=== PATIENT | female | born 1950 | race Caucasian/White ===

== ENCOUNTER → 2018-02-08 08:13 | Outpatient (CLI) | payer MEDICARE, BC, SELFPAY ==
[2018-02-08 14:08] LABS: Hemoglobin A1C 9.3 % (4.5-6.2)
== END ==
PROVIDERS: PCP Family Medicine; Visit Provider Family Medicine
DX: E11.40 Type 2 diabetes mellitus with diabetic neuropathy, unspecified (principal)
CPT/HCPCS: 36415; 83036

== ENCOUNTER 2018-05-17 07:19 | Outpatient (CLI) | payer MEDICARE, BC, SELFPAY ==
[2018-05-17 09:44] LABS: ALT 59 U/L (12-78); AST 29 U/L (15-37); Albumin 3.6 g/dL (3.4-5.0); Alkaline Phosphatase 121 U/L (46-116); Anion Gap 8.7 mmol/L (3-11); BUN 18 mg/dL (7-18); Bilirubin, Total 1.1 mg/dL (0.2-1.0); CO2 28.3 mmol/L (21.0-32.0); CREATININE 0.75 mg/dL (0.55-1.02); Calcium 9.1 mg/dL (8.5-10.1); Chloride 101 mmol/L (98-107); Glucose 328 mg/dL (70-100); Potassium 4.5 mmol/L (3.5-5.1); Sodium 138 mmol/L (136-145); Total Protein 6.7 g/dL (6.4-8.2)
[2018-05-17 11:21] LABS: Hemoglobin A1C 9.7 % (4.5-6.2)
== END 2018-05-17 07:39 ==
PROVIDERS: PCP Family Medicine; Visit Provider Family Medicine
DX: E11.40 Type 2 diabetes mellitus with diabetic neuropathy, unspecified (principal); I10 Essential (primary) hypertension; I27.20 Pulmonary hypertension, unspecified
CPT/HCPCS: 36415; 80053; 83036

== ENCOUNTER 2018-07-12 08:46 | Outpatient (CLI) | payer MEDICARE, BC, SELFPAY ==
[2018-07-12 16:08] LABS: Hemoglobin A1C 9.4 % (4.5-6.2)
== END 2018-07-12 09:06 ==
PROVIDERS: PCP Family Medicine; Visit Provider Family Medicine
DX: E11.40 Type 2 diabetes mellitus with diabetic neuropathy, unspecified (principal)
CPT/HCPCS: 83036

== ENCOUNTER 2018-07-18 12:56 | Outpatient (REF) | payer MEDICARE, SELFPAY ==
--- NOTE | 2018-07-18 11:30 | PAPFT_PTH ---
PATIENT: Madison Hoyos LOC: [facility] U#:[id number] AGE/SX: 67/F ROOM: RE07/18/[address]: Jenna Rodriguez MD, DC : 1950 BED: DIS: 07/18/2018 SPEC #: [id number] RECD: 07/18/18 13:06 STATUS: AUREA REEarnestine #: [id number] AMENA: 07/18/18 11:[address]: Jenna Rodriguez DEPT: [facility] Cytology RECD BY: Clotilde Valente Tissues: 1 - CX/ENDOCX FOR PAP SMEARS Procedures: PAP THIN PREP/UVM Screening HPV DNA PROBE Comments: [id number]
== END 2018-07-18 13:16 ==
LOC: LBN 12:56
PROVIDERS: PCP Family Medicine; Visit Provider Family Medicine
DX: Z12.4 Encounter for screening for malignant neoplasm of cervix (principal); Z11.51 Encounter for screening for human papillomavirus (HPV)
CPT/HCPCS: 88142; 87624

== ENCOUNTER 2018-07-26 01:05 | Outpatient (CLI) | payer MEDICARE, SELFPAY ==
--- NOTE | 2018-07-26 11:00 | DI.MAMMO_ITS ---
SYMPTOMS/DIAGNOSIS: SCREENING, Z12.31 MAMMOGRAM: Mammograms were interpreted according to the usual protocol including computer analysis with CAD system, tomosynthesis and C view imaging. Patient positioning was difficult due to the patient's inability to stand and hear directions as well as patient body habitus. The breasts are composed of fatty density tissue. No suspicious masses or suspicious microcalcifications are seen. There has been no significant change. IMPRESSION: Category I A, negative mammogram. Yearly screening mammography is recommended. [facility] ASSESSMENT OF FINDINGS: Negative. Category 1. Patient will receive a letter notifying them of these results. BI-RAD category A. The breasts are almost entirely fatty.
== END 2018-07-26 01:25 ==
PROVIDERS: PCP Family Medicine; Visit Provider Family Medicine
DX: Z12.31 Encounter for screening mammogram for malignant neoplasm of breast (principal)
CPT/HCPCS: 77063; 77067

== ENCOUNTER 2018-11-09 01:24 | Outpatient (CLI) | payer MEDICARE, BC, SELFPAY ==
[2018-11-09 10:43] LABS: Abs Immature Grans 0.01 k/cumm (0.0-0.09); Absolute Basophil Count 0.06 k/cumm (0.0-0.2); Absolute Lymphocyte Count 1.81 k/cumm (1.2-3.4); Absolute Monocyte Count 0.58 k/cumm (0.11-0.7); Absolute Neutrophil Count 5.16 k/cumm (1.2-6.7); Basophils % 0.8; Eosinophils % 2.6; HCT 50.8 % (36.0-46.0); HGB 17.2 g/dL (12.0-15.5); Immature Grans % 0.1; Lymphocytes % 23.1; Mean Corp. HGB Concentration 33.9 g/dL (32.0-36.0); Mean Corpuscular Hemoglobin 30.6 pg (27.0-33.0); Mean Corpuscular Volume 90.2 fL (80-95); Mean Platelet Volume 11.6 fL (8.0-11.0); Monocytes % 7.4; Platelet Count 213 x1000/uL (130-400); RBC 5.63 m/cumm (4.00-5.20); RBC Distribution Width 13.9 % (11.7-14.6); White Blood Cell Count 7.82 k/cumm (4.4-10.8)
[2018-11-09 11:05] LABS: Hemoglobin A1C 10.3 % (4.5-6.2)
[2018-11-09 11:35] LABS: Iron 75 ug/dL (50-175)
[2018-11-09 11:48] LABS: Ferritin 245 ng/mL (8-388); TSH (W/Ref FT4) 4.15 uIU/mL (0.358-3.74)
[2018-11-09 12:05] LABS: FREE T4 1.03 ng/dL (0.76-1.46)
== END 2018-11-09 01:44 ==
PROVIDERS: PCP Family Medicine; Visit Provider Family Medicine
DX: D75.1 Secondary polycythemia (principal); E03.9 Hypothyroidism, unspecified; I10 Essential (primary) hypertension; I27.20 Pulmonary hypertension, unspecified; E11.40 Type 2 diabetes mellitus with diabetic neuropathy, unspecified
CPT/HCPCS: 36415; 82728; 83036; 83540; 84439; 84443; 85025

== ENCOUNTER 2019-01-09 11:13 | Inpatient (IN) | payer MEDICARE, BC, SELFPAY ==
[2019-01-09 11:15] VITALS: BP 176/72; PULSE 107; RESP 16; TEMP 37.2; O2SAT 96
--- NOTE | 2019-01-09 11:49 | ED.GENADUL_ITS ---
Discharge Plan Discharge Details Chief Complaint: Cellulitis Admit Date/Time: 01/09/19 12:52 Admit Provider: Juliann Mack Attending Provider: Juliann Mack Primary Care Provider: Jenna Rodriguez ED Provider: Dennis Hernandez Discharge Data Discharge Date/Time-TO BE ENTERED AT DEPARTURE: 01/09/19 13:42 Medical Decision Making <Dennis Hernandez NP - Last Filed: 01/10/19 13:01> Patient presenting to the emergency department for chief complaint of rash to her breast. Patient states that she has had this for the past couple weeks and been trying various creams and ointments to get to improve but it is worsened. Patient denies any fever chills, chest pain, or difficulty breathing but she does state significant discomfort to her bilateral breast. Physical exam shows significant candidal dermatitis to the bilateral breast with some now spreading erythema mainly up in the left breast with some noted on the right breast. Exam is otherwise unremarkable. Patient is tachycardic and has history of diabetes and multiple other skin infections. Patient's blood sugar check is significantly elevated from baseline so plan to give subcu insulin pending further results. Labs were ordered including skin culture, blood cultures IV fluids, nystatin plus barrier, and Ancef for cellulitis. Review of labs show leukocytosis, elevated glucose, patient still pending cultures. Given patient's initial presentation with tachycardia, elevated glucose, and concern for significant infection I do feel that patient needs to be admitted. Called and spoke with Dr. Mack who agreed to admit the patient. Patient was also in agreement with this plan of care. Admitting provider did request EKG given patient's history of A. fib and concern for RVR. EKG was reviewed with attending physician and see notation for full interpretation but no signs of RVR is noted. <Remy Cabrales DO - Last Filed: 01/09/19 13:58> EKG 12: 33 Rate 74, QTc 457, QRS 80, atrial fibrillation with questionable underlying a trial flutter,, no significant ST elevations or depressions, no significant T wave inversions. Q waves noted in lead III. This Q wave is present on prior EKG from [facility] <Dennis Hernandez NP - Last Filed: 01/10/19 13:01> General Mode of arrival: ambulatory . Date/Time Provider Initiated Documentation: 01/09/19 11:16 . Limitations to Documentation: no limitations . Information obtained by: patient and RN notes reviewed . History of Present Illness 68 year old F presents to the emergency department with the chief complaint of Rash, described as severe, with intensity rated at 10. Quality is described as burning and sharp, and is localized to the chest (Bilateral breast). Patient started experiencing this week(s) (2) and it has been constant. No relieving factors improve symptom(s), No exacerbating factors reported . Patient did receive the following treatments prior to arrival, none Related Data Home Medications Medication Instructions Recorded Confirmed magnesium oxide 400 mg PO BID 09/22/12 01/09/19 nystatin 0 TOPICAL BID #60 gm 06/27/17 11/14/18 triamcinolone acetonide 2 - 4 gm TOPICAL BID PRN #80 gm 06/27/17 01/09/19 acetaminophen [Tylenol] 650 mg PO Q4H PRN PRN tab 11/18/17 01/09/19 atorvastatin 40 mg PO DAILY #90 tab-cap 02/13/18 01/09/19 fluoxetine [Prozac] 40 mg PO QAM #90 cap 02/13/18 01/09/19 levothyroxine 50 mcg PO DAILY #90 tab-cap 02/13/18 01/09/19 losartan [Cozaar] 100 mg PO QAM #90 tab-cap 02/13/18 01/09/19 metformin [Glucophage Xr] 750 mg PO DAILY #90 tab 02/13/18 01/09/19 ropinirole 1 mg tablet 3 mg PO HS #150 tab 03/27/18 01/09/19 insulin syringe needleless 1 mL #120 syringe 04/10/18 01/09/19 pen needle, diabetic 30 gauge x #300 ndl 04/10/18 01/09/1911/23 apixaban 5 mg tablet 5 mg PO BID #180 tab-cap 05/22/18 01/09/19 furosemide 80 mg tablet 80 mg PO DAILY #90 tab-cap 05/22/18 01/09/19 insulin U- 100 regular human 100 15 unit SUB-Q AC #1000 unit MDD 75 07/13/18 01/09/19 unit/mL injection solution metoprolol succinate ER 200 mg 200 mg PO DAILY #90 tab 07/13/18 01/09/19 tablet,extended release 24 hr insulin NPH isophane U-100 human 65 unit SUB-Q BID@0800,1999 #10 07/19/18 01/09/19 100 unit/mL (3 mL) subcutaneous pen vial blood-glucose meter #1 each 11/14/18 01/09/19 spironolactone 25 mg tablet 25 mg PO BID DIURETIC #60 tab 11/14/18 01/09/19 blood sugar diagnostic strips #400 each 11/29/18 01/09/19 lancets 28 gauge #400 ea 11/29/18 01/09/19 Previous Rx's Medication Instructions Recorded acetaminophen [Tylenol] 650 mg PO Q4H PRN PRN tab 11/18/17 atorvastatin 40 mg PO DAILY #90 tab-cap 02/13/18 fluoxetine [Prozac] 40 mg PO QAM #90 cap 02/13/18 levothyroxine 50 mcg PO DAILY #90 tab-cap 02/13/18 losartan [Cozaar] 100 mg PO QAM #90 tab-cap 02/13/18 metformin [Glucophage Xr] 750 mg PO DAILY #90 tab 02/13/18 ropinirole 1 mg tablet 3 mg PO HS #150 tab 03/27/18 insulin syringe needleless 1 mL #120 syringe 04/10/18 pen needle, diabetic 30 gauge x #300 ndl 04/10/1811/23 apixaban 5 mg tablet 5 mg PO BID #180 tab-cap 05/22/18 furosemide 80 mg tablet 80 mg PO DAILY #90 tab-cap 05/22/18 insulin U- 100 regular human 100 15 unit SUB-Q AC #1000 unit MDD 75 07/13/18 unit/mL injection solution metoprolol succinate ER 200 mg 200 mg PO DAILY #90 tab 07/13/18 tablet,extended release 24 hr insulin NPH isophane U-100 human 65 unit SUB-Q BID@0800,1999 #10 07/19/18 100 unit/mL (3 mL) subcutaneous pen vial blood-glucose meter #1 each 11/14/18 spironolactone 25 mg tablet 25 mg PO BID DIURETIC #60 tab 11/14/18 blood sugar diagnostic strips #400 each 11/29/18 lancets 28 gauge #400 ea 11/29/18 Allergies Allergy/AdvReac Type Severity Reaction Status Date / Time No Known Allergies Allergy Unverified 01/09/19 11:51 General Stated Complaint: Cellulitis JOLEEN: 3 Review of Systems <Dennis Hernandez NP - Last Filed: 01/10/19 13:01> Constitutional Denies chills and Denies fever(s) Cardiovascular Denies chest pain and Denies dyspnea Respiratory Denies cough and Denies dyspnea Genitourinary Denies nipple discharge Integumentary/Breasts Reports as per HPI, Reports breast pain, Denies nipple discharge, Reports erythema, Reports skin pain and Reports skin ulcer PFSH <Dennis Hernandez NP - Last Filed: 01/10/19 13:01> Medical History Vitamin D deficiency (Chronic 05/07/15) Type 2 diabetes mellitus with diabetic neuropathy (Chronic 05/13/15) Transient ischemic attack (Chronic) Sensorineural hearing loss, bilateral (Chronic 05/24/17) Sciatica (Chronic) Pulmonary hypertension (Chronic 04/13/17) Polycythemia (Chronic 03/08/17) Otosclerosis (Chronic 10/14/14) Osteoarthritis (Chronic) Organic sleep apnea, 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) Mixed hearing loss, bilateral (Chronic 10/14/14) Increased body mass index (Chronic) Hypothyroidism (Chronic 01/09/13) Hearing loss (Chronic) Gout (Chronic 03/27/13) Fracture of lumbar spine (Chronic 11/15/13) 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) Essential hypertension (Chronic 06/22/13) Elev transaminase/LDH (Chronic 01/09/13) Depressive disorder (Chronic) Cellulitis of leg (Chronic 10/31/14) Cataract (Chronic) Atrial fibrillation (Chronic 04/13/17) Amputated toe (Chronic) Displaced bimalleolar fracture of right ankle (Chronic 05/29/14) Bilateral lower leg cellulitis (Chronic 05/29/14) Morbid obesity (Chronic) Hyperlipidemia (Chronic) Hypertension (Chronic) Depression (Chronic) Hypothyroidism (Chronic) Restless legs syndrome (Chronic) Sleep apnea with use of continuous positive airway pressure (CPAP) (Chronic) Venous stasis (Chronic) History of tobacco use (Chronic) H/O fracture of ankle (Chronic) Insomnia (Chronic) Hearing loss (Chronic) 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 Grandfather Heart disease Grandfather Heart disease Grandmother Diabetes Grandmother Diabetes Sister No problems noted. Sister No problems noted. Sister Diabetes Sister No problems noted. Brother No problems noted. Brother No problems noted. Social History Smoking/Tobacco Use Status: Former Tobacco Use Alcohol Intake: never Drug use: Never Substance use type: does not use Do you feel safe at home: Yes Do you feel safe in your relationship?: Yes Exam <Dennis Hernandez NP - Last Filed: 01/10/19 13:01> Const General: cooperative and no acute distress Orientation: alert, awake and oriented x3 Neck Neck: normal visual inspection, full ROM, no lymphadenopathy, no meningeal signs, trachea midline, supple and no anterior neck swelling Chest Breast inspection: abnormal inspection of the breast (Erythema and white odor discharge) Breast palpation: normal palpation of the breasts Resp Effort & Inspection: normal respiratory effort and able to speak in complete sentences Auscultation: clear to auscultation bilaterally Cardio Rate: regular rate Rhythm: abnormal rhythm irregularly irregular Heart Sounds: S1 normal, S2 normal, no click, no gallops, no murmurs and no rubs Course <Dennis Hernandez NP - Last Filed: 01/10/19 13:01> Vital Signs Temperature 37.2 C 01/09/19 11:15 Pulse 107 H 01/09/19 11:15 Respiratory Rate 16 01/09/19 11:15 Blood Pressure 176/72 H 01/09/19 11:15 Pulse Oximetry 96 01/09/19 11:15 Temperature 37.2 C 01/09/19 11:15 Temperature Source Oral 01/09/19 11:15 Pulse 107 H 01/09/19 11:15 Respiratory Rate 16 01/09/19 11:15 Blood Pressure 176/72 H 01/09/19 11:15 Blood Pressure Position Sitting 01/09/19 11:15 Pulse Oximetry 96 01/09/19 11:15 Oxygen Delivery Method Room Air 01/09/19 11:15 Oxygen Flow Rate 0 01/09/19 11:15 Pain Level 10 01/09/19 11:15 Lab/Test Results Lab/Test Results: 01/09/19 11:21 Blood Blood Culture - Pending 01/09/19 11:21 Blood Blood Culture - Pending 01/09/19 11:21 Breast - Left Skin Culture - Pending
[2019-01-09 11:51] LABS: Abs Immature Grans 0.04 k/cumm (0.0-0.09); Absolute Basophil Count 0.05 k/cumm (0.0-0.2); Absolute Lymphocyte Count 1.83 k/cumm (1.2-3.4); Absolute Monocyte Count 0.94 k/cumm (0.11-0.7); Absolute Neutrophil Count 8.57 k/cumm (1.2-6.7); Basophils % 0.4; Eosinophils % 1.6; HCT 45.1 % (36.0-46.0); HGB 15.4 g/dL (12.0-15.5); Immature Grans % 0.3; Lactate 1.7 mmol/L (0.6-1.4); Lymphocytes % 15.8; Mean Corp. HGB Concentration 34.1 g/dL (32.0-36.0); Mean Corpuscular Hemoglobin 31.1 pg (27.0-33.0); Mean Corpuscular Volume 91.1 fL (80-95); Mean Platelet Volume 11.4 fL (8.0-11.0); Monocytes % 8.1; Neutrophils % 73.8; Platelet Count 226 x1000/uL (130-400); RBC 4.95 m/cumm (4.00-5.20); RBC Distribution Width 13.4 % (11.7-14.6); White Blood Cell Count 11.61 k/cumm (4.4-10.8)
[2019-01-09 11:52] LABS: Absolute Eosinophil Count 0.19 k/cumm (0.0-0.7)
[2019-01-09 12:10] LABS: ALT 18 U/L (12-78); AST 16 U/L (15-37); Albumin 2.8 g/dL (3.4-5.0); Alkaline Phosphatase 166 U/L (46-116); Anion Gap 14.5 mmol/L (3-11); BUN 18 mg/dL (7-18); Bilirubin, Total 1.1 mg/dL (0.2-1.0); CO2 20.5 mmol/L (21.0-32.0); CREATININE 0.76 mg/dL (0.55-1.02); Calcium 8.5 mg/dL (8.5-10.1); Chloride 100 mmol/L (98-107); Glucose 426 mg/dL (70-100); Potassium 3.7 mmol/L (3.5-5.1); Sodium 135 mmol/L (136-145)
[2019-01-09] MEDS: Normal Saline Flush 10 ML SYR IVP ×2 (12:22→20:06)
[2019-01-09] MEDS: Acetaminophen 325 MG TAB 650 MG PO (12:22)
[2019-01-09] MEDS: Normal Saline 500 ML IV (12:22)
[2019-01-09] MEDS: Nystatin POWDER 60 GM JAR TP ×2 (12:23→20:49)
[2019-01-09] MEDS: Insulin REGULAR-Human 100 UNITS/ML UNIT 10 UNITS SC (12:41)
[2019-01-09 14:00] VITALS: BP 188/62; PULSE 70; RESP 16; TEMP 36.8; O2SAT 96
[2019-01-09 14:01] VITALS: BP 188/62; PULSE 70; RESP 16; TEMP 36.8; O2SAT 96
[2019-01-09] MEDS: Normal Saline 1,000 ML 150 ML IV ×2 (15:27→22:19)
[2019-01-09 16:28] VITALS: BP 168/84; PULSE 99; RESP 16; TEMP 36.3; O2SAT 94
[2019-01-09] MEDS: Insulin Aspart 300 UNITS/3 ML PEN SC (17:11)
--- NOTE | 2019-01-09 18:32 | W.PM.HP.N ---
Date of service: 01/09/19 Time of Service: 18:32 Assessment and Plan (1) Cellulitis of breast: Current visit: Yes Status: Acute likely a complication of fungal dermatitis. Continue IV cefazolin. Blood cultures were collected - will await results, as was skin culture. For now, would continue IVF. Treat fungal component as well (2) Fungal dermatitis: Current visit: Yes Status: Acute Rx nystatin (3) Uncontrolled diabetes mellitus: Current visit: Yes Status: Acute Treat with basal bolus insulin as well as SSI. Treat underlying infection. Obtain diabetes education consult. (4) Cellulitis of lower extremity: Current visit: No Status: Acute Likely chronic. On cefazolin - will monitor for improvement. (5) Pulmonary hypertension: Current visit: No Status: Chronic Due to KELLEY - noncompliant with CPAP. She firmly refused a CPAP in conversation with me today. (6) Hypothyroidism: Current visit: No Status: Chronic Check TFTs (7) Atrial fibrillation: Current visit: No Status: Chronic Appears to be paroxysmal, rate controlled. NO change in home therapy (8) Essential hypertension: Current visit: No Status: Chronic No change in home therapy (9) Discharge planning issues: Current visit: Yes Status: Acute Upon code discusison with me, the patient elected to be DNR/DNI (10) DVT prophylaxis: Current visit: Yes Status: Acute On therapeutic eliquis History of Present Illness Chief Complaint: Pain and redness under breasts Narrative: Ms Hoyos is a 68 year old female with PMHx of IDDM2, HTN, hyperlipidemia, Afib on eliquis, chronic venous stasis dermatitis of BLE's, obesity with BMI of 39, KELLEY (not using CPAP) who presented to [facility] today c/o redness and pain in the area under her bilateral breasts, involving the breasts. Everything started 2 weeks ago, per patient, initially on the right breast, then spreading to the left. She tried antifungals at home, but they did not work. She denies any fevers. In the ED, she was thought to have fungal dermatitis involving the skin under B breasts as well as B breasts proper with superimposed bacterial cellulitis. She was initiated on IV cefazolin, and we were asked to admit the patient for further care. Notably, the patient's BG in the ED was 426. The patient states she is always compliant with her medications, but she cannot tell me what they are. Review of Systems Review of Systems 12 systems reviewed. Pertinent positives and negatives are as per HPI. 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, bilateral (Chronic 10/14/14) Increased body mass index (Chronic) Hypothyroidism (Chronic 01/09/13) Hearing loss (Chronic) Gout (Chronic 03/27/13) Fracture of lumbar spine (Chronic 11/15/13) 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) Essential hypertension (Chronic 06/22/13) Elev transaminase/LDH (Chronic 01/09/13) Depressive disorder (Chronic) Cellulitis of leg (Chronic 10/31/14) Cataract (Chronic) Atrial fibrillation (Chronic 04/13/17) Amputated toe (Chronic) Displaced bimalleolar fracture of right ankle (Chronic 05/29/14) Bilateral lower leg cellulitis (Chronic 05/29/14) Morbid obesity (Chronic) Hyperlipidemia (Chronic) Hypertension (Chronic) Depression (Chronic) Hypothyroidism (Chronic) Restless legs syndrome (Chronic) Sleep apnea with use of continuous positive airway pressure (CPAP) (Chronic) Venous stasis (Chronic) History of tobacco use (Chronic) H/O fracture of ankle (Chronic) Insomnia (Chronic) Hearing loss (Chronic) 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 Grandfather Heart disease Grandfather Heart disease Grandmother Diabetes Grandmother Diabetes Sister No problems noted. Sister No problems noted. Sister Diabetes Sister No problems noted. Brother No problems noted. Brother No problems noted. Social History Smoking/Tobacco Use Status: Former Tobacco Use Alcohol Intake: never Drug use: Never Substance use type: does not use Do you feel safe at home: Yes Do you feel safe in your relationship?: Yes Meds Home Medications Medication Instructions Recorded Confirmed Type magnesium oxide 400 mg PO BID 09/22/12 01/09/19 History nystatin 0 TOPICAL BID #60 gm 06/27/17 11/14/18 History triamcinolone acetonide 2 - 4 gm TOPICAL BID PRN #80 gm 06/27/17 01/09/19 History acetaminophen [Tylenol] 650 mg PO Q4H PRN PRN tab 11/18/17 01/09/19 Rx atorvastatin 40 mg PO DAILY #90 tab-cap 02/13/18 01/09/19 Rx fluoxetine [Prozac] 40 mg PO QAM #90 cap 02/13/18 01/09/19 Rx levothyroxine 50 mcg PO DAILY #90 tab-cap 02/13/18 01/09/19 Rx losartan [Cozaar] 100 mg PO QAM #90 tab-cap 02/13/18 01/09/19 Rx metformin [Glucophage Xr] 750 mg PO DAILY #90 tab 02/13/18 01/09/19 Rx ropinirole 1 mg tablet 3 mg PO HS #150 tab 03/27/18 01/09/19 Rx insulin syringe needleless 1 mL #120 syringe 04/10/18 01/09/19 Rx pen needle, diabetic 30 gauge x #300 ndl 04/10/18 01/09/19 Rx 5/16 apixaban 5 mg tablet 5 mg PO BID #180 tab-cap 05/22/18 01/09/19 Rx furosemide 80 mg tablet 80 mg PO DAILY #90 tab-cap 05/22/18 01/09/19 Rx insulin U- 100 regular human 100 15 unit SUB-Q AC #1000 unit MDD 75 07/13/18 01/09/19 Rx unit/mL injection solution metoprolol succinate ER 200 mg 200 mg PO DAILY #90 tab 07/13/18 01/09/19 Rx tablet,extended release 24 hr insulin NPH isophane U-100 human 65 unit SUB-Q BID@0800,2000 #10 07/19/18 01/09/19 Rx 100 unit/mL (3 mL) subcutaneous pen vial blood-glucose meter #1 each 11/14/18 01/09/19 Rx spironolactone 25 mg tablet 25 mg PO BID DIURETIC #60 tab 11/14/18 01/09/19 Rx blood sugar diagnostic strips #400 each 11/29/18 01/09/19 Rx lancets 28 gauge #400 ea 11/29/18 01/09/19 Rx Allergies Allergy/AdvReac Type Severity Reaction Status Date / Time No Known Allergies Allergy Unverified 01/09/19 11:51 Exam Narrative Exam Narrative: General: very pleasant middle-aged obese female, appears older than her stated age, [place], A&OX3, laying comfortably in bed Neuro: [place], A&OX3, CN II - XII intact, no focal neurological deficits Psych: appropriate speech pattern/content Skin: Skin folds under B breasts are very erythematous with excoriations, drainage/smell, c/w fungal dermatitis and bacterial cellulitis HEENT: EOMI, MMM, atraumatic, normocephalic, clear oropharynx, mild goiter, no submandibular or cervical lymphadenopathy, no goiter or JVD Heart: RRR, no m/r/g Lungs; CTAB GI: abdomen is soft, nontender, nondistended Extremities: BLE with +1 edema, 2+ pedal pulses, chronic venous stasis with possible superimposed acute on chronic cellulitis. Results Labs : 01/09/19 11:34 01/09/19 11:34 Laboratory Results - last 24 hr 01/09/19 01/09/19 01/09/19 11:34 11:34 11:34 WBC 11.61 H RBC 4.95 Hgb 15.4 Hct 45.1 MCV 91.1 MCH 31.1 MCHC 34.1 RDW 13.4 Plt Count 226 MPV 11.4 H Immature Gran % 0.3 Neutrophils % 73.8 Lymphocytes % 15.8 Monocytes % 8.1 Eosinophils % 1.6 Basophils % 0.4 Absolute Neutrophils 8.57 H Absolute Lymphocytes 1.83 Absolute Monocytes 0.94 H Absolute Eosinophils 0.19 Absolute Basophils 0.05 Sodium 135 L Potassium 3.7 Chloride 100 Carbon Dioxide 20.5 L Anion Gap 14.5 H BUN 18 Creatinine 0.76 Estimated GFR/1.73 m2 >= 60.00 Glucose 426 H Lactate 1.7 H Calcium 8.5 Total Bilirubin 1.1 H AST 16 ALT 18 Alkaline Phosphatase 166 H Total Protein 7.0 Albumin 2.8 L Last Vital Signs Temp 36.3 C L 01/09/19 16:28 Pulse 99 H 01/09/19 16:28 Resp 16 01/09/19 16:28 BP 168/84 H 01/09/19 16:28 Pulse Ox 94 L 01/09/19 16:28
[2019-01-09 20:00] VITALS: BP 183/99; PULSE 71; RESP 19; TEMP 36.4; O2SAT 96
[2019-01-09] MEDS: Magnesium Oxide 400 MG TAB PO (20:06)
[2019-01-09] MEDS: Apixaban 5 MG TAB PO (20:06)
[2019-01-09] MEDS: Insulin NPH-Human 300 UNITS/3 ML PEN 65 UNIT SC (20:48)
[2019-01-09] MEDS: rOPINIRole 1 MG TAB 3 MG PO (21:05)
[2019-01-09 23:15] VITALS: BP 190/110; PULSE 66; RESP 17; TEMP 37.1; O2SAT 95
[2019-01-10 03:25] VITALS: BP 184/84; PULSE 66; RESP 18; TEMP 37; O2SAT 94
[2019-01-10] MEDS: Normal Saline 1,000 ML 150 ML IV (04:43)
[2019-01-10] MEDS: Levothyroxine 50 MCG TAB PO (06:12)
[2019-01-10 07:15] LABS: Lactate-non-spesis 1.1 mmol/l (0.6-1.4)
[2019-01-10 07:18] LABS: Abs Immature Grans 0.02 k/cumm (0.0-0.09); Absolute Basophil Count 0.03 k/cumm (0.0-0.2); Absolute Eosinophil Count 0.21 k/cumm (0.0-0.7); Absolute Lymphocyte Count 2.11 k/cumm (1.2-3.4); Absolute Monocyte Count 0.68 k/cumm (0.11-0.7); Absolute Neutrophil Count 5.54 k/cumm (1.2-6.7); Basophils % 0.3; Eosinophils % 2.4; HCT 42.2 % (36.0-46.0); HGB 14.3 g/dL (12.0-15.5); Immature Grans % 0.2; Lymphocytes % 24.6; Mean Corp. HGB Concentration 33.9 g/dL (32.0-36.0); Mean Corpuscular Hemoglobin 31.2 pg (27.0-33.0); Mean Corpuscular Volume 92.1 fL (80-95); Mean Platelet Volume 10.8 fL (8.0-11.0); Monocytes % 7.9; Neutrophils % 64.6; Platelet Count 216 x1000/uL (130-400); RBC 4.58 m/cumm (4.00-5.20); RBC Distribution Width 13.5 % (11.7-14.6); White Blood Cell Count 8.59 k/cumm (4.4-10.8)
[2019-01-10 07:29] LABS: Anion Gap 10.2 mmol/L (3-11); BUN 11 mg/dL (7-18); CO2 24.8 mmol/L (21.0-32.0); CREATININE 0.58 mg/dL (0.55-1.02); Chloride 105 mmol/L (98-107); Glucose 242 mg/dL (70-100); Potassium 3.6 mmol/L (3.5-5.1); Sodium 140 mmol/L (136-145)
[2019-01-10 07:44] LABS: Magnesium 1.5 mg/dL (1.8-2.4); TSH (W/Ref FT4) 2.98 uIU/mL (0.358-3.74)
[2019-01-10 07:45] VITALS: BP 177/98; PULSE 73; RESP 18; TEMP 37.2; O2SAT 95
[2019-01-10] MEDS: Magnesium Oxide 400 MG TAB PO ×3 (08:08→20:04)
[2019-01-10] MEDS: FLUoxetine 20 MG CAP 40 MG PO (08:08)
[2019-01-10] MEDS: Spironolactone 25 MG TAB PO ×2 (08:08→16:57)
[2019-01-10] MEDS: Apixaban 5 MG TAB PO ×2 (08:08→20:04)
[2019-01-10] MEDS: Metoprolol CR 100 MG TABCR 200 MG PO (08:08)
[2019-01-10] MEDS: Losartan 50 MG TAB 100 MG PO (08:08)
[2019-01-10] MEDS: Furosemide 40 MG TAB 80 MG PO (08:08)
[2019-01-10] MEDS: Atorvastatin 40 MG TAB PO (08:08)
[2019-01-10] MEDS: Insulin REGULAR-Human 100 UNITS/ML UNIT 15 UNITS SC ×3 (08:17→16:58)
[2019-01-10] MEDS: Insulin NPH-Human 300 UNITS/3 ML PEN 65 UNIT SC ×2 (08:18→20:04)
[2019-01-10] MEDS: Insulin Aspart 300 UNITS/3 ML PEN SC ×2 (08:18→12:00)
--- NOTE | 2019-01-10 10:30 | OT.INIE ---
Occupational Therapy Notes Inpatient Occupational Therapy Evaluation Date:01/10/19 Referring Doctor:Jazlyn Conde NP OT Orders: generalized weakness and deconditioning, ambulates with walker Precautions: Standard PATIENT PROFILE/ADMITTING DIAGNOSIS: Pt is a 68 year old female who presented to the ER with complaints of pain under her breasts. She was admitted to [facility] for cellulitis of breast and fungal dermatitis. 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, bilateral (Chronic 10/14/14) Increased body mass index (Chronic) Hypothyroidism (Chronic 01/09/13) Hearing loss (Chronic) Gout (Chronic 03/27/13) Fracture of lumbar spine (Chronic 11/15/13) 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) Essential hypertension (Chronic 06/22/13) Elev transaminase/LDH (Chronic 01/09/13) Depressive disorder (Chronic) Cellulitis of leg (Chronic 10/31/14) Cataract (Chronic) Atrial fibrillation (Chronic 04/13/17) Amputated toe (Chronic) Displaced bimalleolar fracture of right ankle (Chronic 05/29/14) Bilateral lower leg cellulitis (Chronic 05/29/14) Morbid obesity (Chronic) Hyperlipidemia (Chronic) Hypertension (Chronic) Depression (Chronic) Hypothyroidism (Chronic) Restless legs syndrome (Chronic) Sleep apnea with use of continuous positive airway pressure (CPAP) (Chronic) Venous stasis (Chronic) History of tobacco use (Chronic) H/O fracture of ankle (Chronic) Insomnia (Chronic) Hearing loss (Chronic) 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 She states that she uses a FWW at baseline for mobility but her is currently using it because he is having difficulty. She has difficulty hearing, she states she is totally (I) at baseline and her drives her to appointments and to the grocery store. She does not have a shower. She baths by sponge bath while sitting on her toilet. She notes that she has not washed her hair for about 1 month when pain under her breast started because it is too difficult to get her head under the faucet. She has a new ramp in her home which helps her get in and out of her home without having to worry about stairs. Pt has meals on wheels come 3x/week which she feels is very helpful. Equipment owned/DME: FWW, 4WW, ramp SUBJECTIVE: Pt was sitting in chair when OT arrived. She was agreeable to OT session. OBJECTIVE: General Observation: Hard of hearing, IV (L) UE, visibly dirty on (B) UE/LE and hair. Pt is pleasant and answers questions appropriately. Mental Status: Alert to name and place Pain: no c/o pain ROM: RUE shoulder flexion limited to 120* d/t shoulder injury chronic, elbow WNL, video game engineer and hand WNL L UE shoulder flexion limited to 125* d/t shoulder injury chronic, elbow WNL, video game engineer and hand WNL STRENGTH: RUE Shoulder flexion 3+/5, bicep 4/5, tricep 4/5, video game engineer is symmetrical and weak LUE Shoulder flexion 3+/5, bicep 4/5, tricep 4/5, video game engineer is symmetrical and weak FUNCTIONAL MOBILITY/ADLS: Transfers with FWW Sit-Stand (S) Stand-sit (S) Bed-Chair SBA Chair-bed SBA BATHING Pt denies bathing at this time reporting that she doesn't want to right now, she reports she is willing to later. DRESSING Seated position Dressing UE (I) Dressing LE (I) michele and doff (B) socks GROOMING NT TOILETING Pt reports that she has recently used the bathroom 3x this morning and does not need any help with this. EATING (I) with hand to mouth translation. BALANCE: Static sitting Normal Dynamic Sitting Good Static Standing Good Dynamic Standing Good SPECIAL TESTS: Daily Activity Limitations Standardized Measure [facility] AM PAC ?6 clicks? Daily Activity Inpatient Short Form: Raw score: 18 Standardized score: 38.66 CMS score: 46.65% INFORMED CONSENT/EDUCATION: Pt instructed in purpose of OT Consult and plan of care. ASSESSMENT: Patient is a 68-year-old female referred to occupational therapy services with diagnosis of cellulitis of breast and fungal dermatitis. Patient presents with clinical signs and symptoms consistent with dx, as demonstrated by the following impairment level findings: Decreased functional activity tolerance, decreased (B) UE ROM, pain in shoulders in flexed position. Impairments are contributing to the following functional limitations: Difficulty performing bathing routine, decreased overall gross and fine motor control of (B) UE, decreased overall functional activity tolerance. AMPAC score 18, CMS score 46.65% Patient is assessed as a Low 18772 complexity based on the following: History: See Above Examination: See Above Presentation: Evolving Decision Making: AMPAC score 18, CMS score 46.65% GOALS Goals x1 week 1. Transfers- FWW (S) 2. Dressing- Sitting in chair (I) with UE/LE dressing with ideal technique 3. Bathing- Sitting in chair (I) with UE/LE bathing 4. Toileting- on toilet (I) PLAN OF CARE/TREATMENT PLAN: 1x/day, 5 days/ week x 1week Initiate Occupational Therapy Services for bathing, dressing, grooming, toileting, eating, transfer training. DISCHARGE RECOMMENDATIONS OT recommends that pt return home with HHOT services to assess pts safety for ADLs in home environment. TREATMENT TIME/MINUTES/CODES 62079, 20 minutes (10:10) Shakira Nickerson OTR/[facility]
[2019-01-10] MEDS: Nystatin POWDER 60 GM JAR TP ×3 (11:09→20:05)
--- NOTE | 2019-01-10 11:09 | W.INDIABCONS ---
Date of service: 01/10/19 Time of Service: 11:09 Diabetes Inpatient Consult DESCRIPTION/ASSESSMENT: Appreciate diabetes consult for Madison Hoyos who is hospitalized with cellulitis. She is well known to us from outpatient diabetes support. She is hard of hearing and it was difficult for her to hear our conversation. A1c 10.3 BMI 39 Blood sugars this hospitalization 213-377. She is managed with her home insulin dosing of 65u NPH twice daily and 15u Regular insulin before meals. Here she has the addition of resistant insulin correction. She voices understanding that her infection may be causing hyperglycemia however she states her blood sugars have been elevated at home as well. She does the shopping and cooking though she is not able to stand for any length of time and uses a walker to move independently. She and her get Meals on Wheels 3 days a week which is what is available in [place]. She is seeing the clinical nurse educator at [facility] at this time. INTERVENTION: She may benefit from an increase in basal insulin initially and will watch blood sugars as the day progresses to see if mealtime insulin could help maintain blood sugars closer to the goal to heal infection. Suggest increase in NPH to 67units twice daily. PLAN: Will follow blood sugars Time Spent in Nutritional Counseling and Treatment: 10 minutes face to face
[2019-01-10 11:14] VITALS: BP 151/80; PULSE 63; RESP 16; TEMP 37.1; O2SAT 96
--- NOTE | 2019-01-10 11:19 | DM INPTCON_ITS ---
Date of service: 01/10/19 Time of Service: 11:09 Diabetes Inpatient Consult DESCRIPTION/ASSESSMENT: Appreciate diabetes consult for Madison Hoyos who is hospitalized with cellulitis. She is well known to us from outpatient diabetes support. She is hard of hearing and it was difficult for her to hear our conversation. A1c 10.3 BMI 39 Blood sugars this hospitalization 213-377. She is managed with her home insulin dosing of 65u NPH twice daily and 15u Regular insulin before meals. Here she has the addition of resistant insulin correction. She voices understanding that her infection may be causing hyperglycemia however she states her blood sugars have been elevated at home as well. She does the shopping and cooking though she is not able to stand for any length of time and uses a walker to move independently. She and her get Meals on Wheels 3 days a week which is what is available in [place]. She is seeing the perinatal educator at [facility] at this time. INTERVENTION: She may benefit from an increase in basal insulin initially and will watch blood sugars as the day progresses to see if mealtime insulin could help maintain blood sugars closer to the goal to heal infection. Suggest increase in NPH to 67units twice daily. PLAN: Will follow blood sugars Time Spent in Nutritional Counseling and Treatment: 10 minutes face to face
[2019-01-10] MEDS: Normal Saline Flush 10 ML SYR IVP (12:02)
--- NOTE | 2019-01-10 12:37 | PHARADMIT ---
Addendum entered by Freedom López III 01/15/19 15:12: Pharmacy Note Subjective Provider notes breast erythema improving Objective VS-OK SCr-1.02 Mag-1.7 FSBS-300 BG-291 Wgt-88.8Kg BM TODAY Assessment ABX transitioned to PO Keflex and Doxycycline. Diflucan PO continues. Lantus increased to 10 units Plan Plan is for transfer to SNF when ready. Addendum entered by Luci Swann 01/13/19 13:22: Pharmacy Note Subjective breat cellulitis from underlying fungal infection Objective vs ok, Mag 1.7 Assessment Mag Iv bolus x 1 ordered, fluconcazole PO added(printed info from uptodate given to provider concerning interaction of apixaban and fluconazole) vancomycin(day 2) and cefazolin(day 5) continue Plan evaulate vanco trough Addendum entered by Freedom López III 01/12/19 14:52: Pharmacy Note Subjective Blood cultures continue negative. Provider note purulent drainage and mininmal improvement,, Vanco added Objective VS-OK BP-138/72, Mag-1.4 FSBS- 281/bg-21 Had BM today Assessment Magnesium 4gm bolus given, Vancomycin added to Cefazolin. Insulin adjusted Plan Continue OT & PT Addendum entered by Xenia Yost 01/11/19 11:58: Pharmacy Note Subjective pt hypoglycemic overnight; was symptomatic per nursing report PROJECT ADMIN thinks cellulitis likely a complication of fungal dermatitis Objective BP-159/96 other VS okay mag-1.5 Assessment cefazolin continues (day 3 starts this afternoon) blood cultures- no growth @ 24 hours; breast- normal and gram+ jasmin magnesium supplementation increased from 400 to 800 mg PO BID insulin NPH dose decreased from 65 to 30 units BID due to low BGs Plan continue to watch culture results Original Note: Admission Pharmacy Clinical Review CELLULITIS of breasts, uncontrolled diabetes Code Status DNR/DNI Current Weight 94.5 kg Renally Cleared and Narrow Therapeutic Index Meds CrCl~52ml/min QTc Value / Action Taken QTC 457 (Fluoxetine) BP Control, Fever BP 151/80 Afebrile pain 0 Electrolytes reviewed Mag 1.5 (Mag ox ordered) others WNL DVT Prophylaxis Apixiban for chronic Afib Opiate Usage / Scheduled Bowel Regimen Ordered Plt/SCr for Heparin / Enoxaparin Plt 216 SCr 0.58 INR for Warfarin H/H stable, WBC/Bands H/H 14.3/42.2 WBC 8.59 Antibiotic appropriateness Cefazolin 1gram IV q8h Cultures and Sensitivities Blood: pending Breast: normal scant growth preliminary Surgical ABX d/c within 24 hr DM control / Insulin Dosing BG 242 (Humulin-N scheduled, Regular insulin-scheduled, Novolog scale) Heart Failure (Check EF%) (JESSIE's, B-Block, Diuretics) Lasix 80mg oral daily, Spironolactone, Losartan, Toprol IV to PO Switch Home Meds Reviewed Home Meds Not Ordered Metformin Comments Wound care-multiple skin issues, PT/OT Fungal/bacterial infection, hard for family to care for her Cellulitis of breasts and lower extremities
[2019-01-10] MEDS: Acetaminophen 325 MG TAB PO (13:10)
--- NOTE | 2019-01-10 13:52 | CHAPLAIN ---
Madison and I remember each other from previous admissions. She had some trouble hearing me, but responded to questions. She said her isn't going to be visiting because it's hard for him. They live in [facility]. We had a short visit. I'll check in with her tomorrow.
--- NOTE | 2019-01-10 15:25 | W.PM.PROGNOT ---
Date of Service Date of service: 01/10/19 Time of Service: 15:27 Assessment and Plan (1) Cellulitis of breast: Current visit: Yes Status: Acute likely a complication of fungal dermatitis. Blood cultures have yielded no growth at 24 hours. Skin culture showing normal jasmin. Continue to follow cultures. Continue IV Ancef and antifungal nystatin powder. Continue to work on blood glucose control. (2) Fungal dermatitis: Current visit: Yes Status: Acute Continue to treat with nystatin. (3) Uncontrolled diabetes mellitus: Current visit: Yes Status: Acute Blood glucose improved with the addition of regular insulin that she takes at home. Continue with basal bolus insulin as well as a sliding scale. Continue carb consistent diet. Continue to monitor blood glucose. (4) Pulmonary hypertension: Current visit: No Status: Chronic Due to KELLEY - noncompliant with CPAP. Refuses CPAP. (5) Hypothyroidism: Current visit: No Status: Chronic TSH within range. Continue levothyroxine at current dose. (6) Atrial fibrillation: Current visit: No Status: Chronic Rate controlled. Continue home therapy with apixaban and metoprolol. (7) DVT prophylaxis: Current visit: Yes Status: Acute Therapeutic on apixaban. (8) Discharge planning issues: Current visit: Yes Status: Acute She is a DNR/DNI. She would likely benefit from rehab at a correction facility prior to returning home as she does not appear to be effectively caring for herself at home. Continue physical therapy and Occupational Therapy. This case was discussed with Dr. Mack who is in agreement. Subjective Interval history since last seen: Ms Hoyos reports feeling better today than when she presented at the hospital. She continues to have erythema and discomfort under and including bilateral breasts. She denies any other concerns, no chest pain/pressure, palpitations, shortness of breath, coughing, wheezing, she is eating and drinking and tolerating her diet, no nausea, vomiting or diarrhea. No dysuria or hematuria. Her nurse reports that the patient has not had a shower since before the cellulitis started a couple of weeks ago, raising concern about her ability to effectively care for herself at home. Exam Narrative Exam Narrative: General: very pleasant middle-aged obese female, appears older than her stated age, very [place], A&OX3, laying comfortably in bed Neuro: [place], A&OX3, no focal neurological deficits Skin: Skin folds under Bilateral breasts are very tender and erythematous with excoriations, purulent drainage under left breast. Erythema extends over bilateral breasts. Erythema appears to be receding from ink border. HEENT: Normocephalic, atraumatic, very hard of hearing, extraocular movements intact, pupils equal and round, mucous membranes moist. Neck: Supple, no JVD. Heart: Heart sounds are regular, no murmur appreciated. Lungs: Respirations even and unlabored, lung sounds clear bilaterally. GI: Normal active bowel sounds x4 quadrants, abdomen is large, soft, nontender on palpation, nondistended Extremities: Bilateral lower extremities with edema, left greater than right, left has 2+ pitting edema. 2+ pedal pulses, chronic venous stasis changes to bilateral lower extremities. 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 Objective Objective Clinical Data: Abnormal lab results 01/10/19 01/10/19 Range/Units 07:00 07:00 Glucose 242 H D (70-100) mg/dL Calcium 8.0 L (8.5-10.1) mg/dL Magnesium 1.5 L (1.8-2.4) mg/dL Vital Signs Temperature 37.1 C 01/10/19 11:14 Temperature Source Skin 01/10/19 11:14 Pulse 63 01/10/19 11:14 Pulse Rhythm Regular 01/10/19 08:32 Respiratory Rate 16 01/10/19 11:14 Respiratory Effort Non-Labored 01/10/19 08:32 Respiratory Depth Normal 01/10/19 08:32 Respiratory Pattern Normal 01/10/19 08:32 Blood Pressure 151/80 H 01/10/19 11:14 Blood Pressure Position Sitting 01/09/19 11:15 Pulse Oximetry 96 01/10/19 11:14 Oxygen Delivery Method Room Air 01/10/19 11:14 Oxygen Flow Rate 0 01/10/19 11:14 Pain Level 8 01/10/19 13:10 Comment 01/09/19 23:15 Intake & Output 01/09/19 01/10/19 01/10/19 23:59 11:59 23:59 Intake Total 2025.0 / 2025.0 1567.5 / 1807.5 240 / 1807.5 Output Total 300 / 300 450 / 450 Balance 1725.0 / 1725.0 1117.5 / 1357.5 240 / 1357.5 Weight 95.254 kg 94.5 kg Intake: IV 1545.0 / 1545.0 917.5 / 917.5 Oral 480 / 480 650 / 890 240 / 890 Output: Urine 300 / 300 450 / 450 Other: Urine Color Yellow Pale Yellow Urine Appearance Clear Clear Urine Odor Normal Normal Comment pt was very Incontinent Stool Size Small Stool Characteristics Brown Voiding Methods Bedside Commode Toilet Diaper Incontinent Laboratory Results WBC 8.59 k/cumm (4.4-10.8) 01/10/19 07:00 RBC 4.58 m/cumm (4.00-5.20) 01/10/19 07:00 Hgb 14.3 g/dL (12.0-15.5) 01/10/19 07:00 Hct 42.2 % (36.0-46.0) 01/10/19 07:00 MCV 92.1 fL (80-95) 01/10/19 07:00 MCH 31.2 pg (27.0-33.0) 01/10/19 07:00 MCHC 33.9 g/dL (32.0-36.0) 01/10/19 07:00 RDW 13.5 % (11.7-14.6) 01/10/19 07:00 Plt Count 216 x1000/uL (130-400) 01/10/19 07:00 MPV 10.8 fL (8.0-11.0) 01/10/19 07:00 Immature Gran % 0.2 01/10/19 07:00 Neutrophils % 64.6 01/10/19 07:00 Lymphocytes % 24.6 01/10/19 07:00 Monocytes % 7.9 01/10/19 07:00 Eosinophils % 2.4 01/10/19 07:00 Basophils % 0.3 01/10/19 07:00 Absolute Neutrophils 5.54 k/cumm (1.2-6.7) 01/10/19 07:00 Absolute Lymphocytes 2.11 k/cumm (1.2-3.4) 01/10/19 07:00 Absolute Monocytes 0.68 k/cumm (0.11-0.7) 01/10/19 07:00 Absolute Eosinophils 0.21 k/cumm (0.0-0.7) 01/10/19 07:00 Absolute Basophils 0.03 k/cumm (0.0-0.2) 01/10/19 07:00 Sodium 140 mmol/L (136-145) 01/10/19 07:00 Potassium 3.6 mmol/L (3.5-5.1) 01/10/19 07:00 Chloride 105 mmol/L (98-107) 01/10/19 07:00 Carbon Dioxide 24.8 mmol/L (21.0-32.0) 01/10/19 07:00 Anion Gap 10.2 mmol/L (3-11) 01/10/19 07:00 BUN 11 mg/dL (7-18) D 01/10/19 07:00 Creatinine 0.58 mg/dL (0.55-1.02) 01/10/19 07:00 Estimated GFR/1.73 m2 >= 60.00 (mL/min/1.73m2) 01/10/19 07:00 Glucose 242 mg/dL (70-100) H D 01/10/19 07:00 Lactate 1.1 mmol/l (0.6-1.4) 01/10/19 07:00 Calcium 8.0 mg/dL (8.5-10.1) L 01/10/19 07:00 Magnesium 1.5 mg/dL (1.8-2.4) L 01/10/19 07:00 Total Bilirubin 1.1 mg/dL (0.2-1.0) H 01/09/19 11:34 AST 16 U/L (15-37) 01/09/19 11:34 ALT 18 U/L (12-78) 01/09/19 11:34 Alkaline Phosphatase 166 U/L (46-116) H 01/09/19 11:34 Total Protein 7.0 g/dL (6.4-8.2) 01/09/19 11:34 Albumin 2.8 g/dL (3.4-5.0) L 01/09/19 11:34 TSH 2.98 uIU/mL (0.358-3.74) 01/10/19 07:00
--- NOTE | 2019-01-10 15:49 | INITIAL_ITS ---
- If Service Date Differs Date of service: 01/10/19 Time of Service: 15:44 Care Management Initial Assess REASON FOR HOSPITALIZATION:: Cellulitis, uncontroleld DM PAST MEDICAL HISTORY/PAST SURGICAL HISTORY:: Vitamin D deficiency (Chronic 05/07/15). Type 2 diabetes mellitus with diabetic neuropathy (Chronic 05/13/15). Transient ischemic attack (Chronic). 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 Sciatica (Chronic). Pulmonary hypertension (Chronic 04/13/17). Polycythemia (Chronic 03/08/17). Otosclerosis (Chronic 10/14/14). Osteoarthritis (Chronic). 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 Increased body mass index (Chronic). Hypothyroidism (Chronic 01/09/13). Hearing loss (Chronic). Gout (Chronic 03/27/13). Fracture of lumbar spine (Chronic 11/15/13). 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 Essential hypertension (Chronic 06/22/13). Elev transaminase/LDH (Chronic 01/09/13). Depressive disorder (Chronic). Cellulitis of leg (Chronic 10/31/14). Cataract (Chronic). Atrial fibrillation (Chronic 04/13/17). Amputated toe (Chronic). Displaced bimalleolar fracture of right ankle (Chronic 05/29/14). Bilateral lower leg cellulitis (Chronic 05/29/14). Morbid obesity (Chronic). Hyperlipidemia (Chronic). Hypertension (Chronic). Depression (Chronic). Hypothyroidism (Chronic). Restless legs syndrome (Chronic). Sleep apnea with use of continuous positive airway pressure (CPAP) (Chronic). Venous stasis (Chronic). History of tobacco use (Chronic). H/O fracture of ankle (Chronic). Insomnia (Chronic). Hearing loss (Chronic). 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 Arthritis (Chronic). Toe gangrene (Chronic). Atrial fibrillation (Chronic). Pulmonary hypertension due to sleep-disordered breathing (Chronic). Amputated toe of right foot (Chronic). Surgical History . Amputation. Colonoscopy - MAC (~2003). Extraction of cataract. PROCEDURES PREVIOUS FUNCTIONAL STATUS/SOCIAL/FAMILY SUPPORTS:: Pt resides with her Sascha in [place]. Pt states that she has no children, and that she has two cats and a dog whom are her children. Pt does not work, and states that her is her primary support. Pt does not drive, and depends on for transportation. CURRENT FUNCTIONAL STATUS:: Madison is alert she is unable to hear even with her hearing aid. CM used pen and paper to communicate with her. She does not want any additional services at home, she states no to SNF facility. CM dicussed her current cellulitis and assistance at home until it is healed which she declined. She states it is her and her spouse and he helps her at home. ADVANCE DIRECTIVES:: [facility]ST on file Has patient been provided with information about the portal?: Yes Did the patient sign up for the portal?: No CODE STATUS:: DNR/DNI INSURANCE COVERAGE / FINANCIAL ISSUES:: Medicare and BCBS CURRENT HOME/COMMUNITY SERVICES/EQUIPMENT:: Meals on Wheels, hearing aid. PRIMARY CARE PHYSICIAN:: POTENTIAL DISCHARGE NEEDS:: Follow up with primary care scheduled prior to discharge. Pt declines any additional services. PATIENT/FAMILY EDUCATION NEEDS:: Discharge education, limitations and follow up plan of care. Pt is unable to hear instruction she should have a person with her during time of discharge instructions, she also would benefit from white board communication, or pen and paper. ANTICIPATED BARRIERS TO DISCHARGE:: Pt is unwilling to accept additional services at home, she needs care for multiple areas of skin breakdown. TRANSPORTATION:: Via private car with spouse at time of discharge. PLAN:: Madison is currently receving IV antibioitcs, her blood cultures are pending. She will be discharged home when medically ready. CM to continue to provide support discharge planning and disposition.
[2019-01-10 15:53] VITALS: BP 160/82; PULSE 68; RESP 18; TEMP 36.6; O2SAT 95
[2019-01-10 19:40] VITALS: BP 143/70; PULSE 70; RESP 18; TEMP 37.1; O2SAT 94
[2019-01-10] MEDS: rOPINIRole 1 MG TAB 3 MG PO (22:13)
[2019-01-11] MEDS: Normal Saline Flush 10 ML SYR IVP ×3 (03:44→21:20)
[2019-01-11 04:06] VITALS: BP 169/90; PULSE 67; RESP 17; TEMP 36.1; O2SAT 95
[2019-01-11] MEDS: Levothyroxine 50 MCG TAB PO (06:39)
[2019-01-11 07:25] VITALS: BP 159/96; PULSE 69; RESP 18; TEMP 36.8; O2SAT 97
[2019-01-11] MEDS: FLUoxetine 20 MG CAP 40 MG PO (08:07)
[2019-01-11] MEDS: Nystatin POWDER 60 GM JAR TP ×3 (08:07→21:39)
[2019-01-11] MEDS: Apixaban 5 MG TAB PO ×2 (08:07→21:20)
[2019-01-11] MEDS: Magnesium Oxide 400 MG TAB PO ×2 (08:07→11:09)
[2019-01-11] MEDS: Atorvastatin 40 MG TAB PO (08:08)
[2019-01-11] MEDS: Furosemide 40 MG TAB 80 MG PO (08:08)
[2019-01-11] MEDS: Losartan 50 MG TAB 100 MG PO (08:08)
[2019-01-11] MEDS: Spironolactone 25 MG TAB PO ×2 (08:08→15:18)
[2019-01-11] MEDS: Metoprolol CR 100 MG TABCR 200 MG PO (08:08)
[2019-01-11 08:50] LABS: Magnesium 1.5 mg/dL (1.8-2.4)
[2019-01-11] MEDS: Insulin REGULAR-Human 100 UNITS/ML UNIT 15 UNITS SC ×3 (09:44→16:39)
[2019-01-11] MEDS: Insulin NPH-Human 300 UNITS/3 ML PEN 30 UNIT SC ×2 (10:07→21:39)
--- NOTE | 2019-01-11 10:30 | PT.INIE ---
Date of service: 01/11/19 Time of Service: 10:30 PT Notes Inpatient Physical Therapy Evaluation Date: [] 01/11/2019 Referring Doctor: Jazlyn Conde NP PT Orders: PT CONSULT: Generalized weakness and deconditioning, ambulate with walker Precautions: Fall risk Patient Profile/Admitting Diagnosis: A 68-year-old female recently admitted with breast cellulitis and diabetes. PMHX: Hypothyroidism, A. fib, hypertension, and chronic venous stasis, status post left total hip replacement multiple years ago Social History/Home Situation: , lives in a single floor home with a ramp entering the home. Current Functional Limitations: Independent with her ADLs and moving about within her home. She does not drive, but she goes grocery shopping and uses a motorized cart. Her personal hygiene consist of sponge baths because of a faulty bathtub, etc. Equipment Owned/DME: 4 wheeled walker with a seat Subjective: Pleasant woman who is hard of hearing and anxious to return home Objective: [] General Observation: Cooperative, no abnormal pain behavior noted Mental Status: Alert and oriented x3 Pain: No complaints of pain offered Vital Signs: Resting pulse is 60 bpm and O2 sat is 98% and following ambulation pulse is 68 bpm and O2 sat is 94% ROM: Upper Extremity: Her active right shoulder motion is limited to 100 degrees and when attempting to reach behind her back she is able to place her right hand on her right buttocks. Her active left shoulder motion is 120 degrees. She is good functional range of her elbow, forearm and wrist Lower Extremity: She has good functional pain-free range of motion of her hips, knees. Strength: Has full motor control throughout and her strength is generally rated -5/5 other than her shoulders that -4/5 Sensation: Intact to light touch and proprioception Bed Mobility/Transfers: Independent with assuming the supine to sitting to standing positions with minimal effort. Gait: Ambulate with a wheeled walker for over 100 feet with mild contact guarding and stable gait. Balance: [] Static Sitting: Good Dynamic Sitting: Good Static Standing: Good Dynamic Standing: Fair to good Special Tests: Mobility Limitations Standardized Measure [facility] AM-PAC 6 clicks Basic Mobility Inpatient Short Form: Raw Score: 19 standardized Score: 45.44 CMS Score: 41.77 CMS Modifier: CK Informed Consent/Education: Patient instructed in purpose of PT consult and plan of care. Assessment: Patient is a 68 year old female referred to physical therapy services with the diagnosis of breast cellulitis and diabetes. Patient presents with clinical signs and symptoms consistent with diagnosis, as demonstrated by the following impairment level findings: Generalized weakness. Impairments are contributing to the following functional limitations: AMPAC score. Patient is assessed as a Moderate 27811 complexity based on the following: History: See comorbidities and social history Examination: See above for functional mutations impairments Presentation: Evolving Decision Making: Moderate complexity based on her clinical findings Goals: Goals X1 week Ambulating with a wheeled walker independently for greater than 300 feet. Increase strength throughout Plan of Care/Treatment Plan: 1-2x/day, 7 days/week x 1 week. Plan of care has been reviewed with the INSULATION POWER UNIT TENDER providing the service under Physical Therapy direction. Initiate Physical Therapy intervention for strengthening, bed mobility, transfers, gait, stairs, balance training, use of assistive device. DISCHARGE RECOMMENDATIONS: Home TREATMENT CODE/TIME: 9716 2/45 minutes
--- NOTE | 2019-01-11 10:43 | IN_ITS ---
Date of service: 01/11/19 Time of Service: 10:30 PT Notes Inpatient Physical Therapy Evaluation Date: [] 01/11/2019 Referring Doctor: Jazlyn Conde NP PT Orders: PT CONSULT: Generalized weakness and deconditioning, ambulate with walker Precautions: Fall risk Patient Profile/Admitting Diagnosis: A 68-year-old female recently admitted with breast cellulitis and diabetes. PMHX: Hypothyroidism, A. fib, hypertension, and chronic venous stasis, status post left total hip replacement multiple years ago Social History/Home Situation: , lives in a single floor home with a ramp entering the home. Current Functional Limitations: Independent with her ADLs and moving about within her home. She does not drive, but she goes grocery shopping and uses a motorized cart. Her personal hygiene consist of sponge baths because of a faulty bathtub, etc. Equipment Owned/DME: 4 wheeled walker with a seat Subjective: Pleasant woman who is hard of hearing and anxious to return home Objective: [] General Observation: Cooperative, no abnormal pain behavior noted Mental Status: Alert and oriented x3 Pain: No complaints of pain offered Vital Signs: Resting pulse is 60 bpm and O2 sat is 98% and following ambulation pulse is 68 bpm and O2 sat is 94% ROM: Upper Extremity: Her active right shoulder motion is limited to 100 degrees and when attempting to reach behind her back she is able to place her right hand on her right buttocks. Her active left shoulder motion is 120 degrees. She is good functional range of her elbow, forearm and wrist Lower Extremity: She has good functional pain-free range of motion of her hips, knees. Strength: Has full motor control throughout and her strength is generally rated -5/5 other than her shoulders that -4/5 Sensation: Intact to light touch and proprioception Bed Mobility/Transfers: Independent with assuming the supine to sitting to standing positions with minimal effort. Gait: Ambulate with a wheeled walker for over 100 feet with mild contact guarding and stable gait. Balance: [] Static Sitting: Good Dynamic Sitting: Good Static Standing: Good Dynamic Standing: Fair to good Special Tests: Mobility Limitations Standardized Measure [facility] AM-PAC 6 clicks Basic Mobility Inpatient Short Form: Raw Score: 19 standardized Score: 45.44 CMS Score: 41.77 CMS Modifier: CK Informed Consent/Education: Patient instructed in purpose of PT consult and plan of care. Assessment: Patient is a 68 year old female referred to physical therapy services with the diagnosis of breast cellulitis and diabetes. Patient presents with clinical signs and symptoms consistent with diagnosis, as demonstrated by the following impairment level findings: Generalized weakness. Impairments are contributing to the following functional limitations: AMPAC score. Patient is assessed as a Moderate 49223 complexity based on the following: History: See comorbidities and social history Examination: See above for functional mutations impairments Presentation: Evolving Decision Making: Moderate complexity based on her clinical findings Goals: Goals X1 week Ambulating with a wheeled walker independently for greater than 300 feet. Increase strength throughout Plan of Care/Treatment Plan: 1-2x/day, 7 days/week x 1 week. Plan of care has been reviewed with the LASER ENGRAVER providing the service under Physical Therapy direction. Initiate Physical Therapy intervention for strengthening, bed mobility, transfers, gait, stairs, balance training, use of assistive device. DISCHARGE RECOMMENDATIONS: Home TREATMENT CODE/TIME: 9716 2/45 minutes
[2019-01-11 11:35] VITALS: BP 153/86; PULSE 60; RESP 18; TEMP 36.9; O2SAT 97
--- NOTE | 2019-01-11 11:42 | PGE_ITS ---
Date of Service Date of service: 01/11/19 Time of Service: 11:40 Assessment and Plan (1) Cellulitis of breast: Current visit: Yes Status: Acute likely a complication of fungal dermatitis. Blood cultures have yielded no growth to date. Skin culture showing normal jasmin with gram positive jasmin. Continue to follow cultures. Continue IV Ancef and antifungal nystatin powder. (2) Fungal dermatitis: Current visit: Yes Status: Acute Continue to treat with nystatin. (3) Uncontrolled diabetes mellitus: Current visit: Yes Status: Acute Was hypoglycemic overnight as low as 60s and 70s, symptomatic. Decrease NPH to 30 units (approximately 1/2 home dose), continue regular insulin per home regimen, continue sliding scale. Continue carb consistent diet. Continue to monitor blood glucose. (4) Pulmonary hypertension: Current visit: No Status: Chronic Due to KELLEY - noncompliant with CPAP. Refuses CPAP. (5) Hypothyroidism: Current visit: No Status: Chronic TSH within range. Continue levothyroxine at current dose. (6) Atrial fibrillation: Current visit: No Status: Chronic Rate controlled. Continue home therapy with apixaban and metoprolol. (7) DVT prophylaxis: Current visit: Yes Status: Acute Therapeutic on apixaban. (8) Discharge planning issues: Current visit: Yes Status: Acute She is a DNR/DNI. She would likely benefit from rehab at a [facility] prior to returning home as she does not appear to be effectively caring for herself at home. Care management reports that she is currently refusing rehab and/or services. Continue to offer. Continue physical therapy and Occupational Therapy. This case was discussed with Dr. Mack who is in agreement. Subjective Interval history since last seen: Mrs. Hoyos reports that she is overall doing well. The pain under her breasts has improved, the skin under her breasts remains itchy. She reports that under her left breast is still draining, but draining less today. She denies any other concerns, no chest pain/pressure, palpitations, shortness of breath, coughing, wheezing, she is eating and drinking and tolerating her diet, no nausea, vomiting or diarrhea. No dysuria or hematuria. Her last bowel movement was yesterday. She reports ambulating in the [place] with PT. Exam Narrative Exam Narrative: General: very pleasant middle-aged obese female, appears older than her stated age, very [place], A&OX3, sitting up in the chair. Neuro: [place], A&OX3, no focal neurological deficits Skin: Skin folds under Bilateral breasts are very tender and erythematous with excoriations, purulent drainage under left breast. Erythema extends over bilateral breasts. Erythema appears to be receding from ink border. HEENT: Normocephalic, atraumatic, very hard of hearing, extraocular movements intact, pupils equal and round, mucous membranes moist. Neck: Supple, no JVD. Heart: Heart sounds irregularly irregular, no murmur appreciated. Lungs: Respirations even and unlabored, lung sounds clear bilaterally. GI: Normal active bowel sounds x4 quadrants, abdomen is large, soft, nontender on palpation, nondistended Extremities: Bilateral lower extremities with edema, left greater than right, left has 2+ pitting edema. 2+ pedal pulses, chronic venous stasis changes to bilateral lower extremities. Right foot with only 3 remaining toes due to previ ous amputations. Objective Objective Clinical Data: Abnormal lab results 01/11/19 Range/Units 08:20 Magnesium 1.5 L (1.8-2.4) mg/dL Vital Signs Temperature 36.8 C 01/11/19 07:25 Temperature Source Tympanic 01/11/19 07:25 Pulse 69 01/11/19 07:25 Pulse Rhythm Regular 01/11/19 08:17 Respiratory Rate 18 01/11/19 07:25 Respiratory Effort Non-Labored 01/11/19 08:17 Respiratory Depth Normal 01/11/19 08:17 Respiratory Pattern Normal 01/11/19 08:17 Blood Pressure 159/96 H 01/11/19 07:25 Blood Pressure Position Sitting 01/09/19 11:15 Pulse Oximetry 97 01/11/19 07:25 Oxygen Delivery Method Room Air 01/11/19 07:25 Oxygen Flow Rate 0 01/11/19 07:25 Pain Level 0 01/11/19 07:25 Comment 01/09/19 23:15 Intake & Output 01/10/19 01/10/19 01/11/19 11:59 23:59 11:59 Intake Total 1567.5 / 3147.5 1580 / 3147.5 530 / 530 Output Total 450 / 650 200 / 650 300 / 300 Balance 1117.5 / 2497.5 1380 / 2497.5 230 / 230 Weight 94.5 kg 94.4 kg Intake: IV 917.5 / 2016.5 1100 / 2016.5 50 / 50 Oral 650 / 1130 480 / 1130 480 / 480 Output: Urine 450 / 650 200 / 650 300 / 300 Other: Urine Color Pale Yellow Pale Yellow Urine Appearance Clear Clear Clear Urine Odor Normal Normal Comment pt was very Incontinent patient voided 200 in toilet and was also incontinent of large amount of urine Large puddle under her chair Stool Size Small Stool Characteristics Brown Voiding Methods Toilet Toilet Incontinent Diaper Incontinent Laboratory Results WBC 8.59 k/cumm (4.4-10.8) 01/10/19 07:00 RBC 4.58 m/cumm (4.00-5.20) 01/10/19 07:00 Hgb 14.3 g/dL (12.0-15.5) 01/10/19 07:00 Hct 42.2 % (36.0-46.0) 01/10/19 07:00 MCV 92.1 fL (80-95) 01/10/19 07:00 MCH 31.2 pg (27.0-33.0) 01/10/19 07:00 MCHC 33.9 g/dL (32.0-36.0) 01/10/19 07:00 RDW 13.5 % (11.7-14.6) 01/10/19 07:00 Plt Count 216 x1000/uL (130-400) 01/10/19 07:00 MPV 10.8 fL (8.0-11.0) 01/10/19 07:00 Immature Gran % 0.2 01/10/19 07:00 Neutrophils % 64.6 01/10/19 07:00 Lymphocytes % 24.6 01/10/19 07:00 Monocytes % 7.9 01/10/19 07:00 Eosinophils % 2.4 01/10/19 07:00 Basophils % 0.3 01/10/19 07:00 Absolute Neutrophils 5.54 k/cumm (1.2-6.7) 01/10/19 07:00 Absolute Lymphocytes 2.11 k/cumm (1.2-3.4) 01/10/19 07:00 Absolute Monocytes 0.68 k/cumm (0.11-0.7) 01/10/19 07:00 Absolute Eosinophils 0.21 k/cumm (0.0-0.7) 01/10/19 07:00 Absolute Basophils 0.03 k/cumm (0.0-0.2) 01/10/19 07:00 Sodium 140 mmol/L (136-145) 01/10/19 07:00 Potassium 3.6 mmol/L (3.5-5.1) 01/10/19 07:00 Chloride 105 mmol/L (98-107) 01/10/19 07:00 Carbon Dioxide 24.8 mmol/L (21.0-32.0) 01/10/19 07:00 Anion Gap 10.2 mmol/L (3-11) 01/10/19 07:00 BUN 11 mg/dL (7-18) D 01/10/19 07:00 Creatinine 0.58 mg/dL (0.55-1.02) 01/10/19 07:00 Estimated GFR/1.73 m2 >= 60.00 (mL/min/1.73m2) 01/10/19 07:00 Glucose 242 mg/dL (70-100) H D 01/10/19 07:00 Lactate 1.1 mmol/l (0.6-1.4) 01/10/19 07:00 Calcium 8.0 mg/dL (8.5-10.1) L 01/10/19 07:00 Magnesium 1.5 mg/dL (1.8-2.4) L 01/11/19 08:20 Total Bilirubin 1.1 mg/dL (0.2-1.0) H 01/09/19 11:34 AST 16 U/L (15-37) 01/09/19 11:34 ALT 18 U/L (12-78) 01/09/19 11:34 Alkaline Phosphatase 166 U/L (46-116) H 01/09/19 11:34 Total Protein 7.0 g/dL (6.4-8.2) 01/09/19 11:34 Albumin 2.8 g/dL (3.4-5.0) L 01/09/19 11:34 TSH 2.98 uIU/mL (0.358-3.74) 01/10/19 07:00
[2019-01-11] MEDS: Insulin Aspart 300 UNITS/3 ML PEN SC (11:58)
[2019-01-11 15:24] VITALS: BP 164/71; PULSE 52; RESP 18; TEMP 36.9; O2SAT 96
--- NOTE | 2019-01-11 15:25 | PDOC.CMPRO ---
- If Service Date Differs Date of service: 01/11/19 Time of Service: 15:25 Care Management Progress Note S/O:Madison continues to be inpatient no change in status today. was here to visit today, she is considering home health services at this time. She would benefit from services at home to care for her skin. A:Madison is a 68 year old female admitted with cellulitis of the breast and multiple areas of skin breakdown. P:Madison is currently receiving IV antibiotics, her blood cultures are pending. She will be discharged home when medically ready. Anticipate home health referral nursing, PT, OT and TRANSMITTER ENGINEER. CM to continue to provide support discharge planning and disposition.
--- NOTE | 2019-01-11 15:28 | CMPROGNOTE_ITS ---
- If Service Date Differs Date of service: 01/11/19 Time of Service: 15:25 Care Management Progress Note S/O:Madison continues to be inpatient no change in status today. was here to visit today, she is considering home health services at this time. She would benefit from services at home to care for her skin. A:Madison is a 68 year old female admitted with cellulitis of the breast and multiple areas of skin breakdown. P:Madison is currently receiving IV antibiotics, her blood cultures are pending. She will be discharged home when medically ready. Anticipate home health referral nursing, PT, OT and HAND ALTERATIONS TAILOR. CM to continue to provide support discharge planning and disposition.
[2019-01-11 19:44] VITALS: BP 144/70; PULSE 68; RESP 16; TEMP 36.7; O2SAT 94
[2019-01-11] MEDS: Magnesium Oxide 400 MG TAB 800 MG PO (21:19)
[2019-01-11] MEDS: rOPINIRole 1 MG TAB 3 MG PO (21:19)
[2019-01-11 23:39] VITALS: BP 143/72; PULSE 61; RESP 16; O2SAT 98
[2019-01-12] MEDS: Normal Saline Flush 10 ML SYR IVP ×4 (04:03→22:17)
[2019-01-12 04:04] VITALS: BP 169/78; PULSE 65; RESP 16; TEMP 36.7; O2SAT 94
[2019-01-12] MEDS: Levothyroxine 50 MCG TAB PO (06:05)
[2019-01-12 07:16] LABS: Magnesium 1.4 mg/dL (1.8-2.4)
[2019-01-12 07:24] VITALS: BP 169/83; PULSE 56; RESP 17; TEMP 36.6; O2SAT 96
[2019-01-12 08:10] LABS: Anion Gap 10.2 mmol/L (3-11); BUN 15 mg/dL (7-18); CO2 25.8 mmol/L (21.0-32.0); Calcium 8.9 mg/dL (8.5-10.1); Chloride 102 mmol/L (98-107); Glucose 218 mg/dL (70-100); Potassium 3.7 mmol/L (3.5-5.1); Sodium 138 mmol/L (136-145)
[2019-01-12] MEDS: Insulin Aspart 300 UNITS/3 ML PEN SC ×3 (08:26→17:02)
[2019-01-12] MEDS: Insulin NPH-Human 300 UNITS/3 ML PEN 30 UNIT SC (08:28)
[2019-01-12] MEDS: Insulin REGULAR-Human 100 UNITS/ML UNIT 15 UNITS SC ×3 (08:37→17:04)
[2019-01-12] MEDS: Furosemide 40 MG TAB 80 MG PO (08:40)
[2019-01-12] MEDS: Apixaban 5 MG TAB PO ×2 (08:40→20:13)
[2019-01-12] MEDS: FLUoxetine 20 MG CAP 40 MG PO (08:40)
[2019-01-12] MEDS: Atorvastatin 40 MG TAB PO (08:40)
[2019-01-12] MEDS: Losartan 50 MG TAB 100 MG PO (08:41)
[2019-01-12] MEDS: Metoprolol CR 100 MG TABCR 200 MG PO (08:41)
[2019-01-12] MEDS: Spironolactone 25 MG TAB PO ×2 (08:41→15:57)
[2019-01-12] MEDS: Magnesium Oxide 400 MG TAB 800 MG PO ×2 (08:42→20:13)
--- NOTE | 2019-01-12 10:02 | PDOC.CMPRO ---
Care Management Progress Note S/O-Madison continues to require inpatient LOC. She agrees that HH services might be helpful. Also discussed with her possibility of SB1 to manage her skin problems and IV Abx as necessary. She is receptive to this if necessary. A-68 yo woman admitted with cellulitis of breast with multiple areas of skin breakdown. P-d/c home as per MD when medically appropriate. Anticipate referral to HH and [id number] SB1 short term before d/c home. CM will continue to coordinate plans.
[2019-01-12] MEDS: MAGNESIUM SULFATE 4 GM/100 ML BAG IVPB (10:15)
[2019-01-12] MEDS: Normal Saline 500 ML IV (10:15)
[2019-01-12] MEDS: Nystatin POWDER 60 GM JAR TP ×3 (10:49→20:19)
[2019-01-12 11:41] VITALS: BP 138/72; PULSE 63; RESP 18; TEMP 36.6; O2SAT 96
--- NOTE | 2019-01-12 13:07 | W.PM.PROGNOT ---
Date of Service Date of service: 01/12/19 Time of Service: 13:07 Assessment and Plan (1) Cellulitis of breast: Current visit: Yes Status: Acute Likely a complication of fungal dermatitis. Will need follow up to ensure that the cellulitis clears. Blood cultures have yielded no growth to date. Skin culture showing normal jasmin with gram positive jasmin and gram negative rods. Continue to follow cultures. With purulent drainage and minimal improvement- add IV vancomycin. Continue IV Ancef and antifungal nystatin powder. (2) Fungal dermatitis: Current visit: Yes Status: Acute Continue to treat with nystatin. (3) Uncontrolled diabetes mellitus: Current visit: Yes Status: Acute Was hypoglycemic agian overnight as low as 80, improved from the hypoglycemia to the 60s and 70s the night prior. Further Decrease NPH to 20 units BID, continue regular insulin per home regimen, continue sliding scale, change from resistant to moderate protocol. Continue carb consistent diet. Continue to monitor blood glucose. (4) Pulmonary hypertension: Current visit: No Status: Chronic Due to KELLEY - noncompliant with CPAP. Refuses CPAP. (5) Hypothyroidism: Current visit: No Status: Chronic TSH within range. Continue levothyroxine at current dose. (6) Atrial fibrillation: Current visit: No Status: Chronic Rate controlled. Continue home therapy with apixaban and metoprolol. (7) DVT prophylaxis: Current visit: Yes Status: Acute Therapeutic on apixaban. (8) Discharge planning issues: Current visit: Yes Status: Acute She is a DNR/DNI. She would likely benefit from rehab at a [facility] facility prior to returning home as she does not appear to be effectively caring for herself at home. Care management reports that she is currently refusing rehab and/or services. Continue to offer. Continue physical therapy and Occupational Therapy. This case was discussed with Dr. Mack who is in agreement. Subjective Interval history since last seen: Mrs. Hoyos continues to report that she is feeling well overall. The pain under her breasts is improving, she still has pain with manipulation of her breasts. She feels that the rash under the right breast is clearing. She continues to report thick drainage from under the left breast. Nursing reports purulent drainage under the left breast. She continues to deny any other concerns such as chest pain/pressure, palpitations, shortness of breath, coughing, wheezing, she is eating and drinking and tolerating her diet, no nausea, vomiting or diarrhea. No dysuria or hematuria. She reports that her lower extremity edema looks good right now. She reports that she always has the redness on her lower legs bilaterally. Nursing reports that she had a low blood glucose last evening, the lowest value was 80, improved to 98 with a snack. Exam Narrative Exam Narrative: General: very pleasant middle-aged obese female, appears older than her stated age, A&OX3, sitting up in the chair with legs dependent. Neuro: [place], A&OX3, no focal neurological deficits Skin: Skin folds under Bilateral breasts are very tender to touch with bilateral erythema and excoriations, purulent drainage under left breast. Erythema extends over bilateral breasts, more intense on left side, extends nearly to axilla on the left. HEENT: Normocephalic, atraumatic, hearing aids bilaterally, extraocular movements intact, pupils equal and round, mucous membranes moist. Neck: Supple, no JVD. Heart: Heart sounds irregularly irregular, no murmur appreciated. Lungs: Respirations even and unlabored, lung sounds clear bilaterally. GI: Normal active bowel sounds x4 quadrants, abdomen is large, soft, nontender on palpation, nondistended Extremities: Bilateral lower extremities with edema, left greater than right, 1-2+ pitting edema. 2+ pedal pulses, chronic venous stasis changes to bilateral lower extremities. 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 Objective Objective Clinical Data: Abnormal lab results 01/12/19 Range/Units 06:10 Glucose 218 H (70-100) mg/dL Magnesium 1.4 L (1.8-2.4) mg/dL Vital Signs Temperature 36.6 C 01/12/19 07:24 Temperature Source Tympanic 01/12/19 07:24 Pulse 56 L 01/12/19 07:24 Pulse Rhythm Irregular 01/12/19 07:45 Respiratory Rate 17 01/12/19 07:24 Respiratory Effort 01/12/19 07:45 Respiratory Depth Normal 01/12/19 07:45 Respiratory Pattern Normal 01/12/19 07:45 Blood Pressure 169/83 H 01/12/19 07:24 Blood Pressure Position Sitting 01/09/19 11:15 Pulse Oximetry 96 01/12/19 07:24 Oxygen Delivery Method Room Air 01/12/19 07:24 Oxygen Flow Rate 0 01/12/19 07:24 Pain Level 0 01/12/19 04:04 Comment 01/09/19 23:15 Intake & Output 01/11/19 01/12/19 01/12/19 23:59 11:59 23:59 Intake Total 590 / 1120 550 / 550 Output Total 900 / 1200 Balance -310 / -80 550 / 550 Intake: IV 110 / 160 70 / 70 Oral 480 / 960 480 / 480 Output: Urine 900 / 1200 Other: Urine Color Yellow Yellow Urine Appearance Clear Clear Urine Odor Normal Comment Mixed with stool. Stool Size Moderate Stool Characteristics Soft Formed Brown Voiding Methods Toilet Bedside Commode Diaper Incontinent Laboratory Results WBC 8.59 k/cumm (4.4-10.8) 01/10/19 07:00 RBC 4.58 m/cumm (4.00-5.20) 01/10/19 07:00 Hgb 14.3 g/dL (12.0-15.5) 01/10/19 07:00 Hct 42.2 % (36.0-46.0) 01/10/19 07:00 MCV 92.1 fL (80-95) 01/10/19 07:00 MCH 31.2 pg (27.0-33.0) 01/10/19 07:00 MCHC 33.9 g/dL (32.0-36.0) 01/10/19 07:00 RDW 13.5 % (11.7-14.6) 01/10/19 07:00 Plt Count 216 x1000/uL (130-400) 01/10/19 07:00 MPV 10.8 fL (8.0-11.0) 01/10/19 07:00 Immature Gran % 0.2 01/10/19 07:00 Neutrophils % 64.6 01/10/19 07:00 Lymphocytes % 24.6 01/10/19 07:00 Monocytes % 7.9 01/10/19 07:00 Eosinophils % 2.4 01/10/19 07:00 Basophils % 0.3 01/10/19 07:00 Absolute Neutrophils 5.54 k/cumm (1.2-6.7) 01/10/19 07:00 Absolute Lymphocytes 2.11 k/cumm (1.2-3.4) 01/10/19 07:00 Absolute Monocytes 0.68 k/cumm (0.11-0.7) 01/10/19 07:00 Absolute Eosinophils 0.21 k/cumm (0.0-0.7) 01/10/19 07:00 Absolute Basophils 0.03 k/cumm (0.0-0.2) 01/10/19 07:00 Sodium 138 mmol/L (136-145) 01/12/19 06:10 Potassium 3.7 mmol/L (3.5-5.1) 01/12/19 06:10 Chloride 102 mmol/L (98-107) 01/12/19 06:10 Carbon Dioxide 25.8 mmol/L (21.0-32.0) 01/12/19 06:10 Anion Gap 10.2 mmol/L (3-11) 01/12/19 06:10 BUN 15 mg/dL (7-18) 01/12/19 06:10 Creatinine 0.70 mg/dL (0.55-1.02) 01/12/19 06:10 Estimated GFR/1.73 m2 >= 60.00 (mL/min/1.73m2) 01/12/19 06:10 Glucose 218 mg/dL (70-100) H 01/12/19 06:10 Lactate 1.1 mmol/l (0.6-1.4) 01/10/19 07:00 Calcium 8.9 mg/dL (8.5-10.1) 01/12/19 06:10 Magnesium 1.4 mg/dL (1.8-2.4) L 01/12/19 06:10 Total Bilirubin 1.1 mg/dL (0.2-1.0) H 01/09/19 11:34 AST 16 U/L (15-37) 01/09/19 11:34 ALT 18 U/L (12-78) 01/09/19 11:34 Alkaline Phosphatase 166 U/L (46-116) H 01/09/19 11:34 Total Protein 7.0 g/dL (6.4-8.2) 01/09/19 11:34 Albumin 2.8 g/dL (3.4-5.0) L 01/09/19 11:34 TSH 2.98 uIU/mL (0.358-3.74) 01/10/19 07:00
--- NOTE | 2019-01-12 14:37 | CMPROGNOTE_ITS ---
Care Management Progress Note S/O-Madison continues to require inpatient LOC. She agrees that HH services might be helpful. Also discussed with her possibility of SB1 to manage her skin problems and IV Abx as necessary. She is receptive to this if necessary. A-68 yo woman admitted with cellulitis of breast with multiple areas of skin breakdown. P-d/c home as per MD when medically appropriate. Anticipate referral to HH and [id number] SB1 short term before d/c home. CM will continue to coordinate plans.
--- NOTE | 2019-01-12 15:24 | PT.INTREAT ---
Date of service: 01/12/19 Time of Service: 15:24 PT Notes Inpatient Physical Therapy Treatment Note [facility] Date: 01/12/19 PRECAUTIONS: Fall SUBJECTIVE: Madison states that she feels hot this afternoon, but otherwise feels fine. OBJECTIVE: PAIN: No c/o pain BED MOBILITY/TRANSFERS Sit-stand: S Stand-sit: S GAIT Assistive Device: 4WW Weight bearing: Full Assist: S Distance: 200' THEREX: Patient completed a LE strengthening program, in a seated position, as per flow sheet. TOILETING: Patient toileted with supervision for transfers ASSESSMENT: Patient tolerated session without complaint. She was able to tolerate a progression in gait distance with 4WW support and supervision. PLAN: Continue with PT's POC TREATMENT CODE/TIME: 25 minutes; 72513, 11648
[2019-01-12 16:01] VITALS: BP 110/57; PULSE 59; RESP 18; TEMP 36.4; O2SAT 97
[2019-01-12 19:53] VITALS: BP 146/82; PULSE 61; RESP 17; TEMP 37.1; O2SAT 96
[2019-01-12] MEDS: Insulin NPH-Human 300 UNITS/3 ML PEN 20 UNIT SC (20:42)
[2019-01-12] MEDS: rOPINIRole 1 MG TAB 3 MG PO (22:17)
[2019-01-12 23:05] VITALS: BP 142/78; PULSE 53; RESP 18; TEMP 36.6; O2SAT 97
[2019-01-13] VITALS (9 sets, daily range): BP systolic 117–157; BP diastolic 73–84; PULSE 50–67; RESP 16–20; TEMP 36.3–36.6; O2SAT 93–98
[2019-01-13] MEDS: Levothyroxine 50 MCG TAB PO (05:57)
[2019-01-13] MEDS: Normal Saline Flush 10 ML SYR IVP ×3 (05:57→19:42)
--- NOTE | 2019-01-13 06:57 | PT.INTREAT ---
Date of service: 01/12/19 PT Notes Inpatient Physical Therapy Treatment Note [facility] Date: 01/12/2019 PRECAUTIONS: Fall. Standard. SUBJECTIVE: Patient reports that she slept well last night. She continues to complain itchiness on breast undersides bilaterally, albeit significantly decreased today. She denies nausea, dizziness, and vomitting. She reports no chest pain nor headache throughout PT session. She is agreeable to doing room exercises as advised and written on white board in room. She states that she has had leg edema for a long time now. OBJECTIVE: Patient seen sitting on chair. Brawny edema noted on bilateral legs. PAIN: 0/10 BED MOBILITY/TRANSFERS Sit-stand: Supervision Stand-sit: Supervision Bed-Chair: Supervision Chair-bed: Supervision GAIT Assistive Device: Rollator walker Weight bearing: FWB Assist: SBA Distance: 150 feet Deviation: Decreased step height and step length, decreased gait velocity THEREX: Patient completed standing level exercises to increase step height, minimize edema to bilateral legs, and maintain balance and flexibility as indicated in exercise flow sheet without undue fatigue, significant increase in pain, increase in dyspnea. ASSESSMENT: Patient demonstrates good tolerance to physical therapy session with observed improvement in terms of pain level, activity tolerance, self-efficacy/confidence, and participation level. PLAN: Patient to progress with mobility level, functional performance, and knowledge of HEP to achieve previously established goals. TREATMENT CODE/TIME: 57817 x 15 minutes, 34803 x 13 minutes beginning at 9:27 am.
--- NOTE | 2019-01-13 07:00 | PTTR_ITS ---
Date of service: 01/12/19 PT Notes Inpatient Physical Therapy Treatment Note [facility] Date: 01/12/2019 PRECAUTIONS: Fall. Standard. SUBJECTIVE: Patient reports that she slept well last night. She continues to complain itchiness on breast undersides bilaterally, albeit significantly decreased today. She denies nausea, dizziness, and vomitting. She reports no chest pain nor headache throughout PT session. She is agreeable to doing room exercises as advised and written on white board in room. She states that she has had leg edema for a long time now. OBJECTIVE: Patient seen sitting on chair. Brawny edema noted on bilateral legs. PAIN: 0/10 BED MOBILITY/TRANSFERS Sit-stand: Supervision Stand-sit: Supervision Bed-Chair: Supervision Chair-bed: Supervision GAIT Assistive Device: Rollator walker Weight bearing: FWB Assist: SBA Distance: 150 feet Deviation: Decreased step height and step length, decreased gait velocity THEREX: Patient completed standing level exercises to increase step height, minimize edema to bilateral legs, and maintain balance and flexibility as indicated in exercise flow sheet without undue fatigue, significant increase in pain, increase in dyspnea. ASSESSMENT: Patient demonstrates good tolerance to physical therapy session with observed improvement in terms of pain level, activity tolerance, self-efficacy/confidence, and participation level. PLAN: Patient to progress with mobility level, functional performance, and knowledge of HEP to achieve previously established goals. TREATMENT CODE/TIME: 02114 x 15 minutes, 68066 x 13 minutes beginning at 9:27 am.
[2019-01-13 07:31] LABS: HCT 45.9 % (36.0-46.0); HGB 15.3 g/dL (12.0-15.5); Mean Corp. HGB Concentration 33.3 g/dL (32.0-36.0); Mean Corpuscular Hemoglobin 30.9 pg (27.0-33.0); Mean Corpuscular Volume 92.7 fL (80-95); Platelet Count 315 x1000/uL (130-400); RBC 4.95 m/cumm (4.00-5.20); RBC Distribution Width 13.5 % (11.7-14.6); White Blood Cell Count 8.67 k/cumm (4.4-10.8)
[2019-01-13 07:49] LABS: BUN 22 mg/dL (7-18); C-Reactive Protein 1.23 mg/dL (0.0-0.3); Calcium 8.9 mg/dL (8.5-10.1); Chloride 99 mmol/L (98-107); Glucose 306 mg/dL (70-100); Magnesium 1.7 mg/dL (1.8-2.4); Potassium 4.3 mmol/L (3.5-5.1); Sodium 135 mmol/L (136-145)
[2019-01-13 08:13] LABS: ESR 58 MM/HR (0-30)
[2019-01-13] MEDS: Magnesium Oxide 400 MG TAB 800 MG PO ×2 (08:13→19:42)
[2019-01-13] MEDS: FLUoxetine 20 MG CAP 40 MG PO (08:13)
[2019-01-13] MEDS: Furosemide 40 MG TAB 80 MG PO (08:14)
[2019-01-13] MEDS: Atorvastatin 40 MG TAB PO (08:14)
[2019-01-13] MEDS: Spironolactone 25 MG TAB PO ×2 (08:14→15:48)
[2019-01-13] MEDS: Apixaban 5 MG TAB PO ×2 (08:15→19:44)
[2019-01-13] MEDS: Nystatin POWDER 60 GM JAR TP ×3 (08:15→19:45)
[2019-01-13] MEDS: Losartan 50 MG TAB 100 MG PO (08:15)
[2019-01-13] MEDS: Insulin REGULAR-Human 100 UNITS/ML UNIT 15 UNITS SC ×3 (08:17→17:07)
[2019-01-13] MEDS: Insulin Aspart 300 UNITS/3 ML PEN SC ×3 (08:17→17:07)
[2019-01-13] MEDS: Insulin NPH-Human 300 UNITS/3 ML PEN 20 UNIT SC ×2 (08:19→19:44)
--- NOTE | 2019-01-13 10:02 | PTTR_ITS ---
Date of service: 01/13/19 Time of Service: 10:00 PT Notes 01/13/19 SUBJECTIVE: Pt stating no pain. Agreeable to PT treatment. OBJECTIVE: TRANSFERS Sit to stand: S Stand to sit: S GAIT Device: 4WW Weight bearing: Full Assist: S Distance: 200' THEREX: Review hourly exercises that are written on her board in her room. ASSESSMENT: Tolerates PT well without LOB or fatigue noted with gait. PLAN: Continue current POC progressing toward's established goals. Treatment time: Alisha Wiseman, HUMAN RESOURCES BENEFITS SPECIALIST
[2019-01-13] MEDS: MAGNESIUM SULFATE 2 GM/50 ML BAG IVPB (10:52)
[2019-01-13] MEDS: Normal Saline 500 ML IV (10:53)
[2019-01-13] MEDS: Fluconazole 100 MG TAB 400 MG PO (11:40)
--- NOTE | 2019-01-13 12:03 | W.PM.PROGNOT ---
Date of Service Date of service: 01/13/19 Time of Service: 12:03 Assessment and Plan (1) Cellulitis of breast: Start date: 01/13/19 Start time: 12:13 Current visit: Yes Status: Acute Improving. Left breast with erythema and excoriation localized to under breast, right breast without erythema, slight excoriation. Oral diflucan added. Continue to monitor. (2) Fungal dermatitis: Start date: 01/13/19 Start time: 12:40 Current visit: Yes Status: Acute Continue to treat with nystatin and diflucan added. (3) Uncontrolled diabetes mellitus: Start date: 01/13/19 Start time: 12:50 Current visit: Yes Status: Acute 306 by am labs, increased SSI to Resistant, continue to monitor. (4) Pulmonary hypertension: Start date: 01/13/19 Start time: 12:54 Current visit: No Status: Chronic Due to KELLEY - noncompliant with CPAP. Refuses CPAP. (5) Hypothyroidism: Start date: 01/13/19 Start time: 12:54 Current visit: No Status: Chronic TSH within range. Continue levothyroxine at current dose. (6) Atrial fibrillation: Start date: 01/13/19 Start time: 12:54 Current visit: No Status: Chronic Rate controlled. Continue home therapy with apixaban and metoprolol. Checking on dose of metoprolol. 200 mg CR dcd and placed on 50 mg BID (7) DVT prophylaxis: Start date: 01/13/19 Start time: 12:56 Current visit: Yes Status: Acute Therapeutic on apixaban. (8) Discharge planning issues: Start date: 01/13/19 Start time: 12:57 Current visit: Yes Status: Acute She is a DNR/DNI. She would likely benefit from rehab at a care home facility prior to returning home as she does not appear to be effectively caring for herself at home. Care management reports that she is currently refusing rehab and/or services. Continue to offer. Continue physical therapy and Occupational Therapy. Subjective Patient reports: feels better Interval history since last seen: Doing better today. Would like to go home. Diflucan PO ordered for fungal infection. Left Breast if worse than right. Breast exam done, no lumps or swelling felt around breast or lymph nodes. Denies CP, SOB< N/V/D. Exam Narrative Exam Narrative: General: very pleasant middle-aged obese female, appears older than her stated age, A&OX3, sitting up in the chair with legs dependent. Neuro: [place], A&OX3, no focal neurological deficits Skin: Left breast with Erythema more localized to under breast with excoriation, right breast improved; no erythema slight excoration. HEENT: Normocephalic, atraumatic, hearing aids bilaterally, extraocular movements intact, pupils equal and round, mucous membranes moist. Neck: Supple, no JVD. Heart: Heart sounds irregularly irregular, no murmur appreciated. Lungs: Respirations even and unlabored, lung sounds clear bilaterally. GI: Normal active bowel sounds x4 quadrants, abdomen is large, soft, nontender on palpation, nondistended Extremities: Bilateral lower extremities with edema, left greater than right, 1-2+ pitting edema. 2+ pedal pulses, chronic venous stasis changes to bilateral lower extremities. 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 Objective Objective Clinical Data: Abnormal lab results 01/13/19 01/13/19 Range/Units 06:50 06:50 ESR 58 H (0-30) MM/HR Sodium 135 L (136-145) mmol/L BUN 22 H D (7-18) mg/dL Glucose 306 H (70-100) mg/dL Magnesium 1.7 L (1.8-2.4) mg/dL C-Reactive Protein 1.23 H (0.0-0.3) mg/dL Vital Signs Temperature 36.3 C L 01/13/19 11:33 Temperature Source Tympanic 01/13/19 11:33 Pulse 59 L 01/13/19 11:33 Pulse Rhythm Irregular 01/13/19 08:00 Respiratory Rate 18 01/13/19 11:33 Respiratory Effort Non-Labored 01/13/19 08:00 Respiratory Depth Normal 01/13/19 08:00 Respiratory Pattern Normal 01/13/19 08:00 Blood Pressure 117/73 01/13/19 11:33 Blood Pressure Position Sitting 01/09/19 11:15 Pulse Oximetry 95 01/13/19 11:33 Oxygen Delivery Method Room Air 01/13/19 11:33 Oxygen Flow Rate 0 01/13/19 11:33 Pain Level 0 01/12/19 23:05 Comment 01/09/19 23:15 Intake & Output 01/12/19 01/13/19 01/13/19 23:59 11:59 23:59 Intake Total 1290 / 1840 490.246 / 490.246 Output Total 650 / 950 200 / 200 Balance 640 / 890 290.246 / 290.246 Intake: IV 510 / 580 50.246 / 50.246 Oral 780 / 1260 440 / 440 Output: Urine 650 / 950 200 / 200 Other: Urine Color Yellow Yellow Urine Appearance Clear Clear Urine Odor Normal Normal Comment pt was very incontinent but also voided on the commode Missed hat Stool Size Moderate Moderate Stool Characteristics Soft Soft Formed Brown Voiding Methods Toilet Toilet Incontinent Laboratory Results WBC 8.67 k/cumm (4.4-10.8) 01/13/19 06:50 RBC 4.95 m/cumm (4.00-5.20) 01/13/19 06:50 Hgb 15.3 g/dL (12.0-15.5) 01/13/19 06:50 Hct 45.9 % (36.0-46.0) 01/13/19 06:50 MCV 92.7 fL (80-95) 01/13/19 06:50 MCH 30.9 pg (27.0-33.0) 01/13/19 06:50 MCHC 33.3 g/dL (32.0-36.0) 01/13/19 06:50 RDW 13.5 % (11.7-14.6) 01/13/19 06:50 Plt Count 315 x1000/uL (130-400) 01/13/19 06:50 MPV 11.0 fL (8.0-11.0) 01/13/19 06:50 Immature Gran % 0.2 01/10/19 07:00 Neutrophils % 64.6 01/10/19 07:00 Lymphocytes % 24.6 01/10/19 07:00 Monocytes % 7.9 01/10/19 07:00 Eosinophils % 2.4 01/10/19 07:00 Basophils % 0.3 01/10/19 07:00 Absolute Neutrophils 5.54 k/cumm (1.2-6.7) 01/10/19 07:00 Absolute Lymphocytes 2.11 k/cumm (1.2-3.4) 01/10/19 07:00 Absolute Monocytes 0.68 k/cumm (0.11-0.7) 01/10/19 07:00 Absolute Eosinophils 0.21 k/cumm (0.0-0.7) 01/10/19 07:00 Absolute Basophils 0.03 k/cumm (0.0-0.2) 01/10/19 07:00 ESR 58 MM/HR (0-30) H 01/13/19 06:50 Sodium 135 mmol/L (136-145) L 01/13/19 06:50 Potassium 4.3 mmol/L (3.5-5.1) 01/13/19 06:50 Chloride 99 mmol/L (98-107) 01/13/19 06:50 Carbon Dioxide 29.0 mmol/L (21.0-32.0) 01/13/19 06:50 Anion Gap 7.0 mmol/L (3-11) 01/13/19 06:50 BUN 22 mg/dL (7-18) H D 01/13/19 06:50 Creatinine 0.80 mg/dL (0.55-1.02) 01/13/19 06:50 Estimated GFR/1.73 m2 >= 60.00 (mL/min/1.73m2) 01/13/19 06:50 Glucose 306 mg/dL (70-100) H 01/13/19 06:50 Lactate 1.1 mmol/l (0.6-1.4) 01/10/19 07:00 Calcium 8.9 mg/dL (8.5-10.1) 01/13/19 06:50 Magnesium 1.7 mg/dL (1.8-2.4) L 01/13/19 06:50 Total Bilirubin 1.1 mg/dL (0.2-1.0) H 01/09/19 11:34 AST 16 U/L (15-37) 01/09/19 11:34 ALT 18 U/L (12-78) 01/09/19 11:34 Alkaline Phosphatase 166 U/L (46-116) H 01/09/19 11:34 C-Reactive Protein 1.23 mg/dL (0.0-0.3) H 01/13/19 06:50 Total Protein 7.0 g/dL (6.4-8.2) 01/09/19 11:34 Albumin 2.8 g/dL (3.4-5.0) L 01/09/19 11:34 TSH 2.98 uIU/mL (0.358-3.74) 01/10/19 07:00
--- NOTE | 2019-01-13 13:13 | PDOC.CMPRO ---
- If Service Date Differs Date of service: 01/13/19 Time of Service: 13:13 Care Management Progress Note S/O-Madison continues to require inpatient LOC. She agrees to HH services including nursing, PT/OT and wound care. She remains on IV antibioitcs she will be started on a oral antifungal today. She was discussed with possibility of SB1 to manage her skin problems and IV Abx as necessary. She is receptive to this if necessary. A-68 yo woman admitted with cellulitis of breast with multiple areas of skin breakdown. P-d/c home as per MD when medically appropriate. Anticipate referral to HH including nursing, PT, OT and SET UP AND LAY OUT INSPECTOR. SB1 short term before d/c home. CM will continue to coordinate discharge plan.
[2019-01-13 15:18] LABS: Vancomycin, Random 12.4 ug/mL (5.0-10.0)
[2019-01-13] MEDS: rOPINIRole 1 MG TAB 3 MG PO (21:54)
[2019-01-14 04:09] VITALS: BP 142/67; PULSE 61; RESP 16; TEMP 36.6; O2SAT 94
[2019-01-14] MEDS: Levothyroxine 50 MCG TAB PO (05:49)
[2019-01-14 07:24] LABS: Abs Immature Grans 0.05 k/cumm (0.0-0.09); Absolute Basophil Count 0.05 k/cumm (0.0-0.2); Absolute Eosinophil Count 0.21 k/cumm (0.0-0.7); Absolute Lymphocyte Count 2.81 k/cumm (1.2-3.4); Absolute Monocyte Count 0.94 k/cumm (0.11-0.7); Absolute Neutrophil Count 4.55 k/cumm (1.2-6.7); Basophils % 0.6; Eosinophils % 2.4; HCT 46.9 % (36.0-46.0); HGB 15.8 g/dL (12.0-15.5); Immature Grans % 0.6; Lymphocytes % 32.6; Mean Corp. HGB Concentration 33.7 g/dL (32.0-36.0); Monocytes % 10.9; Neutrophils % 52.9; Platelet Count 307 x1000/uL (130-400); RBC Distribution Width 13.3 % (11.7-14.6); White Blood Cell Count 8.61 k/cumm (4.4-10.8)
[2019-01-14 07:39] LABS: Anion Gap 9.6 mmol/L (3-11); BUN 21 mg/dL (7-18); CO2 27.4 mmol/L (21.0-32.0); CREATININE 0.81 mg/dL (0.55-1.02); Calcium 8.9 mg/dL (8.5-10.1); Chloride 98 mmol/L (98-107); Glucose 267 mg/dL (70-100); Magnesium 1.7 mg/dL (1.8-2.4); Potassium 4.5 mmol/L (3.5-5.1); Sodium 135 mmol/L (136-145)
[2019-01-14 07:49] VITALS: BP 132/85; PULSE 68; RESP 17; TEMP 36.6; O2SAT 98
[2019-01-14] MEDS: Nystatin POWDER 60 GM JAR TP (08:28)
[2019-01-14] MEDS: Insulin NPH-Human 300 UNITS/3 ML PEN 20 UNIT SC ×2 (08:29→19:40)
[2019-01-14] MEDS: MAGNESIUM SULFATE 2 GM/50 ML BAG IVPB (08:29)
[2019-01-14] MEDS: Insulin Aspart 300 UNITS/3 ML PEN SC ×3 (08:29→16:45)
[2019-01-14] MEDS: Normal Saline Flush 10 ML SYR IVP ×2 (08:29→19:38)
[2019-01-14] MEDS: Furosemide 40 MG TAB 80 MG PO (08:30)
[2019-01-14] MEDS: Magnesium Oxide 400 MG TAB 800 MG PO ×2 (08:30→19:39)
[2019-01-14] MEDS: Spironolactone 25 MG TAB PO ×2 (08:30→16:44)
[2019-01-14] MEDS: FLUoxetine 20 MG CAP 40 MG PO (08:30)
[2019-01-14] MEDS: Insulin REGULAR-Human 100 UNITS/ML UNIT 15 UNITS SC ×3 (08:31→16:45)
[2019-01-14] MEDS: Atorvastatin 40 MG TAB PO (08:31)
[2019-01-14] MEDS: Losartan 50 MG TAB 100 MG PO (08:31)
[2019-01-14] MEDS: Apixaban 5 MG TAB PO ×2 (08:31→19:39)
[2019-01-14] MEDS: Metoprolol 50 MG TAB PO ×2 (08:31→19:39)
[2019-01-14] MEDS: Fluconazole 100 MG TAB 200 MG PO (08:31)
--- NOTE | 2019-01-14 09:23 | PT.INTREAT ---
Date of service: 01/14/19 Time of Service: 09:23 PT Notes SUBJECTIVE: Madison stating she is doing well. Agreeable to PT treatment. OBJECTIVE: Pt toilets independently including jairo brown. TRANSFERS Sit to stand: S Stand to sit: S GAIT Device: 4WW Weight bearing: Full Assist: S Distance: 200' ASSESSMENT: Pt tolerating PT well without LOB. Is becoming independent with her transfers as well as performing her seated strengthening exercises. PLAN: Continue current POC. Treatment time: Alisha Wiseman, METAL FLOORING INSTALLER
--- NOTE | 2019-01-14 11:11 | PGE_ITS ---
Date of Service Date of service: 01/14/19 Time of Service: 11:13 Assessment and Plan (1) Cellulitis of breast: Start date: 01/14/19 Start time: 11:48 Current visit: Yes Status: Acute Improving. Left breast with erythema and excoriation localized to under breast, right breast without erythema, slight excoriation improved from yesterda. Continue to monitor. Zin, A/D and clotrimozole, compound added for excoriation and wetness protection (2) Fungal dermatitis: Start date: 01/14/19 Start time: 11:49 Current visit: Yes Status: Acute Fungal component under breasts. Continue to keep moisture out, see above. (3) Uncontrolled diabetes mellitus: Start date: 01/14/19 Start time: 11:51 Current visit: Yes Status: Acute 267 today by labs, added lantus 5 units subcu HS. Continue to monitor. (4) Pulmonary hypertension: Start date: 01/14/19 Start time: 11:51 Current visit: No Status: Chronic Due to KELLEY - noncompliant with CPAP. Refuses CPAP. (5) Hypothyroidism: Start date: 01/14/19 Start time: 11:51 Current visit: No Status: Chronic TSH within range. Continue levothyroxine at current dose. (6) Atrial fibrillation: Start date: 01/14/19 Current visit: No Status: Chronic Rate controlled. Continue home therapy with apixaban and metoprolol. Home dose 200 has not been picked up at the pharmacy since July. Started on 50 mg BID with montioring. (7) DVT prophylaxis: Start date: 01/14/19 Start time: 11:52 Current visit: Yes Status: Acute Therapeutic on apixaban. (8) Discharge planning issues: Start date: 01/14/19 Start time: 11:52 Current visit: Yes Status: Acute She is a DNR/DNI. She would likely benefit from rehab at a long-term facility prior to re turning home as she does not appear to be effectively caring for herself at home. Care management reports that she is currently refusing rehab and/or services. Continue to offer. Continue physical therapy and Occupational Therapy. Subjective Patient reports: no new complaints Interval history since last seen: Doing well today. Erythema under left breast is improving, with erythema localized to fold, below nipple. Continue treatment. Denies SOB, CP, n/v/d/. Exam Const General: cooperative, healthy appearing and comfortable Neck Lymphatic: no lymphadenopathy noted and no lymphedema noted Chest Chest: normal inspection of the chest Cardio Jugular venous pressure: no JVD Rhythm: abnormal rhythm Heart Sounds: no murmurs Other: Irregularly irregular GI Inspection: normal to inspection Palpation: soft Percussion: normal to percussion Auscultation: normal bowel sounds Skin General skin exam: no rashes or lesions noted Neuro General: alert, awake and oriented x3 Objective Objective Clinical Data: Abnormal lab results 01/13/19 01/14/19 01/14/19 Range/Units 14:53 06:32 06:32 Hgb 15.8 H (12.0-15.5) g/dL Hct 46.9 H (36.0-46.0) % Absolute Monocytes 0.94 H (0.11-0.7) k/cumm Sodium 135 L (136-145) mmol/L BUN 21 H (7-18) mg/dL Glucose 267 H (70-100) mg/dL Magnesium 1.7 L (1.8-2.4) mg/dL Random Vancomycin 12.4 H* (5.0-10.0) ug/mL Vital Signs Temperature 36.6 C 01/14/19 07:49 Temperature Source Temporal Artery Scan 01/14/19 07:49 Pulse 68 01/14/19 07:49 Pulse Rhythm Regular 01/14/19 08:45 Respiratory Rate 17 01/14/19 07:49 Respiratory Effort 01/14/19 08:45 Respiratory Depth Normal 01/14/19 08:45 Respiratory Pattern Normal 01/14/19 08:45 Blood Pressure 132/85 01/14/19 07:49 Blood Pressure Position Sitting 01/09/19 11:15 Pulse Oximetry 98 01/14/19 07:49 Oxygen Delivery Method Room Air 01/14/19 07:49 Oxygen Flow Rate 0 01/14/19 07:49 Pain Level 0 01/14/19 08:45 Comment 01/13/19 20:57 Intake & Output 01/13/19 01/13/19 01/14/19 11:59 23:59 11:59 Intake Total 724.413 / 2884.376 7246 / 7797.372 4043 / 1150 Output Total 200 / 200 200 / 200 Balance 524.413 / 2341.636 8169 / 1544.413 950 / 950 Weight 89.7 kg Intake: IV 284.413 / 584.413 300 / 584.413 250 / 250 Oral 440 / 1160 720 / 1160 900 / 900 Output: Urine 200 / 200 200 / 200 Other: Urine Color Yellow Yellow Yellow Urine Appearance Clear Clear Clear Sediment Urine Odor Normal Normal Normal Comment Missed hat Patient voids with BM in bedside commode. Unable to assess amount. Stool Size Moderate Large Moderate Stool Characteristics Soft Soft Soft Formed Brown Brown Voiding Methods Toilet Toilet Diaper Incontinent Incontinent Incontinent Laboratory Results WBC 8.61 k/cumm (4.4-10.8) 01/14/19 06:32 RBC 5.10 m/cumm (4.00-5.20) 01/14/19 06:32 Hgb 15.8 g/dL (12.0-15.5) H 01/14/19 06:32 Hct 46.9 % (36.0-46.0) H 01/14/19 06:32 MCV 92.0 fL (80-95) 01/14/19 06:32 MCH 31.0 pg (27.0-33.0) 01/14/19 06:32 MCHC 33.7 g/dL (32.0-36.0) 01/14/19 06:32 RDW 13.3 % (11.7-14.6) 01/14/19 06:32 Plt Count 307 x1000/uL (130-400) 01/14/19 06:32 MPV 11.0 fL (8.0-11.0) 01/14/19 06:32 Immature Gran % 0.6 01/14/19 06:32 Neutrophils % 52.9 01/14/19 06:32 Lymphocytes % 32.6 01/14/19 06:32 Monocytes % 10.9 01/14/19 06:32 Eosinophils % 2.4 01/14/19 06:32 Basophils % 0.6 01/14/19 06:32 Absolute Neutrophils 4.55 k/cumm (1.2-6.7) 01/14/19 06:32 Absolute Lymphocytes 2.81 k/cumm (1.2-3.4) 01/14/19 06:32 Absolute Monocytes 0.94 k/cumm (0.11-0.7) H 01/14/19 06:32 Absolute Eosinophils 0.21 k/cumm (0.0-0.7) 01/14/19 06:32 Absolute Basophils 0.05 k/cumm (0.0-0.2) 01/14/19 06:32 ESR 58 MM/HR (0-30) H 01/13/19 06:50 Sodium 135 mmol/L (136-145) L 01/14/19 06:32 Potassium 4.5 mmol/L (3.5-5.1) 01/14/19 06:32 Chloride 98 mmol/L (98-107) 01/14/19 06:32 Carbon Dioxide 27.4 mmol/L (21.0-32.0) 01/14/19 06:32 Anion Gap 9.6 mmol/L (3-11) 01/14/19 06:32 BUN 21 mg/dL (7-18) H 01/14/19 06:32 Creatinine 0.81 mg/dL (0.55-1.02) 01/14/19 06:32 Estimated GFR/1.73 m2 >= 60.00 (mL/min/1.73m2) 01/14/19 06:32 Glucose 267 mg/dL (70-100) H 01/14/19 06:32 Lactate 1.1 mmol/l (0.6-1.4) 01/10/19 07:00 Calcium 8.9 mg/dL (8.5-10.1) 01/14/19 06:32 Magnesium 1.7 mg/dL (1.8-2.4) L 01/14/19 06:32 Total Bilirubin 1.1 mg/dL (0.2-1.0) H 01/09/19 11:34 AST 16 U/L (15-37) 01/09/19 11:34 ALT 18 U/L (12-78) 01/09/19 11:34 Alkaline Phosphatase 166 U/L (46-116) H 01/09/19 11:34 C-Reactive Protein 1.23 mg/dL (0.0-0.3) H 01/13/19 06:50 Total Protein 7.0 g/dL (6.4-8.2) 01/09/19 11:34 Albumin 2.8 g/dL (3.4-5.0) L 01/09/19 11:34 TSH 2.98 uIU/mL (0.358-3.74) 01/10/19 07:00 Random Vancomycin 12.4 ug/mL (5.0-10.0) H* 01/13/19 14:53
[2019-01-14 11:23] VITALS: BP 131/76; PULSE 57; RESP 16; TEMP 36.5; O2SAT 96
--- NOTE | 2019-01-14 13:06 | PDOC.CMPRO ---
- If Service Date Differs Date of service: 01/14/19 Time of Service: 13:06 Care Management Progress Note S/O-Madison continues to require inpatient LOC. She agrees to HH services including nursing, PT/OT and wound care. She remains on IV antibiotics she will be started on a antifungal. Her betablocker has been decreased due to bradycardia. She was discussed with possibility of SB1 to manage her skin problems and IV Abx as necessary. She is receptive to this if necessary. A-68 yo woman admitted with cellulitis of breast with multiple areas of skin breakdown. P-d/c home as per MD when medically appropriate. Anticipate referral to HH including nursing, PT, OT and DIRECTOR INFORMATION SECURITY. SB1 short term before d/c home. CM will continue to coordinate discharge plan.
[2019-01-14 15:19] VITALS: BP 132/75; PULSE 61; RESP 18; TEMP 36.4; O2SAT 97
[2019-01-14 19:30] VITALS: BP 145/84; PULSE 65; RESP 17; TEMP 36.5; O2SAT 94
[2019-01-14] MEDS: Insulin Glargine 300 UNITS/3 ML PEN SC (19:40)
[2019-01-14] MEDS: rOPINIRole 1 MG TAB 3 MG PO (21:22)
[2019-01-14 23:15] VITALS: BP 146/82; PULSE 64; RESP 18; TEMP 36.4; O2SAT 96
[2019-01-15 03:25] VITALS: BP 145/87; PULSE 60; RESP 18; TEMP 36.6; O2SAT 95
[2019-01-15] MEDS: Levothyroxine 50 MCG TAB PO (05:36)
[2019-01-15 07:25] VITALS: BP 124/60; PULSE 55; RESP 18; TEMP 36.7; O2SAT 96
[2019-01-15 07:27] LABS: Abs Immature Grans 0.08 k/cumm (0.0-0.09); Absolute Basophil Count 0.09 k/cumm (0.0-0.2); Absolute Eosinophil Count 0.29 k/cumm (0.0-0.7); Absolute Lymphocyte Count 3.35 k/cumm (1.2-3.4); Absolute Monocyte Count 1.14 k/cumm (0.11-0.7); Absolute Neutrophil Count 4.89 k/cumm (1.2-6.7); Basophils % 0.9; Eosinophils % 2.9; HCT 48.1 % (36.0-46.0); HGB 16.1 g/dL (12.0-15.5); Immature Grans % 0.8; Mean Corp. HGB Concentration 33.5 g/dL (32.0-36.0); Mean Corpuscular Hemoglobin 30.8 pg (27.0-33.0); Mean Platelet Volume 10.8 fL (8.0-11.0); Monocytes % 11.6; Neutrophils % 49.8; Platelet Count 346 x1000/uL (130-400); RBC 5.23 m/cumm (4.00-5.20); RBC Distribution Width 13.2 % (11.7-14.6); White Blood Cell Count 9.84 k/cumm (4.4-10.8)
[2019-01-15 07:36] LABS: BUN 24 mg/dL (7-18); CREATININE 1.02 mg/dL (0.55-1.02); Calcium 9.3 mg/dL (8.5-10.1); Chloride 95 mmol/L (98-107); Estimated GFR 54.22 (mL/min/1.73m2); Glucose 291 mg/dL (70-100); Magnesium 1.6 mg/dL (1.8-2.4); Potassium 4.8 mmol/L (3.5-5.1); Sodium 132 mmol/L (136-145)
[2019-01-15] MEDS: Insulin NPH-Human 300 UNITS/3 ML PEN 20 UNIT SC ×2 (08:42→19:57)
[2019-01-15] MEDS: Insulin REGULAR-Human 100 UNITS/ML UNIT 15 UNITS SC ×3 (08:42→16:33)
[2019-01-15] MEDS: Insulin Aspart 300 UNITS/3 ML PEN SC ×3 (08:43→16:34)
[2019-01-15] MEDS: FLUoxetine 20 MG CAP 40 MG PO (08:44)
[2019-01-15] MEDS: Furosemide 40 MG TAB 80 MG PO (08:44)
[2019-01-15] MEDS: Magnesium Oxide 400 MG TAB 800 MG PO ×3 (08:44→19:54)
[2019-01-15] MEDS: Atorvastatin 40 MG TAB PO (08:44)
[2019-01-15] MEDS: Losartan 50 MG TAB 100 MG PO (08:44)
[2019-01-15] MEDS: Apixaban 5 MG TAB PO ×2 (08:45→19:54)
[2019-01-15] MEDS: Spironolactone 25 MG TAB PO ×2 (08:45→16:34)
--- NOTE | 2019-01-15 09:04 | OT.INNT ---
Date of service: 01/15/19 Time of Service: 08:15 Occupational Therapy Notes 01/15/19 OT went to see pt who reports that she would like to get washed up. OT set everything up and pt then states that she actually doesn't want to get washed up as she got washed up last night. She says she will not work with OT as she wants to eat her breakfast and there is no need to do anything today. OT will resume services tomorrow. Shakira Nickerson, OTR/[facility]
[2019-01-15] MEDS: Fluconazole 100 MG TAB 200 MG PO (09:06)
--- NOTE | 2019-01-15 09:28 | W.INDIABCONS ---
Date of service: 01/15/19 Time of Service: 09:28 Diabetes Inpatient Consult DESCRIPTION/ASSESSMENT: Follow up for Madison Hoyos who is hospitalized for cellulitis. BLood sugars past 2 days 229-339 on a complicated insulin regimen of 15u Regular with each meal plus resistant Novolog correction in addition to 20u NPH twice daily and 5u Glargine. At home she takes 65uNPH twice daily. She is eating 46-67grams carbohydrate. INTERVENTION: Suggest increasing NPH to closer to her usual dose given her persistent hyperglycemia and d/c Glargine to simplify regimen. In addition, add Regular insulin for correction instead of Novolog, at the same dosage. Recommendation to increase NPH to 30units twice daily and 15u Regular insulin plus resistant insulin correction. PLAN: Will follow blood sugars. Will review carbohydrates offered with CDM to encourage consistency. Time Spent in Nutritional Counseling and Treatment: 0
[2019-01-15] MEDS: MAGNESIUM SULFATE 2 GM/50 ML BAG IVPB (09:49)
[2019-01-15] MEDS: Doxycycline Hyclate 100 MG CAP PO ×2 (10:12→19:54)
[2019-01-15 11:09] VITALS: BP 123/79; PULSE 60; RESP 17; TEMP 36.5; O2SAT 97
--- NOTE | 2019-01-15 11:23 | PDOC.CMPRO ---
Care Management Progress Note S/O-Met with Madison today. Nurse Practitioner indicates she is changing to oral ABx today and anticipating d/c home tomorrow with HH services. Madison is willing to have HH services, but she declined SNF placement. She was receptive to possibility of SB1, but really prefers to go home, and PROCEDURES NURSE feels this is appropriate. A-68 yo woman admitted with cellulitis of breast with multiple areas of pulliam breakdown. P-d/c home as per MD/PROCEDURES NURSE when medically appropriate, anticipate tomorrow. Referral to HH will be made for RN, PT/OT and BEREAVEMENT PROGRAM COORDINATOR. CM will continue to coordinate discharge plans.
--- NOTE | 2019-01-15 11:35 | W.PM.PROGNOT ---
Date of Service Date of service: 01/15/19 Time of Service: 11:35 Assessment and Plan (1) Cellulitis of breast: Start date: 01/15/19 Start time: 11:39 Current visit: Yes Status: Acute Improved vastly with compound, erythema now under left breast, right breast with no erythema. Excoriation under left breast improved. Transitioned to PO antibiotics and continue to monitor. (2) Fungal dermatitis: Start date: 01/15/19 Start time: 11:40 Current visit: Yes Status: Acute Fungal component under breasts. Continue to keep moisture out, see above. (3) Uncontrolled diabetes mellitus: Start date: 01/15/19 Start time: 11:40 Current visit: Yes Status: Acute Continue to monitor. SSI, increased lantus to 10 she will need follow up as an outpatient to control blood sugars (4) Pulmonary hypertension: Start date: 01/15/19 Start time: 11:41 Current visit: No Status: Chronic Due to KELLEY - noncompliant with CPAP. Refuses CPAP. (5) Hypothyroidism: Start date: 01/15/19 Start time: 11:41 Current visit: No Status: Chronic TSH within range. Continue levothyroxine at current dose. (6) Atrial fibrillation: Start date: 01/15/19 Start time: 11:41 Current visit: No Status: Chronic Rate controlled. Continue home therapy with apixaban and metoprolol. Home dose 200 has not been picked up at the pharmacy since July. Started on 50 mg BID with montioring. (7) DVT prophylaxis: Start date: 01/15/19 Start time: 11:41 Current visit: Yes Status: Acute Therapeutic on apixaban. (8) Discharge planning issues: Start date: 01/15/19 Start time: 11:41 Current visit: Yes Status: Acute She is a DNR/DNI. She would likely benefit from rehab at a [place] [facility] facility prior to returning home as she does not appear to be effectively caring for herself at home. Care management reports that she is currently refusing rehab and/or services. Continue to offer. Continue physical therapy and Occupational Therapy. (9) Hypomagnesemia: Start date: 01/15/19 Start time: 11:41 Current visit: Yes Status: Acute Repleted with IV, however half way during infusion IV infilitrated. 800 mg PO ordered. Recheck with am labs Subjective Patient reports: feels better Interval history since last seen: Looking well today. Erythema is improved, compound appears to be working well. Transitioned from IV antibiotics to PO. Monitor overnight with possible discharge in the morning. Exam Narrative Exam Narrative: General: very pleasant middle-aged obese female, appears older than her stated age, A&OX3, sitting up in the chair with legs dependent. Neuro: OHKAY OWINGEH, A&OX3, no focal neurological deficits Skin: slight excoriation under left breast with erythema that is vastly improved. HEENT: Normocephalic, atraumatic, hearing aids bilaterally, extraocular movements intact, pupils equal and round, mucous membranes moist. Neck: Supple, no JVD. Heart: Heart sounds irregularly irregular, no murmur appreciated. Lungs: Respirations even and unlabored, lung sounds clear bilaterally. GI: Normal active bowel sounds x4 quadrants, abdomen is large, soft, nontender on palpation, nondistended Const General: cooperative, healthy appearing and comfortable Neck Lymphatic: no lymphadenopathy noted and no lymphedema noted Chest Chest: normal inspection of the chest Cardio Jugular venous pressure: no JVD Rhythm: abnormal rhythm Heart Sounds: no murmurs GI Inspection: normal to inspection Palpation: soft Percussion: normal to percussion Auscultation: normal bowel sounds Skin General skin exam: no rashes or lesions noted Neuro General: alert, awake and oriented x3 Objective Objective Clinical Data: Abnormal lab results 01/15/19 01/15/19 Range/Units 06:30 06:30 RBC 5.23 H (4.00-5.20) m/cumm Hgb 16.1 H (12.0-15.5) g/dL Hct 48.1 H (36.0-46.0) % Absolute Monocytes 1.14 H (0.11-0.7) k/cumm Sodium 132 L (136-145) mmol/L Chloride 95 L (98-107) mmol/L BUN 24 H (7-18) mg/dL Glucose 291 H (70-100) mg/dL Magnesium 1.6 L (1.8-2.4) mg/dL Vital Signs Temperature 36.7 C 01/15/19 07:25 Temperature Source Tympanic 01/15/19 07:25 Pulse 55 L 01/15/19 07:25 Pulse Rhythm Regular 01/14/19 19:30 Respiratory Rate 18 01/15/19 07:25 Respiratory Effort Non-Labored 01/14/19 19:30 Respiratory Depth Normal 01/14/19 19:30 Respiratory Pattern Normal 01/14/19 19:30 Blood Pressure 124/60 01/15/19 07:25 Blood Pressure Position Sitting 01/09/19 11:15 Pulse Oximetry 96 01/15/19 07:25 Oxygen Delivery Method Room Air 01/15/19 07:25 Oxygen Flow Rate 0 01/15/19 07:25 Pain Level 0 01/14/19 23:15 Comment 01/13/19 20:57 Intake & Output 01/14/19 01/14/19 01/15/19 11:59 23:59 11:59 Intake Total 1200 / 2850 1650 / 2850 860 / 860 Output Total 200 / 200 Balance 1000 / 2650 1650 / 2650 860 / 860 Weight 89.7 kg 88.8 kg Intake: IV 300 / 620 320 / 620 290 / 290 Oral 900 / 2230 1330 / 2230 570 / 570 Output: Urine 200 / 200 Other: Urine Color Yellow Pale Yellow Urine Appearance Clear Clear Sediment Urine Odor Normal None Comment [employer] and went in toilet. Stool Size Moderate Small Moderate Stool Characteristics Soft Soft Soft Brown Formed Voiding Methods Diaper Toilet Toilet Incontinent Laboratory Results WBC 9.84 k/cumm (4.4-10.8) 01/15/19 06:30 RBC 5.23 m/cumm (4.00-5.20) H 01/15/19 06:30 Hgb 16.1 g/dL (12.0-15.5) H 01/15/19 06:30 Hct 48.1 % (36.0-46.0) H 01/15/19 06:30 MCV 92.0 fL (80-95) 01/15/19 06:30 MCH 30.8 pg (27.0-33.0) 01/15/19 06:30 MCHC 33.5 g/dL (32.0-36.0) 01/15/19 06:30 RDW 13.2 % (11.7-14.6) 01/15/19 06:30 Plt Count 346 x1000/uL (130-400) 01/15/19 06:30 MPV 10.8 fL (8.0-11.0) 01/15/19 06:30 Immature Gran % 0.8 01/15/19 06:30 Neutrophils % 49.8 01/15/19 06:30 Lymphocytes % 34.0 01/15/19 06:30 Monocytes % 11.6 01/15/19 06:30 Eosinophils % 2.9 01/15/19 06:30 Basophils % 0.9 01/15/19 06:30 Absolute Neutrophils 4.89 k/cumm (1.2-6.7) 01/15/19 06:30 Absolute Lymphocytes 3.35 k/cumm (1.2-3.4) 01/15/19 06:30 Absolute Monocytes 1.14 k/cumm (0.11-0.7) H 01/15/19 06:30 Absolute Eosinophils 0.29 k/cumm (0.0-0.7) 01/15/19 06:30 Absolute Basophils 0.09 k/cumm (0.0-0.2) 01/15/19 06:30 ESR 58 MM/HR (0-30) H 01/13/19 06:50 Sodium 132 mmol/L (136-145) L 01/15/19 06:30 Potassium 4.8 mmol/L (3.5-5.1) 01/15/19 06:30 Chloride 95 mmol/L (98-107) L 01/15/19 06:30 Carbon Dioxide 26.0 mmol/L (21.0-32.0) 01/15/19 06:30 Anion Gap 11.0 mmol/L (3-11) 01/15/19 06:30 BUN 24 mg/dL (7-18) H 01/15/19 06:30 Creatinine 1.02 mg/dL (0.55-1.02) 01/15/19 06:30 Estimated GFR/1.73 m2 54.22 (mL/min/1.73m2) 01/15/19 06:30 Glucose 291 mg/dL (70-100) H 01/15/19 06:30 Lactate 1.1 mmol/l (0.6-1.4) 01/10/19 07:00 Calcium 9.3 mg/dL (8.5-10.1) 01/15/19 06:30 Magnesium 1.6 mg/dL (1.8-2.4) L 01/15/19 06:30 Total Bilirubin 1.1 mg/dL (0.2-1.0) H 01/09/19 11:34 AST 16 U/L (15-37) 01/09/19 11:34 ALT 18 U/L (12-78) 01/09/19 11:34 Alkaline Phosphatase 166 U/L (46-116) H 01/09/19 11:34 C-Reactive Protein 1.23 mg/dL (0.0-0.3) H 01/13/19 06:50 Total Protein 7.0 g/dL (6.4-8.2) 01/09/19 11:34 Albumin 2.8 g/dL (3.4-5.0) L 01/09/19 11:34 TSH 2.98 uIU/mL (0.358-3.74) 01/10/19 07:00 Random Vancomycin 12.4 ug/mL (5.0-10.0) H* 01/13/19 14:53
--- NOTE | 2019-01-15 11:58 | PT.INTREAT ---
Date of service: 01/15/19 Time of Service: 11:58 PT Notes Inpatient Physical Therapy Treatment Note [facility] Date: 01/15/19 SUBJECTIVE: Madison is agreeable to participating in PT. OBJECTIVE: Agree with nsg that patient is safe to be cleared to be independent within her room with 4WW support. PAIN: No c/o pain BED MOBILITY/TRANSFERS Sit-stand: I Stand-sit: I GAIT Assistive Device: 4WW Weight bearing: Full Assist: S Distance: 300' in both a.m. and p.m. Other: Independent x10' with 4WW THEREX: Patient completed a LE strengthening program, in a standing position, as per flow sheet. She also completes functional [id number] exercise 2x5 with UE support. TOILETING: Patient toileted independently ASSESSMENT: Patient tolerated session well without complaint. She was able to tolerate a progression in gait distance with 4WW support and supervision. She was also able to tolerate a progression in ther ex, as she was able to complete standing exercises with supervision, only. PLAN: Continue with PT's POC TREATMENT CODE/TIME: Session 1: 25 minutes; [id number], [id number] Session 2: 30 minutes; [id number] x2
[2019-01-15] MEDS: Cephalexin 500 MG CAP PO ×3 (12:01→19:54)
--- NOTE | 2019-01-15 12:03 | PTTR_ITS ---
Date of service: 01/15/19 Time of Service: 11:58 PT Notes Inpatient Physical Therapy Treatment Note [facility] Date: 01/15/19 SUBJECTIVE: Madison is agreeable to participating in PT. OBJECTIVE: Agree with nsg that patient is safe to be cleared to be independent within her room with 4WW support. PAIN: No c/o pain BED MOBILITY/TRANSFERS Sit-stand: I Stand-sit: I GAIT Assistive Device: 4WW Weight bearing: Full Assist: S Distance: 300' in both a.m. and p.m. Other: Independent x10' with 4WW THEREX: Patient completed a LE strengthening program, in a standing position, as per flow sheet. She also completes functional [id number] exercise 2x5 with UE support. TOILETING: Patient toileted independently ASSESSMENT: Patient tolerated session well without complaint. She was able to tolerate a progression in gait distance with 4WW support and supervision. She was also able to tolerate a progression in ther ex, as she was able to complete standing exercises with supervision, only. PLAN: Continue with PT's POC TREATMENT CODE/TIME: Session 1: 25 minutes; [id number], [id number] Session 2: 30 minutes; [id number] x2
--- NOTE | 2019-01-15 12:26 | CMPROGNOTE_ITS ---
Care Management Progress Note S/O-Met with Madison today. Nurse Practitioner indicates she is changing to oral ABx today and anticipating d/c home tomorrow with HH services. Madison is willing to have HH services, but she declined SNF placement. She was receptive to possibility of SB[facility], but really prefers to go home, and [employer] feels this is appropriate. A-68 yo woman admitted with cellulitis of breast with multiple areas of pulliam breakdown. P-d/c home as per MD/MINUTE CL[employer]FF[employer] when medically appropriate, anticipate tomorrow. Referral to HH will be made for RN, PT/OT and SUMMER LAW CLERK. CM will continue to coordinate discharge plans.
[2019-01-15 15:32] VITALS: BP 111/70; PULSE 62; RESP 17; TEMP 36.4; O2SAT 96
[2019-01-15 19:42] VITALS: BP 139/78; PULSE 60; RESP 18; TEMP 36.3; O2SAT 97
[2019-01-15] MEDS: Metoprolol 50 MG TAB PO (19:54)
[2019-01-15] MEDS: rOPINIRole 1 MG TAB 3 MG PO (19:54)
[2019-01-15] MEDS: Insulin Glargine 300 UNITS/3 ML PEN 10 UNITS SC (19:58)
[2019-01-16 00:23] VITALS: RESP 19; TEMP 36.6
[2019-01-16 03:50] VITALS: BP 115/70; PULSE 63; RESP 16; TEMP 36.5; O2SAT 95
[2019-01-16] MEDS: Levothyroxine 50 MCG TAB PO (06:18)
[2019-01-16 07:00] VITALS: BP 122/81; PULSE 57; RESP 16; TEMP 36.6; O2SAT 98
[2019-01-16 07:24] LABS: Abs Immature Grans 0.07 k/cumm (0.0-0.09); Absolute Basophil Count 0.09 k/cumm (0.0-0.2); Absolute Eosinophil Count 0.26 k/cumm (0.0-0.7); Absolute Lymphocyte Count 3.27 k/cumm (1.2-3.4); Absolute Monocyte Count 0.96 k/cumm (0.11-0.7); Absolute Neutrophil Count 5.51 k/cumm (1.2-6.7); Basophils % 0.9; Eosinophils % 2.6; HCT 49.8 % (36.0-46.0); HGB 16.6 g/dL (12.0-15.5); Immature Grans % 0.7; Lymphocytes % 32.2; Mean Corp. HGB Concentration 33.3 g/dL (32.0-36.0); Mean Corpuscular Hemoglobin 30.8 pg (27.0-33.0); Mean Corpuscular Volume 92.4 fL (80-95); Mean Platelet Volume 10.7 fL (8.0-11.0); Monocytes % 9.4; Neutrophils % 54.2; Platelet Count 386 x1000/uL (130-400); RBC 5.39 m/cumm (4.00-5.20); RBC Distribution Width 13.3 % (11.7-14.6); White Blood Cell Count 10.16 k/cumm (4.4-10.8)
[2019-01-16 07:43] LABS: Anion Gap 9.9 mmol/L (3-11); BUN 33 mg/dL (7-18); CO2 27.1 mmol/L (21.0-32.0); CREATININE 1.04 mg/dL (0.55-1.02); Calcium 9.2 mg/dL (8.5-10.1); Chloride 97 mmol/L (98-107); Estimated GFR 53.02 (mL/min/1.73m2); Glucose 278 mg/dL (70-100); Magnesium 1.7 mg/dL (1.8-2.4); Potassium 4.9 mmol/L (3.5-5.1); Sodium 134 mmol/L (136-145)
[2019-01-16] MEDS: Insulin REGULAR-Human 100 UNITS/ML UNIT 15 UNITS SC ×2 (08:27→11:51)
[2019-01-16] MEDS: Insulin Aspart 300 UNITS/3 ML PEN SC ×2 (08:27→11:51)
[2019-01-16] MEDS: Insulin NPH-Human 300 UNITS/3 ML PEN 20 UNIT SC (08:28)
[2019-01-16] MEDS: Magnesium Oxide 400 MG TAB 800 MG PO ×2 (08:28→09:38)
[2019-01-16] MEDS: Doxycycline Hyclate 100 MG CAP PO (08:28)
[2019-01-16] MEDS: Cephalexin 500 MG CAP PO ×3 (08:28→15:26)
[2019-01-16] MEDS: Fluconazole 100 MG TAB 200 MG PO (08:28)
[2019-01-16] MEDS: Furosemide 40 MG TAB 80 MG PO (08:28)
[2019-01-16] MEDS: Losartan 50 MG TAB 100 MG PO (08:28)
[2019-01-16] MEDS: Apixaban 5 MG TAB PO (08:29)
[2019-01-16] MEDS: FLUoxetine 20 MG CAP 40 MG PO (08:29)
[2019-01-16] MEDS: Atorvastatin 40 MG TAB PO (08:29)
[2019-01-16] MEDS: Spironolactone 25 MG TAB PO ×2 (08:29→15:26)
--- NOTE | 2019-01-16 09:30 | PDOC.CMDIS ---
LACE Index Scoring Tool - Questions: Length of Stay (in days): 7 - 13 Acuity (Admit via E.D.?): Yes Comorbidities: Cerebrovascular Disease, Diabetes w/o Complication E.D. Visits: 1 - Answers: Total Score: 11 Risk of Readmission: High Risk Care Management Discharge Reason for Hospitalization: Cellulitis, uncontrolled DM Discharge Plan: She is being discharged home today with HH services for RN, PT, OT and BLEACH PLANT OPERATOR. Her is transporting her. Patient/Family Education Needs: RN to review d/c instructions re meds and activity levels. Review of Ask me Now questions. Services Needed at Discharge: Home Health Care Services, Occupational Therapy, Physical Therapy
--- NOTE | 2019-01-16 09:56 | OT.INDS ---
Date of service: 01/16/19 Time of Service: 07:25 Occupational Therapy Notes Occupational Therapy Inpatient Discharge Summary Date: 01/16/19 Dates of Service: 01/10/19-01/16/19 Referring Doctor:Jazlyn Conde NP OT Orders: generalized weakness and deconditioning, ambulates with walker Precautions: Standard PATIENT PROFILE/ADMITTING DIAGNOSIS: Pt is a 68 year old female who presented to the ER with complaints of pain under her breasts. She was admitted to [facility] for cellulitis of breast and fungal dermatitis. 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, bilateral (Chronic 10/14/14) Increased body mass index (Chronic) Hypothyroidism (Chronic 01/09/13) Hearing loss (Chronic) Gout (Chronic 03/27/13) Fracture of lumbar spine (Chronic 11/15/13) 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) Essential hypertension (Chronic 06/22/13) Elev transaminase/LDH (Chronic 01/09/13) Depressive disorder (Chronic) Cellulitis of leg (Chronic 10/31/14) Cataract (Chronic) Atrial fibrillation (Chronic 04/13/17) Amputated toe (Chronic) Displaced bimalleolar fracture of right ankle (Chronic 05/29/14) Bilateral lower leg cellulitis (Chronic 05/29/14) Morbid obesity (Chronic) Hyperlipidemia (Chronic) Hypertension (Chronic) Depression (Chronic) Hypothyroidism (Chronic) Restless legs syndrome (Chronic) Sleep apnea with use of continuous positive airway pressure (CPAP) (Chronic) Venous stasis (Chronic) History of tobacco use (Chronic) H/O fracture of ankle (Chronic) Insomnia (Chronic) Hearing loss (Chronic) 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 She was agreeable to OT session and reports that she would like to get washed up before breakfast. OBJECTIVE: ROM: RUE shoulder flexion limited to 120* d/t shoulder injury chronic, elbow WNL, import/export administrator and hand WNL L UE shoulder flexion limited to 125* d/t shoulder injury chronic, elbow WNL, import/export administrator and hand WNL STRENGTH: RUE Shoulder flexion 4-/5, bicep 4/5, tricep 4/5, import/export administrator is symmetrical and weak LUE Shoulder flexion 4-/5, bicep 4/5, tricep 4/5, import/export administrator is symmetrical and weak FUNCTIONAL MOBILITY/ADLS: Transfers with FWW Sit-Stand (S) Stand-sit (S) Bed-Chair SBA Chair-bed SBA BATHING Standing at sink with FWW SBA (I) washing face, (B) UE, abdomen, (B) LE, max (A) back DRESSING Seated position Dressing UE (I) Dressing LE (I) michele and doff (B) socks GROOMING Standing at sink with FWW, SBA (I) with brushing hair denies teeth TOILETING on toilet (I) EATING (I) with hand to mouth translation. BALANCE: Static sitting Normal Dynamic Sitting Normal Static Standing Good Dynamic Standing Good ASSESSMENT: Patient is a 68-year-old female referred to occupational therapy services with diagnosis of cellulitis of breast and fungal dermatitis. Patient was seen for 2 skilled OT services. She is demonstrating increased (I) in her ADL routines. Functionally she is able to go to the bathroom and perform her bathing routine standing at the sink like her premorbid level of function. Plan is for pt to be discharged today. At this time OT will discharge pt from skilled OT services. GOALS 1. Transfers- FWW (S) -not met currently SBA 2. Dressing- Sitting in chair (I) with UE/LE dressing with ideal technique- met 3. Bathing- Sitting in chair (I) with UE/LE bathing- met 4. Toileting- on toilet (I) -met PLAN OF CARE/TREATMENT PLAN: Discharge pt from skilled OT services. DISCHARGE RECOMMENDATIONS OT recommends that pt return home with HHOT services to assess pts safety for ADLs in home environment. TREATMENT TIME/MINUTES/CODES 40833, 15 minutes (07:25) Shakira Nickerson OTR/L [facility]
--- NOTE | 2019-01-16 10:01 | OTDS_ITS ---
Date of service: 01/16/19 Time of Service: 07:25 Occupational Therapy Notes Occupational Therapy Inpatient Discharge Summary Date: 01/16/19 Dates of Service: 01/10/19-01/16/19 Referring Doctor:Jazlyn Conde NP OT Orders: generalized weakness and deconditioning, ambulates with walker Precautions: Standard PATIENT PROFILE/ADMITTING DIAGNOSIS: Pt is a 68 year old female who presented to the ER with complaints of pain under her breasts. She was admitted to [facility] for cellulitis of breast and fungal dermatitis. 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, bilateral (Chronic 10/14/14) Increased body mass index (Chronic) Hypothyroidism (Chronic 01/09/13) Hearing loss (Chronic) Gout (Chronic 03/27/13) Fracture of lumbar spine (Chronic 11/15/13) 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) Essential hypertension (Chronic 06/22/13) Elev transaminase/LDH (Chronic 01/09/13) Depressive disorder (Chronic) Cellulitis of leg (Chronic 10/31/14) Cataract (Chronic) Atrial fibrillation (Chronic 04/13/17) Amputated toe (Chronic) Displaced bimalleolar fracture of right ankle (Chronic 05/29/14) Bilateral lower leg cellulitis (Chronic 05/29/14) Morbid obesity (Chronic) Hyperlipidemia (Chronic) Hypertension (Chronic) Depression (Chronic) Hypothyroidism (Chronic) Restless legs syndrome (Chronic) Sleep apnea with use of continuous positive airway pressure (CPAP) (Chronic) Venous stasis (Chronic) History of tobacco use (Chronic) H/O fracture of ankle (Chronic) Insomnia (Chronic) Hearing loss (Chronic) 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 She was agreeable to OT session and reports that she would like to get washed up before breakfast. OBJECTIVE: ROM: RUE shoulder flexion limited to 120* d/t shoulder injury chronic, elbow WNL, alumni relations coordinator and hand WNL L UE shoulder flexion limited to 125* d/t shoulder injury chronic, elbow WNL, alumni relations coordinator and hand WNL STRENGTH: RUE Shoulder flexion 4-/5, bicep 4/5, tricep 4/5, alumni relations coordinator is symmetrical and weak LUE Shoulder flexion 4-/5, bicep 4/5, tricep 4/5, alumni relations coordinator is symmetrical and weak FUNCTIONAL MOBILITY/ADLS: Transfers with FWW Sit-Stand (S) Stand-sit (S) Bed-Chair SBA Chair-bed SBA BATHING Standing at sink with FWW SBA (I) washing face, (B) UE, abdomen, (B) LE, max (A) back DRESSING Seated position Dressing UE (I) Dressing LE (I) michele and doff (B) socks GROOMING Standing at sink with FWW, SBA (I) with brushing hair denies teeth TOILETING on toilet (I) EATING (I) with hand to mouth translation. BALANCE: Static sitting Normal Dynamic Sitting Normal Static Standing Good Dynamic Standing Good ASSESSMENT: Patient is a 68-year-old female referred to occupational therapy services with diagnosis of cellulitis of breast and fungal dermatitis. Patient was seen for 2 skilled OT services. She is demonstrating increased (I) in her ADL routines. Functionally she is able to go to the bathroom and perform her bathing routine standing at the sink like her premorbid level of function. Plan is for pt to be discharged today. At this time OT will discharge pt from skilled OT services. GOALS 1. Transfers- FWW (S) -not met currently SBA 2. Dressing- Sitting in chair (I) with UE/LE dressing with ideal technique- met 3. Bathing- Sitting in chair (I) with UE/LE bathing- met 4. Toileting- on toilet (I) -met PLAN OF CARE/TREATMENT PLAN: Discharge pt from skilled OT services. DISCHARGE RECOMMENDATIONS OT recommends that pt return home with HHOT services to assess pts safety for ADLs in home environment. TREATMENT TIME/MINUTES/CODES [id number], 15 minutes (07:25) Shakira Nickerson OTR/L [facility]
[2019-01-16 11:05] VITALS: BP 128/77; PULSE 63; RESP 16; TEMP 36.4; O2SAT 98
--- NOTE | 2019-01-16 11:58 | PT.INDS ---
Date of service: 01/16/19 Time of Service: 11:23 PT Notes Inpatient Physical Therapy Discharge Summary Dates: 01/16/2019 Dates of Service: 01/11/2019 through 01/16/2019 Referring Doctor: Jazlyn Conde NP PT Orders: PT CONSULT: Generalized weakness and deconditioning, ambulate with walker. Precautions: Fall risk. Patient Profile/Admitting Diagnosis: A 68-year-old female recently admitted with breast cellulitis and diabetes. PMHX: Hypothyroidism, A. fib, hypertension, and chronic venous stasis, status post left total hip replacement multiple years ago Social History/Home Situation: , lives in a single floor home with a ramp entering the home. Current Functional Limitations: Independent with her ADLs and moving about within her home. She does not drive, but she goes grocery shopping and uses a motorized cart. Her personal hygiene consist of sponge baths because of a faulty bathtub, etc. Equipment Owned/DME: 4 wheeled walker with a seat Subjective: Pleasant woman who is hard of hearing and anxious to return home Objective: General Observation: Cooperative, no abnormal pain behavior noted Mental Status: Alert and oriented x4 Pain: 0/10 ROM: Upper Extremity: Her active right shoulder motion is limited to 100 degrees and when attempting to reach behind her back she is able to place her right hand on her right buttocks. Her active left shoulder motion is 120 degrees. She is good functional range of her elbow, forearm and wrist Lower Extremity: She has good functional pain-free range of motion of her hips, knees. Strength: Has full motor control throughout and her strength is generally rated 5/5 other than her shoulders that 4-/5 Sensation: Intact to light touch and proprioception Bed Mobility/Transfers: Rolling I Supine to sit I Sit to supine I Sit to stand I Stand to sit I Bed to chair I Chair to bed I Gait: Ambulate with a supervision assist 4-wheeled walker for 300 feet with supervision. Balance: Static Sitting: Good Dynamic Sitting: Good Static Standing: Good Dynamic Standing: Fair 30-second chair rise score of 3. Assessment: Patient is a 68 year old female referred to physical therapy services with the diagnosis of breast cellulitis and diabetes. Patient presents with clinical signs and symptoms consistent with diagnosis, as demonstrated by the following impairment level findings: Generalized weakness. Impairments are contributing to the following functional limitations: AMPAC score. Patient is assessed as a Moderate 18669 complexity based on the following: History: See comorbidities and social history Examination: See above for functional mutations impairments Presentation: Evolving Decision Making: Moderate complexity based on her clinical findings Goals: Goals X1 week Ambulating with a wheeled walker independently for greater than 300 feet. Increase strength throughout NOT MET DISCHARGE RECOMMENDATIONS: Patient will benefit from long term facility placement in order to progress mobility level, strength, and balance in preparation for a safe discharge to home. TREATMENT CODE/TIME: [id number] x20 minutes beginning at 11:23 AM. Thank you very much for this referral. Cindy Aaron PT, DPT, CLT [facility]
--- NOTE | 2019-01-16 12:05 | INDS_ITS ---
Date of service: 01/16/19 Time of Service: 11:23 PT Notes Inpatient Physical Therapy Discharge Summary Dates: 01/16/2019 Dates of Service: 01/11/2019 through 01/16/2019 Referring Doctor: Jazlyn Conde NP PT Orders: PT CONSULT: Generalized weakness and deconditioning, ambulate with walker. Precautions: Fall risk. Patient Profile/Admitting Diagnosis: A 68-year-old female recently admitted with breast cellulitis and diabetes. PMHX: Hypothyroidism, A. fib, hypertension, and chronic venous stasis, status post left total hip replacement multiple years ago Social History/Home Situation: , lives in a single floor home with a ramp entering the home. Current Functional Limitations: Independent with her ADLs and moving about within her home. She does not drive, but she goes grocery shopping and uses a motorized cart. Her personal hygiene consist of sponge baths because of a faulty bathtub, etc. Equipment Owned/DME: 4 wheeled walker with a seat Subjective: Pleasant woman who is hard of hearing and anxious to return home Objective: General Observation: Cooperative, no abnormal pain behavior noted Mental Status: Alert and oriented x4 Pain: 0/10 ROM: Upper Extremity: Her active right shoulder motion is limited to 100 degrees and when attempting to reach behind her back she is able to place her right hand on her right buttocks. Her active left shoulder motion is 120 degrees. She is good functional range of her elbow, forearm and wrist Lower Extremity: She has good functional pain-free range of motion of her hips, knees. Strength: Has full motor control throughout and her strength is generally rated 5/5 other than her shoulders that 4-/5 Sensation: Intact to light touch and proprioception Bed Mobility/Transfers: Rolling I Supine to sit I Sit to supine I Sit to stand I Stand to sit I Bed to chair I Chair to bed I Gait: Ambulate with a supervision assist 4-wheeled walker for 300 feet with supervision. Balance: Static Sitting: Good Dynamic Sitting: Good Static Standing: Good Dynamic Standing: Fair 30-second chair rise score of 3. Assessment: Patient is a 68 year old female referred to physical therapy services with the diagnosis of breast cellulitis and diabetes. Patient presents with clinical signs and symptoms consistent with diagnosis, as demonstrated by the following impairment level findings: Generalized weakness. Impairments are contributing to the following functional limitations: AMPAC score. Patient is assessed as a Moderate [id number] complexity based on the following: History: See comorbidities and social history Examination: See above for functional mutations impairments Presentation: Evolving Decision Making: Moderate complexity based on her clinical findings Goals: Goals X1 week Ambulating with a wheeled walker independently for greater than 300 feet. Increase strength throughout NOT MET DISCHARGE RECOMMENDATIONS: Patient will benefit from long-term facility placement in order to progress mobility level, strength, and balance in pre paration for a safe discharge to home. TREATMENT CODE/TIME: 01034 x20 minutes beginning at 11:23 AM. Thank you very much for this referral. Cindy Aaron PT, DPT, CLT [facility]
--- NOTE | 2019-01-16 14:16 | W.PM.DS.N ---
Date of service: 01/16/19 Time of Service: 14:17 DS: Diagnosis Discharge Diagnosis (1) Cellulitis of breast: Status: Acute (2) Fungal dermatitis: Status: Acute (3) Uncontrolled diabetes mellitus: Status: Acute (4) Pulmonary hypertension: Status: Chronic (5) Hypothyroidism: Status: Chronic (6) Atrial fibrillation: Status: Chronic (7) Hypomagnesemia: Status: Acute Discharge Plan Disposition Patient Disposition: HOME W/HOME HEALTH SERVICE Condition: Good Discharge Details Reason For Visit: CELLULITIS, UNCONTROLLED DIABETES Admit Date/Time: 01/09/19 12:52 Admit Provider: Juliann Mack Attending Provider: Juliann Mack Primary Care Provider: Jenna Rodriguez [facility] Course Hospital Course: Ms Hoyos is a 68 year old female with PMHx of IDDM2, HTN, hyperlipidemia, Afib on eliquis, chronic venous stasis dermatitis of BLE's, obesity with BMI of 39, KELLEY (not using CPAP) who presented to [facility] ED on 01/09/19 with reports of redness and rash under and involving both breasts. The redness apparently began about 2 weeks prior. She denied having any fevers at home. In the ED, she was found to have fungal dermatitis involving the skin under bilateral breasts and including bilateral breasts with superimposed bacterial cellulitis. She was initiated on IV cefazolin and admitted to the med/surg floor. Her cellulitis was slow to improve initially and she had purulent drainage, therefore, vancomycin was added. She was initially on Nystatin powder as well, however, given the extent of the infection, she was upgraded to oral fluconazole. Over the following days, her cellulitis improved. She had significant pain with manipulation at the time of her admission, however, the pain resolved by the time she was discharged home. Her skin culture grew strep constellatus (bel[place]), gram negative rods, klebsiella oxytoca, normal jasmin. Blood cultures are without growth at 120 hours. Of note, her blood glucose was in the 400s in the ED. Adjustments were made to her insulin regimen. She will return home on 1/2 of her usual NPH dose with directions to increase by 3-5 units q3-5 days until her fasting blood glucose is around 130-140. She worked with PT who recommended ongoing PT to continue to progress with mobility level, increase strength, and balance. Mrs. Hoyos is discharged home today with home health services to include RN/PT/OT/MUSIC EDUCATION ADJUNCT PROFESSOR. She will need to continue keflex, Doxycycline and Diflucan to complete a full 14-day course due to the extent of the infection on presentation. She will have outpatient labs to include CMP to follow up liver and renal function. Home Meds and New Rx's Prescriptions: New zinc oxide 20 % Ointment 60 g topical TID Qty: 0 RF: 0 cephalexin 500 mg Capsule 500 mg PO QID Qty: 24 RF: 0 clotrimazole 1 % Cream 60 g topical TID Qty: 0 RF: 0 vits A and D-white pet-lanolin Ointment 1 applic topical TID Qty: 0 RF: 0 fluconazole 100 mg Tablet 200 mg PO DAILY Qty: 9 RF: 0 doxycycline hyclate 100 mg Capsule 100 mg PO BID Qty: 12 RF: 0 metoprolol tartrate 50 mg Tablet 50 mg PO Q12H Qty: 60 RF: 0 nystatin 100,000 unit/gram Powder 60 g topical TID Qty: 0 RF: 0 Continued blood-glucose meter misc .ROUTE .MEDSUPPLY Qty: 1 RF: 0 spironolactone 25 mg tablet 25 mg PO BID DIURETIC Qty: 60 RF: 3 lancets 28 gauge misc 1 ea Miscellaneous TID & PRN Qty: 400 RF: 12 Blood Glucose Test strip .ROUTE .MEDSUPPLY Qty: 400 RF: 5 Eliquis 5 mg tablet 5 mg PO BID Qty: 180 RF: 12 furosemide 80 mg tablet 80 mg PO DAILY Qty: 90 RF: 5 triamcinolone acetonide 80 GM ointment 2 - 4 gm Topical BID PRNQty: 80 RF: 2 nystatin 60 GM powder Topical BID Qty: 60 RF: 12 fluoxetine [Prozac] 40 MG capsule 40 mg PO QAM Qty: 90 RF: 4 atorvastatin 40 MG tablet 40 mg PO DAILY Qty: 90 RF: 12 levothyroxine 50 MCG tablet 50 mcg PO DAILY Qty: 90 RF: 12 losartan [Cozaar] 100 MG tablet 100 mg PO QAM Qty: 90 RF: 4 metformin [Glucophage XR] 750 MG tablet extended release 24 hr 750 mg PO DAILY Qty: 90 RF: 4 ropinirole 1 mg tablet 3 mg PO HS Qty: 150 RF: 12 insulin syringe needleless [BD Insulin Syringe Slip Tip] 1 mL syringe 1 ea Miscellaneous BID Qty: 120 RF: 12 Pen Needle 30 gauge x 5/16 needle 1 ea Miscellaneous QID Qty: 300 RF: 6 Humulin R Regular U-100 Insuln 100 unit/mL solution 15 unit Sub-Q AC MDD 75 Qty: 1000 RF: 11 acetaminophen [Tylenol] 325 MG tablet 650 mg PO Q4H PRN PRN (Reason: Pain) RF: 0 Changed magnesium oxide 400 MG tablet 800 mg PO BID Qty: 0 RF: 0 Humulin N NPH Insulin KwikPen 100 unit/mL (3 mL) insulin pen 30 unit Sub-Q BID@0800,2000 Qty: 10 RF: 6 Discontinued metoprolol succinate 200 mg tablet extended release 24 hr 200 mg PO DAILY Qty: 90 RF: 4 Discharge Instructions Instructions: Antifungals (On the skin), Cellulitis (DC) Additional Instructions: Take antibiotics and antifungal until they are gone. Decrease your NPH insulin to 30 units BID, keep the regular insulin the same. Monitor your blood sugar, increase NPH by 3-5 units every 3-5 days until your fasting blood glucose is 130-140. Your metoprolol dose was decreased. Drink plenty of fluids. home health will follow you at home. Take care! Stand Alone Forms: Nursing Discharge Form Referrals: Jenna Rodriguez [place], [place] [Primary Care Provider] - (Dr. Rodriguez's office will call you with an appointment.) Activity:: Activity as Tolerated Equipment/Supplies:: No Equipment Needed Diet:: Carb Counting Discharge Orders Discharge Orders: Discharge Order (Routine); Ordered 01/16/19 Ordered By: Jazlyn Conde Other Ambulatory Orders: Comprehensive Metabolic Panel (Routine) Timeframe: 20190122 Location: Determined by Patient Ordered By: Jazlyn Conde Exam Narrative Exam Narrative: General: very pleasant middle-aged obese female, appears older than her stated age, A&OX3, sitting up in the chair with legs dependent. Neuro: [place], A&OX3, no focal neurological deficits Skin: slight excoriation under left breast with erythema that is vastly improved. No active drainage. HEENT: Normocephalic, atraumatic, hearing aids bilaterally, extraocular movements intact, pupils equal and round, mucous membranes moist. Neck: Supple, no JVD. Heart: Heart sounds irregularly irregular, no murmur appreciated. Lungs: Respirations even and unlabored, lung sounds clear bilaterally. GI: Normal active bowel sounds x4 quadrants, abdomen is large, soft, nontender on palpation, nondistended Extremities: with wrinkled skin to bilateral lower extremities, no significant edema, venous stasis changes to bilateral lower extremities. DS: Data Vitals/I&O Vitals and I&O: Vital Signs Temperature 36.4 C L 01/16/19 11:05 Temperature Source Tympanic 01/16/19 11:05 Pulse 63 01/16/19 11:05 Pulse Rhythm Regular 01/16/19 09:10 Respiratory Rate 16 01/16/19 11:05 Respiratory Effort Non-Labored 01/16/19 09:10 Respiratory Depth Normal 01/16/19 09:10 Respiratory Pattern Normal 01/16/19 09:10 Blood Pressure 128/77 01/16/19 11:05 Blood Pressure Position Sitting 01/09/19 11:15 Pulse Oximetry 98 01/16/19 11:05 Oxygen Delivery Method Room Air 01/16/19 11:05 Oxygen Flow Rate 0 01/16/19 11:05 Pain Level 0 01/16/19 09:10 Comment 01/16/19 03:50 Intake & Output 01/15/19 01/16/19 01/16/19 23:59 11:59 23:59 Intake Total 440 / 1300 440 / 680 240 / 680 Balance 440 / 1300 440 / 680 240 / 680 Weight 88.6 kg Intake: Oral 440 / 1010 440 / 680 240 / 680 Other: Urine Color Yellow Urine Appearance Clear Clear Urine Odor None Comment up AD RICA. pt gets up AD RICA to void can be INC at times. Stool Size Large Stool Characteristics Soft Formed Voiding Methods Toilet Labs on day of discharge: Labs from last 24 hours 01/16/19 01/16/19 06:30 06:30 WBC 10.16 RBC 5.39 H Hgb 16.6 H Hct 49.8 H MCV 92.4 MCH 30.8 MCHC 33.3 RDW 13.3 Plt Count 386 MPV 10.7 Immature Gran % 0.7 Neutrophils % 54.2 Lymphocytes % 32.2 Monocytes % 9.4 Eosinophils % 2.6 Basophils % 0.9 Absolute Neutrophils 5.51 Absolute Lymphocytes 3.27 Absolute Monocytes 0.96 H Absolute Eosinophils 0.26 Absolute Basophils 0.09 Sodium 134 L Potassium 4.9 Chloride 97 L Carbon Dioxide 27.1 Anion Gap 9.9 BUN 33 H D Creatinine 1.04 H Estimated GFR/1.73 m2 53.02 Glucose 278 H Calcium 9.2 Magnesium 1.7 L Preliminary micro results at discharge 01/09/19 11:22 Skin Culture - Preliminary Breast - Left Strep Constellatus([place] ) Gram Negative Joe Klebsiella oxytoca Normal Jasmin [facility] Medical History Vitamin D deficiency (Chronic 05/07/15) Type 2 diabetes mellitus with diabetic neuropathy (Chronic 05/13/15) Transient ischemic attack (Chronic) Sensorineural hearing loss, bilateral (Chronic 05/24/17) Sciatica (Chronic) Pulmonary hypertension (Chronic 04/13/17) Polycythemia (Chronic 03/08/17) Otosclerosis (Chronic 10/14/14) Osteoarthritis (Chronic) Organic sleep apnea, 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) Mixed hearing loss, bilateral (Chronic 10/14/14) Increased body mass index (Chronic) Hypothyroidism (Chronic 01/09/13) Hearing loss (Chronic) Gout (Chronic 03/27/13) Fracture of lumbar spine (Chronic 11/15/13) 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) Essential hypertension (Chronic 06/22/13) Elev transaminase/LDH (Chronic 01/09/13) Depressive disorder (Chronic) Cellulitis of leg (Chronic 10/31/14) Cataract (Chronic) Atrial fibrillation (Chronic 04/13/17) Amputated toe (Chronic) Displaced bimalleolar fracture of right ankle (Chronic 05/29/14) Bilateral lower leg cellulitis (Chronic 05/29/14) Morbid obesity (Chronic) Hyperlipidemia (Chronic) Hypertension (Chronic) Depression (Chronic) Hypothyroidism (Chronic) Restless legs syndrome (Chronic) Sleep apnea with use of continuous positive airway pressure (CPAP) (Chronic) Venous stasis (Chronic) History of tobacco use (Chronic) H/O fracture of ankle (Chronic) Insomnia (Chronic) Hearing loss (Chronic) 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 Grandfather Heart disease Grandfather Heart disease Grandmother Diabetes Grandmother Diabetes Sister No problems noted. Sister No problems noted. Sister Diabetes Sister No problems noted. Brother No problems noted. Brother No problems noted. Social History Smoking/Tobacco Use Status: Former Tobacco Use Alcohol Intake: never Drug use: Never Substance use type: does not use Do you feel safe at home: Yes Do you feel safe in your relationship?: Yes
--- NOTE | 2019-01-16 15:00 | CMDISCH_ITS ---
LACE Index Scoring Tool - Questions: Length of Stay (in days): 7 - 13 Acuity (Admit via E.D.?): Yes Comorbidities: Cerebrovascular Disease, Diabetes w/o Complication E.D. Visits: 1 - Answers: Total Score: 11 Risk of Readmission: High Risk Care Management Discharge Reason for Hospitalization: Cellulitis, uncontrolled DM Discharge Plan: She is being discharged home today with HH services for RN, PT, OT and TRIPE SCRAPER. Her is transporting her. Patient/Family Education Needs: RN to review d/c instructions re meds and activity levels. Review of Ask me Now questions. Services Needed at Discharge: Home Health Care Services, Occupational Therapy, Physical Therapy
--- NOTE | 2019-01-16 16:19 | PDOC.HHF2F ---
1. Encounter Date and Reason I certify that LEXI JOHNSON was seen by Jazlyn Conde on 01/16/19 and that I had a [id number] encounter with this patient that meets the physician face to face encounter requirements. 2. Clinical Findings Supporting Skilled Need and Homebound Status I certify that home health services are medically necessary, include either intermittent halfway and/or physical/speech therapy, and that this patient is homebound in that absences from the home require considerable and taxing effort and are infrequent or of short duration, or are attributable to the need to receive medical care. [X] (a) Attached documentation from encounter provides clinical findings supporting skilled need and homebound status (including what assistance patient requires to leave the home). The encounter with the patient was in whole, or in part, for the following medical condition, which is the primary reason for home health care: CELLULITIS, UNCONTROLLED DIABETES Alf: Needed to monitor multiple medical comorbidities, monitor cellulitis under bilateral breasts, monitor blood glucose and contact PCP for adjusments. Monitor heart rate. Assist with medication management. Physical Therapy: Needed to continue to work on strength, balance and endurance. OT: needed to eval/assess in home and make recommendations as needed. TECHNICAL SERVICES CONSULTANT: needed to assess need for community resources and assist with connecting with resources as needed. Speech Therapy: Homebound: Unable to leave home without assistance. 3. Certification and Authentication I certify that I composed the above information based on my clinical judgement relating to this patient's medical condition and, if applicable, clinical findings communicated to me by the NPP or inpatient physician who performed the Home Health Referral. All further orders will be obtained through Dr. Rodriguez (Community Based Physician - PCP)
== END 2019-01-16 16:04 | disposition home health service (06) | DRG 601 ==
LOC: ER 12:30 → MS 13:45
PROVIDERS: Nurse Practitioner; Admitting Provider Internal Medicine; Emergency Provider Nurse Practitioner Family; PCP Family Medicine; Visit Provider Internal Medicine
DX: N61.0 Mastitis without abscess (principal); B36.9 Superficial mycosis, unspecified; E11.65 Type 2 diabetes mellitus with hyperglycemia; Z79.4 Long term (current) use of insulin; I48.0 Paroxysmal atrial fibrillation; E83.42 Hypomagnesemia; Z79.01 Long term (current) use of anticoagulants; E78.5 Hyperlipidemia, unspecified; E66.9 Obesity, unspecified; Z68.39 Body mass index [BMI] 39.0-39.9, adult; G47.33 Obstructive sleep apnea (adult) (pediatric); B95.4 Other streptococcus as the cause of diseases classified elsewhere; B96.89 Other specified bacterial agents as the cause of diseases classified elsewhere; Z16.11 Resistance to penicillins; I27.20 Pulmonary hypertension, unspecified; E03.9 Hypothyroidism, unspecified; Z71.3 Dietary counseling and surveillance; R53.1 Weakness
CPT/HCPCS: 36415; 36416; 80048; 80053; 82962; 85027; 85652; 87040; 87077; 96361; 96365; 96372; 97110; 97162; 97165; 97530; 97535; 99223; 99226; 99232; 99233; 99239; 99285; 80202; 83605; 83735; 84443; 85025; 86140; 87070; 87186; 99284; J0690; J3475

== ENCOUNTER 2019-01-22 16:13 | Outpatient (REF) | payer MEDICARE, BC, SELFPAY ==
[2019-01-22 14:48] LABS: ALT 96 U/L (12-78); AST 71 U/L (15-37); Albumin 3.5 g/dL (3.4-5.0); Alkaline Phosphatase 149 U/L (46-116); Anion Gap 12.6 mmol/L (3-11); BUN 41 mg/dL (7-18); Bilirubin, Total 0.8 mg/dL (0.2-1.0); CO2 24.4 mmol/L (21.0-32.0); CREATININE 1.12 mg/dL (0.55-1.02); Calcium 9.4 mg/dL (8.5-10.1); Chloride 96 mmol/L (98-107); Estimated GFR 48.67 (mL/min/1.73m2); Glucose 263 mg/dL (70-100); Potassium 4.8 mmol/L (3.5-5.1); Sodium 133 mmol/L (136-145); Total Protein 7.4 g/dL (6.4-8.2)
== END 2019-01-22 16:33 ==
LOC: LBN 16:13
PROVIDERS: PCP Family Medicine; Visit Provider Family Medicine
DX: L03.818 Cellulitis of other sites (principal); B95.4 Other streptococcus as the cause of diseases classified elsewhere
CPT/HCPCS: 80053

== ENCOUNTER 2019-03-05 07:55 | Outpatient (CLI) | payer MEDICARE, BC, SELFPAY ==
[2019-03-05 11:02] LABS: Hemoglobin A1C 10.7 % (4.5-6.2)
== END 2019-03-05 08:15 ==
PROVIDERS: PCP Family Medicine; Visit Provider Family Medicine
DX: E11.40 Type 2 diabetes mellitus with diabetic neuropathy, unspecified (principal)
CPT/HCPCS: 36415; 83036

== ENCOUNTER 2019-05-23 11:13 | Outpatient (CLI) | payer MEDICARE, BC, SELFPAY ==
--- NOTE | 2019-05-23 09:29 | DI.RAD_ITS ---
EXAM: XR ANKLE LT COMPLETE INDICATION: L ankle pain. COMPARISON: RIGHT ANKLE COMPLETE from 07/18/2014 LEFT TIB/FIB from 03/04/2016 LEFT FOOT COMPLETE from 11/14/2017 TECHNIQUE: 2D digital imaging was performed. FINDINGS: There is generalized soft tissue swelling about the left ankle. The bones are osteopenic. Moderate degenerative changes are seen about the ankle. There is a lateral tilt of the talus. Atherosclerosis. Large calcaneal spur. There is an enthesophyte at the Achilles insertion site. There does appear to be thickening of the soft tissue region of the Achilles tendon with an associated soft tissue calcif ication. This may represent a Achilles tendon tear.
== END 2019-05-23 11:33 ==
PROVIDERS: PCP Family Medicine; Visit Provider Physician Assistant
DX: M25.572 Pain in left ankle and joints of left foot (principal); M14.672 Charcot's joint, left ankle and foot; M85.88 Other specified disorders of bone density and structure, other site; M19.072 Primary osteoarthritis, left ankle and foot; M77.32 Calcaneal spur, left foot; E11.9 Type 2 diabetes mellitus without complications; Z79.4 Long term (current) use of insulin
CPT/HCPCS: 99203; 99214; 73610

== ENCOUNTER 2019-08-02 23:20 | Inpatient (IN) | payer MEDICARE, BC, SELFPAY ==
[2019-08-02 23:18] VITALS: BP 130/72; PULSE 80; RESP 16; TEMP 36.7; O2SAT 98
--- NOTE | 2019-08-02 23:21 | W.ED.GENAD ---
Discharge Plan Discharge Details Chief Complaint: Orthopedic Admit Date/Time: 08/03/19 09:47 Admit Provider: Willem Stone Attending Provider: Willem Stone Primary Care Provider: Jenna Rodriguez ED Provider: Romel Murphy Discharge Data Discharge Date/Time-TO BE ENTERED AT DEPARTURE: 08/03/19 10:20 Medical Decision Making <Romel Murphy MD - Last Filed: 08/07/19 01:24> Patient here after falling off her toilet and not being able to get up. Complains of weakness and right leg pain. Vital signs are good. Exam mostly unremarkable except for some discomfort with ranging the right leg. Unable to localize to a specific area. CTL S spine is nontender. She is grossly neurologically intact. IV in place and fluids started. Laboratory studies sent. Straight cath urine to be obtained. Patient is on Eliquis so will obtain head CT as well as chest x-ray pelvis x-ray and right lower extremity films. Patient's laboratory studies significant for a white count of 14.9 and a hemoglobin of 17.9. Chemistries with critical glucose of 1015. Potassium is 3.9. Bicarb is 19.5 as is anion gap. BUN and creatinine are 25 and 1 respectively. Liver function is okay. Troponin is negative. CPK is only 612. Urine and x-ray still pending. Fluid rate increased to 200 an hour and insulin bolus with infusion started. X-rays have returned all negative for acute traumatic injury. Chest x-ray shows no pneumonia. CT head shows no bleed. Possibility of small meningioma is raised on CT which can be pursued with MRI as outpatient if necessary. Urinalysis with minimal red and white cells on micro. There is bacteria present. Culture reflexed but would not treat for UTI at this point. Fluids and insulin infusing. Will do fingerstick every hour and follow. Lab Data Lab results reviewed: Yes I reviewed the patient's lab results. ECG Data Attestation: I personally reviewed and interpreted this ECG (s) as follows: Prior ECG tracings: available for review Interpretation: Atrial fibrillation at a rate of 77. Normal interval and axis. Nonspecific ST changes throughout which are not significantly different than previous. <Marc Membreno MD - Last Filed: 08/03/19 14:43> Patient. Patient of Dr. Murphy. 68 woman being managed for hyperglycemia. Management prior to transfer care included documentation of a serum glucose level greater than 1000 with a minimally decreased bicarbonate. Clinically improved after receiving IV crystalloid and IV insulin. Patient admitted for hospital management with a plan for ICU admission. Advised by the hospitalist prior to transfer of care. On reevaluation patient with clinical improved with a serum glucose level = 42. Insulin infusion decreased to 3 units/h and patient admitted to the ICU. HPI <Romel Murphy MD - Last Filed: 08/07/19 01:24> General Mode of arrival: EMS. Date/Time Provider Initiated Documentation: 08/02/19 23:20. Limitations to Documentation: other (hard of hearing). Information obtained by: patient, EMS and old records reviewed. HPI Narrative: Patient is brought in by ambulance for evaluation of weakness. She fell off her toilet and was lying on the floor for about 3 hours. She complains of some right side and right leg discomfort. Eventually through texting able to get help sent to her. She is a very difficult historian because she is very hard of hearing and almost deaf. Other than right sided leg pain does not have other complaints of pain. Did not pass out. EMS reports large amount of alcoholic beverage bottles in the house. Patient reports to nursing that she is not sure when she last took her medications. Patient's is already admitted upstairs in our hospital. Related Data Home Medications Medication Instructions Recorded Confirmed nystatin 0 TOPICAL BID #60 gm 06/27/17 05/23/19 triamcinolone acetonide 2 - 4 gm TOPICAL BID PRN #80 gm 06/27/17 08/02/19 acetaminophen [Tylenol] 650 mg PO Q4H PRN PRN tab 11/18/17 08/02/19 fluoxetine [Prozac] 40 mg PO QAM #90 cap 02/13/18 08/02/19 insulin syringe needleless 1 mL #120 syringe 04/10/18 05/23/19 pen needle, diabetic 30 gauge x #300 ndl 04/10/18 05/23/1911/23 furosemide 80 mg tablet 80 mg PO DAILY #90 tab-cap 05/22/18 08/02/19 insulin regular human 100 unit/mL 15 unit SUB-Q AC #1000 unit MDD 75 07/13/18 08/02/19 injection solution blood-glucose meter #1 each 11/14/18 05/23/19 blood sugar diagnostic #400 each 11/29/18 05/23/19 lancets 28 gauge #400 ea 11/29/18 05/23/19 Humulin N NPH Insulin KwikPen 30 unit SUB-Q BID@0800,2000 #10 01/16/19 08/02/19 vial clotrimazole 60 g TOPICAL TID #0 g 01/16/19 08/02/19 magnesium oxide 800 mg PO BID #0 tab 01/16/19 08/02/19 metoprolol tartrate 50 mg PO Q12H #60 tab 01/16/19 08/02/19 vits A and D-white pet-lanolin 1 applic TOPICAL TID #0 gm 01/16/19 08/02/19 zinc oxide 60 g TOPICAL TID #0 g 01/16/19 08/02/19 atorvastatin 40 mg tablet 40 mg PO DAILY #90 tab-cap 02/20/19 08/02/19 levothyroxine 50 mcg tablet 50 mcg PO DAILY #90 tab-cap 02/20/19 08/02/19 losartan 100 mg tablet 100 mg PO QAM #90 tab-cap 02/20/19 08/02/19 spironolactone 25 mg tablet 25 mg PO BID DIURETIC #180 tab 04/05/19 08/02/19 apixaban 5 mg tablet 5 mg PO BID #180 tab-cap 05/01/19 08/02/19 metformin 750 mg tablet,extended 750 mg PO DAILY #90 tab 05/01/19 08/02/19 release 24 hr ropinirole 1 mg tablet 3 mg PO HS #150 tab 05/01/19 08/02/19 nystatin 100,000 unit/gram topical 1 applic TOPICAL TID #60 gm 07/24/19 08/02/19 powder Previous Rx's Medication Instructions Recorded acetaminophen [Tylenol] 650 mg PO Q4H PRN PRN tab 11/18/17 fluoxetine [Prozac] 40 mg PO QAM #90 cap 02/13/18 insulin syringe needleless 1 mL #120 syringe 04/10/18 pen needle, diabetic 30 gauge x #300 ndl 04/10/18 5/16 furosemide 80 mg tablet 80 mg PO DAILY #90 tab-cap 05/22/18 insulin regular human 100 unit/mL 15 unit SUB-Q AC #1000 unit MDD 75 07/13/18 injection solution blood-glucose meter #1 each 11/14/18 blood sugar diagnostic #400 each 11/29/18 lancets 28 gauge #400 ea 11/29/18 Humulin N NPH Insulin KwikPen 30 unit SUB-Q BID@0800,2000 #10 01/16/19 vial clotrimazole 60 g TOPICAL TID #0 g 01/16/19 magnesium oxide 800 mg PO BID #0 tab 01/16/19 metoprolol tartrate 50 mg PO Q12H #60 tab 01/16/19 vits A and D-white pet-lanolin 1 applic TOPICAL TID #0 gm 01/16/19 zinc oxide 60 g TOPICAL TID #0 g 01/16/19 atorvastatin 40 mg tablet 40 mg PO DAILY #90 tab-cap 02/20/19 levothyroxine 50 mcg tablet 50 mcg PO DAILY #90 tab-cap 02/20/19 losartan 100 mg tablet 100 mg PO QAM #90 tab-cap 02/20/19 spironolactone 25 mg tablet 25 mg PO BID DIURETIC #180 tab 04/05/19 apixaban 5 mg tablet 5 mg PO BID #180 tab-cap 05/01/19 metformin 750 mg tablet,extended 750 mg PO DAILY #90 tab 05/01/19 release 24 hr ropinirole 1 mg tablet 3 mg PO HS #150 tab 05/01/19 nystatin 100,000 unit/gram topical 1 applic TOPICAL TID #60 gm 07/24/19 powder Allergies Allergy/AdvReac Type Severity Reaction Status Date / Time No Known Allergies Allergy Verified 05/23/19 09:12 General JOLEEN: 3 Review of Systems <Romel Murphy MD - Last Filed: 08/07/19 01:24> Unobtainable due to (not obtain due to to severe hearing loss making communication difficult) PFSH <Romel Murphy MD - Last Filed: 08/07/19 01:24> Medical History Amputated toe (Chronic) GANGRENOUS 2ND AND 3RD RIGHT TOES 11/14/17 Amputated toe of right foot (Chronic) Arthritis (Chronic) Atrial fibrillation (Chronic) Atrial fibrillation (Chronic 04/13/17) Bilateral lower leg cellulitis (Chronic 05/29/14) a. right worse than left Cataract (Chronic) mild; Fine Drusen in macula-OD S/P SURGERY Cellulitis of leg (Chronic 10/31/14) Depression (Chronic) Depressive disorder (Chronic) Displaced bimalleolar fracture of right ankle (Chronic 05/29/14) DJD of shoulder (Chronic) a. 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 Left ankle 2012 Hearing loss (Chronic) Hearing loss (Chronic) BILATERAL AIDS difficulties w/ the hearing aids History of tobacco use (Chronic) a. 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-disordered breathing (Chronic) Restless legs syndrome (Chronic) Sciatica (Chronic) right; xray from 02/10 showed scattered spondylosis ant L4-5 on the left and mid lumbar scoliosis convex to the right Sensorineural hearing loss, bilateral (Chronic 05/24/17) Sleep apnea with use of continuous positive airway pressure (CPAP) (Chronic) Toe gangrene (Chronic) Transient ischemic attack (Chronic) Type 2 diabetes mellitus with diabetic neuropathy (Chronic 05/13/15) SEEN ENDOCRINE AT [facility] Venous stasis (Chronic) Vitamin D deficiency (Chronic 05/07/15) Surgical History Amputation RIGHT SECOND AND THIRD TOES DUE TO DIABETIC ULCERS WITH CELLULITIS;11/14/17 DR. MAI Colonoscopy - MAC (~2003) Extraction of cataract 04/15/17 DR. ARRIETA; LEFT EYE 04/29/17 DR. ARRIETA; RIGHT EYE PROCEDURES REPAIR OF INTESTINE NEC puncture during colonoscopy ACHILLOTENOTOMY L Achilles tendon repair Family History Mother Neoplasm LUNG Father Heart disease Brother Heart disease Sister No problems noted. Grandfather Heart disease Grandfather Heart disease Grandmother Diabetes Grandmother Diabetes Sister No problems noted. Sister No problems noted. Sister Diabetes Sister No problems noted. Brother No problems noted. Brother No problems noted. Social History Smoking/Tobacco Use Status: Former Tobacco Use Alcohol Intake: never Drug use: Never Substance use type: does not use Current gender identity: female Do you feel safe at home: Yes Do you feel safe in your relationship?: Yes Exam <Romel Murphy MD - Last Filed: 08/07/19 01:24> Narrative Exam Narrative: Vitals: Afebrile. Vital signs are normal. Room air pulse oximetry normal. Const: Obese older appearing than stated age female in NAD. HEENT: NC/AT. Normal facial exam. Eyes: Normal conjunctiva and sclera. Neck: Supple. Trachea midline. Lungs: Normal respiratory effort. Lungs are clear. Cor: RRR with murmur. Good radial pulses. GI: Soft. NT/ND. No guarding or rebound. Back: No TLS spine tenderness. Neuro: A+O x 3. Speech and mentation is normal. No gross motor or sensory deficit. Ext: Bilateral compression stockings on. No obvious deformity or tenderness. Some pain with range of motion of the right lower extremity. Skin: Warm and dry without wounds.
[2019-08-02] MEDS: Lactated Ringers 1,000 ML 125 ML IV (23:47)
[2019-08-02] MEDS: Acetaminophen 500 MG TAB 1000 MG PO (23:50)
--- NOTE | 2019-08-02 23:56 | NUR.NOTE ---
Nursing Note: Pt has dressing to lower legs bilateral. Hx of cellulitis. Dressing moist at this time. Pt does not want dressing touched. Pt also has redness to groin, being treated with nystatin.
[2019-08-02 23:58] LABS: Absolute Basophil Count 0.07 k/cumm (0.0-0.2); Absolute Eosinophil Count 0.03 k/cumm (0.0-0.7); Absolute Lymphocyte Count 1.01 k/cumm (1.2-3.4); Absolute Monocyte Count 0.61 k/cumm (0.11-0.7); Absolute Neutrophil Count 12.99 k/cumm (1.2-6.7); Basophils % 0.5; Eosinophils % 0.2; HCT 52.3 % (36.0-46.0); HGB 17.9 g/dL (12.0-15.5); Immature Grans % 1.3 %; Lymphocytes % 6.8; Mean Corp. HGB Concentration 34.2 g/dL (32.0-36.0); Mean Corpuscular Hemoglobin 31.5 pg (27.0-33.0); Mean Corpuscular Volume 92.1 fL (80-95); Mean Platelet Volume 11.4 fL (8.0-11.0); Monocytes % 4.1; Neutrophils % 87.1; Platelet Count 253 x1000/uL (130-400); RBC 5.68 m/cumm (4.00-5.20); RBC Distribution Width 13.2 % (11.7-14.6); White Blood Cell Count 14.91 k/cumm (4.4-10.8)
--- NOTE | 2019-08-02 23:59 | DI.RAD_ITS ---
EXAM: XR CHEST 2V PA LATERAL CLINICAL HISTORY: weakness/fall TECHNIQUE: COMPARISON: CHEST WITH CONTRAST from 05/20/2017 FINDINGS: The heart is mildly enlarged. Prominence of pulmonary markings may be due in part to poor inspiratio n but the possibility mild CHF or other interstitial process is not entirely excluded. No pleural ef fusion seen. IMPRESSION: Prominence of pulmonary markings, nonspecific. Mild CHF not excluded, appropriate follow-up studies suggested.
--- NOTE | 2019-08-02 23:59 | DI.RAD_ITS ---
EXAM: XR PELVIS AP CLINICAL HISTORY: weakness/fall TECHNIQUE: COMPARISON: SACRUM ONLY from 11/05/2015 XR TIB/FIB RT from 08/03/2019 XR FEMUR RT from 08/03/2019 FINDINGS: AP view of the pelvis and four views of the right femur were obtained. Left total hip prosthesis not ed in position, components appear fairly well seated as visualized but the femoral component and prox imal femur are not well visualized due to technique. No evidence of a right hip or femoral fracture. Two views of the leg were also obtained and show screw fixation of distal tibia and fibula no evidenc e of acute fracture. Note is made of degenerative changes of the knee. IMPRESSION: No evidence of acute injury.
--- NOTE | 2019-08-02 23:59 | DI.CT_ITS ---
EXAM: CT HEAD WO CLINICAL HISTORY: weakness/fall/on Eliquis TECHNIQUE: COMPARISON: No exams were available for comparison FINDINGS: Noncontrast cranial CT was performed. There is moderate generalized cerebral atrophy. There is no e vidence of acute intracranial hemorrhage, mass effect, or midline shift. Probable small ossified men ingioma versus osteoma right frontal bone, no deformity of underlying cerebral parenchyma. No calvarial fracture seen. Paranasal sinuses and mastoid air cells are clear. The orbital and temp oral bone structures appear intact. IMPRESSION: No evidence of acute abnormality.
[2019-08-03] VITALS (171 sets, daily range): BP systolic 96–180; BP diastolic 46–97; PULSE 56–104; RESP 11–43; TEMP 36.6–37.2; O2SAT 91–98
[2019-08-03 00:22] LABS: Creatine Kinase 612 U/L (26-192)
[2019-08-03 00:23] LABS: ALT 36 U/L (14-59); AST 43 U/L (15-37); Alkaline Phosphatase 210 U/L (46-116); Anion Gap 19.5 mmol/L (3-11); BUN 25 mg/dL (7-18); Bilirubin, Total 0.7 mg/dL (0.2-1.0); CO2 19.5 mmol/L (21.0-32.0); CREATININE 1.07 mg/dL (0.55-1.02); Calcium 9.7 mg/dL (8.5-10.1); Chloride 95 mmol/L (98-107); ETHANOL BLOOD 56.5 mg/dL (<3); Estimated GFR 51.31 (mL/min/1.73m2); Magnesium 2.1 mg/dL (1.8-2.4); Potassium 3.9 mmol/L (3.5-5.1); Sodium 134 mmol/L (136-145); Total Protein 8.1 g/dL (6.4-8.2)
[2019-08-03 00:26] LABS: Troponin I < 0.05 ng/Ml (<0.06)
[2019-08-03 00:47] LABS: Glucose 1015 mg/dL (74-106)
[2019-08-03] MEDS: Insulin REGULAR-Human 100 UNITS/ML UNIT 10 UNITS IV (01:09)
--- NOTE | 2019-08-03 01:30 | DI.VRAD_ITS ---
PROCEDURE INFORMATION: Exam: CT Head Without Contrast Exam date and time: 08/02/2019 12:47 AM Age: 68 years old Clinical indication: Injury or trauma; Initial encounter; Blunt trauma (contusions or hematomas); Consciousness not specified; Injury date: 08/02/19; Injury details: Fall, weakness, on eliquis TECHNIQUE: Imaging protocol: Computed tomography of the head without contrast. Radiation optimization: All CT scans at this facility use at least one of these dose optimization techniques: automated exposure control; mA and/or kV adjustment per patient size (includes targeted exams where dose is matched to clinical indication); or iterative reconstruction. COMPARISON: No relevant prior studies available. FINDINGS: Brain: There is mild periventricular hypodensity. No abnormal hyperdensities identified. There is no evidence of acute intracranial hemorrhage. The posterior fossa shows mild cerebellar atrophy. Midline shift: There are no extra-axial fluid collections or midline shift. Ventricles: There is mild ventriculomegaly and prominence of the cerebral sulci. The 4th ventricle is in the midline. There are no acute calvarial fractures. Based on the inner table of the right frontal bone, there is a 19 x 6 mm extra-axial calcification. There is no associated edema or midline shift. There is mild hyperostosis of the left frontal bone, poorly defined. Bones/joints: The calvarium appears intact without evidence of fractures. Sinuses: The visualized paranasal sinuses appear clear. Mastoid air cells: Visualized mastoid air cells are well aerated. Soft tissues: Unremarkable. IMPRESSION: 1. Involutional changes of the brain. 2. Mild nonspecific white matter degeneration. 3. No evidence of acute intracranial hemorrhage or acute infarction. 4. Probable small calcified meningioma of the inner table of the right frontal bone versus osteoma. 5. Probable osteoma or mild hyperostosis of the left frontal bone. Underlying meningioma cannot be entirely excluded. 6. If clinically indicated the above findings may be further evaluated by elective MRI of the brain without and with contrast. Dictated and Authenticated by: Jadiel Colindres MD. Ordering:PARVIN Urena MD
--- NOTE | 2019-08-03 01:35 | DI.VRAD_ITS ---
PROCEDURE INFORMATION: Exam: XR Pelvis Exam date and time: 08/02/2019 11:28 PM Age: 68 years old Clinical indication: Injury or trauma; Fall; Initial encounter; Blunt trauma (contusions or hematomas); Right; Hip; Injury date: 08/02/19; Prior surgery TECHNIQUE: Imaging protocol: XR pelvis. Views: 1 or 2 view. COMPARISON: CT ABD PELVIS WITH CONTRAST 12/12/2014 11:01 AM FINDINGS: Bones/joints: A single AP view of the pelvis shows diffuse osteopenic changes. There is a total left hip arthroplasty without evidence of complications. No acute fracture is identified. The sacrum is obscured by overlying sigmoid colon. No blastic or bony destructive lesions are noted. In this single AP view, the right hip appears unremarkable. Soft tissues: Unremarkable. IMPRESSION: 1. Diffuse osteopenic changes. 2. No evidence of acute fracture or dislocation with the limitation that the sacrum is obscured by the colon. 3. Status post total left hip arthroplasty without evidence of complications. Dictated and Authenticated by: Jadiel Colindres MD. Ordering:PARVIN Urena MD
--- NOTE | 2019-08-03 01:37 | DI.VRAD_ITS ---
PROCEDURE INFORMATION: Exam: XR Right Femur Exam date and time: 08/02/2019 11:28 PM Age: 68 years old Clinical indication: Injury or trauma; Fall; Initial encounter; Blunt trauma; Thigh or upper leg; Right; Injury date: 08/02/19 TECHNIQUE: Imaging protocol: XR Right femur. Views: 2 views. COMPARISON: No relevant prior studies available. FINDINGS: Bones/joints: There are diffuse osteopenic changes. There is no acute fracture or dislocation of the femur. No blastic or bony destructive lesions identified. Marginal osteophytes are seen in the right knee. Soft tissues: There are no radiopaque foreign bodies in the visualized soft tissues. IMPRESSION: 1. No acute fracture or dislocation of the right femur. 2. Osteoarthritis of the right knee. Dictated and Authenticated by: Jadiel Colindres MD. Ordering:PARVIN Urena MD
--- NOTE | 2019-08-03 01:42 | DI.VRAD_ITS ---
PROCEDURE INFORMATION: Exam: XR Chest, 2 Views Exam date and time: 08/02/2019 11:28 PM Age: 68 years old Clinical indication: Injury or trauma; Fall; Initial encounter; Blunt trauma (contusions or hematomas); Injury date: 08/02/19 TECHNIQUE: Imaging protocol: XR of the chest Views: 2 views. COMPARISON: No relevant prior studies available. FINDINGS: Lungs: There are no areas of airspace consolidation. Pleural space: No pleural effusion or pneumothorax identified. Heart/Mediastinum: The heart is top-normal in size. The aorta mediastinum appear unremarkable. Vasculature: There is mild pulmonary hypoexpansion and crowding of the vascular markings. Bones/joints: The visualized bony thorax shows degenerative changes of the thoracic spine and acromioclavicular joints. IMPRESSION: 1. Mild pulmonary hypoexpansion and crowding of the vascular markings. 2. No evidence of thoracic injury. Dictated and Authenticated by: Jadiel Colindres MD. Ordering:PARVIN Urena MD
--- NOTE | 2019-08-03 01:45 | DI.VRAD_ITS ---
PROCEDURE INFORMATION: Exam: XR Right Tibia and Fibula Exam date and time: 08/02/2019 12:41 AM Age: 68 years old Clinical indication: Injury or trauma; Fall; Initial encounter; Blunt trauma; Lower leg; Right; Injury date: 08/02/19; Prior surgery TECHNIQUE: Imaging protocol: XR Right tibia and fibula. Views: 2 views. COMPARISON: CR XR FEMUR RT 08/03/2019 12:15 AM FINDINGS: Bones/joints: There are diffuse osteopenic changes. There are osteophytes of the right knee consistent with osteoarthritis. No acute fracture or dislocation is identified. There are orthopedic pins transfixing the lateral and medial malleoli which show evidence of old healed fractures with bone remodeling. There is a prominent 10 mm plantar calcaneal spur. Soft tissues: Normal. IMPRESSION: 1. No acute fracture or dislocation. 2. Osteoarthritis of the right knee. 3. Old healed fractures of the lateral medial malleoli post orthopedic instrumentation. Dictated and Authenticated by: Jadiel Colindres MD. Ordering:PARVIN Urena MD
[2019-08-03] MEDS: INSULIN REGULAR IN 0.9 % NACL 100 UNIT/100 ML BAG IV (02:04)
[2019-08-03 02:22] LABS: Bilirubin Negative (Negative); Blood Moderate (Negative); Clarity Sl Cloudy (Clear); Glucose 500 mg/dL (Negative); Ketones 15 mg/dL (Negative); Leukocyte Esterase Negative (Negative); Nitrite Negative (Negative); Urobilinogen 0.2 EU/dL (Up TO 0.2); pH 5.5 (5-8)
[2019-08-03 02:23] LABS: Bacteria Moderate HPF (Negative); C & S Indicated? Yes; Casts Negative LPF (Negative); Crystals Negative HPF (Negative); Epithelial Cells Rare HPF (Negative); Mucus Negative (Negative)
--- NOTE | 2019-08-03 02:31 | NUR.NOTE ---
Nursing Note: Amena care provided after straight cath. Dry depends applied.
[2019-08-03 03:05] LABS: Glucose 668 mg/dL (74-106)
[2019-08-03] MEDS: Insulin REGULAR-Human 100 UNITS/ML UNIT 10 UNITS SC (03:24)
--- NOTE | 2019-08-03 05:06 | NUR.NOTE ---
Nursing Note: Wet depends changed. Clean linen and pad under patient. Tolerated well.
[2019-08-03 05:24] LABS: Anion Gap 14.2 mmol/L (3-11); BUN 19 mg/dL (7-18); CO2 23.8 mmol/L (21.0-32.0); CREATININE 0.92 mg/dL (0.55-1.02); Calcium 8.9 mg/dL (8.5-10.1); Chloride 101 mmol/L (98-107); Potassium 3.7 mmol/L (3.5-5.1); Sodium 139 mmol/L (136-145)
[2019-08-03 05:28] LABS: Glucose 586 mg/dL (74-106)
[2019-08-03 08:21] LABS: Anion Gap 9.3 mmol/L (3-11); BUN 17 mg/dL (7-18); CO2 25.7 mmol/L (21.0-32.0); Calcium 8.9 mg/dL (8.5-10.1); Chloride 104 mmol/L (98-107); Glucose 242 mg/dL (74-106); Potassium 3.2 mmol/L (3.5-5.1); Sodium 139 mmol/L (136-145)
--- NOTE | 2019-08-03 08:48 | W.PM.HP.N ---
Date of service: 08/03/19 Time of Service: 08:48 Assessment and Plan Assessment and plan (1) Diabetic ketoacidosis associated with type 2 diabetes mellitus: Status: Acute Assessment and plan: Transition over from IV insulin to basal bolus insulin. Overlap discontinuation of her IV insulin by 90 to 120 minutes after initiation of her basal insulin.Continue to monitor blood sugars every couple hours after discontinuation of her IV insulin. Recheck BMP 2 to 4 hours after discontinuation of her IV insulin and if there is no rise in her anion gap off of IV insulin she should continue with basal bolus insulin including carbohydrate coverage at meals and snacks. Qualifiers: Diabetes mellitus complication detail: without coma Qualified Code(s): E11.10 - Type 2 diabetes mellitus with ketoacidosis without coma (2) UTI (urinary tract infection): Status: Acute Assessment and plan: Check urine cultures. Begin IV Rocephin and transition over to oral antibiotics once urine culture results are known. Qualifiers: Hematuria presence: without hematuria Urinary tract infection type: acute cystitis Qualified Code(s): N30.00 - Acute cystitis without hematuria (3) Atrial fibrillation: Status: Chronic Assessment and plan: Continue apixaban and her metoprolol. Qualifiers: Atrial fibrillation type: unspecified chronic Qualified Code(s): I48.20 - Chronic atrial fibrillation, unspecified (4) Hypertension: Status: Chronic Assessment and plan: Continue her losartan and her metoprolol Qualifiers: Hypertension type: essential hypertension Qualified Code(s): I10 - Essential (primary) hypertension (5) Atherosclerotic peripheral vascular disease of extremity: Status: Acute Assessment and plan: Continue statins and blood pressure control and anticoagulation. Qualifiers: Laterality: bilateral Peripheral atherosclerosis artery type: [place] artery Peripheral atherosclerosis clinical manifestation: with intermittent claudication Peripheral atherosclerosis location: lower extremity Qualified Code(s): I70.213 - Atherosclerosis of [place] arteries of extremities with intermittent claudication, bilateral legs (6) Hypokalemia: Status: Acute Assessment and plan: Corrected with oral replacements and recheck labs (7) Sleep apnea with use of continuous positive airway pressure (CPAP): Status: Chronic Assessment and plan: Continue CPAP at night History of Present Illness History of Present Illness Chief Complaint: weakness, falls Narrative: 68-year-old female with type 2 diabetes mellitus requiring insulin for the past 10 years presented emergency department after having a fall off the toilet this evening. Patient has been home alone since her been hospitalized for surgery 3 days ago. Patient states that she had no syncope and no symptoms of lightheadedness or dizziness just generalized weakness and unable to support her self and getting up off the toilet. She admits that she is not checked her blood sugars in probably 5 days and has not had any insulin in the last 5 days. Patient also admits to drinking 2 bottles of 12 ounces each of Jabari vodka yesterday. She denies a history of habitual drinking and cannot recall the last time she had a drink of alcohol. Upon evaluation the emergency department she was found to be in DKA with a glucose level of 1015 with an anion gap of 19.5 and a carbon dioxide level of 19.5 and a potassium level 3.9 and a pH of 7.42 on her VBG. CBC demonstrated a white count of 14,900 and her urinalysis demonstrated 15 mg/dL ketones and 500 mg/dL glucose. Dr. Romel Murphy, emergency room physician evaluated the patient and obtained images including chest x-ray right femur x-rays pelvic x-ray right tib-fib x-ray and CT scan of the head. CT scan of her head and x-rays of her right femur pelvis and right tib-fib were all negative. Chest x-ray showed prominent interstitial lung changes and cardiomegaly but no pleural effusion and no consolidation. Because we had no open ICU beds available at the time the patient was managed in the emergency room overnight with IV insulin. She was initially given a bolus of 10 units of R and started on a insulin drip of 7 units of R per hour which has since been titrated down and is currently at 3 units an hour. Serial BMPs have been monitored. As of 5:00 this morning her anion gap was down to 14.2 with a glucose of 586. Her latest BMP from 8 AM demonstrates a normal anion gap of 9.3 with a glucose of 242. Potassium is down to 3.2. Patient has been receiving Ringer's lactate at 200 mL an hour since she presented to the emergency department. Patient is being admitted for treatment of DKA and UTI. Her other comorbidities include essential hypertension hyperlipidemia and chronic atrial fibrillation. She is chronically anticoagulated with apixaban. She receives metoprolol for her rate control. Review of Systems All systems reviewed & are unremarkable except as noted in HPI and below [facility] Medical History Amputated toe (Chronic) GANGRENOUS 2ND AND 3RD RIGHT TOES 11/14/17 Amputated toe of right foot (Chronic) Arthritis (Chronic) Atrial fibrillation (Chronic) Atrial fibrillation (Chronic 04/13/17) Bilateral lower leg cellulitis (Chronic 05/29/14) a. right worse than left Cataract (Chronic) mild; Fine [place] in macula-OD S/P SURGERY Cellulitis of leg (Chronic 10/31/14) Depression (Chronic) Depressive disorder (Chronic) Displaced bimalleolar fracture of right ankle (Chronic 05/29/14) DJD of shoulder (Chronic) a. 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 Left ankle 2012 Hearing loss (Chronic) Hearing loss (Chronic) BILATERAL AIDS difficulties w/ the hearing aids History of tobacco use (Chronic) a. 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-disordered breathing (Chronic) Restless legs syndrome (Chronic) Sciatica (Chronic) right; xray from 02/10 showed scattered spondylosis ant L4-5 on the left and mid lumbar scoliosis convex to the right Sensorineural hearing loss, bilateral (Chronic 05/24/17) Sleep apnea with use of continuous positive airway pressure (CPAP) (Chronic) Toe gangrene (Chronic) Transient ischemic attack (Chronic) Type 2 diabetes mellitus with diabetic neuropathy (Chronic 05/13/15) SEEN ENDOCRINE AT [facility] [place] Venous stasis (Chronic) Vitamin D deficiency (Chronic 05/07/15) Social History Smoking/Tobacco Use Status: Former Tobacco Use Alcohol Intake: never Drug use: Never Substance use type: does not use Current gender identity: female Do you feel safe at home: Yes Do you feel safe in your relationship?: Yes Meds Home Medications and Allergies Home Medications Medication Instructions Recorded Confirmed Type nystatin 0 TOPICAL BID #60 gm 06/27/17 05/23/19 History triamcinolone acetonide 2 - 4 gm TOPICAL BID PRN #80 gm 06/27/17 08/02/19 History acetaminophen [Tylenol] 650 mg PO Q4H PRN PRN tab 11/18/17 08/02/19 Rx fluoxetine [Prozac] 40 mg PO QAM #90 cap 02/13/18 08/02/19 Rx insulin syringe needleless 1 mL #120 syringe 04/10/18 05/23/19 Rx pen needle, diabetic 30 gauge x #300 ndl 04/10/18 05/23/19 Rx 5/16 furosemide 80 mg tablet 80 mg PO DAILY #90 tab-cap 05/22/18 08/02/19 Rx insulin regular human 100 unit/mL 15 unit SUB-Q AC #1000 unit MDD 75 07/13/18 08/02/19 Rx injection solution blood-glucose meter #1 each 11/14/18 05/23/19 Rx blood sugar diagnostic #400 each 11/29/18 05/23/19 Rx lancets 28 gauge #400 ea 11/29/18 05/23/19 Rx Humulin N NPH Insulin KwikPen 30 unit SUB-Q BID@0800,2000 #10 01/16/19 08/02/19 Rx vial clotrimazole 60 g TOPICAL TID #0 g 01/16/19 08/02/19 Rx magnesium oxide 800 mg PO BID #0 tab 01/16/19 08/02/19 Rx metoprolol tartrate 50 mg PO Q12H #60 tab 01/16/19 08/02/19 Rx vits A and D-white pet-lanolin 1 applic TOPICAL TID #0 gm 01/16/19 08/02/19 Rx zinc oxide 60 g TOPICAL TID #0 g 01/16/19 08/02/19 Rx atorvastatin 40 mg tablet 40 mg PO DAILY #90 tab-cap 02/20/19 08/02/19 Rx levothyroxine 50 mcg tablet 50 mcg PO DAILY #90 tab-cap 02/20/19 08/02/19 Rx losartan 100 mg tablet 100 mg PO QAM #90 tab-cap 02/20/19 08/02/19 Rx spironolactone 25 mg tablet 25 mg PO BID DIURETIC #180 tab 04/05/19 08/02/19 Rx apixaban 5 mg tablet 5 mg PO BID #180 tab-cap 05/01/19 08/02/19 Rx metformin 750 mg tablet,extended 750 mg PO DAILY #90 tab 05/01/19 08/02/19 Rx release 24 hr ropinirole 1 mg tablet 3 mg PO HS #150 tab 05/01/19 08/02/19 Rx nystatin 100,000 unit/gram topical 1 applic TOPICAL TID #60 gm 07/24/19 08/02/19 Rx powder Allergies Allergy/AdvReac Type Severity Reaction Status Date / Time No Known Allergies Allergy Verified 05/23/19 09:12 Exam Narrative Exam Narrative: Late middle-aged female who appears to be much older than her stated age of 68. She has plethoric appearance to her face. She is in no acute distress. She is alert and oriented to person place and time and circumstance. HEENT is remarkable for she has a ketone smell to her breath. Teeth are in poor repair. No oral pharyngeal exudates. Neck is supple nontender no JVD. No thyromegaly no lymphadenopathy. Carotid pulses are irregular and slightly tachycardic. No appreciable bruits. Lungs are clear to auscultation anteriorly. Posteriorly she has some fine bibasilar rales. No rhonchi or wheezes. Heart is irregularly irregular and slightly tachycardic with a soft grade 2/6 systolic ejection murmur over the left lower sternal border. No thrill heave or rub are appreciated. Abdomen soft and nontender. There is no rebound tenderness no guarding no bruits. Lower extremities reveal 1+ pedal and lower tibial edema. Legs have a dark hyperemic appearance consistent with peripheral vascular disease. She is missing the second and third digit of her right foot. Left foot is wrapped in an Dl wrap. Toes were warm and without cyanosis. Results Labs Result diagrams: 08/04/19 06:25 08/04/19 06:25 Labs: Laboratory Results - last 24 hr 08/02/19 08/02/19 08/02/19 23:40 23:40 23:40 WBC 14.91 H RBC 5.68 H Hgb 17.9 H Hct 52.3 H MCV 92.1 MCH 31.5 MCHC 34.2 RDW 13.2 Plt Count 253 MPV 11.4 H Immature Gran % 1.3 Neutrophils % 87.1 Lymphocytes % 6.8 Monocytes % 4.1 Eosinophils % 0.2 Basophils % 0.5 Absolute Neutrophils 12.99 H Absolute Lymphocytes 1.01 L Absolute Monocytes 0.61 Absolute Eosinophils 0.03 Absolute Basophils 0.07 Sodium 134 L Potassium 3.9 Chloride 95 L Carbon Dioxide 19.5 L Anion Gap 19.5 H BUN 25 H Creatinine 1.07 H Estimated GFR/1.73 m2 51.31 Glucose 1015 H* Calcium 9.7 Magnesium 2.1 Total Bilirubin 0.7 AST 43 H ALT 36 Alkaline Phosphatase 210 H Creatine Kinase 612 H Troponin I < 0.05 Total Protein 8.1 Albumin 4.0 Urine Color Urine Clarity Urine pH Ur Specific [place] Urine Protein Urine Ketones Urine Blood Urine Nitrite Urine Bilirubin Urine Urobilinogen Ur Leukocyte Esterase Urine RBC Urine WBC Ur Epithelial Cells Urine Crystals Urine Bacteria Urine Casts Urine Mucus Ur Culture Indicated? Urine Glucose Ethyl Alcohol 56.5 08/03/19 08/03/19 08/03/19 02:10 02:45 05:00 WBC RBC Hgb Hct MCV MCH MCHC RDW Plt Count MPV Immature Gran % Neutrophils % Lymphocytes % Monocytes % Eosinophils % Basophils % Absolute Neutrophils Absolute Lymphocytes Absolute Monocytes Absolute Eosinophils Absolute Basophils Sodium 139 Potassium 3.7 Chloride 101 Carbon Dioxide 23.8 Anion Gap 14.2 H BUN 19 H D Creatinine 0.92 Estimated GFR/1.73 m2 >= 60.00 Glucose 668 H* D 586 H* Calcium 8.9 Magnesium Total Bilirubin AST ALT Alkaline Phosphatase Creatine Kinase Troponin I Total Protein Albumin Urine Color Yellow Urine Clarity Sl cloudy Urine pH 5.5 Ur Specific [place] 1.010 Urine Protein 30 H Urine Ketones 15 H Urine Blood Moderate H Urine Nitrite Negative Urine Bilirubin Negative Urine Urobilinogen 0.2 Ur Leukocyte Esterase Negative Urine RBC 3-5 H Urine WBC 5-10 Ur Epithelial Cells Rare Urine Crystals Negative Urine Bacteria Moderate Urine Casts Negative Urine Mucus Negative Ur Culture Indicated? Yes Urine Glucose 500 H Ethyl Alcohol 08/03/19 08:05 WBC RBC Hgb Hct MCV MCH MCHC RDW Plt Count MPV Immature Gran % Neutrophils % Lymphocytes % Monocytes % Eosinophils % Basophils % Absolute Neutrophils Absolute Lymphocytes Absolute Monocytes Absolute Eosinophils Absolute Basophils Sodium 139 Potassium 3.2 L Chloride 104 Carbon Dioxide 25.7 Anion Gap 9.3 BUN 17 Creatinine 0.80 Estimated GFR/1.73 m2 >= 60.00 Glucose 242 H D Calcium 8.9 Magnesium Total Bilirubin AST ALT Alkaline Phosphatase Creatine Kinase Troponin I Total Protein Albumin Urine Color Urine Clarity Urine pH Ur Specific [place] Urine Protein Urine Ketones Urine Blood Urine Nitrite Urine Bilirubin Urine Urobilinogen Ur Leukocyte Esterase Urine RBC Urine WBC Ur Epithelial Cells Urine Crystals Urine Bacteria Urine Casts Urine Mucus Ur Culture Indicated? Urine Glucose Ethyl Alcohol Last Vital Signs Temp 36.7 C 08/02/19 23:18 Pulse 83 08/03/19 08:16 Resp 18 08/03/19 08:16 BP 127/61 08/03/19 08:16 Pulse Ox 94 L 08/03/19 05:16
[2019-08-03] MEDS: cefTRIAXone 1 GM/50 ML BAG IVPB (09:09)
[2019-08-03] MEDS: Insulin NPH-Human 300 UNITS/3 ML PEN 20 UNIT SC (09:54)
[2019-08-03] MEDS: FLUoxetine 20 MG CAP 40 MG PO (11:10)
[2019-08-03] MEDS: Acetaminophen 325 MG TAB PO (11:10)
[2019-08-03] MEDS: Metoprolol 50 MG TAB PO ×2 (11:13→21:57)
[2019-08-03] MEDS: Levothyroxine 50 MCG TAB PO (11:13)
[2019-08-03] MEDS: Losartan 50 MG TAB 100 MG PO (11:14)
[2019-08-03] MEDS: Apixaban 5 MG TAB PO ×2 (11:14→21:57)
[2019-08-03] MEDS: Potassium Chloride 20 MEQ TABCR 40 MEQ PO (11:16)
[2019-08-03] MEDS: Insulin Aspart 300 UNITS/3 ML PEN SC ×3 (12:10→21:58)
[2019-08-03] MEDS: Normal Saline Flush 10 ML SYR IVP (12:39)
[2019-08-03 12:55] LABS: Anion Gap 8.7 mmol/L (3-11); BUN 17 mg/dL (7-18); CO2 28.3 mmol/L (21.0-32.0); CREATININE 0.64 mg/dL (0.55-1.02); Calcium 8.8 mg/dL (8.5-10.1); Chloride 104 mmol/L (98-107); Glucose 212 mg/dL (74-106); Potassium 3.7 mmol/L (3.5-5.1); Sodium 141 mmol/L (136-145)
[2019-08-03 12:56] LABS: Creatine Kinase 1693 U/L (26-192)
[2019-08-03] MEDS: Nystatin POWDER 60 GM JAR TP ×2 (12:57→21:59)
[2019-08-03] MEDS: Normal Saline 1,000 ML 100 ML IV (15:42)
[2019-08-03] MEDS: Insulin Aspart 300 UNITS/3 ML PEN 10 UNITS SC (17:12)
--- NOTE | 2019-08-03 20:02 | PGE_ITS ---
Date of Service Date of service: 08/03/19 Time of Service: 20:02 Subjective Subjective Interval history since last seen: The patient appears to be doing better. She is off of insulin gtt, tolerating PO, and had been transitioned to basal bolus insulin. She is not showing signs of alcohol withdrawal at this time. She has dressing on her LLE - she cannot tell me why, but states that Dr Serrano put it on. It looks like an unna boot. Will consult Dr Serrano for dressing recommendations. Ok to transfer out of ICU to [facility] with basal bolus insulin and CIWA monitoring. Objective Objective Clinical Data: Abnormal lab results 08/02/19 08/02/19 08/02/19 Range/Units 23:40 23:40 23:40 WBC 14.91 H (4.4-10.8) k/cumm RBC 5.68 H (4.00-5.20) m/cumm Hgb 17.9 H (12.0-15.5) g/dL Hct 52.3 H (36.0-46.0) % MPV 11.4 H (8.0-11.0) fL Absolute Neutrophils 12.99 H (1.2-6.7) k/cumm Absolute Lymphocytes 1.01 L (1.2-3.4) k/cumm Sodium 134 L (136-145) mmol/L Potassium (3.5-5.1) mmol/L Chloride 95 L (98-107) mmol/L Carbon Dioxide 19.5 L (21.0-32.0) mmol/L Anion Gap 19.5 H (3-11) mmol/L BUN 25 H (7-18) mg/dL Creatinine 1.07 H (0.55-1.02) mg/dL Glucose 1015 H* (74-106) mg/dL AST 43 H (15-37) U/L Alkaline Phosphatase 210 H (46-116) U/L Creatine Kinase 612 H (26-192) U/L Urine Protein (Negative) mg/dL Urine Ketones (Negative) mg/dL Urine Blood (Negative) Urine RBC (0-2) HPF Urine Glucose (Negative) mg/dL 08/03/19 08/03/19 08/03/19 Range/Units 02:10 02:45 05:00 WBC (4.4-10.8) k/cumm RBC (4.00-5.20) m/cumm Hgb (12.0-15.5) g/dL Hct (36.0-46.0) % MPV (8.0-11.0) fL Absolute Neutrophils (1.2-6.7) k/cumm Absolute Lymphocytes (1.2-3.4) k/cumm Sodium (136-145) mmol/L Potassium (3.5-5.1) mmol/L Chloride (98-107) mmol/L Carbon Dioxide (21.0-32.0) mmol/L Anion Gap 14.2 H (3-11) mmol/L BUN 19 H D (7-18) mg/dL Creatinine (0.55-1.02) mg/dL Glucose 668 H* D 586 H* (74-106) mg/dL AST (15-37) U/L Alkaline Phosphatase (46-116) U/L Creatine Kinase (26-192) U/L Urine Protein 30 H (Negative) mg/dL Urine Ketones 15 H (Negative) mg/dL Urine Blood Moderate H (Negative) Urine RBC 3-5 H (0-2) HPF Urine Glucose 500 H (Negative) mg/dL 08/03/19 08/03/19 Range/Units 08:05 12:15 WBC (4.4-10.8) k/cumm RBC (4.00-5.20) m/cumm Hgb (12.0-15.5) g/dL Hct (36.0-46.0) % MPV (8.0-11.0) fL Absolute Neutrophils (1.2-6.7) k/cumm Absolute Lymphocytes (1.2-3.4) k/cumm Sodium (136-145) mmol/L Potassium 3.2 L (3.5-5.1) mmol/L Chloride (98-107) mmol/L Carbon Dioxide (21.0-32.0) mmol/L Anion Gap (3-11) mmol/L BUN (7-18) mg/dL Creatinine (0.55-1.02) mg/dL Glucose 242 H D 212 H (74-106) mg/dL AST (15-37) U/L Alkaline Phosphatase (46-116) U/L Creatine Kinase 1693 H (26-192) U/L Urine Protein (Negative) mg/dL Urine Ketones (Negative) mg/dL Urine Blood (Negative) Urine RBC (0-2) HPF Urine Glucose (Negative) mg/dL Vital Signs Temperature 36.6 C 08/03/19 15:50 Temperature Source Temporal Artery Scan 08/03/19 15:50 Pulse 68 08/03/19 18:46 Pulse 78 08/03/19 18:46 Respiratory Rate 16 08/03/19 18:46 Respiratory Effort 08/03/19 15:50 Respiratory Depth Normal 08/03/19 15:50 Respiratory Pattern Normal 08/03/19 15:50 Blood Pressure 138/64 08/03/19 18:46 Blood Pressure Mean 82 08/03/19 18:46 Blood Pressure Position Supine 08/03/19 10:20 Pulse Oximetry 94 L 08/03/19 18:46 Oxygen Delivery Method Room Air 08/03/19 15:50 Oxygen Flow Rate 0 08/03/19 15:50 Pain Level 10 08/03/19 11:10 Intake & Output 08/02/19 08/03/19 08/03/19 23:59 11:59 23:59 Intake Total 1105.884 / 2305.884 1200 / 2305.884 Output Total 225 / 225 Balance 880.884 / 2080.884 1200 / 2080.884 Weight 86.1 kg 83.2 kg Intake: IV 1105.884 / 1105.884 Oral 1200 / 1200 Output: Urine 225 / 225 Other: Urine Color Pale Urine Odor Strong Voiding Methods Incontinent Incontinent Laboratory Results WBC 14.91 k/cumm (4.4-10.8) H 08/02/19 23:40 RBC 5.68 m/cumm (4.00-5.20) H 08/02/19 23:40 Hgb 17.9 g/dL (12.0-15.5) H 08/02/19 23:40 Hct 52.3 % (36.0-46.0) H 08/02/19 23:40 MCV 92.1 fL (80-95) 08/02/19 23:40 MCH 31.5 pg (27.0-33.0) 08/02/19 23:40 MCHC 34.2 g/dL (32.0-36.0) 08/02/19 23:40 RDW 13.2 % (11.7-14.6) 08/02/19 23:40 Plt Count 253 x1000/uL (130-400) 08/02/19 23:40 MPV 11.4 fL (8.0-11.0) H 08/02/19 23:40 Immature Gran % 1.3 % 08/02/19 23:40 Neutrophils % 87.1 08/02/19 23:40 Lymphocytes % 6.8 08/02/19 23:40 Monocytes % 4.1 08/02/19 23:40 Eosinophils % 0.2 08/02/19 23:40 Basophils % 0.5 08/02/19 23:40 Absolute Neutrophils 12.99 k/cumm (1.2-6.7) H 08/02/19 23:40 Absolute Lymphocytes 1.01 k/cumm (1.2-3.4) L 08/02/19 23:40 Absolute Monocytes 0.61 k/cumm (0.11-0.7) 08/02/19 23:40 Absolute Eosinophils 0.03 k/cumm (0.0-0.7) 08/02/19 23:40 Absolute Basophils 0.07 k/cumm (0.0-0.2) 08/02/19 23:40 Sodium 141 mmol/L (136-145) 08/03/19 12:15 Potassium 3.7 mmol/L (3.5-5.1) 08/03/19 12:15 Chloride 104 mmol/L (98-107) 08/03/19 12:15 Carbon Dioxide 28.3 mmol/L (21.0-32.0) 08/03/19 12:15 Anion Gap 8.7 mmol/L (3-11) 08/03/19 12:15 BUN 17 mg/dL (7-18) 08/03/19 12:15 Creatinine 0.64 mg/dL (0.55-1.02) 08/03/19 12:15 Estimated GFR/1.73 m2 >= 60.00 (mL/min/1.73m2) 08/03/19 12:15 Glucose 212 mg/dL (74-106) H 08/03/19 12:15 Calcium 8.8 mg/dL (8.5-10.1) 08/03/19 12:15 Magnesium 2.1 mg/dL (1.8-2.4) 08/02/19 23:40 Total Bilirubin 0.7 mg/dL (0.2-1.0) 08/02/19 23:40 AST 43 U/L (15-37) H 08/02/19 23:40 ALT 36 U/L (14-59) 08/02/19 23:40 Alkaline Phosphatase 210 U/L (46-116) H 08/02/19 23:40 Creatine Kinase 1693 U/L (26-192) H 08/03/19 12:15 Troponin I < 0.05 ng/Ml (<0.06) 08/02/19 23:40 Total Protein 8.1 g/dL (6.4-8.2) 08/02/19 23:40 Albumin 4.0 g/dL (3.4-5.0) 08/02/19 23:40 Urine Color Yellow (Yellow) 08/03/19 02:10 Urine Clarity Sl cloudy (Clear) 08/03/19 02:10 Urine pH 5.5 (5-8) 08/03/19 02:10 Ur Specific [place] 1.010 (1.005-1.025) 08/03/19 02:10 Urine Protein 30 mg/dL (Negative) H 08/03/19 02:10 Urine Ketones 15 mg/dL (Negative) H 08/03/19 02:10 Urine Blood Moderate (Negative) H 08/03/19 02:10 Urine Nitrite Negative (Negative) 08/03/19 02:10 Urine Bilirubin Negative (Negative) 08/03/19 02:10 Urine Urobilinogen 0.2 EU/dL (Up TO 0.2) 08/03/19 02:10 Ur Leukocyte Esterase Negative (Negative) 08/03/19 02:10 Urine RBC 3-5 HPF (0-2) H 08/03/19 02:10 Urine WBC 5-10 HPF (0-5) 08/03/19 02:10 Ur Epithelial Cells Rare HPF (Negative) 08/03/19 02:10 Urine Crystals Negative HPF (Negative) 08/03/19 02:10 Urine Bacteria Moderate HPF (Negative) 08/03/19 02:10 Urine Casts Negative LPF (Negative) 08/03/19 02:10 Urine Mucus Negative (Negative) 08/03/19 02:10 Ur Culture Indicated? Yes 08/03/19 02:10 Urine Glucose 500 mg/dL (Negative) H 08/03/19 02:10 Ethyl Alcohol 56.5 mg/dL (<3) 08/02/19 23:40
[2019-08-03] MEDS: rOPINIRole 1 MG TAB 3 MG PO (21:56)
[2019-08-03] MEDS: Magnesium Oxide 400 MG TAB 800 MG PO (21:56)
[2019-08-03] MEDS: Atorvastatin 40 MG TAB PO (21:57)
[2019-08-03] MEDS: Insulin NPH-Human 300 UNITS/3 ML PEN 30 UNIT SC (21:57)
[2019-08-03] MEDS: THIAMINE 100 MG in Normal Saline 100 ML 200 MG IVPB (22:23)
--- NOTE | 2019-08-03 23:48 | NUR.NOTE ---
At approximately 2130 pt was taken from ICU room 222 and transferred to Med Surg room 230. 3 staff members moved pt from ICU bed to Med Surg bed safely. Pts VS were as follows: temp 37.5, HR 71, BP 124/71, RR 16, O2 96% RA. Finger stick was 246. 1999 and 2199 meds were given. Pt oriented to room and call balderas, pt left to rest. Bed alarms ON.
[2019-08-04 04:02] VITALS: BP 114/65; PULSE 78; RESP 19; TEMP 37; O2SAT 96
[2019-08-04] MEDS: Levothyroxine 50 MCG TAB PO (05:33)
[2019-08-04 07:03] LABS: Abs Immature Grans 0.05 k/cumm (0.0-0.09); Absolute Basophil Count 0.06 k/cumm (0.0-0.2); Absolute Eosinophil Count 0.38 k/cumm (0.0-0.7); Absolute Lymphocyte Count 2.36 k/cumm (1.2-3.4); Absolute Monocyte Count 0.83 k/cumm (0.11-0.7); Absolute Neutrophil Count 6.75 k/cumm (1.2-6.7); Basophils % 0.6; Eosinophils % 3.6; HCT 43.6 % (36.0-46.0); HGB 14.8 g/dL (12.0-15.5); Immature Grans % 0.5 %; Lymphocytes % 22.6; Mean Corp. HGB Concentration 33.9 g/dL (32.0-36.0); Mean Corpuscular Hemoglobin 32.1 pg (27.0-33.0); Mean Corpuscular Volume 94.6 fL (80-95); Mean Platelet Volume 11.3 fL (8.0-11.0); Neutrophils % 64.7; Platelet Count 232 x1000/uL (130-400); RBC 4.61 m/cumm (4.00-5.20); RBC Distribution Width 13.7 % (11.7-14.6); White Blood Cell Count 10.43 k/cumm (4.4-10.8)
[2019-08-04 07:17] LABS: Calculated LDL 75 mg/dL; Cholesterol 162 mg/dL (<200); HDL Cholesterol 44 mg/dL (40-60); Magnesium 1.6 mg/dL (1.8-2.4); Triglyceride 217 mg/dL (<150)
[2019-08-04 07:19] LABS: ALT 30 U/L (14-59); AST 54 U/L (15-37); Albumin 2.6 g/dL (3.4-5.0); Alkaline Phosphatase 110 U/L (46-116); Anion Gap 9.3 mmol/L (3-11); BUN 21 mg/dL (7-18); Bilirubin, Total 1.3 mg/dL (0.2-1.0); CO2 24.7 mmol/L (21.0-32.0); CREATININE 0.55 mg/dL (0.55-1.02); Chloride 103 mmol/L (98-107); Glucose 322 mg/dL (74-106); Sodium 137 mmol/L (136-145)
[2019-08-04 07:35] LABS: Creatine Kinase 661 U/L (26-192)
[2019-08-04 07:45] VITALS: BP 113/71; PULSE 89; RESP 16; TEMP 36.5; O2SAT 95
[2019-08-04] MEDS: Magnesium Oxide 400 MG TAB 800 MG PO ×2 (08:11→19:54)
[2019-08-04] MEDS: Apixaban 5 MG TAB PO ×2 (08:11→19:54)
[2019-08-04] MEDS: Losartan 50 MG TAB 100 MG PO (08:11)
[2019-08-04] MEDS: Nystatin POWDER 60 GM JAR TP ×3 (08:11→20:14)
[2019-08-04] MEDS: Multivitamin TAB 1 TAB PO (08:11)
[2019-08-04] MEDS: Thiamine 100 MG TAB PO (08:11)
[2019-08-04] MEDS: FLUoxetine 20 MG CAP 40 MG PO (08:11)
[2019-08-04] MEDS: Folic Acid 1 MG TAB PO (08:11)
[2019-08-04] MEDS: Insulin Aspart 300 UNITS/3 ML PEN 15 UNITS SC ×2 (08:12→12:11)
[2019-08-04] MEDS: Insulin Aspart 300 UNITS/3 ML PEN SC ×3 (08:12→21:54)
[2019-08-04] MEDS: Insulin NPH-Human 300 UNITS/3 ML PEN 30 UNIT SC ×2 (08:12→19:56)
[2019-08-04] MEDS: Normal Saline Flush 10 ML SYR IVP (08:13)
[2019-08-04] MEDS: cefTRIAXone 1 GM/50 ML BAG IVPB (08:13)
--- NOTE | 2019-08-04 08:35 | PDOC.CMIN ---
- If Service Date Differs Date of service: 08/04/19 Time of Service: 08:35 Care Management Initial Assess REASON FOR HOSPITALIZATION:: Diabetic Ketoacidosis PAST MEDICAL HISTORY/PAST SURGICAL HISTORY:: Medical History: Amputated toe (Chronic). GANGRENOUS. 2ND AND 3RD RIGHT TOES 11/14/17. Amputated toe of right foot (Chronic). Arthritis (Chronic). Atrial fibrillation (Chronic). Atrial fibrillation (Chronic 04/13/17). Bilateral lower leg cellulitis (Chronic 05/29/14). a. right worse than left. Cataract (Chronic). mild; Fine Drusen in macula-OD. S/P SURGERY. Cellulitis of leg (Chronic 10/31/14). Depression (Chronic). Depressive disorder (Chronic). Displaced bimalleolar fracture of right ankle (Chronic 05/29/14). DJD of shoulder (Chronic). a. on right. Elev transaminase/LDH (Chronic 01/09/13). Essential hypertension (Chronic 06/22/13). 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 Fracture of lumbar spine (Chronic 11/15/13). L3. Gout (Chronic 03/27/13). H/O fracture of ankle (Chronic). s. Left ankle 2011. Hearing loss (Chronic). Hearing loss (Chronic). BILATERAL AIDS. difficulties w/ the hearing aids. History of tobacco use (Chronic). a. quit in 1995 after approximately 30 pack years. Hyperlipidemia (Chronic). Hypertension (Chronic). Hypothyroidism (Chronic). Hypothyroidism (Chronic 01/09/13). Increased body mass index (Chronic). Insomnia (Chronic). 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 Morbid obesity (Chronic). 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 CPAP. Osteoarthritis (Chronic). right shoulder AC-DJD, Glenohumoral jt. DJD; Left knee-mild DJD; Left-severe DJD; Right-hip mild DJD. Otosclerosis (Chronic 10/14/14). Polycythemia (Chronic 03/08/17). Pulmonary hypertension (Chronic 04/13/17). Pulmonary hypertension due to sleep-disordered breathing (Chronic). Restless legs syndrome (Chronic). Sciatica (Chronic). right; xray from 02/10 showed scattered spondylosis ant L4-5 on the left and mid lumbar scoliosis convex to the right. 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 Sleep apnea with use of continuous positive airway pressure (CPAP) (Chronic). Toe gangrene (Chronic). Transient ischemic attack (Chronic). Type 2 diabetes mellitus with diabetic neuropathy (Chronic 05/13/15). SEEN [place] [facility] [place] Venous stasis (Chronic). Vitamin D deficiency (Chronic 05/07/15) PREVIOUS FUNCTIONAL STATUS/SOCIAL/FAMILY SUPPORTS:: Yuan resides with her Sascha in [place]. She states that she has no children, and that she has two cats and a dog whom are her children. Yuan does not work, and states that her is her primary support. She does not drive, and depends on for transportation. She is almost completely deaf, so CM used a tablet to ask questions. yuan can speak clearly to answer. CURRENT FUNCTIONAL STATUS:: Yuan was sitting up in a chair when CM met with her. She was pleasant and agreeable but communication was limited to writing on her tablet. She states she is feeling much better than when she first came to the hospital. She denies pain but states she has tolerable discomfort. Yuan stated that she would like to go home from the hospital but fears that wont be possible. She stated she wanted to go to the [facility] where her will be. ADVANCE DIRECTIVES:: COLST form - no AD Has patient been provided with information about the portal?: Yes Did the patient sign up for the portal?: No CODE STATUS:: DNR/DNI INSURANCE COVERAGE / FINANCIAL ISSUES:: Medicare. BS CURRENT HOME/COMMUNITY SERVICES/EQUIPMENT:: Meals on Wheels, Hearing aids PRIMARY CARE PHYSICIAN:: Jenna Rodriguez POTENTIAL DISCHARGE NEEDS:: Follow up with PCP and discharge plan of care PATIENT/FAMILY EDUCATION NEEDS:: Discharge plan, limitations, follow up plan, Ask Me Three ANTICIPATED BARRIERS TO DISCHARGE:: is intravenous therapy nurse and he is hospitalized also TRANSPORTATION:: via [facility] wheelchair van if she goes to SNF PLAN:: Yuan will likely go to the [facility] for rehab upon discharge. Her Sascha is scheduled to be transferred there on Tuesday. She will follow up with their plan of care. CM lindsey continue to support yuan and Valentino and their discharge planning needs.
[2019-08-04 09:12] LABS: Hemoglobin A1C > 14.0 % (3.8-5.6)
[2019-08-04] MEDS: Metoprolol 50 MG TAB PO ×2 (11:10→21:55)
[2019-08-04 12:05] VITALS: BP 120/68; PULSE 88; RESP 17; TEMP 36.6; O2SAT 95
--- NOTE | 2019-08-04 12:15 | IN_ITS ---
Date of service: 08/04/19 Time of Service: 10:45 PT Notes Visit Reasons: DKA, UTI Inpatient Physical Therapy Evaluation Date: 08/04/19 Referring Doctor: Willem Stone MD PT Orders: PT CONSULT: Safety Consult for D/C Precautions: Standard Patient Profile/Admitting Diagnosis: Orders received for this 68-year-old female who was suffering weakness and falls at home. Patient was taken to the emergency department where she was found to be in diabetic ketoacidosis, UTI, history of A. fib and history of PVD. Patient normally states that she uses a walker at home but is been very unable to stand while here. Patient also states that there has been an episode recently where she had a fall at home and was on the floor for several hours. PMHX: Medical History Amputated toe (Chronic) GANGRENOUS 2ND AND 3RD RIGHT TOES 11/14/17 Amputated toe of right foot (Chronic) Arthritis (Chronic) Atrial fibrillation (Chronic) Atrial fibrillation (Chronic 04/13/17) Bilateral lower leg cellulitis (Chronic 05/29/14) a. right worse than left Cataract (Chronic) mild; Fine Drusen in macula-OD S/P SURGERY Cellulitis of leg (Chronic 10/31/14) Depression (Chronic) Depressive disorder (Chronic) Displaced bimalleolar fracture of right ankle (Chronic 05/29/14) DJD of shoulder (Chronic) a. 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 Left ankle 2011 Hearing loss (Chronic) Hearing loss (Chronic) BILATERAL AIDS difficulties w/ the hearing aids History of tobacco use (Chronic) a. 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-disordered breathing (Chronic) Restless legs syndrome (Chronic) Sciatica (Chronic) right; xray from 02/10 showed scattered spondylosis ant L4-5 on the left and mid lumbar scoliosis convex to the right Sensorineural hearing loss, bilateral (Chronic 05/24/17) Sleep apnea with use of continuous positive airway pressure (CPAP) (Chronic) Toe gangrene (Chronic) Transient ischemic attack (Chronic) Type 2 diabetes mellitus with diabetic neuropathy (Chronic 05/13/15) SEEN ENDOCRINE AT [facility] [place] Venous stasis (Chronic) Vitamin D deficiency (Chronic 05/07/15) Social History/Home Situation: Patient lives at home normally in the care of her and herself Equipment Owned/DME: Front wheel walker Subjective: Patient is unable to hear and therefore a white board is used for communication. Patient states that she is incredibly painful through her upper body and legs. She states she feels she can barely move her legs Objective: Patient is sitting in recliner and is sound asleep upon this therapist entering the room. She is easily able to be aroused Mental Status: Well oriented alert to person place and time Pain: 6 out of 10 ROM: Right Upper Extremity: Within functional limits Left Upper Extremity: Within functional limits Right Lower Extremity: Within functional limits Left Lower Extremity: Within functional limits Strength: Right Upper Extremity: Grossly 4+ out of 5 patient describes pain Left Upper Extremity: Grossly 4+ out of 5 patient describes pain Right Lower Extremity: Grossly 4 out of 5 as patient releases contraction at every point assessed due to pain Left Lower Extremity: Grossly 4 out of 5 is patient releases contraction at every point assessed due to pain Bed Mobility/Transfers: Patient unable to be moved out of the recliner upon multiple attempts. Up to max assist was utilized and patient unwilling to attempt further motion due to pain Gait: Unable to assess Balance: Static Sitting: Good Dynamic Sitting: Good Static Standing: Not assessed Dynamic Standing: Not assessed Special Tests: Mobility Limitations Standardized Measure [facility]-P[facility] 6 clicks Basic Mobility Inpatient Short Form: Raw Score: 15 Standardized Score: 39.45 CMS Score: 57.7 CMS Modifier: CK Informed Consent/Education: Patient instructed in purpose of PT consult and plan of care. ASSESSMENT: Patient is a 68-year-old female with a history of chronic health conditions affecting function Admitted with generalized weakness and current falls Patient presents with the following impairment level findings: Inability to stand, weakness to the lower extremities, ambulation intolerance Pt will benefit from skilled therapy intervention in order to remedy their functional limitations and restore patient to a more appropriate and stable functional level. Impairments are contributing to the following functional limitations: AMPAC score 57.7% Patient is assessed as a moderate complexity initial evaluation 14535 based on the following: History: see above Examination: see above Presentation: Evolving Decision Making: Moderate based on impact score of 57.7% Goals: Goals X1 week 1. Supine-Sit independently 2. Sit-Supine independently 3. Sit-Stand independent up to front wheel walker 4. Stand-Sit independent up to front wheel walker 5. Bed-Chair independent up to front wheel walker 6. Gait up to 50 feet with standby assist in front wheel walker Plan of Care/Treatment Plan: 1-2x/day, 7 days/week x 1 week. Plan of care has been reviewed with the TELEVISION AND RADIO REPAIRER providing the service under Physical Therapy direction. Initiate Physical Therapy intervention for strengthening, bed mobility, transfers, gait, stairs, balance training, use of assistive device. DISCHARGE RECOMMENDATIONS: To home once medically stable and completing physical therapy goals TREATMENT CODE/TIME: Moderate complexity initial evaluation 51480, 15 minutes of direct billable care, 10:45-1100 [facility]
--- NOTE | 2019-08-04 12:54 | RESPIRATORY ---
Spoke with patient concerning sleep apnea and was told she does have this but doesn't use a machine.
[2019-08-04 15:40] VITALS: BP 122/79; PULSE 58; RESP 16; TEMP 37.2; O2SAT 96
--- NOTE | 2019-08-04 16:29 | PGE_ITS ---
Date of Service Date of service: 08/04/19 Time of Service: 16:29 Assessment and Plan Assessment and plan (1) Diabetic ketoacidosis associated with type 2 diabetes mellitus: Status: Acute Assessment and plan: DKA is resolved and she is on basal bolus insulin. Glucose levels are still not well controlled as evidenced by morning blood sugar in the 300s. She needs continued inpatient management of her diabetes in order to prevent her from going back into DKA when she is discharged. I have increased her NPH to 30 units twice a day and instead of giving her fixed doses of NovoLog with her meals put her on carb coverage at 1-5 ratio. She will still receive insulin resistance sliding scale for coverage of elevated sugars. Qualifiers: Diabetes mellitus complication detail: without coma Qualified Code(s): E11.10 - Type 2 diabetes mellitus with ketoacidosis without coma (2) UTI (urinary tract infection): Status: Acute Assessment and plan: Urine cultures growing greater 100,000 colonies of gram-negative rods. Sensitivity is pending as well as a final identification. She remained stable on Rocephin 1 g IV daily.. Qualifiers: Hematuria presence: without hematuria Urinary tract infection type: acute cystitis Qualified Code(s): N30.00 - Acute cystitis without hematuria (3) Atrial fibrillation: Status: Chronic Assessment and plan: Continue apixaban and her metoprolol. She remains in atrial fibrillation at a well-controlled rate in the 50s to 70s. Qualifiers: Atrial fibrillation type: unspecified chronic Qualified Code(s): I48.20 - Chronic atrial fibrillation, unspecified (4) Hypertension: Status: Chronic Assessment and plan: Continue her losartan and her metoprolol Qualifiers: Hypertension type: essential hypertension Qualified Code(s): I10 - Essential (primary) hypertension (5) Atherosclerotic peripheral vascular disease of extremity: Status: Acute Assessment and plan: Continue statins and blood pressure control and anticoagulation. Qualifiers: Laterality: bilateral Peripheral atherosclerosis artery type: [place] artery Peripheral atherosclerosis clinical manifestation: with intermittent claudication Peripheral atherosclerosis location: lower extremity Qualified Code(s): I70.213 - Atherosclerosis of [place] arteries of extremities with intermittent claudication, bilateral legs (6) Sleep apnea with use of continuous positive airway pressure (CPAP): Status: Chronic Assessment and plan: Continue CPAP at night Subjective Subjective Patient reports: no new complaints and feels better Interval history since last seen: DKA has resolved. She is still running high blood sugars in the morning at 313 and 277 at lunchtime. I have changed her insulin from program doses of 15 units of NovoLog with each meal to 1 that is more related to carb coverage at 1 unit per 5 g in addition to insulin resistance sliding scale. I have also increased her NPH to 30 units twice a day. She remains on Rocephin 1 g IV daily for UTI. Urine culture showing multiple gram-negative rods for which identification sensitivity is still pending. Exam Narrative Exam Narrative: Elderly female who is alert and oriented but very hard of hearing. She denies any acute complaints. Appetite is good. Lungs are clear to auscultation. Heart is irregularly irregular at a controlled rate. Legs are wrapped her left leg and foot is in an Unna boot. Objective Objective Clinical Data: Abnormal lab results 08/04/19 08/04/19 08/04/19 Range/Units 06:25 06:25 06:25 MPV 11.3 H (8.0-11.0) fL Absolute Neutrophils 6.75 H (1.2-6.7) k/cumm Absolute Monocytes 0.83 H (0.11-0.7) k/cumm BUN 21 H (7-18) mg/dL Glucose 322 H D (74-106) mg/dL Hemoglobin A1c (3.8-5.6) % Calcium 8.0 L (8.5-10.1) mg/dL Magnesium 1.6 L (1.8-2.4) mg/dL Total Bilirubin 1.3 H (0.2-1.0) mg/dL AST 54 H (15-37) U/L Creatine Kinase 661 H (26-192) U/L Total Protein 6.0 L (6.4-8.2) g/dL Albumin 2.6 L (3.4-5.0) g/dL Triglycerides 217 H (<150) mg/dL 08/04/19 Range/Units 06:25 MPV (8.0-11.0) fL Absolute Neutrophils (1.2-6.7) k/cumm Absolute Monocytes (0.11-0.7) k/cumm BUN (7-18) mg/dL Glucose (74-106) mg/dL Hemoglobin A1c > 14.0 H (3.8-5.6) % Calcium (8.5-10.1) mg/dL Magnesium (1.8-2.4) mg/dL Total Bilirubin (0.2-1.0) mg/dL AST (15-37) U/L Creatine Kinase (26-192) U/L Total Protein (6.4-8.2) g/dL Albumin (3.4-5.0) g/dL Triglycerides (<150) mg/dL Vital Signs Temperature 37.2 C 08/04/19 15:40 Temperature Source Tympanic 08/04/19 15:40 Pulse 58 L 08/04/19 15:40 Pulse Rhythm Irregular 08/04/19 15:51 Pulse 73 08/03/19 21:01 Respiratory Rate 16 08/04/19 15:40 Respiratory Effort Non-Labored 08/04/19 15:51 Respiratory Depth Normal 08/04/19 15:51 Respiratory Pattern Normal 08/04/19 15:51 Blood Pressure 122/79 08/04/19 15:40 Blood Pressure Mean 77 08/03/19 21:16 Blood Pressure Position Supine 08/03/19 10:20 Pulse Oximetry 96 08/04/19 15:40 Oxygen Delivery Method Room Air 08/04/19 15:40 Oxygen Flow Rate 0 08/04/19 15:40 Pain Level 0 08/04/19 15:40 Intake & Output 08/03/19 08/04/19 08/04/19 23:59 11:59 23:59 Intake Total 1200 / 2305.884 10 / 490 480 / 490 Balance 1200 / 2080.884 10 / 490 480 / 490 Weight 85.2 kg Intake: IV Oral 1200 / 1200 480 / 480 Other: Urine Color Yellow Comment Incontinent large amt of urine. incontinent Voiding Methods Incontinent Laboratory Results WBC 10.43 k/cumm (4.4-10.8) 08/04/19 06:25 RBC 4.61 m/cumm (4.00-5.20) 08/04/19 06:25 Hgb 14.8 g/dL (12.0-15.5) D 08/04/19 06:25 Hct 43.6 % (36.0-46.0) 08/04/19 06:25 MCV 94.6 fL (80-95) 08/04/19 06:25 MCH 32.1 pg (27.0-33.0) 08/04/19 06:25 MCHC 33.9 g/dL (32.0-36.0) 08/04/19 06:25 RDW 13.7 % (11.7-14.6) 08/04/19 06:25 Plt Count 232 x1000/uL (130-400) 08/04/19 06:25 MPV 11.3 fL (8.0-11.0) H 08/04/19 06:25 Immature Gran % 0.5 % 08/04/19 06:25 Neutrophils % 64.7 08/04/19 06:25 Lymphocytes % 22.6 08/04/19 06:25 Monocytes % 8.0 08/04/19 06:25 Eosinophils % 3.6 08/04/19 06:25 Basophils % 0.6 08/04/19 06:25 Absolute Neutrophils 6.75 k/cumm (1.2-6.7) H 08/04/19 06:25 Absolute Lymphocytes 2.36 k/cumm (1.2-3.4) 08/04/19 06:25 Absolute Monocytes 0.83 k/cumm (0.11-0.7) H 08/04/19 06:25 Absolute Eosinophils 0.38 k/cumm (0.0-0.7) 08/04/19 06:25 Absolute Basophils 0.06 k/cumm (0.0-0.2) 08/04/19 06:25 Sodium 137 mmol/L (136-145) 08/04/19 06:25 Potassium 4.0 mmol/L (3.5-5.1) 08/04/19 06:25 Chloride 103 mmol/L (98-107) 08/04/19 06:25 Carbon Dioxide 24.7 mmol/L (21.0-32.0) 08/04/19 06:25 Anion Gap 9.3 mmol/L (3-11) 08/04/19 06:25 BUN 21 mg/dL (7-18) H 08/04/19 06:25 Creatinine 0.55 mg/dL (0.55-1.02) 08/04/19 06:25 Estimated GFR/1.73 m2 >= 60.00 (mL/min/1.73m2) 08/04/19 06:25 Glucose 322 mg/dL (74-106) H D 08/04/19 06:25 Hemoglobin A1c > 14.0 % (3.8-5.6) H 08/04/19 06:25 Calcium 8.0 mg/dL (8.5-10.1) L 08/04/19 06:25 Magnesium 1.6 mg/dL (1.8-2.4) L 08/04/19 06:25 Total Bilirubin 1.3 mg/dL (0.2-1.0) H 08/04/19 06:25 AST 54 U/L (15-37) H 08/04/19 06:25 ALT 30 U/L (14-59) 08/04/19 06:25 Alkaline Phosphatase 110 U/L (46-116) 08/04/19 06:25 Creatine Kinase 661 U/L (26-192) H 08/04/19 06:25 Troponin I < 0.05 ng/Ml (<0.06) 08/02/19 23:40 Total Protein 6.0 g/dL (6.4-8.2) L 08/04/19 06:25 Albumin 2.6 g/dL (3.4-5.0) L 08/04/19 06:25 Triglycerides 217 mg/dL (<150) H 08/04/19 06:25 Total Cholesterol 162 mg/dL (<200) 08/04/19 06:25 LDL Cholesterol, Calc 75 mg/dL 08/04/19 06:25 HDL Cholesterol 44 mg/dL (40-60) 08/04/19 06:25 Urine Color Yellow (Yellow) 08/03/19 02:10 Urine Clarity Sl cloudy (Clear) 08/03/19 02:10 Urine pH 5.5 (5-8) 08/03/19 02:10 Ur Specific [place] 1.010 (1.005-1.025) 08/03/19 02:10 Urine Protein 30 mg/dL (Negative) H 08/03/19 02:10 Urine Ketones 15 mg/dL (Negative) H 08/03/19 02:10 Urine Blood Moderate (Negative) H 08/03/19 02:10 Urine Nitrite Negative (Negative) 08/03/19 02:10 Urine Bilirubin Negative (Negative) 08/03/19 02:10 Urine Urobilinogen 0.2 EU/dL (Up TO 0.2) 08/03/19 02:10 Ur Leukocyte Esterase Negative (Negative) 08/03/19 02:10 Urine RBC 3-5 HPF (0-2) H 08/03/19 02:10 Urine WBC 5-10 HPF (0-5) 08/03/19 02:10 Ur Epithelial Cells Rare HPF (Negative) 08/03/19 02:10 Urine Crystals Negative HPF (Negative) 08/03/19 02:10 Urine Bacteria Moderate HPF (Negative) 08/03/19 02:10 Urine Casts Negative LPF (Negative) 08/03/19 02:10 Urine Mucus Negative (Negative) 08/03/19 02:10 Ur Culture Indicated? Yes 08/03/19 02:10 Urine Glucose 500 mg/dL (Negative) H 08/03/19 02:10 Ethyl Alcohol 56.5 mg/dL (<3) 08/02/19 23:40
[2019-08-04 19:10] VITALS: BP 124/74; PULSE 71; RESP 17; TEMP 37.2; O2SAT 98
[2019-08-04] MEDS: Atorvastatin 40 MG TAB PO (19:54)
[2019-08-04] MEDS: rOPINIRole 1 MG TAB 2 MG PO (19:55)
[2019-08-04] MEDS: Acetaminophen 325 MG TAB PO (19:55)
[2019-08-04] MEDS: rOPINIRole 1 MG TAB 3 MG PO (21:55)
[2019-08-04 23:25] VITALS: BP 136/84; PULSE 62; RESP 17; TEMP 37.2; O2SAT 95
[2019-08-05 03:23] VITALS: BP 143/93; PULSE 65; RESP 18; TEMP 36.6; O2SAT 95
[2019-08-05] MEDS: Levothyroxine 50 MCG TAB PO (05:23)
[2019-08-05 07:01] LABS: Abs Immature Grans 0.04 k/cumm (0.0-0.09); Absolute Basophil Count 0.06 k/cumm (0.0-0.2); Absolute Eosinophil Count 0.35 k/cumm (0.0-0.7); Absolute Lymphocyte Count 2.02 k/cumm (1.2-3.4); Absolute Neutrophil Count 5.14 k/cumm (1.2-6.7); Basophils % 0.7; Eosinophils % 4.2; HGB 14.7 g/dL (12.0-15.5); Immature Grans % 0.5 %; Lymphocytes % 24.3; Mean Corp. HGB Concentration 34.2 g/dL (32.0-36.0); Mean Corpuscular Hemoglobin 32.3 pg (27.0-33.0); Mean Corpuscular Volume 94.5 fL (80-95); Monocytes % 8.4; Neutrophils % 61.9; Platelet Count 200 x1000/uL (130-400); RBC 4.55 m/cumm (4.00-5.20); RBC Distribution Width 13.5 % (11.7-14.6); White Blood Cell Count 8.31 k/cumm (4.4-10.8)
[2019-08-05 07:12] LABS: Anion Gap 7.3 mmol/L (3-11); BUN 18 mg/dL (7-18); CO2 25.7 mmol/L (21.0-32.0); CREATININE 0.49 mg/dL (0.55-1.02); Calcium 8.2 mg/dL (8.5-10.1); Chloride 101 mmol/L (98-107); Glucose 294 mg/dL (74-106); Potassium 4.2 mmol/L (3.5-5.1); Sodium 134 mmol/L (136-145)
[2019-08-05] MEDS: cefTRIAXone 1 GM/50 ML BAG IVPB (07:49)
[2019-08-05] MEDS: FLUoxetine 20 MG CAP 40 MG PO (07:49)
[2019-08-05] MEDS: Normal Saline Flush 10 ML SYR IVP (07:49)
[2019-08-05] MEDS: Magnesium Oxide 400 MG TAB 800 MG PO ×2 (07:50→20:47)
[2019-08-05] MEDS: Apixaban 5 MG TAB PO ×2 (07:50→20:47)
[2019-08-05] MEDS: Losartan 50 MG TAB 100 MG PO (07:50)
[2019-08-05] MEDS: Nystatin POWDER 60 GM JAR TP ×3 (07:50→20:47)
[2019-08-05] MEDS: Folic Acid 1 MG TAB PO (07:50)
[2019-08-05] MEDS: Thiamine 100 MG TAB PO (07:50)
[2019-08-05] MEDS: Multivitamin TAB 1 TAB PO (07:50)
[2019-08-05] MEDS: Insulin Aspart 300 UNITS/3 ML PEN SC ×8 (07:58→23:15)
[2019-08-05 07:59] VITALS: BP 162/92; PULSE 73; RESP 18; TEMP 37.1; O2SAT 96
[2019-08-05] MEDS: Insulin NPH-Human 300 UNITS/3 ML PEN 30 UNIT SC (07:59)
--- NOTE | 2019-08-05 08:57 | PDOC.CMPRO ---
- If Service Date Differs Date of service: 08/05/19 Time of Service: 08:57 Care Management Progress Note S/O: Madison was sitting up in a chair when CM met with her. She was pleasant and communicated well, with CM writing and Madison answering out loud. She is feeling better and agreeable to going to rehab tomorrow if a bed is available. CM has sent a referral to [facility] at her request. A: Madison is a 68 year old woman admitted on 08/03/2019 with DKA P:Madison will likely go to the [facility] for rehab upon discharge. Her Sascha is scheduled to be transferred there early this week. She will follow up with their plan of care. CM lindsey continue to support Madison and Valentino and their discharge planning needs.
[2019-08-05] MEDS: Metoprolol 50 MG TAB PO ×2 (10:08→23:16)
--- NOTE | 2019-08-05 10:32 | PT.INTREAT ---
Date of service: 08/05/19 Time of Service: 10:32 PT Notes Visit Reasons: DKA, UTI 08/05/19 SUBJECTIVE: Madison stating she has pain in the left LE from the knee down. She is unsure why she cannot put a lot of pressure on this leg. OBJECTIVE: Pt seated in recliner. Needs to use the commode. Agreeable to PT. TRANSFERS Sit to stand: Max x 2 to Stedy Stand to sit: Max x 2 to stedy GAIT: Unable Took in stedy lift x 2 minutes for weight shifts. Attempt marching in the stedy although pt unable to complete. THEREX: Light LE strengthening exericses performed in seated to her tolerance. See flow sheet. ASESSMENT: Pt participating well with UE to get herself into stedy. Limited weight bearing through the left LE noted while standing in the stedy. Pt will benefit from continued strengthening efforts to maximize mobility. PLAN: Continue current POC. Treatment time: 25 minutes [id number], [id number] Alisha Wiseman, POWER TRANSFORMER REPAIR SUPERVISOR
[2019-08-05 11:48] VITALS: BP 130/63; PULSE 67; RESP 17; TEMP 37; O2SAT 96
--- NOTE | 2019-08-05 15:17 | PGE_ITS ---
Date of Service Date of service: 08/05/19 Time of Service: 15:17 Assessment and Plan Assessment and plan (1) Diabetic ketoacidosis associated with type 2 diabetes mellitus: Status: Acute Assessment and plan: DKA has been resolved for couple days now. Blood sugars however remain significantly elevated requiring daily adjustments in her insulin dosage. This necessitates another inpatient day while we monitor her blood sugars in order to prevent her from going back into DKA. Qualifiers: Diabetes mellitus complication detail: without coma Qualified Code(s): E11.10 - Type 2 diabetes mellitus with ketoacidosis without coma (2) UTI (urinary tract infection): Status: Acute Assessment and plan: As noted above her urine culture grew E. coli which is pansensitive to all antibiotics tested. Therefore I am discontinuing her Rocephin and put her on Keflex. Qualifiers: Urinary tract infection type: acute cystitis Hematuria presence: without hematuria Qualified Code(s): N30.00 - Acute cystitis without hematuria (3) Atrial fibrillation: Status: Chronic Assessment and plan: Continue apixaban and her metoprolol. She remains in atrial fibrillation at a well-controlled rate in the 50s to 70s. Qualifiers: Atrial fibrillation type: unspecified chronic Qualified Code(s): I48.20 - Chronic atrial fibrillation, unspecified (4) Hypertension: Status: Chronic Assessment and plan: Continue her losartan and her metoprolol Qualifiers: Hypertension type: essential hypertension Qualified Code(s): I10 - Essential (primary) hypertension (5) Atherosclerotic peripheral vascular disease of extremity: Status: Acute Assessment and plan: Continue statins and blood pressure control and anticoagulation. Qualifiers: Peripheral atherosclerosis location: lower extremity Peripheral atherosclerosis artery type: [place] artery Peripheral atherosclerosis clinical manifestation: with intermittent claudication Laterality: bilateral Qualified Code(s): I70.213 - Atherosclerosis of [place] arteries of extremities with intermittent claudication, bilateral legs (6) Sleep apnea with use of continuous positive airway pressure (CPAP): Status: Chronic Assessment and plan: Continue CPAP at night Subjective Subjective Interval history since last seen: Urine culture came back positive for E. coli which was pansensitive. I discontinued her ceftriaxone and started on Keflex 500 mg twice a day. Her blood sugars however remain stubbornly elevated. They were 304 mg/dL this morning and in the mid 200s this afternoon. I have made a significant adjustment in both her basal and bolus insulin. I have upped her NPH to 50 units twice a day. I have also increased her carbohydrate coverage to 2 units per 5 g of carbohydrates. We will continue to use the insulin resistant sliding scale for coverage of elevated glucose readings. As far as discharge for anticipating that she will need to go to correction facility for short- term stay while her recovers from his total knee arthroplasty. Exam Narrative Exam Narrative: Elderly female who is alert and oriented but very hard of hearing. She denies any acute complaints. Appetite is good. Lungs are clear to auscultation. Heart is irregularly irregular at a controlled rate. Legs are wrapped her left leg and foot is in an [place] boot. Objective Objective Clinical Data: Abnormal lab results 08/03/19 08/05/19 Range/Units 02:10 06:45 Sodium 134 L (136-145) mmol/L Creatinine 0.49 L (0.55-1.02) mg/dL Glucose 294 H (74-106) mg/dL Calcium 8.2 L (8.5-10.1) mg/dL Urine Protein 30 H (Negative) mg/dL Urine Ketones 15 H (Negative) mg/dL Urine Blood Moderate H (Negative) Urine RBC 3-5 H (0-2) HPF Urine Glucose 500 H (Negative) mg/dL Vital Signs Temperature 37.0 C 08/05/19 11:48 Temperature Source Tympanic 08/05/19 11:48 Pulse 67 08/05/19 11:48 Pulse Rhythm Irregular 08/05/19 08:08 Pulse 73 08/03/19 21:01 Respiratory Rate 17 08/05/19 11:48 Respiratory Effort Non-Labored 08/05/19 08:08 Respiratory Depth Normal 08/05/19 08:08 Respiratory Pattern Normal 08/05/19 08:08 Blood Pressure 130/63 08/05/19 11:48 Blood Pressure Mean 77 08/03/19 21:16 Blood Pressure Position Supine 08/03/19 10:20 Pulse Oximetry 96 08/05/19 11:48 Oxygen Delivery Method Room Air 08/05/19 11:48 Oxygen Flow Rate 0 08/05/19 11:48 Pain Level 0 08/05/19 11:48 Intake & Output 08/04/19 08/05/19 08/05/19 23:59 11:59 23:59 Intake Total 1581 / 1641 490 / 490 Balance 1581 / 1641 490 / 490 Weight 84.6 kg Intake: IV 1101 / 1161 Oral 480 / 480 480 / 480 Other: Urine Color Yellow Yellow Urine Appearance Clear Urine Odor Normal None Comment Moderate amnt incontinent Stool Occult Blood Negative Stool Size Large Moderate Stool Characteristics Formed Soft Formed Brown Voiding Methods Incontinent Bedside Commode Laboratory Results WBC 8.31 k/cumm (4.4-10.8) 08/05/19 06:45 RBC 4.55 m/cumm (4.00-5.20) 08/05/19 06:45 Hgb 14.7 g/dL (12.0-15.5) 08/05/19 06:45 Hct 43.0 % (36.0-46.0) 08/05/19 06:45 MCV 94.5 fL (80-95) 08/05/19 06:45 MCH 32.3 pg (27.0-33.0) 08/05/19 06:45 MCHC 34.2 g/dL (32.0-36.0) 08/05/19 06:45 RDW 13.5 % (11.7-14.6) 08/05/19 06:45 Plt Count 200 x1000/uL (130-400) 08/05/19 06:45 MPV 11.0 fL (8.0-11.0) 08/05/19 06:45 Immature Gran % 0.5 % 08/05/19 06:45 Neutrophils % 61.9 08/05/19 06:45 Lymphocytes % 24.3 08/05/19 06:45 Monocytes % 8.4 08/05/19 06:45 Eosinophils % 4.2 08/05/19 06:45 Basophils % 0.7 08/05/19 06:45 Absolute Neutrophils 5.14 k/cumm (1.2-6.7) 08/05/19 06:45 Absolute Lymphocytes 2.02 k/cumm (1.2-3.4) 08/05/19 06:45 Absolute Monocytes 0.70 k/cumm (0.11-0.7) 08/05/19 06:45 Absolute Eosinophils 0.35 k/cumm (0.0-0.7) 08/05/19 06:45 Absolute Basophils 0.06 k/cumm (0.0-0.2) 08/05/19 06:45 Sodium 134 mmol/L (136-145) L 08/05/19 06:45 Potassium 4.2 mmol/L (3.5-5.1) 08/05/19 06:45 Chloride 101 mmol/L (98-107) 08/05/19 06:45 Carbon Dioxide 25.7 mmol/L (21.0-32.0) 08/05/19 06:45 Anion Gap 7.3 mmol/L (3-11) 08/05/19 06:45 BUN 18 mg/dL (7-18) 08/05/19 06:45 Creatinine 0.49 mg/dL (0.55-1.02) L 08/05/19 06:45 Estimated GFR/1.73 m2 >= 60.00 (mL/min/1.73m2) 08/05/19 06:45 Glucose 294 mg/dL (74-106) H 08/05/19 06:45 Hemoglobin A1c > 14.0 % (3.8-5.6) H 08/04/19 06:25 Calcium 8.2 mg/dL (8.5-10.1) L 08/05/19 06:45 Magnesium 1.6 mg/dL (1.8-2.4) L 08/04/19 06:25 Total Bilirubin 1.3 mg/dL (0.2-1.0) H 08/04/19 06:25 AST 54 U/L (15-37) H 08/04/19 06:25 ALT 30 U/L (14-59) 08/04/19 06:25 Alkaline Phosphatase 110 U/L (46-116) 08/04/19 06:25 Creatine Kinase 661 U/L (26-192) H 08/04/19 06:25 Troponin I < 0.05 ng/Ml (<0.06) 08/02/19 23:40 Total Protein 6.0 g/dL (6.4-8.2) L 08/04/19 06:25 Albumin 2.6 g/dL (3.4-5.0) L 08/04/19 06:25 Triglycerides 217 mg/dL (<150) H 08/04/19 06:25 Total Cholesterol 162 mg/dL (<200) 08/04/19 06:25 LDL Cholesterol, Calc 75 mg/dL 08/04/19 06:25 HDL Cholesterol 44 mg/dL (40-60) 08/04/19 06:25 Urine Color Yellow (Yellow) 08/03/19 02:10 Urine Clarity Sl cloudy (Clear) 08/03/19 02:10 Urine pH 5.5 (5-8) 08/03/19 02:10 Ur Specific [place] 1.010 (1.005-1.025) 08/03/19 02:10 Urine Protein 30 mg/dL (Negative) H 08/03/19 02:10 Urine Ketones 15 mg/dL (Negative) H 08/03/19 02:10 Urine Blood Moderate (Negative) H 08/03/19 02:10 Urine Nitrite Negative (Negative) 08/03/19 02:10 Urine Bilirubin Negative (Negative) 08/03/19 02:10 Urine Urobilinogen 0.2 EU/dL (Up TO 0.2) 08/03/19 02:10 Ur Leukocyte Esterase Negative (Negative) 08/03/19 02:10 Urine RBC 3-5 HPF (0-2) H 08/03/19 02:10 Urine WBC 5-10 HPF (0-5) 08/03/19 02:10 Ur Epithelial Cells Rare HPF (Negative) 08/03/19 02:10 Urine Crystals Negative HPF (Negative) 08/03/19 02:10 Urine Bacteria Moderate HPF (Negative) 08/03/19 02:10 Urine Casts Negative LPF (Negative) 08/03/19 02:10 Urine Mucus Negative (Negative) 08/03/19 02:10 Ur Culture Indicated? Yes 08/03/19 02:10 Urine Glucose 500 mg/dL (Negative) H 08/03/19 02:10 Ethyl Alcohol 56.5 mg/dL (<3) 08/02/19 23:40
[2019-08-05 15:30] VITALS: BP 117/75; PULSE 64; RESP 18; TEMP 37.4; O2SAT 95
[2019-08-05 19:40] VITALS: BP 140/86; PULSE 64; RESP 18; TEMP 37.4; O2SAT 95
[2019-08-05] MEDS: rOPINIRole 1 MG TAB 2 MG PO (20:46)
[2019-08-05] MEDS: Atorvastatin 40 MG TAB PO (20:47)
[2019-08-05] MEDS: Cephalexin 500 MG CAP PO (20:47)
[2019-08-05] MEDS: Insulin NPH-Human 300 UNITS/3 ML PEN 50 UNIT SC (20:48)
[2019-08-05 23:10] VITALS: PULSE 69; RESP 17; TEMP 37; O2SAT 93
[2019-08-05] MEDS: rOPINIRole 1 MG TAB 3 MG PO (23:16)
[2019-08-06 03:38] VITALS: BP 124/85; PULSE 63; RESP 18; TEMP 36.7; O2SAT 97
[2019-08-06] MEDS: Levothyroxine 50 MCG TAB PO (06:25)
[2019-08-06] MEDS: Losartan 50 MG TAB 100 MG PO (08:35)
[2019-08-06] MEDS: Multivitamin TAB 1 TAB PO (08:36)
[2019-08-06] MEDS: Thiamine 100 MG TAB PO (08:36)
[2019-08-06] MEDS: FLUoxetine 20 MG CAP 40 MG PO (08:36)
[2019-08-06] MEDS: Apixaban 5 MG TAB PO ×2 (08:37→19:47)
[2019-08-06] MEDS: Folic Acid 1 MG TAB PO (08:37)
[2019-08-06] MEDS: Nystatin POWDER 60 GM JAR TP ×3 (08:37→19:47)
[2019-08-06] MEDS: Magnesium Oxide 400 MG TAB 800 MG PO ×2 (08:37→19:47)
[2019-08-06] MEDS: Cephalexin 500 MG CAP PO ×2 (08:37→19:47)
[2019-08-06] MEDS: Insulin NPH-Human 300 UNITS/3 ML PEN 50 UNIT SC (08:38)
[2019-08-06] MEDS: Insulin Aspart 300 UNITS/3 ML PEN SC ×8 (08:39→21:54)
[2019-08-06 09:35] VITALS: BP 154/90; PULSE 61; RESP 18; TEMP 37.1; O2SAT 95
--- NOTE | 2019-08-06 09:46 | W.INDIABCONS ---
Date of service: 08/06/19 Time of Service: 14:15 Diabetes Inpatient Consult DESCRIPTION/ASSESSMENT: Appreciate diabetes consult for Madison Hoyos who was admitted with DKA and UTI. BMI 34 A1c greater than 14; past years 9-10 pretty consistently. She is well known from distant outpatient self management support. She is now on 50 and 30u NPH here as well as resistant insulin correction and 2 units per 5 grams carbohydrate. Blood sugars have been 178-304 yesterday and today with higher insulin:Carb initiated this morning. Madison states she takes 70/30 AM and PM, not NPH. She takes Regular insulin on a correction scale at ~8 units give or take. Denies hypoglycemia. States she monitors before each meal. She is willing to communicate, but the board is necessary for her to understand me. INTERVENTION: She has a new insulin regimen and will follow that for a day to assess efficacy and risk for hypoglycemia given it is a sizeable jump from her home regimen, both basal and bolus. Given her A1c, she clearly needs intensification of her insulin. PLAN: Will follow blood sugars and visit with Madison as possible prior to discharge. Time Spent in Nutritional Counseling and Treatment: 10 minutes on 2 occasions
[2019-08-06] MEDS: Metoprolol 50 MG TAB PO ×2 (10:05→21:54)
--- NOTE | 2019-08-06 10:46 | PT.INTREAT ---
Date of service: 08/06/19 Time of Service: 10:46 PT Notes Visit Reasons: DKA, UTI 08/06/19 SUBJECTIVE: Madison stating her left leg continues to be bothersome. She states she cannot walk. OBJECTIVE: Seated in recliner. Agreeable to PT treatment. TRANSFERS sit to stand: Max A x 2 Stand to sit: Max A x 2 GAIT: Unable THEREX: Attempt standing with FWW in front of patient Max A x 2 with pt unable to get to full standing position. Transitioned to use Stedy where she is able to get to full standing position. She performs weight shifts in the stedy. Unable to march. She performs 3 mini squats. Stood for a total of 2 minutes prior to needing to sit back down. She also performs seated LE strengthening exercises. See flow sheet for specifics. ASSESSMENT: Unclear why pt is not standing with the FWW. She is able to stand independently in the Stedy lift using UE support but is not utilizing the seat or support from the front of her legs. She does continues to complain of pain and she demonstrates weakness throughout LE's. She was encouraged to perform her seated exercises throughout the day. PLAN: Continue to progress weight bearing and use of FWW per POC. Treatment time: 25 minutes [id number], [id number] Alisha Wiseman PTA
--- NOTE | 2019-08-06 11:16 | PGE_ITS ---
Date of Service Date of service: 08/06/19 Time of Service: 11:16 Assessment and Plan Assessment and plan (1) Acute pain of left hip: Status: Acute Assessment and plan: Patient is status post fall in her bathroom in which her legs were splayed out around the toilet. From the angle in the picture that she chivo me it appears that her legs right greater than a 90 degree angle from each other. She has exquisite pain with internal and external rotation about the left femur head. I did not feel a crepitus and no palpable displacement but she is tender over the left femoral head. I will discuss with orthopedics how to best image this whether she needs a bone scan or CT scan or an MRI to rule out a fracture that was not picked up on her plain films. In the interim I will put her on some tramadol for her pain. Blood glucoses are still running high in spite of the fact that made insulin adjustment yesterday. I increased her NPH to 50 units twice a day beginning last night and she is supposed to be receiving 2 units per 5 g of carbohydrates with each meal and snack. Unfortunately the order went across as 2 units before meals and at bedtime with no insulin to carbohydrate ratio being given. She is still receiving insulin resistant dose sliding scale coverage for elevated glucose readings. Her glucoses are running in the mid 200s to 300 range. (2) Type 2 diabetes mellitus with diabetic neuropathy: Status: Chronic Assessment and plan: Blood sugars are still not adequately controlled. This in spite of the fact that I increased her NPH last night. I am to change her NPH schedule to a every 8 schedule and increase the total daily dose by 20%. She was getting NPH 50 units twice a day. I am a code of 40 units 3 times a day giving it at 6 AM, 2 PM and 8 PM. Furthermore I found that despite giving her a NovoLog insulin to carb ratio of 2 units per 5 g of carbohydrates the order came across is just 2 units with each meal. 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 twice daily through August 08, 2019. Qualifiers: Hematuria presence: without hematuria Urinary tract infection type: acute cystitis Qualified Code(s): N30.00 - Acute cystitis without hematuria (4) Atrial fibrillation: Status: Chronic Assessment and plan: Continue apixaban and her metoprolol. She remains in atrial fibrillation at a well-controlled rate in the 60s Qualifiers: Atrial fibrillation type: unspecified chronic Qualified Code(s): I48.20 - Chronic atrial fibrillation, unspecified (5) Hypertension: Status: Chronic Assessment and plan: Continue her losartan and her metoprolol Qualifiers: Hypertension type: essential hypertension Qualified Code(s): I10 - Essential (primary) hypertension (6) Atherosclerotic peripheral vascular disease of extremity: Status: Acute Assessment and plan: Continue statins and blood pressure control and anticoagulation. Qualifiers: Laterality: bilateral Peripheral atherosclerosis artery type: [place] artery Peripheral atherosclerosis clinical manifestation: with intermittent claudication Peripheral atherosclerosis location: lower extremity Qualified Code(s): I70.213 - Atherosclerosis of [place] arteries of extremities with intermittent claudication, bilateral legs (7) Sleep apnea with use of continuous positive airway pressure (CPAP): Status: Chronic Assessment and plan: Continue CPAP at night (8) Periprosthetic hip fracture: Status: Acute Assessment and plan: Since the patient was seen this morning we have obtained left femur x-ray and subsequent CT scan of the left hip. Dr. Alcala has reviewed the films and the patient has a nondisplaced fracture at the left greater trochanter extending along the anterior aspect of the prosthesis. According to Dr. Alcala this to be a nonsurgical approach to healing. This is delaying her [facility]. Qualifiers: Encounter type: initial encounter Qualified Code(s): M97.8XXA - Periprosthetic fracture around other internal prosthetic joint, initial encounter; Z96.649 - Presence of unspecified artificial hip joint (9) Discharge planning issues: Status: Acute Assessment and plan: Patient has been accepted to the [facility] once we have her pain under control from her left periprosthetic hip fracture Subjective Subjective Interval history since last seen: Physical therapy reports that the patient is refusing to participate in any therapy. Nurses reporting that she is maximal assist to transfer out of bed. Patient is complaining of severe pain in her left hip. Initial x-rays obtained on admission failed to show any fracture around the left hip prosthesis. I am in a consult with orthopedics as to the next imaging that should be done to verify that there is no fracture. I am not sure whether she could undergo an MRI with her left hip prosthesis. She may need a bone scan or CT scan through the pelvis. Been to work on improving her pain control so we can improve her amatory status. Case management has put a referral out to the [facility] while her recovers from his total knee arthroplasty. Exam Narrative Exam Narrative: Elderly female sitting up in a chair in no acute distress watching TV. She is very hard of hearing. Lungs are clear to auscultation. Heart is regular with occasional ectopic beats. Abdomen soft and nontender. Left hip is tender over the femoral head. With internal and external rotation it reproduces exquisite pain. Objective Objective Clinical Data: Vital Signs Temperature 37.1 C 08/06/19 09:35 Temperature Source Tympanic 08/06/19 09:35 Pulse 61 08/06/19 09:35 Pulse Rhythm Irregular 08/06/19 00:30 Pulse 73 08/03/19 21:01 Respiratory Rate 18 08/06/19 09:35 Respiratory Effort Non-Labored 08/06/19 00:30 Respiratory Depth Normal 08/06/19 00:30 Respiratory Pattern Normal 08/06/19 00:30 Blood Pressure 154/90 H 08/06/19 09:35 Blood Pressure Mean 77 08/03/19 21:16 Blood Pressure Position Supine 08/03/19 10:20 Pulse Oximetry 95 08/06/19 09:35 Oxygen Delivery Method Room Air 08/06/19 09:35 Oxygen Flow Rate 0 08/06/19 09:35 Pain Level 0 08/06/19 09:35 Intake & Output 08/05/19 08/05/19 08/06/19 11:59 23:59 11:59 Intake Total 240 / 730 490 / 730 720 / 720 Balance 240 / 730 490 / 730 720 / 720 Weight 84.6 kg 82.9 kg Intake: IV 10 Oral 240 / 720 480 / 720 720 / 720 Other: Urine Color Yellow Urine Appearance Clear Urine Odor None Stool Size Moderate Small Stool Characteristics Soft Soft Formed Brown Brown Voiding Methods Bedside Commode Laboratory Results WBC 8.31 k/cumm (4.4-10.8) 08/05/19 06:45 RBC 4.55 m/cumm (4.00-5.20) 08/05/19 06:45 Hgb 14.7 g/dL (12.0-15.5) 08/05/19 06:45 Hct 43.0 % (36.0-46.0) 08/05/19 06:45 MCV 94.5 fL (80-95) 08/05/19 06:45 MCH 32.3 pg (27.0-33.0) 08/05/19 06:45 MCHC 34.2 g/dL (32.0-36.0) 08/05/19 06:45 RDW 13.5 % (11.7-14.6) 08/05/19 06:45 Plt Count 200 x1000/uL (130-400) 08/05/19 06:45 MPV 11.0 fL (8.0-11.0) 08/05/19 06:45 Immature Gran % 0.5 % 08/05/19 06:45 Neutrophils % 61.9 08/05/19 06:45 Lymphocytes % 24.3 08/05/19 06:45 Monocytes % 8.4 08/05/19 06:45 Eosinophils % 4.2 08/05/19 06:45 Basophils % 0.7 08/05/19 06:45 Absolute Neutrophils 5.14 k/cumm (1.2-6.7) 08/05/19 06:45 Absolute Lymphocytes 2.02 k/cumm (1.2-3.4) 08/05/19 06:45 Absolute Monocytes 0.70 k/cumm (0.11-0.7) 08/05/19 06:45 Absolute Eosinophils 0.35 k/cumm (0.0-0.7) 08/05/19 06:45 Absolute Basophils 0.06 k/cumm (0.0-0.2) 08/05/19 06:45 Sodium 134 mmol/L (136-145) L 08/05/19 06:45 Potassium 4.2 mmol/L (3.5-5.1) 08/05/19 06:45 Chloride 101 mmol/L (98-107) 08/05/19 06:45 Carbon Dioxide 25.7 mmol/L (21.0-32.0) 08/05/19 06:45 Anion Gap 7.3 mmol/L (3-11) 08/05/19 06:45 BUN 18 mg/dL (7-18) 08/05/19 06:45 Creatinine 0.49 mg/dL (0.55-1.02) L 08/05/19 06:45 Estimated GFR/1.73 m2 >= 60.00 (mL/min/1.73m2) 08/05/19 06:45 Glucose 294 mg/dL (74-106) H 08/05/19 06:45 Hemoglobin A1c > 14.0 % (3.8-5.6) H 08/04/19 06:25 Calcium 8.2 mg/dL (8.5-10.1) L 08/05/19 06:45 Magnesium 1.6 mg/dL (1.8-2.4) L 08/04/19 06:25 Total Bilirubin 1.3 mg/dL (0.2-1.0) H 08/04/19 06:25 AST 54 U/L (15-37) H 08/04/19 06:25 ALT 30 U/L (14-59) 08/04/19 06:25 Alkaline Phosphatase 110 U/L (46-116) 08/04/19 06:25 Creatine Kinase 661 U/L (26-192) H 08/04/19 06:25 Troponin I < 0.05 ng/Ml (<0.06) 08/02/19 23:40 Total Protein 6.0 g/dL (6.4-8.2) L 08/04/19 06:25 Albumin 2.6 g/dL (3.4-5.0) L 08/04/19 06:25 Triglycerides 217 mg/dL (<150) H 08/04/19 06:25 Total Cholesterol 162 mg/dL (<200) 08/04/19 06:25 LDL Cholesterol, Calc 75 mg/dL 08/04/19 06:25 HDL Cholesterol 44 mg/dL (40-60) 08/04/19 06:25 Urine Color Yellow (Yellow) 08/03/19 02:10 Urine Clarity Sl cloudy (Clear) 08/03/19 02:10 Urine pH 5.5 (5-8) 08/03/19 02:10 Ur Specific [place] 1.010 (1.005-1.025) 08/03/19 02:10 Urine Protein 30 mg/dL (Negative) H 08/03/19 02:10 Urine Ketones 15 mg/dL (Negative) H 08/03/19 02:10 Urine Blood Moderate (Negative) H 08/03/19 02:10 Urine Nitrite Negative (Negative) 08/03/19 02:10 Urine Bilirubin Negative (Negative) 08/03/19 02:10 Urine Urobilinogen 0.2 EU/dL (Up TO 0.2) 08/03/19 02:10 Ur Leukocyte Esterase Negative (Negative) 08/03/19 02:10 Urine RBC 3-5 HPF (0-2) H 08/03/19 02:10 Urine WBC 5-10 HPF (0-5) 08/03/19 02:10 Ur Epithelial Cells Rare HPF (Negative) 08/03/19 02:10 Urine Crystals Negative HPF (Negative) 08/03/19 02:10 Urine Bacteria Moderate HPF (Negative) 08/03/19 02:10 Urine Casts Negative LPF (Negative) 08/03/19 02:10 Urine Mucus Negative (Negative) 08/03/19 02:10 Ur Culture Indicated? Yes 08/03/19 02:10 Urine Glucose 500 mg/dL (Negative) H 08/03/19 02:10 Ethyl Alcohol 56.5 mg/dL (<3) 08/02/19 23:40
[2019-08-06 11:26] VITALS: BP 136/79; PULSE 61; RESP 18; TEMP 37.2; O2SAT 95
--- NOTE | 2019-08-06 12:52 | DI.RAD_ITS ---
EXAM: XR HIP LT AP LAT ONLY INDICATION: left hip pain. COMPARISON: LEFT HIP COMPLETE from 10/04/2008 SACRUM ONLY from 11/05/2015 LUMBAR SPINE COMPLETE from 11/05/2015 XR PELVIS AP from 08/03/2019 XR TIB/FIB RT from 08/03/2019 XR FEMUR RT from 08/03/2019 TECHNIQUE: 2D digital imaging was performed. FINDINGS: There is a fracture seen best on the lateral view involving the proximal femoral shaft. Skin folds are seen in this location on the AP view. The prosthesis appears unchanged in alignment. The bones appear osteoporotic. IMPRESSION: Nondisplaced fracture of the proximal femoral shaft which may be in the intertrochanteric or subtroch anteric region.
--- NOTE | 2019-08-06 12:53 | DI.RAD_ITS ---
EXAM: XR FEMUR LT INDICATION: eval L hip/femur pain. COMPARISON: No exams were available for comparison TECHNIQUE: 2D digital imaging was performed. FINDINGS: The bones appear osteoporotic. There is a fracture seen best on the lateral view of the proximal fe mur which is nondisplaced. Degenerative changes are seen at the knee. No fractures are seen distall y. There is no dislocation of the total hip prosthesis. IMPRESSION: Nondisplaced fracture of the proximal femur.
--- NOTE | 2019-08-06 13:57 | DI.CT_ITS ---
EXAM: CT LOWER EXTREMITY LT WO CLINICAL HISTORY: LEFT PERIPROSTHETIC HIP FRACTURE TECHNIQUE: Noncontrast COMPARISON: XR HIP LT AP LAT ONLY from 08/06/2019 FINDINGS: There is a total left hip prosthesis, which creates mild artifact. There is a nondisplaced fracture through the region of the greater trochanter. The fracture extends along the anterolateral aspect of the femur. The lesser trochanter does not appear involved. There is no evidence of periprosthetic lucency or dislocation. There is some edema in the lateral subcutaneous fat. No hematoma is seen. There is a large quantity of stool in the rectum. IMPRESSION: Nondisplaced fracture at the greater trochanter and extending along the anterior aspect of the prosth esis.
[2019-08-06] MEDS: traMADol 50 MG TAB PO (14:41)
[2019-08-06] MEDS: Insulin NPH-Human 300 UNITS/3 ML PEN 40 UNIT SC ×2 (14:49→21:56)
--- NOTE | 2019-08-06 14:53 | PT.INNT ---
Date of service: 08/06/19 Time of Service: 14:53 PT Notes Visit Reasons: DKA, UTI 08/06/19 Hold on PT this afternoon. Will wait for ortho recommendations regarding L hip nondisplaced fracture. Alisha Wiseman, SENIOR CUSTOMER SERVICE REPRESENTATIVE
--- NOTE | 2019-08-06 15:08 | PHARADMIT ---
Admission Pharmacy Clinical Review DKA, UTI Code Status DNR/DNI Current Weight 82.9 kg Renally Cleared and Narrow Therapeutic Index Meds Crcl ~90 mL/min using adjusted body weight current meds okay QTc Value / Action Taken QTc 466 BP Control, Fever BP 136/79 afebrile Electrolytes reviewed Na 134 DVT Prophylaxis pt is on apixaban Opiate Usage / Scheduled Bowel Regimen Ordered prn/prn Plt/SCr for Heparin / Enoxaparin plt 200 SCr 0.49 INR for Warfarin n/a H/H stable, WBC/Bands h/h 14.7/43.0 Antibiotic appropriateness cephalexin Cultures and Sensitivities urine culture grew E.coli; sensitivities avialable Surgical ABX d/c within 24 hr n/a DM control / Insulin Dosing BG 294 scheduled insulin aspart and humulin, sliding scale insulin Heart Failure (Check EF%) (JESSIE's, B-Block, Diuretics) lisinopril, metoprolol IV to PO Switch n/a Home Meds Reviewed separate admin of magnesium oxide from levothyroxine Home Meds Not Ordered clotrimazole, furosemide, insulin regular, metformin, spironolactone, triamcinolone, Adeline+D, zinc oxide Comments ortho consult ordered due to femur fracture
[2019-08-06 16:18] VITALS: BP 142/84; PULSE 74; RESP 16; TEMP 37.5; O2SAT 95
--- NOTE | 2019-08-06 16:42 | PDOC.CMPRO ---
- If Service Date Differs Date of service: 08/06/19 Time of Service: 16:42 Care Management Progress Note S/O: Madison was lying in bed when CM met with her. She has been accepted at [facility] and was supposed to be transferred today, however additional imaging was done that shows she has a hip fracture. This was not apparent before because it is close to the area where she had previously had surgery. Dr. Alcala has determined that surgery is not indicated so she will be transferred to [facility] tomorrow for 4-6 weeks of rehab. A: Madison is a 68 year old woman admitted on 08/03/2019 with DKA P:Madison will likely go to [facility] for rehab tomorrow. Her Sascha was to be transferred there today and they will share a room. She will follow up with their plan of care. CM lindsey continue to support Madison and her discharge planning needs.
--- NOTE | 2019-08-06 18:29 | W.PODCONSULT ---
Date of service: 08/06/19 Time of Service: 18:29 History of Present Illness History of Present Illness Chief Complaint: Ulceration posterior aspect left ankle Narrative: Madison is well-known to me. She is a poorly controlled diabetic who presented several weeks ago with a ulceration on the posterior aspect of her left ankle. She had been receiving wound care consisting of debridement, Unna boot dressings weekly. The ulcer was closing and there was no signs of infection on her last office visit. Unfortunately, she was home alone and fell in the bathroom sustaining a nondisplaced fracture of her left hip. [facility] Medical History Amputated toe (Chronic) GANGRENOUS 2ND AND 3RD RIGHT TOES 11/14/17 Amputated toe of right foot (Chronic) Arthritis (Chronic) Atrial fibrillation (Chronic) Atrial fibrillation (Chronic 04/13/17) Bilateral lower leg cellulitis (Chronic 05/29/14) a. right worse than left Cataract (Chronic) mild; Fine Drusen in macula-OD S/P SURGERY Cellulitis of leg (Chronic 10/31/14) Depression (Chronic) Depressive disorder (Chronic) Displaced bimalleolar fracture of right ankle (Chronic 05/29/14) DJD of shoulder (Chronic) a. 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 Left ankle 2011 Hearing loss (Chronic) Hearing loss (Chronic) BILATERAL AIDS difficulties w/ the hearing aids History of tobacco use (Chronic) a. 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-disordered breathing (Chronic) Restless legs syndrome (Chronic) Sciatica (Chronic) right; xray from 02/10 showed scattered spondylosis ant L4-5 on the left and mid lumbar scoliosis convex to the right Sensorineural hearing loss, bilateral (Chronic 05/24/17) Sleep apnea with use of continuous positive airway pressure (CPAP) (Chronic) Toe gangrene (Chronic) Transient ischemic attack (Chronic) Type 2 diabetes mellitus with diabetic neuropathy (Chronic 05/13/15) SEEN ENDOCRINE AT [facility] [place] Venous stasis (Chronic) Vitamin D deficiency (Chronic 05/07/15) Surgical History Amputation RIGHT SECOND AND THIRD TOES DUE TO DIABETIC ULCERS WITH CELLULITIS;11/14/17 DR. MAI Colonoscopy - MAC (~2003) Extraction of cataract 04/15/17 DR. ARRIETA; LEFT EYE 04/29/17 DR. ARRIETA; RIGHT EYE PROCEDURES REPAIR OF INTESTINE NEC puncture during colonoscopy ACHILLOTENOTOMY L Achilles tendon repair Family History Mother Neoplasm LUNG Father Heart disease Brother Heart disease Sister No problems noted. Grandfather Heart disease Grandfather Heart disease Grandmother Diabetes Grandmother Diabetes Sister No problems noted. Sister No problems noted. Sister Diabetes Sister No problems noted. Brother No problems noted. Brother No problems noted. Social History Smoking/Tobacco Use Status: Former Tobacco Use Alcohol Intake: never Drug use: Never Substance use type: does not use Current gender identity: female Do you feel safe at home: Yes Do you feel safe in your relationship?: Yes Exam Narrative Exam Narrative: Madison is resting comfortably in her room. She is hard of hearing but with some effort communicates effectively. The Unna boot dressing is removed from her left lower extremity. She has a wound at the distal aspect of her left Achilles tendon which appears clean and is showing signs of granulation. No erythema or cellulitis is appreciated. She tends to suffer from chronic peripheral edema but her left lower extremity is in good shape having had the Unna boot compression dressings on for the last 3 weeks. Both lower extremities the feet are warm to the touch, there are chronic venous stasis changes appreciated to the skin. Her toenails are fungal but are well-groomed. There were no findings of DVT. She does suffer from significant diabetic peripheral neuropathy. Muscle groups of 5 out of 5 on the right lower extremity she has limitation in motion left lower extremity due to hip fracture.\ Impressions: Diabetic wound posterior distal aspect left leg over the Achilles tendon, grade 2 Plan: Madison is at high risk for heel wounds due to neuropathy and I will request heel protectors while she is in bed. The wound on the posterior left ankle should be cleansed daily with Anasept and a bordered Mepilex dressing applied. I will be happy to reassess her at weeks end if she is still in-house. Results Last Vital Signs Temp 37.5 C 08/06/19 16:18 Pulse 74 08/06/19 16:18 Resp 16 08/06/19 16:18 BP 142/84 H 08/06/19 16:18 Pulse Ox 95 08/06/19 16:18 Labs Result diagrams: 08/05/19 06:45 08/05/19 06:45
--- NOTE | 2019-08-06 19:12 | OCONE_ITS ---
Date of service: 08/06/19 Time of Service: 12:41 History of Present Illness History of Present Illness Chief Complaint: Left hip pain Narrative: Madison is a 68yo female with multiple medical comorbidities. She fell 3 days ago and was unable to get up on her own. She was brought to the ED at [facility] and diagnosed with DKA and electrolyte abnormalities. At the time she complained of right leg pain. However, during her admission, while her medical issues were improving, she complained of increasing left hip pain and inability to bear weight. I was consulted by Dr. Stone for the left hip pain preventing mobilization. Madison has been able to stand briefly, albeit with some pain. She denies any new numbness or tinglng. She has had pain with trying to move the leg, as in repositioning in the bed or chair. She has had a hip replacement on the left side. She feels the pain is deep and lateral, although she grabs the whole area when describing. Consults Consult date: 08/06/19 Requesting physician: Willem Stone Consult Reason Left hip pain Assessment and Plan Assessment and plan (1) Periprosthetic hip fracture: Status: Acute Assessment and plan: Madison is a 68yo unhealthy female who had a fall 3 days ago. X-ray and CT confirms a periprosthetic left hip fracture, [place] [employer]. This appears stable and doesn't suggest that the component has loosened from the femur no that the stem is disconnecte from the shaft. At this point, I don't think this needs surgery. It will be important to check another x-ray in a few weeks once Madison has been able ot mobilize. I would encourage WBAT with assistive devices. She should be placing some weight on each arm when she attempts standing or ambulation. Motion should not be pushed about the left hip. She should avoid laying on the left hip. This will hurt but I expect it t o get better with 6 weeks of cautious and conservative mobilization. Due to her significant weakness, ongoing medical issues, poor bone quality, and no apparent stem loosening on xray, I would treat this conservatively. I will see her in the office in another 2-3 weeks with repeat x-ray. Qualifiers: Encounter type: initial encounter Qualified Code(s): M97.8XXA - Periprosthetic fracture around other internal prosthetic joint, initial encounter; Z96.649 - Presence of unspecified artificial hip joint Review of Systems All systems reviewed & are unremarkable except as noted in HPI and below [facility] Medical History Amputated toe (Chronic) GANGRENOUS 2ND AND 3RD RIGHT TOES 11/14/17 Amputated toe of right foot (Chronic) Arthritis (Chronic) Atrial fibrillation (Chronic) Atrial fibrillation (Chronic 04/13/17) Bilateral lower leg cellulitis (Chronic 05/29/14) a. right worse than left Cataract (Chronic) mild; Fine Drusen in macula-OD S/P SURGERY Cellulitis of leg (Chronic 10/31/14) Depression (Chronic) Depressive disorder (Chronic) Displaced bimalleolar fracture of right ankle (Chronic 05/29/14) DJD of shoulder (Chronic) a. 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 Left ankle 2011 Hearing loss (Chronic) Hearing loss (Chronic) BILATERAL AIDS difficulties w/ the hearing aids History of tobacco use (Chronic) a. 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-disordered breathing (Chronic) Restless legs syndrome (Chronic) Sciatica (Chronic) right; xray from 02/10 showed scattered spondylosis ant L4-5 on the left and mid lumbar scoliosis convex to the right Sensorineural hearing loss, bilateral (Chronic 05/24/17) Sleep apnea with use of continuous positive airway pressure (CPAP) (Chronic) Toe gangrene (Chronic) Transient ischemic attack (Chronic) Type 2 diabetes mellitus with diabetic neuropathy (Chronic 05/13/15) SEEN ENDOCRINE AT [facility] Venous stasis (Chronic) Vitamin D deficiency (Chronic 05/07/15) Surgical History Amputation RIGHT SECOND AND THIRD TOES DUE TO DIABETIC ULCERS WITH CELLULITIS;11/14/17 DR. MAI Colonoscopy - MAC (~2003) Extraction of cataract 04/15/17 DR. ARRIETA; LEFT EYE 04/29/17 DR. ARRIETA; RIGHT EYE PROCEDURES REPAIR OF INTESTINE NEC puncture during colonoscopy ACHILLOTENOTOMY L Achilles tendon repair Family History Mother Neoplasm LUNG Father Heart disease Brother Heart disease Sister No problems noted. Grandfather Heart disease Grandfather Heart disease Grandmother Diabetes Grandmother Diabetes Sister No problems noted. Sister No problems noted. Sister Diabetes Sister No problems noted. Brother No problems noted. Brother No problems noted. Social History Smoking/Tobacco Use Status: Former Tobacco Use Alcohol Intake: never Drug use: Never Substance use type: does not use Current gender identity: female Do you feel safe at home: Yes Do you feel safe in your relationship?: Yes Exam Narrative Exam Narrative: Resting comfortably in the hospital bed. Notable chronic changes are seen to the anterior skin of the hip. No ecchymosis. No appreciable swelling. Pain to palpation over the greater trochanter. In the resting positiong she does allow about 10 degrees of external rotation and 10 degrees of internal rotation without significant pain. If I gently try to increase this motion arc, she is able to tolerate it but with some more pain. This is worsened if she tries to move it. She is unable to show active hip flexion. She denies pain with palpation of the anterior thigh or left knee. Mild edema in the leg. Faintly palpable DP pulse. Results Last Vital Signs Temp 37.5 C 08/06/19 16:18 Pulse 74 08/06/19 16:18 Resp 16 08/06/19 16:18 BP 142/84 H 08/06/19 16:18 Pulse Ox 95 08/06/19 16:18 Labs Result diagrams: 08/05/19 06:45 08/05/19 06:45 Imaging Imaging Studies: XR of the left hip and femur shows a minimally displaced fracture of the greater trochanter with some extension anteriorly, primarily seenon the lateral film. CT of the left hip shows this same fracture. It appears to involve the greater trochanter. It moves anteriorly but doesn't seem to disconnect the medial calcar from the shaft. No apparent subsidence of alexander component. No luncecy around the stem.
[2019-08-06 19:17] VITALS: BP 120/78; PULSE 68; RESP 18; TEMP 36.3; O2SAT 94
[2019-08-06] MEDS: rOPINIRole 1 MG TAB 2 MG PO (19:47)
[2019-08-06] MEDS: Atorvastatin 40 MG TAB PO (19:47)
[2019-08-06] MEDS: Cholecalciferol (Vitamin D3) 400 UNIT TAB PO (19:47)
[2019-08-06] MEDS: rOPINIRole 1 MG TAB 3 MG PO (21:54)
[2019-08-06 23:52] VITALS: BP 132/82; PULSE 54; RESP 18; TEMP 36.8; O2SAT 95
[2019-08-07 04:04] VITALS: BP 110/68; PULSE 44; RESP 18; TEMP 37; O2SAT 96
[2019-08-07] MEDS: Levothyroxine 50 MCG TAB PO (05:53)
[2019-08-07] MEDS: Insulin NPH-Human 300 UNITS/3 ML PEN 40 UNIT SC (05:54)
[2019-08-07 07:15] VITALS: BP 134/84; PULSE 51; RESP 16; TEMP 36.6; O2SAT 95
[2019-08-07] MEDS: Insulin Aspart 300 UNITS/3 ML PEN SC ×4 (07:54→12:13)
[2019-08-07] MEDS: Magnesium Oxide 400 MG TAB 800 MG PO (07:55)
[2019-08-07] MEDS: FLUoxetine 20 MG CAP 40 MG PO (07:57)
[2019-08-07] MEDS: Cholecalciferol (Vitamin D3) 400 UNIT TAB PO (07:57)
[2019-08-07] MEDS: Cephalexin 500 MG CAP PO (07:57)
[2019-08-07] MEDS: Folic Acid 1 MG TAB PO (07:57)
[2019-08-07] MEDS: Thiamine 100 MG TAB PO (07:58)
[2019-08-07] MEDS: Multivitamin TAB 1 TAB PO (07:58)
[2019-08-07] MEDS: Apixaban 5 MG TAB PO (07:58)
[2019-08-07] MEDS: Losartan 50 MG TAB 100 MG PO (09:39)
[2019-08-07] MEDS: Nystatin POWDER 60 GM JAR TP (09:40)
[2019-08-07] MEDS: Calcitonin-Salmon, Synthetic 3.7 ML BTL NS (09:40)
--- NOTE | 2019-08-07 10:59 | PTTR_ITS ---
Date of service: 08/07/19 Time of Service: 10:59 PT Notes Visit Reasons: DKA, UTI 08/07/19 SUBJECTIVE: Madison stating she is doing okay today. She needs to use the commode. OBJECTIVE: Seated in recliner. Agreeable to PT treatment. TRANSFERS: Sit to stand: Max x 2 to Stedy lift WBAT L Stand to sit: Max x 2 GAIT: Unable. Utilized Stedy lift to transfer to and from the commode. THEREX: Light LE strengthening with right LE. Avoid ROM and strengthening on the left side. She also performs UE strengthening to her tolerance. See flow sheet. ASSESSMENT: Pt able to participate with transfers utilizing UE to Stedy lift although this continues to be max A x 2. Defer all ROM and strengthening with the left LE due to hip fracture. PLAN: Continue working on transfer training as she is able to tolerate. Treatment time: 20 minutes [id number] Alisha Wiseman, [employer]EC[employer]
[2019-08-07 11:09] VITALS: BP 118/74; PULSE 54; RESP 16; TEMP 36.7; O2SAT 95
--- NOTE | 2019-08-07 16:58 | CMDISCH_ITS ---
- If Service Date Differs Date of service: 08/07/19 Time of Service: 16:58 LACE Index Scoring Tool - Questions: Length of Stay (in days): 4 - 6 Acuity (Admit via E.D.?): Yes Comorbidities: Cerebrovascular Disease, Diabetes w/o Complication E.D. Visits: 2 - Answers: Total Score: 11 Risk of Readmission: High Risk Care Management Discharge Reason for Hospitalization: Diabetic Ketoacidosis Discharge Plan: [facility] for a short, skilled stay prior to returning home. She transported by [employer], coordinated by CM. She will follow up with her PCP, as recommended. Patient/Family Education Needs: Review discharge instructions with pt and [facility] staff regarding activity levels and medication, discussion of self care including Ask Me Three and goals of care. Services Needed at Discharge: Care Home Facility ([facility]), Transportation ([employer])
--- NOTE | 2019-08-07 19:06 | DSE_ITS ---
Date of service: 08/07/19 Time of Service: 19:07 DS: Diagnosis Discharge Diagnosis (1) Diabetic ketoacidosis associated with type 2 diabetes mellitus: Status: Acute Asessment and Plan: Patient presented with a blood sugar of greater than 1000. She had about 5 days of med noncompliance, not taking her insulin. She was also imbibing in alcohol during the time her , Sascha, was in the hospital for a total knee arthroplasty. She received an insulin infusion and IV fluids with resolution of her blood sugars. She is restarted on her usual outpatient regimen slightly upward adjusted. (2) Periprosthetic hip fracture: Status: Acute Asessment and Plan: Patient began to complain of some left hip discomfort. She is not sure about when she fell or injured her left hip. The initial x- rays taken in the emergency room did not show a fracture. A CT scan of the left hip revealed a periprosthetic fracture. She was seen by Dr. Alcala who felt this was not something that needed an operation. She is weightbearing as tolerated. Follow-up with Dr. Alcala as an outpatient in 2 weeks. (3) UTI (urinary tract infection): Status: Acute Asessment and Plan: Diagnosed with a urinary tract infection. She was treated with oral Keflex. Antibiotics discontinued at the time of discharge. Discharge Plan Disposition Patient Disposition: SNF (LEVEL 1) [facility] Condition: Improving Discharge Details Chief Complaint: Orthopedic Reason For Visit: DKA, UTI Admit Date/Time: 08/03/19 09:47 Admit Provider: Willem Stone Attending Provider: Willem Stone Primary Care Provider: Jenna Rodriguez ED Provider: Romel Murphy [facility] Course Hospital Course: This is a 68-year-old woman admitted on 08/03/2023 markedly elevated blood sugar and urinary tract infection. She developed severe weakness and fell off the toilet in her own home and what was presumed to be a somewhat innocent fall. In the emergency room she had a blood sugar of 1015, anion gap 14.2, pH 7.42. Diagnostic imaging in the ER was all negative. She was started on an insulin infusion in the emergency room. Glucose came down to 242 overnight. She was treated for urinary tract infection with Kelflex, and monitored for signs of alcohol withdrawal syndrome which was negative. Her medical condition stabilized but she continued to have some left-sided hip pain. A CT of the left hip showed a periprosthetic fracture. Dr. Andi Alcala was consulted from orthopedics. He felt this was a stable fracture and a nonoperative approach was warranted. She is weightbearing as tolerated. Heart rate on her last 24 hours was somewhat low in the 40s to 50s. She was as ymptomatic with this. Her metoprolol dose was decreased to 25 mg twice daily. She is transferred to the [facility] for continued rehabilitation from the left hip periprosthetic fracture. Home Meds and New Rx's Prescriptions: New tramadol 50 mg Tablet 50 - 100 mg PO Q4H PRN PRN (Reason: pain) Qty: 60 RF: 0 Continued (DME) blood-glucose meter misc See Dose Instructions .ROUTE .MEDSUPPLY Qty: 1 RF: 0 (DME) lancets 28 gauge misc 1 ea Miscellaneous TID & PRN Qty: 400 RF: 12 (DME) Blood Glucose Test strip See Dose Instructions .ROUTE .MEDSUPPLY Qty: 400 RF: 5 furosemide 80 mg tablet 80 mg PO DAILY Qty: 90 RF: 5 triamcinolone acetonide 80 GM ointment 2 - 4 gm Topical BID PRNQty: 80 RF: 2 nystatin 60 GM powder 0 Topical BID Qty: 60 RF: 12 fluoxetine [Prozac] 40 MG capsule 40 mg PO QAM Qty: 90 RF: 4 (DME) insulin syringe needleless [BD Insulin Syringe Slip Tip] 1 mL syringe 1 ea Miscellaneous BID Qty: 120 RF: 12 (DME) Pen Needle 30 gauge x 5/16 needle 1 ea Miscellaneous QID Qty: 300 RF: 6 Humulin R Regular U-100 Insuln 100 unit/mL solution 15 unit Sub-Q AC MDD 75 Qty: 1000 RF: 11 atorvastatin 40 mg tablet 40 mg PO DAILY Qty: 90 RF: 12 levothyroxine 50 mcg tablet 50 mcg PO DAILY Qty: 90 RF: 12 losartan [Cozaar] 100 mg tablet 100 mg PO QAM Qty: 90 RF: 4 spironolactone 25 mg tablet 25 mg PO BID DIURETIC Qty: 180 RF: 3 ropinirole 1 mg tablet 3 mg PO HS Qty: 150 RF: 12 metformin [Glucophage XR] 750 mg tablet extended release 24 hr 750 mg PO DAILY Qty: 90 RF: 4 Eliquis 5 mg tablet 5 mg PO BID Qty: 180 RF: 12 nystatin 100,000 unit/gram powder 1 applic topical TID Qty: 60 RF: 5 acetaminophen [Tylenol] 325 MG tablet 650 mg PO Q4H PRN PRN (Reason: Pain) RF: 0 zinc oxide 20 % Ointment 60 g topical TID Qty: 0 RF: 0 clotrimazole 1 % Cream 60 g topical TID Qty: 0 RF: 0 vits A and D-white pet-lanolin Ointment 1 applic topical TID Qty: 0 RF: 0 magnesium oxide 400 MG tablet 800 mg PO BID Qty: 0 RF: 0 Changed metoprolol tartrate 50 mg Tablet 25 mg PO Q12H Qty: 60 RF: 0 Humulin N NPH Insulin KwikPen 100 unit/mL (3 mL) insulin pen 40 unit Sub-Q BID@0800,2000 Qty: 10 RF: 6 Discharge Instructions Instructions: Hyperosmolar Hyperglycemic State (DC), Hip Fracture (GEN) Stand Alone Forms: Nursing Discharge Form Referrals: Jenna Rodriguez MD, [place] [Primary Care Provider] - 08/13/19 9:20 am Activity:: Activity as Tolerated Equipment/Supplies:: Walker Diet:: Carb Counting Discharge Orders Discharge Orders: Discharge Order (Routine); Ordered 08/07/19 Ordered By: Leandro Nevarez Discharge Data Discharge Date/Time-TO BE ENTERED AT DEPARTURE: 08/07/19 13:09 DS: Summary Status at Discharge Functional status at discharge: uses cane/walker Overall status at discharge: patient is not back to baseline Mental Status: mental status grossly normal Speech and Movement: speech and movement normal Mood: congruent mood Affect: normal affect Time Spent with Patient providing and/or coordinating discharge services: Greater than 30 minutes Exam Narrative Exam Narrative: Exam on the day of discharge demonstrated severe hard of hearing. I was able to communicate primarily by writing on a white board. She was pleasant and smiling. She had limited use of the left leg because of some pain. She had no respiratory difficulty. Her lungs were clear her heart sounds were regular. Her abdomen was soft and nontender. Psych Mental Status: mental status grossly normal Speech and Movement: speech and movement normal Mood: congruent mood Affect: normal affect DS: Data Vitals/I&O Vitals and I&O: Vital Signs Temperature 36.7 C 08/07/19 11:09 Temperature Source Tympanic 08/07/19 11:09 Pulse 54 L 08/07/19 11:09 Pulse Rhythm Irregular 08/07/19 09:54 Pulse 73 08/03/19 21:01 Respiratory Rate 16 08/07/19 11:09 Respiratory Effort Non-Labored 08/07/19 09:54 Respiratory Depth Normal 08/07/19 09:54 Respiratory Pattern Normal 08/07/19 09:54 Blood Pressure 118/74 08/07/19 11:09 Blood Pressure Mean 77 08/03/19 21:16 Blood Pressure Position Supine 08/03/19 10:20 Pulse Oximetry 95 08/07/19 11:09 Oxygen Delivery Method Room Air 08/07/19 11:09 Oxygen Flow Rate 0 08/07/19 11:09 Pain Level 0 08/07/19 11:09 Intake & Output 08/06/19 08/07/19 08/07/19 23:59 11:59 23:59 Intake Total 230 / 950 440 / 440 Balance 230 / 950 440 / 440 Weight 83.8 kg Intake: IV Oral 220 / 940 440 / 440 Other: Urine Color Yellow Yellow Urine Appearance Clear Clear Urine Odor Normal Stool Size Large Stool Characteristics Soft Formed Brown Voiding Methods Diaper Incontinent Incontinent [facility] Medical History Amputated toe (Chronic) GANGRENOUS 2ND AND 3RD RIGHT TOES 11/14/17 Amputated toe of right foot (Chronic) Arthritis (Chronic) Atrial fibrillation (Chronic) Atrial fibrillation (Chronic 04/13/17) Bilateral lower leg cellulitis (Chronic 05/29/14) a. right worse than left Cataract (Chronic) mild; Fine Drusen in macula-OD S/P SURGERY Cellulitis of leg (Chronic 10/31/14) Depression (Chronic) Depressive disorder (Chronic) Displaced bimalleolar fracture of right ankle (Chronic 05/29/14) DJD of shoulder (Chronic) a. 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 Left ankle 2011 Hearing loss (Chronic) Hearing loss (Chronic) BILATERAL AIDS difficulties w/ the hearing aids History of tobacco use (Chronic) a. 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-disordered breathing (Chronic) Restless legs syndrome (Chronic) Sciatica (Chronic) right; xray from 02/10 showed scattered spondylosis ant L4-5 on the left and mid lumbar scoliosis convex to the right Sensorineural hearing loss, bilateral (Chronic 05/24/17) Sleep apnea with use of continuous positive airway pressure (CPAP) (Chronic) Toe gangrene (Chronic) Transient ischemic attack (Chronic) Type 2 diabetes mellitus with diabetic neuropathy (Chronic 05/13/15) SEEN ENDOCRINE AT [facility] [place] Venous stasis (Chronic) Vitamin D deficiency (Chronic 05/07/15) Surgical History Amputation RIGHT SECOND AND THIRD TOES DUE TO DIABETIC ULCERS WITH CELLULITIS;11/14/17 DR. MAI Colonoscopy - MAC (~2003) Extraction of cataract 04/15/17 DR. ARRIETA; LEFT EYE 04/29/17 DR. ARRIETA; RIGHT EYE PROCEDURES REPAIR OF INTESTINE NEC puncture during colonoscopy ACHILLOTENOTOMY L Achilles tendon repair Family History Mother Neoplasm LUNG Father Heart disease Brother Heart disease Sister No problems noted. Grandfather Heart disease Grandfather Heart disease Grandmother Diabetes Grandmother Diabetes Sister No problems noted. Sister No problems noted. Sister Diabetes Sister No problems noted. Brother No problems noted. Brother No problems noted. Social History Smoking/Tobacco Use Status: Former Tobacco Use Alcohol Intake: never Drug use: Never Substance use type: does not use Current gender identity: female Do you feel safe at home: Yes Do you feel safe in your relationship?: Yes
--- NOTE | 2019-08-13 13:31 | INDS_ITS ---
Date of service: 08/10/19 PT Notes Visit Reasons: DKA, UTI PT Inpatient Discharge Summary Date:08/10/2019 Dates of Service: 08/04/2019 through 08/07/2019 Referring Doctor: Willem Stone MD PT Orders: PT CONSULT: Safety Consult for D/C Precautions: Standard Patient Profile/Admitting Diagnosis: Orders received for this 68-year-old female who was suffering weakness and falls at home. Patient was taken to the emergency department where she was found to be in diabetic ketoacidosis, UTI, history of A. fib and history of PVD. Patient normally states that she uses a walker at home but is been very unable to stand while here. Patient also states that there has been an episode recently where she had a fall at home and was on the floor for several hours. PMHX: Medical History Amputated toe (Chronic) GANGRENOUS 2ND AND 3RD RIGHT TOES 11/14/17 Amputated toe of right foot (Chronic) Arthritis (Chronic) Atrial fibrillation (Chronic) Atrial fibrillation (Chronic 04/13/17) Bilateral lower leg cellulitis (Chronic 05/29/14) a. right worse than left Cataract (Chronic) mild; Fine Drusen in macula-OD S/P SURGERY Cellulitis of leg (Chronic 10/31/14) Depression (Chronic) Depressive disorder (Chronic) Displaced bimalleolar fracture of right ankle (Chronic 05/29/14) DJD of shoulder (Chronic) a. 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 Left ankle 2012 Hearing loss (Chronic) Hearing loss (Chronic) BILATERAL AIDS difficulties w/ the hearing aids History of tobacco use (Chronic) a. 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-disordered breathing (Chronic) Restless legs syndrome (Chronic) Sciatica (Chronic) right; xray from 02/10 showed scattered spondylosis ant L4-5 on the left and mid lumbar scoliosis convex to the right Sensorineural hearing loss, bilateral (Chronic 05/24/17) Sleep apnea with use of continuous positive airway pressure (CPAP) (Chronic) Toe gangrene (Chronic) Transient ischemic attack (Chronic) Type 2 diabetes mellitus with diabetic neuropathy (Chronic 05/13/15) [place] [facility] [place]ous stasis (Chronic) Vitamin D deficiency (Chronic 05/07/15) Social History/Home Situation: Patient lives at home normally in the care of her and herself Equipment Owned/DME: Front wheel walker Subjective: NT Objective: NT Mental Status: NT Pain: NT ROM: Right Upper Extremity: Within functional limits Left Upper Extremity: Within functional limits Right Lower Extremity: Within functional limits Left Lower Extremity: Within functional limits Strength: Right Upper Extremity: Grossly 4+ out of 5 patient describes pain Left Upper Extremity: Grossly 4+ out of 5 patient describes pain Right Lower Extremity: Grossly 4 out of 5 as patient releases contraction at every point assessed due to pain Left Lower Extremity: Grossly 4 out of 5 is patient releases contraction at every point assessed due to pain Bed Mobility/Transfers: Sit to stand max assist of 2 Stand to sit max assist of 2 Gait: Unable to assess. STEDY lift only from bed to bedside commode Balance: Static Sitting: Good Dynamic Sitting: Good Static Standing: Not assessed Dynamic Standing: Not assessed ASSESSMENT: Patient is a 68-year-old female with a history of chronic health conditions affecting function. Admitted with generalized weakness and current falls. Patient presents with the following impairment level findings: Inability to stand, weakness to the lower extremities, ambulation intolerance. Impairments are contributing to the following functional limitations: AMPAC score 57.7%. Goals: Goals X1 week 1. Supine-Sit independently NOT MET 2. Sit-Supine independently NOT MET 3. Sit-Stand independent up to front wheel walker NOT MET 4. Stand-Sit independent up to front wheel walker NOT MET 5. Bed-Chair independent up to front wheel walker NOT MET 6. Gait up to 50 feet with standby assist in front wheel walker NOT MET DISCHARGE RECOMMENDATIONS: Patient will benefit from half-way facility placement for continued skilled physical therapy services in order to progress mobility level, strength, and balance. TREATMENT CODE/TIME: NC. Thank you very much for this referral. Cindy Aaron PT, DPT, CLT [facility] Inpatient PT at [facility]
== END 2019-08-07 13:09 | disposition skilled nursing facility (03) | DRG 637 ==
LOC: ER 08-03 09:56 → ICU 08-03 10:26 → MS 08-03 21:00
PROVIDERS: Emergency Medicine; Internal Medicine; Admitting Provider Internal Medicine; Emergency Provider Emergency Medicine; PCP Family Medicine; Visit Provider Family Medicine
DX: E11.10 Type 2 diabetes mellitus with ketoacidosis without coma (principal); S72.115A Nondisplaced fracture of greater trochanter of left femur, initial encounter for closed fracture; M97.02XA Periprosthetic fracture around internal prosthetic left hip joint, initial encounter; N39.0 Urinary tract infection, site not specified; L97.829 Non-pressure chronic ulcer of other part of left lower leg with unspecified severity; T38.3X6A Underdosing of insulin and oral hypoglycemic [antidiabetic] drugs, initial encounter; W18.11XA Fall from or off toilet without subsequent striking against object, initial encounter; E87.6 Hypokalemia; B96.20 Unspecified Escherichia coli [E. coli] as the cause of diseases classified elsewhere; M25.552 Pain in left hip; E11.51 Type 2 diabetes mellitus with diabetic peripheral angiopathy without gangrene; E11.42 Type 2 diabetes mellitus with diabetic polyneuropathy; Z72.89 Other problems related to lifestyle; E03.9 Hypothyroidism, unspecified; H91.93 Unspecified hearing loss, bilateral; F32.9 Major depressive disorder, single episode, unspecified; I10 Essential (primary) hypertension; G47.33 Obstructive sleep apnea (adult) (pediatric); G25.81 Restless legs syndrome; I48.91 Unspecified atrial fibrillation; Z79.01 Long term (current) use of anticoagulants; Z79.4 Long term (current) use of insulin; Z71.3 Dietary counseling and surveillance; E11.622 Type 2 diabetes mellitus with other skin ulcer
CPT/HCPCS: 36415; 36416; 51701; 73552; 80048; 80053; 80061; 82550; 82947; 82962; 87077; 93005; 96361; 96365; 96366; 96372; 96374; 97110; 97162; 97530; 99222; 99223; 99232; 99233; 99239; 99253; 99285; NC; 70450; 71046; 72170; 73502; 73590; 73700; 80320; 81003; 81015; 83036; 83735; 84484; 85025; 87086; 87186; 93010; J0696; J3490

== ENCOUNTER 2019-08-09 13:54 | Outpatient (REF) | payer MEDICARE, BC, SELFPAY ==
[2019-08-09 15:28] LABS: ALT 55 U/L (14-59); AST 53 U/L (15-37); Albumin 2.8 g/dL (3.4-5.0); Alkaline Phosphatase 131 U/L (46-116); Anion Gap 10.7 mmol/L (3-11); BUN 19 mg/dL (7-18); Bilirubin, Total 1.1 mg/dL (0.2-1.0); CO2 24.3 mmol/L (21.0-32.0); Calcium 8.8 mg/dL (8.5-10.1); Chloride 98 mmol/L (98-107); Glucose 253 mg/dL (74-106); Potassium 4.6 mmol/L (3.5-5.1); Sodium 133 mmol/L (136-145); Total Protein 6.3 g/dL (6.4-8.2)
== END 2019-08-09 14:14 ==
LOC: LBN 13:54
PROVIDERS: PCP Family Medicine; Visit Provider Nurse Practitioner Gerontology
DX: E11.40 Type 2 diabetes mellitus with diabetic neuropathy, unspecified (principal)
CPT/HCPCS: 80053

== ENCOUNTER 2019-08-31 11:00 | Outpatient (CLI) | payer MEDICARE, BC, SELFPAY ==
--- NOTE | 2019-08-31 11:15 | DI.RAD_ITS ---
EXAM: XR HIP LT AP LAT ONLY INDICATION: F/U FRACTURE. COMPARISON: CT LOWER EXTREMITY LT WO from 08/06/2019 TECHNIQUE: 2D digital imaging was performed. FINDINGS: There has been no change in alignment of the fracture of the proximal femur adjacent to the prosthes is. The prosthesis is unchanged in alignment. No new fractures are seen. The bones appear osteopor otic. IMPRESSION: No change in proximal femoral fracture. DATA REPOSITORY: RADIATION DOSE DELIVERED:
== END 2019-08-31 11:20 ==
PROVIDERS: PCP Family Medicine; Referring Provider Family Medicine; Visit Provider Student in an Organized Health Care Education/Training Program
DX: S72.115D Nondisplaced fracture of greater trochanter of left femur, subsequent encounter for closed fracture with routine healing (principal); Z96.642 Presence of left artificial hip joint; M97.02XD Periprosthetic fracture around internal prosthetic left hip joint, subsequent encounter; M97.8XXA Periprosthetic fracture around other internal prosthetic joint, initial encounter
CPT/HCPCS: 99213; 73502

== ENCOUNTER 2019-09-11 12:07 | Outpatient (REF) | payer MEDICARE, BC, SELFPAY ==
[2019-09-11 14:16] LABS: Anion Gap 7.1 mmol/L (3-11); BUN 24 mg/dL (7-18); CO2 28.9 mmol/L (21.0-32.0); Calcium 8.6 mg/dL (8.5-10.1); Chloride 98 mmol/L (98-107); Glucose 285 mg/dL (74-106); Potassium 4.8 mmol/L (3.5-5.1); Sodium 134 mmol/L (136-145)
== END 2019-09-11 12:27 ==
LOC: LBN 12:07
PROVIDERS: PCP Family Medicine; Visit Provider Family Medicine
DX: E11.9 Type 2 diabetes mellitus without complications (principal)
CPT/HCPCS: 80048

== ENCOUNTER 2019-09-17 13:07 | Outpatient (REF) | payer MEDICARE, BC, SELFPAY ==
[2019-09-17 14:19] LABS: Vitamin D 25 Total 16.8 ng/ml (30-100)
== END 2019-09-17 13:27 ==
LOC: LBN 13:07
PROVIDERS: PCP Family Medicine; Visit Provider Family Medicine
DX: E83.42 Hypomagnesemia (principal); E55.9 Vitamin D deficiency, unspecified
CPT/HCPCS: 82306; 83735

== ENCOUNTER 2019-09-30 10:25 | Inpatient (IN) | payer MEDICARE, BC, SELFPAY ==
[2019-09-30] VITALS (27 sets, daily range): BP systolic 99–139; BP diastolic 37–73; PULSE 46–75; RESP 14–31; TEMP 36.2–37.1; O2SAT 92–100
--- NOTE | 2019-09-30 10:25 | ED.GENADUL_ITS ---
Discharge Plan Disposition Patient Disposition: [facility] INPATIENT Condition: Fair Discharge Details Chief Complaint: RespSymp Clinical Impression: Pneumonia Primary Care Provider: Jenna Rodriguez ED Provider: Mirella Perry Winigan Meds and New Rx's Prescriptions: No Action (DME) blood-glucose meter misc See Dose Instructions .ROUTE .MEDSUPPLY Qty: 1 RF: 0 (DME) lancets 28 gauge misc 1 ea Miscellaneous TID & PRN Qty: 400 RF: 12 (DME) Blood Glucose Test strip See Dose Instructions .ROUTE .MEDSUPPLY Qty: 400 RF: 5 furosemide 80 mg tablet 80 mg PO DAILY Qty: 90 RF: 5 triamcinolone acetonide 80 GM ointment 2 - 4 gm Topical BID PRNQty: 80 RF: 2 nystatin 60 GM powder 0 Topical BID Qty: 60 RF: 12 fluoxetine [Prozac] 40 MG capsule 40 mg PO QAM Qty: 90 RF: 4 (DME) insulin syringe needleless [BD Insulin Syringe Slip Tip] 1 mL syringe 1 ea Miscellaneous BID Qty: 120 RF: 12 (DME) Pen Needle 30 gauge x 5/16 needle 1 ea Miscellaneous QID Qty: 300 RF: 6 Humulin R Regular U-100 Insuln 100 unit/mL solution 15 unit Sub-Q AC MDD 75 Qty: 1000 RF: 11 atorvastatin 40 mg tablet 40 mg PO DAILY Qty: 90 RF: 12 levothyroxine 50 mcg tablet 50 mcg PO DAILY Qty: 90 RF: 12 losartan [Cozaar] 100 mg tablet 100 mg PO QAM Qty: 90 RF: 4 spironolactone 25 mg tablet 25 mg PO BID DIURETIC Qty: 180 RF: 3 ropinirole 1 mg tablet 3 mg PO HS Qty: 150 RF: 12 metformin [Glucophage XR] 750 mg tablet extended release 24 hr 750 mg PO DAILY Qty: 90 RF: 4 Eliquis 5 mg tablet 5 mg PO BID Qty: 180 RF: 12 nystatin 100,000 unit/gram powder 1 applic topical TID Qty: 60 RF: 5 acetaminophen [Tylenol] 325 MG tablet 650 mg PO Q4H PRN PRN (Reason: Pain) RF: 0 zinc oxide 20 % Ointment 60 g topical TID Qty: 0 RF: 0 clotrimazole 1 % Cream 60 g topical TID Qty: 0 RF: 0 vits A and D-white pet-lanolin Ointment 1 applic topical TID Qty: 0 RF: 0 magnesium oxide 400 MG tablet 800 mg PO BID Qty: 0 RF: 0 tramadol 50 mg Tablet 50 - 100 mg PO Q4H PRN PRN (Reason: pain) Qty: 60 RF: 0 metoprolol tartrate 50 mg Tablet 25 mg PO Q12H Qty: 60 RF: 0 Humulin N NPH Insulin KwikPen 100 unit/mL (3 mL) insulin pen 40 unit Sub-Q BID@0800,2000 Qty: 10 RF: 6 cholecalciferol (vitamin D3) [Vitamin D3] 10 mcg (400 unit) Tablet 800 unit PO DAILY RF: 0 guaifenesin [Mucinex] 600 mg Tablet Extended Release 12hr 600 mg PO .Q12 HOURS RF: 0 albuterol sulfate 2.5 mg/0.5 mL Solution For Nebulization .Q6 HOURS X1 WEEK RF: 0 Medical Decision Making Patient is a pleasant 69 year old female, brought in via EMS from the [facility], with c/c of cough, pleuritic pain, SOB. Patient is [place] and prefers writing for communication. She does communicate well and easily through this method. She has been varying stories regarding her history. She initially reported she was not having chest pain but on further questioning revealed later that she was having some pleuritic chest pain that radiates into the right side of the back. She is primarily here for shortness of breath. She describes the pain in her back immediately at onset of visit describing it as a knife in my back. She states that this began last Tuesday she began cough 3 days ago. Is also endorsing nasal congestion and increased sputum production. She reports that sputum has been green and yellow. She currently resides at the [facility]. No known sick contacts. No recent travel. She is feeling slightly short of breath. Denies abdominal upset. Did receive her influenza vaccine. ECG was reviewed by Dr. Price. Patient is atrial fibrillation, this is unchanged for patient, irregular rhythm with rate of 59. No acute ischemic changes noted. Labs reviewed. Patient has leukocytosis of white count of 19 and left shift. Sodium slightly low at 131. BUN is elevated at 38, creatinine 1.25. This is elevated from the patient's baseline which is typically around 0.9. Patient is receiving hydration as she did appear dry on exam. Glucose is 196, this is typical for the patient. BNP is 2400, I do not have any previous for comparisons. Influenza negative. Patient is reporting that her pain in her chest is increasing. Initially, the patient had denied any chest pain but is now reporting that the pain in the chest is rating to the back is increasing. With this in mind, I do feel that imaging is appropriate to look for possible dissection. She does have good distal pulses. She is reporting tingling in her legs. Also considered possible PE with her shortness of breath although infectious etiology with the patient's white count as well as congestion and green sputum is much more likely. Plan for a CT imaging. Will obtain a CT for PE with abdomen pelvis as well looking for possible dissection as well as pulmonary embolism or other underlying infectious source. Chest x-ray was reviewed by radiologist: FINDINGS: Lungs: Mild opacities in the lower lobes may represent minimal atelectasis or pneumonia. Nonspecific. Pleural space: Unremarkable. No pleural effusion. No pneumothorax. Heart/Mediastinum: Stable cardiac silhouette Bones/joints: Degenerative changes in the acromioclavicular joints and glenohumeral joints Other findings: Overlying EKG wires IMPRESSION: Mild opacities in the lower lobes may represent minimal atelectasis or pneumonia. Nonspecific. CT reviewed by radiologist: FINDINGS: Pulmonary arteries: No evidence of pulmonary embolus to the segmental level. Aorta: No aneurysm of the aorta. No dissection of the aorta. Lungs: Patchy bilateral peripheral opacities may represent multifocal pneumonia. Nonspecific. Pleural space: Unremarkable. No pneumothorax. No pleural effusion. Heart: Unremarkable. No cardiomegaly. No pericardial effusion. Lymph nodes: Unremarkable. No enlarged lymph nodes. Bones/joints: Unhealed fractures in the T9 vertebral body. Series 14, image 77 - 80.. Soft tissues: Unremarkable. IMPRESSION: 1. No evidence of pulmonary embolus to the segmental level. 2. No aneurysm of the aorta. 3. No dissection of the aorta. 4. Patchy bilateral peripheral opacities may represent multifocal pneumonia. Nonspecific. 5. Unhealed fractures in the T9 vertebral body. Series 14, image 77 -80.. Liver: Normal. No mass. Gallbladder and bile ducts: Gallstone in the gallbladder. Pancreas: Pancreatic atrophy Spleen: Normal. No splenomegaly. Adrenals: Normal. No mass. Kidneys and ureters: Normal. No hydronephrosis. Stomach and bowel: Unremarkable. No obstruction. No mucosal thickening. Appendix: No evidence of appendicitis. Intraperitoneal space: Unremarkable. No free air. No significant fluid collection. Vasculature: Unremarkable. No abdominal aortic aneurysm. Lymph nodes: Unremarkable. No enlarged lymph nodes. Bladder: Unremarkable as visualized. Reproductive: Unremarkable as visualized. Bones/joints: Left total hip replacement Broad-based disc bulge, facet hypertrophy, and ligament hypertrophy at L2/L3, L3/L4 L4/L5 consistent with spinal stenosis. Recommend MRI for further evaluation. Compression fractures of unknown age in the lumbar spine Soft tissues: Unremarkable. IMPRESSION: 1. Gallstone in the gallbladder. 2. Broad-based disc bulge, facet hypertrophy, and ligament hypertrophy at L2/L3, L3/L4 L4/L5 consistent with spinal stenosis. Recommend MRI for further evaluation. Patient will be started on ceftriaxone and doxycycline IV. I did consult with the provider covering the [facility] as well as the nursing air cargo ground operations supervisor at this point, did not have a safe way to isolate a patient that is pending COVID testing and keep their other high risk populations . For this reason, I feel that admission is appropriate in this patient Who is otherwise ill with pneumonia of uncertain etiology. Patient has remained comfortable while here. She is received a total of 1 L of fluids and is currently on a rate. She continues to have pain in her back, she has received 2 mg of morphine and then will give p.o. Tylenol. Consulted with hospitalist, Dr. garcia, who agrees to admission will place holding orders. I also reached out to administration regarding long-term plan with the [facility] regarding the COVID pandemic we are currently facing. HPI General Mode of arrival: EMS . Date/Time Provider Initiated Documentation: 09/30/19 10:57 . Limitations to Documentation: no limitations . Information obtained by: patient, EMS and RN notes reviewed . History of Present Illness 69 year old F presents to the emergency department with the chief complaint of cough, SOB, pleuritic pain, described as moderate, Quality is described as stabbing, and is localized to the chest. Patient reports radiation to back. Patient started experiencing this day(s) (3) and it has been constant (pain only with coughing). No relieving factors improve symptom(s), Other factors that worsen symptoms (coughing) . Patient notes chest pain, cough and shortness of breath; denies diaphoresis, fever/chills, headaches, loss of appetite, nausea/vomiting, rash, syncope and weakness. Patient did receive the following treatments prior to arrival, none Related Data Home Medications Medication Instructions Recorded Confirmed nystatin 0 TOPICAL BID #60 gm 06/27/17 05/23/19 triamcinolone acetonide 2 - 4 gm TOPICAL BID PRN #80 gm 06/27/17 09/30/19 acetaminophen [Tylenol] 650 mg PO Q4H PRN PRN tab 11/18/17 09/30/19 fluoxetine [Prozac] 40 mg PO QAM #90 cap 02/13/18 09/30/19 insulin syringe needleless 1 mL #120 syringe 04/10/18 05/23/19 pen needle, diabetic 30 gauge x #300 ndl 04/10/18 05/23/1911/23 furosemide 80 mg tablet 80 mg PO DAILY #90 tab-cap 05/22/18 09/30/19 insulin regular human 100 unit/mL 15 unit SUB-Q AC #1000 unit MDD 75 07/13/18 09/30/19 injection solution blood-glucose meter #1 each 11/14/18 05/23/19 blood sugar diagnostic #400 each 11/29/18 05/23/19 lancets 28 gauge #400 ea 11/29/18 05/23/19 clotrimazole 60 g TOPICAL TID #0 g 01/16/19 09/30/19 magnesium oxide 800 mg PO BID #0 tab 01/16/19 09/30/19 vits A and D-white pet-lanolin 1 applic TOPICAL TID #0 gm 01/16/19 09/30/19 zinc oxide 60 g TOPICAL TID #0 g 01/16/19 09/30/19 atorvastatin 40 mg tablet 40 mg PO DAILY #90 tab-cap 02/20/19 09/30/19 levothyroxine 50 mcg tablet 50 mcg PO DAILY #90 tab-cap 02/20/19 09/30/19 losartan 100 mg tablet 100 mg PO QAM #90 tab-cap 02/20/19 09/30/19 spironolactone 25 mg tablet 25 mg PO BID DIURETIC #180 tab 04/05/19 09/30/19 apixaban 5 mg tablet 5 mg PO BID #180 tab-cap 05/01/19 09/30/19 metformin 750 mg tablet,extended 750 mg PO DAILY #90 tab 05/01/19 09/30/19 release 24 hr ropinirole 1 mg tablet 3 mg PO HS #150 tab 05/01/19 09/30/19 nystatin 100,000 unit/gram topical 1 applic TOPICAL TID #60 gm 07/24/19 09/30/19 powder Humulin N NPH Insulin KwikPen 40 unit SUB-Q BID@0800,2000 #10 08/07/19 09/30/19 vial metoprolol tartrate 25 mg PO Q12H #60 tab 08/07/19 09/30/19 tramadol 50 - 100 mg PO Q4H PRN PRN #60 tab 08/07/19 09/30/19 albuterol sulfate .Q6 HOURS X1 WEEK 09/30/19 cholecalciferol (vitamin D3) 800 unit PO DAILY 09/30/19 09/30/19 [Vitamin D3] guaifenesin [Mucinex] 600 mg PO .Q12 HOURS 09/30/19 09/30/19 Previous Rx's Medication Instructions Recorded acetaminophen [Tylenol] 650 mg PO Q4H PRN PRN tab 11/18/17 fluoxetine [Prozac] 40 mg PO QAM #90 cap 02/13/18 insulin syringe needleless 1 mL #120 syringe 04/10/18 pen needle, diabetic 30 gauge x #300 ndl 04/10/1811/23 furosemide 80 mg tablet 80 mg PO DAILY #90 tab-cap 05/22/18 insulin regular human 100 unit/mL 15 unit SUB-Q AC #1000 unit MDD 75 07/13/18 injection solution blood-glucose meter #1 each 11/14/18 blood sugar diagnostic #400 each 11/29/18 lancets 28 gauge #400 ea 11/29/18 clotrimazole 60 g TOPICAL TID #0 g 01/16/19 magnesium oxide 800 mg PO BID #0 tab 01/16/19 vits A and D-white pet-lanolin 1 applic TOPICAL TID #0 gm 01/16/19 zinc oxide 60 g TOPICAL TID #0 g 01/16/19 atorvastatin 40 mg tablet 40 mg PO DAILY #90 tab-cap 02/20/19 levothyroxine 50 mcg tablet 50 mcg PO DAILY #90 tab-cap 02/20/19 losartan 100 mg tablet 100 mg PO QAM #90 tab-cap 02/20/19 spironolactone 25 mg tablet 25 mg PO BID DIURETIC #180 tab 04/05/19 apixaban 5 mg tablet 5 mg PO BID #180 tab-cap 05/01/19 metformin 750 mg tablet,extended 750 mg PO DAILY #90 tab 05/01/19 release 24 hr ropinirole 1 mg tablet 3 mg PO HS #150 tab 05/01/19 nystatin 100,000 unit/gram topical 1 applic TOPICAL TID #60 gm 07/24/19 powder Humulin N NPH Insulin KwikPen 40 unit SUB-Q BID@0800,2000 #10 08/07/19 vial metoprolol tartrate 25 mg PO Q12H #60 tab 08/07/19 tramadol 50 - 100 mg PO Q4H PRN PRN #60 tab 08/07/19 Allergies Allergy/AdvReac Type Severity Reaction Status Date / Time No Known Allergies Allergy Verified 09/30/19 10:40 General JOLEEN: 3 Review of Systems Constitutional Constitutional: Reports as per HPI, Denies chills, Reports fatigue, Denies fever(s), Denies headache(s) and Reports malaise Eyes Eyes: Reports as per HPI, Denies eye discharge and Denies irritation ENT Ears, Nose, Mouth, and Throat: Reports as per HPI and Denies headache(s) Cardiovascular Cardiovascular: Reports as per HPI, Denies chest pain, Denies pedal edema, Denies edema, Denies radiating jaw, neck or arm pain, Reports dyspnea and Denies orthopnea Respiratory Respiratory: Reports as per HPI, Reports change in phlegm color (yellow/green), Reports chest congestion, Reports cough, Denies hemoptysis, Reports pain on inspiration, Reports pain with cough, Reports dyspnea and Denies wheezing Gastrointestinal Gastrointestinal: Reports as per HPI, Denies abdominal pain, Denies change in bowel habits, Denies nausea and Denies vomiting Integumentary/Breasts Skin/Breast: Reports as per HPI and Denies rash Neurologic Neurologic: Reports as per HPI and Denies headache(s) Endocrine Endocrine: Reports fatigue Allergic/Immunologic Allergic/Immunologic: Denies wheezing PFSH Medical History Amputated toe (Chronic) GANGRENOUS 2ND AND 3RD RIGHT TOES 11/14/17 Amputated toe of right foot (Chronic) Arthritis (Chronic) Atrial fibrillation (Chronic) Atrial fibrillation (Chronic 04/13/17) Bilateral lower leg cellulitis (Chronic 05/29/14) a. right worse than left Cataract (Chronic) mild; Fine Drusen in macula-OD S/P SURGERY Cellulitis of leg (Chronic 10/31/14) Depression (Chronic) Depressive disorder (Chronic) Displaced bimalleolar fracture of right ankle (Chronic 05/29/14) DJD of shoulder (Chronic) a. 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 Left ankle 2012 Hearing loss (Chronic) Hearing loss (Chronic) BILATERAL AIDS difficulties w/ the hearing aids History of tobacco use (Chronic) a. 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-disordered breathing (Chronic) Restless legs syndrome (Chronic) Sciatica (Chronic) right; xray from 02/10 showed scattered spondylosis ant L4-5 on the left and mid lumbar scoliosis convex to the right Sensorineural hearing loss, bilateral (Chronic 05/24/17) Sleep apnea with use of continuous positive airway pressure (CPAP) (Chronic) Toe gangrene (Chronic) Transient ischemic attack (Chronic) Type 2 diabetes mellitus with diabetic neuropathy (Chronic 05/13/15) SEEN ENDOCRINE AT [facility] Venous stasis (Chronic) Vitamin D deficiency (Chronic 05/07/15) Surgical History Amputation RIGHT SECOND AND THIRD TOES DUE TO DIABETIC ULCERS WITH CELLULITIS;11/14/17 DR. MAI Colonoscopy - MAC (~2003) Extraction of cataract 04/15/17 DR. ARRIETA; LEFT EYE 04/29/17 DR. ARRIETA; RIGHT EYE PROCEDURES REPAIR OF INTESTINE NEC puncture during colonoscopy ACHILLOTENOTOMY L Achilles tendon repair Family History Mother Neoplasm LUNG Father Heart disease Brother Heart disease Sister No problems noted. Grandfather Heart disease Grandfather Heart disease Grandmother Diabetes Grandmother Diabetes Sister No problems noted. Sister No problems noted. Sister Diabetes Sister No problems noted. Brother No problems noted. Brother No problems noted. Social History Smoking/Tobacco Use Status: Former Tobacco Use Alcohol Intake: never Drug use: Never Substance use type: does not use Current gender identity: female Do you feel safe at home: Yes Do you feel safe in your relationship?: Yes Exam Const General: cooperative, healthy appearing, comfortable, no acute distress, well developed and well groomed Nutritional Appearance: well nourished and overweight Orientation: alert and awake [facility] Head: normal to inspection, normocephalic and atraumatic Ears: hearing grossly normal bilaterally, external ears normal and TM's normal bilaterally General nose exam: external nose normal and nares normal Face and sinus: normal facial exam, sinuses nontender and face symmetric Mouth: oral mucosae normal, lip normal, tongue normal, oropharynx normal and moist mucous membranes Teeth and gingiva: dentition normal Throat: posterior oropharynx normal, tonsils normal and uvula midline Eyes General: appearance normal, both eyes and all related structures Neck Neck: normal visual inspection, full ROM, no lymphadenopathy and no meningeal signs Resp Effort & Inspection: normal respiratory effort, able to speak in complete sentences and no respiratory distress Auscultation: no rales, rhonchi (fairly diffuse wet sounding ) and wheezes scattered wheezes Cardio Rate: regular rate Rhythm: regular rhythm Heart Sounds: S1 normal and S2 normal GI Inspection: normal to inspection and obesity Palpation: soft, no hepatosplenomegaly, not firm, no guarding, not rigid and nontender Percussion: normal to percussion Auscultation: normal bowel sounds Skin General skin exam: no rashes or lesions noted Neuro General: patient alert and patient awake Cognition: normal cognition Speech: speech normal Extrem General: capillary refill normal, no clubbing, cyanosis or edema, no pedal edema, no calf tenderness and other (chronic discoloration BLE, darkening of skin) Psych Appearance: grossly normal and well kempt Mental Status: mental status grossly normal Speech and Movement: speech and movement normal
--- NOTE | 2019-09-30 10:30 | DI.RAD_ITS ---
EXAM: XR PORTABLE CHEST AP and chest, abdomen and pelvic ct CLINICAL HISTORY: SOB, COUGH, CHEST PAIN, LEG TINGLING COMPARISON: XR CHEST 2V PA LATERAL from 08/03/2019 CT CHEST PE ABD PELVIS W from 09/30/2019 FINDINGS: CT of the chest, abdomen and pelvis was performed and is interpreted in conjunction with the portable AP view of the chest. The AP view of the chest shows mild cardiomegaly and question patchy bilatera l intrapulmonary infiltrates. The chest CT shows multi focal ground-glass and consolidative infiltra leilani predominantly in the lower lobes with the most prominent consolidation posteriorly. The findings are consistent with a multifocal pneumonia, slight superimposed CHF not excluded. No pleural effusi on. The presumed infectious process as described has a nonspecific appearance, COVID not excluded. No gross mediastinal or hilar adenopathy. Tracheobronchial tree appears intact. No evidence of pulm onary embolic disease or other major vascular abnormality of the thorax. There is cholelithiasis. No biliary dilatation. Unremarkable appearance of the liver, spleen, and p ancreas. No abdominal or pelvic adenopathy. No significant abdominal wall hernia. Adrenals and kidneys are u nremarkable, no urinary tract calcification or obstruction. Appendix is normal. No evidence of diverticulitis or bowel obstruction. Medical Reimbursement Manager structures grossly unremarkable for a postmenopausal patient. Abdominal aorta is of normal diameter, mild calcific atheromatous plaque noted at multiple sites, no gross obstruction of major branch vessels. IMPRESSION: Multi focal pulmonary infiltrates, ground-glass and consolidative, predominantly lower lobe and with most prominent findings posteriorly. Findings are consistent with nonspecific infectious pneumonitis , the findings would be consistent with COVID appropriate clinical setting.
[2019-09-30 11:20] LABS: Abs Immature Grans 0.05 k/cumm (0.0-0.09); Absolute Basophil Count 0.04 k/cumm (0.0-0.2); Absolute Monocyte Count 1.05 k/cumm (0.11-0.7); Basophils % 0.2; HCT 40.9 % (36.0-46.0); Immature Grans % 0.3 %; Lymphocytes % 11.1; Mean Corp. HGB Concentration 34.2 g/dL (32.0-36.0); Mean Corpuscular Hemoglobin 32.3 pg (27.0-33.0); Mean Corpuscular Volume 94.5 fL (80-95); Mean Platelet Volume 10.6 fL (8.0-11.0); Monocytes % 5.4; Platelet Count 271 x1000/uL (130-400); RBC 4.33 m/cumm (4.00-5.20); White Blood Cell Count 19.38 k/cumm (4.4-10.8)
[2019-09-30 11:21] LABS: Absolute Lymphocyte Count 2.15 k/cumm (1.2-3.4); Absolute Neutrophil Count 16.09 k/cumm (1.2-6.7)
[2019-09-30 11:41] LABS: ALT 16 U/L (14-59); AST 18 U/L (15-37); Albumin 3.2 g/dL (3.4-5.0); Alkaline Phosphatase 95 U/L (46-116); Anion Gap 9.3 mmol/L (3-11); BUN 38 mg/dL (7-18); Bilirubin, Total 1.6 mg/dL (0.2-1.0); CO2 26.7 mmol/L (21.0-32.0); CREATININE 1.25 mg/dL (0.55-1.02); Calcium 8.9 mg/dL (8.5-10.1); Chloride 95 mmol/L (98-107); Estimated GFR 42.75 (mL/min/1.73m2); Glucose 196 mg/dL (74-106); NT-proBNP 2401 pg/mL (<300); Potassium 4.7 mmol/L (3.5-5.1); Sodium 131 mmol/L (136-145); Total Protein 8.3 g/dL (6.4-8.2); Troponin I < 0.05 ng/Ml (<0.06)
--- NOTE | 2019-09-30 12:11 | DI.VRAD_ITS ---
PROCEDURE INFORMATION: Exam: XR Chest, 1 View Exam date and time: 09/30/2019 11:53 AM Age: 69 years old Clinical indication: Shortness of breath TECHNIQUE: Imaging protocol: XR of the chest Views: 1 view. COMPARISON: CR XR CHEST 2V PA LATERAL 08/03/2019 12:37 AM FINDINGS: Lungs: Mild opacities in the lower lobes may represent minimal atelectasis or pneumonia. Nonspecific. Pleural space: Unremarkable. No pleural effusion. No pneumothorax. Heart/Mediastinum: Stable cardiac silhouette Bones/joints: Degenerative changes in the acromioclavicular joints and glenohumeral joints Other findings: Overlying EKG wires IMPRESSION: Mild opacities in the lower lobes may represent minimal atelectasis or pneumonia. Nonspecific. Dictated and Authenticated by: Garfield Allan MD. Ordering:DILLAN Vu MD
[2019-09-30] MEDS: Normal Saline 1,000 ML 1000 ML IV (12:13)
[2019-09-30] MEDS: Omnipaque 350 MG/ML 100 ML BTL IJ (12:32)
--- NOTE | 2019-09-30 12:53 | DI.VRAD_ITS ---
PROCEDURE INFORMATION: Exam: CT Angiography Chest With Contrast Exam date and time: 09/30/2019 12:03 PM Age: 69 years old Clinical indication: Shortness of breath and other: Tingling leg; Chest pain; Other: Leg tingling TECHNIQUE: Imaging protocol: Computed tomographic angiography of the chest with intravenous contrast. 3D rendering: MIP and/or 3D reconstructed images were created by the technologist. Other contrast: Catheter; COMPARISON: CT CHEST WITH CONTRAST 05/20/2017 1:04 PM FINDINGS: Pulmonary arteries: No evidence of pulmonary embolus to the segmental level. Aorta: No aneurysm of the aorta. No dissection of the aorta. Lungs: Patchy bilateral peripheral opacities may represent multifocal pneumonia. Nonspecific. Pleural space: Unremarkable. No pneumothorax. No pleural effusion. Heart: Unremarkable. No cardiomegaly. No pericardial effusion. Lymph nodes: Unremarkable. No enlarged lymph nodes. Bones/joints: Unhealed fractures in the T9 vertebral body. Series 14, image [id number] -[id number].. Soft tissues: Unremarkable. IMPRESSION: 1. No evidence of pulmonary embolus to the segmental level. 2. No aneurysm of the aorta. 3. No dissection of the aorta. 4. Patchy bilateral peripheral opacities may represent multifocal pneumonia. Nonspecific. 5. Unhealed fractures in the T9 vertebral body. Series 14, image [id number] -[id number].. PROCEDURE INFORMATION: Exam: CT Abdomen And Pelvis With Contrast Exam date and time: 09/30/2019 12:03 PM Age: 69 years old Clinical indication: Shortness of breath and other: Tingling leg; Chest pain; Other: Leg tingling TECHNIQUE: Imaging protocol: Computed tomography of the abdomen and pelvis with intravenous contrast. 3D rendering: MIP and/or 3D reconstructed images were created by the technologist. Other contrast: Catheter; COMPARISON: CT CHEST WITH CONTRAST 05/20/2017 1:04 PM FINDINGS: Liver: Normal. No mass. Gallbladder and bile ducts: Gallstone in the gallbladder. Pancreas: Pancreatic atrophy Spleen: Normal. No splenomegaly. Adrenals: Normal. No mass. Kidneys and ureters: Normal. No hydronephrosis. Stomach and bowel: Unremarkable. No obstruction. No mucosal thickening. Appendix: No evidence of appendicitis. Intraperitoneal space: Unremarkable. No free air. No significant fluid collection. Vasculature: Unremarkable. No abdominal aortic aneurysm. Lymph nodes: Unremarkable. No enlarged lymph nodes. Bladder: Unremarkable as visualized. Reproductive: Unremarkable as visualized. Bones/joints: Left total hip replacement Broad-based disc bulge, facet hypertrophy, and ligament hypertrophy at L2/L3, L3/L4 L4/L5 consistent with spinal stenosis. Recommend MRI for further evaluation. Compression fractures of unknown age in the lumbar spine Soft tissues: Unremarkable. IMPRESSION: 1. Gallstone in the gallbladder. 2. Broad-based disc bulge, facet hypertrophy, and ligament hypertrophy at L2/L3, L3/L4 L4/L5 consistent with spinal stenosis. Recommend MRI for further evaluation. Dictated and Authenticated by: Garfield Allan MD. Ordering:DILLAN Vu MD
[2019-09-30] MEDS: cefTRIAXone 1 GM/50 ML BAG IVPB ×2 (13:56→14:22)
[2019-09-30] MEDS: DOXYCYCLINE 100 MG in Normal Saline 100 ML IVPB ×2 (14:01→14:22)
[2019-09-30 14:05] LABS: Lactate 2.1 mmol/L (0.6-1.4)
--- NOTE | 2019-09-30 14:33 | W.PM.HP.N ---
Date of service: 09/30/19 Time of Service: 14:34 Assessment and Plan Assessment and plan (1) CAP (community acquired pneumonia): Start date: 09/30/19 Start time: 15:20 Status: Acute Assessment and plan: Presents with Cough worsening x 4 days, imaging revealing possible pneumonia, patient resides at [facility], will r/o covid as well. Lactate 2.1, WBC 19.38 with shift. Procalcitonin 1.6, Sodium 131which appears to be baseline for patient. Continue doxy and rocephine Blood cultures pending IVF at 75 Sputum culture Nebs, updrafts, ics, acapella, antitussives (2) BABATUNDE (acute kidney injury): Start date: 09/30/19 Start time: 15:29 Status: Acute Assessment and plan: Evidenced by elevated creatinine. IVF at 75, hold nephrotoxic medication. Evaluate patient for volume overload, repeat BMP in am (3) Hypothyroidism: Start date: 09/30/19 Start time: 15:29 Status: Chronic Assessment and plan: Continue home dose levothyroxine (4) Coronavirus infection: Start date: 09/30/19 Start time: 15:30 Status: Suspected Assessment and plan: Patient afebrile, not hypoxic, unlikely however high risk, will r/o COVID 19 (5) Type 2 diabetes mellitus with diabetic neuropathy: Start date: 09/30/19 Start time: 15:31 Status: Chronic Assessment and plan: Fingersticks AcHS, SSI moderate. Qualifiers: Diabetes mellitus prison insulin use: with terminal manager use Qualified Code(s): E11.40 - Type 2 diabetes mellitus with diabetic neuropathy, unspecified; Z79.4 - terminal manager (current) use of insulin (6) Essential hypertension: Start date: 09/30/19 Start time: 15:31 Status: Chronic Assessment and plan: Soft bp in ED, given 1 liter monitor bp and initiate meds with parameters (7) Atrial fibrillation: Start date: 09/30/19 Start time: 15:32 Status: Chronic Assessment and plan: Rate controlled, takes apixaban, lopressor, continue both (8) DVT prophylaxis: Start date: 09/30/19 Start time: 15:33 Status: Acute Assessment and plan: On apixaban (9) Discharge planning issues: Start date: 03/22/20 Start time: 15:33 Status: Acute Assessment and plan: Will return to [facility] when medically stable. Above case discussed with Dr. Knapp who is in agreement. History of Present Illness History of Present Illness Chief Complaint: Cough, Pleurtic Chest Pain Narrative: 69 y.o female with type 2 diabetes requiring insulin, HTN, HLD, Afib ( anticoagulated on apixaban) and falls presented to [facility] ED from [facility] for cough worsening over last 2 weeks, pleuritic chest pain and SOB. She is [place] able to read lips and read question on a paper. She states she has had a cough for two weeks getting worse over the last 4 days accompanied by green sputum. She came from the [facility], denies being around anyone else ill, denies Fever, chills. Initially she states she had chest pain to ED provider however when asked directly she states no chest pain, just stabbing pain when I cough. EKG in ED with afib, controlled rate no ischemia. Labs significant for leukocytosis of 19.38 with shift up to 16.09. Lactate 2.1, procalcitonin 1.6, BABATUNDE with creatinine 1.6, hyponatremic. blood cultures pending. She was afebrile in the ED. Imaging revealing Patchy bilateral peripheral opacities may represent multifocal pneumonia and Unhealed fractures in the T9 vertebral body. Due to Risk factors patient is being r/o for COVID 19 therefore she is being admitted to Resp. M/S unit. She will be on nebs, updrafts, ceftriaxone, doxy. At this time she is not requiring a steroid. Will given light hydration for BABATUNDE, hold nephrotoxic meds, she was given 1 liter in ED. She denies, CP at this time, SOB, N/V/D. Review of Systems All systems reviewed & are unremarkable except as noted in HPI and below [facility] Medical History Amputated toe (Chronic) GANGRENOUS 2ND AND 3RD RIGHT TOES 11/14/17 Amputated toe of right foot (Chronic) Arthritis (Chronic) Atrial fibrillation (Chronic) Atrial fibrillation (Chronic 04/13/17) Bilateral lower leg cellulitis (Chronic 05/29/14) a. right worse than left Cataract (Chronic) mild; Fine Drusen in macula-OD S/P SURGERY Cellulitis of leg (Chronic 10/31/14) Depression (Chronic) Depressive disorder (Chronic) Displaced bimalleolar fracture of right ankle (Chronic 05/29/14) DJD of shoulder (Chronic) a. 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 Left ankle 2011 Hearing loss (Chronic) Hearing loss (Chronic) BILATERAL AIDS difficulties w/ the hearing aids History of tobacco use (Chronic) a. 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 [place] Venous stasis (Chronic) Vitamin D deficiency (Chronic 05/07/15) Surgical History Amputation RIGHT SECOND AND THIRD TOES DUE TO DIABETIC ULCERS WITH CELLULITIS;11/14/17 DR. PAU Bright - SHANTANU (~2003) Extraction of cataract 04/15/17 DR. ARRIETA; LEFT EYE 04/29/17 DR. ARRIETA; RIGHT EYE PROCEDURES REPAIR OF INTESTINE NEC puncture during colonoscopy ACHILLOTENOTOMY L Achilles tendon repair Family History Mother Neoplasm LUNG Father Heart disease Brother Heart disease Sister No problems noted. Grandfather Heart disease Grandfather Heart disease Grandmother Diabetes Grandmother Diabetes Sister No problems noted. Sister No problems noted. Sister Diabetes Sister No problems noted. Brother No problems noted. Brother No problems noted. Social History Smoking/Tobacco Use Status: Former Tobacco Use Alcohol Intake: never Drug use: Never Substance use type: does not use Current gender identity: female Do you feel safe at home: Yes Do you feel safe in your relationship?: Yes Meds Home Medications and Allergies Home Medications Medication Instructions Recorded Confirmed Type nystatin 0 TOPICAL BID #60 gm 06/27/17 05/23/19 History triamcinolone acetonide 2 - 4 gm TOPICAL BID PRN #80 gm 06/27/17 09/30/19 History acetaminophen [Tylenol] 650 mg PO Q4H PRN PRN tab 11/18/17 09/30/19 Rx fluoxetine [Prozac] 40 mg PO QAM #90 cap 02/13/18 09/30/19 Rx insulin syringe needleless 1 mL #120 syringe 04/10/18 05/23/19 Rx pen needle, diabetic 30 gauge x #300 ndl 04/10/18 05/23/19 Rx /16 furosemide 80 mg tablet 80 mg PO DAILY #90 tab-cap 05/22/18 09/30/19 Rx insulin regular human 100 unit/mL 15 unit SUB-Q AC #1000 unit MDD 75 07/13/18 09/30/19 Rx injection solution blood-glucose meter #1 each 11/14/18 05/23/19 Rx blood sugar diagnostic #400 each 11/29/18 05/23/19 Rx lancets 28 gauge #400 ea 11/29/18 05/23/19 Rx clotrimazole 60 g TOPICAL TID #0 g 01/16/19 09/30/19 Rx magnesium oxide 800 mg PO BID #0 tab 01/16/19 09/30/19 Rx vits A and D-white pet-lanolin 1 applic TOPICAL TID #0 gm 01/16/19 09/30/19 Rx zinc oxide 60 g TOPICAL TID #0 g 01/16/19 09/30/19 Rx atorvastatin 40 mg tablet 40 mg PO DAILY #90 tab-cap 02/20/19 09/30/19 Rx levothyroxine 50 mcg tablet 50 mcg PO DAILY #90 tab-cap 02/20/19 09/30/19 Rx losartan 100 mg tablet 100 mg PO QAM #90 tab-cap 02/20/19 09/30/19 Rx spironolactone 25 mg tablet 25 mg PO BID DIURETIC #180 tab 04/05/19 09/30/19 Rx apixaban 5 mg tablet 5 mg PO BID #180 tab-cap 05/01/19 09/30/19 Rx metformin 750 mg tablet,extended 750 mg PO DAILY #90 tab 05/01/19 09/30/19 Rx release 24 hr ropinirole 1 mg tablet 3 mg PO HS #150 tab 05/01/19 09/30/19 Rx nystatin 100,000 unit/gram topical 1 applic TOPICAL TID #60 gm 07/24/19 09/30/19 Rx powder Humulin N NPH Insulin KwikPen 40 unit SUB-Q BID@0800,2000 #10 08/07/19 09/30/19 Rx vial metoprolol tartrate 25 mg PO Q12H #60 tab 08/07/19 09/30/19 Rx tramadol 50 - 100 mg PO Q4H PRN PRN #60 tab 08/07/19 09/30/19 Rx albuterol sulfate .Q6 HOURS X1 WEEK 09/30/19 History cholecalciferol (vitamin D3) 800 unit PO DAILY 09/30/19 09/30/19 History [Vitamin D3] guaifenesin [Mucinex] 600 mg PO .Q12 HOURS 09/30/19 09/30/19 History Allergies Allergy/AdvReac Type Severity Reaction Status Date / Time No Known Allergies Allergy Verified 09/30/19 10:40 Exam Const General: cooperative, healthy appearing, no acute distress and ill appearing chronically Nutritional Appearance: overweight Orientation: alert, awake and oriented x3 Limitations: language barrier ([place] can read lips and reading writing on paper) HENMT Head: normal to inspection, normocephalic and atraumatic Ears: hearing grossly abnormal bilaterally and hearing grossly impaired Eyes General: appearance normal, both eyes and all related structures Conjunctivae: conjunctivae normal Pupils: PERRL Neck Neck: normal visual inspection and trachea midline Thyroid: thyroid normal Lymphatic: no lymphadenopathy noted and no lymphedema noted Chest Chest: normal inspection of the chest Resp Effort & Inspection: normal respiratory effort, able to speak in complete sentences and cough Quality of cough: productive Auscultation: diminished lung sounds and rhonchi left upper, right upper, left lower and right lower Cardio Jugular venous pressure: no JVD Palpation: normal PMI Rhythm: abnormal rhythm irregularly irregular Heart Sounds: S1 normal and S2 normal GI Inspection: normal to inspection Palpation: soft and no hepatosplenomegaly Auscultation: normal bowel sounds General: deferred Back/Spine/Pelvis Back: no CVA tenderness Cervical Spine: normal cervical lordosis Thoracic/Lumbar Spine: thoracic and lumbar spine normal to inspection Pelvis: no pain with anterior-posterior compression Skin General skin exam: no rashes or lesions noted Trauma: no lacerations or abrasions Neuro General: patient alert, patient awake and patient oriented x3 Cognition: normal cognition Extrem General: normal to inspection Psych Appearance: grossly normal and disheveled Results Labs Result diagrams: 09/30/19 11:05 09/30/19 11:05 Labs: Laboratory Results - last 24 hr 09/30/19 09/30/19 09/30/19 11:05 11:05 13:35 WBC 19.38 H RBC 4.33 Hgb 14.0 Hct 40.9 MCV 94.5 MCH 32.3 MCHC 34.2 RDW 13.0 Plt Count 271 MPV 10.6 Immature Gran % 0.3 Neutrophils % 83.0 Lymphocytes % 11.1 Monocytes % 5.4 Eosinophils % 0.0 Basophils % 0.2 Absolute Neutrophils 16.09 H Absolute Lymphocytes 2.15 Absolute Monocytes 1.05 H Absolute Eosinophils 0.00 Absolute Basophils 0.04 Sodium 131 L Potassium 4.7 Chloride 95 L Carbon Dioxide 26.7 Anion Gap 9.3 BUN 38 H Creatinine 1.25 H Estimated GFR/1.73 m2 42.75 Glucose 196 H Lactate 2.1 H* Calcium 8.9 Magnesium 2.0 Total Bilirubin 1.6 H AST 18 ALT 16 Alkaline Phosphatase 95 Troponin I < 0.05 NT-Pro-B Natriuret Pep 2401 H Total Protein 8.3 H Albumin 3.2 L Last Vital Signs Temp 36.6 C 09/30/19 14:00 Pulse 63 09/30/19 12:46 Resp 20 09/30/19 12:46 BP 99/37 L 09/30/19 12:46 Pulse Ox 92 L 09/30/19 12:46
[2019-09-30 14:59] LABS: Procalcitonin 1.6 ng/mL
[2019-09-30] MEDS: Acetaminophen 500 MG TAB 1000 MG PO (15:30)
[2019-09-30] MEDS: Insulin Aspart 300 UNITS/3 ML PEN SC (17:39)
[2019-09-30] MEDS: guaiFENesin 600 MG TABCR PO (17:40)
[2019-09-30] MEDS: Benzonatate 100 MG CAP PO (21:45)
[2019-09-30] MEDS: Magnesium Oxide 400 MG TAB 800 MG PO (21:46)
[2019-09-30] MEDS: Apixaban 5 MG TAB PO (21:46)
[2019-09-30] MEDS: Metoprolol 50 MG TAB 25 MG PO (23:05)
[2019-09-30] MEDS: Normal Saline 1,000 ML 75 ML IV (23:16)
[2019-10-01] VITALS (10 sets, daily range): BP systolic 118–157; BP diastolic 68–95; PULSE 58–78; RESP 18–24; TEMP 36.6–37.5; O2SAT 91–98
[2019-10-01] MEDS: rOPINIRole 1 MG TAB 3 MG PO ×2 (00:11→22:18)
[2019-10-01] MEDS: DOXYCYCLINE 100 MG in Normal Saline 100 ML IVPB ×2 (00:12→12:19)
--- NOTE | 2019-10-01 01:25 | NUR.NOTE ---
Pt admitted to RICU. Stretcher has no built in scale, no standing scale available. last recorded wt found in records was november 2018 wt 198. Nursing Note:
[2019-10-01] MEDS: guaiFENesin 600 MG TABCR PO ×2 (04:50→16:58)
[2019-10-01] MEDS: Levothyroxine 50 MCG TAB PO (06:00)
[2019-10-01 07:51] LABS: Abs Immature Grans 0.03 k/cumm (0.0-0.09); Absolute Eosinophil Count 0.09 k/cumm (0.0-0.7); Absolute Lymphocyte Count 2.05 k/cumm (1.2-3.4); Absolute Monocyte Count 0.98 k/cumm (0.11-0.7); Absolute Neutrophil Count 11.71 k/cumm (1.2-6.7); Basophils % 0.1; Eosinophils % 0.6; HCT 37.3 % (36.0-46.0); HGB 12.5 g/dL (12.0-15.5); Immature Grans % 0.2 %; Lymphocytes % 13.8; Mean Corp. HGB Concentration 33.5 g/dL (32.0-36.0); Mean Corpuscular Hemoglobin 32.1 pg (27.0-33.0); Mean Corpuscular Volume 95.9 fL (80-95); Mean Platelet Volume 10.9 fL (8.0-11.0); Monocytes % 6.6; Neutrophils % 78.7; Platelet Count 211 x1000/uL (130-400); RBC 3.89 m/cumm (4.00-5.20); RBC Distribution Width 12.9 % (11.7-14.6); White Blood Cell Count 14.88 k/cumm (4.4-10.8)
[2019-10-01 07:55] LABS: Anion Gap 9.5 mmol/L (3-11); BUN 22 mg/dL (7-18); CO2 24.5 mmol/L (21.0-32.0); CREATININE 0.82 mg/dL (0.55-1.02); Calcium 8.5 mg/dL (8.5-10.1); Chloride 99 mmol/L (98-107); Glucose 200 mg/dL (74-106); Magnesium 1.7 mg/dL (1.8-2.4); Potassium 4.5 mmol/L (3.5-5.1); Sodium 133 mmol/L (136-145)
[2019-10-01 08:28] LABS: Absolute Basophil Count 0.01 k/cumm (0.0-0.2)
[2019-10-01] MEDS: traMADol 50 MG TAB PO ×2 (08:28→22:19)
[2019-10-01] MEDS: Metoprolol 25 MG TAB PO ×2 (08:29→19:28)
[2019-10-01] MEDS: Magnesium Oxide 400 MG TAB 800 MG PO ×2 (08:29→19:27)
[2019-10-01] MEDS: Losartan 50 MG TAB 100 MG PO (08:29)
[2019-10-01] MEDS: Cholecalciferol (Vitamin D3) 400 UNIT TAB 800 UNIT PO (08:29)
[2019-10-01] MEDS: Atorvastatin 40 MG TAB PO (08:30)
[2019-10-01] MEDS: FLUoxetine 20 MG CAP 40 MG PO (08:30)
[2019-10-01] MEDS: Insulin Aspart 300 UNITS/3 ML PEN SC ×3 (08:30→17:04)
[2019-10-01] MEDS: Benzonatate 100 MG CAP PO ×3 (08:30→19:28)
[2019-10-01] MEDS: Apixaban 5 MG TAB PO ×2 (08:30→19:27)
[2019-10-01 08:33] LABS: Lactate 1.2 mmol/L (0.6-1.4)
[2019-10-01 08:36] LABS: Diff Comment Agrees w/ Instrument; RBC Morphology Normal
--- NOTE | 2019-10-01 08:45 | PCNE_ITS ---
Date of service: 10/01/19 Time of Service: 07:45 History of Present Illness Narrative: 2-week history of cough, worsening shortness of breath, sputum now green. Resides at [facility]. Does have poorly controlled diabetic with most recent A1c of 14. Admitted for pneumonia and rule out CO VID She states that she is feeling quite well. Consults Consult date: 10/01/19 Requesting physician: Ty Knapp Assessment and Plan Assessment and plan (1) Pneumonia: Status: Acute (2) BABATUNDE (acute kidney injury): Status: Resolved (3) Palliative care encounter: Status: Acute Assessment and plan: Probable pneumonia?she is on appropriate antibiotics Renal insufficiency?judicious use of fluids CODE STATUS she again reiterated that she wants to be a DNR/DNI She is being ruled out for CO VID She presently is doing actually quite well. She is not on oxygen. She looks well, at her baseline. And her white count is improving. Hopefully she will be able to return to the [facility] soon This document was created by [employer] voice recognition and may contain grammatical and translation errors. Review of Systems Narrative: She states that she is breathing fine, she does not have oxygen on. She is tired but that is not unusual. She does not have any chest pain. She does not do much so does not know if she has any dyspnea on exertion. [facility] She has not had any recent contacts who were ill. Bowels fine No chest pain Musculoskeletal she does have significant problems with ankle pain and balance. She is very hard of hearing and communicates by reading lips and a white board [facility] Medical History Amputated toe (Chronic) GANGRENOUS 2ND AND 3RD RIGHT TOES 11/14/17 Amputated toe of right foot (Chronic) Arthritis (Chronic) Atrial fibrillation (Chronic) Atrial fibrillation (Chronic 04/13/17) Bilateral lower leg cellulitis (Chronic 05/29/14) a. right worse than left Cataract (Chronic) mild; Fine Drusen in macula-OD S/P SURGERY Cellulitis of leg (Chronic 10/31/14) Depression (Chronic) Depressive disorder (Chronic) Displaced bimalleolar fracture of right ankle (Chronic 05/29/14) DJD of shoulder (Chronic) a. 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 Left ankle 2012 Hearing loss (Chronic) Hearing loss (Chronic) BILATERAL AIDS difficulties w/ the hearing aids History of tobacco use (Chronic) a. 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-disordered breathing (Chronic) Restless legs syndrome (Chronic) Sciatica (Chronic) right; xray from 02/10 showed scattered spondylosis ant L4-5 on the left and mid lumbar scoliosis convex to the right Sensorineural hearing loss, bilateral (Chronic 05/24/17) Sleep apnea with use of continuous positive airway pressure (CPAP) (Chronic) Toe gangrene (Chronic) Transient ischemic attack (Chronic) Type 2 diabetes mellitus with diabetic neuropathy (Chronic 05/13/15) [place] [facility] [place] stasis (Chronic) Vitamin D deficiency (Chronic 05/07/15) Surgical History Amputation RIGHT SECOND AND THIRD TOES DUE TO DIABETIC ULCERS WITH CELLULITIS;11/14/17 DR. MAI Colonoscopy - [facility] (~2003) Extraction of cataract 04/15/17 DR. ARRIETA; LEFT EYE 04/29/17 DR. ARRIETA; RIGHT EYE PROCEDURES REPAIR OF INTESTINE NEC puncture during colonoscopy ACHILLOTENOTOMY L Achilles tendon repair Family History Mother Neoplasm LUNG Father Heart disease Brother Heart disease Sister No problems noted. Grandfather Heart disease Grandfather Heart disease Grandmother Diabetes Grandmother Diabetes Sister No problems noted. Sister No problems noted. Sister Diabetes Sister No problems noted. Brother No problems noted. Brother No problems noted. Social History Smoking/Tobacco Use Status: Former Tobacco Use Alcohol Intake: never Drug use: Never Substance use type: does not use Current gender identity: female Do you feel safe at home: Yes Do you feel safe in your relationship?: Yes Exam Const General: cooperative and comfortable Nutritional Appearance: obese Orientation: oriented x3 HENMT Ears: hearing grossly normal bilaterally and hearing grossly impaired Teeth and gingiva: poor dentition Chest Chest: normal inspection of the chest Resp Effort & Inspection: normal respiratory effort and able to speak in complete sentences Auscultation: abnormal I/E ratio and diminished lung sounds Cardio Rhythm: regular rhythm Heart Sounds: murmur GI Palpation: soft and no hepatosplenomegaly Psych Appearance: disheveled Speech and Movement: speech clear Mood: dysthymic mood Attitude: cooperative Results Last Vital Signs Temp 98.1 F 10/01/19 07:57 Pulse 64 10/01/19 07:57 Resp 20 10/01/19 07:57 BP 146/84 H 10/01/19 07:57 Pulse Ox 96 10/01/19 07:57 Labs Result diagrams: 10/01/19 06:45 10/01/19 06:45 Labs: Laboratory Results - last 24 hr 09/30/19 09/30/19 09/30/19 11:05 11:05 11:05 WBC 19.38 H RBC 4.33 Hgb 14.0 Hct 40.9 MCV 94.5 MCH 32.3 MCHC 34.2 RDW 13.0 Plt Count 271 MPV 10.6 Immature Gran % 0.3 Neutrophils % 83.0 Lymphocytes % 11.1 Monocytes % 5.4 Eosinophils % 0.0 Basophils % 0.2 Absolute Neutrophils 16.09 H Absolute Lymphocytes 2.15 Absolute Monocytes 1.05 H Absolute Eosinophils 0.00 Absolute Basophils 0.04 Differential Comment RBC Morphology Sodium 131 L Potassium 4.7 Chloride 95 L Carbon Dioxide 26.7 Anion Gap 9.3 BUN 38 H Creatinine 1.25 H Estimated GFR/1.73 m2 42.75 Glucose 196 H Lactate Calcium 8.9 Magnesium 2.0 Total Bilirubin 1.6 H AST 18 ALT 16 Alkaline Phosphatase 95 Troponin I < 0.05 NT-Pro-B Natriuret Pep 2401 H Total Protein 8.3 H Albumin 3.2 L Procalcitonin 1.6 09/30/19 10/01/19 10/01/19 13:35 06:45 06:45 WBC 14.88 H RBC 3.89 L Hgb 12.5 Hct 37.3 MCV 95.9 H MCH 32.1 MCHC 33.5 RDW 12.9 Plt Count 211 MPV 10.9 Immature Gran % 0.2 Neutrophils % 78.7 Lymphocytes % 13.8 Monocytes % 6.6 Eosinophils % 0.6 Basophils % 0.1 Absolute Neutrophils 11.71 H Absolute Lymphocytes 2.05 Absolute Monocytes 0.98 H Absolute Eosinophils 0.09 Absolute Basophils 0.01 Differential Comment Agrees w/ instrument RBC Morphology Normal Sodium 133 L Potassium 4.5 Chloride 99 Carbon Dioxide 24.5 Anion Gap 9.5 BUN 22 H D Creatinine 0.82 Estimated GFR/1.73 m2 >= 60.00 Glucose 200 H Lactate 2.1 H* Calcium 8.5 Magnesium 1.7 L Total Bilirubin AST ALT Alkaline Phosphatase Troponin I NT-Pro-B Natriuret Pep Total Protein Albumin Procalcitonin 10/01/19 08:22 WBC RBC Hgb Hct MCV MCH MCHC RDW Plt Count MPV Immature Gran % Neutrophils % Lymphocytes % Monocytes % Eosinophils % Basophils % Absolute Neutrophils Absolute Lymphocytes Absolute Monocytes Absolute Eosinophils Absolute Basophils Differential Comment RBC Morphology Sodium Potassium Chloride Carbon Dioxide Anion Gap BUN Creatinine Estimated GFR/1.73 m2 Glucose Lactate 1.2 Calcium Magnesium Total Bilirubin AST ALT Alkaline Phosphatase Troponin I NT-Pro-B Natriuret Pep Total Protein Albumin Procalcitonin
[2019-10-01 08:54] LABS: Bilirubin, Total 1.3 mg/dL (0.2-1.0)
[2019-10-01] MEDS: Nystatin POWDER 15 GM JAR TP (10:26)
[2019-10-01] MEDS: Furosemide 80 MG TAB PO (10:28)
[2019-10-01] MEDS: Spironolactone 25 MG TAB PO (10:28)
[2019-10-01] MEDS: MAGNESIUM SULFATE 2 GM/50 ML BAG IVPB (10:29)
--- NOTE | 2019-10-01 12:04 | PGE_ITS ---
Date of Service Date of service: 10/01/19 Time of Service: 12:05 Assessment and Plan Assessment and plan (1) CAP (community acquired pneumonia): Start date: 10/01/19 Start time: 12:09 Status: Acute Assessment and plan: Cough improving. LS with crackles fine lower bases. IVF dcd, WBC improving, lactate down from 2.1 to 1.2, afebrile, oxygen level on RA 96% Continue doxy and rocephin day 2 Blood cultures pending Sputum culture-has not been obtained Nebs, updrafts, ics, acapella, antitussives (2) BABATUNDE (acute kidney injury): Start date: 10/01/19 Start time: 12:12 Status: Resolved Assessment and plan: Resolved. Creatinie normalized. Dc IVF, resume lasix and spirlac. Monitor bmp daily (3) Hypothyroidism: Start date: 10/01/19 Start time: 12:13 Status: Chronic Assessment and plan: Continue home dose levothyroxine (4) Coronavirus infection: Start date: 10/01/19 Start time: 12:14 Status: Suspected Assessment and plan: Pending, Patient continues to be afebrile, not hypoxic, unlikely however high risk, will r/o COVID 19 (5) Type 2 diabetes mellitus with diabetic neuropathy: Start date: 10/01/19 Start time: 12:16 Status: Chronic Assessment and plan: Fingersticks in 200's will increase SSI to resistant and continue [facility] fingersticks. 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 Continue home meds on patient (7) Atrial fibrillation: Start date: 10/01/19 Start time: 12:22 Status: Chronic Assessment and plan: continue apixaban, patient diaphoretic, afebrile, oxygen 96%. fingerstick over 200, will do EKG r/o ischemic event or afib RVR. Vital machine with HR 86. (8) DVT prophylaxis: Start date: 10/01/19 Start time: 12:24 Status: Acute Assessment and plan: On apixaban (9) Discharge planning issues: Start date: 10/01/19 Start time: 12:24 Status: Acute Assessment and plan: [facility]. Above case discussed with Dr. Knapp who is in agreement. (10) Diaphoresis: Start date: 10/01/19 Start time: 12:24 Status: Acute Assessment and plan: see above Subjective Subjective Patient reports: no new complaints Interval history since last seen: Patient is feeling better though she is diaphoretic. Cough improving. She denies pain, nvd. Afebrile, bgl 218. Will do EKG to r/o ischemic disease or RVR, she is currently in resp m/s unit d/t covid r/o however will place on heart monitor if any concerning EKG changes. Exam Const General: cooperative, healthy appearing, no acute distress and ill appearing chronically Nutritional Appearance: overweight Orientation: alert, awake and oriented x3 Limitations: language barrier ([place] can read lips and reading writing on paper) HENMT Head: normal to inspection, normocephalic and atraumatic Ears: hearing grossly abnormal bilaterally and hearing grossly impaired Eyes General: appearance normal, both eyes and all related structures Conjunctivae: conjunctivae normal Pupils: PERRL Neck Neck: normal visual inspection and trachea midline Thyroid: thyroid normal Lymphatic: no lymphadenopathy noted and no lymphedema noted Chest Chest: normal inspection of the chest Resp Effort & Inspection: normal respiratory effort, able to speak in complete sentences and cough Quality of cough: productive Auscultation: crackles (fine bilateral) and diminished lung sounds Cardio Jugular venous pressure: no JVD Palpation: normal PMI Rhythm: abnormal rhythm irregularly irregular Heart Sounds: S1 normal and S2 normal GI Inspection: normal to inspection Palpation: soft and no hepatosplenomegaly Auscultation: normal bowel sounds General: deferred Back/Spine/Pelvis Back: no CVA tenderness Cervical Spine: normal cervical lordosis Thoracic/Lumbar Spine: thoracic and lumbar spine normal to inspection Pelvis: no pain with anterior-posterior compression Skin General skin exam: no rashes or lesions noted Trauma: no lacerations or abrasions Neuro General: patient alert, patient awake and patient oriented x3 Cognition: normal cognition Extrem General: normal to inspection and edema (trace) Laterality: bilateral Other: chronic vascular discoloration Psych Appearance: grossly normal and disheveled Objective Objective Clinical Data: Abnormal lab results 09/30/19 10/01/19 10/01/19 Range/Units 13:35 06:45 06:45 WBC 14.88 H (4.4-10.8) k/cumm RBC 3.89 L (4.00-5.20) m/cumm MCV 95.9 H (80-95) fL Absolute Neutrophils 11.71 H (1.2-6.7) k/cumm Absolute Monocytes 0.98 H (0.11-0.7) k/cumm Sodium 133 L (136-145) mmol/L BUN 22 H D (7-18) mg/dL Glucose 200 H (74-106) mg/dL Lactate 2.1 H* (0.6-1.4) mmol/L Magnesium 1.7 L (1.8-2.4) mg/dL Total Bilirubin (0.2-1.0) mg/dL 10/01/19 Range/Units 08:22 WBC (4.4-10.8) k/cumm RBC (4.00-5.20) m/cumm MCV (80-95) fL Absolute Neutrophils (1.2-6.7) k/cumm Absolute Monocytes (0.11-0.7) k/cumm Sodium (136-145) mmol/L BUN (7-18) mg/dL Glucose (74-106) mg/dL Lactate (0.6-1.4) mmol/L Magnesium (1.8-2.4) mg/dL Total Bilirubin 1.3 H (0.2-1.0) mg/dL Vital Signs Temperature 36.6 C 10/01/19 10:21 Temperature Source Tympanic 10/01/19 10:21 Pulse 65 10/01/19 10:21 Pulse Rhythm Regular 10/01/19 01:19 Pulse 69 09/30/19 12:46 Respiratory Rate 24 10/01/19 10:21 Respiratory Effort 10/01/19 07:50 Respiratory Depth Normal 10/01/19 07:50 Respiratory Pattern Normal 10/01/19 07:50 Blood Pressure 152/95 H 10/01/19 10:21 Blood Pressure Mean 52 09/30/19 12:46 Blood Pressure Position Sitting 09/30/19 10:33 Pulse Oximetry 98 10/01/19 11:23 Oxygen Delivery Method Nasal Cannula 10/01/19 11:23 Oxygen Flow Rate 2 10/01/19 11:23 Pain Level 0 10/01/19 05:12 Intake & Output 09/30/19 10/01/19 10/01/19 23:59 11:59 23:59 Intake Total 1450 / 1450 460 / 460 Balance 1450 / 1450 460 / 460 Weight 85.45 kg Intake: IV 1250 / 1250 100 / 100 Oral 200 / 200 360 / 360 Other: Urine Color Yellow Yellow Urine Appearance Clear Clear Urine Odor None None Comment Incontinent large amount, saturated brief. Voiding Methods Diaper Diaper Laboratory Results WBC 14.88 k/cumm (4.4-10.8) H 10/01/19 06:45 RBC 3.89 m/cumm (4.00-5.20) L 10/01/19 06:45 Hgb 12.5 g/dL (12.0-15.5) 10/01/19 06:45 Hct 37.3 % (36.0-46.0) 10/01/19 06:45 MCV 95.9 fL (80-95) H 10/01/19 06:45 MCH 32.1 pg (27.0-33.0) 10/01/19 06:45 MCHC 33.5 g/dL (32.0-36.0) 10/01/19 06:45 RDW 12.9 % (11.7-14.6) 10/01/19 06:45 Plt Count 211 x1000/uL (130-400) 10/01/19 06:45 MPV 10.9 fL (8.0-11.0) 10/01/19 06:45 Immature Gran % 0.2 % 10/01/19 06:45 Neutrophils % 78.7 10/01/19 06:45 Lymphocytes % 13.8 10/01/19 06:45 Monocytes % 6.6 10/01/19 06:45 Eosinophils % 0.6 10/01/19 06:45 Basophils % 0.1 10/01/19 06:45 Absolute Neutrophils 11.71 k/cumm (1.2-6.7) H 10/01/19 06:45 Absolute Lymphocytes 2.05 k/cumm (1.2-3.4) 10/01/19 06:45 Absolute Monocytes 0.98 k/cumm (0.11-0.7) H 10/01/19 06:45 Absolute Eosinophils 0.09 k/cumm (0.0-0.7) 10/01/19 06:45 Absolute Basophils 0.01 k/cumm (0.0-0.2) 10/01/19 06:45 Differential Comment Agrees w/ instrument 10/01/19 06:45 RBC Morphology Normal 10/01/19 06:45 Sodium 133 mmol/L (136-145) L 10/01/19 06:45 Potassium 4.5 mmol/L (3.5-5.1) 10/01/19 06:45 Chloride 99 mmol/L (98-107) 10/01/19 06:45 Carbon Dioxide 24.5 mmol/L (21.0-32.0) 10/01/19 06:45 Anion Gap 9.5 mmol/L (3-11) 10/01/19 06:45 BUN 22 mg/dL (7-18) H D 10/01/19 06:45 Creatinine 0.82 mg/dL (0.55-1.02) 10/01/19 06:45 Estimated GFR/1.73 m2 >= 60.00 (mL/min/1.73m2) 10/01/19 06:45 Glucose 200 mg/dL (74-106) H 10/01/19 06:45 Lactate 1.2 mmol/L (0.6-1.4) 10/01/19 08:22 Calcium 8.5 mg/dL (8.5-10.1) 10/01/19 06:45 Magnesium 1.7 mg/dL (1.8-2.4) L 10/01/19 06:45 Total Bilirubin 1.3 mg/dL (0.2-1.0) H 10/01/19 08:22 AST 18 U/L (15-37) 09/30/19 11:05 ALT 16 U/L (14-59) 09/30/19 11:05 Alkaline Phosphatase 95 U/L (46-116) 09/30/19 11:05 Troponin I < 0.05 ng/Ml (<0.06) 09/30/19 11:05 NT-Pro-B Natriuret Pep 2401 pg/mL (<300) H 09/30/19 11:05 Total Protein 8.3 g/dL (6.4-8.2) H 09/30/19 11:05 Albumin 3.2 g/dL (3.4-5.0) L 09/30/19 11:05 Procalcitonin 1.6 ng/mL 09/30/19 11:05
[2019-10-01 13:32] LABS: Troponin I < 0.05 ng/Ml (<0.06)
--- NOTE | 2019-10-01 13:56 | NUR.NOTE ---
1350-Pt was transferred to med/surg isolation room #228 via stretcher. A clean gown, clean sheet covering and a face mask was applied to the patient just prior to transferring out of this respiratory unit. Hand off report was given and accepted by Venu Coombs RN med/surg clinical coordinator prior to this patient being transferred. VSS, patient alert and oriented x3 and to situation/plans of transfer prior to moving her out of the respiratory care unit.
--- NOTE | 2019-10-01 14:13 | NUR.NOTE ---
Nursing Note: 1410: pt arrives from [facility] with insulin pen in hand under white sheet. this scribe calls pharmacy to see if med should remain in pt room as pt is a PUI rule out. Leandro Dash requests insulin pen remain in pt room at this time. the scribe confirms insulin pen to remain in room per pharmacy; Leandro Dash states yes, at this time.
[2019-10-01] MEDS: cefTRIAXone 1 GM/50 ML BAG IVPB (14:23)
[2019-10-01] MEDS: Normal Saline Flush 10 ML SYR IVP (14:24)
--- NOTE | 2019-10-01 14:50 | W.NUTCONSULT ---
Date of service: 10/01/19 Time of Service: 14:50 Nutritional Consult ASSESSMENT: 69 year old female admitted with diphoresis, PNA, BABATUNDE, PNA, resident of [facility]. BMI indicates class 2 obesity. Following Diabetic Diet with 100% completion at most meals. CDE aware of DM consult. Not at nutritional risk at this time. will follow prn. MONITORING AND EVALUATION: labs, weight, po intake Time Spent in Nutritional Counseling and Treatment: 0 time spent face to face
--- NOTE | 2019-10-01 15:28 | PHA.ADMREV ---
Pharmacy Clinical Review - Admission Clinical Review (Last Reviewed 09/30/19 @ 14:55 by Sneha Mcnair NP) Diaphoresis (Acute) Pneumonia (Acute) CAP (community acquired pneumonia) (Acute) DVT prophylaxis (Acute) Discharge planning issues (Acute) No Known Allergies Allergy (Verified 09/30/19 10:40) Height 5 ft 1 in Weight 85.45 kg - Renal Dosing Renal Dosing: BUN 22 mg/dL (7-18) H D 10/01/19 06:45 Creatinine 0.82 mg/dL (0.55-1.02) 10/01/19 06:45 Medications needing adjustments: Reviewed (Crcl ~66.1 mL/min using adjusted body weight. Current meds okay) - Anticoagulation Anticoagulation: Hgb 12.5 g/dL (12.0-15.5) 10/01/19 06:45 Hct 37.3 % (36.0-46.0) 10/01/19 06:45 Plt Count 211 x1000/uL (130-400) 10/01/19 06:45 Creatinine 0.82 mg/dL (0.55-1.02) 10/01/19 06:45 DVT Prohphylaxis: N/A Therapeutic Anticoagulation: Reviewed Medications: Apixaban - Opiate Usage Evaluate Pain Scale/Pains Meds: Reviewed Scheduled Bowel Reg ordered if on Opiates?: No (has prn meds ordered) - Relevant Labs Sodium 133 mmol/L (136-145) L 10/01/19 06:45 Potassium 4.5 mmol/L (3.5-5.1) 10/01/19 06:45 Chloride 99 mmol/L (98-107) 10/01/19 06:45 Magnesium 1.7 mg/dL (1.8-2.4) L 10/01/19 06:45 Electrolytes, C-Reactive P, ESR: Reviewed (Sodium about baseline per progress note, mag replacement given) - Antimicrobial Stewardship Antibiotic appropriateness: Reviewed (doxycycline and ceftriaxone (day 2)) Surgical Abx d/c within 24 hr: N/A Culture review/Resistance: Reviewed (blood cultures no growth @24 hours, rapid flu negative) - DM Control DM Control: Glucose 200 mg/dL (74-106) H 10/01/19 06:45 Finger Stick Blood Glucose 205 Finger Stick Blood Glucose 205 Finger Stick Blood Glucose 218 Finger Stick Blood Glucose 218 Insulin Dosing: Reviewed (sliding scale insulin ordered) - Heart Failure/WY Heart Failure/WY: Troponin I < 0.05 ng/Ml (<0.06) 10/01/19 13:00 NT-Pro-B Natriuret Pep 2401 pg/mL (<300) H 09/30/19 11:05 EF%, JESSIE's, B-Blockers, Diuretics: Reviewed (furosemide, losartan, metoprolol, spironolactone) - BP Control BP Control: Blood Pressure 157/92 Blood Pressure 126/82 Blood Pressure 152/95 Blood Pressure 146/84 Blood Pressure 132/75 If elevated: Reviewed - QTc Review If Elevated: Reviewed (QTc 448) - IV to PO Switch IV Medications: N/A - Home Meds Home Med List reviewed: Reviewed (separate admin of levothyroxine from magnesium oxide) Relevent Home Meds Not ordered & why?: humulin and insulin regular (has sliding scale insulin aspart ordered), metformin - Current meds Current Medication Order Review: Intervened (fixed ropinirole and tramadol orders as dosing instructions didnt match what was ordered) - Comments Comments/Follow Ups: watch BG, serology for COVID results, culture results
[2019-10-01] MEDS: Acetaminophen 325 MG TAB PO (16:58)
[2019-10-01] MEDS: rOPINIRole 1 MG TAB 2 MG PO (19:27)
[2019-10-02] VITALS (8 sets, daily range): BP systolic 124–149; BP diastolic 73–89; PULSE 57–64; RESP 4–26; TEMP 36.4–36.7; O2SAT 93–98
[2019-10-02] MEDS: Normal Saline Flush 10 ML SYR IVP ×2 (00:16→19:15)
[2019-10-02] MEDS: DOXYCYCLINE 100 MG in Normal Saline 100 ML IVPB ×3 (00:16→23:12)
[2019-10-02] MEDS: guaiFENesin 600 MG TABCR PO ×2 (05:48→15:23)
[2019-10-02] MEDS: Levothyroxine 50 MCG TAB PO (05:48)
[2019-10-02 07:01] LABS: Abs Immature Grans 0.04 k/cumm (0.0-0.09); HCT 37.3 % (36.0-46.0); HGB 12.9 g/dL (12.0-15.5); Mean Corp. HGB Concentration 34.6 g/dL (32.0-36.0); Mean Corpuscular Hemoglobin 32.6 pg (27.0-33.0); Mean Corpuscular Volume 94.2 fL (80-95); Mean Platelet Volume 10.6 fL (8.0-11.0); Platelet Count 219 x1000/uL (130-400); RBC 3.96 m/cumm (4.00-5.20); RBC Distribution Width 12.7 % (11.7-14.6)
[2019-10-02 07:07] LABS: BUN 20 mg/dL (7-18); CREATININE 0.79 mg/dL (0.55-1.02); Chloride 97 mmol/L (98-107); Glucose 176 mg/dL (74-106); Potassium 4.1 mmol/L (3.5-5.1); Sodium 130 mmol/L (136-145)
[2019-10-02 07:32] LABS: Atypical Lymphocytes % 2
[2019-10-02 07:33] LABS: Diff Comment Manual Differential; RBC Morphology Normal
[2019-10-02 08:26] LABS: COVID-19 RT-PCR Result Not Detected (NotDetected)
[2019-10-02] MEDS: Magnesium Oxide 400 MG TAB 800 MG PO ×2 (08:54→19:15)
[2019-10-02] MEDS: Metoprolol 25 MG TAB PO ×2 (08:55→19:14)
[2019-10-02] MEDS: Losartan 50 MG TAB 100 MG PO (08:55)
[2019-10-02] MEDS: Apixaban 5 MG TAB PO ×2 (08:56→19:14)
[2019-10-02] MEDS: Cholecalciferol (Vitamin D3) 400 UNIT TAB 800 UNIT PO (08:57)
[2019-10-02] MEDS: Atorvastatin 40 MG TAB PO (08:57)
[2019-10-02] MEDS: FLUoxetine 20 MG CAP 40 MG PO (08:58)
[2019-10-02] MEDS: Benzonatate 100 MG CAP PO ×3 (08:58→19:14)
[2019-10-02] MEDS: Spironolactone 25 MG TAB PO (08:58)
[2019-10-02] MEDS: Insulin Aspart 300 UNITS/3 ML PEN SC ×3 (08:59→16:51)
[2019-10-02] MEDS: Furosemide 80 MG TAB PO (08:59)
--- NOTE | 2019-10-02 10:24 | W.INDIABCONS ---
Date of service: 10/02/19 Time of Service: 10:25 Diabetes Inpatient Consult DESCRIPTION/ASSESSMENT: Appreciate diabetes consult for Madison Hoyos who is well known to outpatient diabetes as well as recent inpatient visits. A1c >14 BMI 35 GFR >60 Blood sugars this hospitalization all in 200s with 181 this AM taking moderate insulin correction only. Usual insulin load 40u NPH twice daily. It appears moderate insulin correction is not fully correcting blood sugars, but decreasing blood sugars gradually eating minimally this AM 30grams carbohydrate at breakfast. Blood sugars do not reflect A1c even with less than half her usual total daily insulin dosing. Reconciling A1c with blood sugars and insulin management is puzzling. Unsure of her insulin management prior to [facility] while living at home. INTERVENTION: Mdaison has had self management support on an ongoing basis now cared for by [facility]iary. No self management intervention offered at this time. She may benefit from a lower dose of basal insulin during this hospitalization if improved glycemic control is desired for this 69 year old with multiple chronic conditions. PLAN: Will follow blood sugars. Suggest addition of basal insulin at 1/4 her usual dose of 40 units BID - suggesting 20units basal insulin Time Spent in Nutritional Counseling and Treatment: 0 minutes face to face
[2019-10-02] MEDS: Albuterol 2.5 MG/3 ML INH SOLN VIAL UPD ×2 (10:30→19:29)
[2019-10-02] MEDS: cefTRIAXone 1 GM/50 ML BAG IVPB (13:32)
--- NOTE | 2019-10-02 14:25 | PDOC.CMIN ---
- If Service Date Differs Date of service: 10/02/19 Time of Service: 14:25 Care Management Initial Assess PAST MEDICAL HISTORY/PAST SURGICAL HISTORY:: Medical History: Amputated toe (Chronic). GANGRENOUS. 2ND AND 3RD RIGHT TOES 11/14/17. Amputated toe of right foot (Chronic). Arthritis (Chronic). Atrial fibrillation (Chronic). Atrial fibrillation (Chronic 04/13/17). Bilateral lower leg cellulitis (Chronic 05/29/14). a. right worse than left. Cataract (Chronic). mild; Fine Drusen in macula-OD. S/P SURGERY. Cellulitis of leg (Chronic 10/31/14). Depression (Chronic). Depressive disorder (Chronic). Displaced bimalleolar fracture of right ankle (Chronic 05/29/14). DJD of shoulder (Chronic). a. on right. Elev transaminase/LDH (Chronic 01/09/13). Essential hypertension (Chronic 06/22/13). 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 Fracture of lumbar spine (Chronic 11/15/13). L3. Gout (Chronic 03/27/13). H/O fracture of ankle (Chronic). s. Left ankle 2011. Hearing loss (Chronic). Hearing loss (Chronic). BILATERAL AIDS. difficulties w/ the hearing aids. History of tobacco use (Chronic). a. quit in 1995 after approximately 30 pack years. Hyperlipidemia (Chronic). Hypertension (Chronic). Hypothyroidism (Chronic). Hypothyroidism (Chronic 01/09/13). Increased body mass index (Chronic). Insomnia (Chronic). 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 Morbid obesity (Chronic). 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 CPAP. Osteoarthritis (Chronic). right shoulder AC-DJD, Glenohumoral jt. DJD; Left knee-mild DJD; Left-severe DJD; Right-hip mild DJD. Otosclerosis (Chronic 10/14/14). Polycythemia (Chronic 03/08/17). Pulmonary hypertension (Chronic 04/13/17). Pulmonary hypertension due to sleep-disordered breathing (Chronic). Restless legs syndrome (Chronic). Sciatica (Chronic). right; xray from 02/10 showed scattered spondylosis ant L4-5 on the left and mid lumbar scoliosis convex to the right. 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 Sleep apnea with use of continuous positive airway pressure (CPAP) (Chronic). Toe gangrene (Chronic). Transient ischemic attack (Chronic). Type 2 diabetes mellitus with diabetic neuropathy (Chronic 05/13/15). SEEN ENDOCRINE AT [facility] [place]. Venous stasis (Chronic). Vitamin D deficiency (Chronic 05/07/15) PREVIOUS FUNCTIONAL STATUS/SOCIAL/FAMILY SUPPORTS:: Madison is currently a patient at the [facility]. Her spouse is also at the [facility]. Prior to the [facility] she resides in [place] with her spouse. She has no children, she does not drive and she is hearing impaired. CURRENT FUNCTIONAL STATUS:: Madison is alert when CM in the room she is currently being treated for pneumonia she ruled out for covid 19. Madison will return to the [facility] when she is medically cleared. ADVANCE DIRECTIVES:: COLST form Has patient been provided with information about the portal?: Yes Did the patient sign up for the portal?: No CODE STATUS:: DNR/DNI INSURANCE COVERAGE / FINANCIAL ISSUES:: Medicare and BCBS CURRENT HOME/COMMUNITY SERVICES/EQUIPMENT:: Resides at the [facility] all services through rehab PRIMARY CARE PHYSICIAN:: POTENTIAL DISCHARGE NEEDS:: Return to the [facility] when medically ready and follow up by her provider as directed. PATIENT/FAMILY EDUCATION NEEDS:: Discharge education, limitations and follow up plan of care. ANTICIPATED BARRIERS TO DISCHARGE:: Madison continues to improve anticpate no barriers to her discharge plan. TRANSPORTATION:: Via [facility] W/C van PLAN:: Madison remains acute no change in status today. CM faxed updated to the [facility] and anticipate she will be able to return to the [facility] in the next few days. CM to continue to assess ongoing discharge needs and coordiantion disposition.
--- NOTE | 2019-10-02 15:13 | W.PM.PROGNOT ---
Date of Service Date of service: 10/02/19 Time of Service: 15:13 Assessment and Plan Assessment and plan (1) CAP (community acquired pneumonia): Status: Acute Assessment and plan: improving, oxygenating well on room air, white count resolved. afebrile, hemodynamically stable. Continue doxy and rocephin day 3 Blood cultures negative to date Nebs, updrafts, ics, acapella, antitussives (2) BABATUNDE (acute kidney injury): Status: Resolved Assessment and plan: resolved. monitor BMP routine (3) Coronavirus infection: Status: Suspected Assessment and plan: ruled out (4) Diabetic ketoacidosis associated with type 2 diabetes mellitus: Status: Acute Assessment and plan: continue diabetic diet, continue current regimen. check finger sticks ac/hs and cover as needed. clinical nurse educator following. will likely be discharge on previous home regimen Qualifiers: Diabetes mellitus complication detail: without coma Qualified Code(s): E11.10 - Type 2 diabetes mellitus with ketoacidosis without coma (5) Atrial fibrillation: Status: Chronic Assessment and plan: rate controlled. continue home medications. is anticoagulated on apixaban. (6) DVT prophylaxis: Status: Acute Assessment and plan: fully anticoagulated on apixaban (7) Discharge planning issues: Status: Acute Assessment and plan: [facility] if remains medically stable. Subjective Subjective Patient reports: no new complaints and feels better Interval history since last seen: patient reports she is feeling better. still have moist cough. good oral intake, no fevers, white count normalized. Exam Const General: cooperative, comfortable, no acute distress and ill appearing chronically Nutritional Appearance: overweight Orientation: alert, awake and oriented x3 Limitations: other limitations (hearing impairment) [facility] Head: normal to inspection, normocephalic and atraumatic Mouth: oral mucosae normal Resp Effort & Inspection: normal respiratory effort, able to speak in complete sentences and other (moist loose cough) Auscultation: rhonchi lower bilaterally and no wheezes GI Inspection: obesity Palpation: soft Auscultation: normal bowel sounds Skin General skin exam: no rashes or lesions noted Neuro General: patient alert, patient awake and patient oriented x3 Cognition: normal cognition Speech: speech normal Psych Appearance: grossly normal Mental Status: mental status grossly normal Speech and Movement: speech and movement normal Affect: normal affect Attitude: cooperative Thought Process: normal Thought Content: normal Insight: insight good Judgment: judgment good Objective Objective Clinical Data: Abnormal lab results 10/02/19 10/02/19 Range/Units 06:40 06:40 RBC 3.96 L (4.00-5.20) m/cumm Sodium 130 L (136-145) mmol/L Chloride 97 L (98-107) mmol/L BUN 20 H (7-18) mg/dL Glucose 176 H (74-106) mg/dL Vital Signs Temperature 36.7 C 10/02/19 15:02 Temperature Source Tympanic 10/02/19 15:02 Pulse 57 L 10/02/19 15:02 Pulse Rhythm Irregular 10/02/19 08:50 Pulse 69 09/30/19 12:46 Respiratory Rate 20 10/02/19 15:02 Respiratory Effort 10/02/19 10:32 Respiratory Depth Shallow 10/02/19 10:32 Respiratory Pattern Normal 10/02/19 10:32 Blood Pressure 125/82 10/02/19 15:02 Blood Pressure Mean 52 09/30/19 12:46 Blood Pressure Position Sitting 09/30/19 10:33 Pulse Oximetry 96 10/02/19 15:02 Oxygen Delivery Method Room Air 10/02/19 15:02 Oxygen Flow Rate 0 10/02/19 15:02 Pain Level 0 10/02/19 15:02 Intake & Output 10/01/19 10/02/19 10/02/19 23:59 11:59 23:59 Intake Total 1540 / 1999 890 / 890 Output Total 200 / 200 Balance 1540 / 1999 890 / 690 -200 / 690 Weight 85.3 kg Intake: IV 1100 / 1200 150 / 150 Oral 440 / 800 740 / 740 Output: Urine 200 / 200 Other: Urine Color Yellow Yellow Urine Appearance Clear Clear Urine Odor Normal Comment Diaaper soaked with large incontinent urine changed at this time. Incontinent large amount of urine. Voiding Methods Diaper Incontinent Diaper Incontinent Incontinent Laboratory Results WBC 10.00 k/cumm (4.4-10.8) D 10/02/19 06:40 RBC 3.96 m/cumm (4.00-5.20) L 10/02/19 06:40 Hgb 12.9 g/dL (12.0-15.5) 10/02/19 06:40 Hct 37.3 % (36.0-46.0) 10/02/19 06:40 MCV 94.2 fL (80-95) 10/02/19 06:40 MCH 32.6 pg (27.0-33.0) 10/02/19 06:40 MCHC 34.6 g/dL (32.0-36.0) 10/02/19 06:40 RDW 12.7 % (11.7-14.6) 10/02/19 06:40 Plt Count 219 x1000/uL (130-400) 10/02/19 06:40 MPV 10.6 fL (8.0-11.0) 10/02/19 06:40 Immature Gran % 0.0 % 10/02/19 06:40 Neutrophils % 62.0 10/02/19 06:40 Lymphocytes % 23.0 10/02/19 06:40 Atypical Lymphs % 2 10/02/19 06:40 Monocytes % 7.0 10/02/19 06:40 Eosinophils % 6.0 10/02/19 06:40 Basophils % 0.0 10/02/19 06:40 Absolute Neutrophils 6.20 k/cumm (1.2-6.7) 10/02/19 06:40 Absolute Lymphocytes 2.50 k/cumm (1.2-3.4) 10/02/19 06:40 Absolute Monocytes 0.70 k/cumm (0.11-0.7) 10/02/19 06:40 Absolute Eosinophils 0.60 k/cumm (0.0-0.7) 10/02/19 06:40 Absolute Basophils 0.00 k/cumm (0.0-0.2) 10/02/19 06:40 Differential Comment Manual differential 10/02/19 06:40 RBC Morphology Normal 10/02/19 06:40 Sodium 130 mmol/L (136-145) L 10/02/19 06:40 Potassium 4.1 mmol/L (3.5-5.1) 10/02/19 06:40 Chloride 97 mmol/L (98-107) L 10/02/19 06:40 Carbon Dioxide 25.0 mmol/L (21.0-32.0) 10/02/19 06:40 Anion Gap 8.0 mmol/L (3-11) 10/02/19 06:40 BUN 20 mg/dL (7-18) H 10/02/19 06:40 Creatinine 0.79 mg/dL (0.55-1.02) 10/02/19 06:40 Estimated GFR/1.73 m2 >= 60.00 (mL/min/1.73m2) 10/02/19 06:40 Glucose 176 mg/dL (74-106) H 10/02/19 06:40 Lactate 1.2 mmol/L (0.6-1.4) 10/01/19 08:22 Calcium 9.0 mg/dL (8.5-10.1) 10/02/19 06:40 Magnesium 1.7 mg/dL (1.8-2.4) L 10/01/19 06:45 Total Bilirubin 1.3 mg/dL (0.2-1.0) H 10/01/19 08:22 AST 18 U/L (15-37) 09/30/19 11:05 ALT 16 U/L (14-59) 09/30/19 11:05 Alkaline Phosphatase 95 U/L (46-116) 09/30/19 11:05 Troponin I < 0.05 ng/Ml (<0.06) 10/01/19 13:00 NT-Pro-B Natriuret Pep 2401 pg/mL (<300) H 09/30/19 11:05 Total Protein 8.3 g/dL (6.4-8.2) H 09/30/19 11:05 Albumin 3.2 g/dL (3.4-5.0) L 09/30/19 11:05 Procalcitonin 1.6 ng/mL 09/30/19 11:05 Coronavirus (PCR) Not detected (NotDetected) 09/30/19 11:05
--- NOTE | 2019-10-02 16:09 | CHAPLAIN ---
Madison and I know each other from previous admissions. She is currently living at the [facility]. Her is there too. Madison said she has been moved around in the hospital during this admission, and is starting to feel better now. She has difficulty hearing, so the conversation was short and loud.
[2019-10-02] MEDS: rOPINIRole 1 MG TAB 2 MG PO (19:14)
[2019-10-02] MEDS: traMADol 50 MG TAB PO (19:14)
[2019-10-02] MEDS: Nystatin POWDER 15 GM JAR TP (19:15)
[2019-10-02] MEDS: rOPINIRole 1 MG TAB 3 MG PO (20:36)
[2019-10-03 03:46] VITALS: BP 124/79; PULSE 61; RESP 19; TEMP 36.7; O2SAT 95
[2019-10-03] MEDS: guaiFENesin 600 MG TABCR PO (05:04)
[2019-10-03] MEDS: Levothyroxine 50 MCG TAB PO (05:04)
[2019-10-03 07:23] LABS: Abs Immature Grans 0.07 k/cumm (0.0-0.09); Absolute Basophil Count 0.03 k/cumm (0.0-0.2); Absolute Lymphocyte Count 2.26 k/cumm (1.2-3.4); Absolute Monocyte Count 0.62 k/cumm (0.11-0.7); Basophils % 0.3; Eosinophils % 3.5; HCT 37.5 % (36.0-46.0); Immature Grans % 0.8 %; Lymphocytes % 26.3; Mean Corp. HGB Concentration 34.7 g/dL (32.0-36.0); Mean Corpuscular Hemoglobin 32.5 pg (27.0-33.0); Mean Corpuscular Volume 93.8 fL (80-95); Mean Platelet Volume 10.5 fL (8.0-11.0); Monocytes % 7.2; Neutrophils % 61.9; Platelet Count 254 x1000/uL (130-400); RBC Distribution Width 12.6 % (11.7-14.6); White Blood Cell Count 8.58 k/cumm (4.4-10.8)
[2019-10-03 07:34] LABS: Anion Gap 9.2 mmol/L (3-11); BUN 20 mg/dL (7-18); CO2 24.8 mmol/L (21.0-32.0); CREATININE 0.82 mg/dL (0.55-1.02); Calcium 8.8 mg/dL (8.5-10.1); Chloride 96 mmol/L (98-107); Glucose 208 mg/dL (74-106); Potassium 4.2 mmol/L (3.5-5.1); Sodium 130 mmol/L (136-145)
[2019-10-03 07:57] VITALS: BP 133/83; PULSE 56; RESP 18; TEMP 36.8; O2SAT 94
[2019-10-03] MEDS: Normal Saline Flush 10 ML SYR IVP (08:23)
[2019-10-03] MEDS: Nystatin POWDER 15 GM JAR TP (08:24)
[2019-10-03] MEDS: FLUoxetine 20 MG CAP 40 MG PO (08:24)
[2019-10-03] MEDS: Polyethylene Glycol 3350 17 GM PACKET PO (08:24)
[2019-10-03] MEDS: Magnesium Oxide 400 MG TAB 800 MG PO (08:24)
[2019-10-03] MEDS: Benzonatate 100 MG CAP PO (08:25)
[2019-10-03] MEDS: Apixaban 5 MG TAB PO (08:25)
[2019-10-03] MEDS: Furosemide 80 MG TAB PO (08:25)
[2019-10-03] MEDS: Cholecalciferol (Vitamin D3) 400 UNIT TAB 800 UNIT PO (08:25)
[2019-10-03] MEDS: Metoprolol 25 MG TAB PO (08:25)
[2019-10-03] MEDS: Spironolactone 25 MG TAB PO (08:25)
[2019-10-03] MEDS: Losartan 50 MG TAB 100 MG PO (08:25)
[2019-10-03] MEDS: Atorvastatin 40 MG TAB PO (08:26)
[2019-10-03] MEDS: Insulin Aspart 300 UNITS/3 ML PEN SC (08:38)
--- NOTE | 2019-10-03 09:48 | PDOC.CMDIS ---
- If Service Date Differs Date of service: 10/03/19 Time of Service: 09:48 LACE Index Scoring Tool - Questions: Length of Stay (in days): 3 Acuity (Admit via E.D.?): Yes Comorbidities: Diabetes w/o Complication, Mild Liver/Renal Disease E.D. Visits: 5 - Answers: Total Score: 13 Risk of Readmission: High Risk Care Management Discharge Reason for Hospitalization: Pneumonia and Covid 19 r/o negitive Discharge Plan: Return to the [facility], she is happy with the plan she states that she wants to go back to the [facility] and considers that home. RCT has been coordinated by SANDY and will arrive at 1100. CM communicated this to primary nurse, RN CC and the [facility] to confirm the transfer. Patient/Family Education Needs: Discharge instuctions and follow up plan of care. Services Needed at Discharge: Group Home Facility, Transportation
--- NOTE | 2019-10-03 10:05 | DSE_ITS ---
Date of service: 10/03/19 Time of Service: 10:05 DS: Diagnosis Discharge Diagnosis (1) CAP (community acquired pneumonia): Status: Acute (2) BABATUNDE (acute kidney injury): Status: Resolved (3) Diabetic ketoacidosis associated with type 2 diabetes mellitus: Status: Acute (4) Atrial fibrillation: Status: Chronic Discharge Plan Disposition Patient Disposition: SNF (LEVEL 1) [facility] Condition: Fair Discharge Details Chief Complaint: RespSymp Clinical Impression: Pneumonia Reason For Visit: PNEUMONIA,COVID R/O Admit Date/Time: 09/30/19 13:56 Admit Provider: Ty Knapp Attending Provider: Ty Knapp Primary Care Provider: Jenna Rodriguez ED Provider: Mirella [facility] Course Hospital Course: this is a 69 y.o female with type 2 diabetes requiring insulin, HTN, HLD, Afib ( anticoagulated on apixaban) and falls presented to [facility] ED from [facility] for cough worsening over last 2 weeks, pleuritic chest pain and SOB. She is [place] able to read lips and read question on a paper. Labs significant for leukocytosis of 19.38 with shift up to 16.09. Lactate 2.1, procalcitonin 1.6, BABATUNDE with creatinine 1.6, hyponatremic. blood cultures taken and remained negative to date. She was afebrile and imaging revealing Patchy bilateral peripheral opacities may represent multifocal pneumonia and Unhealed fractures in the T9 vertebral body. Due to Risk factors patient was ruled out for COVID 19. SHe was treated with ceftriaxone and doxy to which she responded to. Her white count normalized, she remained afebrile and hemodynamically stable. She was oxgyenating well on room air. Her kidney functions returned to normal and IV fluids discontinued, she was eating and drinking well. She is stable and now ready for discharge back to the [facility]. She will be discharged to complete a 7 day course of antibiotics, today day 4. she will resume the rest of her medications as previously prescribed. Home Meds and New Rx's Prescriptions: New doxycycline hyclate 100 mg capsule 100 mg PO BID Qty: 7 RF: 0 cefpodoxime 200 mg tablet 200 mg PO BID Qty: 7 RF: 0 Continued (DME) blood-glucose meter [facility] [place] See Dose Instructions .ROUTE .MEDSUPPLY Qty: 1 RF: 0 (DME) lancets 28 gauge misc 1 ea Miscellaneous TID & PRN Qty: 400 RF: 12 (DME) Blood Glucose Test strip See Dose Instructions .ROUTE .MEDSUPPLY Qty: 400 RF: 5 furosemide 80 mg tablet 80 mg PO DAILY Qty: 90 RF: 5 triamcinolone acetonide 80 GM ointment 2 - 4 gm Topical BID PRNQty: 80 RF: 2 nystatin 60 GM powder 0 Topical BID Qty: 60 RF: 12 fluoxetine [Prozac] 40 MG capsule 40 mg PO QAM Qty: 90 RF: 4 (DME) insulin syringe needleless [BD Insulin Syringe Slip Tip] 1 mL syringe 1 ea Miscellaneous BID Qty: 120 RF: 12 (DME) Pen Needle 30 gauge x 5/16 needle 1 ea Miscellaneous QID Qty: 300 RF: 6 Humulin R Regular U-100 Insuln 100 unit/mL solution 15 unit Sub-Q AC MDD 75 Qty: 1000 RF: 11 atorvastatin 40 mg tablet 40 mg PO DAILY Qty: 90 RF: 12 levothyroxine 50 mcg tablet 50 mcg PO DAILY Qty: 90 RF: 12 losartan [Cozaar] 100 mg tablet 100 mg PO QAM Qty: 90 RF: 4 spironolactone 25 mg tablet 25 mg PO BID DIURETIC Qty: 180 RF: 3 ropinirole 1 mg tablet 3 mg PO HS Qty: 150 RF: 12 metformin [Glucophage XR] 750 mg tablet extended release 24 hr 750 mg PO DAILY Qty: 90 RF: 4 Eliquis 5 mg tablet 5 mg PO BID Qty: 180 RF: 12 nystatin 100,000 unit/gram powder 1 applic topical TID Qty: 60 RF: 5 acetaminophen [Tylenol] 325 MG tablet 650 mg PO Q4H PRN PRN (Reason: Pain) RF: 0 zinc oxide 20 % Ointment 60 g topical TID Qty: 0 RF: 0 clotrimazole 1 % Cream 60 g topical TID Qty: 0 RF: 0 vits A and D-white pet-lanolin Ointment 1 applic topical TID Qty: 0 RF: 0 magnesium oxide 400 MG tablet 800 mg PO BID Qty: 0 RF: 0 tramadol 50 mg Tablet 50 - 100 mg PO Q4H PRN PRN (Reason: pain) Qty: 60 RF: 0 metoprolol tartrate 50 mg Tablet 25 mg PO Q12H Qty: 60 RF: 0 Humulin N NPH Insulin KwikPen 100 unit/mL (3 mL) insulin pen 40 unit Sub-Q BID@0800,2000 Qty: 10 RF: 6 cholecalciferol (vitamin D3) [Vitamin D3] 10 mcg (400 unit) Tablet 800 unit PO DAILY RF: 0 guaifenesin [Mucinex] 600 mg Tablet Extended Release 12hr 600 mg PO .Q12 HOURS RF: 0 albuterol sulfate 2.5 mg/0.5 mL Solution For Nebulization .Q6 HOURS X1 WEEK RF: 0 Discharge Instructions Instructions: Acute Kidney Injury (DC), Bacterial Pneumonia (DC) Additional Instructions: please complete 3 more days of antibiotics to complete a 7 day course. push fluids to stay well hydrated, drink 6-8 glasses daily. Stand Alone Forms: Nursing Discharge Form Activity:: Activity as Tolerated Equipment/Supplies:: No Equipment Needed Diet:: Carb Counting Discharge Orders Discharge Orders: Discharge Order (Routine); Ordered 10/03/19 Ordered By: Evelyn Rocha Discharge Data Discharge Date/Time-TO BE ENTERED AT DEPARTURE: 10/03/19 10:55 DS: Summary Status at Discharge Functional status at discharge: uses cane/walker Overall status at discharge: patient is progressing back to baseline Mental Status: mental status grossly normal Speech and Movement: speech and movement normal Mood: congruent mood Affect: normal affect Exam Const General: cooperative, healthy appearing, comfortable and no acute distress Nutritional Appearance: average body habitus Orientation: alert, awake and oriented x3 HENMT Head: normal to inspection, normocephalic and atraumatic Mouth: oral mucosae normal Resp Auscultation: diminished lung sounds Cardio Rate: regular rate Rhythm: regular rhythm GI Inspection: normal to inspection Palpation: soft Auscultation: normal bowel sounds Skin General skin exam: no rashes or lesions noted Neuro General: patient alert, patient awake and patient oriented x3 Cognition: normal cognition Speech: speech normal Gait: normal gait Motor: muscle tone normal throughout Extrem General: normal to inspection and full ROM Psych Mental Status: mental status grossly normal Speech and Movement: speech and movement normal Mood: congruent mood Affect: normal affect DS: Data Vitals/I&O Vitals and I&O: Vital Signs Temperature 36.8 C 10/03/19 07:57 Temperature Source Temporal Artery Scan 10/03/19 07:57 Pulse 56 L 10/03/19 07:57 Pulse Rhythm Irregular 10/02/19 23:05 Pulse 69 09/30/19 12:46 Respiratory Rate 18 10/03/19 07:57 Respiratory Effort Labored 10/02/19 23:05 Respiratory Depth Shallow 10/02/19 23:05 Respiratory Pattern Tachypnea 10/02/19 23:05 Blood Pressure 133/83 10/03/19 07:57 Blood Pressure Mean 52 09/30/19 12:46 Blood Pressure Position Sitting 09/30/19 10:33 Pulse Oximetry 94 L 10/03/19 07:57 Oxygen Delivery Method Room Air 10/03/19 07:57 Oxygen Flow Rate 0 10/03/19 07:57 Pain Level 0 10/03/19 07:57 Intake & Output 10/02/19 10/02/19 10/03/19 11:59 23:59 11:59 Intake Total 890 / 1050 160 / 1050 240 / 240 Output Total 200 / 200 Balance 890 / 850 -40 / 850 240 / 240 Weight 85.3 kg 82.9 kg Intake: IV 150 / 310 160 / 310 Oral 740 / 740 240 / 240 Output: Urine 200 / 200 Other: Urine Color Yellow Yellow Straw Urine Appearance Clear Clear Clear Urine Odor Normal None Normal Comment Incontinent large amount of urine. Voiding Methods Incontinent Diaper Diaper Incontinent Incontinent Data Completed and Pending Labs on day of discharge: Labs from last 24 hours 10/03/19 10/03/19 06:48 06:48 WBC 8.58 RBC 4.00 Hgb 13.0 Hct 37.5 MCV 93.8 MCH 32.5 MCHC 34.7 RDW 12.6 Plt Count 254 MPV 10.5 Immature Gran % 0.8 Neutrophils % 61.9 Lymphocytes % 26.3 Monocytes % 7.2 Eosinophils % 3.5 Basophils % 0.3 Absolute Neutrophils 5.30 Absolute Lymphocytes 2.26 Absolute Monocytes 0.62 Absolute Eosinophils 0.30 Absolute Basophils 0.03 Sodium 130 L Potassium 4.2 Chloride 96 L Carbon Dioxide 24.8 Anion Gap 9.2 BUN 20 H Creatinine 0.82 Estimated GFR/1.73 m2 >= 60.00 Glucose 208 H Calcium 8.8 Preliminary micro results at discharge 09/30/19 13:50 Blood Culture - Preliminary Blood NO GROWTH 48 HOURS 09/30/19 13:35 Blood Culture - Preliminary Blood NO GROWTH 48 HOURS [facility] Medical History Amputated toe (Chronic) GANGRENOUS 2ND AND 3RD RIGHT TOES 11/14/17 Amputated toe of right foot (Chronic) Arthritis (Chronic) Atrial fibrillation (Chronic) Atrial fibrillation (Chronic 04/13/17) Bilateral lower leg cellulitis (Chronic 05/29/14) a. right worse than left Cataract (Chronic) mild; Fine Drusen in macula-OD S/P SURGERY Cellulitis of leg (Chronic 10/31/14) Depression (Chronic) Depressive disorder (Chronic) Displaced bimalleolar fracture of right ankle (Chronic 05/29/14) DJD of shoulder (Chronic) a. 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 Left ankle 2012 Hearing loss (Chronic) Hearing loss (Chronic) BILATERAL AIDS difficulties w/ the hearing aids History of tobacco use (Chronic) a. 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-disordered breathing (Chronic) Restless legs syndrome (Chronic) Sciatica (Chronic) right; xray from 02/10 showed scattered spondylosis ant L4-5 on the left and mid lumbar scoliosis convex to the right Sensorineural hearing loss, bilateral (Chronic 05/24/17) Sleep apnea with use of continuous positive airway pressure (CPAP) (Chronic) Toe gangrene (Chronic) Transient ischemic attack (Chronic) Type 2 diabetes mellitus with diabetic neuropathy (Chronic 05/13/15) SEEN ENDOCRINE AT [facility] Venous stasis (Chronic) Vitamin D deficiency (Chronic 05/07/15) Surgical History Amputation RIGHT SECOND AND THIRD TOES DUE TO DIABETIC ULCERS WITH CELLULITIS;11/14/17 DR. MAI Colonoscopy - MAC (~2003) Extraction of cataract 04/15/17 DR. ARRIETA; LEFT EYE 04/29/17 DR. ARRIETA; RIGHT EYE PROCEDURES REPAIR OF INTESTINE NEC puncture during colonoscopy ACHILLOTENOTOMY L Achilles tendon repair Family History Mother Neoplasm LUNG Father Heart disease Brother Heart disease Sister No problems noted. Grandfather Heart disease Grandfather Heart disease Grandmother Diabetes Grandmother Diabetes Sister No problems noted. Sister No problems noted. Sister Diabetes Sister No problems noted. Brother No problems noted. Brother No problems noted. Social History Smoking/Tobacco Use Status: Former Tobacco Use Alcohol Intake: never Drug use: Never Substance use type: does not use Current gender identity: female Do you feel safe at home: Yes Do you feel safe in your relationship?: Yes
== END 2019-10-03 10:55 | disposition skilled nursing facility (03) | DRG 193 ==
LOC: ER 15:40 → RMS 16:23 → MS 10-02 11:24
PROVIDERS: Nurse Practitioner Family; Admitting Provider Family Medicine; Emergency Provider Physician Assistant; PCP Family Medicine; Visit Provider Internal Medicine
DX: J18.9 Pneumonia, unspecified organism (principal); E11.10 Type 2 diabetes mellitus with ketoacidosis without coma; N17.9 Acute kidney failure, unspecified; Z03.818 Encounter for observation for suspected exposure to other biological agents ruled out; E11.42 Type 2 diabetes mellitus with diabetic polyneuropathy; Z79.4 Long term (current) use of insulin; I10 Essential (primary) hypertension; E78.5 Hyperlipidemia, unspecified; I48.91 Unspecified atrial fibrillation; Z79.01 Long term (current) use of anticoagulants; H91.93 Unspecified hearing loss, bilateral; Z91.81 History of falling; E03.9 Hypothyroidism, unspecified; Z51.5 Encounter for palliative care; Z71.3 Dietary counseling and surveillance
CPT/HCPCS: 36410; 36415; 71275; 74177; 80048; 80053; 84145; 87040; 87449; 93005; 96361; 96365; 96368; 96375; 96376; 99223; 99233; 99239; 99253; 99285; U0003; 71045; 82247; 83605; 83735; 83880; 84484; 85025; 93010; 94640; 94667; J0696; J3490; J7613

== ENCOUNTER 2019-10-09 09:17 | Outpatient (REF) | payer MEDICARE, BC, SELFPAY ==
[2019-10-09 10:39] LABS: Anion Gap 10.7 mmol/L (3-11); BUN 26 mg/dL (7-18); CO2 27.3 mmol/L (21.0-32.0); CREATININE 0.96 mg/dL (0.55-1.02); Calcium 9.3 mg/dL (8.5-10.1); Chloride 100 mmol/L (98-107); Estimated GFR 57.97 (mL/min/1.73m2); Glucose 50 mg/dL (74-106); Magnesium 2.2 mg/dL (1.8-2.4); Potassium 4.6 mmol/L (3.5-5.1); Sodium 138 mmol/L (136-145)
[2019-10-09 10:43] LABS: Hemoglobin A1C 8.4 % (3.8-5.6)
== END 2019-10-09 09:37 ==
LOC: LBN 09:17
PROVIDERS: PCP Family Medicine; Visit Provider Family Medicine
DX: E11.40 Type 2 diabetes mellitus with diabetic neuropathy, unspecified (principal)
CPT/HCPCS: 80048; 83036; 83735

== ENCOUNTER 2019-12-31 13:39 | Outpatient (REF) | payer MEDICARE, BC, SELFPAY ==
[2019-12-31 14:28] LABS: Hemoglobin A1C 7.1 % (3.8-5.6)
[2019-12-31 14:43] LABS: ALT 35 U/L (14-59); AST 25 U/L (15-37); Albumin 3.8 g/dL (3.4-5.0); Alkaline Phosphatase 92 U/L (46-116); Anion Gap 7.4 mmol/L (3-11); BUN 37 mg/dL (7-18); Bilirubin, Total 0.9 mg/dL (0.2-1.0); CO2 27.6 mmol/L (21.0-32.0); Calcium 9.5 mg/dL (8.5-10.1); Calculated LDL 39 mg/dL (<100); Chloride 102 mmol/L (98-107); Cholesterol 107 mg/dL (<200); Estimated GFR 49.54 (mL/min/1.73m2); Glucose 82 mg/dL (74-106); HDL Cholesterol 47 mg/dL (40-60); Potassium 4.8 mmol/L (3.5-5.1); Sodium 137 mmol/L (136-145); TSH 2.56 uIU/mL (0.36-3.74); Total Protein 7.3 g/dL (6.4-8.2); Triglyceride 109 mg/dL (<150)
[2019-12-31 14:50] LABS: Vitamin D 25 Total 26.2 ng/ml (30-100)
== END 2019-12-31 13:59 ==
LOC: LBN 13:39
PROVIDERS: PCP Family Medicine; Visit Provider Family Medicine
DX: E03.9 Hypothyroidism, unspecified (principal); E11.9 Type 2 diabetes mellitus without complications; I25.10 Atherosclerotic heart disease of native coronary artery without angina pectoris; E66.9 Obesity, unspecified; E55.9 Vitamin D deficiency, unspecified
CPT/HCPCS: 80053; 80061; 82306; 83036; 84443

== ENCOUNTER 2020-01-29 20:25 | Outpatient (REF) | payer MEDICARE, BC, SELFPAY ==
[2020-01-29 18:46] LABS: Abs Immature Grans 0.04 k/cumm (0.0-0.09); Absolute Basophil Count 0.05 k/cumm (0.0-0.2); Absolute Lymphocyte Count 3.61 k/cumm (1.2-3.4); Absolute Monocyte Count 0.92 k/cumm (0.11-0.7); Basophils % 0.5; HCT 46.2 % (36.0-46.0); HGB 15.6 g/dL (12.0-15.5); Immature Grans % 0.4 %; Mean Corp. HGB Concentration 33.8 g/dL (32.0-36.0); Mean Corpuscular Hemoglobin 31.9 pg (27.0-33.0); Mean Corpuscular Volume 94.5 fL (80-95); Mean Platelet Volume 10.9 fL (8.0-11.0); Monocytes % 9.2; Neutrophils % 51.9; Platelet Count 262 x1000/uL (130-400); RBC 4.89 m/cumm (4.00-5.20); RBC Distribution Width 12.7 % (11.7-14.6); White Blood Cell Count 10.02 k/cumm (4.4-10.8)
[2020-01-29 19:35] LABS: Anion Gap 10.3 mmol/L (3-11); BUN 38 mg/dL (7-18); CO2 25.7 mmol/L (21.0-32.0); CREATININE 1.22 mg/dL (0.55-1.02); Calcium 9.5 mg/dL (8.5-10.1); Chloride 100 mmol/L (98-107); Estimated GFR 43.96 (mL/min/1.73m2); Glucose 71 mg/dL (74-106); Magnesium 2.2 mg/dL (1.8-2.4); Potassium 4.8 mmol/L (3.5-5.1); Sodium 136 mmol/L (136-145)
== END 2020-01-29 20:45 ==
LOC: LBN 20:25
PROVIDERS: PCP Family Medicine; Visit Provider Family Medicine
DX: R19.7 Diarrhea, unspecified (principal)
CPT/HCPCS: 80048; 83735; 85025

== ENCOUNTER → 2020-02-26 14:04 | Outpatient (BNVA) | payer MEDICARE, BC, MEDICAID, SELFPAY | PROVIDERS: PCP Family Medicine; Referring Provider Family Medicine; Visit Provider Internal Medicine Cardiovascular Disease | DX: I48.21 Permanent atrial fibrillation (principal); I10 Essential (primary) hypertension; G47.30 Sleep apnea, unspecified; Z79.01 Long term (current) use of anticoagulants; E11.42 Type 2 diabetes mellitus with diabetic polyneuropathy; Z79.4 Long term (current) use of insulin | CPT/HCPCS: 99203; 99214 ==

== ENCOUNTER 2020-05-19 15:18 | Outpatient (REF) | payer MEDICARE, MEDICAID, SELFPAY ==
[2020-05-19 16:12] LABS: Anion Gap 8.9 mmol/L (3-11); BUN 48 mg/dL (7-18); CO2 26.1 mmol/L (21.0-32.0); CREATININE 1.57 mg/dL (0.55-1.02); Calcium 9.3 mg/dL (8.5-10.1); Chloride 99 mmol/L (98-107); Estimated GFR 32.86 (mL/min/1.73m2); Glucose 246 mg/dL (74-106); Sodium 134 mmol/L (136-145)
[2020-05-19 16:13] LABS: Abs Immature Grans 0.06 10^3/uL (0.0-0.06); Absolute Basophil Count 0.09 10^3/uL (0.0-0.2); Absolute Eosinophil Count 0.56 10^3/uL (0.0-0.7); Absolute Lymphocyte Count 2.48 10^3/uL (1.2-3.4); Absolute Monocyte Count 0.79 10^3/uL (0.1-0.8); Absolute Neutrophil Count 5.92 10^3/uL (1.2-6.7); Basophils % 0.9; Eosinophils % 5.7; HCT 45.1 % (36.0-46.0); HGB 14.9 g/dL (11.2-15.7); Immature Grans % 0.6; Lymphocytes % 25.1; MCH 32.4 pg (27.0-33.0); Neutrophils % 59.7; Nucleated RBC 0 %; Platelet Count 235 10^3/uL (130-400); RDW 12.2 % (11.7-14.6); RDW-SD 43.9 fL
[2020-05-19 16:52] LABS: Vitamin D 25 Total 25.7 ng/ml (30-100)
[2020-05-19 17:04] LABS: Hemoglobin A1C 7.5 % (<5.7)
[2020-05-19 17:05] LABS: COMMENT (LAB VIEW ONLY) 37.12 mg/dL; Microalb ug/mg Crea 74.1 ug/mg Cr
== END 2020-05-19 15:38 ==
LOC: LBN 15:18
PROVIDERS: PCP Family Medicine; Visit Provider Family Medicine
DX: E11.65 Type 2 diabetes mellitus with hyperglycemia (principal); I50.32 Chronic diastolic (congestive) heart failure; K58.0 Irritable bowel syndrome with diarrhea; I25.10 Atherosclerotic heart disease of native coronary artery without angina pectoris; I73.89 Other specified peripheral vascular diseases
CPT/HCPCS: 80048; 82306; 82043; 82570; 83036; 85025

== ENCOUNTER 2020-08-22 12:39 | Outpatient (REF) | payer MEDICARE, MEDICAID, SELFPAY ==
[2020-08-22 14:11] LABS: Ferritin 323 ng/mL (8-252)
== END 2020-08-22 12:40 | disposition home or self-care (01) ==
LOC: LBN 12:39
PROVIDERS: Nurse Practitioner; PCP Family Medicine; Visit Provider Family Medicine
DX: M25.551 Pain in right hip (principal)
CPT/HCPCS: 82728

== ENCOUNTER 2020-08-26 15:22 | Outpatient (REF) | payer MEDICARE, MEDICAID, SELFPAY ==
[2020-08-26 15:56] LABS: Abs Immature Grans 0.04 10^3/uL (0.0-0.06); Absolute Basophil Count 0.09 10^3/uL (0.0-0.2); Absolute Eosinophil Count 0.61 10^3/uL (0.0-0.7); Absolute Lymphocyte Count 2.28 10^3/uL (1.2-3.4); Absolute Monocyte Count 0.79 10^3/uL (0.1-0.8); Absolute Neutrophil Count 5.02 10^3/uL (1.2-6.7); Eosinophils % 6.9; HCT 42.9 % (36.0-46.0); HGB 14.5 g/dL (11.2-15.7); Immature Grans % 0.5; Lymphocytes % 25.8; MCH 32.8 pg (27.0-33.0); MCHC 33.8 % (32.0-36.0); MCV 97.1 fL (80-95); MPV 11.1 fL (8.0-11.0); Monocytes % 8.9; Neutrophils % 56.9; Nucleated RBC 0 %; Platelet Count 225 10^3/uL (130-400); RBC 4.42 10^6/uL (3.93-5.22); RDW 12.2 % (11.7-14.6); RDW-SD 43.8 fL; WBC 8.83 10^3/uL (4.4-10.8)
[2020-08-26 16:39] LABS: BUN 53 mg/dL (7-18); CREATININE 1.5 mg/dL (0.55-1.02); Calcium 9.6 mg/dL (8.5-10.1); Chloride 97 mmol/L (98-107); Estimated GFR 34.64 (mL/min/1.73m2); Glucose 222 mg/dL (74-106); Sodium 132 mmol/L (136-145)
== END 2020-08-26 15:23 | disposition home or self-care (01) ==
LOC: LBN 15:22
PROVIDERS: PCP Family Medicine; Visit Provider Family Medicine
DX: E11.65 Type 2 diabetes mellitus with hyperglycemia (principal); I27.21 Secondary pulmonary arterial hypertension; I25.10 Atherosclerotic heart disease of native coronary artery without angina pectoris; R53.1 Weakness; M54.5 Low back pain; I50.32 Chronic diastolic (congestive) heart failure
CPT/HCPCS: 80048; 85025

== ENCOUNTER 2020-08-26 19:30 | Emergency (ER) | payer MEDICARE, BC, MEDICAID, SELFPAY ==
--- NOTE | 2020-08-26 19:30 | RT.EKG_ITS ---
APPROVED REPORT Exam: Resting ECG Patient Location: E HR:70 bpm ECG Measurements Heart Rate 70 AXIS MT [id number] P [id number] QRSd 84 QRS 31 QT 447 T 106 QTc 489 Conclusion afib...A-rate 254 Low voltage, precordial leads...precordial leads <1.0mV Nonspecific T abnormalities, lateral leads...T <-0.10mV, I aVL V5 V6
[2020-08-26 19:47] VITALS: BP 114/57; PULSE 68; RESP 18; TEMP 36.5; O2SAT 99
[2020-08-26 19:48] VITALS: RESP 18
--- NOTE | 2020-08-26 19:51 | NUR.NOTE ---
Nursing Note: Pt arrives to ED from [facility]. Reports I've been feeling fine, I dont hurt anywhere. Denies CP,SOB, N/V/D. Reports They told me my labs were off.I 've never been told my potassium was off before.
[2020-08-26] MEDS: Normal Saline 1,000 ML 1000 ML IV (20:04)
[2020-08-26 20:07] LABS: Abs Immature Grans 0.03 10^3/uL (0.0-0.06); Absolute Basophil Count 0.08 10^3/uL (0.0-0.2); Absolute Eosinophil Count 0.59 10^3/uL (0.0-0.7); Absolute Lymphocyte Count 2.67 10^3/uL (1.2-3.4); Absolute Monocyte Count 0.81 10^3/uL (0.1-0.8); Basophils % 0.9; Eosinophils % 6.6; HCT 44.1 % (36.0-46.0); HGB 14.8 g/dL (11.2-15.7); Immature Grans % 0.3; Lymphocytes % 30.1; MCH 32.8 pg (27.0-33.0); MCHC 33.6 % (32.0-36.0); MCV 97.8 fL (80-95); MPV 11.3 fL (8.0-11.0); Monocytes % 9.1; Nucleated RBC 0 %; Platelet Count 206 10^3/uL (130-400); RBC 4.51 10^6/uL (3.93-5.22); RDW 12.2 % (11.7-14.6); WBC 8.88 10^3/uL (4.4-10.8)
[2020-08-26 20:16] LABS: ALT 43 U/L (14-59); AST 28 U/L (15-37); Alkaline Phosphatase 117 U/L (46-116); Anion Gap 4.8 mmol/L (3-11); BUN 56 mg/dL (7-18); Bilirubin, Total 0.8 mg/dL (0.2-1.0); CO2 25.2 mmol/L (21.0-32.0); CREATININE 1.6 mg/dL (0.55-1.02); Calcium 9.3 mg/dL (8.5-10.1); Chloride 95 mmol/L (98-107); Estimated GFR 32.15 (mL/min/1.73m2); Glucose 336 mg/dL (74-106); Potassium 5.4 mmol/L (3.5-5.1); Sodium 125 mmol/L (136-145); Total Protein 8.7 g/dL (6.4-8.2)
[2020-08-26 20:36] VITALS: BP 98/68; PULSE 86; RESP 15; O2SAT 98
--- NOTE | 2020-08-26 20:49 | W.ED.GENAD ---
Discharge Plan Disposition Patient Disposition: SNF (LEVEL 1) [facility] Condition: Stable Discharge Details Clinical Impression: Hyperkalemia, Hyponatremia Primary Care Provider: Jenna Rodriguez ED Provider: Mikey Lyons [facility] Meds and New Rx's Prescriptions: New Lokelma 10 gram powder in packet 10 g PO TID 2 Days Qty: 5 RF: 0 Continued (DME) blood-glucose meter misc See Dose Instructions .ROUTE .MEDSUPPLY Qty: 1 RF: 0 (DME) lancets 28 gauge misc 1 ea Miscellaneous TID & PRN Qty: 400 RF: 12 (DME) Blood Glucose Test strip See Dose Instructions .ROUTE .MEDSUPPLY Qty: 400 RF: 5 furosemide 80 mg tablet 80 mg PO DAILY Qty: 90 RF: 5 triamcinolone acetonide 80 GM ointment 2 - 4 gm Topical BID PRNQty: 80 RF: 2 nystatin 60 GM powder 0 Topical BID Qty: 60 RF: 12 (DME) insulin syringe needleless [BD Insulin Syringe Slip Tip] 1 mL syringe 1 ea Miscellaneous BID Qty: 120 RF: 12 (DME) pen needle, diabetic [Pen Needle] 30 gauge x 5/16 needle 1 ea Miscellaneous QID Qty: 300 RF: 6 atorvastatin 40 mg tablet 40 mg PO DAILY Qty: 90 RF: 12 levothyroxine 50 mcg tablet 50 mcg PO DAILY Qty: 90 RF: 12 ropinirole 1 mg tablet 3 mg PO HS Qty: 150 RF: 12 metformin [Glucophage XR] 750 mg tablet extended release 24 hr 750 mg PO DAILY Qty: 90 RF: 4 Eliquis 5 mg tablet 5 mg PO BID Qty: 180 RF: 12 nystatin 100,000 unit/gram powder 1 applic topical TID Qty: 60 RF: 5 zinc oxide 20 % Ointment 60 g topical TID Qty: 0 RF: 0 clotrimazole 1 % Cream 60 g topical TID Qty: 0 RF: 0 vits A and D-white pet-lanolin Ointment 1 applic topical TID Qty: 0 RF: 0 magnesium oxide 400 MG tablet 800 mg PO BID Qty: 0 RF: 0 tramadol 50 mg Tablet 50 - 100 mg PO Q4H PRN PRN (Reason: pain) Qty: 60 RF: 0 metoprolol tartrate 50 mg Tablet 25 mg PO Q12H Qty: 60 RF: 0 cholecalciferol (vitamin D3) [Vitamin D3] 10 mcg (400 unit) Tablet 800 unit PO DAILY RF: 0 guaifenesin [Mucinex] 600 mg Tablet Extended Release 12hr 600 mg PO .Q12 HOURS RF: 0 albuterol sulfate 2.5 mg/0.5 mL Solution For Nebulization .Q6 HOURS X1 WEEK RF: 0 doxycycline hyclate 100 mg capsule 100 mg PO BID Qty: 7 RF: 0 cefpodoxime 200 mg tablet 200 mg PO BID Qty: 7 RF: 0 ropinirole 2 mg Tablet 2 mg PO DAILY RF: 0 loratadine 10 mg Tablet 5 mg PO HS RF: 0 calcium carbonate-vitamin D3 [Calcium 600 + D(3)] 600 mg(1,500mg) -400 unit Tablet 1 tab PO BID RF: 0 Combivent Respimat 20-100 mcg/actuation Mist 1 puff INHALATION Q6H RF: 0 fluoxetine [Prozac] 40 MG capsule 30 mg PO QAM RF: 0 acetaminophen [Tylenol] 325 MG tablet 650 mg PO BID RF: 0 spironolactone 25 mg tablet 25 mg PO BID RF: 0 Humulin R Regular U-100 Insuln 100 unit/mL solution 10 unit Sub-Q AC MDD 75 RF: 0 Humulin N NPH Insulin KwikPen 100 unit/mL (3 mL) insulin pen 30 unit Sub-Q BID@0800,2000 RF: 0 No Action losartan [Cozaar] 100 mg tablet 100 mg PO QAM Qty: 90 RF: 4 Discharge Instructions Instructions: Hyponatremia (ED), Hyperkalemia (ED) Additional Instructions: Please take Lokelma as prescribed. Please have your potassium rechecked. Follow-up with your treating provider tomorrow. Be sure to discuss your medications and diet. If your potassium decreases into normal level you can discontinue remaining Lokelma dosing. Return to the ER for any worsening or new concerning symptoms. Referrals: Jenna Rodriguez MD, [place] [Primary Care Provider] - Medical Decision Making 69-year-old female with multiple medical problems, sent from long-term care facility with concern for critically elevated potassium. Potassium apparently was 6.0 earlier today. Patient is asymptomatic with no complaints. Screening ECG was performed and reviewed and interpreted by me: Please see report, no peaked T's. Labs rechecked. Potassium remains elevated although improved at 5.4. Patient given IV fluid bolus and a single dose of Lokelma 10 g. Plan will be to discharge back to nursing facility with plan for them to monitor potassium and adjust medication/diet as appropriate. Disposition decision was made weighing the risks and benefits of hospitalization versus outpatient treatment, the risk for further decompensation, and the patient's wishes. The patient was stable and requested discharge. Prior to discharge, my usual and customary return precautions were reviewed with the patient - this included follow-up instructions and reason to return to the emergency department if condition worsens, does not improve as expected, or other new concerns arise. HPI General Mode of arrival: ambulatory. Date/Time Provider Initiated Documentation: 08/26/20 19:40. Limitations to Documentation: no limitations. Information obtained by: patient. HPI Narrative: 69-year-old female with multiple medical problems presents from longterm with concern for elevated potassium. Per longterm patient had labs checked today potassium was 6.0. Sent to the ED for IV fluids and evaluation. Patient has no complaints. She denies pain. No palpitations. No shortness of breath. No weakness. Patient denies recent medication changes. Related Data Home Medications Medication Instructions Recorded Confirmed nystatin 0 TOPICAL BID #60 gm 06/27/17 02/26/20 triamcinolone acetonide 2 - 4 gm TOPICAL BID PRN #80 gm 06/27/17 02/26/20 insulin syringe needleless 1 mL #120 syringe 04/10/18 02/26/20 pen needle, diabetic 30 gauge x #300 ndl 04/10/18 02/26/2011/23 furosemide 80 mg tablet 80 mg PO DAILY #90 tab-cap 05/22/18 08/26/20 blood-glucose meter #1 each 11/14/18 02/26/20 blood sugar diagnostic #400 each 11/29/18 02/26/20 lancets 28 gauge #400 ea 11/29/18 02/26/20 clotrimazole 60 g TOPICAL TID #0 g 01/16/19 02/26/20 magnesium oxide 800 mg PO BID #0 tab 01/16/19 08/26/20 vits A and D-white pet-lanolin 1 applic TOPICAL TID #0 gm 01/16/19 02/26/20 zinc oxide 60 g TOPICAL TID #0 g 01/16/19 02/26/20 atorvastatin 40 mg tablet 40 mg PO DAILY #90 tab-cap 02/20/19 08/26/20 levothyroxine 50 mcg tablet 50 mcg PO DAILY #90 tab-cap 02/20/19 08/26/20 losartan 100 mg tablet 100 mg PO QAM #90 tab-cap 02/20/19 08/26/20 apixaban 5 mg tablet 5 mg PO BID #180 tab-cap 05/01/19 08/26/20 metformin 750 mg tablet,extended 750 mg PO DAILY #90 tab 05/01/19 08/26/20 release 24 hr ropinirole 1 mg tablet 3 mg PO HS #150 tab 05/01/19 08/26/20 nystatin 100,000 unit/gram topical 1 applic TOPICAL TID #60 gm 07/24/19 08/26/20 powder metoprolol tartrate 25 mg PO Q12H #60 tab 08/07/19 08/26/20 tramadol 50 - 100 mg PO Q4H PRN PRN #60 tab 08/07/19 02/26/20 albuterol sulfate .Q6 HOURS X1 WEEK 09/30/19 02/26/20 cholecalciferol (vitamin D3) 800 unit PO DAILY 09/30/19 02/26/20 [Vitamin D3] guaifenesin [Mucinex] 600 mg PO .Q12 HOURS 09/30/19 02/26/20 cefpodoxime 200 mg PO BID #7 tab 10/03/19 02/26/20 doxycycline hyclate 100 mg PO BID #7 cap 10/03/19 02/26/20 Combivent Respimat 1 puff INHALATION Q6H 08/26/20 08/26/20 Humulin N NPH Insulin KwikPen 30 unit SUB-Q BID@0800,2000 08/26/20 08/26/20 Humulin R Regular U-100 Insuln 10 unit SUB-Q AC MDD 75 08/26/20 08/26/20 acetaminophen [Tylenol] 650 mg PO BID 08/26/20 08/26/20 calcium carbonate-vitamin D3 1 tab PO BID 08/26/20 08/26/20 [Calcium 600 + D(3)] fluoxetine [Prozac] 30 mg PO QAM 08/26/20 08/26/20 loratadine 5 mg PO HS 08/26/20 08/26/20 ropinirole 2 mg PO DAILY 08/26/20 08/26/20 sodium zirconium cyclosilicate 10 g PO TID 2 Days #5 ea 08/26/20 [[facility]] spironolactone 25 mg PO BID 08/26/20 08/26/20 Previous Rx's Medication Instructions Recorded insulin syringe needleless 1 mL #120 syringe 04/10/18 pen needle, diabetic 30 gauge x #300 ndl 04/10/1811/23 furosemide 80 mg tablet 80 mg PO DAILY #90 tab-cap 05/22/18 blood-glucose meter #1 each 11/14/18 blood sugar diagnostic #400 each 11/29/18 lancets 28 gauge #400 ea 11/29/18 clotrimazole 60 g TOPICAL TID #0 g 01/16/19 magnesium oxide 800 mg PO BID #0 tab 01/16/19 vits A and D-white pet-lanolin 1 applic TOPICAL TID #0 gm 01/16/19 zinc oxide 60 g TOPICAL TID #0 g 01/16/19 atorvastatin 40 mg tablet 40 mg PO DAILY #90 tab-cap 02/20/19 levothyroxine 50 mcg tablet 50 mcg PO DAILY #90 tab-cap 02/20/19 losartan 100 mg tablet 100 mg PO QAM #90 tab-cap 02/20/19 apixaban 5 mg tablet 5 mg PO BID #180 tab-cap 05/01/19 metformin 750 mg tablet,extended 750 mg PO DAILY #90 tab 05/01/19 release 24 hr ropinirole 1 mg tablet 3 mg PO HS #150 tab 05/01/19 nystatin 100,000 unit/gram topical 1 applic TOPICAL TID #60 gm 07/24/19 powder metoprolol tartrate 25 mg PO Q12H #60 tab 08/07/19 tramadol 50 - 100 mg PO Q4H PRN PRN #60 tab 08/07/19 cefpodoxime 200 mg PO BID #7 tab 10/03/19 doxycycline hyclate 100 mg PO BID #7 cap 10/03/19 sodium zirconium cyclosilicate 10 g PO TID 2 Days #5 ea 08/26/20 [Namratakel[facility]] Allergies Allergy/AdvReac Type Severity Reaction Status Date / Time No Known Allergies Allergy Verified 02/26/20 14:14 General Stated Complaint: GenMedical JOLEEN: 3 Review of Systems All systems reviewed & are unremarkable except as noted in HPI and below Constitutional Constitutional: Denies fever(s) Cardiovascular Cardiovascular: Denies dyspnea Respiratory Respiratory: Denies dyspnea [facility] Medical History Amputated toe GANGRENOUS 2ND AND 3RD RIGHT TOES 11/14/17 Amputated toe of right foot Arthritis Atrial fibrillation Atrial fibrillation (04/13/17) Bilateral lower leg cellulitis (05/29/14) a. right worse than left Cataract mild; Fine Drusen in macula-OD S/P SURGERY Cellulitis of leg (10/31/14) Depression Depressive disorder Displaced bimalleolar fracture of right ankle (05/29/14) DJD of shoulder a. 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 Left ankle 2012 Hearing loss Hearing loss BILATERAL AIDS difficulties w/ the hearing aids History of tobacco use a. 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 DJD; Left knee-mild DJD; Left-severe DJD; Right-hip mild DJD Otosclerosis (10/14/14) Polycythemia (03/08/17) Pulmonary hypertension (04/13/17) Pulmonary hypertension due to sleep-disordered breathing Restless legs syndrome Sciatica right; xray from 02/10 showed scattered spondylosis ant L4-5 on the left and mid lumbar scoliosis convex to the right Sensorineural hearing loss, bilateral (05/24/17) Sleep apnea with use of continuous positive airway pressure (CPAP) Toe gangrene Transient ischemic attack Type 2 diabetes mellitus with diabetic neuropathy (05/13/15) SEEN ENDOCRINE AT [facility] – [place] Venous stasis Vitamin D deficiency (05/07/15) Surgical History Amputation RIGHT SECOND AND THIRD TOES DUE TO DIABETIC ULCERS WITH CELLULITIS;11/14/17 DR. MAI Colonoscopy - MAC (~2003) Extraction of cataract 04/15/17 DR. ARRIETA; LEFT EYE 04/29/17 DR. ARRIETA; RIGHT EYE PROCEDURES REPAIR OF INTESTINE NEC puncture during colonoscopy ACHILLOTENOTOMY L Achilles tendon repair Family History Mother Neoplasm LUNG Father Heart disease Brother Heart disease Sister No problems noted. Grandfather Heart disease Grandfather Heart disease Grandmother Diabetes Grandmother Diabetes Sister No problems noted. Sister No problems noted. Sister Diabetes Sister No problems noted. Brother No problems noted. Brother No problems noted. Social History Smoking/Tobacco Use Status: Former Tobacco Use Smoking risk assessment performed?: Yes Alcohol Intake: never Drug use: Never Substance use type: does not use Current gender identity: female Do you feel safe at home: Yes Do you feel safe in your relationship?: Yes Exam Const General: cooperative and no acute distress HENMT Mouth: moist mucous membranes Eyes Sclera: normal sclerae Neck Neck: trachea midline and supple Resp Auscultation: clear to auscultation bilaterally, no rales, no rhonchi and no wheezes Cardio Rate: regular rate and not tachycardic Rhythm: regular rhythm GI Palpation: soft, not firm, no guarding, no masses, not rigid and nontender Skin General skin exam: no rashes or lesions noted Neuro General: patient alert, patient awake and tone normal Extrem General: no edema Course Vital Signs Vital signs: Vital Signs Temperature 36.5 C 08/26/20 19:47 Pulse 68 08/26/20 19:47 Respiratory Rate 18 08/26/20 19:47 Blood Pressure 114/57 L 08/26/20 19:47 Pulse Oximetry 99 08/26/20 19:47 Temperature 36.5 C 08/26/20 19:47 Temperature Source Temporal Artery Scan 08/26/20 19:47 Pulse 86 08/26/20 20:36 Respiratory Rate 15 08/26/20 20:36 Respiratory Effort Non-Labored 08/26/20 19:49 Respiratory Depth Normal 08/26/20 19:49 Respiratory Pattern Normal 08/26/20 19:49 Blood Pressure 98/68 L 08/26/20 20:36 Pulse Oximetry 98 08/26/20 20:36 Oxygen Delivery Method Room Air 08/26/20 20:36 Oxygen Flow Rate 0 08/26/20 20:36 Pain Level 0 08/26/20 19:47 Lab/Test Results Lab/Test Results: Laboratory Tests Range/Units 08/26/20 08/26/20 19:47 19:47 WBC (4.4-10.8) 10^3/uL 8.88 RBC (3.93-5.22) 10^6/uL 4.51 Hgb (11.2-15.7) g/dL 14.8 Hct (36.0-46.0) % 44.1 MCV (80-95) fL 97.8 H MCH (27.0-33.0) pg 32.8 MCHC (32.0-36.0) % 33.6 RDW (11.7-14.6) % 12.2 Plt Count (130-400) 10^3/uL 206 MPV (8.0-11.0) fL 11.3 H Immature Gran % 0.3 Neutrophils % 53.0 Lymphocytes % 30.1 Monocytes % 9.1 Eosinophils % 6.6 Basophils % 0.9 Nucleated RBC % % 0 Absolute Neutrophils (1.2-6.7) 10^3/uL 4.70 Absolute Lymphocytes (1.2-3.4) 10^3/uL 2.67 Absolute Monocytes (0.1-0.8) 10^3/uL 0.81 H Absolute Eosinophils (0.0-0.7) 10^3/uL 0.59 Absolute Basophils (0.0-0.2) 10^3/uL 0.08 Sodium (136-145) mmol/L 125 L Potassium (3.5-5.1) mmol/L 5.4 H Chloride (98-107) mmol/L 95 L Carbon Dioxide (21.0-32.0) mmol/L 25.2 Anion Gap (3-11) mmol/L 4.8 BUN (7-18) mg/dL 56 H Creatinine (0.55-1.02) mg/dL 1.6 H Estimated GFR/1.73 m2 (mL/min/1.73m2) 32.15 Glucose (74-106) mg/dL 336 H D Calcium (8.5-10.1) mg/dL 9.3 Magnesium (1.8-2.4) mg/dL 2.0 Total Bilirubin (0.2-1.0) mg/dL 0.8 AST (15-37) U/L 28 ALT (14-59) U/L 43 Alkaline Phosphatase (46-116) U/L 117 H Total Protein (6.4-8.2) g/dL 8.7 H Albumin (3.4-5.0) g/dL 4.0
[2020-08-26] MEDS: Sodium Zirconium Cyclosilicate 10 GM PKT PO (21:29)
== END 2020-08-26 23:06 | disposition skilled nursing facility (03) ==
PROVIDERS: Emergency Provider Student in an Organized Health Care Education/Training Program; PCP Family Medicine
DX: E87.6 Hypokalemia (principal); E87.1 Hypo-osmolality and hyponatremia; E11.42 Type 2 diabetes mellitus with diabetic polyneuropathy; I10 Essential (primary) hypertension
CPT/HCPCS: 36415; 80053; 93005; 96360; 99284; 83735; 85025; 93010

== ENCOUNTER 2020-08-27 12:42 | Outpatient (REF) | payer MEDICARE, MEDICAID, SELFPAY ==
--- OUTSIDE RECORDS SUMMARY | 2020-08-27 12:49 | XMS_ITS | Encounter Summary ---
:1950 Author Reason for Visit None recorded. Assessment and Plan 1. Obstructive sleep apnea syndr ome KELLEY diagnosed in 2011 with an AHI of 13.1/hr. She has been treated with CPAP 9-11 cm in the past but has now been untreated for several years. She has daytime sleepiness, snoring, nocturia and sleep fragmentation She has poorly cont rolled HTN and DM which may be caused or worsened by untreated KELLEY. She is willing to start CPAP again so I have ordered CPAP 9-13 cm. She is aware she may be req uired to have a repeat PSG to qualify fo r CPAP again. If so I will order the PSG as a 1:1 as she needs assistance to get up to the bathroom at night (and no one from the [facility] is allowed to stay overnig ht with her). I will see her back after at least 31 days of CPAP use. She is aware she will need to meet insurance compliance requirements again. She agrees with the plan. She does not drive. I provided greater than 40 minutes in e care of this patient, more than half the time was spent in [id number] counseling. ? CPAP machine 2. Restless legs With very severe PLMS noted du ring PSG. She has been taking ropinirole and says this helps a lot to settle her legs down. She take her second dose at 7 pm. She has some symptoms in the morning when si tting in her chair. They jump away. 3. Pain in right hip joint ? ferritin, serum or plasma Discussion Note: None recorded.Patient educational handouts: No information available. 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 ? recorded. Procedures None ? ? recorded. Surgeries None ? ? recorded. Imaging None ? ? recorded. Medications Name Start Date ? ? atorvastatin 10 mg tablet ? atorvastatin 40 mg tablet ? calcium carbonate 600 mg (1,500 mg)-vitamin D3 400 uni t tablet ? diphenhydramine 25 mg tablet ? Eliquis 5 mg tablet ? fluoxetine 10 mg capsule ? fluoxetine 20 mg capsule ? fluoxetine 40 mg capsule ? furosemide 20 mg tablet ? furosemide 80 mg tablet ? Humulin N NPH U-100 Insulin KwikPen 100 unit/mL (3 mL) subcutaneous ? Humulin R Regular U-100 Insulin 100 unit/mL injection solution ? levothyroxine 50 mcg tablet ? loperamide 2 mg capsule ? loratadine 10 mg tablet ? losartan 100 mg tablet ? magnesium oxide 400 mg (241.3 mg magnesium) tablet ? metformin ER 750 mg tablet,extended release 24 hr ? metoprolol tartrate 25 mg tablet ? Novolin N NPH U-100 Insulin isophane 100 unit/mL subcu taneous susp ? nystatin 100,000 unit/gram topical cream ? nystatin 100,000 unit/gram topical powder ? ropinirole 1 mg tablet ? ropinirole 2 mg tablet ? ropinirole 3 mg tablet ? spironolactone 25 mg tablet ? tramadol 50 mg tablet ? Medications Administered None recorded. Vitals Height Weight BMI Blood Pressure 5 ft 218 lbs 42.6 kg/m2 138/101 mm[Hg] Results Lab Results None recorded. Allergies None recorded. Problems Name Status Onset Date Source ? Type 2 Diabetes Mellitus without Complication Active ? History Obstructive Sleep Apnea Syndrome Active ? History Restless Legs Active ? History Essential Hypertension Active ? History Procedures Date Name Performed by ? ? Arthroplasty Information not avai lable Notes: Hip 12/16 Vaccine List None recorded. Social History None recorded. Functional Status Unknown. 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 History of Present Illness Note: <p>Madison Hoyos has a visit for KELLEY follow-up. She is a resident at [facility] and came to the appointment via RCT and was about 15 minutes late checking in. A staff member from the [facility] accompanied her for the visit.</p><p>
</p><p>Madison has a medical hist ory to include HTN, DM and KELLEY. PSG 10/18/11 (BMI 44), AHI 13.1/hr, REM AHI 41.5/hr, sp02 kimber 85%, PLMi 167.9/hr, PLMai 5.6/hr. Titration 11/24/11 (BMI 43.5), CPAP 9 cm was effective in supine REM sleep, PLMi 23.6/hr, PLMai 3.5/hr. She was last seen in the sleep clinic 03/20/[address] [place]. She was using CPAP 9-11 cm. There was no compliance available but her use was down after being in rehab for an ankle injury. She was taking ropinirole 2 mg mg BID.</p><p>
</p><p>Madison says she has not been using CPAP for years and the reason she stopped was because she slept a lot in the living room instead of her bedroom where the CPAP was. She says the mask was a problem in the past because it did not fit. She says she never got to the point that she used it all night long. &l t;/p><p>
</p><p>{{Madison# Patient}} feels {{his her*}} biggest problem with sleep is {{not sleeping long enough# snoring waking up a lot not feeling rested}}. {{He She*}} typically goes to bed at {{8:30# 9}}pm. It takes {{30-60# 5}} minutes to fall asleep. {{He * She}} wakes up {{1 2 * 3}} times a night to use the {{unknown reason pain bathroom*}} and it takes {{up to # }} hours to get back to sleep. {{He She *}} gets up at {{4# 5 6 7 8}}am to start {{his her*}} day. {{He She*}} does take naps many days for 5-10 minutes. {{He She*}} has disturbances to {{his her*}} sleep to include having {{ noise and lights# TV lights noise child juan pets}} in the bedroom at night. {{He She*}} sleeps {{alone * with someone}} in a bed.

SLEEP QUALITY: Feels quality of sleep most nights is {{good okay poor*}}.

DAYTIME ALERTNESS: Reports level of alertness most days to be {{alert low energy * sleepy very sleepy}}.

PSYCH SYMPTOMS: {{Has Has not*}} noted worsening memory {{and or*}} concentration. {{Does have Denies current problems with *}} irritability, depression, {{and or*}} anxiety. {{Has Has not*}} noted difficulty with calculations.

INSOMNIA SYMPTOMS: {{Does have * Does not have}} an active mind at night when trying to sleep. {{Does have * Does not have}} stressful thoughts interfering with sleep. {{Does Does not*}} watch the clock throughout the night. {{Does Does not*}} worry about getting a good night's sleep.

BREATHING SYMPTOMS: {{Does have Does not have*}} snoring. {{Does have Does not have*}} witnessed apnea. {{Does have Does not have*}} nocturnal choking/gasping/dyspnea.{{Does have Does not have*}} mouth breathing. {{Does have Does not have*}} nasal congestion at night.<br&g t;

MOVEMENT SYMPTOMS: {{Does have Does not have*}} tossing & turning. {{Does have * Does not have}} messy sheets in the morning. {{Does have * Does not have}} leg or arm jerks, kicks or twitches in sleep or prior to falling asleep. {{Does * Does not}} have an aching, restless or crawling feeling in legs at night. {{Does * Does not}} have a hard time keeping legs stillwhen trying to sleep. {{Does Does not*}} have muscle cramps or Kirk horses. {{Does Does not*}} have sleep walking or talking.

DREAM SYMPTOMS: {{Does have Does not have*}} nightmares often that affect ability to sleep. {{Does have Does not have*}} dreams of suffocating/drowning. {{Does Does not*}} dream shortly after falling asleep. {{Does Does not*}} see dreams in the room even when awake.{{Does Does not*}} see or hear things in the room when falling asleep that aren't really there. {{Does Does not*}} see things in the road when driving that aren't really there. {{Has Has not*}} had someone see then act our their dreams. {{Has Has not*}} accidentally injured themselves while sleeping due to own movements/behaviors.

CATAPLEXYSYMPTOMS: {{Does have Does not have*}} feel limp, lose strength, or fall asleep when very angry, surprised or laughing. {{Does have Does not have*}} leg, arm or face weakness when upset. {{Has Has not*}} had episodes of being unable to move when waking up which is often frightening.

DRIVING: {{Has Has not*}} fallen asleep or nearly fallen asleep driving. {{Has had Has nothad*}} an accident related to drowsy driving or not paying attention. {{Does Does not*}} forget the last few miles or minutes while driving. {{Has Has not*}} driven out of ty and crossed center line or gone onto shoulder when driving. {{Has Has not*}} had a passenger tell them they look sleepywhen driving.

ESS today

</p>Review of Systems: ROS as noted in the HPI Review of Systems ? Notes: <p>nocturia 2/night. </p><p> Denies morning headaches, nocturnal heartburn or night sweats. </p> Physical Exam ? Notes: <p>General: A&O, well groome d {{over weight obese * morbidly obese normal weight thin}}.
HEAD: no rmocephalic & atraumatic.
EYES: non icteric.
LUNGS: CTA all f ields. Good air movement.
CARDIO: RRR without murmur, gallop or thrill.
NEURO: A&O. Wheelchair bound.
PSYCH: Normal mood and affect.
CUTANEOU S: no overt lesions or rashes</p>
--- OUTSIDE RECORDS SUMMARY | 2020-08-27 12:49 | XMS_ITS ---
:1950 Author Care Team Providers Name Role Phone Lisa Case Primary Care Provider Unavailable Allergies None recorded. Medications Name Status Start Date Stop Date ? ? atorvastatin 10 mg tablet Active ? Not av ailable atorvastatin 40 mg tablet Active ? Not av ailable calcium carbonate 600 mg (1,500 Active ? Not available mg)-vitamin D3 400 unit tablet diphenhydramine 25 mg tablet Active ? Not available Eliquis 5 mg tablet Active ? Not availabl e fluoxetine 10 mg capsule Active ? Not roxy ilable fluoxetine 20 mg capsule Active ? Not roxy ilable fluoxetine 40 mg capsule Active ? Not roxy ilable furosemide 20 mg tablet Active ? Not avai lable furosemide 80 mg tablet Active ? Not avai lable Humulin N NPH U-100 Insulin Active ? Not available KwikPen 100 unit/mL (3 mL) subcutaneous Humulin R Regular U-100 Insulin Active ? Not available 100 unit/mL injection solution levothyroxine 50 mcg tablet Active ? Not available loperamide 2 mg capsule Active ? Not avai lable loratadine 10 mg tablet Active ? Not avai lable losartan 100 mg tablet Active ? Not avail able magnesium chloride (bulk) crystals Completed 06/25/2012 03/20/2013 1 Powder: qd - daily magnesium oxide 400 mg (241.3 mg Active ? Not available magnesium) tablet metformin ER 750 mg Active ? Not availabl e tablet,extended release 24 hr metoprolol tartrate 25 mg tablet Active ? Not available Novolin N NPH U-100 Insulin Active ? Not available isophane 100 unit/mL subcutaneous susp nystatin 100,000 unit/gram Active ? Not a vailable topical cream nystatin 100,000 unit/gram Active ? Not a vailable topical powder ropinirole 1 mg tablet Active ? Not avail able ropinirole 2 mg tablet Active ? Not avail able ropinirole 3 mg tablet Active ? Not avail able spironolactone 25 mg tablet Active ? Not available tramadol 50 mg tablet Active ? Not availa ble Problems Name Status Onset Date Source ? Type 2 Diabetes Mellitus without Complication Active ? History Obstructive Sleep Apnea Syndrome Active ? History Restless Legs Active ? History Essential Hypertension Active ? History Procedures Date Name Performed by ? ? Arthroplasty Information not avai labgiovani Notes: Hip 12/16 Results Lab Results None recorded. 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 Social History None recorded. Vaccine List None recorded. Plan of Care Reminders Provider Appointments None ? ? recorded. Lab None ? ? recorded. Referral None ? ? recorded. Procedures None ? ? recorded. Surgeries None ? ? recorded. Imaging None ? ? recorded. Vitals 08/21/2020 10:30AM Office 30 Height Weight BMI Blood Pressure 152.4 cm 98.88 kg 42.6 kg/m2 138/101 mm[Hg] 03/12/2015 Height Weight Blood Pressure 154.94 cm 108.55 kg 136/76 mm[Hg] 05/01/2014 Height Weight Blood Pressure 154.94 cm 107.53 kg 136/82 mm[Hg] 03/20/2014 Height Weight Blood Pressure 154.94 cm 110.9 kg 118/62 mm[Hg] 03/20/2013 Weight Blood Pressure 117.99 kg 138/78 mm[Hg]
[2020-08-27 13:00] LABS: Anion Gap 12.5 mmol/L (3-11); BUN 46 mg/dL (7-18); CO2 21.5 mmol/L (21.0-32.0); CREATININE 1.5 mg/dL (0.55-1.02); Chloride 98 mmol/L (98-107); Estimated GFR 34.64 (mL/min/1.73m2); Glucose 375 mg/dL (74-106); Sodium 132 mmol/L (136-145)
[2020-08-27 18:53] LABS: Anion Gap 9.1 mmol/L (3-11); BUN 51 mg/dL (7-18); CO2 23.9 mmol/L (21.0-32.0); CREATININE 1.7 mg/dL (0.55-1.02); Calcium 8.9 mg/dL (8.5-10.1); Chloride 101 mmol/L (98-107); Estimated GFR 29.98 (mL/min/1.73m2); Glucose 195 mg/dL (74-106); Potassium 4.8 mmol/L (3.5-5.1); Sodium 134 mmol/L (136-145)
== END 2020-08-27 12:43 | disposition home or self-care (01) ==
LOC: LBN 12:42
PROVIDERS: PCP Family Medicine; Visit Provider Family Medicine
DX: E87.8 Other disorders of electrolyte and fluid balance, not elsewhere classified (principal)
CPT/HCPCS: 80048

== ENCOUNTER 2020-08-28 10:32 | Outpatient (REF) | payer MEDICARE, MEDICAID, SELFPAY ==
[2020-08-28 10:57] LABS: BUN 46 mg/dL (7-18); CREATININE 1.4 mg/dL (0.55-1.02); Calcium 8.9 mg/dL (8.5-10.1); Chloride 100 mmol/L (98-107); Estimated GFR 37.51 (mL/min/1.73m2); Glucose 330 mg/dL (74-106); Potassium 4.9 mmol/L (3.5-5.1); Sodium 133 mmol/L (136-145)
[2020-08-29 13:16] LABS: BUN 40 mg/dL (7-18); CREATININE 1.4 mg/dL (0.55-1.02); Calcium 8.9 mg/dL (8.5-10.1); Chloride 97 mmol/L (98-107); Estimated GFR 37.51 (mL/min/1.73m2); Glucose 274 mg/dL (74-106); Sodium 130 mmol/L (136-145)
== END 2020-08-28 10:33 | disposition home or self-care (01) ==
LOC: LBN 10:32
PROVIDERS: PCP Family Medicine; Visit Provider Family Medicine
DX: E87.8 Other disorders of electrolyte and fluid balance, not elsewhere classified (principal)
CPT/HCPCS: 80048

== ENCOUNTER 2020-08-30 08:46 | Outpatient (REF) | payer MEDICARE, MEDICAID, SELFPAY ==
[2020-08-30 09:01] LABS: BUN 41 mg/dL (7-18); CREATININE 1.2 mg/dL (0.55-1.02); Chloride 96 mmol/L (98-107); Estimated GFR 44.81 (mL/min/1.73m2); Glucose 214 mg/dL (74-106); Potassium 4.8 mmol/L (3.5-5.1); Sodium 132 mmol/L (136-145)
== END 2020-08-30 08:47 | disposition home or self-care (01) ==
LOC: NCHCN 08:46
PROVIDERS: PCP Family Medicine; Visit Provider Family Medicine
DX: E87.8 Other disorders of electrolyte and fluid balance, not elsewhere classified (principal); I10 Essential (primary) hypertension
CPT/HCPCS: 80048

== ENCOUNTER 2020-09-01 15:39 | Outpatient (REF) | payer MEDICARE, MEDICAID, BC, SELFPAY ==
[2020-09-01 16:26] LABS: Anion Gap 10.4 mmol/L (3-11); BUN 40 mg/dL (7-18); CO2 23.6 mmol/L (21.0-32.0); CREATININE 1.2 mg/dL (0.55-1.02); Calcium 8.9 mg/dL (8.5-10.1); Chloride 96 mmol/L (98-107); Estimated GFR 44.81 (mL/min/1.73m2); Glucose 262 mg/dL (74-106); Potassium 4.9 mmol/L (3.5-5.1); Sodium 130 mmol/L (136-145)
== END 2020-09-01 15:40 | disposition home or self-care (01) ==
LOC: LBN 15:39
PROVIDERS: PCP Family Medicine; Visit Provider Family Medicine
DX: E11.40 Type 2 diabetes mellitus with diabetic neuropathy, unspecified (principal); I10 Essential (primary) hypertension; E87.8 Other disorders of electrolyte and fluid balance, not elsewhere classified
CPT/HCPCS: 80048

== ENCOUNTER → 2020-09-04 13:41 | Outpatient (BNVA) | payer MEDICARE, BC, MEDICAID, SELFPAY | PROVIDERS: PCP Family Medicine; Referring Provider Family Medicine; Visit Provider Internal Medicine Cardiovascular Disease | DX: I48.91 Unspecified atrial fibrillation (principal); I10 Essential (primary) hypertension; I27.29 Other secondary pulmonary hypertension; G47.33 Obstructive sleep apnea (adult) (pediatric); Z99.89 Dependence on other enabling machines and devices | CPT/HCPCS: 99214 ==

== ENCOUNTER 2020-09-04 15:46 | Outpatient (REF) | payer MEDICARE, BC, MEDICAID, SELFPAY ==
[2020-09-04 16:24] LABS: Anion Gap 10.4 mmol/L (3-11); BUN 50 mg/dL (7-18); CO2 23.6 mmol/L (21.0-32.0); CREATININE 1.4 mg/dL (0.55-1.02); Calcium 9.2 mg/dL (8.5-10.1); Chloride 95 mmol/L (98-107); Estimated GFR 37.51 (mL/min/1.73m2); Glucose 358 mg/dL (74-106); Potassium 5.4 mmol/L (3.5-5.1); Sodium 129 mmol/L (136-145)
== END 2020-09-04 15:47 | disposition home or self-care (01) ==
LOC: NCHCN 15:46
PROVIDERS: PCP Family Medicine; Visit Provider Family Medicine
DX: E87.8 Other disorders of electrolyte and fluid balance, not elsewhere classified (principal)
CPT/HCPCS: 80048

== ENCOUNTER 2020-09-06 11:48 | Outpatient (REF) | payer MEDICARE, BC, MEDICAID, SELFPAY ==
[2020-09-06 12:32] LABS: Anion Gap 11.3 mmol/L (3-11); BUN 51 mg/dL (7-18); CO2 23.7 mmol/L (21.0-32.0); CREATININE 1.2 mg/dL (0.55-1.02); Calcium 8.9 mg/dL (8.5-10.1); Chloride 94 mmol/L (98-107); Estimated GFR 44.81 (mL/min/1.73m2); Glucose 279 mg/dL (74-106); Potassium 4.4 mmol/L (3.5-5.1); Sodium 129 mmol/L (136-145)
== END 2020-09-06 11:49 | disposition home or self-care (01) ==
LOC: LBN 11:48
PROVIDERS: PCP Family Medicine; Visit Provider Family Medicine
DX: E87.8 Other disorders of electrolyte and fluid balance, not elsewhere classified (principal)
CPT/HCPCS: 80048

== ENCOUNTER 2020-09-07 09:40 | Outpatient (REF) | payer MEDICARE, BC, MEDICAID, SELFPAY ==
[2020-09-07 11:35] LABS: ALT 42 U/L (14-59); AST 25 U/L (15-37); Albumin 3.7 g/dL (3.4-5.0); Alkaline Phosphatase 95 U/L (46-116); Anion Gap 10.8 mmol/L (3-11); BUN 55 mg/dL (7-18); Bilirubin, Total 0.6 mg/dL (0.2-1.0); CO2 23.2 mmol/L (21.0-32.0); CREATININE 1.1 mg/dL (0.55-1.02); Calcium 9.3 mg/dL (8.5-10.1); Chloride 100 mmol/L (98-107); Estimated GFR 49.39 (mL/min/1.73m2); Glucose 104 mg/dL (74-106); Potassium 4.5 mmol/L (3.5-5.1); Sodium 134 mmol/L (136-145); Total Protein 7.5 g/dL (6.4-8.2)
[2020-09-08 04:45] LABS: Hemoglobin A1C 8.3 % (<5.7)
== END 2020-09-07 09:41 | disposition home or self-care (01) ==
LOC: NCHCN 09:40
PROVIDERS: PCP Family Medicine; Visit Provider Family Medicine
DX: E11.40 Type 2 diabetes mellitus with diabetic neuropathy, unspecified (principal); E87.8 Other disorders of electrolyte and fluid balance, not elsewhere classified
CPT/HCPCS: 80053; 83036

== ENCOUNTER 2020-09-08 19:16 | Outpatient (REF) | payer MEDICARE, BC, MEDICAID, SELFPAY ==
[2020-09-08 14:42] LABS: Anion Gap 8.1 mmol/L (3-11); BUN 45 mg/dL (7-18); CO2 22.9 mmol/L (21.0-32.0); CREATININE 1.1 mg/dL (0.55-1.02); Calcium 9.1 mg/dL (8.5-10.1); Chloride 101 mmol/L (98-107); Estimated GFR 49.39 (mL/min/1.73m2); Glucose 236 mg/dL (74-106); Potassium 4.8 mmol/L (3.5-5.1); Sodium 132 mmol/L (136-145)
== END 2020-09-08 19:17 | disposition home or self-care (01) ==
LOC: LBN 19:16
PROVIDERS: PCP Family Medicine; Visit Provider Family Medicine
DX: E11.65 Type 2 diabetes mellitus with hyperglycemia (principal); E87.5 Hyperkalemia; E87.1 Hypo-osmolality and hyponatremia
CPT/HCPCS: 80048

== ENCOUNTER 2020-09-11 17:02 | Outpatient (REF) | payer MEDICARE, BC, MEDICAID, SELFPAY ==
[2020-09-11 17:28] LABS: BUN 39 mg/dL (7-18); CREATININE 1.1 mg/dL (0.55-1.02); Calcium 9.4 mg/dL (8.5-10.1); Chloride 98 mmol/L (98-107); Estimated GFR 49.39 (mL/min/1.73m2); Glucose 243 mg/dL (74-106); Potassium 4.8 mmol/L (3.5-5.1); Sodium 134 mmol/L (136-145)
== END 2020-09-11 17:03 | disposition home or self-care (01) ==
LOC: LBN 17:02
PROVIDERS: PCP Family Medicine; Visit Provider Family Medicine
DX: E11.65 Type 2 diabetes mellitus with hyperglycemia (principal); E87.8 Other disorders of electrolyte and fluid balance, not elsewhere classified; K58.0 Irritable bowel syndrome with diarrhea
CPT/HCPCS: 80048

== ENCOUNTER 2020-09-15 18:12 | Outpatient (REF) | payer MEDICARE, BC, MEDICAID, SELFPAY ==
[2020-09-15 14:13] LABS: Anion Gap 10.8 mmol/L (3-11); BUN 35 mg/dL (7-18); CO2 24.2 mmol/L (21.0-32.0); Calcium 8.7 mg/dL (8.5-10.1); Chloride 100 mmol/L (98-107); Estimated GFR 55.14 (mL/min/1.73m2); Glucose 289 mg/dL (74-106); Potassium 4.1 mmol/L (3.5-5.1); Sodium 135 mmol/L (136-145)
== END 2020-09-15 18:13 | disposition home or self-care (01) ==
LOC: NCHCN 18:12
PROVIDERS: PCP Family Medicine; Visit Provider Family Medicine
DX: E11.65 Type 2 diabetes mellitus with hyperglycemia (principal); E87.5 Hyperkalemia; E87.1 Hypo-osmolality and hyponatremia
CPT/HCPCS: 80048

== ENCOUNTER 2020-09-22 14:10 | Outpatient (REF) | payer MEDICARE, BC, MEDICAID, SELFPAY ==
[2020-09-22 15:26] LABS: BUN 29 mg/dL (7-18); CREATININE 0.9 mg/dL (0.55-1.02); Calcium 8.8 mg/dL (8.5-10.1); Chloride 102 mmol/L (98-107); Glucose 193 mg/dL (74-106); Potassium 4.3 mmol/L (3.5-5.1); Sodium 138 mmol/L (136-145)
== END 2020-09-22 14:11 | disposition home or self-care (01) ==
LOC: LBN 14:10
PROVIDERS: PCP Family Medicine; Visit Provider Family Medicine
DX: E87.8 Other disorders of electrolyte and fluid balance, not elsewhere classified (principal); E11.65 Type 2 diabetes mellitus with hyperglycemia; I50.32 Chronic diastolic (congestive) heart failure
CPT/HCPCS: 80048

== ENCOUNTER 2020-09-29 17:59 | Outpatient (REF) | payer MEDICARE, BC, MEDICAID, SELFPAY ==
[2020-09-29 14:41] LABS: BUN 24 mg/dL (7-18); Calcium 8.5 mg/dL (8.5-10.1); Chloride 97 mmol/L (98-107); Estimated GFR 55.14 (mL/min/1.73m2); Glucose 363 mg/dL (74-106); Potassium 4.2 mmol/L (3.5-5.1); Sodium 134 mmol/L (136-145)
== END 2020-09-29 18:00 | disposition home or self-care (01) ==
LOC: NCHCN 17:59
PROVIDERS: PCP Family Medicine; Visit Provider Family Medicine
DX: E11.9 Type 2 diabetes mellitus without complications (principal); E87.8 Other disorders of electrolyte and fluid balance, not elsewhere classified
CPT/HCPCS: 80048

== ENCOUNTER 2020-10-07 01:42 | Emergency (ER) | payer MEDICARE, BC, MEDICAID, SELFPAY ==
[2020-10-07] VITALS (16 sets, daily range): BP systolic 122–141; BP diastolic 49–91; PULSE 52–71; RESP 13–22; TEMP 36.5; O2SAT 92–97
--- NOTE | 2020-10-07 01:30 | RT.EKG_ITS ---
APPROVED REPORT Exam: Resting ECG Patient Location: E HR:56 bpm ECG Measurements Heart Rate 56 AXIS [place] [id number] P [id number] QRSd 85 QRS 41 QT 473 T 88 QTc 457 Conclusion Atrial fibrillation...? atrial activity Low voltage, precordial leads...precordial leads <1.0mV Consider anteroseptal infarct...Q >30mS, dimin R, V1-V2 Physician:no stemi, unchanged from prior ekg on 08/26/20
--- NOTE | 2020-10-07 01:42 | W.ED.GENAD ---
Discharge Plan Disposition Patient Disposition: [facility] (LEVEL 2) [facility] Condition: Good Discharge Details Clinical Impression: 2+ pitting edema, Fluid overload, unspecified Primary Care Provider: Tamika Frias ED Provider: Remy Cabrales Home Meds and New Rx's Prescriptions: Continued (DME) blood-glucose meter misc See Dose Instructions .ROUTE .MEDSUPPLY Qty: 1 RF: 0 (DME) lancets 28 gauge misc 1 ea Miscellaneous TID & PRN Qty: 400 RF: 12 (DME) Blood Glucose Test strip See Dose Instructions .ROUTE .MEDSUPPLY Qty: 400 RF: 5 (DME) insulin syringe needleless [BD Insulin Syringe Slip Tip] 1 mL syringe 1 ea Miscellaneous BID Qty: 120 RF: 12 (DME) pen needle, diabetic [Pen Needle] 30 gauge x 5/16 needle 1 ea Miscellaneous QID Qty: 300 RF: 6 atorvastatin 40 mg tablet 40 mg PO DAILY Qty: 90 RF: 12 ropinirole 1 mg tablet 3 mg PO HS Qty: 150 RF: 12 nystatin 100,000 unit/gram powder 1 applic topical TID Qty: 60 RF: 5 magnesium oxide 400 MG tablet 800 mg PO BID Qty: 0 RF: 0 ropinirole 2 mg Tablet 2 mg PO .NOON RF: 0 loratadine 10 mg Tablet 10 mg PO HS RF: 0 calcium carbonate-vitamin D3 [Calcium 600 + D(3)] 600 mg(1,500mg) -400 unit Tablet 1 tab PO BID RF: 0 Combivent Respimat 20-100 mcg/actuation Mist 1 puff INHALATION TID RF: 0 fluoxetine [Prozac] 40 MG capsule 10 mg PO QAM RF: 0 acetaminophen [Tylenol] 325 MG tablet 650 mg PO BID RF: 0 Humulin R Regular U-100 Insuln 100 unit/mL solution 12 unit Sub-Q AC MDD 75 RF: 0 Humulin N NPH Insulin KwikPen 100 unit/mL (3 mL) insulin pen 30 unit Sub-Q BID@0800,2000 RF: 0 furosemide 80 mg tablet 60 mg PO DAILY RF: 0 levothyroxine 50 mcg tablet 50 mcg PO HS RF: 0 metoprolol tartrate 50 mg tablet 50 mg PO DAILY RF: 0 losartan [Cozaar] 100 mg tablet 50 mg PO QAM RF: 0 Eliquis 5 mg tablet 2.5 mg PO BID RF: 0 No Action fluconazole 150 mg Tablet 150 mg PO QWEEK RF: 0 benzonatate 100 mg Capsule 100 mg PO TID RF: 0 Diabetic Tussin 2 mg/5 mL Liquid 2 mg PO QID RF: 0 Lokelma 5 gram Powder In Packet 5 g PO DAILY RF: 0 Discharge Instructions Instructions: Heart Failure (ED) Additional Instructions: At this time. Chest x-ray and labs show evidence of mild fluid overload from your congestive heart failure. There is no evidence of significant pneumonia, or severe congestive heart failure that needs admission at this time. We did give you 20 mg of IV Lasix. Please double your Lasix dose for the next 1 to 2 days at home. Your electrolytes are normal at this time your kidney function is good. If you notice any worsening of your symptoms, or any new symptoms such as vomiting, diarrhea, fever, chills, shortness of breath, chest pain, numbness, weakness, or fainting , please return immediately to the emergency department for reevaluation. Please follow up with your primary care provider as soon as possible for reassessment and reevaluation. As always, it was a pleasure participating in your medical care today. Referrals: Tamika Frias [Primary Care Provider] - Medical Decision Making This is a 70-year-old female with multiple medical problems including atrial fibrillation on Eliquis, diabetes, gout, hypertension, hypothyroidism, polycythemia, cataracts, previous TIA, who presents today via EMS from the [facility] for shortness of breath. Patient resides at the [facility]. Over the last month she has gained 10 pounds, and had intermittent coughing episodes with mild shortness of breath. She denies any chest pain or chest tightness. She denies any fever, chills, hemoptysis, nausea, vomiting or diarrhea. She does take spironolactone and denies missing any doses. She did have a notable coughing episode tonight, she did not require any additional oxygen. EMS was called, patient herself states that she feels fine but was told she needed to be checked out. Patient has no other complaints at this time. No other modifying factors. Echo from 2018 demonstrates EF greater than 60%, notable pulmonary hypertension. Patient has no history of ACS. She is on 80 of Lasix daily. Patient has received both of her Covid vaccines. Physical exam demonstrates +2 +3 pitting edema in the bases. No respiratory distress whatsoever. Mild crackles in the bases bilaterally. Patient states that she feels fine. She is not using any supplemental oxygen here and shows no signs of difficulty breathing. Suspect mild fluid overload. Will give some Lasix, evaluate for labs and significant electrolyte abnormalities, get a screening chest x-ray, monitor closely and reassess. EKG is notably unchanged and shows no evidence of STEMI or significant heart strain 2:30 AM Laboratory work-up has returned, no white count, bandemia, or other significant abnormality. Renal function is good, electrolytes are normal. BUN is slightly high at 29, and proBNP is high at 1000. Symptoms suggestive of mild fluid overload extra vascularly. Renal function good. Troponin normal. Chest x-ray shows no evidence of pneumonia. Does show mild congestion suggestive of CHF in comparison to the prior chest x-ray however virtual radiology feels that there is no evidence of acute change or mild CHF. I do disagree with this both clinically and radiographically.. 20 mg of IV Lasix was given here. Recommend that the patient double her dose for the next 1 to 2 days based on clinical assessment at home/the [facility]. No indication for admission at this time. No evidence of respiratory compromise. No other abnormality. Patient will be discharged back to [facility]. Discussed red flags which to return. I have extensively reviewed the treatment plan and discharge instructions with the patient. I have addressed all patient concerns at this time. The patient was made aware of what symptoms to monitor for that would warrant a return to the emergency department. Discussed the plan with the patient, they demonstrate verbal understanding and agreement with our assessment and plan at this time. The documentation in this chart was dictated using [employer] dictation software. Please excuse any dictation errors. FINDINGS: There is no evidence of consolidation. No pleural effusion or pneumothorax. No vascular congestion. Heart size is accentuated by the portable technique. There are bilateral linear regions of scarring versus discoid atelectasis similar to the prior study. IMPRESSION: Stable chest. No evidence of pneumonia or CHF. Thank you for allowing us to participate in the care of your patient. Dictated and Authenticated by: Abhilash Bruce MD 10/07/2020 2:51 AM Eastern Time ([place] & [place]) HPI General Date/Time Provider Initiated Documentation: 10/07/20 02:15. HPI Narrative: This is a 70-year-old female with multiple medical problems including atrial fibrillation on Eliquis, diabetes, gout, hypertension, hypothyroidism, polycythemia, cataracts, previous TIA, who presents today via EMS from the [facility] for shortness of breath. Patient resides at the [facility]. Over the last month she has gained 10 pounds, and had intermittent coughing episodes with mild shortness of breath. She denies any chest pain or chest tightness. She denies any fever, chills, hemoptysis, nausea, vomiting or diarrhea. She does take spironolactone and denies missing any doses. She did have a notable coughing episode tonight, she did not require any additional oxygen. EMS was called, patient herself states that she feels fine but was told she needed to be checked out. Patient has no other complaints at this time. No other modifying factors. Echo from 2018 demonstrates EF greater than 60%, notable pulmonary hypertension. Patient has no history of ACS. Related Data Home Medications Medication Instructions Recorded Confirmed insulin syringe needleless 1 mL #120 syringe 04/10/18 02/26/20 pen needle, diabetic 30 gauge x #300 ndl 04/10/18 02/26/2011/23 blood-glucose meter #1 each 11/14/18 02/26/20 blood sugar diagnostic #400 each 11/29/18 02/26/20 lancets 28 gauge #400 ea 11/29/18 02/26/20 magnesium oxide 800 mg PO BID #0 tab 01/16/19 10/07/20 atorvastatin 40 mg tablet 40 mg PO DAILY #90 tab-cap 02/20/19 10/07/20 ropinirole 1 mg tablet 3 mg PO HS #150 tab 05/01/19 10/07/20 nystatin 100,000 unit/gram topical 1 applic TOPICAL TID #60 gm 07/24/19 10/07/20 powder Combivent Respimat 1 puff INHALATION TID 08/26/20 10/07/20 Humulin N NPH Insulin KwikPen 30 unit SUB-Q BID@0800,2000 08/26/20 10/07/20 Humulin R Regular U-100 Insuln 12 unit SUB-Q AC MDD 75 08/26/20 10/07/20 acetaminophen [Tylenol] 650 mg PO BID 08/26/20 10/07/20 calcium carbonate-vitamin D3 1 tab PO BID 08/26/20 10/07/20 [Calcium 600 + D(3)] fluoxetine [Prozac] 10 mg PO QAM 08/26/20 10/07/20 loratadine 10 mg PO HS 08/26/20 10/07/20 ropinirole 2 mg PO .NOON 08/26/20 10/07/20 Eliquis 2.5 mg PO BID 10/07/20 10/07/20 benzonatate 100 mg PO TID 10/07/20 10/07/20 chlorpheniramine maleate [Diabetic 2 mg PO QID 10/07/20 10/07/20 Tussin] fluconazole 150 mg PO QWEEK 10/07/20 10/07/20 furosemide 60 mg PO DAILY 10/07/20 10/07/20 levothyroxine 50 mcg PO HS 10/07/20 10/07/20 losartan [Cozaar] 50 mg PO QAM 10/07/20 10/07/20 metoprolol tartrate 50 mg PO DAILY 10/07/20 10/07/20 sodium zirconium cyclosilicate 5 g PO DAILY 10/07/20 10/07/20 [Lokelma] Previous Rx's Medication Instructions Recorded insulin syringe needleless 1 mL #120 syringe 04/10/18 pen needle, diabetic 30 gauge x #300 ndl 04/10/1811/23 blood-glucose meter #1 each 11/14/18 blood sugar diagnostic #400 each 11/29/18 lancets 28 gauge #400 ea 11/29/18 magnesium oxide 800 mg PO BID #0 tab 01/16/19 atorvastatin 40 mg tablet 40 mg PO DAILY #90 tab-cap 02/20/19 ropinirole 1 mg tablet 3 mg PO HS #150 tab 05/01/19 nystatin 100,000 unit/gram topical 1 applic TOPICAL TID #60 gm 07/24/19 powder Allergies Allergy/AdvReac Type Severity Reaction Status Date / Time No Known Allergies Allergy Verified 10/07/20 01:53 General JOLEEN: 3 Review of Systems All systems reviewed & are unremarkable except as noted in HPI and below [facility] Medical History (Updated 10/07/20 @ 02:23 by Remy Cabrales DO) Amputated toe GANGRENOUS 2ND AND 3RD RIGHT TOES 11/14/17 Amputated toe of right foot Arthritis Atrial fibrillation Atrial fibrillation (04/13/17) Bilateral lower leg cellulitis (05/29/14) a. right worse than left Cataract mild; Fine Drusen in macula-OD S/P SURGERY Cellulitis of leg (10/31/14) Depression Depressive disorder Displaced bimalleolar fracture of right ankle (05/29/14) DJD of shoulder a. 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 Left ankle 2012 Hearing loss Hearing loss BILATERAL AIDS difficulties w/ the hearing aids History of tobacco use a. 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 DJD; Left knee-mild DJD; Left-severe DJD; Right-hip mild DJD Otosclerosis (10/14/14) Polycythemia (03/08/17) Pulmonary hypertension (04/13/17) Pulmonary hypertension due to sleep-disordered breathing Restless legs syndrome Sciatica right; xray from 02/10 showed scattered spondylosis ant L4-5 on the left and mid lumbar scoliosis convex to the right Sensorineural hearing loss, bilateral (05/24/17) Sleep apnea with use of continuous positive airway pressure (CPAP) Toe gangrene Transient ischemic attack Type 2 diabetes mellitus with diabetic neuropathy (05/13/15) [place] [facility] [place] stasis Vitamin D deficiency (05/07/15) Surgical History Amputation RIGHT SECOND AND THIRD TOES DUE TO DIABETIC ULCERS WITH CELLULITIS;11/14/17 DR. MAI Colonoscopy - MAC (~2003) Extraction of cataract 04/15/17 DR. ARRIETA; LEFT EYE 04/29/17 DR. ARRIETA; RIGHT EYE PROCEDURES REPAIR OF INTESTINE NEC puncture during colonoscopy ACHILLOTENOTOMY L Achilles tendon repair Family History Mother Neoplasm LUNG Father Heart disease Brother Heart disease Sister No problems noted. Grandfather Heart disease Grandfather Heart disease Grandmother Diabetes Grandmother Diabetes Sister No problems noted. Sister No problems noted. Sister Diabetes Sister No problems noted. Brother No problems noted. Brother No problems noted. Social History Smoking/Tobacco Use Status: Former Tobacco Use Smoking risk assessment performed?: Yes Alcohol Intake: never Drug use: Never Substance use type: does not use Current gender identity: female Do you feel safe at home: Yes Do you feel safe in your relationship?: Yes Exam Narrative Exam Narrative: 1.Const: Well-nourished, Well-developed, appearing stated age 2.Eyes: PERRL, no conjunctival injection, and symmetrical lids. 3.ENT: Atraumatic external nose and ears. Moist MM. Neck: Symmetric, trachea midline, No thyromegaly. 4.CVS: +S1/S2, No murmurs or gallops. Peripheral pulses 2+ and equal in all extremities. Brisk capillary refill in all extremities. 5.RESP: Unlabored respiratory effort. Mild crackles in the bases bilaterally, no wheezes or rhonchi. 6.GI: Soft, Nontender/Nondistended, No hepatosplenomegaly. No guarding or rebound. 7.MSK: Normocephalic/Atraumatic, Extremities w/o deformity or ttp No cyanosis or clubbing, Normal movement of all extremities, +2-3 pitting edema of the lower extremities bilaterally. No redness, no swelling, no calf tenderness. No asymmetric swelling. 8.Skin: Warm, Dry. No rashes or lesions. 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 Sensation grossly intact, no focal neurologic deficits. 10.Psych: (AAO) x3. Appropriate mood and affect
--- NOTE | 2020-10-07 01:45 | DI.RAD_ITS ---
EXAM: XR PORTABLE CHEST AP CLINICAL HISTORY: cough, suspect chf TECHNIQUE: 2D digital imaging was performed. COMPARISON: CT CHEST WITH CONTRAST from 05/20/2017 CR,XR XR CHEST 2V PA LATERAL from 08/03/2019 CR,XR XR PORTABLE CHEST AP from 09/30/[address] CHEST PE ABD PELVIS W from 09/30/[address] CHEST PE ABD PELVIS W from 09/30/2019 FINDINGS: The exam is limited secondary to patient body habitus and technique. LUNGS: There are underlying fibrotic changes. Increased interstitial markings and vascular prominenc e which could indicate mild CHF versus chronic findings. No effusions or focal infiltrate. Infiltra leilani or demonstrated on recent chest CT. HEART: Enlarged, stable. BONES: Degenerative changes. IMPRESSION: Exam is limited by patient body habitus and technique. Question of mild CHF versus chronic fibrotic changes. DATA REPOSITORY: RADIATION DOSE DELIVERED:
[2020-10-07 02:00] LABS: Abs Immature Grans 0.04 10^3/uL (0.0-0.06); Absolute Basophil Count 0.09 10^3/uL (0.0-0.2); Absolute Eosinophil Count 0.82 10^3/uL (0.0-0.7); Absolute Lymphocyte Count 2.97 10^3/uL (1.2-3.4); Absolute Monocyte Count 0.86 10^3/uL (0.1-0.8); Absolute Neutrophil Count 5.31 10^3/uL (1.2-6.7); Basophils % 0.9; Eosinophils % 8.1; HCT 41.3 % (36.0-46.0); HGB 13.7 g/dL (11.2-15.7); Immature Grans % 0.4; Lymphocytes % 29.4; MCH 32.1 pg (27.0-33.0); MCHC 33.2 % (32.0-36.0); MCV 96.7 fL (80-95); MPV 10.4 fL (8.0-11.0); Monocytes % 8.5; Neutrophils % 52.7; Nucleated RBC 0 %; Platelet Count 223 10^3/uL (130-400); RBC 4.27 10^6/uL (3.93-5.22); RDW 12.2 % (11.7-14.6); RDW-SD 43.2 fL; WBC 10.09 10^3/uL (4.4-10.8)
[2020-10-07] MEDS: Furosemide 20 MG/2 ML VIAL IVP (02:00)
[2020-10-07 02:22] LABS: Anion Gap 9.6 mmol/L (3-11); BUN 29 mg/dL (7-18); CO2 27.4 mmol/L (21.0-32.0); Chloride 98 mmol/L (98-107); Estimated GFR 55.14 (mL/min/1.73m2); Glucose 227 mg/dL (74-106); NT-proBNP 999 pg/mL (<300); Potassium 3.7 mmol/L (3.5-5.1); Sodium 135 mmol/L (136-145)
[2020-10-07 02:24] LABS: Troponin I < 0.05 ng/mL (<0.06)
--- NOTE | 2020-10-07 02:52 | DI.VRAD_ITS ---
PROCEDURE INFORMATION: Exam: XR Chest Exam date and time: 10/07/2020 2:16 AM Age: 70 years old Clinical indication: Patient HX: Cough, suspect chf TECHNIQUE: Imaging protocol: XR of the chest Views: 1 view. Total images: 1 COMPARISON: CR XR PORTABLE CHEST AP 09/30/2019 11:49 AM FINDINGS: There is no evidence of consolidation. No pleural effusion or pneumothorax. No vascular congestion. Heart size is accentuated by the portable technique. There are bilateral linear regions of scarring versus discoid atelectasis similar to the prior study. IMPRESSION: Stable chest. No evidence of pneumonia or CHF. Dictated and Authenticated by: Abhilash Bruce MD. Ordering:MENDEZ Alberto MD
== END 2020-10-07 03:20 | disposition intermediate care facility (04) ==
LOC: ER 02:55
PROVIDERS: Emergency Provider Student in an Organized Health Care Education/Training Program; PCP Family Medicine
DX: R60.0 Localized edema (principal); E87.79 Other fluid overload; I11.0 Hypertensive heart disease with heart failure; I50.9 Heart failure, unspecified
CPT/HCPCS: 80048; 93005; 96374; 99285; 71045; 83880; 84484; 85025; 93010; J1941

== ENCOUNTER 2020-10-10 14:33 | Outpatient (REF) | payer MEDICARE, BC, MEDICAID, SELFPAY ==
[2020-10-10 15:00] LABS: Anion Gap 9.1 mmol/L (3-11); BUN 29 mg/dL (7-18); CO2 26.9 mmol/L (21.0-32.0); CREATININE 1.3 mg/dL (0.55-1.02); Calcium 9.2 mg/dL (8.5-10.1); Chloride 99 mmol/L (98-107); Estimated GFR 40.73 (mL/min/1.73m2); Glucose 244 mg/dL (74-106); Potassium 4.2 mmol/L (3.5-5.1); Sodium 135 mmol/L (136-145)
== END 2020-10-10 14:34 | disposition home or self-care (01) ==
LOC: LBN 14:33
PROVIDERS: PCP Family Medicine; Visit Provider Family Medicine
DX: E11.9 Type 2 diabetes mellitus without complications (principal); E87.8 Other disorders of electrolyte and fluid balance, not elsewhere classified
CPT/HCPCS: 80048

== ENCOUNTER 2020-10-21 13:24 | Outpatient (REF) | payer MEDICARE, BC, MEDICAID, SELFPAY ==
[2020-10-21 13:45] LABS: BUN 18 mg/dL (7-18); CREATININE 0.9 mg/dL (0.55-1.02); Calcium 8.8 mg/dL (8.5-10.1); Chloride 103 mmol/L (98-107); Glucose 295 mg/dL (74-106); Sodium 139 mmol/L (136-145)
== END 2020-10-21 13:25 | disposition home or self-care (01) ==
LOC: LBN 13:24
PROVIDERS: PCP Family Medicine; Visit Provider Family Medicine
DX: E11.9 Type 2 diabetes mellitus without complications (principal); E87.8 Other disorders of electrolyte and fluid balance, not elsewhere classified
CPT/HCPCS: 80048

== ENCOUNTER 2020-10-22 17:32 | Outpatient (REF) | payer MEDICARE, BC, MEDICAID, SELFPAY ==
[2020-10-22 17:31] LABS: Abs Immature Grans 0.06 10^3/uL (0.0-0.06); Absolute Basophil Count 0.11 10^3/uL (0.0-0.2); Absolute Eosinophil Count 0.75 10^3/uL (0.0-0.7); Absolute Lymphocyte Count 2.44 10^3/uL (1.2-3.4); Absolute Monocyte Count 0.75 10^3/uL (0.1-0.8); Absolute Neutrophil Count 6.14 10^3/uL (1.2-6.7); Basophils % 1.1; Eosinophils % 7.3; HCT 41.2 % (36.0-46.0); HGB 13.7 g/dL (11.2-15.7); Immature Grans % 0.6; Lymphocytes % 23.8; MCHC 33.3 % (32.0-36.0); MCV 96.3 fL (80-95); MPV 11.3 fL (8.0-11.0); Monocytes % 7.3; Neutrophils % 59.9; Nucleated RBC 0 %; Platelet Count 222 10^3/uL (130-400); RBC 4.28 10^6/uL (3.93-5.22); RDW 12.6 % (11.7-14.6); RDW-SD 44.3 fL; WBC 10.25 10^3/uL (4.4-10.8)
== END 2020-10-22 17:33 | disposition home or self-care (01) ==
LOC: LBN 17:32
PROVIDERS: PCP Family Medicine; Visit Provider Family Medicine
DX: R60.0 Localized edema (principal); R68.89 Other general symptoms and signs
CPT/HCPCS: 85025

== ENCOUNTER 2020-10-24 12:36 | Outpatient (REF) | payer MEDICARE, BC, MEDICAID, SELFPAY ==
[2020-10-24 13:50] LABS: Abs Immature Grans 0.04 10^3/uL (0.0-0.06); Absolute Basophil Count 0.08 10^3/uL (0.0-0.2); Absolute Eosinophil Count 0.73 10^3/uL (0.0-0.7); Absolute Lymphocyte Count 2.16 10^3/uL (1.2-3.4); Absolute Monocyte Count 0.76 10^3/uL (0.1-0.8); Absolute Neutrophil Count 6.35 10^3/uL (1.2-6.7); Basophils % 0.8; Eosinophils % 7.2; HCT 40.9 % (36.0-46.0); HGB 13.6 g/dL (11.2-15.7); Immature Grans % 0.4; Lymphocytes % 21.3; MCH 31.7 pg (27.0-33.0); MCHC 33.3 % (32.0-36.0); MCV 95.3 fL (80-95); MPV 11.4 fL (8.0-11.0); Monocytes % 7.5; Neutrophils % 62.8; Nucleated RBC 0 %; Platelet Count 205 10^3/uL (130-400); RBC 4.29 10^6/uL (3.93-5.22); RDW 12.7 % (11.7-14.6); RDW-SD 43.9 fL; WBC 10.12 10^3/uL (4.4-10.8)
[2020-10-24 13:52] LABS: Anion Gap 9.9 mmol/L (3-11); BUN 22 mg/dL (7-18); CO2 25.1 mmol/L (21.0-32.0); Calcium 8.9 mg/dL (8.5-10.1); Chloride 100 mmol/L (98-107); Estimated GFR 55.14 (mL/min/1.73m2); Glucose 360 mg/dL (74-106); Sodium 135 mmol/L (136-145)
== END 2020-10-24 12:37 | disposition home or self-care (01) ==
LOC: LBN 12:36
PROVIDERS: PCP Family Medicine; Visit Provider Family Medicine
DX: R60.0 Localized edema (principal); E87.8 Other disorders of electrolyte and fluid balance, not elsewhere classified; E11.9 Type 2 diabetes mellitus without complications; R68.89 Other general symptoms and signs
CPT/HCPCS: 80048; 85025

== ENCOUNTER 2020-10-28 23:31 | Outpatient (REF) | payer MEDICARE, BC, MEDICAID, SELFPAY ==
[2020-10-28 19:23] LABS: Abs Immature Grans 0.04 10^3/uL (0.0-0.06); Absolute Basophil Count 0.09 10^3/uL (0.0-0.2); Absolute Eosinophil Count 0.77 10^3/uL (0.0-0.7); Absolute Lymphocyte Count 2.69 10^3/uL (1.2-3.4); Absolute Monocyte Count 0.88 10^3/uL (0.1-0.8); Absolute Neutrophil Count 5.23 10^3/uL (1.2-6.7); Basophils % 0.9; Eosinophils % 7.9; HCT 43.2 % (36.0-46.0); HGB 14.1 g/dL (11.2-15.7); Immature Grans % 0.4; Lymphocytes % 27.7; MCHC 32.6 % (32.0-36.0); MCV 98.2 fL (80-95); MPV 11.6 fL (8.0-11.0); Monocytes % 9.1; Nucleated RBC 0 %; Platelet Count 234 10^3/uL (130-400); RDW 12.7 % (11.7-14.6); RDW-SD 45.3 fL
[2020-10-28 19:41] LABS: Anion Gap 10.1 mmol/L (3-11); BUN 22 mg/dL (7-18); CO2 28.9 mmol/L (21.0-32.0); Calcium 9.4 mg/dL (8.5-10.1); Chloride 99 mmol/L (98-107); Estimated GFR 55.14 (mL/min/1.73m2); Glucose 235 mg/dL (74-106); Potassium 4.4 mmol/L (3.5-5.1); Sodium 138 mmol/L (136-145)
== END 2020-10-28 23:32 | disposition home or self-care (01) ==
LOC: LBN 23:31
PROVIDERS: PCP Family Medicine; Visit Provider Family Medicine
DX: I50.32 Chronic diastolic (congestive) heart failure (principal); E11.65 Type 2 diabetes mellitus with hyperglycemia; E87.8 Other disorders of electrolyte and fluid balance, not elsewhere classified
CPT/HCPCS: 80048; 85025

== ENCOUNTER 2020-12-30 12:55 | Outpatient (REF) | payer MEDICARE, BC, MEDICAID, SELFPAY ==
[2020-12-30 15:12] LABS: Calculated LDL 37 mg/dL (<100); Cholesterol 108 mg/dL (<200); HDL Cholesterol 52 mg/dL (40-60); TSH (W/Ref FT4) 3.19 uIU/mL (0.36-3.74); Triglyceride 98 mg/dL (<150)
== END 2020-12-30 12:56 | disposition home or self-care (01) ==
LOC: NCHCN 12:55
PROVIDERS: PCP Family Medicine; Visit Provider Family Medicine
DX: E03.8 Other specified hypothyroidism (principal); E11.65 Type 2 diabetes mellitus with hyperglycemia; I73.89 Other specified peripheral vascular diseases; I25.10 Atherosclerotic heart disease of native coronary artery without angina pectoris
CPT/HCPCS: 80061; 84443

== ENCOUNTER 2021-01-13 15:01 | Outpatient (REF) | payer MEDICARE, BC, MEDICAID, SELFPAY ==
[2021-01-13 17:15] LABS: Abs Immature Grans 0.04 10^3/uL (0.0-0.06); Absolute Basophil Count 0.08 10^3/uL (0.0-0.2); Absolute Eosinophil Count 0.64 10^3/uL (0.0-0.7); Absolute Monocyte Count 0.62 10^3/uL (0.1-0.8); Absolute Neutrophil Count 5.56 10^3/uL (1.2-6.7); Basophils % 0.9; Eosinophils % 7.2; HCT 45.6 % (36.0-46.0); HGB 14.6 g/dL (11.2-15.7); Immature Grans % 0.4; Lymphocytes % 22.4; MCH 30.5 pg (27.0-33.0); MCV 95.4 fL (80-95); MPV 11.6 fL (8.0-11.0); Monocytes % 6.9; Neutrophils % 62.2; Nucleated RBC 0 %; Platelet Count 222 10^3/uL (130-400); RBC 4.78 10^6/uL (3.93-5.22); RDW 13.6 % (11.7-14.6); RDW-SD 47.9 fL; WBC 8.94 10^3/uL (4.4-10.8)
[2021-01-13 17:54] LABS: Anion Gap 13.4 mmol/L (3-11); BUN 26 mg/dL (7-18); CO2 24.6 mmol/L (21.0-32.0); CREATININE 1.3 mg/dL (0.55-1.02); Chloride 101 mmol/L (98-107); Estimated GFR 40.73 (mL/min/1.73m2); Glucose 347 mg/dL (74-106); Potassium 4.3 mmol/L (3.5-5.1); Sodium 139 mmol/L (136-145)
[2021-01-13 17:58] LABS: Hemoglobin A1C 8.5 % (<5.7)
== END 2021-01-13 15:02 | disposition home or self-care (01) ==
LOC: LBN 15:01
PROVIDERS: PCP Family Medicine; Visit Provider Nurse Practitioner Gerontology
DX: E11.65 Type 2 diabetes mellitus with hyperglycemia (principal); L03.116 Cellulitis of left lower limb; I50.32 Chronic diastolic (congestive) heart failure
CPT/HCPCS: 80048; 83036; 85025

== ENCOUNTER 2021-01-22 02:07 | Outpatient (CLI) | payer MEDICARE, BC, MEDICAID, SELFPAY ==
--- NOTE | 2021-01-22 | DI.MAMMO_ITS ---
Exam(s) MG MAMMO SCREENING 60 MIN DUR EXAM: MG MAMMO SCREENING 60 MIN DUR CLINICAL HISTORY: SCREENING, PREVENTATIVE,Z00.00. TECHNIQUE: Bilateral full field digital CC and MLO mammographic images were obtained with 3D tomosyn thesis and utilizing computer aided detection (CAD). COMPARISON: Prior mammograms dating back to 2010, the most recent being . FINDINGS: There are no new spiculated masses nor malignant appearing microcalcification groups. A microcalcification group posteriorly in the right breast seen on the CC view is unchanged from at [place] July 2018. There is no significant architectural distortion nor skin thickening-retraction. IMPRESSION: Stable benign findings. No radiographic evidence of malignancy. BI-RADS Category 2 - Benign Findings Breast Density - Category A - Almost entirely fatty Breast density Category C or D implies that the patient has dense breast tissue. Dense breast tissue can make it harder to find cancer on a mammogram. Dense breast tissue is also associated with an incr eased risk of breast cancer. This information about the result of the mammogram report was provided to the patient to raise their awareness. Use this report when you speak with the patient about their risks for breast cancer, which includes their family history. At that time, you may recommend additional screening tests (Ultrasoun d or MRI) as these tests may add significant information. A negative radiographic report should not delay biopsy if a dominant or clinically suspicious mass is present. Up to ten percent of cancers are not identified on mammography. A negative report may reinforce clinical impression. Adenosis and dense breasts may obscure an underlying neoplasm. False positive reports average 6 to 10%. Patient will receive a letter notifying them of these results.
== END 2021-01-22 02:27 ==
PROVIDERS: PCP Family Medicine; Visit Provider Nurse Practitioner Gerontology
DX: Z00.00 Encounter for general adult medical examination without abnormal findings (principal); Z12.31 Encounter for screening mammogram for malignant neoplasm of breast
CPT/HCPCS: 77063; 77067

== ENCOUNTER 2021-02-24 18:43 | Outpatient (REF) | payer MEDICARE, BC, MEDICAID, SELFPAY ==
[2021-02-24 20:07] LABS: Abs Immature Grans 0.04 10^3/uL (0.0-0.06); Absolute Basophil Count 0.08 10^3/uL (0.0-0.2); Absolute Eosinophil Count 0.51 10^3/uL (0.0-0.7); Absolute Lymphocyte Count 2.43 10^3/uL (1.2-3.4); Absolute Monocyte Count 0.71 10^3/uL (0.1-0.8); Absolute Neutrophil Count 6.93 10^3/uL (1.2-6.7); Basophils % 0.7; Eosinophils % 4.8; HGB 13.9 g/dL (11.2-15.7); Immature Grans % 0.4; Lymphocytes % 22.7; MCHC 32.3 % (32.0-36.0); MCV 95.8 fL (80-95); MPV 11.6 fL (8.0-11.0); Monocytes % 6.6; Neutrophils % 64.8; Nucleated RBC 0 %; Platelet Count 228 10^3/uL (130-400); RBC 4.49 10^6/uL (3.93-5.22); RDW 14.3 % (11.7-14.6); RDW-SD 49.8 fL
[2021-02-24 20:31] LABS: Anion Gap 7.2 mmol/L (3-11); BUN 25 mg/dL (7-18); CO2 28.8 mmol/L (21.0-32.0); Calcium 8.9 mg/dL (8.5-10.1); Chloride 103 mmol/L (98-107); Estimated GFR 55.14 (mL/min/1.73m2); Glucose 139 mg/dL (74-106); NT-proBNP 1302 pg/mL (<300); Potassium 4.1 mmol/L (3.5-5.1); Sodium 139 mmol/L (136-145)
== END 2021-02-24 18:44 | disposition home or self-care (01) ==
LOC: LBN 18:43
PROVIDERS: PCP Family Medicine; Visit Provider Nurse Practitioner Gerontology
DX: I50.9 Heart failure, unspecified (principal); R05 Cough
CPT/HCPCS: 80048; 83880; 85025

== ENCOUNTER 2021-02-26 17:26 | Outpatient (REF) | payer MEDICARE, BC, MEDICAID, SELFPAY ==
[2021-02-26 18:56] LABS: NT-proBNP 743 pg/mL (<300)
== END 2021-02-26 17:27 | disposition home or self-care (01) ==
LOC: LBN 17:26
PROVIDERS: PCP Family Medicine; Visit Provider Nurse Practitioner Gerontology
DX: I50.9 Heart failure, unspecified (principal)
CPT/HCPCS: 83880

== ENCOUNTER 2021-02-28 15:05 | Outpatient (REF) | payer MEDICARE, BC, MEDICAID, SELFPAY ==
[2021-02-28 15:44] LABS: Anion Gap 6.3 mmol/L (3-11); BUN 35 mg/dL (7-18); CO2 31.7 mmol/L (21.0-32.0); CREATININE 1.2 mg/dL (0.55-1.02); Calcium 8.9 mg/dL (8.5-10.1); Chloride 100 mmol/L (98-107); Estimated GFR 44.68 (mL/min/1.73m2); Glucose 255 mg/dL (74-106); NT-proBNP 761 pg/mL (<300); Sodium 138 mmol/L (136-145)
== END 2021-02-28 15:06 | disposition home or self-care (01) ==
LOC: LBN 15:05
PROVIDERS: PCP Family Medicine; Visit Provider Nurse Practitioner Gerontology
DX: I50.9 Heart failure, unspecified (principal); R60.9 Edema, unspecified
CPT/HCPCS: 80048; 83880

== ENCOUNTER 2021-03-04 14:16 | Outpatient (REF) | payer MEDICARE, BC, MEDICAID, SELFPAY ==
[2021-03-04 16:51] LABS: Anion Gap 10.1 mmol/L (3-11); BUN 35 mg/dL (7-18); CO2 28.9 mmol/L (21.0-32.0); CREATININE 1.3 mg/dL (0.55-1.02); Calcium 8.4 mg/dL (8.5-10.1); Chloride 98 mmol/L (98-107); Estimated GFR 40.73 (mL/min/1.73m2); Glucose 240 mg/dL (74-106); NT-proBNP 642 pg/mL (<300); Sodium 137 mmol/L (136-145)
== END 2021-03-04 14:17 | disposition home or self-care (01) ==
LOC: LBN 14:16
PROVIDERS: PCP Family Medicine; Visit Provider Nurse Practitioner Gerontology
DX: I50.9 Heart failure, unspecified (principal); E87.8 Other disorders of electrolyte and fluid balance, not elsewhere classified; R63.5 Abnormal weight gain; R60.0 Localized edema
CPT/HCPCS: 80048; 83880

== ENCOUNTER 2021-03-06 08:16 | Emergency (ER) | payer MEDICARE, BC, MEDICAID, SELFPAY ==
[2021-03-06 08:15] VITALS: BP 157/94; PULSE 68; RESP 16; TEMP 36.3; O2SAT 97
--- NOTE | 2021-03-06 08:16 | W.ED.GENAD ---
Discharge Plan Disposition Patient Disposition: HOME Condition: Improving Discharge Details Clinical Impression: Fall, Contusion of left hip, Abrasion of right knee Primary Care Provider: Tamika Frias ED Provider: Carlita Hale Home Meds and New Rx's Prescriptions: Continued (DME) blood-glucose meter misc See Dose Instructions .ROUTE .MEDSUPPLY Qty: 1 RF: 0 (DME) lancets 28 gauge misc 1 ea Miscellaneous TID & PRN Qty: 400 RF: 12 (DME) Blood Glucose Test strip See Dose Instructions .ROUTE .MEDSUPPLY Qty: 400 RF: 5 (DME) insulin syringe needleless [BD Insulin Syringe Slip Tip] 1 mL syringe 1 ea Miscellaneous BID Qty: 120 RF: 12 (DME) pen needle, diabetic [Pen Needle] 30 gauge x 5/16 needle 1 ea Miscellaneous QID Qty: 300 RF: 6 atorvastatin 40 mg tablet 40 mg PO DAILY Qty: 90 RF: 12 acetaminophen 325 mg Tablet 650 mg PO BID RF: 0 torsemide 20 mg Tablet 60 mg PO BID RF: 0 loperamide 2 mg Capsule See Rx Instructions .ROUTE .COMPLEX RF: 0 metoprolol succinate 50 mg Tablet Extended Release 24 Hr 50 mg PO DAILY RF: 0 ropinirole 3 mg Tablet 3 mg PO HS RF: 0 guaifenesin [Tussin] 100 mg/5 mL Liquid 200 mg PO QID RF: 0 bisacodyl [Dulcolax (bisacodyl)] 10 mg Suppository 10 mg MI PRN PRNRF: 0 fluoxetine 10 mg Capsule 10 mg PO DAILY RF: 0 mupirocin 2 % Ointment 1 applic TOPICAL BID RF: 0 insulin lispro [Humalog U-100 Insulin] 100 unit/mL Solution 12 unit subcut BID RF: 0 Lactobacillus acidophilus [Acidophilus] Capsule 1 cap PO DAILY RF: 0 albuterol sulfate 90 mcg/actuation Hfa Aerosol Inhaler 2 puff INHALATION Q6H PRN PRNRF: 0 fluticasone propionate [Flonase Allergy Relief] 50 mcg/actuation [place],Suspension 2 spray INTRANASAL BID RF: 0 Spiriva with HandiHaler 18 mcg Capsule, W/Inhalation Device 1 cap INHALATION DAILY RF: 0 budesonide-formoterol 160-4.5 mcg/actuation Hfa Aerosol Inhaler 2 puff INHALATION BID RF: 0 Lantus Solostar U-100 Insulin 100 unit/mL (3 mL) Insulin Pen 40 unit SUBCUT HS RF: 0 Lantus Solostar U-100 Insulin 100 unit/mL (3 mL) Insulin Pen 55 unit subcut QAM RF: 0 ropinirole 2 mg Tablet 2 mg PO .NOON RF: 0 calcium carbonate-vitamin D3 [Calcium 600 + D(3)] 600 mg(1,500mg) -400 unit Tablet 1 tab PO BID RF: 0 acetaminophen [Tylenol] 325 MG tablet 650 mg PO BID PRNRF: 0 Humulin R Regular U-100 Insuln 100 unit/mL solution See Rx Instructions .ROUTE .COMPLEX MDD 75 RF: 0 Eliquis 5 mg tablet 2.5 mg PO BID RF: 0 benzonatate 100 mg Capsule 100 mg PO TID PRNRF: 0 Discharge Instructions Instructions: Contusion in Adults (ED), Abrasion (ED) Additional Instructions: Rest, ice, and elevate the affected area as much as possible. Take Tylenol as needed and directed for pain. If you need additional pain relief, your doctor may consider prescribing prescription pain medication for a short period of time. Follow-up with your primary care doctor within the next week. Return to the emergency department with any worsening or new concerning symptoms. Discharge Data Discharge Date/Time-TO BE ENTERED AT DEPARTURE: 03/06/21 11:16 Discharge Physician: Carlita Hale Medical Decision Making 70-year-old female with a history of total left hip replacement with h/o periprosthetic hip fracture in 07/2019, morbid obesity, diabetes, hypothyroidism, atrial fibrillation on Eliquis, pulmonary hypertension presents for left hip and right knee pain status post mechanical fall this morning. Left hip pain with range of motion but no obvious left lower extremity shortening or external rotation. Abrasion to right anterior knee but no obvious ligament laxity or deformity. Midline L-spine tender. Lungs clear. Abdomen soft and nontender. Will refer for x-rays and give a dose of Tylenol and reassess. X-rays reviewed and negative for acute findings. Patient did not have complete relief of pain with Tylenol and was given tramadol with additional relief. Will discharge back to the [facility]. Advised to follow-up with the PCP for reevaluation and to return here with any worsening symptoms. Medical Records Medical records reviewed: Yes I reviewed the patient's medical records. Imaging Data Radiologic Study: Radiologist's impression: XR ANKLE RT COMPLETE CLINICAL HISTORY: s/p fall, r/o fx TECHNIQUE: COMPARISON: CR XR ANKLE LT COMPLETE from 05/23/2019 FINDINGS: Three views were obtained. There are fixation screws in the medial and lateral malleoli. There are severe degenerative changes of the joints of the ankle and midfoot. There is no evidence of acute fracture or dislocation. XR FEMUR LT CLINICAL HISTORY: s/p fall, r/o fx TECHNIQUE: COMPARISON: CR XR FEMUR LT from 08/06/2019 CR XR PELVIS AP from 03/06/2021 CR XR PELVIS AP from 03/06/2021 FINDINGS: Four views of the femur and an AP view of the pelvis were obtained. There is a total hip joint replacement in position on the left. The components appear well seated. There is no evidence of a femoral or pelvic fracture. XR KNEE RT 4V AP,LAT,SAIDA,PAT CLINICAL HISTORY: s/p fall, r/o fx TECHNIQUE: COMPARISON: CR RIGHT KNEE 3 VIEWS from 06/26/2012 FINDINGS: Four views were obtained. There are moderate degenerative changes of the joints in the. There is no joint effusion seen. No evidence of acute fracture or dislocation. XR FEMUR LT CLINICAL HISTORY: s/p fall, r/o fx TECHNIQUE: COMPARISON: CR XR FEMUR LT from 08/06/2019 CR XR PELVIS AP from 03/06/2021 CR XR PELVIS AP from 03/06/2021 FINDINGS: Four views of the femur and an AP view of the pelvis were obtained. There is a total hip joint replacement in position on the left. The components appear well seated. There is no evidence of a femoral or pelvic fracture. XR LUMBAR SPINE COMPLETE CLINICAL HISTORY: s/p fall, r/o acute fx TECHNIQUE: COMPARISON: CR LUMBAR SPINE COMPLETE from 11/14/[address] CHEST PE ABD PELVIS W from 09/30/[address] CHEST PE ABD PELVIS W from 09/30/2019 FINDINGS: Six views were obtained. There are very prominent hypertrophic degenerative changes of the vertebral endplates and facet joints throughout the lumbar region. There is multilevel loss of disc height consistent with disc degeneration. There is an anterior compression deformity of the L3 vertebral body. This is unchanged from prior abdominal CT of September 2019. Minimal anterior compression deformity of L1 also noted. There is no evidence of acute fracture or other significant acute change on today's examination. IMPRESSION: Old vertebral compression fractures. No evidence of acute fracture. Severe degenerative changes noted. HPI General Mode of arrival: EMS. Date/Time Provider Initiated Documentation: 03/06/21 08:25. Limitations to Documentation: physical limitation. Information obtained by: patient. HPI Narrative: Patient is a 70-year-old female w/ a h/o total left hip replacement with h/o periprosthetic hip fracture in Jul 2019 who presents from the [facility] for left hip and right knee pain status post mechanical fall this morning. Patient states she was walking with her walker towards her wheelchair when her right knee gave out and she fell to the ground. She states she hit her left hip and right knee on the ground. She is also complaining of some right ankle pain. She denies any head injury, headache, vomiting, chest pain, shortness of breath, neck pain or abdominal pain. Tetanus up to date. Related Data Home Medications Medication Instructions Recorded Confirmed insulin syringe needleless 1 mL #120 syringe 04/10/18 02/26/20 pen needle, diabetic 30 gauge x #300 ndl 04/10/18 02/26/2011/23 blood-glucose meter #1 each 11/14/18 02/26/20 blood sugar diagnostic #400 each 11/29/18 02/26/20 lancets 28 gauge #400 ea 11/29/18 02/26/20 atorvastatin 40 mg tablet 40 mg PO DAILY #90 tab-cap 02/20/19 03/06/21 Humulin R Regular U-100 Insuln See Rx Instructions .ROUTE 08/26/20 03/06/21 .COMPLEX MDD 75 acetaminophen [Tylenol] 650 mg PO BID PRN 08/26/20 03/06/21 calcium carbonate-vitamin D3 1 tab PO BID 08/26/20 03/06/21 [Calcium 600 + D(3)] ropinirole 2 mg PO .NOON 08/26/20 03/06/21 Eliquis 2.5 mg PO BID 10/07/20 03/06/21 benzonatate 100 mg PO TID PRN 10/07/20 03/06/21 Lactobacillus acidophilus 1 cap PO DAILY 03/06/21 03/06/21 [Acidophilus] Lantus Solostar U-100 Insulin 40 unit SUBCUT HS 03/06/21 03/06/21 Lantus Solostar U-100 Insulin 55 unit SUBCUT QAM 03/06/21 03/06/21 Spiriva with HandiHaler 1 cap INHALATION DAILY 03/06/21 03/06/21 acetaminophen 650 mg PO BID 03/06/21 03/06/21 albuterol sulfate 2 puff INHALATION Q6H PRN PRN 03/06/21 03/06/21 bisacodyl [Dulcolax (bisacodyl)] 10 mg MI PRN PRN 03/06/21 03/06/21 budesonide-formoterol 2 puff INHALATION BID 03/06/21 03/06/21 fluoxetine 10 mg PO DAILY 03/06/21 03/06/21 fluticasone propionate [Flonase 2 spray INTRANASAL BID 03/06/21 03/06/21 Allergy Relief] guaifenesin [Tussin] 200 mg PO QID 03/06/21 03/06/21 insulin lispro [Humalog U-100 12 unit SUBCUT BID 03/06/21 03/06/21 Insulin] loperamide See Rx Instructions .ROUTE .COMPLEX 03/06/21 03/06/21 metoprolol succinate 50 mg PO DAILY 03/06/21 03/06/21 mupirocin 1 applic TOPICAL BID 03/06/21 03/06/21 ropinirole 3 mg PO HS 03/06/21 03/06/21 torsemide 60 mg PO BID 03/06/21 03/06/21 Previous Rx's Medication Instructions Recorded insulin syringe needleless 1 mL #120 syringe 04/10/18 pen needle, diabetic 30 gauge x #300 ndl 04/10/1811/23 blood-glucose meter #1 each 11/14/18 blood sugar diagnostic #400 each 11/29/18 lancets 28 gauge #400 ea 11/29/18 atorvastatin 40 mg tablet 40 mg PO DAILY #90 tab-cap 02/20/19 Allergies Allergy/AdvReac Type Severity Reaction Status Date / Time No Known Allergies Allergy Verified 03/06/21 08:26 General JOLEEN: 2 Review of Systems All systems reviewed & are unremarkable except as noted in HPI and below Constitutional Constitutional: Reports as per HPI, Denies chills and Denies fever(s) Eyes Eyes: Denies blurry vision ENT Ears, Nose, Mouth, and Throat: Denies dizziness, Denies sore throat and Denies throat swelling Cardiovascular Cardiovascular: Denies chest pain and Denies dyspnea Respiratory Respiratory: Denies cough and Denies dyspnea Gastrointestinal Gastrointestinal: Denies abdominal pain, Denies diarrhea and Denies vomiting Genitourinary Genitourinary: Denies hematuria and Denies dysuria Musculoskeletal Musculoskeletal: Denies back pain and Denies numbness Integumentary/Breasts Skin/Breast: Denies lesions and Denies rash Neurologic Neurologic: Denies dizziness, Denies localized weakness and Denies numbness Allergic/Immunologic Allergic/Immunologic: Denies throat swelling [facility] Medical History (Updated 03/06/21 @ 10:10 by Carlita Hale DO) Amputated toe GANGRENOUS 2ND AND 3RD RIGHT TOES 11/14/17 Amputated toe of right foot Arthritis Atrial fibrillation Atrial fibrillation (04/13/17) Bilateral lower leg cellulitis (05/29/14) a. right worse than left Cataract mild; Fine Drusen in macula-OD S/P SURGERY Cellulitis of leg (10/31/14) Depression Depressive disorder Displaced bimalleolar fracture of right ankle (05/29/14) DJD of shoulder a. 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 Left ankle 2012 Hearing loss Hearing loss BILATERAL AIDS difficulties w/ the hearing aids History of tobacco use a. 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 DJD; Left knee-mild DJD; Left-severe DJD; Right-hip mild DJD Otosclerosis (10/14/14) Polycythemia (03/08/17) Pulmonary hypertension (04/13/17) Pulmonary hypertension due to sleep-disordered breathing Restless legs syndrome Sciatica right; xray from 02/10 showed scattered spondylosis ant L4-5 on the left and mid lumbar scoliosis convex to the right Sensorineural hearing loss, bilateral (05/24/17) Sleep apnea with use of continuous positive airway pressure (CPAP) Toe gangrene Transient ischemic attack Type 2 diabetes mellitus with diabetic neuropathy (05/13/15) [place] [facility] [place] stasis Vitamin D deficiency (05/07/15) Surgical History Amputation RIGHT SECOND AND THIRD TOES DUE TO DIABETIC ULCERS WITH CELLULITIS;11/14/17 DR. MAI Colonoscopy - MAC (~2003) Extraction of cataract 04/15/17 DR. ARRIETA; LEFT EYE 04/29/17 DR. ARRIETA; RIGHT EYE PROCEDURES REPAIR OF INTESTINE NEC puncture during colonoscopy ACHILLOTENOTOMY L Achilles tendon repair Family History Mother Neoplasm LUNG Father Heart disease Brother Heart disease Sister No problems noted. Grandfather Heart disease Grandfather Heart disease Grandmother Diabetes Grandmother Diabetes Sister No problems noted. Sister No problems noted. Sister Diabetes Sister No problems noted. Brother No problems noted. Brother No problems noted. Social History Smoking/Tobacco Use Status: Former Tobacco Use Smoking risk assessment performed?: Yes Alcohol Intake: never Drug use: Never Substance use type: does not use Current gender identity: female Do you feel safe at home: Yes Do you feel safe in your relationship?: Yes Exam Const General: cooperative and no acute distress [facility] Head: normal to inspection Face and sinus: normal facial exam Eyes General: appearance normal, both eyes and all related structures EOM: EOM intact bilaterally Neck Neck: normal visual inspection and No submandibular swelling Lymphatic: no lymphadenopathy noted Chest Chest: normal inspection of the chest and no tenderness Resp Effort & Inspection: normal respiratory effort and able to speak in complete sentences Auscultation: clear to auscultation bilaterally Cardio Rate: regular rate Rhythm: regular rhythm GI Inspection: normal to inspection Palpation: soft, not firm, not rigid and nontender Auscultation: normal bowel sounds Back/Spine/Pelvis Thoracic/Lumbar Spine: thoracic and lumbar spine normal to inspection, No thoracic spinal tenderness and lumbar spinal tenderness Skin General skin exam: no rashes or lesions noted Neuro General: patient alert, patient awake and patient oriented x3 Cognition: normal cognition Speech: speech normal Motor: muscle tone normal throughout Sensory Exam: no sensory deficits noted Extrem General: capillary refill normal, no calf tenderness bilaterally and no edema Other: Pain in left hip with range of motion. There is no obvious left lower extremity shortening or external rotation. 1.5 x 2 cm superficial abrasion to the right anterior knee. There is pain with range of motion but no obvious deformity, ecchymosis, edema, ligamentous laxity. Tenderness to palpation to the right lateral malleolus without obvious deformity, ecchymosis. No tenderness to palpation to right fifth metatarsal. There is chronic appearing skin changes with rubor and induration of skin to the bilateral distal lower extremities. Faintly palpable bilateral PT/DP pulses. No pain in right hip, left knee or left ankle or foot with range of motion or palpation. No pain with range of motion or evidence of trauma in bilateral upper extremities. Psych Appearance: grossly normal Mental Status: mental status grossly normal Speech and Movement: speech and movement normal Affect: normal affect
--- NOTE | 2021-03-06 08:30 | DI.RAD_ITS ---
Exam(s) XR PELVIS AP XR FEMUR LT EXAM: XR FEMUR LT CLINICAL HISTORY: s/p fall, r/o fx TECHNIQUE: COMPARISON: CR XR FEMUR LT from 08/06/2019 CR XR PELVIS AP from 03/06/2021 CR XR PELVIS AP from 03/06/2021 FINDINGS: Four views of the femur and an AP view of the pelvis were obtained. There is a total hip joint repla cement in position on the left. The components appear well seated. There is no evidence of a femora l or pelvic fracture. IMPRESSION: RADIATION DOSE DELIVERED: Total DLP
--- NOTE | 2021-03-06 08:30 | DI.RAD_ITS ---
Exam(s) XR ANKLE RT COMPLETE EXAM: XR ANKLE RT COMPLETE CLINICAL HISTORY: s/p fall, r/o fx TECHNIQUE: COMPARISON: CR XR ANKLE LT COMPLETE from 05/23/2019 FINDINGS: Three views were obtained. There are fixation screws in the medial and lateral malleoli. There are severe degenerative changes of the joints of the ankle and midfoot. There is no evidence of acute fr acture or dislocation. IMPRESSION: RADIATION DOSE DELIVERED: Total DLP
--- NOTE | 2021-03-06 08:30 | DI.RAD_ITS ---
Exam(s) XR LUMBAR SPINE COMPLETE EXAM: XR LUMBAR SPINE COMPLETE CLINICAL HISTORY: s/p fall, r/o acute fx TECHNIQUE: COMPARISON: CR LUMBAR SPINE COMPLETE from 11/14/[address] CHEST PE ABD PELVIS W from 09/30/[address] CHEST PE ABD PELVIS W from 09/30/2019 FINDINGS: Six views were obtained. There are very prominent hypertrophic degenerative changes of the vertebral endplates and facet joints throughout the lumbar region. There is multilevel loss of disc height co nsistent with disc degeneration. There is an anterior compression deformity of the L3 vertebral body. This is unchanged from prior ab dominal CT of September 2019. Minimal anterior compression deformity of L1 also noted. There is no evid ence of acute fracture or other significant acute change on today's examination. IMPRESSION: Old vertebral compression fractures. No evidence of acute fracture. Severe degenerative changes not ed. RADIATION DOSE DELIVERED: Total DLP
--- NOTE | 2021-03-06 08:30 | DI.RAD_ITS ---
Exam(s) XR KNEE RT 4V AP,LAT,SAIDA,PAT EXAM: XR KNEE RT 4V AP,LAT,SAIDA,PAT CLINICAL HISTORY: s/p fall, r/o fx TECHNIQUE: COMPARISON: CR RIGHT KNEE 3 VIEWS from 06/26/2012 FINDINGS: Four views were obtained. There are moderate degenerative changes of the joints in the. There is no joint effusion seen. No evidence of acute fracture or dislocation. IMPRESSION: RADIATION DOSE DELIVERED: Total DLP
[2021-03-06] MEDS: Acetaminophen 325 MG TAB 650 MG PO (08:38)
[2021-03-06 09:36] VITALS: BP 126/85; PULSE 83; RESP 16; TEMP 36.3; O2SAT 96
[2021-03-06] MEDS: traMADol 50 MG TAB PO (09:43)
[2021-03-06 10:38] VITALS: BP 135/84; PULSE 72; RESP 16; TEMP 36.4; O2SAT 97
== END 2021-03-06 11:16 | disposition home or self-care (01) ==
PROVIDERS: Emergency Provider Physician Assistant; PCP Family Medicine
DX: S70.02XA Contusion of left hip, initial encounter (principal); S80.211A Abrasion, right knee, initial encounter; M54.5 Low back pain; W18.39XA Other fall on same level, initial encounter; M25.571 Pain in right ankle and joints of right foot; Z79.01 Long term (current) use of anticoagulants; Z96.642 Presence of left artificial hip joint
CPT/HCPCS: 73552; 99284; 72110; 72170; 73564; 73610; 99283

== ENCOUNTER 2021-03-17 17:25 | Outpatient (REF) | payer MEDICARE, BC, MEDICAID, SELFPAY ==
[2021-03-17 18:59] LABS: ALT 29 U/L (14-59); AST 24 U/L (15-37); Albumin 3.6 g/dL (3.4-5.0); Alkaline Phosphatase 128 U/L (46-116); BUN 31 mg/dL (7-18); Bilirubin, Total 1.1 mg/dL (0.2-1.0); CREATININE 1.4 mg/dL (0.55-1.02); Calcium 8.9 mg/dL (8.5-10.1); Chloride 94 mmol/L (98-107); Estimated GFR 37.39 (mL/min/1.73m2); Glucose 250 mg/dL (74-106); Potassium 3.5 mmol/L (3.5-5.1); Sodium 127 mmol/L (136-145); Total Protein 7.2 g/dL (6.4-8.2); Vitamin B12 951 pg/mL (193-986)
[2021-03-19 01:36] LABS: Vitamin D 25 Total 23.7 ng/mL (30-100)
== END 2021-03-17 17:26 | disposition home or self-care (01) ==
LOC: LBN 17:25
PROVIDERS: PCP Family Medicine; Visit Provider Nurse Practitioner Gerontology
DX: I50.32 Chronic diastolic (congestive) heart failure (principal); I27.21 Secondary pulmonary arterial hypertension; E55.9 Vitamin D deficiency, unspecified; Z79.899 Other long term (current) drug therapy
CPT/HCPCS: 80053; 82306; 82607

== ENCOUNTER 2021-05-13 13:33 | Outpatient (REF) | payer MEDICARE, BC, MEDICAID, SELFPAY ==
[2021-05-13 15:49] LABS: Anion Gap 11.4 mmol/L (3-11); BUN 30 mg/dL (7-18); CO2 26.6 mmol/L (21.0-32.0); CREATININE 1.3 mg/dL (0.55-1.02); Calcium 8.9 mg/dL (8.5-10.1); Chloride 100 mmol/L (98-107); Estimated GFR 40.73 (mL/min/1.73m2); Glucose 273 mg/dL (74-106); Sodium 138 mmol/L (136-145)
[2021-05-13 15:50] LABS: Hemoglobin A1C 7.6 % (<5.7)
== END 2021-05-13 13:34 | disposition home or self-care (01) ==
LOC: LBN 13:33
PROVIDERS: PCP Family Medicine; Visit Provider Nurse Practitioner Gerontology
DX: E11.40 Type 2 diabetes mellitus with diabetic neuropathy, unspecified (principal); E66.9 Obesity, unspecified; I20.9 Angina pectoris, unspecified
CPT/HCPCS: 80048; 83036; 83735

== ENCOUNTER 2021-06-29 19:22 | Outpatient (REF) | payer MEDICARE, BC, MEDICAID, SELFPAY ==
[2021-06-29 19:42] LABS: Abs Immature Grans 0.05 10^3/uL (0.0-0.06); Absolute Monocyte Count 0.81 10^3/uL (0.1-0.8); Absolute Neutrophil Count 6.05 10^3/uL (1.2-6.7); HCT 42.5 % (36.0-46.0); HGB 13.5 g/dL (11.2-15.7); Immature Grans % 0.5; MCH 30.5 pg (27.0-33.0); MCHC 31.8 % (32.0-36.0); MCV 95.9 fL (80-95); MPV 11.3 fL (8.0-11.0); Monocytes % 8.1; Neutrophils % 60.4; Nucleated RBC 0 %; Platelet Count 230 10^3/uL (130-400); RBC 4.43 10^6/uL (3.93-5.22); RDW 13.8 % (11.7-14.6); WBC 10.01 10^3/uL (4.4-10.8)
[2021-06-29 20:03] LABS: ALT 33 U/L (14-59); AST 26 U/L (15-37); Albumin 3.6 g/dL (3.4-5.0); Alkaline Phosphatase 131 U/L (46-116); Anion Gap 8.6 mmol/L (3-11); BUN 30 mg/dL (7-18); Bilirubin, Total 1.1 mg/dL (0.2-1.0); CO2 28.4 mmol/L (21.0-32.0); CREATININE 1.3 mg/dL (0.55-1.02); Calcium 9.3 mg/dL (8.5-10.1); Chloride 99 mmol/L (98-107); Estimated GFR 40.73 (mL/min/1.73m2); Glucose 261 mg/dL (74-106); Potassium 3.6 mmol/L (3.5-5.1); Sodium 136 mmol/L (136-145); Total Protein 7.1 g/dL (6.4-8.2)
== END 2021-06-29 19:23 | disposition home or self-care (01) ==
LOC: LBN 19:22
PROVIDERS: PCP Family Medicine; Visit Provider Nurse Practitioner Gerontology
DX: I50.32 Chronic diastolic (congestive) heart failure (principal); K58.0 Irritable bowel syndrome with diarrhea; E11.65 Type 2 diabetes mellitus with hyperglycemia; L03.116 Cellulitis of left lower limb
CPT/HCPCS: 80053; 85025

== ENCOUNTER 2021-07-08 22:34 | Outpatient (REF) | payer MEDICARE, BC, MEDICAID, SELFPAY ==
[2021-07-08 21:42] LABS: Anion Gap 9.4 mmol/L (3-11); BUN 27 mg/dL (7-18); CO2 30.6 mmol/L (21.0-32.0); CREATININE 1.3 mg/dL (0.55-1.02); Calcium 9.2 mg/dL (8.5-10.1); Chloride 97 mmol/L (98-107); Estimated GFR 40.73 (mL/min/1.73m2); Glucose 283 mg/dL (74-106); Potassium 3.6 mmol/L (3.5-5.1); Sodium 137 mmol/L (136-145)
== END 2021-07-08 22:35 | disposition home or self-care (01) ==
LOC: LBN 22:34
PROVIDERS: PCP Family Medicine; Visit Provider Internal Medicine
DX: E11.65 Type 2 diabetes mellitus with hyperglycemia (principal); I27.21 Secondary pulmonary arterial hypertension
CPT/HCPCS: 80048

== ENCOUNTER 2021-07-13 15:12 | Outpatient (REF) | payer MEDICARE, BC, MEDICAID, SELFPAY ==
[2021-07-13 16:06] LABS: ALT 29 U/L (14-59); AST 27 U/L (15-37); Albumin 3.7 g/dL (3.4-5.0); Alkaline Phosphatase 131 U/L (46-116); Anion Gap 10.9 mmol/L (3-11); BUN 26 mg/dL (7-18); Bilirubin, Total 1.1 mg/dL (0.2-1.0); CO2 28.1 mmol/L (21.0-32.0); CREATININE 1.3 mg/dL (0.55-1.02); Calcium 8.7 mg/dL (8.5-10.1); Chloride 100 mmol/L (98-107); Estimated GFR 40.73 (mL/min/1.73m2); Glucose 216 mg/dL (74-106); Potassium 3.7 mmol/L (3.5-5.1); Sodium 139 mmol/L (136-145); Total Protein 7.6 g/dL (6.4-8.2)
== END 2021-07-13 15:13 | disposition home or self-care (01) ==
LOC: LBN 15:12
PROVIDERS: PCP Family Medicine; Visit Provider Nurse Practitioner Gerontology
DX: E11.65 Type 2 diabetes mellitus with hyperglycemia (principal); I87.2 Venous insufficiency (chronic) (peripheral)
CPT/HCPCS: 80053

== ENCOUNTER 2021-07-14 09:14 | Outpatient (REF) | payer MEDICARE, BC, MEDICAID, SELFPAY ==
[2021-07-14 10:58] LABS: Abs Immature Grans 0.03 10^3/uL (0.0-0.06); Absolute Basophil Count 0.06 10^3/uL (0.0-0.2); Absolute Eosinophil Count 0.61 10^3/uL (0.0-0.7); Absolute Monocyte Count 0.57 10^3/uL (0.1-0.8); Absolute Neutrophil Count 4.79 10^3/uL (1.2-6.7); Basophils % 0.7; Eosinophils % 7.5; HCT 44.6 % (36.0-46.0); HGB 14.3 g/dL (11.2-15.7); Immature Grans % 0.4; Lymphocytes % 25.7; MCHC 32.1 % (32.0-36.0); MCV 93.5 fL (80-95); MPV 11.3 fL (8.0-11.0); Neutrophils % 58.7; Nucleated RBC 0 %; Platelet Count 220 10^3/uL (130-400); RBC 4.77 10^6/uL (3.93-5.22); RDW 13.7 % (11.7-14.6); RDW-SD 47.2 fL; WBC 8.16 10^3/uL (4.4-10.8)
[2021-07-14 11:04] LABS: C-Reactive Protein 0.63 mg/dL (0.0-0.3)
== END 2021-07-14 09:15 | disposition home or self-care (01) ==
LOC: LBN 09:14
PROVIDERS: PCP Family Medicine; Visit Provider Nurse Practitioner Gerontology
DX: L03.116 Cellulitis of left lower limb (principal); E11.65 Type 2 diabetes mellitus with hyperglycemia; I87.2 Venous insufficiency (chronic) (peripheral)
CPT/HCPCS: 85025; 86140

== ENCOUNTER 2021-09-03 18:06 | Outpatient (REF) | payer MEDICARE, BC, MEDICAID, SELFPAY ==
[2021-09-03 15:14] LABS: Bilirubin Negative (Negative); Blood Large (Negative); Clarity Cloudy (Clear); Glucose 500 mg/dL (Negative); Ketones Negative (Negative); Leukocyte Esterase Small (Negative); Nitrite Negative (Negative); Urobilinogen 0.2 EU/dL (Up TO 0.2)
[2021-09-03 15:26] LABS: Bacteria Few HPF (Negative); C & S Indicated? C&S Done As Ordered; Casts Negative LPF (Negative); Crystals Negative HPF (Negative); Epithelial Cells Negative HPF (Negative); Mucus Negative (Negative); RBC >50 HPF (0-2); WBC >50 HPF (0-5)
== END 2021-09-03 18:07 | disposition home or self-care (01) ==
LOC: LBN 18:06
PROVIDERS: PCP Family Medicine; Visit Provider Nurse Practitioner Gerontology
DX: R30.0 Dysuria (principal); R31.9 Hematuria, unspecified
CPT/HCPCS: 87077; 81003; 81015; 87086; 87186

== ENCOUNTER 2021-09-15 13:09 | Outpatient (REF) | payer MEDICARE, BC, MEDICAID, SELFPAY ==
[2021-09-15 14:38] LABS: Hemoglobin A1C 9.4 % (<5.7); Iron 47 ug/dL (50-170); Total Iron Binding Capacity 291 ug/dL (250-450); Transferrin Sat 16 % (15-50)
[2021-09-15 15:12] LABS: BUN 30 mg/dL (7-18); CREATININE 1.2 mg/dL (0.55-1.02); Calcium 9.4 mg/dL (8.5-10.1); Chloride 96 mmol/L (98-107); Estimated GFR 44.54 (mL/min/1.73m2); Folate 7.4 ng/mL (8.6-20.0); Glucose 272 mg/dL (74-106); Sodium 136 mmol/L (136-145); TSH (W/Ref FT4) 3.39 uIU/mL (0.36-3.74); Vitamin B12 831 pg/mL (193-986)
== END 2021-09-15 13:10 | disposition home or self-care (01) ==
LOC: LBN 13:09
PROVIDERS: PCP Family Medicine; Visit Provider Nurse Practitioner Gerontology
DX: E11.65 Type 2 diabetes mellitus with hyperglycemia (principal); E03.8 Other specified hypothyroidism; D52.9 Folate deficiency anemia, unspecified; E53.9 Vitamin B deficiency, unspecified; I50.32 Chronic diastolic (congestive) heart failure
CPT/HCPCS: 80048; 82607; 82746; 83036; 83540; 83550; 84443

== ENCOUNTER 2021-11-17 22:02 | Outpatient (REF) | payer MEDICARE, BC, MEDICAID, SELFPAY ==
[2021-11-17 18:59] LABS: Abs Immature Grans 0.06 10^3/uL (0.0-0.06); Absolute Basophil Count 0.11 10^3/uL (0.0-0.2); Absolute Eosinophil Count 0.12 10^3/uL (0.0-0.7); Absolute Lymphocyte Count 2.86 10^3/uL (1.2-3.4); Absolute Monocyte Count 0.86 10^3/uL (0.1-0.8); Absolute Neutrophil Count 8.11 10^3/uL (1.2-6.7); Basophils % 0.9; HCT 45.2 % (36.0-46.0); HGB 14.4 g/dL (11.2-15.7); Immature Grans % 0.5; Lymphocytes % 23.6; MCH 30.3 pg (27.0-33.0); MCHC 31.9 % (32.0-36.0); MCV 95 fL (80-95); MPV 12.1 fL (8.0-11.0); Monocytes % 7.1; Neutrophils % 66.9; Platelet Count 271 10^3/uL (130-400); RBC 4.76 10^6/uL (3.93-5.22); RDW 14.1 % (11.7-14.6); RDW-SD 48.8 fL; WBC 12.12 10^3/uL (4.4-10.8)
[2021-11-17 20:01] LABS: Anion Gap 6.7 mmol/L (3-11); BUN 43 mg/dL (7-18); CO2 34.3 mmol/L (21.0-32.0); CREATININE 1.2 mg/dL (0.55-1.02); Calcium 9.2 mg/dL (8.5-10.1); Chloride 95 mmol/L (98-107); Estimated GFR 44.54 (mL/min/1.73m2); Glucose 161 mg/dL (74-106); Potassium 3.2 mmol/L (3.5-5.1); Sodium 136 mmol/L (136-145)
[2021-11-18 04:08] LABS: NT-proBNP 856 pg/mL (<300)
== END 2021-11-17 22:03 | disposition home or self-care (01) ==
LOC: LBN 22:02
PROVIDERS: PCP Family Medicine; Visit Provider Nurse Practitioner Gerontology
DX: I50.32 Chronic diastolic (congestive) heart failure (principal); R05.8 Other specified cough; J44.9 Chronic obstructive pulmonary disease, unspecified; I25.10 Atherosclerotic heart disease of native coronary artery without angina pectoris
CPT/HCPCS: 80048; 83880; 85025

== ENCOUNTER 2021-11-19 14:31 | Outpatient (REF) | payer MEDICARE, BC, MEDICAID, SELFPAY ==
[2021-11-20 09:16] LABS: Abs Immature Grans 0.09 10^3/uL (0.0-0.06); Absolute Basophil Count 0.08 10^3/uL (0.0-0.2); Absolute Eosinophil Count 0.01 10^3/uL (0.0-0.7); Absolute Monocyte Count 0.41 10^3/uL (0.1-0.8); Basophils % 0.6; Eosinophils % 0.1; HCT 43.8 % (36.0-46.0); HGB 14.5 g/dL (11.2-15.7); Immature Grans % 0.7; Lymphocytes % 9.4; MCH 30.9 pg (27.0-33.0); MCHC 33.1 % (32.0-36.0); MCV 93 fL (80-95); MPV 11.8 fL (8.0-11.0); Monocytes % 3.1; Neutrophils % 86.1; Platelet Count 218 10^3/uL (130-400); RDW 13.9 % (11.7-14.6); RDW-SD 47.6 fL; WBC 13.26 10^3/uL (4.4-10.8)
[2021-11-20 09:17] LABS: Absolute Lymphocyte Count 1.25 10^3/uL (1.2-3.4); Absolute Neutrophil Count 11.42 10^3/uL (1.2-6.7)
[2021-11-20 09:52] LABS: BUN 41 mg/dL (7-18); CREATININE 1.4 mg/dL (0.55-1.02); Calcium 8.9 mg/dL (8.5-10.1); Chloride 95 mmol/L (98-107); Estimated GFR 37.28 (mL/min/1.73m2); Glucose 335 mg/dL (74-106); Potassium 3.9 mmol/L (3.5-5.1); Sodium 135 mmol/L (136-145)
[2021-11-20 15:02] LABS: NT-proBNP 530 pg/mL (<300)
== END 2021-11-19 14:32 | disposition home or self-care (01) ==
LOC: LBN 14:31
PROVIDERS: PCP Family Medicine; Visit Provider Nurse Practitioner Gerontology
DX: R68.89 Other general symptoms and signs (principal)
CPT/HCPCS: 80048; 83880; 85025

== ENCOUNTER 2021-12-15 20:57 | Outpatient (REF) | payer MEDICARE, BC, MEDICAID, SELFPAY ==
[2021-12-15 17:09] LABS: Abs Immature Grans 0.04 10^3/uL (0.0-0.06); Absolute Basophil Count 0.09 10^3/uL (0.0-0.2); Absolute Lymphocyte Count 2.34 10^3/uL (1.2-3.4); Absolute Monocyte Count 0.57 10^3/uL (0.1-0.8); Basophils % 1.1; Eosinophils % 4.7; HCT 42.3 % (36.0-46.0); HGB 13.7 g/dL (11.2-15.7); Immature Grans % 0.5; Lymphocytes % 27.7; MCH 30.5 pg (27.0-33.0); MCHC 32.4 % (32.0-36.0); MCV 94 fL (80-95); MPV 11.1 fL (8.0-11.0); Monocytes % 6.8; Neutrophils % 59.2; Platelet Count 276 10^3/uL (130-400); RBC 4.49 10^6/uL (3.93-5.22); RDW 14.5 % (11.7-14.6); RDW-SD 49.7 fL; WBC 8.44 10^3/uL (4.4-10.8)
[2021-12-15 17:23] LABS: Hemoglobin A1C 8.7 % (<5.7)
[2021-12-15 17:27] LABS: Anion Gap 10.2 mmol/L (3-11); BUN 32 mg/dL (7-18); CO2 28.8 mmol/L (21.0-32.0); CREATININE 1.3 mg/dL (0.55-1.02); Calcium 9.2 mg/dL (8.5-10.1); Chloride 97 mmol/L (98-107); Estimated GFR 40.61 (mL/min/1.73m2); Glucose 245 mg/dL (74-106); Magnesium 2.1 mg/dL (1.8-2.4); Potassium 3.6 mmol/L (3.5-5.1); Sodium 136 mmol/L (136-145); TSH (W/Ref FT4) 5.19 uIU/mL (0.36-3.74)
[2021-12-15 18:00] LABS: FREE T4 1.23 ng/dL (0.76-1.46)
== END 2021-12-15 20:58 | disposition home or self-care (01) ==
LOC: LBN 20:57
PROVIDERS: PCP Family Medicine; Visit Provider Nurse Practitioner Gerontology
DX: E11.65 Type 2 diabetes mellitus with hyperglycemia (principal); I50.32 Chronic diastolic (congestive) heart failure; E03.8 Other specified hypothyroidism; I48.91 Unspecified atrial fibrillation; R53.1 Weakness; J44.9 Chronic obstructive pulmonary disease, unspecified
CPT/HCPCS: 80048; 83036; 83735; 84439; 84443; 85025

== ENCOUNTER 2022-02-16 18:10 | Outpatient (REF) | payer MEDICARE, BC, MEDICAID, SELFPAY ==
[2022-02-16 19:56] LABS: Abs Immature Grans 0.04 10^3/uL (0.0-0.06); Absolute Basophil Count 0.08 10^3/uL (0.0-0.2); Absolute Eosinophil Count 0.26 10^3/uL (0.0-0.7); Absolute Lymphocyte Count 2.13 10^3/uL (1.2-3.4); Absolute Monocyte Count 0.75 10^3/uL (0.1-0.8); Absolute Neutrophil Count 7.08 10^3/uL (1.2-6.7); Basophils % 0.8; Eosinophils % 2.5; HCT 44.8 % (36.0-46.0); Immature Grans % 0.4; Lymphocytes % 20.6; MCH 31.5 pg (27.0-33.0); MCHC 33.5 % (32.0-36.0); MCV 94 fL (80-95); Monocytes % 7.3; Neutrophils % 68.4; Platelet Count 245 10^3/uL (130-400); RBC 4.76 10^6/uL (3.93-5.22); RDW 14.1 % (11.7-14.6); RDW-SD 48.8 fL; WBC 10.34 10^3/uL (4.4-10.8)
[2022-02-16 20:15] LABS: Hemoglobin A1C 8.6 % (<5.7)
[2022-02-16 20:16] LABS: ALT 32 U/L (14-59); AST 42 U/L (15-37); Albumin 3.7 g/dL (3.4-5.0); Alkaline Phosphatase 144 U/L (46-116); Anion Gap 10.5 mmol/L (3-11); BUN 31 mg/dL (7-18); Bilirubin, Total 0.8 mg/dL (0.2-1.0); CO2 30.5 mmol/L (21.0-32.0); CREATININE 1.2 mg/dL (0.55-1.02); Chloride 97 mmol/L (98-107); Estimated GFR 44.54 (mL/min/1.73m2); Glucose 256 mg/dL (74-106); Potassium 4.3 mmol/L (3.5-5.1); Sodium 138 mmol/L (136-145); TSH (W/Ref FT4) 3.57 uIU/mL (0.36-3.74); Total Protein 7.5 g/dL (6.4-8.2)
== END 2022-02-16 18:11 | disposition home or self-care (01) ==
LOC: LBN 18:10
PROVIDERS: PCP Family Medicine; Visit Provider Nurse Practitioner Gerontology
DX: E11.65 Type 2 diabetes mellitus with hyperglycemia (principal); E03.8 Other specified hypothyroidism
CPT/HCPCS: 80053; 83036; 84443; 85025

== ENCOUNTER 2022-03-17 19:44 | Outpatient (REF) | payer MEDICARE, BC, MEDICAID, SELFPAY ==
[2022-03-17 22:35] LABS: Abs Immature Grans 0.07 10^3/uL (0.0-0.06); Absolute Basophil Count 0.05 10^3/uL (0.0-0.2); Absolute Eosinophil Count 0.01 10^3/uL (0.0-0.7); Absolute Lymphocyte Count 1.39 10^3/uL (1.2-3.4); Absolute Monocyte Count 0.31 10^3/uL (0.1-0.8); Basophils % 0.4; Eosinophils % 0.1; HCT 45.8 % (36.0-46.0); HGB 14.9 g/dL (11.2-15.7); Immature Grans % 0.5; Lymphocytes % 10.9; MCH 30.6 pg (27.0-33.0); MCHC 32.5 % (32.0-36.0); MCV 94 fL (80-95); MPV 11.9 fL (8.0-11.0); Monocytes % 2.4; Neutrophils % 85.7; Platelet Count 283 10^3/uL (130-400); RBC 4.87 10^6/uL (3.93-5.22); RDW 14.1 % (11.7-14.6); RDW-SD 48.8 fL; WBC 12.73 10^3/uL (4.4-10.8)
[2022-03-17 22:37] LABS: Absolute Neutrophil Count 10.91 10^3/uL (1.2-6.7)
[2022-03-17 22:58] LABS: ALT 46 U/L (14-59); AST 41 U/L (15-37); Albumin 3.9 g/dL (3.4-5.0); Alkaline Phosphatase 141 U/L (46-116); Anion Gap 7.6 mmol/L (3-11); BUN 44 mg/dL (7-18); Bilirubin, Total 0.9 mg/dL (0.2-1.0); CO2 32.4 mmol/L (21.0-32.0); CREATININE 1.6 mg/dL (0.55-1.02); Calcium 10.1 mg/dL (8.5-10.1); Chloride 94 mmol/L (98-107); Glucose 336 mg/dL (74-106); NT-proBNP 1202 pg/mL (<300); Potassium 4.8 mmol/L (3.5-5.1); Sodium 134 mmol/L (136-145); Total Protein 8.2 g/dL (6.4-8.2)
== END 2022-03-17 19:45 | disposition home or self-care (01) ==
LOC: LBN 19:44
PROVIDERS: PCP Family Medicine; Visit Provider Nurse Practitioner Gerontology
DX: I50.32 Chronic diastolic (congestive) heart failure (principal); E11.65 Type 2 diabetes mellitus with hyperglycemia
CPT/HCPCS: 80053; 83880; 85025

== ENCOUNTER 2022-03-23 17:30 | Outpatient (REF) | payer MEDICARE, MEDICAID, SELFPAY ==
[2022-03-23 17:52] LABS: Abs Immature Grans 0.05 10^3/uL (0.0-0.06); Absolute Basophil Count 0.08 10^3/uL (0.0-0.2); Absolute Eosinophil Count 0.02 10^3/uL (0.0-0.7); Absolute Lymphocyte Count 1.76 10^3/uL (1.2-3.4); Absolute Monocyte Count 0.49 10^3/uL (0.1-0.8); Absolute Neutrophil Count 7.72 10^3/uL (1.2-6.7); Basophils % 0.8; Eosinophils % 0.2; HCT 50.1 % (36.0-46.0); HGB 16.4 g/dL (11.2-15.7); Immature Grans % 0.5; Lymphocytes % 17.4; MCH 30.8 pg (27.0-33.0); MCHC 32.7 % (32.0-36.0); MCV 94 fL (80-95); MPV 11.1 fL (8.0-11.0); Monocytes % 4.8; Neutrophils % 76.3; Platelet Count 256 10^3/uL (130-400); RBC 5.32 10^6/uL (3.93-5.22); RDW 14.2 % (11.7-14.6); RDW-SD 48.9 fL; WBC 10.12 10^3/uL (4.4-10.8)
[2022-03-23 18:37] LABS: ALT 55 U/L (14-59); AST 51 U/L (15-37); Alkaline Phosphatase 131 U/L (46-116); Anion Gap 10.4 mmol/L (3-11); BUN 46 mg/dL (7-18); CO2 29.6 mmol/L (21.0-32.0); CREATININE 1.4 mg/dL (0.55-1.02); Calcium 9.6 mg/dL (8.5-10.1); Chloride 98 mmol/L (98-107); Estimated GFR 40.73 (mL/min/1.73m2); Glucose 283 mg/dL (74-106); NT-proBNP 804 pg/mL (<300); Sodium 138 mmol/L (136-145); Total Protein 8.3 g/dL (6.4-8.2)
== END 2022-03-23 17:31 | disposition home or self-care (01) ==
LOC: LBN 17:30
PROVIDERS: PCP Family Medicine; Visit Provider Nurse Practitioner Gerontology
DX: I50.32 Chronic diastolic (congestive) heart failure (principal); E11.65 Type 2 diabetes mellitus with hyperglycemia; I87.2 Venous insufficiency (chronic) (peripheral); J44.9 Chronic obstructive pulmonary disease, unspecified
CPT/HCPCS: 80053; 83880; 85025

== ENCOUNTER → 2022-03-24 00:50 | Outpatient (CLI) | payer MEDICARE, MEDICAID, SELFPAY ==
--- NOTE | 2022-03-24 | DI.RAD_ITS ---
Exam(s) XR CHEST 2V PA LATERAL EXAM: XR CHEST 2V PA LATERAL CLINICAL HISTORY: COUGH. TECHNIQUE: 2D digital imaging was performed. COMPARISON: CR,XR XR PORTABLE CHEST AP from 09/30/2019 CR,XR XR PORTABLE CHEST AP from 10/07/2020 FINDINGS: 2 views: Heart size is minimally prominent. The mediastinum is not widened. There is nodular infiltrate in the left upper lobe, measuring 1.5 x 1.4 cm. Also increased interstit ial markings both lung gaming again noted, possibly related to fibrosis. There are no Kya B lines . No obvious pleural effusions. Heart size minimally prominent. IMPRESSION: There is a 1.5 x 1.4 cm nodular infiltrate in the left upper lobe left suprahilar region. Close foll ow-up to rule out malignancy recommended. Chronic appearing increased interstitial markings in both lung gaming again noted, probably an elemen t of interstitial fibrosis. DATA REPOSITORY: RADIATION DOSE DELIVERED:
== END ==
PROVIDERS: PCP Family Medicine; Visit Provider Nurse Practitioner Gerontology
DX: R05.8 Other specified cough (principal); R91.8 Other nonspecific abnormal finding of lung field; J98.4 Other disorders of lung
CPT/HCPCS: 71046

== ENCOUNTER 2022-03-29 10:08 | Outpatient (REF) | payer MEDICARE, MEDICAID, SELFPAY ==
[2022-03-29 10:56] LABS: Abs Immature Grans 0.04 10^3/uL (0.0-0.06); Absolute Basophil Count 0.07 10^3/uL (0.0-0.2); Absolute Lymphocyte Count 2.11 10^3/uL (1.2-3.4); Absolute Monocyte Count 0.77 10^3/uL (0.1-0.8); Absolute Neutrophil Count 5.78 10^3/uL (1.2-6.7); Basophils % 0.8; Eosinophils % 2.2; HCT 45.9 % (36.0-46.0); HGB 15.1 g/dL (11.2-15.7); Immature Grans % 0.4; Lymphocytes % 23.5; MCH 30.8 pg (27.0-33.0); MCHC 32.9 % (32.0-36.0); MCV 94 fL (80-95); MPV 11.2 fL (8.0-11.0); Monocytes % 8.6; Neutrophils % 64.5; Platelet Count 222 10^3/uL (130-400); RBC 4.91 10^6/uL (3.93-5.22); RDW 14.3 % (11.7-14.6); RDW-SD 49.4 fL; WBC 8.97 10^3/uL (4.4-10.8)
[2022-03-29 11:14] LABS: ALT 40 U/L (14-59); AST 34 U/L (15-37); Albumin 3.7 g/dL (3.4-5.0); Alkaline Phosphatase 118 U/L (46-116); Anion Gap 9.4 mmol/L (3-11); BUN 39 mg/dL (7-18); CO2 31.6 mmol/L (21.0-32.0); CREATININE 1.4 mg/dL (0.55-1.02); Calcium 9.6 mg/dL (8.5-10.1); Chloride 100 mmol/L (98-107); Estimated GFR 40.73 (mL/min/1.73m2); Glucose 264 mg/dL (74-106); NT-proBNP 1519 pg/mL (<300); Potassium 3.6 mmol/L (3.5-5.1); Sodium 141 mmol/L (136-145); Total Protein 7.4 g/dL (6.4-8.2)
== END 2022-03-29 10:09 | disposition home or self-care (01) ==
LOC: LBN 10:08
PROVIDERS: PCP Family Medicine; Visit Provider Nurse Practitioner Gerontology
DX: I50.32 Chronic diastolic (congestive) heart failure (principal); I73.89 Other specified peripheral vascular diseases; E11.65 Type 2 diabetes mellitus with hyperglycemia; I87.2 Venous insufficiency (chronic) (peripheral); I25.10 Atherosclerotic heart disease of native coronary artery without angina pectoris; J44.9 Chronic obstructive pulmonary disease, unspecified
CPT/HCPCS: 80053; 83880; 85025

== ENCOUNTER 2022-04-06 16:38 | Outpatient (REF) | payer MEDICARE, MEDICAID, SELFPAY ==
[2022-04-06 19:58] LABS: Abs Immature Grans 0.03 10^3/uL (0.0-0.06); Absolute Basophil Count 0.07 10^3/uL (0.0-0.2); Absolute Eosinophil Count 0.28 10^3/uL (0.0-0.7); Absolute Lymphocyte Count 2.39 10^3/uL (1.2-3.4); Absolute Monocyte Count 0.83 10^3/uL (0.1-0.8); Absolute Neutrophil Count 6.37 10^3/uL (1.2-6.7); Basophils % 0.7; Eosinophils % 2.8; HGB 14.1 g/dL (11.2-15.7); Immature Grans % 0.3; MCH 30.6 pg (27.0-33.0); MCV 95 fL (80-95); MPV 11.8 fL (8.0-11.0); Monocytes % 8.3; Neutrophils % 63.9; Platelet Count 191 10^3/uL (130-400); RBC 4.61 10^6/uL (3.93-5.22); RDW 14.1 % (11.7-14.6); RDW-SD 49.4 fL; WBC 9.97 10^3/uL (4.4-10.8)
[2022-04-06 21:16] LABS: BUN 34 mg/dL (7-18); CREATININE 1.5 mg/dL (0.55-1.02); Chloride 97 mmol/L (98-107); Estimated GFR 37.49 (mL/min/1.73m2); Glucose 255 mg/dL (74-106); NT-proBNP 1145 pg/mL (<300); Potassium 3.7 mmol/L (3.5-5.1); Sodium 137 mmol/L (136-145)
== END 2022-04-06 16:39 | disposition home or self-care (01) ==
LOC: LBN 16:38
PROVIDERS: PCP Family Medicine; Visit Provider Nurse Practitioner Gerontology
DX: R68.89 Other general symptoms and signs (principal); R05.8 Other specified cough; E11.65 Type 2 diabetes mellitus with hyperglycemia
CPT/HCPCS: 80048; 83880; 85025

== ENCOUNTER 2022-04-13 12:48 | Outpatient (REF) | payer MEDICARE, MEDICAID, SELFPAY ==
[2022-04-13 14:22] LABS: Abs Immature Grans 0.03 10^3/uL (0.0-0.06); Absolute Basophil Count 0.05 10^3/uL (0.0-0.2); Absolute Eosinophil Count 0.22 10^3/uL (0.0-0.7); Absolute Lymphocyte Count 1.94 10^3/uL (1.2-3.4); Absolute Neutrophil Count 6.19 10^3/uL (1.2-6.7); Basophils % 0.5; Eosinophils % 2.4; HCT 42.6 % (36.0-46.0); HGB 13.6 g/dL (11.2-15.7); Immature Grans % 0.3; Lymphocytes % 21.2; MCH 30.3 pg (27.0-33.0); MCHC 31.9 % (32.0-36.0); MCV 95 fL (80-95); MPV 11.2 fL (8.0-11.0); Monocytes % 7.7; Neutrophils % 67.9; Platelet Count 223 10^3/uL (130-400); RBC 4.49 10^6/uL (3.93-5.22); RDW 14.3 % (11.7-14.6); RDW-SD 49.1 fL; WBC 9.13 10^3/uL (4.4-10.8)
[2022-04-13 14:41] LABS: Anion Gap 8.2 mmol/L (3-11); BUN 28 mg/dL (7-18); CO2 30.8 mmol/L (21.0-32.0); CREATININE 1.1 mg/dL (0.55-1.02); Calcium 8.6 mg/dL (8.5-10.1); Chloride 100 mmol/L (98-107); Estimated GFR 54.39 (mL/min/1.73m2); Glucose 197 mg/dL (74-106); Magnesium 1.7 mg/dL (1.8-2.4); NT-proBNP 874 pg/mL (<300); Potassium 3.8 mmol/L (3.5-5.1); Sodium 139 mmol/L (136-145)
[2022-04-13 14:45] LABS: Hemoglobin A1C 8.9 % (<5.7)
== END 2022-04-13 12:49 | disposition home or self-care (01) ==
LOC: LBN 12:48
PROVIDERS: PCP Family Medicine; Visit Provider Nurse Practitioner Gerontology
DX: E11.65 Type 2 diabetes mellitus with hyperglycemia (principal); I50.32 Chronic diastolic (congestive) heart failure; K58.0 Irritable bowel syndrome with diarrhea; G47.33 Obstructive sleep apnea (adult) (pediatric); I48.19 Other persistent atrial fibrillation; I27.21 Secondary pulmonary arterial hypertension
CPT/HCPCS: 80048; 83036; 83735; 83880; 85025

== ENCOUNTER → 2022-04-19 01:22 | Outpatient (CLI) | payer MEDICARE, MEDICAID, SELFPAY ==
--- NOTE | 2022-04-19 | DI.CT_ITS ---
Exam(s) CT CHEST W EXAM: CT CHEST W CLINICAL HISTORY: F/U NODULE TECHNIQUE: Imaging Protocol: Axial computed tomography images with coronal and sagittal reformatted images were created and reviewed CONTRAST MATERIAL: Intravenous: Omnipaque 350 Contrast volume:85 ml. COMPARISON: CT CHEST WITH CONTRAST from 05/20/[address] CHEST PE ABD PELVIS W from 09/30/2019 CR,XR XR PORTABLE CHEST AP from 10/07/2020 CR XR LUMBAR SPINE COMPLETE from 03/06/2021 CR XR CHEST 2V PA LATERAL from 03/24/2022 FINDINGS: The exam is mildly limited by respiratory motion. Tracheobronchial tree: No bronchiectasis or mucous plugging. Mediastinum and Jody: No dominant adenopathy or fluid collection. Pulmonary parenchyma: Fibrotic changes are noted greater in the upper lobes. No consolidation. No do minant measurable mass. There are few scattered calcified granulomata. Pleura: No effusion or pneumothorax. Heart: The left atrium dilated. Also dilatation of the right atrium and left ventricle. moderate cor onary artery calcifications are seen. Aorta: Thoracic aorta non-dilated. Upper abdomen: Multiple there is of abnormally decreased attenuation are noted noted in the visualiz ed portions of the upper liver. Findings could represent primary or metastatic disease are represent irregular multifocal areas of hepatic steatosis. Lymph nodes: Within normal limits. Bones: There is an old appearing fracture deformity of the right side of the T10 vertebral body and p roximal portion of the right 10th rib. Degenerative disc changes. Mild scoliosis. Soft tissues: Unremarkable. IMPRESSION: No evidence of pulmonary nodule. Underlying fibrotic changes are noted. Low-attenuation lesions are noted in the liver. CT of the abdomen and pelvis or MRI of the liver is r ecommended for further evaluation. RADIATION DOSE DELIVERED: 789.5mGy.cm Total DLP DATA REPOSITORY: All CT scans at this facility are submitted to the National Radiology Data Registry (NRDR) Dose Index Registry (DIR) with the [employer] ([employer]). RADIATION OPTIMIZATION: All CT scans at this facility use at least one of these dose optimization te chniques: automated exposure control; mA and/or kV adjustment per patient size (includes targeted exa ms where dose is matched to clinical indication); or iterative reconstruction.
[2022-04-19] MEDS: Omnipaque 350 MG/ML 500 ML BTL-Imaging package IJ (10:07)
== END ==
PROVIDERS: PCP Family Medicine; Visit Provider Nurse Practitioner Gerontology
DX: R91.1 Solitary pulmonary nodule (principal); J84.10 Pulmonary fibrosis, unspecified; K76.89 Other specified diseases of liver
CPT/HCPCS: 71260

== ENCOUNTER 2022-04-22 12:30 | Emergency (ER) | payer MEDICARE, MEDICAID, SELFPAY ==
[2022-04-22] VITALS (51 sets, daily range): BP systolic 98–164; BP diastolic 54–80; PULSE 52–71; RESP 13–24; TEMP 36.3–36.6; O2SAT 92–98
--- NOTE | 2022-04-22 12:30 | RT.EKG_ITS ---
APPROVED REPORT Exam: Resting ECG Reason for Exam: chest pain Patient Location: E HR:64 bpm ECG Measurements Heart Rate 64 AXIS IA [id number] P [id number] QRSd 89 QRS 32 QT 432 T 168 QTc 448 Conclusion Atrial fibrillation...? atrial activity Repol abnrm suggests ischemia, anterolateral...ST dep, T neg, I aVL V2-V6. Afib. Less than 1mm ST depression in I, II, aVL, V4-6 seen in previous EKGs without significant arroyo ge. No STEMI.
[2022-04-22 13:08] LABS: Source Nasal/Nares
[2022-04-22 13:11] LABS: Abs Immature Grans 0.04 10^3/uL (0.0-0.06); Absolute Basophil Count 0.06 10^3/uL (0.0-0.2); Absolute Eosinophil Count 0.17 10^3/uL (0.0-0.7); Absolute Lymphocyte Count 2.28 10^3/uL (1.2-3.4); Absolute Monocyte Count 0.69 10^3/uL (0.1-0.8); Absolute Neutrophil Count 6.24 10^3/uL (1.2-6.7); Basophils % 0.6; Eosinophils % 1.8; HCT 43.5 % (36.0-46.0); HGB 14.3 g/dL (11.2-15.7); Immature Grans % 0.4; Lymphocytes % 24.1; MCHC 32.9 % (32.0-36.0); MCV 94 fL (80-95); MPV 11.2 fL (8.0-11.0); Monocytes % 7.3; Neutrophils % 65.8; Platelet Count 240 10^3/uL (130-400); RBC 4.62 10^6/uL (3.93-5.22); RDW 14.6 % (11.7-14.6); WBC 9.48 10^3/uL (4.4-10.8)
[2022-04-22 13:32] LABS: ALT 37 U/L (14-59); AST 35 U/L (15-37); Albumin 3.7 g/dL (3.4-5.0); Alkaline Phosphatase 123 U/L (46-116); Anion Gap 8.6 mmol/L (3-11); BUN 39 mg/dL (7-18); Bilirubin, Total 0.9 mg/dL (0.2-1.0); CO2 30.4 mmol/L (21.0-32.0); CREATININE 1.4 mg/dL (0.55-1.02); Calcium 9.1 mg/dL (8.5-10.1); Chloride 99 mmol/L (98-107); Estimated GFR 40.73 (mL/min/1.73m2); Glucose 250 mg/dL (74-106); Magnesium 1.6 mg/dL (1.8-2.4); Potassium 3.3 mmol/L (3.5-5.1); Sodium 138 mmol/L (136-145); Total Protein 8.1 g/dL (6.4-8.2); Troponin I < 50 ng/L (<or=60)
--- NOTE | 2022-04-22 14:15 | DI.RAD_ITS ---
Exam(s) XR PORTABLE CHEST AP EXAM: XR PORTABLE CHEST AP CLINICAL HISTORY: shortness of breath TECHNIQUE: 2D digital imaging was performed of the chest. One image was obtained. An AP view was ob tained. COMPARISON: CR,XR XR PORTABLE CHEST AP from 10/07/2020 CR XR CHEST 2V PA LATERAL from 03/24/2022 FINDINGS: MEDIASTINUM: Normal. HEART: Normal. PULMONARY VASCULATURE: Normal. LUNGS: The appearance of the lungs are stable with findings suggestive of chronic fibrosis. No evide nce of a superimposed infiltrate. PLEURAL SPACE: No pleural effusion or pneumothorax. BONE:Within normal limits for the patient's age. OTHER FINDINGS:Normal. IMPRESSION: No acute pulmonary findings. DATA REPOSITORY: RADIATION DOSE DELIVERED:
[2022-04-22 14:32] LABS: COVID-19 PCR Negative (Negative)
[2022-04-22 14:50] LABS: NT-proBNP 1258 pg/mL (<300)
--- NOTE | 2022-04-22 15:45 | RT.EKG_ITS ---
APPROVED REPORT Exam: Resting ECG Reason for Exam: chest pain Patient Location: E HR:62 bpm ECG Measurements Heart Rate 62 AXIS NE [id number] P [id number] QRSd 84 QRS 36 QT 461 T 182 QTc 457 Conclusion Atrial fibrillation...? atrial activity Consider anteroseptal infarct...Q >30mS, dimin R, V1-V2 Repol abnrm suggests ischemia, anterolateral...ST dep, T neg, I aVL V2-V6. Afib. No STEMI.
--- NOTE | 2022-04-22 16:02 | ED.GENADUL_ITS ---
Discharge Plan Disposition Patient Disposition: HOME Condition: Stable Discharge Details Clinical Impression: CHF (congestive heart failure), Chest pain Primary Care Provider: Tamiak Frias ED Provider: Willem Ramos Home Meds and New Rx's Prescriptions: Continued (DME) blood-glucose meter misc See Dose Instructions .ROUTE .MEDSUPPLY Qty: 1 0RF Dose Instruction: As directed Rx Instructions: As directed. AC and HS E11.9 Accucheck isi (DME) lancets 28 gauge misc 1 ea Miscellaneous TID & PRN Qty: 400 12RF Rx Instructions: FOR accucheck Isi METER. PT USES INSULIN. Ac andhs E11.65/Z79.4 (DME) Blood Glucose Test strip See Dose Instructions .ROUTE .MEDSUPPLY Qty: 400 5RF Dose Instruction: AC and HS Rx Instructions: AC and HS E11.21 nitroglycerin 0.4 mg tablet, sublingual 0.4 mg sublingual Q5M PRN Rx Instructions: do not exceed 3 doses per episode montelukast 10 mg tablet 10 mg PO DAILY polyethylene glycol 3350 [Miralax] 17 gram/dose powder 17 g PO .every other day PRN levothyroxine 75 mcg capsule 75 mcg PO DAILY loratadine 10 mg tablet 10 mg PO HS Trelegy Ellipta 100-62.5-25 mcg blister with device 1 inh inhalation DAILY (DME) insulin syringe needleless [BD Insulin Syringe Slip Tip] 1 mL syringe 1 ea Miscellaneous BID Qty: 120 12RF Rx Instructions: E11.65 (DME) pen needle, diabetic [Pen Needle] 30 gauge x 5/16 needle 1 ea Miscellaneous QID Qty: 300 6RF Rx Instructions: ultra fine [id number]; E11.65 AC and HS loperamide 2 mg Capsule See Rx Instructions .ROUTE .COMPLEX Rx Instructions: 4mg PO after first loose stool, then 2mg PO after each loose stool metoprolol succinate 50 mg Tablet Extended Release 24 Hr 50 mg PO DAILY bisacodyl [Dulcolax (bisacodyl)] 10 mg Suppository 10 mg MD PRN PRN albuterol sulfate 90 mcg/actuation Hfa Aerosol Inhaler 2 puff INHALATION QID fluticasone propionate [Flonase Allergy Relief] 50 mcg/actuation [place],Suspension 2 spray INTRANASAL BID torsemide 20 mg tablet 80 mg PO BID insulin glargine [Lantus Solostar U-100 Insulin] 100 unit/mL (3 mL) insulin pen 77 unit SUBCUT BID insulin lispro [Humalog U-100 Insulin] 100 unit/mL solution 15 unit subcut AC ropinirole 2 mg Tablet 2 mg PO .NOON calcium carbonate-vitamin D3 [Calcium 600 + D(3)] 600 mg(1,500mg) -400 unit Tablet 1 tab PO BID acetaminophen [Tylenol] 325 MG tablet 650 mg PO BID PRN Eliquis 5 mg tablet 5 mg PO BID benzonatate 100 mg Capsule 100 mg PO TID PRN omeprazole 20 mg Capsule,Delayed Release(Dr/Ec) 20 mg PO DAILY atorvastatin 40 mg Tablet 40 mg PO DAILY ropinirole 3 mg Tablet 3 mg PO HS Lactobacillus acidophilus Tablet 1 tab PO DAILY fluoxetine 10 mg Capsule 10 mg PO DAILY magnesium oxide 400 mg magnesium Tablet 400 mg PO DAILY Discharge Instructions Instructions: Heart Failure (ED), Chest Pain (ED), Pulmonary Edema (ED) Additional Instructions: Recommend reassessment by provider tomorrow, outpatient stress test, increasing your torsemide to 100 mg twice daily for the next several days Early return should you have worsening or return of symptoms Discharge Data Discharge Date/Time-TO BE ENTERED AT DEPARTURE: 04/22/22 19:14 Medical Decision Making <SHERI Tesfaye - Last Filed: 04/24/22 20:33> we talked about being admitted to the hospital, patient expressed preference to be discharged home BNP is slightly elevated from her baseline, will increase your her torsemide 200 mg twice daily for the next several days, 3 days and then return to her 80 mg twice daily <SHERI Childress - Last Filed: 04/22/22 17:07> we talked about being admitted to the hospital, patient expressed preference to be discharged home BNP is slightly elevated from her baseline, will increase your her torsemide 200 mg twice daily for the next several days, 3 days and then return to her 80 mg twice daily 1530 Willem Ramos PA-C I assumed care of this 71-year-old female from my colleague SHERI Riggins, please see her initial HPI and examination. Patient initially presented for shortness of breath and chest pain. Work-up pursued, BNP slightly worse than baseline. It was recommended that the patient be admitted but she declines, understands the risk, and is requesting to be discharged home. At time of signout awaiting delta troponin and EKG. Delta troponin less than 50 Repeat EKG performed at 1607. A. fib, ventricular of 62, not on [place] ST changes. No STEMI. No dynamic changes when compared to initial EKG. I personally evaluated the patient in room 6, resting comfortably, speaks in full sentences. She reports feeling improvement, at baseline, currently asymptomatic. She again is requesting discharge. She does understand that admission was recommended but again she declines. Standard discharge and return precautions were provided. Patient understands, is agreeable to this plan, and has no additional questions or concerns upon discharge. This documentation was generated using [employer] dictation system, please disregard any oddities of phrase or misspellings. HPI <SHERI Tesfaye - Last Filed: 04/24/22 20:33> General Date/Time Provider Initiated Documentation: 04/22/22 12:40 . HPI Narrative: This 71-year-old female with history of type 2 diabetes, pulmonary arterial hypertension, morbid obesity, coronary artery disease, presents with report of some mild chest pain and shortness of breath. She states that she has been worked up outpatient for shortness of breath and had a CT scan this week. She is taking all of her medications as prescribed. She states that she is currently pain-free. She received nitroglycerin and several hours later had resolution of her pain on her own. Her pain was not exertional in nature. She states it was a light fluttering sensation. She denies any current shortness of breath or chest discomfort. She denies any calf pain or swelling. She denies any significant weight gain. Denies any nausea or diaphoresis associated. Related Data Home Medications Medication Instructions Recorded Confirmed insulin syringe needleless 1 mL #120 SYRGS 04/10/18 02/23/22 (BD Insulin Syringe Slip Tip) pen needle, diabetic 30 gauge x ##300 04/10/18 02/23/2211/23 (Pen Needle) blood-glucose meter #1 ea 11/14/18 02/23/22 blood sugar diagnostic (Blood #400 ea 11/29/18 02/23/22 Glucose Test strips) lancets 28 gauge #400 ea 11/29/18 02/23/22 acetaminophen 325 mg tablet 650 mg PO BID PRN 08/26/20 04/22/22 (Tylenol) calcium carbonate 600 mg-vitamin 1 tab PO BID 08/26/20 04/22/22 D3 10 mcg (400 unit) tablet (Calcium 600 + D(3)) ropinirole 2 mg tablet 2 mg PO .NOON 08/26/20 04/22/22 apixaban 5 mg tablet (Eliquis) 5 mg PO BID 10/07/20 04/22/22 benzonatate 100 mg capsule 100 mg PO TID PRN 10/07/20 04/22/22 albuterol sulfate 90 mcg/actuation 2 puff inhalation QID 03/06/21 04/22/22 aerosol inhaler bisacodyl 10 mg rectal suppository 10 mg MD PRN PRN 03/06/21 04/22/22 (Dulcolax (bisacodyl)) fluticasone propionate 50 2 spray intranasal BID 03/06/21 04/22/22 mcg/actuation nasal spray,suspension (Flonase Allergy Relief) loperamide 2 mg capsule See Rx Instructions .Route .COMPLEX 03/06/21 04/22/22 metoprolol succinate 50 mg 50 mg PO DAILY 03/06/21 04/22/22 tablet,extended release 24 hr fluticasone fur. 100 mcg-umeclid 1 inh inhalation DAILY 02/23/22 04/22/22 62.5 mcg-vilant 25 mcg inhalat.powder (Trelegy Ellipta) insulin glargine 100 unit/mL (3 77 unit subcut BID 02/23/22 04/22/22 mL) subcutaneous pen (Lantus Solostar U-100 Insulin) insulin lispro 100 unit/mL 15 unit subcut AC 02/23/22 04/22/22 subcutaneous solution (Humalog U-100 Insulin) levothyroxine 75 mcg capsule 75 mcg PO DAILY 02/23/22 04/22/22 loratadine 10 mg tablet 10 mg PO HS 02/23/22 04/22/22 montelukast 10 mg tablet 10 mg PO DAILY 02/23/22 04/22/22 nitroglycerin 0.4 mg sublingual 0.4 mg sublingual Q5M PRN 02/23/22 04/22/22 tablet polyethylene glycol 3350 17 17 g PO .every other day PRN 02/23/22 04/22/22 gram/dose oral powder (Miralax) torsemide 20 mg tablet 80 mg PO BID 02/23/22 04/22/22 Lactobacillus acidophilus 1 tab PO DAILY 04/22/22 04/22/22 atorvastatin 40 mg tablet 40 mg PO DAILY 04/22/22 04/22/22 fluoxetine 10 mg capsule 10 mg PO DAILY 04/22/22 04/22/22 magnesium oxide 400 mg PO DAILY 04/22/22 04/22/22 omeprazole 20 mg capsule,delayed 20 mg PO DAILY 04/22/22 04/22/22 release ropinirole 3 mg tablet 3 mg PO HS 04/22/22 04/22/22 Previous Rx's Medication Instructions Recorded insulin syringe needleless 1 mL #120 SYRGS 04/10/18 (BD Insulin Syringe Slip Tip) pen needle, diabetic 30 gauge x ##300 04/10/1811/23 (Pen Needle) blood-glucose meter #1 ea 11/14/18 blood sugar diagnostic (Blood #400 ea 11/29/18 Glucose Test strips) lancets 28 gauge #400 ea 11/29/18 Allergies Allergy/AdvReac Type Severity Reaction Status Date / Time No Known Allergies Allergy Verified 04/22/22 14:16 General Stated Complaint: SOB JOLEEN: 2 Review of Systems <SHERI Tesfaye - Last Filed: 04/24/22 20:33> All systems reviewed & are unremarkable except as noted in HPI and below PFSH <SHERI Tesfaye - Last Filed: 04/24/22 20:33> All Active Problems (Updated 04/22/22 @ 16:15 by SHERI Tesfaye) CHF (congestive heart failure) (Chronic) Chest pain (Acute) Total avulsion of nail plate (Acute) Onycholysis (Acute) Fall (Acute) Contusion of left hip (Acute) Abrasion of right knee (Acute) 2+ pitting edema (Acute) Fluid overload, unspecified (Acute) Mixed conductive and sensorineural hearing loss, unspecified (Acute) Otosclerosis of both ears (Acute) Diaphoresis (Acute) Pneumonia (Acute) CAP (community acquired pneumonia) (Acute) Encounter for competency evaluation (Acute) Periprosthetic hip fracture (Acute) Left hip Acute pain of left hip (Acute) Hypokalemia (Acute) Atherosclerotic peripheral vascular disease of extremity (Acute) UTI (urinary tract infection) (Acute) Diabetic ketoacidosis associated with type 2 diabetes mellitus (Acute) Charcot's joint, left ankle and foot (Acute ~04/2019) Abnormal LFTs (Acute) Hypomagnesemia (Acute) DVT prophylaxis (Acute) Discharge planning issues (Acute) Uncontrolled diabetes mellitus (Acute) Fungal dermatitis (Acute) Cellulitis of breast (Acute) Cataract (Acute) Cellulitis of lower extremity (Acute 10/31/14) Closed fracture of ankle (Acute) History of Achilles tendon repair (Acute) History of surgical procedure (Acute) Hypothyroidism (Chronic 01/09/13) Perforation of intestine (Acute) Vitamin D deficiency (Chronic 05/07/15) Type 2 diabetes mellitus with diabetic neuropathy (Chronic 05/13/15) SEEN ENDOCRINE AT [facility] [place] Transient ischemic attack (Chronic) Sensorineural hearing loss, bilateral (Chronic 05/24/17) Sciatica (Chronic) right; xray from 02/10 showed scattered spondylosis ant L4-5 on the left and mid lumbar scoliosis convex to the right Pulmonary hypertension (Chronic 04/13/17) Polycythemia (Chronic 03/08/17) Otosclerosis (Chronic 10/14/14) Osteoarthritis (Chronic) right shoulder AC-DJD, Glenohumoral jt. 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 right worse than left Morbid obesity (Chronic) Hyperlipidemia (Chronic) Hypertension (Chronic) Depression (Chronic) Hypothyroidism (Chronic) Restless legs syndrome (Chronic) Sleep apnea with use of continuous positive airway pressure (CPAP) (Chronic) Venous stasis (Chronic) History of tobacco use (Chronic) a. quit in 1995 after approximately 30 pack years H/O fracture of ankle (Chronic) s. Left ankle 2011 Insomnia (Chronic) Hearing loss (Chronic) Left knee DJD (Chronic) DJD of shoulder (Chronic) a. on right Arthritis (Chronic) Toe gangrene (Chronic) Atrial fibrillation (Chronic) Pulmonary hypertension due to sleep-disordered breathing (Chronic) Amputated toe of right foot (Chronic) Medical History Palliative care encounter Surgical History Amputation RIGHT SECOND AND THIRD TOES DUE TO DIABETIC ULCERS WITH CELLULITIS;11/14/17 DR. MAI Colonoscopy - MAC (~2003) Extraction of cataract 04/15/17 DR. ARRIETA; LEFT EYE 04/29/17 DR. ARRIETA; RIGHT EYE PROCEDURES REPAIR OF INTESTINE NEC puncture during colonoscopy ACHILLOTENOTOMY L Achilles tendon repair Family History Mother Neoplasm LUNG Father Heart disease Brother Heart disease Sister No problems noted. Grandfather Heart disease Grandfather Heart disease Grandmother Diabetes Grandmother Diabetes Sister No problems noted. Sister No problems noted. Sister Diabetes Sister No problems noted. Brother No problems noted. Brother No problems noted. Social History (Updated 02/23/22 @ 10:36 by Desi Jones RN) Smoking/Tobacco Use Status: Former Tobacco Use Smoking risk assessment performed?: Yes Alcohol Intake: never Drug use: Never Substance use type: does not use current occupation: [employer] @ [employer] Current gender identity: female Do you feel safe at home: Yes Do you feel safe in your relationship?: Yes Exam <SHERI Tesfaye - Last Filed: 04/24/22 20:33> Const General: cooperative, comfortable and no acute distress Nutritional Appearance: obese Orientation: alert and oriented x3 Other: Hard of hearing Eyes Pupils: PERRL Resp Effort & Inspection: normal respiratory effort Auscultation: clear to auscultation bilaterally Cardio Rate: regular rate Rhythm: regular rhythm GI Inspection: normal to inspection Skin General skin exam: no rashes or lesions noted Neuro General: patient alert and patient oriented x3 Course <SHERI Tesfaye - Last Filed: 04/24/22 20:33> Vital Signs Vital signs: Vital Signs Temperature 36.6 C 04/22/22 12:31 Pulse 71 04/22/22 12:31 Respiratory Rate 20 04/22/22 12:31 Blood Pressure 164/57 H 04/22/22 12:31 Temperature 36.6 C 04/22/22 12:31 Temperature Source Skin 04/22/22 12:31 Pulse 60 04/22/22 13:31 Pulse 61 04/22/22 13:40 Respiratory Rate 16 04/22/22 13:40 Respiratory Effort 04/22/22 12:40 Blood Pressure 122/55 L 04/22/22 13:31 Blood Pressure Mean 69 04/22/22 13:31 Pulse Oximetry 96 04/22/22 13:44 Oxygen Delivery Method Room Air 04/22/22 13:44 Oxygen Flow Rate 0 04/22/22 13:44 Pain Level 0 04/22/22 12:31 Lab/Test Results Lab/Test Results: Laboratory Tests Range/Units 04/22/22 04/22/22 04/22/22 12:30 12:30 12:30 WBC (4.4-10.8) 10^3/uL 9.48 RBC (3.93-5.22) 10^6/uL 4.62 Hgb (11.2-15.7) g/dL 14.3 Hct (36.0-46.0) % 43.5 MCV (80-95) fL 94 MCH (27.0-33.0) pg 31.0 MCHC (32.0-36.0) % 32.9 RDW (11.7-14.6) % 14.6 Plt Count (130-400) 10^3/uL 240 MPV (8.0-11.0) fL 11.2 H Immature Gran % 0.4 Neutrophils % 65.8 Lymphocytes % 24.1 Monocytes % 7.3 Eosinophils % 1.8 Basophils % 0.6 Nucleated RBC % (0.0-0.3) % 0.0 Absolute Neutrophils (1.2-6.7) 10^3/uL 6.24 Absolute Lymphocytes (1.2-3.4) 10^3/uL 2.28 Absolute Monocytes (0.1-0.8) 10^3/uL 0.69 Absolute Eosinophils (0.0-0.7) 10^3/uL 0.17 Absolute Basophils (0.0-0.2) 10^3/uL 0.06 Sodium (136-145) mmol/L 138 Potassium (3.5-5.1) mmol/L 3.3 L Chloride (98-107) mmol/L 99 Carbon Dioxide (21.0-32.0) mmol/L 30.4 Anion Gap (3-11) mmol/L 8.6 BUN (7-18) mg/dL 39 H Creatinine (0.55-1.02) mg/dL 1.4 H Est GFR (CKD-EPI 2020) (mL/min/1.73m2) 40.73 Glucose (74-106) mg/dL 250 H Calcium (8.5-10.1) mg/dL 9.1 Magnesium (1.8-2.4) mg/dL 1.6 L Total Bilirubin (0.2-1.0) mg/dL 0.9 AST (15-37) U/L 35 ALT (14-59) U/L 37 Alkaline Phosphatase (46-116) U/L 123 H Troponin I (<or=60) ng/L < 50 NT-Pro-B Natriuret Pep (<300) pg/mL 1258 H Total Protein (6.4-8.2) g/dL 8.1 Albumin (3.4-5.0) g/dL 3.7 COVID-19 Source SARS-CoV-2 (PCR) (Negative) Range/Units 04/22/22 13:05 WBC (4.4-10.8) 10^3/uL RBC (3.93-5.22) 10^6/uL Hgb (11.2-15.7) g/dL Hct (36.0-46.0) % MCV (80-95) fL MCH (27.0-33.0) pg MCHC (32.0-36.0) % RDW (11.7-14.6) % Plt Count (130-400) 10^3/uL MPV (8.0-11.0) fL Immature Gran % Neutrophils % Lymphocytes % Monocytes % Eosinophils % Basophils % Nucleated RBC % (0.0-0.3) % Absolute Neutrophils (1.2-6.7) 10^3/uL Absolute Lymphocytes (1.2-3.4) 10^3/uL Absolute Monocytes (0.1-0.8) 10^3/uL Absolute Eosinophils (0.0-0.7) 10^3/uL Absolute Basophils (0.0-0.2) 10^3/uL Sodium (136-145) mmol/L Potassium (3.5-5.1) mmol/L Chloride (98-107) mmol/L Carbon Dioxide (21.0-32.0) mmol/L Anion Gap (3-11) mmol/L BUN (7-18) mg/dL Creatinine (0.55-1.02) mg/dL Est GFR (CKD-EPI 2020) (mL/min/1.73m2) Glucose (74-106) mg/dL Calcium (8.5-10.1) mg/dL Magnesium (1.8-2.4) mg/dL Total Bilirubin (0.2-1.0) mg/dL AST (15-37) U/L ALT (14-59) U/L Alkaline Phosphatase (46-116) U/L Troponin I (<or=60) ng/L NT-Pro-B Natriuret Pep (<300) pg/mL Total Protein (6.4-8.2) g/dL Albumin (3.4-5.0) g/dL COVID-19 Source Nasal/Nares SARS-CoV-2 (PCR) (Negative) Negative Sign Out <SHERI Tesfaye - Last Filed: 04/24/22 20:33> Sign Out Data: Sign Out Comment: pending repeat EKG and troponin, likely dc home wtg Last updated by Clotilde Riggins PA at 04/22/22 16:16
[2022-04-22 16:32] LABS: Troponin I < 50 ng/L (<or=60)
== END 2022-04-22 19:14 | disposition home or self-care (01) ==
PROVIDERS: Physician Assistant; Emergency Provider Physician Assistant; PCP Family Medicine
DX: I50.9 Heart failure, unspecified (principal); I48.91 Unspecified atrial fibrillation; E11.9 Type 2 diabetes mellitus without complications; E66.9 Obesity, unspecified; Z20.822 Contact with and (suspected) exposure to COVID-19
CPT/HCPCS: 80053; 87635; 93005; 99283; 99284; 71045; 83735; 83880; 84484; 85025; 93010

== ENCOUNTER 2022-04-27 15:23 | Outpatient (REF) | payer MEDICARE, MEDICAID, SELFPAY ==
[2022-04-27 16:50] LABS: ALT 36 U/L (14-59); AST 33 U/L (15-37); Albumin 3.5 g/dL (3.4-5.0); Alkaline Phosphatase 115 U/L (46-116); Anion Gap 10.7 mmol/L (3-11); BUN 32 mg/dL (7-18); Bilirubin, Total 0.9 mg/dL (0.2-1.0); CO2 30.3 mmol/L (21.0-32.0); CREATININE 1.2 mg/dL (0.55-1.02); Calcium 9.6 mg/dL (8.5-10.1); Chloride 99 mmol/L (98-107); Glucose 228 mg/dL (74-106); Potassium 3.4 mmol/L (3.5-5.1); Sodium 140 mmol/L (136-145); Total Protein 7.2 g/dL (6.4-8.2)
== END 2022-04-27 15:24 | disposition home or self-care (01) ==
LOC: LBN 15:23
PROVIDERS: PCP Family Medicine; Visit Provider Nurse Practitioner Gerontology
DX: E11.65 Type 2 diabetes mellitus with hyperglycemia (principal); I27.21 Secondary pulmonary arterial hypertension; I25.10 Atherosclerotic heart disease of native coronary artery without angina pectoris; I48.19 Other persistent atrial fibrillation; M62.81 Muscle weakness (generalized); E66.01 Morbid (severe) obesity due to excess calories
CPT/HCPCS: 80053

== ENCOUNTER 2022-05-04 18:16 | Outpatient (REF) | payer MEDICARE, MEDICAID, SELFPAY ==
[2022-05-04 23:55] LABS: ALT 40 U/L (14-59); AST 46 U/L (15-37); Albumin 4.1 g/dL (3.4-5.0); Alkaline Phosphatase 148 U/L (46-116); Anion Gap 10.3 mmol/L (3-11); BUN 28 mg/dL (7-18); Bilirubin, Total 1.1 mg/dL (0.2-1.0); CO2 29.7 mmol/L (21.0-32.0); CREATININE 1.3 mg/dL (0.55-1.02); Calcium 9.8 mg/dL (8.5-10.1); Chloride 97 mmol/L (98-107); Estimated GFR 44.51 (mL/min/1.73m2); Glucose 265 mg/dL (74-106); NT-proBNP 1039 pg/mL (<300); Potassium 3.7 mmol/L (3.5-5.1); Sodium 137 mmol/L (136-145); Total Protein 8.2 g/dL (6.4-8.2)
== END 2022-05-04 18:17 | disposition home or self-care (01) ==
LOC: LBN 18:16
PROVIDERS: PCP Family Medicine; Visit Provider Nurse Practitioner Gerontology
DX: E11.65 Type 2 diabetes mellitus with hyperglycemia (principal); I25.10 Atherosclerotic heart disease of native coronary artery without angina pectoris; J44.9 Chronic obstructive pulmonary disease, unspecified; I48.19 Other persistent atrial fibrillation
CPT/HCPCS: 80053; 83880

== ENCOUNTER 2022-05-07 16:56 | Outpatient (REF) | payer MEDICARE, MEDICAID, SELFPAY ==
[2022-05-07 17:58] LABS: Abs Immature Grans 0.05 10^3/uL (0.0-0.06); Absolute Basophil Count 0.09 10^3/uL (0.0-0.2); Absolute Eosinophil Count 0.33 10^3/uL (0.0-0.7); Absolute Lymphocyte Count 2.33 10^3/uL (1.2-3.4); Absolute Monocyte Count 0.84 10^3/uL (0.1-0.8); Basophils % 0.8; Eosinophils % 2.9; HCT 42.7 % (36.0-46.0); HGB 13.7 g/dL (11.2-15.7); Immature Grans % 0.4; Lymphocytes % 20.6; MCH 31.1 pg (27.0-33.0); MCHC 32.1 % (32.0-36.0); MCV 97 fL (80-95); MPV 11.5 fL (8.0-11.0); Monocytes % 7.4; Neutrophils % 67.9; Platelet Count 244 10^3/uL (130-400); RDW 14.4 % (11.7-14.6); RDW-SD 51.6 fL; WBC 11.29 10^3/uL (4.4-10.8)
[2022-05-07 17:59] LABS: Absolute Neutrophil Count 7.67 10^3/uL (1.2-6.7)
[2022-05-07 18:24] LABS: ALT 35 U/L (14-59); AST 41 U/L (15-37); Albumin 3.7 g/dL (3.4-5.0); Alkaline Phosphatase 130 U/L (46-116); Anion Gap 8.3 mmol/L (3-11); BUN 35 mg/dL (7-18); Bilirubin, Total 0.9 mg/dL (0.2-1.0); CO2 30.7 mmol/L (21.0-32.0); CREATININE 1.3 mg/dL (0.55-1.02); Calcium 8.7 mg/dL (8.5-10.1); Chloride 100 mmol/L (98-107); Estimated GFR 44.51 (mL/min/1.73m2); Glucose 250 mg/dL (74-106); NT-proBNP 1052 pg/mL (<300); Potassium 3.5 mmol/L (3.5-5.1); Sodium 139 mmol/L (136-145); Total Protein 7.3 g/dL (6.4-8.2)
== END 2022-05-07 16:57 | disposition home or self-care (01) ==
LOC: LBN 16:56
PROVIDERS: PCP Family Medicine; Visit Provider Nurse Practitioner Gerontology
DX: I50.32 Chronic diastolic (congestive) heart failure (principal); R53.1 Weakness; R68.89 Other general symptoms and signs
CPT/HCPCS: 80053; 83880; 85025

== ENCOUNTER → 2022-05-14 14:47 | Outpatient (CLI) | payer MEDICARE, MEDICAID, SELFPAY ==
[2022-05-14] MEDS: Barium Sulfate 2% W/V-Berry Smoothie 450 ML BTL 900 ML PO (10:37)
--- NOTE | 2022-05-14 11:08 | DI.CT_ITS ---
Exam(s) CT ABDOMEN PELVIS W EXAM: CT ABDOMEN PELVIS W CLINICAL HISTORY: F/U LIVER LESIONS AND CT OF 09/30/19. Since the prior CT scan of 09/30/2019 is rec ommended. TECHNIQUE: Imaging Protocol: Axial computed tomography images with coronal and sagittal reformatted images were created and reviewed CONTRAST MATERIAL: Intravenous: Omnipaque 100cc Oral: None COMPARISON: CT CT CHEST PE ABD PELVIS W from 09/30/2019 FINDINGS: VISUALIZED LUNG BASES: COPD findings in the lung bases. There has been some improvement in the confl uent infiltrate seen on the September 1021 study in the posterior basal segment of the left lower lobe. This has resolved. Nodular infiltrates in the right lung base has also resolved. There is some grou nd-glass density is throughout both lung bases noted, possibly related to air trapping. There are no pleural effusions.. ABDOMEN: There is no ascites. LIVER: There is significant deterioration in the appearance of the liver. There are now multiple are as of abnormal hypodensity in the liver which were not evident in September 2019, these mostly subcapsula r location. This is possibly related to fatty parenchymal change although cannot totally exclude a n eoplastic or infectious process. GALLBLADDER/BILIARY: Cholelithiasis again noted. There is a prominent noncalcified gallstone measuri ng 2.8 by 2.0 cm. Gallbladder wall is not edematous. No pericholecystic fluid. CBD not dilated. PANCREAS: No evidence of pancreatic mass nor dilatation of the pancreatic duct. SPLEEN: Spleen is not enlarged. No obvious intrasplenic lesions. Splenic and portal veins are paten t. ADRENALS: There are small calcifications noted in the lateral limbs of both adrenal glands. No assoc iated mass seen with these calcifications. Both adrenal glands exhibit normal size. KIDNEYS:No cysts evident. No solid renal masses. No calculi nor hydronephrosis.. ABDOMINAL AORTA: Abdominal aorta is not enlarged. LYMPH NODES:There is no retroperitoneal nor paraaortic adenopathy. ABDOMINAL WALL: Anterior abdominal wall fat containing hernia. Does not contain bowel loops. GI: There is no evidence of bowel obstruction nor free air. PELVIS: GI: No evidence of appendicitis.No evidence of sigmoid diverticulitis. LYMPH NODES: There is no intrapelvic nor inguinal adenopathy. REPRODUCTIVE: Uterus and adnexal regions appear age-appropriate. Small calcifications in left side o f the uterus which is probably in a fibroid. URINARY BLADDER: Not distended. No obvious abnormality. OSSEOUS: Left hip prosthesis. There is a healed fracture of the posterior aspect of the right 11th r ib now evident. No other acute nor healed rib fractures identified. Unchanged mild wedge compressio n fracture of L3, unchanged. However, there is now significant abnormality in the T10 vertebral body which has the appearance of a n AP orientated fracture, not associated with height loss. Another possibly that this is an infiltra tive process. IMPRESSION: 1. Compared to the prior CT scan of 09/30/2019 there has been significant change in the appearance of the liver which now contains individual confluent areas of hypodensity which are mostly subcapsular and may represent fatty parenchymal change although cannot completely exclude neoplastic and infectio us etiology. Follow-up MRI would be helpful for added specificity. 2. Cholelithiasis again noted. No evidence of acute cholecystitis. 3. There is abnormal appearance of the T10 vertebral body with AP orientated lucency therein extendin g from the anterior to the posterior cortex. Difficult to determine if this is posttraumatic or path ologic fracture due to neoplastic involvement. Correlation with any interval trauma since the prior CT scan is recommended. 4. There is a healed fracture of the right 11th rib now evident. This was not evident on CT scan of 09/30/2019 5. There has been some improvement in the infiltrates in both lung bases. There are no pleural effu sions. RADIATION DOSE DELIVERED: 2,501.87mGy.cm Total DLP DATA REPOSITORY: All CT scans at this facility are submitted to the National Radiology Data Registry (NRDR) Dose Index Registry (DIR) with the [employer] (ACR). RADIATION OPTIMIZATION: All CT scans at this facility use at least one of these dose optimization te chniques: automated exposure control; mA and/or kV adjustment per patient size (includes targeted exa ms where dose is matched to clinical indication); or iterative reconstruction.
== END ==
PROVIDERS: PCP Family Medicine; Visit Provider Nurse Practitioner Gerontology
DX: K80.20 Calculus of gallbladder without cholecystitis without obstruction (principal)
CPT/HCPCS: 74177

== ENCOUNTER → 2022-05-18 14:17 | Outpatient (BNVA) | payer MEDICARE, MEDICAID, SELFPAY | PROVIDERS: PCP Family Medicine; Referring Provider Family Medicine; Visit Provider Internal Medicine Cardiovascular Disease | DX: I48.21 Permanent atrial fibrillation (principal); I10 Essential (primary) hypertension; I27.29 Other secondary pulmonary hypertension; G47.8 Other sleep disorders | CPT/HCPCS: 99214 ==

== ENCOUNTER 2022-05-19 16:34 | Outpatient (REF) | payer MEDICARE, MEDICAID, SELFPAY ==
[2022-05-19 17:27] LABS: Abs Immature Grans 0.04 10^3/uL (0.0-0.06); Absolute Basophil Count 0.08 10^3/uL (0.0-0.2); Absolute Eosinophil Count 0.27 10^3/uL (0.0-0.7); Absolute Lymphocyte Count 1.78 10^3/uL (1.2-3.4); Absolute Monocyte Count 0.75 10^3/uL (0.1-0.8); Absolute Neutrophil Count 7.78 10^3/uL (1.2-6.7); Basophils % 0.7; Eosinophils % 2.5; HCT 44.5 % (36.0-46.0); Immature Grans % 0.4; Lymphocytes % 16.6; MCH 30.5 pg (27.0-33.0); MCHC 31.5 % (32.0-36.0); MCV 97 fL (80-95); MPV 11.4 fL (8.0-11.0); Neutrophils % 72.8; Platelet Count 227 10^3/uL (130-400); RBC 4.59 10^6/uL (3.93-5.22); RDW 14.3 % (11.7-14.6); RDW-SD 51.1 fL
[2022-05-19 17:47] LABS: Hemoglobin A1C 8.7 % (<5.7)
[2022-05-19 18:02] LABS: ALT 36 U/L (14-59); AST 41 U/L (15-37); Albumin 3.8 g/dL (3.4-5.0); Alkaline Phosphatase 124 U/L (46-116); Anion Gap 8.5 mmol/L (3-11); BUN 34 mg/dL (7-18); Bilirubin, Total 0.9 mg/dL (0.2-1.0); CO2 29.5 mmol/L (21.0-32.0); CREATININE 1.4 mg/dL (0.55-1.02); Calcium 9.4 mg/dL (8.5-10.1); Chloride 99 mmol/L (98-107); Estimated GFR 40.73 (mL/min/1.73m2); Glucose 303 mg/dL (74-106); Magnesium 1.8 mg/dL (1.8-2.4); Sodium 137 mmol/L (136-145); Total Protein 7.6 g/dL (6.4-8.2)
[2022-05-19 18:07] LABS: Vitamin D 25 Total 29.7 ng/mL (30-100)
[2022-05-19 18:11] LABS: Folate > 20.0 ng/mL (8.6-20.0)
[2022-05-19 18:30] LABS: NT-proBNP 651 pg/mL (<300)
== END 2022-05-19 16:35 | disposition home or self-care (01) ==
LOC: LBN 16:34
PROVIDERS: PCP Family Medicine; Visit Provider Nurse Practitioner Gerontology
DX: E78.49 Other hyperlipidemia (principal); I50.32 Chronic diastolic (congestive) heart failure; J44.9 Chronic obstructive pulmonary disease, unspecified; R53.1 Weakness; R68.89 Other general symptoms and signs
CPT/HCPCS: 80053; 82306; 82746; 83036; 83735; 83880; 85025

== ENCOUNTER 2022-05-25 14:26 | Outpatient (CLI) | payer MEDICARE, MEDICAID, SELFPAY ==
[2022-05-25 23:10] LABS: Rheumatoid Factor 12.1 IU/mL (<12.0)
[2022-05-26 09:23] LABS: Cyclic Citrullinated Peptide <2.5 U/mL (<5.0)
[2022-05-26 14:41] LABS: ANA Interpretation Positive (Negative); ANA Titer Pattern 1:640 Homogeneous
[2022-05-27 14:51] LABS: dsDNA Ab, IgG <12.3 IU/mL (<30.0)
== END 2022-05-25 14:27 | disposition home or self-care (01) ==
LOC: LBN 14:32
PROVIDERS: PCP Family Medicine; Visit Provider Student in an Organized Health Care Education/Training Program
DX: J84.10 Pulmonary fibrosis, unspecified (principal)
CPT/HCPCS: 86200; 86038; 86225; 86431

== ENCOUNTER 2022-06-07 03:24 | Outpatient (CLI) | payer MEDICARE, MEDICAID, SELFPAY ==
[2022-06-07] MEDS: Albuterol HFA 18 GM 200 PUFF INH IH (08:38)
[2022-06-07] MEDS: Inhaler, Assist Device 1 EACH MC (08:39)
--- NOTE | 2022-06-08 08:52 | W.PFT ---
Date of service: 06/07/22 Time of Service: 08:06 Pulmonary Function Test Result Requesting Provider [place] Indications: Pulmonary fibrosis Interpretation Spirometry: There is no airflow limitation. There is no significant bronchodilator response. There is a restrictive pattern to spirometry. Lung Volumes: There is mild restrictive lung disease. Diffusion Capacity: There is a mild reduction in diffusion. Airway Pressure: Normal airways resistance. Impression Mild restrictive lung disease with a mildly reduced diffusion. Clinical Correlation therefore is recommended.
== END 2022-06-07 03:25 | disposition home or self-care (01) ==
LOC: RT 03:24
PROVIDERS: PCP Family Medicine; Visit Provider Student in an Organized Health Care Education/Training Program
DX: J84.10 Pulmonary fibrosis, unspecified (principal); J98.4 Other disorders of lung
CPT/HCPCS: 94060; 94726; 94729

== ENCOUNTER 2022-06-10 15:50 | Outpatient (REF) | payer MEDICARE, MEDICAID, SELFPAY ==
[2022-06-12 01:20] LABS: Influenza A RNA Result Negative (Negative); Influenza B RNA Result Negative (Negative)
[2022-06-12 14:03] LABS: RSV RNA Result Positive (Negative)
== END 2022-06-10 15:51 | disposition home or self-care (01) ==
LOC: LBN 15:50
PROVIDERS: PCP Family Medicine; Visit Provider Nurse Practitioner Gerontology
DX: I50.32 Chronic diastolic (congestive) heart failure (principal); E11.65 Type 2 diabetes mellitus with hyperglycemia; J44.9 Chronic obstructive pulmonary disease, unspecified
CPT/HCPCS: 87631

== ENCOUNTER 2022-06-13 14:25 | Emergency (ER) | payer MEDICARE, MEDICAID, SELFPAY ==
[2022-06-13 14:28] VITALS: BP 163/66; PULSE 81; RESP 24; TEMP 37.1; O2SAT 96
--- NOTE | 2022-06-13 16:19 | DI.RAD_ITS ---
Exam(s) XR CHEST 2V PA LATERAL EXAM: XR CHEST 2V PA LATERAL CLINICAL HISTORY: cough TECHNIQUE: 2D digital imaging was performed. COMPARISON: CR XR CHEST 2V PA LATERAL from 03/24/2022 CR XR PORTABLE CHEST AP from 04/22/2022 FINDINGS: HEART: Normal size. Aorta: Not dilated. PULMONARY VASCULATURE: Prominent. LUNGS: Diffuse fibrotic changes. No focal consolidation. Mild pulmonary edema not excluded. PLEURAL SPACE: No pleural effusion or pneumothorax. BONE:Unremarkable for age. IMPRESSION: Fibrotic changes. No focal infiltrate. DATA REPOSITORY: RADIATION DOSE DELIVERED:
[2022-06-13 16:25] VITALS: RESP 1; RESP 8
[2022-06-13] MEDS: Albuterol/Ipratropium 3 ML UPD VIAL UPD (16:25)
--- NOTE | 2022-06-13 16:34 | ED.GENADUL_ITS ---
Discharge Plan Disposition Patient Disposition: [facility] Facility(SNF) Condition: Stable Discharge Details Clinical Impression: Bronchitis Primary Care Provider: Tamika Frias ED Provider: Dennis Hernandez [place] Meds and New Rx's Prescriptions: New doxycycline hyclate 100 mg tablet 100 mg PO BID 7 Days Qty: 14 0RF Continued (DME) blood-glucose meter misc See Dose Instructions .ROUTE .MEDSUPPLY Qty: 1 0RF Dose Instruction: As directed Rx Instructions: As directed. AC and HS E11.9 Accucheck isi (DME) lancets 28 gauge misc 1 ea Miscellaneous TID & PRN Qty: 400 12RF Rx Instructions: FOR accucheck Isi METER. PT USES INSULIN. Ac andhs E11.65/Z79.4 (DME) Blood Glucose Test strip See Dose Instructions .ROUTE .MEDSUPPLY Qty: 400 5RF Dose Instruction: AC and HS Rx Instructions: AC and HS E11.21 Dermagran (aluminum hydroxide) 0.275 % ointment 1 applic topical BID hydrocortisone 2.5 % cream 1 applic topical DAILY PRN diclofenac sodium 1 % gel 2 g topical BID PRN Minerin Creme Cream 1 applic topical DAILY PRN vitamin B complex [Vitamins B Complex] Tablet 1 tab PO DAILY torsemide 100 mg tablet 100 mg PO BID nitroglycerin 0.4 mg tablet, sublingual 0.4 mg sublingual Q5M PRN Rx Instructions: do not exceed 3 doses per episode montelukast 10 mg tablet 10 mg PO DAILY polyethylene glycol 3350 [Miralax] 17 gram/dose powder 17 g PO .every other day PRN Trelegy Ellipta 100-62.5-25 mcg blister with device 1 inh inhalation DAILY (DME) insulin syringe needleless [BD Insulin Syringe Slip Tip] 1 mL syringe 1 ea Miscellaneous BID Qty: 120 12RF Rx Instructions: E11.65 (DME) pen needle, diabetic [Pen Needle] 30 gauge x 5/16 needle 1 ea Miscellaneous QID Qty: 300 6RF Rx Instructions: ultra fine [id number]; E11.65 AC and HS loperamide 2 mg Capsule See Rx Instructions .ROUTE .COMPLEX Rx Instructions: 4mg PO after first loose stool, then 2mg PO after each loose stool metoprolol succinate 50 mg Tablet Extended Release 24 Hr 50 mg PO DAILY bisacodyl [Dulcolax (bisacodyl)] 10 mg Suppository 10 mg SD PRN PRN albuterol sulfate 90 mcg/actuation Hfa Aerosol Inhaler 2 puff INHALATION QID fluticasone propionate [Flonase Allergy Relief] 50 mcg/actuation Edwards,Suspension 2 spray INTRANASAL BID insulin glargine [Lantus Solostar U-100 Insulin] 100 unit/mL (3 mL) insulin pen 77 unit SUBCUT BID insulin lispro [Humalog U-100 Insulin] 100 unit/mL solution 23 unit subcut AC Label Comments: hold if BS < 100 prednisone 20 mg Tablet 40 mg PO DAILY acetaminophen-codeine 300-30 mg Tablet 1 tab PO Q8H PRN Trelegy Ellipta 100-62.5-25 mcg Blister With Device 1 inh INHALATION DAILY magnesium oxide 400 mg magnesium Tablet 400 mg PO DAILY ropinirole 2 mg Tablet 2 mg PO .NOON calcium carbonate-vitamin D3 [Calcium 600 + D(3)] 600 mg(1,500mg) -400 unit Tablet 1 tab PO BID acetaminophen [Tylenol] 325 MG tablet 650 mg PO BID PRN Eliquis 5 mg tablet 5 mg PO BID benzonatate 100 mg Capsule 100 mg PO BID omeprazole 20 mg Capsule,Delayed Release(Dr/Ec) 20 mg PO DAILY atorvastatin 40 mg Tablet 40 mg PO DAILY Lactobacillus acidophilus Tablet 1 tab PO DAILY fluoxetine 10 mg Capsule 10 mg PO DAILY Discharge Instructions Instructions: Acute Bronchitis (ED) Additional Instructions: Continue to take your meds as prescribed by your facility provider and also take the antibiotic twice daily for the next week. If you develop any new or significant worsening of symptoms such as fever chills, difficulty breathing, or any further concerns feel free to return to the emergency department for reassessment. Otherwise if not improving in the next week follow-up with your normal provider for recheck. Referrals: Tamika Frias [Primary Care Provider] - 1 week (If not improving) Discharge Data Discharge Date/Time-TO BE ENTERED AT DEPARTURE: 06/13/22 17:35 Medical Decision Making Patient presenting to the emergency department for chief complaint of cough. Patient reports for the last 2 weeks she has had persistent coughing spells. She does state 10 days ago she tested positive for RSV. Patient denies any fever chills, nasal congestion, sore throat, or other symptoms. Patient does have significant history of pulmonary fibrosis, diabetes, previous episodes of pneumonia and hypertension along with significant medical history list. Review of meds that have been prescribed from patient as she lives at the [facility] show that patient is currently on prednisone, albuterol, Tessalon Perles, Tylenol with codeine, and dextromethorphan cough syrup all for episodes that she has here for. Physical exam shows no respiratory distress, clear lung sounds, no tachycardia, and unremarkable HEENT exam. Given that patient is already done viral testing I do not feel that this needs to be done. Will give patient breathing treatment due to coughing episode and feeling of chest tightness with coughing but have high suspicion of possible pneumonia but more likely some bronchitis. We will plan on performing chest x-ray. Review of chest x-ray and radiologist interpretation shows mild left midlung atelectasis no note of pneumonia or focal consolidation. Patient reassessed after breathing treatment and now shows a very mild wheeze. Patient does state some improvement of symptoms which I feel is reassuring. Given patient's overall well appearance I do feel she is safe for outpatient disposition. We will start patient on antibiotic to cover for atypical pneumonia due to complicated medical history. Patient was encouraged to continue regimen that was already prescribed to her by the facility provider and to return for any new or significant worsening of symptoms. After discussion of diagnosis and plan of care patient has no further needs, questions, or concerns and states clear understanding to return to the emergency department for any worsening symptoms. This documentation was generated using [employer] dictation system, please disregard any oddities of phrase or misspellings. Sign Out No HPI General Mode of arrival: EMS . Date/Time Provider Initiated Documentation: 06/13/22 15:39 . Limitations to Documentation: no limitations . Information obtained by: patient, RN notes reviewed and old records reviewed . History of Present Illness 71 year old F presents to the emergency department with the chief complaint of Coughing, described as moderate, Quality is described as aching, and is localized to the chest. Patient started experiencing this week(s) (2) and it has been constant and intermittent. No relieving factors improve symptom(s), Other factors that worsen symptoms (Coughing episodes) . Patient notes denies fever/chills, malaise and nausea/vomiting. Patient did receive the following treatments prior to arrival, none Related Data Home Medications Medication Instructions Recorded Confirmed insulin syringe needleless 1 mL #120 SYRGS 04/10/18 05/25/22 (BD Insulin Syringe Slip Tip) pen needle, diabetic 30 gauge x ##300 04/10/18 05/25/2211/23 (Pen Needle) blood-glucose meter #1 ea 11/14/18 05/25/22 blood sugar diagnostic (Blood #400 ea 11/29/18 05/25/22 Glucose Test strips) lancets 28 gauge #400 ea 11/29/18 05/25/22 acetaminophen 325 mg tablet 650 mg PO BID PRN 08/26/20 06/13/22 (Tylenol) calcium carbonate 600 mg-vitamin 1 tab PO BID 08/26/20 06/13/22 D3 10 mcg (400 unit) tablet (Calcium 600 + D(3)) ropinirole 2 mg tablet 2 mg PO .NOON 08/26/20 06/13/22 apixaban 5 mg tablet (Eliquis) 5 mg PO BID 10/07/20 06/13/22 benzonatate 100 mg capsule 100 mg PO BID 10/07/20 06/13/22 albuterol sulfate 90 mcg/actuation 2 puff inhalation QID 03/06/21 06/13/22 aerosol inhaler bisacodyl 10 mg rectal suppository 10 mg SD PRN PRN 03/06/21 06/13/22 (Dulcolax (bisacodyl)) fluticasone propionate 50 2 spray intranasal BID 03/06/21 06/13/22 mcg/actuation nasal spray,suspension (Flonase Allergy Relief) loperamide 2 mg capsule See Rx Instructions .Route .COMPLEX 03/06/21 06/13/22 metoprolol succinate 50 mg 50 mg PO DAILY 03/06/21 06/13/22 tablet,extended release 24 hr fluticasone fur. 100 mcg-umeclid 1 inh inhalation DAILY 02/23/22 06/13/22 62.5 mcg-vilant 25 mcg inhalat.powder (Trelegy Ellipta) insulin glargine 100 unit/mL (3 77 unit subcut BID 02/23/22 06/13/22 mL) subcutaneous pen (Lantus Solostar U-100 Insulin) montelukast 10 mg tablet 10 mg PO DAILY 02/23/22 06/13/22 nitroglycerin 0.4 mg sublingual 0.4 mg sublingual Q5M PRN 02/23/22 06/13/22 tablet polyethylene glycol 3350 17 17 g PO .every other day PRN 02/23/22 06/13/22 gram/dose oral powder (Miralax) Lactobacillus acidophilus 1 tab PO DAILY 04/22/22 06/13/22 atorvastatin 40 mg tablet 40 mg PO DAILY 04/22/22 06/13/22 fluoxetine 10 mg capsule 10 mg PO DAILY 04/22/22 06/13/22 omeprazole 20 mg capsule,delayed 20 mg PO DAILY 04/22/22 06/13/22 release insulin lispro 100 unit/mL 23 unit subcut AC 05/18/22 06/13/22 subcutaneous solution (Humalog U-100 Insulin) torsemide 100 mg tablet 100 mg PO BID 05/18/22 06/13/22 aluminum hydroxide 0.275 % topical 1 applic topical BID 05/25/22 06/13/22 ointment (Dermagran (aluminum hydroxide)) diclofenac sodium 1 % topical gel 2 g topical BID PRN 05/25/22 06/13/22 hydrocortisone 2.5 % topical cream 1 applic topical DAILY PRN 05/25/22 06/13/22 lanolin alcohols-mineral 1 applic topical DAILY PRN 05/25/22 06/13/22 oil-w.petrolatum-ceresin topical cream (Minerin Creme topical) vitamin B complex (Vitamins B 1 tab PO DAILY 05/25/22 06/13/22 Complex tablet) acetaminophen 300 mg-codeine 30 mg 1 tab PO Q8H PRN 06/13/22 06/13/22 tablet doxycycline hyclate 100 mg tablet 100 mg PO BID 7 days #14 tabs 06/13/22 fluticasone fur. 100 mcg-umeclid 1 inh inhalation DAILY 06/13/22 06/13/22 62.5 mcg-vilant 25 mcg inhalat.powder (Trelegy Ellipta) magnesium oxide 400 mg PO DAILY 06/13/22 06/13/22 prednisone 20 mg tablet 40 mg PO DAILY 06/13/22 06/13/22 Previous Rx's Medication Instructions Recorded insulin syringe needleless 1 mL #120 SYRGS 04/10/18 (BD Insulin Syringe Slip Tip) pen needle, diabetic 30 gauge x ##300 04/10/1811/23 (Pen Needle) blood-glucose meter #1 wolf 11/14/18 blood sugar diagnostic (Blood #400 wolf 11/29/18 Glucose Test strips) lancets 28 gauge #400 wolf 11/29/18 doxycycline hyclate 100 mg tablet 100 mg PO BID 7 days #14 tabs 06/13/22 Allergies Allergy/AdvReac Type Severity Reaction Status Date / Time No Known Allergies Allergy Verified 06/13/22 15:03 General Stated Complaint: Nausea/Vomit/Diar JOLEEN: 4 Review of Systems Constitutional Constitutional: Denies chills, Denies fever(s), Reports malaise and Denies poor appetite Eyes Eyes: Denies irritation ENT Ears, Nose, Mouth, and Throat: Denies dizziness, Denies nasal congestion, Denies nasal discharge and Denies sore throat Cardiovascular Cardiovascular: Denies chest pain, Denies syncope and Reports dyspnea (Only with coughing episodes) Respiratory Respiratory: Reports as per HPI, Reports cough, Reports pain with cough and Reports dyspnea (Only with coughing episodes) Gastrointestinal Gastrointestinal: Denies abdominal pain, Denies diarrhea, Denies nausea, Denies vomiting and Reports other (Episode of gagging due to coughing spell) Integumentary/Breasts Skin/Breast: Denies rash Neurologic Neurologic: Denies dizziness and Denies syncope PFSH All Active Problems (Updated 06/13/22 @ 17:00 by Dennis Hernandez NP) Bronchitis (Acute) Pulmonary fibrosis (Acute) Total avulsion of nail plate (Acute) Onycholysis (Acute) Fall (Acute) Contusion of left hip (Acute) Abrasion of right knee (Acute) 2+ pitting edema (Acute) Fluid overload, unspecified (Acute) Mixed conductive and sensorineural hearing loss, unspecified (Acute) Otosclerosis of both ears (Acute) Diaphoresis (Acute) Pneumonia (Acute) CAP (community acquired pneumonia) (Acute) Encounter for competency evaluation (Acute) Periprosthetic hip fracture (Acute) Left hip Acute pain of left hip (Acute) Hypokalemia (Acute) Atherosclerotic peripheral vascular disease of extremity (Acute) UTI (urinary tract infection) (Acute) Diabetic ketoacidosis associated with type 2 diabetes mellitus (Acute) Charcot's joint, left ankle and foot (Acute ~04/2019) Abnormal LFTs (Acute) Hypomagnesemia (Acute) DVT prophylaxis (Acute) Discharge planning issues (Acute) Uncontrolled diabetes mellitus (Acute) Fungal dermatitis (Acute) Cellulitis of breast (Acute) Cataract (Acute) Cellulitis of lower extremity (Acute 10/31/14) Closed fracture of ankle (Acute) History of Achilles tendon repair (Acute) History of surgical procedure (Acute) Hypothyroidism (Chronic 01/09/13) Perforation of intestine (Acute) Vitamin D deficiency (Chronic 05/07/15) Type 2 diabetes mellitus with diabetic neuropathy (Chronic 05/13/15) SEEN ENDOCRINE AT [facility] [place] Transient ischemic attack (Chronic) Sensorineural hearing loss, bilateral (Chronic 05/24/17) Sciatica (Chronic) right; xray from 02/10 showed scattered spondylosis ant L4-5 on the left and mid lumbar scoliosis convex to the right Pulmonary hypertension (Chronic 04/13/17) Polycythemia (Chronic 03/08/17) Otosclerosis (Chronic 10/14/14) Osteoarthritis (Chronic) right shoulder AC-DJD, Glenohumoral jt. 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 right worse than left Morbid obesity (Chronic) Hyperlipidemia (Chronic) Hypertension (Chronic) Depression (Chronic) Hypothyroidism (Chronic) Restless legs syndrome (Chronic) Sleep apnea with use of continuous positive airway pressure (CPAP) (Chronic) Venous stasis (Chronic) History of tobacco use (Chronic) a. quit in 1995 after approximately 30 pack years H/O fracture of ankle (Chronic) s. Left ankle 2011 Insomnia (Chronic) Hearing loss (Chronic) Left knee DJD (Chronic) DJD of shoulder (Chronic) a. on right Arthritis (Chronic) Toe gangrene (Chronic) Atrial fibrillation (Chronic) Pulmonary hypertension due to sleep-disordered breathing (Chronic) Amputated toe of right foot (Chronic) Medical History Palliative care encounter Surgical History Amputation RIGHT SECOND AND THIRD TOES DUE TO DIABETIC ULCERS WITH CELLULITIS;11/14/17 DR. MAI Colonoscopy - MAC (~2003) Extraction of cataract 04/15/17 DR. ARRIETA; LEFT EYE 04/29/17 DR. ARRIETA; RIGHT EYE PROCEDURES REPAIR OF INTESTINE NEC puncture during colonoscopy ACHILLOTENOTOMY L Achilles tendon repair Family History Mother Neoplasm LUNG Father Heart disease Brother Heart disease Sister No problems noted. Grandfather Heart disease Grandfather Heart disease Grandmother Diabetes Grandmother Diabetes Sister No problems noted. Sister No problems noted. Sister Diabetes Sister No problems noted. Brother No problems noted. Brother No problems noted. Social History Smoking/Tobacco Use Status: Former Tobacco Use Smoking risk assessment performed?: Yes Alcohol Intake: never Drug use: Never Substance use type: does not use current occupation: [employer] @ [employer] Current gender identity: female Do you feel safe at home: Yes Do you feel safe in your relationship?: Yes Exam Const General: cooperative, no acute distress and not ill appearing Orientation: alert, awake and oriented x3 HENMT Head: normal to inspection, normocephalic and atraumatic Ears: hearing grossly normal bilaterally and TM's normal bilaterally General nose exam: external nose normal Face and sinus: no erythema Mouth: moist mucous membranes Throat: posterior oropharynx normal Neck Neck: normal visual inspection, full ROM, no lymphadenopathy, no meningeal signs, trachea midline and supple Resp Effort & Inspection: normal respiratory effort, able to speak in complete sentences, cough Quality of cough: dry and no respiratory distress Auscultation: clear to auscultation bilaterally Cardio Rate: regular rate Rhythm: regular rhythm Heart Sounds: S1 normal, S2 normal, normal S1 and S2, no murmurs and no rubs Skin General skin exam: no rashes or lesions noted Neuro General: patient alert, patient awake, patient oriented x3, moves all extremities and no focal motor deficits Cognition: normal cognition Speech: speech normal Sensory Exam: no sensory deficits noted Course Vital Signs Vital signs: Vital Signs Temperature 37.1 C 06/13/22 14:28 Pulse 81 06/13/22 14:28 Respiratory Rate 24 06/13/22 14:28 Blood Pressure 163/66 H 06/13/22 14:28 Pulse Oximetry 96 06/13/22 14:28 Temperature 37.1 C 06/13/22 14:28 Temperature Source Temporal Artery Scan 06/13/22 14:28 Pulse 81 06/13/22 14:28 Respiratory Rate 24 06/13/22 14:28 Respiratory Effort Non-Labored 06/13/22 15:38 Blood Pressure 163/66 H 06/13/22 14:28 Blood Pressure Position Sitting 06/13/22 14:28 Pulse Oximetry 96 06/13/22 14:28 Oxygen Delivery Method Room Air 06/13/22 14:28 Oxygen Flow Rate 0 06/13/22 14:28 Pain Level 0 06/13/22 14:28
--- NOTE | 2022-06-13 16:40 | DI.VRAD_ITS ---
PROCEDURE INFORMATION: Exam: XR Chest Exam date and time: 06/13/2022 4:10 PM Age: 71 years old Clinical indication: Cough TECHNIQUE: Imaging protocol: Radiologic exam of the chest. Views: 2 views. COMPARISON: CR XR PORTABLE CHEST AP 04/22/2022 2:42 PM FINDINGS: Lungs: Low lung volumes. Left midlung atelectasis. No lung consolidation. Pleural spaces: Unremarkable. No pleural effusion. No pneumothorax. Heart/Mediastinum: Unremarkable. No cardiomegaly. Bones/joints: Unremarkable. IMPRESSION: Left midlung atelectasis. Dictated and Authenticated by: Roger Mendez MD. Ordering:EMILY Collins MD
[2022-06-13 17:00] VITALS: BP 147/81; PULSE 115; TEMP 37; O2SAT 98
[2022-06-13] MEDS: Doxycycline Hyclate 100 MG CAP PO (17:06)
== END 2022-06-13 17:35 | disposition skilled nursing facility (03) ==
PROVIDERS: Emergency Provider Nurse Practitioner Family; PCP Family Medicine
DX: J20.9 Acute bronchitis, unspecified (principal); R05.1 Acute cough
CPT/HCPCS: 94640; 99283; 71046; J7620

== ENCOUNTER 2022-06-30 18:14 | Outpatient (REF) | payer MEDICARE, MEDICAID, SELFPAY ==
[2022-06-30 18:57] LABS: Abs Immature Grans 0.03 10^3/uL (0.0-0.06); Absolute Basophil Count 0.09 10^3/uL (0.0-0.2); Absolute Eosinophil Count 0.29 10^3/uL (0.0-0.7); Absolute Lymphocyte Count 1.98 10^3/uL (1.2-3.4); Absolute Neutrophil Count 6.64 10^3/uL (1.2-6.7); Basophils % 0.9; Eosinophils % 2.9; HCT 41.5 % (36.0-46.0); HGB 13.6 g/dL (11.2-15.7); Immature Grans % 0.3; Lymphocytes % 19.9; MCH 31.3 pg (27.0-33.0); MCHC 32.8 % (32.0-36.0); MCV 95 fL (80-95); MPV 11.1 fL (8.0-11.0); Monocytes % 9.1; Neutrophils % 66.9; Platelet Count 251 10^3/uL (130-400); RBC 4.35 10^6/uL (3.93-5.22); RDW 14.1 % (11.7-14.6); RDW-SD 49.2 fL; WBC 9.93 10^3/uL (4.4-10.8)
[2022-06-30 19:22] LABS: ALT 37 U/L (14-59); AST 48 U/L (15-37); Albumin 3.4 g/dL (3.4-5.0); Alkaline Phosphatase 156 U/L (46-116); Anion Gap 10.5 mmol/L (3-11); BUN 29 mg/dL (7-18); Bilirubin, Total 0.8 mg/dL (0.2-1.0); CO2 28.5 mmol/L (21.0-32.0); CREATININE 1.3 mg/dL (0.55-1.02); Calcium 8.9 mg/dL (8.5-10.1); Chloride 96 mmol/L (98-107); Estimated GFR 44.51 (mL/min/1.73m2); Glucose 429 mg/dL (74-106); NT-proBNP 1112 pg/mL (<300); Potassium 3.7 mmol/L (3.5-5.1); Sodium 135 mmol/L (136-145); Total Protein 7.6 g/dL (6.4-8.2)
== END 2022-06-30 18:15 | disposition home or self-care (01) ==
LOC: LBN 18:14
PROVIDERS: PCP Family Medicine; Visit Provider Nurse Practitioner Gerontology
DX: R53.1 Weakness (principal); I50.32 Chronic diastolic (congestive) heart failure; J21.0 Acute bronchiolitis due to respiratory syncytial virus; E11.9 Type 2 diabetes mellitus without complications; I10 Essential (primary) hypertension
CPT/HCPCS: 80053; 83880; 85025

== ENCOUNTER → 2022-07-02 00:09 | Outpatient (CLI) | payer MEDICARE, MEDICAID, SELFPAY ==
--- NOTE | 2022-07-02 09:48 | DI.CT_ITS ---
Exam(s) CT CHEST HIGH RESOLUTION EXAM: CT CHEST HIGH RESOLUTION CLINICAL HISTORY: unspecified pulmonary fibrosis, J84.10. TECHNIQUE: Multi planar reconstructions were performed. CONTRAST MATERIAL: None COMPARISON: CR RIGHT FOOT COMPLETE from 11/14/[address] CHEST PE ABD PELVIS W from 09/30/[address] CHEST W from 04/19/2022 CR XR PORTABLE CHEST AP from 04/22/[address] ABDOMEN PELVIS W from 05/14/2022 CR,XR XR CHEST 2V PA LATERAL from 06/13/2022 FINDINGS: CHEST: Imaging somewhat degraded by respiratory motion artifact LUNGS: The amount of interstitial disease appears similar to the prior study of 04/19/2022. However, the high-resolution images also appear to reveal some bilateral ground-glass infiltrates, possibly e xaggerated by motion artifact here. No focal findings in the trachea and mainstem bronchi. There are no pleural effusions evident. MEDIASTINUM: No obvious hilar adenopathy. Small lymph nodes are noted in the mediastinum, similar to previous. No gross lymphadenopathy. Visualized thyroid unremarkable. Also in the subcarinal regio n. Unchanged from 04/19/2022.There is no supraclavicular adenopathy and no significant axillary annamarie opathy. CARDIAC: Mild cardiomegaly. No pericardial effusion. Diameter of the thoracic aorta is upper normal . VISUALIZED UPPER ABDOMEN:Abnormal hypodense areas are again noted in the liver. Small calcifications are noted in the lateral limbs of both adrenal glands but no ominous adrenal masses evident. OSSEOUS: Abnormal appearance of T10 vertebral body again notedthis was not evident on 09/30/2019 but was evident on 04/19/2022.. There is also a healed posteriorly located right 10th rib fracture again evident. IMPRESSION: 1. The amount of bilateral interstitial lung disease exhibits minimal if any significant change from 04/19/2022. However, the high-resolution images also appear to reveal bilateral ground-glass infiltr ates. These may be exaggerated by the respiratory motion artifact here. There are no pleural effusi ons. No new lymphadenopathy. 2. Lowermost images again reveal abnormal hypodense areas in the liver. 3. Lucent area again noted in the T10 vertebral body which was not evident on 09/30/2019 but was evid ent on 04/19/2022. Correlation with recent history recommended. RADIATION DOSE DELIVERED: 954.86mGy.cm Total DLP DATA REPOSITORY: All CT scans at this facility are submitted to the National Radiology Data Registry (NRDR) Dose Index Registry (DIR) with the [employer] (ACR). RADIATION OPTIMIZATION: All CT scans at this facility use at least one of these dose optimization te chniques: automated exposure control; mA and/or kV adjustment per patient size (includes targeted exa ms where dose is matched to clinical indication); or iterative reconstruction.
== END ==
PROVIDERS: PCP Family Medicine; Visit Provider Student in an Organized Health Care Education/Training Program
DX: J84.10 Pulmonary fibrosis, unspecified (principal); J84.89 Other specified interstitial pulmonary diseases; R91.8 Other nonspecific abnormal finding of lung field; K76.89 Other specified diseases of liver
CPT/HCPCS: 71250; 74183

== ENCOUNTER 2022-07-02 00:40 | Outpatient (CLI) | payer MEDICARE, MEDICAID, SELFPAY ==
--- NOTE | 2022-07-02 | DI.MRI_ITS ---
Exam(s) MR ABDOMEN WO/W EXAM: MR ABDOMEN WO/W CLINICAL HISTORY: F/U ABNL MRI, ? NEOPLASM OR INFECTION, R93.89 TECHNIQUE: Multiplanar multisequence MRI of the Abdomen was performed. CONTRAST MATERIAL: IV Contrast: 20 mL of Dotarem contrast administered. COMPARISON: CT CT ABDOMEN PELVIS W from 05/14/2022 FINDINGS: The examination is limited due to patient motion artifact. Liver: There is a mottled signal pattern of the liver mirroring the abnormality seen on the CT scan. The areas of hypodensity on the the CT scan show signal dropout on the opposed phase images. On the n oncontrast T1 weighted images, the area show decreased signal. There is no enhancement on the arteria l images following contrast administration. The hepatic vessels are not displaced. No enhancing mass is identified. Pancreas: Unremarkable. Gallbladder and Bile Ducts: There is a gallstone present. It measures 2.7 cm long. There is no biliar y ductal dilatation. Adrenals: Unremarkable. Kidneys: There is a 5 mm simple cyst in the lower pole of the right kidney. The kidneys are otherwise unremarkable. Spleen: Unremarkable. Bowel: Unremarkable. Aorta: Unremarkable. Soft Tissues: Unremarkable. Bone: Degenerative changes are seen in the lumbar spine with central spinal canal stenosis most marke d at L4-L5. Lymph Nodes: Unremarkable. IMPRESSION: 1. No enhancing hepatic mass is identified. 2. The areas of concern on the CT scan of the abdomen are suggestive of fatty infiltration of the alessandra er. A follow-up MRI in 3 months is recommended for re-evaluation. 3. Cholelithiasis. No biliary ductal dilatation. DATA REPOSITORY:
[2022-07-02] MEDS: Normal Saline - Diluent 50 ML VIAL 25 ML IJ (09:20)
[2022-07-02] MEDS: Gadoterate meglumine 20 ML VIAL IVP (09:21)
== END 2022-07-02 01:00 ==
PROVIDERS: PCP Family Medicine; Visit Provider Nurse Practitioner Gerontology
DX: R93.89 Abnormal findings on diagnostic imaging of other specified body structures (principal); K80.20 Calculus of gallbladder without cholecystitis without obstruction; K76.89 Other specified diseases of liver
CPT/HCPCS: 74183

== ENCOUNTER 2022-07-14 03:18 | Outpatient (CLI) | payer MEDICARE, MEDICAID, SELFPAY ==
--- NOTE | 2022-07-14 15:03 | DI.US_ITS ---
APPROVED REPORT EXAM: Comprehensive 2D, Doppler, and color-flow Echocardiogram Patient Location: Out-Patient Tow Truck Dispatcher: Nguyen López RDCS (AE) Indications: Pulmonary Hypertension, Atrial Fibrillation Other Information Study Quality: Adequate. Technically limited study due to body habitus. Conclusion Technically difficult but adequate study Normal left ventricular wall thickness and chamber size. Estimated ejection fraction is 55%. No seg mental wall motion abnormalities are identified Right ventricular size and function appears normal Left atrium is mildly dilated. Right atrial size is normal Normal aortic valve without stenosis or regurgitation Normal mitral valve with trace regurgitation Normal tricuspid valve with mild regurgitation. Estimated right ventricular systolic pressure is 45 mmHg Dilated ascending aorta measuring 3.73 cm Wall motion Left Ventricle The left ventricle is normal size. The left ventricular systolic function is normal. The left ventric ular ejection fraction is within the normal range. There is normal left ventricular wall thickness. T here is normal LV segmental wall motion. There is no ventricular septal defect visualized. LVEF is 55 %. Right Ventricle Right ventricle is grossly normal in size. Right ventricular systolic function is grossly normal. The RVSP is 45.0 mmHg. Atria Left atrium is mildly dilated. The right atrium size is normal. The interatrial septum is intact with no evidence for an atrial septal defect. Aortic Valve The aortic valve is normal in structure. Aortic valve is trileaflet. There is no aortic valvular sten osis. No aortic regurgitation is present. Mitral Valve The mitral valve is normal in structure. No evidence of mitral valve stenosis. Trace mitral regurgita tion. Tricuspid Valve The tricuspid valve is normal in structure. There is no tricuspid valve stenosis. Mild tricuspid regu rgitation. Pulmonic Valve Pulmonic valve is not well visualized. There is no pulmonic valvular stenosis. There is no pulmonic v alvular regurgitation. Great Vessels The aortic root is normal in size. The ascending aorta is mildly dilated. Aortic arch is normal in ca liber. IVC is normal in size and collapses >50% with inspiration. Pericardium There is no pericardial effusion. 2D Dimensions IVSD d PLAX 0.98 cm F: 0.6-1.0 LV Vol A2C d MOD 72.6 mL LVPW d PLAX 0.98 cm F: 0.6 - 1.0 LV Vol A4C d MOD 85.2 mL LVID d PLAX 4.50 cm F: 3.8 - 5.2 LA vol/ BSA A2C s A-L 30.2 mL/m2 LVDs 3.40 cm F: 2.2 - 3.5 LA Area A2C s MOD 20.33 cm2 Ao Root d 2.57 cm F: 2.7 - 3.3 LV EF A4C MOD 50.8 % RA Area A4C 14.49 cm2 LV EF A2C MOD 50.8 % RA Vol/ BSA A4C s A-L 16.6 mL/m2 LV EF Biplane MOD 51.2 % Ao Asc Diam d 3.73 cm F: 2.3 - 3.1 SV 41.24 mL LV EF Teichholz 48.6 % SV Index 20.59 mL/m2 LVEF (Salmeron's) 51.16 % F: 54 - 74 LV Volume 60.43 mL F: 46 - 106 LV Volume Index 30.21 mL/m2 F: 29 - 61 LV Vol Biplane MOD 80.6 mL FS 24.40 % LV Diastology MV E' lateral 0.093 (>0.1 m/s) E/A Ratio 4.1 LV E/e LAT 11.10 (<14) MV E Vmax 1.03 (0.4-1.3 m/s) MV E/E' lateral 11.12 MV A Vmax 0.25 (0.4-1.3 m/s) MV E/A Ratio 3.76 Aortic Valve LVOT Area 3.00 cm2 AoV Area Vmax 2.60 cm2 LVOT Vmax 1.05 m/s AoV Area/ BSA (Vmax) 1.30 cm2/m2 LVOT Mean Castillo. 0.68 m/s JUNIOR Mean Castillo. 2.55 cm2 LVOT Peak Grad 4.4 mmHg JUNIOR Mean Castillo. Index 1.27 cm2/m2 LVOT Mean Grad 2.2 mmHg LVOT VTI 0.204 m LVOT Diam s 1.95 cm AoV Vmax 1.21 m/s Velocity Ratio 0.87 AoV Mean Castillo. 0.80 m/s AoV Peak Grad 5.8 mmHg LVOT SV 61.14 mL AoV Mean Grad 2.9 mmHg AoV VTI 0.212 m AoV Area VTI 2.88 cm2 AoV Area/ BSA (VTI) 1.44 cm/m2 Mitral Valve MV DT 170 (160-240 msec) MV PHT 49 msec MV Area PHT 4.47 cm2 MV VTI 0.212 m MV Area VTI 2.88 (4.0-6.0 cm2) Pulmonary Valve PV Vmax 1.09 (0.5-1.5 m/s) RVOT Peak Gr. 4.06 mmHg PV Peak Grad 4.8 mmHg RVOT Mean Gr. 2.10 mmHg PV Mean Grad 2.5 mmHg RVOT VTI 0.188 m PV VTI 0.280 m RVOT Vmax 1.01 m/s Tricuspid Valve TR Peak Grad 42.0 mmHg TR Vmax 3.24 m/s RA Pressure 3.00 mmHg RVSP (TR) 45.0 mmHg
== END 2022-07-14 03:38 ==
LOC: DI 03:19
PROVIDERS: PCP Family Medicine; Visit Provider Internal Medicine Cardiovascular Disease
DX: I48.20 Chronic atrial fibrillation, unspecified (principal)
CPT/HCPCS: 93306

== ENCOUNTER 2022-07-21 18:33 | Outpatient (REF) | payer MEDICARE, MEDICAID, SELFPAY ==
[2022-07-21 19:27] LABS: Abs Immature Grans 0.03 10^3/uL (0.0-0.06); Absolute Basophil Count 0.06 10^3/uL (0.0-0.2); Absolute Eosinophil Count 0.27 10^3/uL (0.0-0.7); Absolute Lymphocyte Count 2.18 10^3/uL (1.2-3.4); Absolute Monocyte Count 0.71 10^3/uL (0.1-0.8); Absolute Neutrophil Count 5.89 10^3/uL (1.2-6.7); Basophils % 0.7; HCT 43.8 % (36.0-46.0); HGB 14.6 g/dL (11.2-15.7); Immature Grans % 0.3; Lymphocytes % 23.9; MCH 30.9 pg (27.0-33.0); MCHC 33.3 % (32.0-36.0); MCV 93 fL (80-95); MPV 10.9 fL (8.0-11.0); Monocytes % 7.8; Neutrophils % 64.3; Platelet Count 278 10^3/uL (130-400); RBC 4.73 10^6/uL (3.93-5.22); RDW 14.4 % (11.7-14.6); RDW-SD 48.9 fL; WBC 9.14 10^3/uL (4.4-10.8)
[2022-07-21 19:56] LABS: Hemoglobin A1C 8.8 % (<5.7)
[2022-07-21 20:52] LABS: ALT 35 U/L (14-59); AST 50 U/L (15-37); Anion Gap 10.6 mmol/L (3-11); BUN 30 mg/dL (7-18); CO2 28.4 mmol/L (21.0-32.0); CREATININE 1.1 mg/dL (0.55-1.02); Calcium 9.3 mg/dL (8.5-10.1); Chloride 98 mmol/L (98-107); Estimated GFR 54.39 (mL/min/1.73m2); Glucose 161 mg/dL (74-106); Potassium 3.5 mmol/L (3.5-5.1); Sodium 137 mmol/L (136-145)
[2022-07-21 21:44] LABS: Alkaline Phosphatase 152 U/L (46-116); Ferritin 263 ng/mL (8-252); Total Protein 8.3 g/dL (6.4-8.2); Vitamin B12 954 pg/mL (193-986)
[2022-07-21 22:08] LABS: NT-proBNP 870 pg/mL (<300)
== END 2022-07-21 18:34 | disposition home or self-care (01) ==
LOC: LBN 18:33
PROVIDERS: PCP Family Medicine; Visit Provider Nurse Practitioner Gerontology
DX: E11.65 Type 2 diabetes mellitus with hyperglycemia (principal); R06.02 Shortness of breath
CPT/HCPCS: 80053; 82607; 82728; 83036; 83880; 85025

== ENCOUNTER 2022-07-26 18:09 | Outpatient (REF) | payer MEDICARE, MEDICAID, SELFPAY ==
[2022-07-28 15:27] LABS: Fungitell Qualitative Negative (Negative); Fungitell Quantitative Value 48 pg/mL (<60 pg/mL)
[2022-07-29 14:06] LABS: Blastomyces Ag Result Not Detected; Blastomyces Ag Value Not Detected
== END 2022-07-26 18:10 | disposition home or self-care (01) ==
LOC: LBN 18:09
PROVIDERS: PCP Family Medicine; Visit Provider Student in an Organized Health Care Education/Training Program
DX: J84.10 Pulmonary fibrosis, unspecified (principal)
CPT/HCPCS: 87449; 87385

== ENCOUNTER 2022-10-05 19:42 | Outpatient (REF) | payer MEDICARE, MEDICAID, SELFPAY ==
[2022-10-05 17:53] LABS: Abs Immature Grans 0.02 10^3/uL (0.0-0.06); Absolute Basophil Count 0.05 10^3/uL (0.0-0.2); Absolute Eosinophil Count 0.16 10^3/uL (0.0-0.7); Absolute Lymphocyte Count 1.88 10^3/uL (1.2-3.4); Absolute Monocyte Count 0.76 10^3/uL (0.1-0.8); Basophils % 0.5; Eosinophils % 1.6; HCT 45.1 % (36.0-46.0); HGB 14.7 g/dL (11.2-15.7); Immature Grans % 0.2; Lymphocytes % 19.2; MCH 31.3 pg (27.0-33.0); MCHC 32.6 % (32.0-36.0); MCV 96 fL (80-95); MPV 11.4 fL (8.0-11.0); Monocytes % 7.8; Neutrophils % 70.7; Platelet Count 192 10^3/uL (130-400); RBC 4.69 10^6/uL (3.93-5.22); RDW 14.4 % (11.7-14.6); RDW-SD 50.4 fL; WBC 9.77 10^3/uL (4.4-10.8)
[2022-10-05 18:15] LABS: ALT 48 U/L (14-59); AST 34 U/L (15-37); Albumin 3.7 g/dL (3.4-5.0); Alkaline Phosphatase 108 U/L (46-116); Anion Gap 9.1 mmol/L (3-11); BUN 37 mg/dL (7-18); CO2 30.9 mmol/L (21.0-32.0); CREATININE 1.3 mg/dL (0.55-1.02); Calcium 8.9 mg/dL (8.5-10.1); Chloride 101 mmol/L (98-107); Estimated GFR 44.24 (mL/min/1.73m2); Glucose 154 mg/dL (74-106); NT-proBNP 1038 pg/mL (<300); Potassium 3.9 mmol/L (3.5-5.1); Sodium 141 mmol/L (136-145); Total Protein 6.9 g/dL (6.4-8.2)
== END 2022-10-05 19:43 | disposition home or self-care (01) ==
LOC: LBN 19:42
PROVIDERS: PCP Family Medicine; Visit Provider Nurse Practitioner Gerontology
DX: R68.89 Other general symptoms and signs (principal)
CPT/HCPCS: 80053; 83880; 84146; 85025

== ENCOUNTER 2022-10-08 09:28 | Inpatient (IN) | payer MEDICARE, MEDICAID, SELFPAY ==
[2022-10-08] VITALS (69 sets, daily range): BP systolic 92–150; BP diastolic 49–91; PULSE 62–97; RESP 4–35; TEMP 36.8–38.6; O2SAT 90–98
--- NOTE | 2022-10-08 09:30 | RT.EKG_ITS ---
APPROVED REPORT Exam: Resting ECG Reason for Exam: CHF Exacerbation Patient Location: E HR:78 bpm ECG Measurements Heart Rate 78 AXIS IA [id number] P [id number] QRSd 80 QRS 43 QT 383 T 184 QTc 436 Conclusion Atrial fibrillation Repol abnrm diffuse leads...ST-T neg, ant/lat/inf
--- NOTE | 2022-10-08 10:14 | DI.RAD_ITS ---
Exam(s) XR PORTABLE CHEST AP EXAM: XR PORTABLE CHEST AP CLINICAL HISTORY: Shortness of breath TECHNIQUE: 2D digital imaging was performed. COMPARISON: CR,XR XR CHEST 2V PA LATERAL from 06/13/[address] CHEST HIGH RESOLUTION from 07/02/2022 FINDINGS: Exam is limited by patient body habitus and poor pulmonary inflation is well as mild respiratory jose manuel on. Leads overlie the chest. LUNGS: Diffuse interstitial changes. No focal consolidation. No pleural abnormality seen. HEART: Mildly enlarged. Mild vascular prominence. AORTA: Normal diameter. BONES: Unremarkable for age. Soft tissues: Unremarkable. IMPRESSION: Cardiomegaly and interstitial changes. No superimposed consolidation. Mild pulmonary edema not excl uded DATA REPOSITORY: RADIATION DOSE DELIVERED:
--- NOTE | 2022-10-08 10:26 | W.ED.GENAD ---
Discharge Plan Disposition Patient Disposition: Home Discharge Details Clinical Impression: CHF (congestive heart failure), Bilateral lower leg cellulitis, Atrial fibrillation Primary Care Provider: Tamika Frias ED Provider: Dennis Hernandez Discharge Data Discharge Date/Time-TO BE ENTERED AT DEPARTURE: 10/08/22 16:16 Medical Decision Making Patient presenting via ambulance from the [facility] and rehab facility for increasing shortness of breath difficulty breathing. Patient has significant history of CHF and A-fib but over the past couple days has noticed worsening shortness of breath with white sputum. Patient denies any pain or discomfort. Review of systems though is limited by patient's communication ability due to hearing deficiency. Physical exam shows audible expiratory wheezing and diminished lung sounds throughout, normal cardiac sounds that are noted to be slightly irregular, lower extremity bilateral edema that per [facility] is at baseline 1-2+ pitting. We will plan on performing EKG, chest x-ray, and labs. Pending results we will give patient furosemide and DuoNeb. Please see physician interpretation for full interpretation of EKG but patient does appear to be in A-fib, with controlled rate of 78, patient does have inverted T waves in V3 4 and 5 with otherwise EKG appearing near baseline. We will continue to monitor. Pending labs did review portable chest x-ray which did show cardiomegaly and interstitial changes with mild pulmonary edema being a possibility. No focal infiltrate was noted by radiologist. Reviewed patient's labs and patient's CBC is unremarkable nondiagnostic with no leukocytosis or severe anemia, CMP is near patient's baseline but of note BUN is elevated at 36, creatinine 1.4 with a GFR 40 and this is at patient's baseline, total bilirubin is slightly elevated at 1.1 with again slight elevation of AST negative initial troponin, all other CMP findings are within normal range. BNP though is elevated at 1515. On review of patient's old labs she is typically noted to be around 800-1000. This is consistent with patient having CHF exacerbation. We will give additional Lasix. Patient did have some improvement of breath sounds but will give further DuoNeb due to continued wheezing. Patient's second troponin also came back negative. We will have staff midwife/apprenticeship director attempt to place patient in wheelchair to see how she does to help determine if patient is severely weak with need of admission or outpatient increase of torsemide for the next 2 days. Patient was significantly weak and we were not able to get patient up in the wheelchair due to her significant weakness. Did also realize that patient is maxed out on her daily p.o. torsemide. Given this did contact hospitalist who agreed to admit patient for further diuresis and consideration of pulmonology consult. Medical Records Medical records reviewed: Yes I reviewed the patient's medical records. Medical records narrative: Reviewed records sent by [facility] rehab Imaging Data Radiologic Study: Attestation: I personally reviewed and interpreted this imaging study as follows: Imaging: X-Ray Radiologist's impression: Exam(s) XR PORTABLE CHEST AP EXAM: XR PORTABLE CHEST AP CLINICAL HISTORY: Shortness of breath TECHNIQUE: 2D digital imaging was performed. COMPARISON: CR,XR XR CHEST 2V PA LATERAL from 06/13/[address] CHEST HIGH RESOLUTION from 07/02/2022 FINDINGS: Exam is limited by patient body habitus and poor pulmonary inflation is well as mild respiratory motion. Leads overlie the chest. LUNGS: Diffuse interstitial changes. No focal consolidation. No pleural abnormality seen. HEART: Mildly enlarged. Mild vascular prominence. AORTA: Normal diameter. BONES: Unremarkable for age. Soft tissues: Unremarkable. IMPRESSION: Cardiomegaly and interstitial changes. No superimposed consolidation. Mild pulmonary edema not excluded Lab Data Lab results reviewed: Yes I reviewed the patient's lab results. HPI General Mode of arrival: EMS. Date/Time Provider Initiated Documentation: 10/08/22 09:40. Limitations to Documentation: physical limitation. Information obtained by: patient, RN notes reviewed and old records reviewed. History of Present Illness 72 year old F presents to the emergency department with the chief complaint of Shortness of breath, described as moderate and similar to prior episodes, Patient started experiencing this day(s) (2) and it has been constant. No relieving factors improve symptom(s), No exacerbating factors reported . Patient notes no other symptoms.. Patient did receive the following treatments prior to arrival, none Related Data Home Medications Medication Instructions Recorded Confirmed insulin syringe needleless 1 mL #120 SYRGS 04/10/18 08/30/22 (BD Insulin Syringe Slip Tip) pen needle, diabetic 30 gauge x ##300 04/10/18 08/30/22 5/16 (Pen Needle) blood-glucose meter #1 ea 05/07/19 02/20/23 blood sugar diagnostic (Blood #400 ea 11/29/18 08/30/22 Glucose Test strips) lancets 28 gauge #400 ea 11/29/18 08/30/22 acetaminophen 325 mg tablet 650 mg PO BID PRN 08/26/20 10/08/22 (Tylenol) calcium carbonate 600 mg-vitamin 1 tab PO BID 08/26/20 10/08/22 D3 10 mcg (400 unit) tablet (Calcium 600 + D(3)) ropinirole 2 mg tablet 4 mg PO HS 08/26/20 10/08/22 apixaban 5 mg tablet (Eliquis) 5 mg PO BID 10/07/20 10/08/22 benzonatate 100 mg capsule 100 mg PO BID 10/07/20 10/08/22 albuterol sulfate 90 mcg/actuation 2 puff inhalation QID 03/06/21 10/08/22 aerosol inhaler bisacodyl 10 mg rectal suppository 10 mg MS PRN PRN 03/06/21 10/08/22 (Dulcolax (bisacodyl)) fluticasone propionate 50 2 spray intranasal BID 03/06/21 10/08/22 mcg/actuation nasal spray,suspension (Flonase Allergy Relief) loperamide 2 mg capsule See Rx Instructions .Route .COMPLEX 03/06/21 10/08/22 metoprolol succinate 50 mg 50 mg PO DAILY 03/06/21 10/08/22 tablet,extended release 24 hr insulin glargine 100 unit/mL (3 77 unit subcut BID 02/23/22 10/08/22 mL) subcutaneous pen (Lantus Solostar U-100 Insulin) montelukast 10 mg tablet 10 mg PO DAILY 02/23/22 10/08/22 nitroglycerin 0.4 mg sublingual 0.4 mg sublingual Q5M PRN 02/23/22 10/08/22 tablet polyethylene glycol 3350 17 17 g PO .every other day PRN 02/23/22 10/08/22 gram/dose oral powder (Miralax) Lactobacillus acidophilus 1 tab PO DAILY 04/22/22 10/08/22 atorvastatin 40 mg tablet 40 mg PO DAILY 04/22/22 10/08/22 fluoxetine 10 mg capsule 10 mg PO DAILY 04/22/22 10/08/22 omeprazole 20 mg capsule,delayed 20 mg PO DAILY 04/22/22 10/08/22 release insulin lispro 100 unit/mL 23 unit subcut AC 05/18/22 10/08/22 subcutaneous solution (Humalog U-100 Insulin) torsemide 100 mg tablet 100 mg PO BID 05/18/22 10/08/22 aluminum hydroxide 0.275 % topical 1 applic topical BID 05/25/22 10/08/22 ointment (Dermagran (aluminum hydroxide)) diclofenac sodium 1 % topical gel 2 g topical BID PRN 05/25/22 10/08/22 hydrocortisone 2.5 % topical cream 1 applic topical DAILY PRN 05/25/22 08/30/22 vitamin B complex (Vitamins B 1 tab PO DAILY 05/25/22 10/08/22 Complex tablet) acetaminophen 300 mg-codeine 30 mg 1 tab PO Q8H PRN 06/13/22 08/30/22 tablet fluticasone fur. 100 mcg-umeclid 1 inh inhalation DAILY 06/13/22 10/08/22 62.5 mcg-vilant 25 mcg inhalat.powder (Trelegy Ellipta) magnesium oxide 400 mg PO DAILY 06/13/22 10/08/22 prednisone 10 mg tablet 10 mg PO DIRECTED #39 tabs 07/30/22 08/30/22 dextromethorphan-guaifenesin 10 10 ml PO .4xday PRN 08/23/22 10/08/22 mg-100 mg/5 mL oral liquid (Diabetic Tussin DM) docusate sodium 100 mg capsule 100 mg PO QHS 08/23/22 10/08/22 ipratropium 0.5 mg-albuterol 3 mg 3 ml inhalation BID PRN 08/23/22 10/08/22 (2.5 mg base)/3 mL nebulization soln levothyroxine 75 mcg capsule 75 mcg PO HS 08/23/22 10/08/22 menthol 7.6 mg lozenges ([place] 7.6 mg mucous membrane Q2H PRN 08/23/22 10/08/22 Cough Drops) ropinirole 3 mg tablet 3 mg PO QHS 08/23/22 08/30/22 prednisone 10 mg tablet 10 mg PO DIRECTED #64 tabs 08/30/22 10/08/22 Previous Rx's Medication Instructions Recorded insulin syringe needleless 1 mL #120 SYRGS 04/10/18 (BD Insulin Syringe Slip Tip) pen needle, diabetic 30 gauge x ##300 04/10/1811/23 (Pen Needle) blood-glucose meter #1 ea 11/14/18 blood sugar diagnostic (Blood #400 ea 11/29/18 Glucose Test strips) lancets 28 gauge #400 ea 11/29/18 prednisone 10 mg tablet 10 mg PO DIRECTED #39 tabs 07/30/22 prednisone 10 mg tablet 10 mg PO DIRECTED #64 tabs 08/30/22 Allergies Allergy/AdvReac Type Severity Reaction Status Date / Time No Known Allergies Allergy Verified 10/08/22 09:37 General Stated Complaint: RespSymp JOLEEN: 3 Review of Systems Narrative: Review of systems limited by patient's hearing impairment. Reviewed nursing notes from health and rehab facility Constitutional Constitutional: Denies chills and Denies fever(s) Cardiovascular Cardiovascular: Denies chest pain and Reports dyspnea Respiratory Respiratory: Reports cough and Reports dyspnea Gastrointestinal Gastrointestinal: Denies abdominal pain PFSH All Active Problems (Updated 10/08/22 @ 19:44 by Willem Stone MD) Acute on chronic heart failure with preserved ejection fraction (HFpEF) (Acute) Acute febrile illness (Acute) Chronic kidney disease (Chronic) CHF (congestive heart failure) (Chronic) Interstitial pneumonia with autoimmune features (Acute) Total avulsion of nail plate (Acute) Onycholysis (Acute) Fall (Acute) Contusion of left hip (Acute) Abrasion of right knee (Acute) 2+ pitting edema (Acute) Fluid overload, unspecified (Acute) Mixed conductive and sensorineural hearing loss, unspecified (Acute) Otosclerosis of both ears (Acute) Diaphoresis (Acute) Pneumonia (Acute) CAP (community acquired pneumonia) (Acute) Encounter for competency evaluation (Acute) Periprosthetic hip fracture (Acute) Left hip Acute pain of left hip (Acute) Hypokalemia (Acute) Atherosclerotic peripheral vascular disease of extremity (Acute) UTI (urinary tract infection) (Acute) Charcot's joint, left ankle and foot (Acute ~04/2019) Hypomagnesemia (Acute) DVT prophylaxis (Acute) Discharge planning issues (Acute) Uncontrolled diabetes mellitus (Acute) Fungal dermatitis (Acute) Cellulitis of breast (Acute) Cataract (Acute) Cellulitis of lower extremity (Acute 10/31/14) Closed fracture of ankle (Acute) History of Achilles tendon repair (Acute) History of surgical procedure (Acute) Hypothyroidism (Chronic 01/09/13) Perforation of intestine (Acute) Vitamin D deficiency (Chronic 05/07/15) Type 2 diabetes mellitus with diabetic neuropathy (Chronic 05/13/15) SEEN ENDOCRINE AT [facility] Transient ischemic attack (Chronic) Sensorineural hearing loss, bilateral (Chronic 05/24/17) Sciatica (Chronic) right; xray from 02/10 showed scattered spondylosis ant L4-5 on the left and mid lumbar scoliosis convex to the right Pulmonary hypertension (Chronic 04/13/17) Polycythemia (Chronic 03/08/17) Otosclerosis (Chronic 10/14/14) Osteoarthritis (Chronic) right shoulder AC-DJD, Glenohumoral jt. 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 right worse than left Morbid obesity (Chronic) Hyperlipidemia (Chronic) Hypertension (Chronic) Depression (Chronic) Hypothyroidism (Chronic) Restless legs syndrome (Chronic) Sleep apnea with use of continuous positive airway pressure (CPAP) (Chronic) Venous stasis (Chronic) History of tobacco use (Chronic) a. quit in 1995 after approximately 30 pack years H/O fracture of ankle (Chronic) s. Left ankle 2011 Insomnia (Chronic) Hearing loss (Chronic) Left knee DJD (Chronic) DJD of shoulder (Chronic) a. on right Arthritis (Chronic) Toe gangrene (Chronic) Atrial fibrillation (Chronic) Pulmonary hypertension due to sleep-disordered breathing (Chronic) Amputated toe of right foot (Chronic) Medical History Palliative care encounter Pulmonary fibrosis Surgical History Amputation RIGHT SECOND AND THIRD TOES DUE TO DIABETIC ULCERS WITH CELLULITIS;11/14/17 DR. MAI Colonoscopy - MAC (~2003) Extraction of cataract 04/15/17 DR. ARRIETA; LEFT EYE 04/29/17 DR. ARRIETA; RIGHT EYE PROCEDURES REPAIR OF INTESTINE NEC puncture during colonoscopy ACHILLOTENOTOMY L Achilles tendon repair Family History Mother Neoplasm LUNG Father Heart disease Brother Heart disease Sister No problems noted. Grandfather Heart disease Grandfather Heart disease Grandmother Diabetes Grandmother Diabetes Sister No problems noted. Sister No problems noted. Sister Diabetes Sister No problems noted. Brother No problems noted. Brother No problems noted. Social History Smoking/Tobacco Use Status: Former Tobacco Use Smoking risk assessment performed?: Yes Alcohol Intake: never Drug use: Never Substance use type: does not use current occupation: [employer] @ [employer] Current gender identity: female Do you feel safe at home: Yes Do you feel safe in your relationship?: Yes Exam Const General: cooperative, no acute distress and not ill appearing Orientation: alert, awake and oriented x3 HENMT Mouth: moist mucous membranes Resp Effort & Inspection: normal respiratory effort, able to speak in complete sentences and no respiratory distress Auscultation: diminished lung sounds bilaterally and wheezes expiratory wheezes Cardio Rate: regular rate Rhythm: abnormal rhythm irregularly irregular Heart Sounds: S1 normal and S2 normal Skin General skin exam: no rashes or lesions noted Neuro General: patient alert, patient awake, patient oriented x3, moves all extremities and no focal motor deficits Sensory Exam: no sensory deficits noted Course Vital Signs Vital signs: Vital Signs Temperature 37.3 C 10/08/22 09:32 Pulse 86 10/08/22 09:32 Respiratory Rate 22 10/08/22 09:32 Blood Pressure 140/57 L 10/08/22 09:32 Pulse Oximetry 93 10/08/22 09:32 Temperature 37.3 C 10/08/22 09:32 Temperature Source Temporal Artery Scan 10/08/22 09:32 Pulse 86 10/08/22 09:32 Respiratory Rate 22 10/08/22 09:32 Respiratory Effort Short of Breath 10/08/22 09:34 Respiratory Depth Shallow 10/08/22 09:34 Blood Pressure 140/57 L 10/08/22 09:32 Blood Pressure Position Sitting 10/08/22 09:32 Pulse Oximetry 93 10/08/22 09:32 Oxygen Delivery Method Room Air 10/08/22 09:32 Oxygen Flow Rate 0 10/08/22 09:32 Pain Level 0 10/08/22 09:32
[2022-10-08 10:39] LABS: Abs Immature Grans 0.05 10^3/uL (0.0-0.06); Absolute Basophil Count 0.03 10^3/uL (0.0-0.2); Absolute Eosinophil Count 0.04 10^3/uL (0.0-0.7); Absolute Lymphocyte Count 0.55 10^3/uL (1.2-3.4); Absolute Monocyte Count 0.36 10^3/uL (0.1-0.8); Absolute Neutrophil Count 8.56 10^3/uL (1.2-6.7); Basophils % 0.3; Eosinophils % 0.4; HGB 15.5 g/dL (11.2-15.7); Immature Grans % 0.5; Lymphocytes % 5.7; MCH 30.8 pg (27.0-33.0); MCHC 32.3 % (32.0-36.0); MCV 95 fL (80-95); MPV 10.9 fL (8.0-11.0); Monocytes % 3.8; Neutrophils % 89.3; Platelet Count 163 10^3/uL (130-400); RBC 5.04 10^6/uL (3.93-5.22); RDW 14.5 % (11.7-14.6); RDW-SD 50.5 fL; WBC 9.59 10^3/uL (4.4-10.8)
[2022-10-08] MEDS: Furosemide 40 MG/4 ML VIAL IVP ×2 (10:42→12:05)
[2022-10-08 11:19] LABS: COVID-19 PCR Negative (Negative); Influenza A PCR Negative (Negative); Influenza B PCR Negative (Negative); RSV PCR Negative (Negative)
[2022-10-08 11:26] LABS: ALT 47 U/L (14-59); AST 38 U/L (15-37); Albumin 3.5 g/dL (3.4-5.0); Alkaline Phosphatase 96 U/L (46-116); Anion Gap 6.3 mmol/L (3-11); BUN 36 mg/dL (7-18); Bilirubin, Total 1.1 mg/dL (0.2-1.0); CO2 33.7 mmol/L (21.0-32.0); CREATININE 1.4 mg/dL (0.55-1.02); Calcium 8.9 mg/dL (8.5-10.1); Chloride 100 mmol/L (98-107); Estimated GFR 40.47 (mL/min/1.73m2); Glucose 79 mg/dL (74-106); Magnesium 1.8 mg/dL (1.8-2.4); NT-proBNP 1515 pg/mL (<300); Potassium 3.5 mmol/L (3.5-5.1); Sodium 140 mmol/L (136-145); Total Protein 7.4 g/dL (6.4-8.2); Troponin I < 50 ng/L (<or=60)
[2022-10-08 11:38] LABS: Source Nasopharynx
[2022-10-08 13:36] LABS: Troponin I < 50 ng/L (<or=60)
--- NOTE | 2022-10-08 16:02 | HPE_ITS ---
Date of service: 10/08/22 Time of Service: 16:02 Assessment and Plan Assessment and plan (1) Acute febrile illness: Status: Acute Assessment and plan: patient was not febrile on presentation but developed fever after admission. No leukocytosis on admission but w/ elevated procalcitonin and CRP. Multiple etiologies including pneumonitis, cellulitis, UTI. Will soto culture, treat w/ cefepime and doxycycline which should cover most respiratory pathogens, cellulitis and most UTI. Antibiotic spectrum can be tapered once pathogens are identified. Patient has loose BM after admission; not watery but was unformed. Will check C diff although I have not ordered Flagyl yet. (2) Acute on chronic heart failure with preserved ejection fraction (HFpEF): Status: Acute Assessment and plan: clinically presented like CHF exacerbation. Her lung pocus demonstrated diffuse bilateral B lines worse at bases than apex, this is consistent w/ CHF however she also has underlying ILD which can give interstitial pattern of B lines. I did not see any pleural effusions. I will diurese her overnight w/ goal of net negative 1.5 to 2 liters as long as her BP tolerates. I have added supplemental potasssim as her potassium was only 3.5. osorio ordered for accurate intake/output and for patient comfort while on iv lasix. Her last echo was from 07/14/22 and demonstrated the following: Conclusion Technically difficult but adequate study Normal left ventricular wall thickness and chamber size.? Estimated ejection fraction is 55%.? No segmental wall motion abnormalities are identified Right ventricular size and function appears normal Left atrium is mildly dilated.? Right atrial size is normal Normal aortic valve without stenosis or regurgitation Normal mitral valve with trace regurgitation Normal tricuspid valve with mild regurgitation.? Estimated right ventricular systolic pressure is 45 mmHg Dilated ascending aorta measuring 3.73 cm (3) Interstitial pneumonia with autoimmune features: Status: Acute Assessment and plan: will resume higher dose prednisone for her ILD while she is treated for empirically for pneumonia; continue DuoNeb for her bronchospasm although these may be cardiac wheezes. (4) Pulmonary hypertension: Status: Chronic Assessment and plan: likely d/t her KELLEY; I have ordered BIPAP for her. (5) Bilateral lower leg cellulitis: Status: Chronic Assessment and plan: probably chronic from her edema; will treat w/ doxycycline and cefepime as per treatment for pneumonia (6) Type 2 diabetes mellitus with diabetic neuropathy: Status: Chronic Assessment and plan: continue her basal lantus dose. I have put her on moderate dose sliding scale along w/ CHO coverage. Qualifiers: Diabetes mellitus long-term insulin use: with continuous churn buttermaker use Qualified Code(s): E11.40 - Type 2 diabetes mellitus with diabetic neuropathy, unspecified; Z79.4 - CHCF (current) use of insulin (7) Chronic kidney disease: Status: Chronic Assessment and plan: she appears to be at her baseline BUN and creatinine levels; will monitor urine output and daily BMP (8) Atrial fibrillation: Status: Chronic Assessment and plan: chronic and she is anticoagulated w/ apixaban; rate is reasonably controlled on Toprol XL, but if she has been having intermittent rapid rates then this would contribute to her CHF exacerbation (9) Essential hypertension: Status: Chronic Assessment and plan: continue home meds Toprol XL; torsemide po replaced w/ iv lasix; consider use of JESSIE-I or ARB for her CHF, but I would wait until she has been diuresed first. (10) Depressive disorder: Status: Chronic Assessment and plan: cont. home dose of prozac (11) DVT prophylaxis: Status: Acute Assessment and plan: on apixaban for afib (12) Discharge planning issues: Status: Acute Assessment and plan: she is DNR/DNI code status; she will return to [facility] once medical conditions have been stabilized History of Present Illness History of Present Illness Chief Complaint: dyspnea Narrative: 72 yr old female w/ PMH of type II DM w/ complications including PAD, CKD, diabetic peripheral neuropathy, Charcot arthropathy, chronic afib (on Eliquis), HFPEF, HTN, KELLEY (on CPAP) and ILD. She has just been coming off a slow taper of prednisone (seen Dr. Jones in pulmonary clinic for ILD and interstitial pneumonitis) and was on 5 week taper of prednisone (beginning at 40 mg/day and ending at 5 mg/d) who has had progressive dyspnea and weakness over past few weeks but worse in the past few days. Associated w/ nonproductive cough, but no fever or rigors. She has chronic bilateral leg edema and is chronically on torsemide 100 mg bid. Evaluation by E.D. personnel included routine labs (CMP, CBC, troponin I x 2 sets, pro-BNP), EKG and CXR. She was given DuoNeb x 2 and after her labs and CXR, Dennis Hernandez, concluded that she was having an exacerbation of her chronic HFPEF. Her troponin I was normal x 2. BNP was elevated at 1515 (her prior baseline has been around 1000. EKG atrial fibrillation @ 78 bpm w/ repolarization ST-T depression consistent w/ LVH and similar to prior EKG from 04/22/22. CBC was normal and her CMP demonstrated normal electrolytes, LFT's but CKD w/ BUN 36 and creatinine 1.4 (which is pretty much her baseline). CXR demonstrated mild cardiomegaly and chronic interstitial lung changes similar to prior CXR. Patient was given lasix 80 mg IVP in addition to her two DuoNeb treatments. She is now admitted for treatment of her acute on chronic CHF; however, I suspect she may have exacerbation of her ILD. After arrival to med/surg, patient had fever of 38.6 C and CRP and procalcitonin both came back elevated, CRP 3.35 and procalcitonin 0.2. Blood cultures, sputum culture, urine legionella antigen, urine strep antigen have been ordered. Will cover her w/ cefepime and doxycycline for pneumonia. Also she has chronic bilateral erythema of her lower legs and may well have cellulitis from chronic leg edema. Review of Systems Unobtainable due to (secondary to deafness; some hx obtain thru writing) PFSH All Active Problems (Updated 10/08/22 @ 19:44 by Willem Stone MD) Acute on chronic heart failure with preserved ejection fraction (HFpEF) (Acute) Acute febrile illness (Acute) Chronic kidney disease (Chronic) CHF (congestive heart failure) (Chronic) Interstitial pneumonia with autoimmune features (Acute) Total avulsion of nail plate (Acute) Onycholysis (Acute) Fall (Acute) Contusion of left hip (Acute) Abrasion of right knee (Acute) 2+ pitting edema (Acute) Fluid overload, unspecified (Acute) Mixed conductive and sensorineural hearing loss, unspecified (Acute) Otosclerosis of both ears (Acute) Diaphoresis (Acute) Pneumonia (Acute) CAP (community acquired pneumonia) (Acute) Encounter for competency evaluation (Acute) Periprosthetic hip fracture (Acute) Left hip Acute pain of left hip (Acute) Hypokalemia (Acute) Atherosclerotic peripheral vascular disease of extremity (Acute) UTI (urinary tract infection) (Acute) Charcot's joint, left ankle and foot (Acute ~04/2019) Hypomagnesemia (Acute) DVT prophylaxis (Acute) Discharge planning issues (Acute) Uncontrolled diabetes mellitus (Acute) Fungal dermatitis (Acute) Cellulitis of breast (Acute) Cataract (Acute) Cellulitis of lower extremity (Acute 10/31/14) Closed fracture of ankle (Acute) History of Achilles tendon repair (Acute) History of surgical procedure (Acute) Hypothyroidism (Chronic 01/09/13) Perforation of intestine (Acute) Vitamin D deficiency (Chronic 05/07/15) Type 2 diabetes mellitus with diabetic neuropathy (Chronic 05/13/15) SEEN ENDOCR[place] [facility] [place] Transient ischemic attack (Chronic) Sensorineural hearing loss, bilateral (Chronic 05/24/17) Sciatica (Chronic) right; xray from 02/10 showed scattered spondylosis ant L4-5 on the left and mid lumbar scoliosis convex to the right Pulmonary hypertension (Chronic 04/13/17) Polycythemia (Chronic 03/08/17) Otosclerosis (Chronic 10/14/14) Osteoarthritis (Chronic) right shoulder AC-DJD, Glenohumoral jt. 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 right worse than left Morbid obesity (Chronic) Hyperlipidemia (Chronic) Hypertension (Chronic) Depression (Chronic) Hypothyroidism (Chronic) Restless legs syndrome (Chronic) Sleep apnea with use of continuous positive airway pressure (CPAP) (Chronic) Venous stasis (Chronic) History of tobacco use (Chronic) a. quit in 1995 after approximately 30 pack years H/O fracture of ankle (Chronic) s. Left ankle 2012 Insomnia (Chronic) Hearing loss (Chronic) Left knee DJD (Chronic) DJD of shoulder (Chronic) a. on right Arthritis (Chronic) Toe gangrene (Chronic) Atrial fibrillation (Chronic) Pulmonary hypertension due to sleep-disordered breathing (Chronic) Amputated toe of right foot (Chronic) Medical History Palliative care encounter Pulmonary fibrosis Surgical History Amputation RIGHT SECOND AND THIRD TOES DUE TO DIABETIC ULCERS WITH CELLULITIS;11/14/17 DR. MAI Colonoscopy - MAC (~2003) Extraction of cataract 04/15/17 DR. ARRIETA; LEFT EYE 04/29/17 DR. ARRIETA; RIGHT EYE PROCEDURES REPAIR OF INTESTINE NEC puncture during colonoscopy ACHILLOTENOTOMY L Achilles tendon repair Family History Mother Neoplasm LUNG Father Heart disease Brother Heart disease Sister No problems noted. Grandfather Heart disease Grandfather Heart disease Grandmother Diabetes Grandmother Diabetes Sister No problems noted. Sister No problems noted. Sister Diabetes Sister No problems noted. Brother No problems noted. Brother No problems noted. Social History Smoking/Tobacco Use Status: Former Tobacco Use Smoking risk assessment performed?: Yes Alcohol Intake: never Drug use: Never Substance use type: does not use current occupation: [id number] @ [employer] Current gender identity: female Do you feel safe at home: Yes Do you feel safe in your relationship?: Yes Meds Allergies and Home Medications Allergies Allergy/AdvReac Type Severity Reaction Status Date / Time No Known Allergies Allergy Verified 10/08/22 09:37 Home Medications Medication Instructions Recorded Confirmed Type insulin syringe needleless 1 mL #120 SYRGS 04/10/18 08/30/22 Rx (BD Insulin Syringe Slip Tip) pen needle, diabetic 30 gauge x ##300 04/10/18 08/30/22 Rx 11/23 (Pen Needle) blood-glucose meter #1 ea 11/14/18 08/30/22 Rx blood sugar diagnostic (Blood #400 ea 11/29/18 08/30/22 Rx Glucose Test strips) lancets 28 gauge #400 ea 11/29/18 08/30/22 Rx acetaminophen 325 mg tablet 650 mg PO BID PRN 08/26/20 10/08/22 History (Tylenol) calcium carbonate 600 mg-vitamin 1 tab PO BID 08/26/20 10/08/22 History D3 10 mcg (400 unit) tablet (Calcium 600 + D(3)) ropinirole 2 mg tablet 4 mg PO HS 08/26/20 10/08/22 History apixaban 5 mg tablet (Eliquis) 5 mg PO BID 10/07/20 10/08/22 History benzonatate 100 mg capsule 100 mg PO BID 10/07/20 10/08/22 History albuterol sulfate 90 mcg/actuation 2 puff inhalation QID 03/06/21 10/08/22 History aerosol inhaler bisacodyl 10 mg rectal suppository 10 mg OR PRN PRN 03/06/21 10/08/22 History (Dulcolax (bisacodyl)) fluticasone propionate 50 2 spray intranasal BID 03/06/21 10/08/22 History mcg/actuation nasal spray,suspension (Flonase Allergy Relief) loperamide 2 mg capsule See Rx Instructions .Route .COMPLEX 03/06/21 10/08/22 History metoprolol succinate 50 mg 50 mg PO DAILY 03/06/21 10/08/22 History tablet,extended release 24 hr insulin glargine 100 unit/mL (3 77 unit subcut BID 02/23/22 10/08/22 History mL) subcutaneous pen (Lantus Solostar U-100 Insulin) montelukast 10 mg tablet 10 mg PO DAILY 02/23/22 10/08/22 History nitroglycerin 0.4 mg sublingual 0.4 mg sublingual Q5M PRN 02/23/22 10/08/22 Hi story tablet polyethylene glycol 3350 17 17 g PO .every other day PRN 02/23/22 10/08/22 Histo ry gram/dose oral powder (Miralax) Lactobacillus acidophilus 1 tab PO DAILY 04/22/22 10/08/22 History atorvastatin 40 mg tablet 40 mg PO DAILY 04/22/22 10/08/22 History fluoxetine 10 mg capsule 10 mg PO DAILY 04/22/22 10/08/22 History omeprazole 20 mg capsule,delayed 20 mg PO DAILY 04/22/22 10/08/22 History release insulin lispro 100 unit/mL 23 unit subcut AC 05/18/22 10/08/22 History subcutaneous solution (Humalog U-100 Insulin) torsemide 100 mg tablet 100 mg PO BID 05/18/22 10/08/22 History aluminum hydroxide 0.275 % topical 1 applic topical BID 05/25/22 10/08/22 History ointment (Dermagran (aluminum hydroxide)) diclofenac sodium 1 % topical gel 2 g topical BID PRN 05/25/22 10/08/22 History hydrocortisone 2.5 % topical cream 1 applic topical DAILY PRN 05/25/22 08/30/22 History vitamin B complex (Vitamins B 1 tab PO DAILY 05/25/22 10/08/22 History Complex tablet) acetaminophen 300 mg-codeine 30 mg 1 tab PO Q8H PRN 06/13/22 08/30/22 History tablet fluticasone fur. 100 mcg-umeclid 1 inh inhalation DAILY 06/13/22 10/08/22 History 62.5 mcg-vilant 25 mcg inhalat.powder (Trelegy Ellipta) magnesium oxide 400 mg PO DAILY 06/13/22 10/08/22 History prednisone 10 mg tablet 10 mg PO DIRECTED #39 tabs 07/30/22 08/30/22 Rx dextromethorphan-guaifenesin 10 10 ml PO .4xday PRN 08/23/22 10/08/22 History mg-100 mg/5 mL oral liquid (Diabetic Tussin DM) docusate sodium 100 mg capsule 100 mg PO QHS 08/23/22 10/08/22 History ipratropium 0.5 mg-albuterol 3 mg 3 ml inhalation BID PRN 08/23/22 10/08/22 History (2.5 mg base)/3 mL nebulization soln levothyroxine 75 mcg capsule 75 mcg PO HS 08/23/22 10/08/22 History menthol 7.6 mg lozenges ([place] 7.6 mg mucous membrane Q2H PRN 08/23/22 10/08/22 History Cough Drops) ropinirole 3 mg tablet 3 mg PO QHS 08/23/22 08/30/22 History prednisone 10 mg tablet 10 mg PO DIRECTED #64 tabs 08/30/22 10/08/22 Rx Exam Narrative Exam Narrative: Morbidly obese female who is extremely deaf but we were able to communicate through using awake for writing messages. She is moderately dyspneic with a conversation. HEENT plethoric appearance to her face. oropharynx: edentulous, no exudates; PERRLA/EOMI Neck: obese, difficult to discern JVD; normal but irregular pulses Lungs: diffuse bilateral expiratory audible wheezing; not improved after Duoneb treatment Heart: regular; distant heart tones; irregularly irregular Abdomen: obese, soft, nontender Legs: 2+ pitting bilateral edema from ankles to below knees, bilateral erythema over pretibial surfaces; skin feels warm Pedal pulses present but weak; no acral cyanosis Neuro: alert/oriented to person/place; moves all 4's, no facial asymmetry; no dysarthric speech Results Labs 10/08/22 10:25 10/08/22 10:50 Labs: Laboratory Results - last 24 hr 10/08/22 10/08/22 10/08/22 10:25 10:25 10:25 WBC 9.59 RBC 5.04 Hgb 15.5 Hct 48.0 H MCV 95 MCH 30.8 MCHC 32.3 RDW 14.5 Plt Count 163 MPV 10.9 Immature Gran % 0.5 Neutrophils % 89.3 Lymphocytes % 5.7 Monocytes % 3.8 Eosinophils % 0.4 Basophils % 0.3 Nucleated RBC % 0.0 Absolute Neutrophils 8.56 H Absolute Lymphocytes 0.55 L Absolute Monocytes 0.36 Absolute Eosinophils 0.04 Absolute Basophils 0.03 Sodium Cancelled Potassium Cancelled Chloride Cancelled Carbon Dioxide Cancelled Anion Gap Cancelled BUN Cancelled Creatinine Cancelled Est GFR (CKD-EPI 2020) Cancelled Glucose Cancelled Calcium Cancelled Magnesium Cancelled Total Bilirubin Cancelled AST Cancelled ALT Cancelled Alkaline Phosphatase Cancelled Troponin I Cancelled NT-Pro-B Natriuret Pep Cancelled Total Protein Cancelled Albumin Cancelled COVID-19 Source SARS-CoV-2 (PCR) Influenza Type A (PCR) Influenza Type B (PCR) RSV (PCR) 10/08/22 10/08/22 10/08/22 10:30 10:50 13:00 WBC RBC Hgb Hct MCV MCH MCHC RDW Plt Count MPV Immature Gran % Neutrophils % Lymphocytes % Monocytes % Eosinophils % Basophils % Nucleated RBC % Absolute Neutrophils Absolute Lymphocytes Absolute Monocytes Absolute Eosinophils Absolute Basophils Sodium 140 Potassium 3.5 Chloride 100 Carbon Dioxide 33.7 H Anion Gap 6.3 BUN 36 H Creatinine 1.4 H Est GFR (CKD-EPI 2020) 40.47 Glucose 79 Calcium 8.9 Magnesium 1.8 Total Bilirubin 1.1 H AST 38 H ALT 47 Alkaline Phosphatase 96 Troponin I < 50 < 50 NT-Pro-B Natriuret Pep 1515 H Total Protein 7.4 Albumin 3.5 COVID-19 Source Nasopharynx SARS-CoV-2 (PCR) Negative Influenza Type A (PCR) Negative Influenza Type B (PCR) Negative RSV (PCR) Negative Last Vital Signs Temp 37.3 C 10/08/22 09:32 Pulse 74 10/08/22 15:16 Resp 22 10/08/22 15:16 BP 129/74 10/08/22 15:16 Pulse Ox 91 L 10/08/22 14:16 Time Spent Time spent with Patient: 55-74 minutes Time was spent: preparing to see the patient(eg.review tests), obtaining and/or reviewing separately otained hiistory, ordering medications,tests, procedures, referring, communicating with other health home health care worker (E.D., nursing), indepentently interpreting results and care coordination
[2022-10-08] MEDS: Acetaminophen 325 MG TAB PO (17:29)
[2022-10-08 17:32] LABS: C-Reactive Protein 3.35 mg/dL (0.0-0.3); Troponin I < 50 ng/L (<or=60)
[2022-10-08 17:51] LABS: Procalcitonin 0.2 ng/mL
[2022-10-08 17:52] LABS: BE (Venous) 7 mmol/L (-2-3); HCO3 (Venous) 32 mmol/L (23-28); O2 Sat (Venous) 49 %; TCO2 (Venous) 29 mmol/L (24-29); pCO2 (Venous) 56 mmHg (41-51); pH (Venous) 7.36 (7.31-7.41); pO2 (Venous) 28 mmHg
[2022-10-08] MEDS: metOLazone 2.5 MG TAB 5 MG PO (18:20)
[2022-10-08] MEDS: Furosemide 100 MG/10 ML VIAL 120 MG IVP (18:21)
[2022-10-08] MEDS: predniSONE 20 MG TAB 60 MG PO (19:04)
--- NOTE | 2022-10-08 19:45 | RT.EKG_ITS ---
APPROVED REPORT Exam: Resting ECG Reason for Exam: dyspnea Patient Location: I HR:83 bpm ECG Measurements Heart Rate 83 AXIS OR [id number] P [id number] QRSd 80 QRS 38 QT 388 T 186 QTc 456 Conclusion Atrial fibrillation...V-rate 68-105, irreg A-activity Diffuse nonspecific ST-T abnormalities Artifact in lead(s) I,II,III,aVR,aVL,aVF,V1,V2,V3,V4,V5,V6
--- NOTE | 2022-10-08 20:55 | W.POCUS ---
Pocus Exam Limited Thoracic Lung Exam DATE OF EXAM: 10/08/22 TIME OF EXAM: 17:44 PROVIDER THAT PERFORMED THE STUDY: Willem Stone IS THIS A REPEAT EXAM DURING THIS ENCOUNTER: No REASON FOR EXAM: Shortness ofBreath VISUALIZED STRUCTURES: right anterior, left anterior, right lateral, left lateral, right posterior and left posterior PERTINENT FINDINGS/IMPRESSION: B-lines/left side thoracis location: anterior, lateral and posterior and B-lines/right side thoracis location: anterior, lateral and posterior; no pleural effusion on the left and no pleural effusion on the right DIFFERENTIAL DIAGNOSES: diffuse bilateral B lines w/ basilar predominance, no pleural effusions, some left posterolateral subpleural consolidation, no air bronchograms
--- NOTE | 2022-10-08 21:12 | W.POCUS ---
Pocus Exam Limited Cardiac Exam DATE OF EXAM: 10/08/22 TIME OF EXAM: 18:00 PROVIDER THAT PERFORMED THE STUDY: Willem Stone REASON FOR EXAM: Congestive heart failure and Dyspnea VISUALIZED STRUCTURES: four chambers and Interventricular septum VIEW OBTAINED: Apical 4-Chamber, Parasternal long-axis (poor images) and Parasternal short-axis PERTINENT FINDINGS/IMPRESSION: RV dilation DIFFERENTIAL DIAGNOSES: Poor image quality due patient body habitus (morbid obesity) unable to tolerate lying down; images taken sitting upright; RV appears moderately dilated in multiple images PSAX, AP4C, but overall RV function appears normal. LV function appears normal. No pericardial effusion. Unable to obtain subcostal views, therefore IVC not evaluated. No significant MR. Unable to get TR velocities. Exam complete
[2022-10-08] MEDS: Budesonide/Formoterol 80/4.5 6.9 GM 60 PUFF INH IH (21:41)
[2022-10-08] MEDS: Insulin Glargine 300 UNITS/3 ML PEN 77 UNITS SC (21:41)
[2022-10-08] MEDS: Benzonatate 100 MG CAP PO (21:41)
[2022-10-08] MEDS: Apixaban 5 MG TAB PO (21:41)
[2022-10-08] MEDS: Calcium 600mg/Vit D 200U TAB 1 TAB PO (21:42)
[2022-10-08] MEDS: Docusate Sodium 100 MG CAP PO (21:43)
[2022-10-08] MEDS: Levothyroxine 75 MCG TAB PO (21:44)
[2022-10-08] MEDS: Fluticasone NASAL SPRAY 16 GM BTL NS (21:44)
[2022-10-08] MEDS: rOPINIRole 1 MG TAB 4 MG PO (21:45)
[2022-10-08] MEDS: Potassium Chloride 10 MEQ CAPCR 20 MEQ PO (21:45)
[2022-10-08] MEDS: CEFEPIME 2 GM in Normal Saline 100 ML IVPB (21:46)
[2022-10-08 22:06] LABS: Bilirubin Negative (Negative); Blood Moderate (Negative); Clarity Clear (Clear); Glucose Negative (Negative); Ketones Negative (Negative); Leukocyte Esterase Negative (Negative); Nitrite Negative (Negative); Specific Gravity 1.015 (1.005-1.025); Urobilinogen 0.2 mg/dL (Up to 0.2)
[2022-10-08 22:11] LABS: Bacteria Rare HPF (Negative); C & S Indicated? No; Casts Negative LPF (Negative); Crystals Negative HPF (Negative); Epithelial Cells Rare HPF (Negative); Mucus Negative (Negative); WBC Negative HPF (0-5)
[2022-10-08] MEDS: DOXYCYCLINE 100 MG in Normal Saline 100 ML IVPB (22:28)
[2022-10-08 22:41] LABS: C Diff PCR Negative (Negative)
[2022-10-09] VITALS (13 sets, daily range): BP systolic 104–135; BP diastolic 57–80; PULSE 69–91; RESP 10–18; TEMP 36.1–37.8; O2SAT 91–96
[2022-10-09 07:48] LABS: Abs Immature Grans 0.06 10^3/uL (0.0-0.06); Absolute Basophil Count 0.01 10^3/uL (0.0-0.2); Absolute Eosinophil Count 0.01 10^3/uL (0.0-0.7); Absolute Lymphocyte Count 0.54 10^3/uL (1.2-3.4); Absolute Neutrophil Count 7.37 10^3/uL (1.2-6.7); Basophils % 0.1; Eosinophils % 0.1; HCT 44.2 % (36.0-46.0); HGB 14.3 g/dL (11.2-15.7); Immature Grans % 0.7; Lymphocytes % 6.6; MCH 30.4 pg (27.0-33.0); MCHC 32.4 % (32.0-36.0); MCV 94 fL (80-95); MPV 11.2 fL (8.0-11.0); Monocytes % 2.4; Neutrophils % 90.1; Platelet Count 163 10^3/uL (130-400); RBC 4.71 10^6/uL (3.93-5.22); RDW 14.6 % (11.7-14.6); RDW-SD 50.2 fL; WBC 8.19 10^3/uL (4.4-10.8)
[2022-10-09 08:05] LABS: Anion Gap 10.6 mmol/L (3-11); BUN 40 mg/dL (7-18); CO2 28.4 mmol/L (21.0-32.0); CREATININE 1.6 mg/dL (0.55-1.02); Calcium 8.7 mg/dL (8.5-10.1); Chloride 97 mmol/L (98-107); Estimated GFR 34.48 (mL/min/1.73m2); Glucose 367 mg/dL (74-106); Magnesium 2.1 mg/dL (1.8-2.4); Sodium 136 mmol/L (136-145)
[2022-10-09] MEDS: Budesonide/Formoterol 80/4.5 6.9 GM 60 PUFF INH IH ×2 (08:06→21:07)
[2022-10-09] MEDS: Tiotropium Bromide-Respimat 10 PUFF INH 2 PUFF IH (08:07)
[2022-10-09] MEDS: Omeprazole 20 MG CAPCR PO (09:07)
[2022-10-09] MEDS: Atorvastatin 40 MG TAB PO (09:07)
[2022-10-09] MEDS: FLUoxetine 10 MG TAB PO (09:07)
[2022-10-09] MEDS: Potassium Chloride 10 MEQ CAPCR 20 MEQ PO ×2 (09:07→14:29)
[2022-10-09] MEDS: Vitamins B Comp w/C TAB 1 TAB PO (09:07)
[2022-10-09] MEDS: Montelukast 10 MG TAB PO (09:07)
[2022-10-09] MEDS: Calcium 600mg/Vit D 200U TAB 1 TAB PO ×2 (09:07→21:03)
[2022-10-09] MEDS: Magnesium Oxide 400 MG TAB PO (09:08)
[2022-10-09] MEDS: Metoprolol CR 50 MG TABCR PO (09:08)
[2022-10-09] MEDS: Apixaban 5 MG TAB PO ×2 (09:08→21:03)
[2022-10-09] MEDS: predniSONE 20 MG TAB 40 MG PO (09:08)
[2022-10-09] MEDS: Lactobacillus Acidophilus CAP 1 CAP PO (09:08)
[2022-10-09] MEDS: Benzonatate 100 MG CAP PO (09:08)
[2022-10-09] MEDS: Insulin Glargine 300 UNITS/3 ML PEN 77 UNITS SC (09:09)
[2022-10-09] MEDS: Insulin Aspart 300 UNITS/3 ML PEN SC ×6 (09:10→16:52)
[2022-10-09] MEDS: CEFEPIME 2 GM in Normal Saline 100 ML IVPB ×2 (09:10→21:03)
[2022-10-09] MEDS: Fluticasone NASAL SPRAY 16 GM BTL NS ×2 (09:12→21:26)
[2022-10-09] MEDS: DOXYCYCLINE 100 MG in Normal Saline 100 ML IVPB ×2 (11:02→22:35)
--- NOTE | 2022-10-09 13:24 | PDOC.CMIN ---
- If Service Date Differs Date of service: 10/09/22 Time of Service: 13:24 Care Management Initial Assess REASON FOR HOSPITALIZATION:: Acute on Chronic Diastolic Heart Failure. PAST MEDICAL HISTORY/PAST SURGICAL HISTORY:: All Active Problems: Acute on chronic heart failure with preserved ejection fraction (HFpEF) (Acute), Acute febrile illness (Acute), Chronic kidney disease (Chronic), CHF (congestive heart failure) (Chronic), Interstitial pneumonia with autoimmune features (Acute), Total avulsion of nail plate (Acute), Onycholysis (Acute), Fall (Acute), Contusion of left hip (Acute), Abrasion of right knee (Acute), 2+ pitting edema (Acute), Fluid overload, unspecified (Acute), Mixed conductive and sensorineural hearing loss, unspecified (Acute), Otosclerosis of both ears (Acute), Diaphoresis (Acute), Pneumonia (Acute), CAP (community acquired pneumonia) (Acute), Encounter for competency evaluation (Acute), Periprosthetic hip fracture (Acute) - Left hip, Acute pain of left hip (Acute), Hypokalemia (Acute), Atherosclerotic peripheral vascular disease of extremity (Acute), UTI (urinary tract infection) (Acute), Charcot's joint, left ankle and foot (Acute ~04/2019), Hypomagnesemia (Acute), DVT prophylaxis (Acute), Discharge planning issues (Acute), Uncontrolled diabetes mellitus (Acute), Fungal dermatitis (Acute), Cellulitis of breast (Acute), Cataract (Acute), Cellulitis of lower extremity (Acute 10/31/14), Closed fracture of ankle (Acute), History of Achilles tendon repair (Acute), History of surgical procedure (Acute), Hypothyroidism (Chronic 01/09/13), Perforation of intestine (Acute), Vitamin D deficiency (Chronic 05/07/15), Type 2 diabetes mellitus with diabetic neuropathy (Chronic 05/13/15) - SEEN ENDOCRINE AT [facility], Transient ischemic attack (Chronic), Sensorineural hearing loss, bilateral (Chronic 05/24/17), Sciatica (Chronic). right; xray from 02/10 showed scattered spondylosis ant L4-5 on the left and mid lumbar scoliosis convex to the right, Pulmonary hypertension (Chronic 04/13/17), Polycythemia (Chronic 03/08/17), Otosclerosis (Chronic 10/14/14), Osteoarthritis (Chronic) - right shoulder AC-DJD, Glenohumoral jt. 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 mild; Fine Drusen in macula-OD - S/P SURGERY, Atrial fibrillation (Chronic 04/13/17), Amputated toe (Chronic) - GANGRENOUS - 2ND AND 3RD RIGHT TOES 11/14/17, Displaced bimalleolar fracture of right ankle (Chronic 05/29/14), Bilateral lower leg cellulitis (Chronic 05/29/14) - a. right worse than left, Morbid obesity (Chronic), Hyperlipidemia (Chronic), Hypertension (Chronic), Depression (Chronic), Hypothyroidism (Chronic), Restless legs syndrome (Chronic), Sleep apnea with use of continuous positive airway pressure (CPAP) (Chronic), Venous stasis (Chronic), History of tobacco use (Chronic) - a. quit in 1995 after approximately 30 pack years, H/O fracture of ankle (Chronic) - s. Left ankle 2011, Insomnia (Chronic), Hearing loss (Chronic), Left knee DJD (Chronic), DJD of shoulder (Chronic) - a. on right,. Arthritis (Chronic), Toe gangrene (Chronic), Atrial fibrillation (Chronic),. Pulmonary hypertension due to sleep-disordered breathing (Chronic), and. Amputated toe of right foot (Chronic). Medical History: Palliative care encounter, and Pulmonary fibrosis. Surgical History: Amputation - RIGHT SECOND AND THIRD TOES DUE TO DIABETIC ULCERS WITH CELLULITIS;11/14/17 DR. MAI, Colonoscopy - MAC (~2003), Extraction of cataract - 04/15/17 DR. ARRIETA; LEFT EYE 04/29/17 DR. ARRIETA; RIGHT EYE, and PROCEDURES: REPAIR OF INTESTINE NEC - puncture during colonoscopy, ACHILLOTENOTOMY -. L Achilles tendon repair. PREVIOUS FUNCTIONAL STATUS/SOCIAL/FAMILY SUPPORTS:: Madison has been a resident of the [facility] for the last 3 years. Prior to going to the [facility], she lived in [place] with her spouse. She has no children and considers the residents and staff of the [facility] her family. Madison utilizes a wheelchair to navigate her way around the [facility]. She enjoys playing cards with her roommate, crocheting, and participating in activities offered at the halfway. CURRENT FUNCTIONAL STATUS:: Madison is lying in bed when CM comes to see her. Per nursing staff, Madison has hearing aids but the batteries are currently and she is unable to hear anything without them. CM locates and changes the hearing aid batteries with the assistance of patient's nurse. Madison is thrilled and thankful to be able to hear again. She talks at length about the [facility] and all of the friends she has made there. ADVANCE DIRECTIVES:: COLST form on file. Has patient been provided with info about the portal/API?: Yes Did the patient sign up for the portal?: No CODE STATUS:: DNR/DNI INSURANCE COVERAGE / FINANCIAL ISSUES:: Medicare and Medicaid. CURRENT HOME/COMMUNITY SERVICES/EQUIPMENT:: Is a resident of the [facility] and [facility]. PRIMARY CARE PHYSICIAN:: Tamika Frias POTENTIAL DISCHARGE NEEDS:: Transportation back to the [facility] and follow up appointment with community providers. PATIENT/FAMILY EDUCATION NEEDS:: Review of discharge instructions including medications and limitations; discuss Ask Me Three. ANTICIPATED BARRIERS TO DISCHARGE:: None identified at this time. TRANSPORTATION:: Via RCT w/c van. PLAN:: Madison will return to the [facility] when medically cleared by provider. She will follow up with her community providers and plan of care as directed. She will be transported back to the [facility] via RCT w/c van when ready. CM will continue to follow.
[2022-10-09] MEDS: Acetaminophen 500 MG TAB 1000 MG PO (14:29)
[2022-10-09] MEDS: Normal Saline Flush 10 ML SYR (14:56)
--- NOTE | 2022-10-09 16:08 | W.PM.PROGNOT ---
Date of Service Date of service: 10/09/22 Time of Service: 16:17 Assessment and Plan Assessment and plan (1) Acute febrile illness: Status: Acute Assessment and plan: Febrile overnight. Continue doxy/cefepime. C.diff negative. Blood cultures pending. Suspect source is pulmonary (bronchitis). (2) Acute on chronic heart failure with preserved ejection fraction (HFpEF): Status: Acute Assessment and plan: Decrease furosemide gtt to 5 mg/hr. (3) Interstitial pneumonia with autoimmune features: Status: Acute Assessment and plan: Continue prednisone 40 mg PO daily. (4) Pulmonary hypertension: Status: Chronic Assessment and plan: Agree this is related to KELLEY. Continue BiPAP. Diurese. (5) Bilateral lower leg cellulitis: Status: Chronic Assessment and plan: Should be adequately covered by doxy/cefepime. Patient states that this is at her baseline. (6) Type 2 diabetes mellitus with diabetic neuropathy: Status: Chronic Assessment and plan: With steroid induced hyperglyemica. Increase long acting insulin. Increase SSI to resistant. Continue Carb counting prandial insulin. Qualifiers: Diabetes mellitus terminal clerk insulin use: with terminal clerk use Qualified Code(s): E11.40 - Type 2 diabetes mellitus with diabetic neuropathy, unspecified; Z79.4 - exterminator helper termite (current) use of insulin (7) Chronic kidney disease: Status: Chronic Assessment and plan: Cr slightly worse today - decrease dose of furosemide. (8) Atrial fibrillation: Status: Chronic Assessment and plan: Rate controlled. Continue apixaban, toprol XL. (9) Essential hypertension: Status: Chronic Assessment and plan: Continue metoprolol. (10) Depressive disorder: Status: Chronic Assessment and plan: Continue home prozac. (11) DVT prophylaxis: Status: Acute Assessment and plan: Continue apixaban (12) Discharge planning issues: Status: Acute Assessment and plan: DNR/DNI code status; Plan to return to [facility] when better Subjective Subjective Interval history since last seen: Ms Hoyos states her breathing is not better. She states her legs are always this color red and always warm. They are less swollen today. She denies dizziness, CP. Reports a cough occasionally productive of green sputum. Denies n/v. Exam Narrative Exam Narrative: General: Pleasant obese female, A&Ox3, [place] HEENT: EOMI, MMM Heart: RRR, no m/r/g Lungs: wheezing on expiration B, coughing Abdomen: soft, nontender, nondistended Extremities: +1 BLE edema, chronic venous stasis dermatitis Objective Last Vital Signs Temp 37.8 C H 10/09/22 15:12 Pulse 80 10/09/22 15:12 Resp 18 10/09/22 15:12 BP 135/76 10/09/22 15:12 Pulse Ox 91 L 10/09/22 15:12 Laboratory Results - last 24 hr 10/08/22 10/08/22 10/08/22 17:04 17:04 17:36 WBC RBC Hgb Hct MCV MCH MCHC RDW Plt Count MPV Immature Gran % Neutrophils % Lymphocytes % Monocytes % Eosinophils % Basophils % Nucleated RBC % Absolute Neutrophils Absolute Lymphocytes Absolute Monocytes Absolute Eosinophils Absolute Basophils VBG pH Cancelled VBG pCO2 Cancelled VBG pO2 Cancelled VBG HCO3 Cancelled VBG Total CO2 Cancelled VBG O2 Saturation Cancelled VBG Base Excess Cancelled Sodium Potassium Chloride Carbon Dioxide Anion Gap BUN Creatinine Est GFR (CKD-EPI 2020) Glucose Calcium Magnesium Troponin I < 50 C-Reactive Protein 3.35 H Procalcitonin 0.2 Urine Color Urine Clarity Urine pH Ur Specific [place] Urine Protein Urine Ketones Urine Blood Urine Nitrite Urine Bilirubin Urine Urobilinogen Ur Leukocyte Esterase Urine RBC Urine WBC Ur Epithelial Cells Urine Crystals Urine Bacteria Urine Casts Urine Mucus Ur Culture Indicated? Urine Glucose Stl C.difficile Tox PCR 10/08/22 10/08/22 10/08/22 17:46 21:45 21:45 WBC RBC Hgb Hct MCV MCH MCHC RDW Plt Count MPV Immature Gran % Neutrophils % Lymphocytes % Monocytes % Eosinophils % Basophils % Nucleated RBC % Absolute Neutrophils Absolute Lymphocytes Absolute Monocytes Absolute Eosinophils Absolute Basophils VBG pH 7.36 VBG pCO2 56 H VBG pO2 28 VBG HCO3 32 H VBG Total CO2 29 VBG O2 Saturation 49 VBG Base Excess 7 H Sodium Potassium Chloride Carbon Dioxide Anion Gap BUN Creatinine Est GFR (CKD-EPI 2020) Glucose Calcium Magnesium Troponin I C-Reactive Protein Procalcitonin Urine Color Yellow Urine Clarity Clear Urine pH 7.0 Ur Specific [place] 1.015 Urine Protein Negative Urine Ketones Negative Urine Blood Moderate H Urine Nitrite Negative Urine Bilirubin Negative Urine Urobilinogen 0.2 Ur Leukocyte Esterase Negative Urine RBC 10-20 H Urine WBC Negative Ur Epithelial Cells Rare Urine Crystals Negative Urine Bacteria Rare Urine Casts Negative Urine Mucus Negative Ur Culture Indicated? No Urine Glucose Negative Stl C.difficile Tox PCR Negative 10/09/22 10/09/22 06:40 06:40 WBC 8.19 RBC 4.71 Hgb 14.3 Hct 44.2 MCV 94 MCH 30.4 MCHC 32.4 RDW 14.6 Plt Count 163 MPV 11.2 H Immature Gran % 0.7 Neutrophils % 90.1 Lymphocytes % 6.6 Monocytes % 2.4 Eosinophils % 0.1 Basophils % 0.1 Nucleated RBC % 0.0 Absolute Neutrophils 7.37 H Absolute Lymphocytes 0.54 L Absolute Monocytes 0.20 Absolute Eosinophils 0.01 Absolute Basophils 0.01 VBG pH VBG pCO2 VBG pO2 VBG HCO3 VBG Total CO2 VBG O2 Saturation VBG Base Excess Sodium 136 Potassium 4.0 Chloride 97 L Carbon Dioxide 28.4 Anion Gap 10.6 BUN 40 H Creatinine 1.6 H Est GFR (CKD-EPI 2020) 34.48 Glucose 367 H Calcium 8.7 Magnesium 2.1 Troponin I C-Reactive Protein Procalcitonin Urine Color Urine Clarity Urine pH Ur Specific [place] Urine Protein Urine Ketones Urine Blood Urine Nitrite Urine Bilirubin Urine Urobilinogen Ur Leukocyte Esterase Urine RBC Urine WBC Ur Epithelial Cells Urine Crystals Urine Bacteria Urine Casts Urine Mucus Ur Culture Indicated? Urine Glucose Stl C.difficile Tox PCR Time Spent with Patient Time Spent with Patient: 25-34 minutes Time was spent: preparing to see the patient(eg.review tests), obtaining and/or reviewing separately otained hiistory, ordering medications,tests, procedures, referring, communicating with other health live in caregiver, indepentently interpreting results, counseling the patient and care coordination
[2022-10-09] MEDS: Albuterol 2.5 MG/3 ML INH SOLN VIAL UPD (17:34)
[2022-10-09] MEDS: Ipratropium 0.5 MG/2.5 ML UPD VIAL (17:34)
[2022-10-09] MEDS: Benzonatate 100 MG CAP 200 MG PO (21:03)
[2022-10-09] MEDS: guaiFENesin 600 MG TABCR PO (21:08)
[2022-10-09] MEDS: Insulin Glargine 300 UNITS/3 ML PEN 85 UNITS SC (21:08)
[2022-10-09] MEDS: Levothyroxine 75 MCG TAB PO (22:36)
[2022-10-09] MEDS: Docusate Sodium 100 MG CAP PO (22:36)
[2022-10-09] MEDS: rOPINIRole 1 MG TAB 4 MG PO (22:36)
[2022-10-10] VITALS (17 sets, daily range): BP systolic 108–137; BP diastolic 68–84; PULSE 71–92; RESP 2–20; TEMP 36.1–36.9; O2SAT 92–97
[2022-10-10 07:18] LABS: Abs Immature Grans 0.05 10^3/uL (0.0-0.06); Absolute Basophil Count 0.03 10^3/uL (0.0-0.2); Absolute Lymphocyte Count 1.81 10^3/uL (1.2-3.4); Absolute Monocyte Count 0.81 10^3/uL (0.1-0.8); Absolute Neutrophil Count 6.17 10^3/uL (1.2-6.7); Basophils % 0.3; HCT 42.9 % (36.0-46.0); HGB 14.3 g/dL (11.2-15.7); Immature Grans % 0.6; Lymphocytes % 20.4; MCH 30.8 pg (27.0-33.0); MCHC 33.3 % (32.0-36.0); MCV 92 fL (80-95); Monocytes % 9.1; Neutrophils % 69.6; Platelet Count 166 10^3/uL (130-400); RBC 4.65 10^6/uL (3.93-5.22); RDW 14.4 % (11.7-14.6); RDW-SD 48.5 fL; WBC 8.87 10^3/uL (4.4-10.8)
[2022-10-10] MEDS: Calcium 600mg/Vit D 200U TAB 1 TAB PO ×2 (07:38→20:02)
[2022-10-10] MEDS: FLUoxetine 10 MG TAB PO (07:38)
[2022-10-10] MEDS: Apixaban 5 MG TAB PO ×2 (07:38→20:52)
[2022-10-10] MEDS: Vitamins B Comp w/C TAB 1 TAB PO (07:38)
[2022-10-10] MEDS: Lactobacillus Acidophilus CAP 1 CAP PO (07:38)
[2022-10-10 07:39] LABS: Anion Gap 11.9 mmol/L (3-11); BUN 55 mg/dL (7-18); CO2 29.1 mmol/L (21.0-32.0); CREATININE 1.5 mg/dL (0.55-1.02); Calcium 9.4 mg/dL (8.5-10.1); Chloride 98 mmol/L (98-107); Estimated GFR 37.26 (mL/min/1.73m2); Glucose 249 mg/dL (74-106); Magnesium 2.1 mg/dL (1.8-2.4); Potassium 3.8 mmol/L (3.5-5.1); Sodium 139 mmol/L (136-145)
[2022-10-10] MEDS: Metoprolol CR 50 MG TABCR PO (07:39)
[2022-10-10] MEDS: guaiFENesin 600 MG TABCR PO ×2 (07:39→20:01)
[2022-10-10] MEDS: Magnesium Oxide 400 MG TAB PO (07:39)
[2022-10-10] MEDS: Omeprazole 20 MG CAPCR PO (07:39)
[2022-10-10] MEDS: Atorvastatin 40 MG TAB PO (07:39)
[2022-10-10] MEDS: predniSONE 20 MG TAB 40 MG PO (07:39)
[2022-10-10] MEDS: Fluticasone NASAL SPRAY 16 GM BTL NS ×2 (07:54→20:02)
[2022-10-10] MEDS: CEFEPIME 2 GM in Normal Saline 100 ML IVPB ×2 (07:58→20:01)
[2022-10-10] MEDS: Budesonide/Formoterol 80/4.5 6.9 GM 60 PUFF INH IH ×2 (07:59→20:03)
[2022-10-10] MEDS: Tiotropium Bromide-Respimat 10 PUFF INH 2 PUFF IH (07:59)
[2022-10-10] MEDS: Insulin Aspart 300 UNITS/3 ML PEN SC ×6 (08:06→17:05)
[2022-10-10] MEDS: Insulin Glargine 300 UNITS/3 ML PEN 85 UNITS SC (08:09)
[2022-10-10] MEDS: Benzonatate 100 MG CAP 200 MG PO ×3 (08:19→20:02)
[2022-10-10] MEDS: Montelukast 10 MG TAB PO (08:22)
[2022-10-10] MEDS: Nystatin POWDER 60 GM JAR TP ×3 (10:33→20:33)
[2022-10-10] MEDS: DOXYCYCLINE 100 MG in Normal Saline 100 ML IVPB ×2 (10:33→21:58)
[2022-10-10] MEDS: Albuterol/Ipratropium 3 ML UPD VIAL UPD ×2 (15:28→20:02)
--- NOTE | 2022-10-10 17:31 | W.PM.PROGNOT ---
Date of Service Date of service: 10/10/22 Time of Service: 17:32 Assessment and Plan Assessment and plan (1) Acute febrile illness: Status: Acute Assessment and plan: Defervesced. Blood cultures negative. Suspect acute bronchitis. Continue doxy/cefepime. C.diff negative. Intensify antitussives. (2) Acute on chronic heart failure with preserved ejection fraction (HFpEF): Status: Acute Assessment and plan: Decrease furosemide gtt to 2.5 mg/hr - output good. (3) Interstitial pneumonia with autoimmune features: Status: Acute Assessment and plan: Continue prednisone 40 mg PO daily. (4) Pulmonary hypertension: Status: Chronic Assessment and plan: Agree this is related to KELLEY. Continue BiPAP. Diurese. (5) Bilateral lower leg cellulitis: Status: Chronic Assessment and plan: Should be adequately covered by doxy/cefepime. Patient states that this is at her baseline. (6) Type 2 diabetes mellitus with diabetic neuropathy: Status: Chronic Assessment and plan: With steroid induced hyperglyemica. Increase long acting insulin again. Continue resistant SSI. Continue Carb counting prandial insulin. Qualifiers: Diabetes mellitus exterminator helper insulin use: with shelter use Qualified Code(s): E11.40 - Type 2 diabetes mellitus with diabetic neuropathy, unspecified; Z79.4 - correction (current) use of insulin (7) Chronic kidney disease: Status: Chronic Assessment and plan: Cr relatively stable, but UOP very impressive - decrease dose of furosemide. (8) Atrial fibrillation: Status: Chronic Assessment and plan: Rate controlled. Continue apixaban, toprol XL. (9) Essential hypertension: Status: Chronic Assessment and plan: Continue metoprolol. (10) Depressive disorder: Status: Chronic Assessment and plan: Continue home prozac. (11) DVT prophylaxis: Status: Acute Assessment and plan: Continue apixaban (12) Discharge planning issues: Status: Acute Assessment and plan: DNR/DNI code status; Plan to return to [facility] when better Subjective Subjective Interval history since last seen: Ms Hoyos states that she is feeling in someways better - with her breathing overall, but in someways not (her dry cough). She states that guaifenesin with codeine has previously helped. States she got dizzy with one of her coughing fits. Denies CP, nausea, abdominal pain. Exam Narrative Exam Narrative: General: Pleasant obese female, A&Ox3, EEK, coughing HEENT: EOMI, MMM Heart: RRR, no m/r/g Lungs: wheezing on expiration B, coughing Abdomen: soft, nontender, nondistended Extremities: trace BLE edema, wrinkles on BLEs, wearing SCDS over her chronic venous stasis dermatitis Objective Last Vital Signs Temp 36.6 C 10/10/22 15:09 Pulse 80 10/10/22 15:29 Resp 16 10/10/22 15:29 BP 126/75 10/10/22 15:09 Pulse Ox 93 10/10/22 15:29 Laboratory Results - last 24 hr 10/10/22 10/10/22 06:40 06:40 WBC 8.87 RBC 4.65 Hgb 14.3 Hct 42.9 MCV 92 MCH 30.8 MCHC 33.3 RDW 14.4 Plt Count 166 MPV 11.0 Immature Gran % 0.6 Neutrophils % 69.6 Lymphocytes % 20.4 Monocytes % 9.1 Eosinophils % 0.0 Basophils % 0.3 Nucleated RBC % 0.0 Absolute Neutrophils 6.17 Absolute Lymphocytes 1.81 Absolute Monocytes 0.81 H Absolute Eosinophils 0.00 Absolute Basophils 0.03 Sodium 139 Potassium 3.8 Chloride 98 Carbon Dioxide 29.1 Anion Gap 11.9 H BUN 55 H Creatinine 1.5 H Est GFR (CKD-EPI 2020) 37.26 Glucose 249 H Calcium 9.4 Magnesium 2.1 Time Spent with Patient Time Spent with Patient: 25-34 minutes Time was spent: preparing to see the patient(eg.review tests), obtaining and/or reviewing separately otained hiistory, ordering medications,tests, procedures, referring, communicating with other health day care worker, indepentently interpreting results, counseling the patient and care coordination
[2022-10-10] MEDS: guaiFENesin/D-METHORPHAN HB 5 ML CUP 10 ML PO ×2 (17:36→23:26)
[2022-10-10] MEDS: Normal Saline Flush 10 ML SYR IVP (20:04)
[2022-10-10] MEDS: Insulin Glargine 300 UNITS/3 ML PEN 95 UNITS SC (20:32)
[2022-10-10 20:57] LABS: Legionella Ag Detection Urine Negative (Negative)
[2022-10-10] MEDS: Levothyroxine 75 MCG TAB PO (21:58)
[2022-10-10] MEDS: Docusate Sodium 100 MG CAP PO (21:58)
[2022-10-10] MEDS: rOPINIRole 1 MG TAB 4 MG PO (21:58)
[2022-10-11] VITALS (22 sets, daily range): BP systolic 100–145; BP diastolic 62–87; PULSE 64–96; RESP 4–22; TEMP 36.2–36.8; O2SAT 92–99
[2022-10-11] MEDS: Albuterol 2.5 MG/3 ML INH SOLN VIAL UPD (04:34)
[2022-10-11 06:56] LABS: Abs Immature Grans 0.06 10^3/uL (0.0-0.06); Absolute Eosinophil Count 0.01 10^3/uL (0.0-0.7); Absolute Lymphocyte Count 2.59 10^3/uL (1.2-3.4); Absolute Monocyte Count 0.95 10^3/uL (0.1-0.8); Basophils % 0.3; Eosinophils % 0.1; HCT 44.6 % (36.0-46.0); Immature Grans % 0.5; Lymphocytes % 22.5; MCH 30.9 pg (27.0-33.0); MCHC 33.6 % (32.0-36.0); MCV 92 fL (80-95); MPV 11.1 fL (8.0-11.0); Monocytes % 8.2; Neutrophils % 68.4; Platelet Count 186 10^3/uL (130-400); RBC 4.85 10^6/uL (3.93-5.22); RDW 14.3 % (11.7-14.6); RDW-SD 48.3 fL; WBC 11.53 10^3/uL (4.4-10.8)
[2022-10-11 07:01] LABS: Absolute Basophil Count 0.03 10^3/uL (0.0-0.2); Absolute Neutrophil Count 7.89 10^3/uL (1.2-6.7)
[2022-10-11 07:22] LABS: Anion Gap 9.3 mmol/L (3-11); BUN 55 mg/dL (7-18); CO2 29.7 mmol/L (21.0-32.0); CREATININE 1.5 mg/dL (0.55-1.02); Calcium 9.8 mg/dL (8.5-10.1); Chloride 97 mmol/L (98-107); Estimated GFR 37.26 (mL/min/1.73m2); Glucose 172 mg/dL (74-106); Magnesium 1.9 mg/dL (1.8-2.4); Potassium 3.3 mmol/L (3.5-5.1); Sodium 136 mmol/L (136-145)
[2022-10-11 07:51] LABS: Lab Add On Test DONE
[2022-10-11 08:40] LABS: Procalcitonin 0.2 ng/mL
[2022-10-11] MEDS: Albuterol/Ipratropium 3 ML UPD VIAL UPD ×4 (08:50→21:19)
[2022-10-11] MEDS: Budesonide/Formoterol 80/4.5 6.9 GM 60 PUFF INH IH ×2 (08:53→21:22)
[2022-10-11] MEDS: Tiotropium Bromide-Respimat 10 PUFF INH 2 PUFF IH (08:53)
--- NOTE | 2022-10-11 09:01 | CMPROGNOTE_ITS ---
- If Service Date Differs Date of service: 10/11/22 Time of Service: 09:01 Care Management Progress Note S/O: Madison remains inpatient at this time, she was sitting up in bed, alert. No change to overall plan at this time. CM continues to follow. A: 72 year old female admitted to [facility] 10/09/22 for acute on chronic diastolic heart failure P: Madison will return to the [facility] when medically cleared by provider. She will follow up with her community providers, pulmonology and her plan of care as directed. She will be transported back to the [facility] via RCT w/c van when ready. CM will continue to follow.
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
[2022-10-11] MEDS: Insulin Aspart 300 UNITS/3 ML PEN SC ×6 (09:07→17:07)
[2022-10-11] MEDS: Insulin Glargine 300 UNITS/3 ML PEN 95 UNITS SC ×2 (09:09→21:26)
[2022-10-11] MEDS: CEFEPIME 2 GM in Normal Saline 100 ML IVPB (09:09)
[2022-10-11] MEDS: Calcium 600mg/Vit D 200U TAB 1 TAB PO ×2 (09:10→21:19)
[2022-10-11] MEDS: FLUoxetine 10 MG TAB PO (09:10)
[2022-10-11] MEDS: Lactobacillus Acidophilus CAP 1 CAP PO (09:10)
[2022-10-11] MEDS: Benzonatate 100 MG CAP 200 MG PO ×3 (09:10→21:19)
[2022-10-11] MEDS: Potassium Chloride 20 MEQ TABCR 40 MEQ PO (09:10)
[2022-10-11] MEDS: predniSONE 20 MG TAB 40 MG PO (09:11)
[2022-10-11] MEDS: Omeprazole 20 MG CAPCR PO (09:11)
[2022-10-11] MEDS: Fluticasone NASAL SPRAY 16 GM BTL NS ×2 (09:11→21:21)
[2022-10-11] MEDS: Magnesium Oxide 400 MG TAB PO (09:11)
[2022-10-11] MEDS: Metoprolol CR 50 MG TABCR PO (09:11)
[2022-10-11] MEDS: Vitamins B Comp w/C TAB 1 TAB PO (09:11)
[2022-10-11] MEDS: Atorvastatin 40 MG TAB PO (09:11)
[2022-10-11] MEDS: guaiFENesin 600 MG TABCR PO ×2 (09:11→21:19)
[2022-10-11] MEDS: Nystatin POWDER 60 GM JAR TP ×3 (09:12→21:21)
[2022-10-11] MEDS: Montelukast 10 MG TAB PO (09:13)
[2022-10-11] MEDS: Apixaban 5 MG TAB PO ×2 (09:17→21:18)
[2022-10-11] MEDS: DOXYCYCLINE 100 MG in Normal Saline 100 ML IVPB (10:39)
[2022-10-11 12:44] LABS: Glucose 191 mg/dL (74-106)
[2022-10-11 16:28] LABS: Streptococcus Pneumoniae Ag, U Negative (Negative)
[2022-10-11] MEDS: guaiFENesin/D-METHORPHAN HB 5 ML CUP 10 ML PO (17:26)
--- NOTE | 2022-10-11 19:37 | W.PM.PROGNOT ---
Date of Service Date of service: 10/11/22 Time of Service: 17:45 Assessment and Plan Assessment and plan (1) Acute febrile illness: Status: Acute Assessment and plan: Defervesced. Blood cultures negative. Suspect acute bronchitis. Cellulitis could also be contributing. Will switch abx to PO (keflex). C.diff negative. (2) Acute on chronic heart failure with preserved ejection fraction (HFpEF): Status: Acute Assessment and plan: Increase furosemide gtt back up to 5 mg/hr. (3) Interstitial pneumonia with autoimmune features: Status: Ruled-out Assessment and plan: D/c prednisone (4) Pulmonary hypertension: Status: Chronic Assessment and plan: Agree this is related to KELLEY. Continue BiPAP. Diurese. (5) Bilateral lower leg cellulitis: Status: Chronic Assessment and plan: Switch abx to keflex. . (6) Type 2 diabetes mellitus with diabetic neuropathy: Status: Chronic Assessment and plan: Will titrate insulins down now that the prednisone was d/c'ed. Anticipate the change tomorrow. Continue resistant SSI. Continue Carb counting prandial insulin. 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 Increase furosemide gtt rate. (8) Atrial fibrillation: Status: Chronic Assessment and plan: Rate controlled. Continue apixaban, toprol XL. (9) Essential hypertension: Status: Chronic Assessment and plan: Continue metoprolol. (10) Depressive disorder: Status: Chronic Assessment and plan: Continue home prozac. (11) DVT prophylaxis: Status: Acute Assessment and plan: Continue apixaban (12) Discharge planning issues: Status: Acute Assessment and plan: DNR/DNI code status; Plan to return to [facility] when better Subjective Subjective Interval history since last seen: C/o persistent cough (dry). Didn't sleep last night - has issues with insomnia, but not related to the cough. Denies dizziness, endorses chest pain with coughing, nausea, abdominal pain. Cough is not productive. Evaluated by pulmonology: Dr Jones feels there is no role for steroids as this is not an ILD flare. Exam Narrative Exam Narrative: General: Pleasant obese female, A&Ox3, [place] coughing HEENT: EOMI, MMM Heart: RRR, no m/r/g Lungs: wheezing on expiration B, coughing Abdomen: soft, nontender, nondistended Extremities: trace BLE edema, wrinkles on BLEs, wearing SCDS over her chronic venous stasis dermatitis Objective Last Vital Signs Temp 36.5 C 10/11/22 15:15 Pulse 90 10/11/22 17:54 Resp 16 10/11/22 17:44 BP 139/75 10/11/22 15:15 Pulse Ox 98 10/11/22 17:54 Laboratory Results - last 24 hr 10/08/22 10/08/22 10/11/22 21:45 21:55 06:08 WBC RBC Hgb Hct MCV MCH MCHC RDW Plt Count MPV Immature Gran % Neutrophils % Lymphocytes % Monocytes % Eosinophils % Basophils % Nucleated RBC % Absolute Neutrophils Absolute Lymphocytes Absolute Monocytes Absolute Eosinophils Absolute Basophils Sodium 136 Potassium 3.3 L Chloride 97 L Carbon Dioxide 29.7 Anion Gap 9.3 BUN 55 H Creatinine 1.5 H Est GFR (CKD-EPI 2020) 37.26 Glucose 172 H Calcium 9.8 Magnesium 1.9 Procalcitonin Urine Legionella Ag Negative Ur Strep pneumoniae Ag Negative Add-On Test Request 10/11/22 10/11/22 10/11/22 06:08 06:08 06:08 WBC 11.53 H RBC 4.85 Hgb 15.0 Hct 44.6 MCV 92 MCH 30.9 MCHC 33.6 RDW 14.3 Plt Count 186 MPV 11.1 H Immature Gran % 0.5 Neutrophils % 68.4 Lymphocytes % 22.5 Monocytes % 8.2 Eosinophils % 0.1 Basophils % 0.3 Nucleated RBC % 0.0 Absolute Neutrophils 7.89 H Absolute Lymphocytes 2.59 Absolute Monocytes 0.95 H Absolute Eosinophils 0.01 Absolute Basophils 0.03 Sodium Potassium Chloride Carbon Dioxide Anion Gap BUN Creatinine Est GFR (CKD-EPI 2020) Glucose Calcium Magnesium Procalcitonin 0.2 Urine Legionella Ag Ur Strep pneumoniae Ag Add-On Test Request DONE 10/11/22 12:25 WBC RBC Hgb Hct MCV MCH MCHC RDW Plt Count MPV Immature Gran % Neutrophils % Lymphocytes % Monocytes % Eosinophils % Basophils % Nucleated RBC % Absolute Neutrophils Absolute Lymphocytes Absolute Monocytes Absolute Eosinophils Absolute Basophils Sodium Potassium Chloride Carbon Dioxide Anion Gap BUN Creatinine Est GFR (CKD-EPI 2020) Glucose 191 H Calcium Magnesium Procalcitonin Urine Legionella Ag Ur Strep pneumoniae Ag Add-On Test Request Time Spent with Patient Time Spent with Patient: 35-49 minutes Time was spent: preparing to see the patient(eg.review tests), obtaining and/or reviewing separately otained hiistory, ordering medications,tests, procedures, referring, communicating with other health laboratory animal caretaker, indepentently interpreting results, counseling the patient and care coordination
[2022-10-11] MEDS: Cephalexin 250 MG CAP PO (21:18)
[2022-10-11] MEDS: Melatonin 3 MG TAB PO (21:18)
[2022-10-11] MEDS: Docusate Sodium 100 MG CAP PO (21:18)
[2022-10-11] MEDS: Levothyroxine 75 MCG TAB PO (21:18)
[2022-10-11] MEDS: rOPINIRole 1 MG TAB 4 MG PO (21:19)
[2022-10-12] VITALS (16 sets, daily range): BP systolic 111–153; BP diastolic 66–85; PULSE 60–96; RESP 8–18; TEMP 36.2–36.9; O2SAT 92–98
[2022-10-12] MEDS: Mylanta Suspension 30 ML CUP PO (03:20)
[2022-10-12 06:23] LABS: Abs Immature Grans 0.09 10^3/uL (0.0-0.06); Absolute Basophil Count 0.04 10^3/uL (0.0-0.2); Absolute Lymphocyte Count 3.21 10^3/uL (1.2-3.4); Absolute Monocyte Count 1.02 10^3/uL (0.1-0.8); Absolute Neutrophil Count 8.73 10^3/uL (1.2-6.7); Basophils % 0.3; HCT 43.9 % (36.0-46.0); HGB 14.6 g/dL (11.2-15.7); Immature Grans % 0.7; Lymphocytes % 24.5; MCH 30.7 pg (27.0-33.0); MCHC 33.3 % (32.0-36.0); MCV 92 fL (80-95); MPV 11.2 fL (8.0-11.0); Monocytes % 7.8; Neutrophils % 66.7; Platelet Count 192 10^3/uL (130-400); RBC 4.76 10^6/uL (3.93-5.22); RDW 14.3 % (11.7-14.6); RDW-SD 48.1 fL; WBC 13.09 10^3/uL (4.4-10.8)
[2022-10-12 06:46] LABS: Anion Gap 9.6 mmol/L (3-11); BUN 58 mg/dL (7-18); CO2 28.4 mmol/L (21.0-32.0); CREATININE 1.3 mg/dL (0.55-1.02); Calcium 9.9 mg/dL (8.5-10.1); Chloride 100 mmol/L (98-107); Estimated GFR 44.24 (mL/min/1.73m2); Glucose 94 mg/dL (74-106); Potassium 3.4 mmol/L (3.5-5.1); Sodium 138 mmol/L (136-145)
[2022-10-12] MEDS: Albuterol/Ipratropium 3 ML UPD VIAL UPD ×4 (07:45→19:57)
[2022-10-12] MEDS: Tiotropium Bromide-Respimat 10 PUFF INH 2 PUFF IH (07:47)
[2022-10-12] MEDS: Budesonide/Formoterol 80/4.5 6.9 GM 60 PUFF INH IH ×2 (07:47→19:58)
--- NOTE | 2022-10-12 08:48 | CMPROGNOTE_ITS ---
- If Service Date Differs Date of service: 10/12/22 Time of Service: 08:48 Care Management Progress Note S/O: Madison was sitting up in a chair eating lunch when CM met with her. She was smiling and engaged easily with CM. Madison shared that she wishes that she were able to walk more. She stated that she used to walk but because of short staffing at [facility], the staff no longer has time to assist her. She informed CM that she is able to use a walker and transfer to her wheelchair and to the bathroom independently. She is scheduled to have a PT evaluation today. Madison has CHF and has been receiving Lasix via IV drip. She has lost over 12 Kg since admission and stated that she her breathing is much better. Madison asked CM if there were any hearing aide batteries available as her hearing aides are making a low battery sound. CM reported the request to nursing. A: 72 year old female admitted to [facility] 10/09/22 for acute on chronic diastolic heart failure P: Madison will return to the [facility] when medically cleared by provider. She will follow up with her community providers, pulmonology and her plan of care as directed. She will be transported back to the [facility] via [facility] w/c van when ready. CM will continue to follow.
[2022-10-12] MEDS: Potassium Chloride 20 MEQ TABCR 40 MEQ PO (09:54)
[2022-10-12] MEDS: Omeprazole 20 MG CAPCR PO (09:55)
[2022-10-12] MEDS: Lactobacillus Acidophilus CAP 1 CAP PO (09:55)
[2022-10-12] MEDS: Vitamins B Comp w/C TAB 1 TAB PO (09:55)
[2022-10-12] MEDS: Apixaban 5 MG TAB PO ×2 (09:55→19:56)
[2022-10-12] MEDS: FLUoxetine 10 MG TAB PO (09:55)
[2022-10-12] MEDS: guaiFENesin 600 MG TABCR PO ×2 (09:55→19:56)
[2022-10-12] MEDS: Atorvastatin 40 MG TAB PO (09:55)
[2022-10-12] MEDS: Montelukast 10 MG TAB PO (09:56)
[2022-10-12] MEDS: Magnesium Oxide 400 MG TAB PO (09:56)
[2022-10-12] MEDS: Metoprolol CR 50 MG TABCR PO (09:56)
[2022-10-12] MEDS: Calcium 600mg/Vit D 200U TAB 1 TAB PO ×2 (09:56→19:56)
[2022-10-12] MEDS: Normal Saline Flush 10 ML SYR IVP (09:57)
[2022-10-12] MEDS: Cephalexin 250 MG CAP PO ×3 (09:57→19:56)
[2022-10-12] MEDS: Insulin Glargine 300 UNITS/3 ML PEN 95 UNITS SC (09:58)
[2022-10-12] MEDS: Fluticasone NASAL SPRAY 16 GM BTL NS ×2 (10:06→20:02)
[2022-10-12] MEDS: Nystatin POWDER 60 GM JAR TP ×3 (10:07→20:02)
[2022-10-12] MEDS: Insulin Aspart 300 UNITS/3 ML PEN SC ×4 (12:29→17:20)
--- NOTE | 2022-10-12 12:43 | W.PALLCONSUL ---
Date of service: 10/12/22 Time of Service: 13:15 History of Present Illness Narrative: Ms. Hoyos is a 72-year-old woman with poorly controlled diabetes, chronic atrial fibrillation (on anticoagulation), morbid obesity, heart failure with preserved ejection fraction (EF 55%), interstitial lung disease/pneumonitis (Dr. Capps, history of chronic edema, history of recurrent cellulitis in her lower extremities, CKD, history of UTIs, who was admitted to the hospital several days ago with fever and sepsis-like picture. Clinically at this point she is felt to have acute on chronic heart failure and fever due to either pulmonary or cellulitis source. Patient is a resident at the [facility] in [place] for several years. She has met with palliative care team members during past admissions. Palliative care has been asked to meet with her to review goals of care, CODE STATUS and help with symptom management and additional support. 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 She is to her but they have been since she moved into the [facility] and they have scant contact. They have no children. She enjoys crocheting blankets, especially baby blankets when people bring her will wool. She also enjoys playing cards, bingo and likes watching some TV. She enjoys her roommate at [facility], they enjoy playing games together. Impression of currents health status: Okay What bothers you the most: That I cannot walk. If I could walk better I could go outside What worries you the most: The chronic cough she has had and that they really have not been able to find the cause of it. Function: Ambulation: Self propels in a wheelchair when at [facility]. Used to be able to use a walker for short distances. Not enough staff to keep her walking at the [facility]. Looking forward to physical therapy during her hospital stay ADLs: Reports she is independent. Wears a pull-up just in case she cannot make it to the bathroom quick enough iADLs: Totally dependent. Hearing: Uses hearing aids (currently without batteries). Vision: Usually wears glasses, left them behind at [facility]. Palliative Performance Scale % Ambulation Activity and Evidence of Disease Self Care Intake Level of Consciousness 100 Full Normal activity, no evidence of disease Full Normal Full 90 Full Normal activity, some evidence of disease Full Normal Full 80 Full Normal activity with effort, some evidence of disease Full Normal or reduced Full 70 Reduced Unable to do normal work, some evidence of disease Full Normal or reduced Full 60 Reduced Unable to do hobby or some housework, significant disease Occasional assist necessary Normal or reduced Full or confusion 50 Mainly sit/lie Unable to do any work, extensive disease Considerable assistance required Normal or reduced Full or confusion 40 Mainly in bed Unable to do any work, extensive disease Mainly assistance Normal or reduced Full, drowsy, or confusion 30 Totally bed bound Unable to do any work, extensive disease Total care Reduced Full, drowsy, or confusion 20 Totally bed bound Unable to do any work, extensive disease Total care Minimal sips Full, drowsy, or confusion 10 Totally bed bound Unable to do any work, extensive disease Total care Mouth care only Drowsy or coma 0 - - - - Patient Score: Spiritual history: 50 Palliative review of systems: Pain: Usually has pain all over her body from arthritis. Currently no pain when I see her. Dyspnea: Has dyspnea, even at rest, which is why she is a work-up was pursued and they found the interstitial lung disease GI symptoms: Occasional constipation Appetite: Not very good Depression: Anxiety: None Emotional Distress: Spiritual/Existential Distress: Advanced Care Planning: Advanced Directive: None on file Health Care Agent: She does not want to assign a healthcare agent. See discussion below. COLST: Page 1 of COLST From November 2017:: DNR. No other information given. Limitations: Assessment and Plan Assessment and plan (1) Respiratory failure: Status: Acute Assessment and plan: Patient is clinically improving. Not candidate for BiPAP at night due to not feel comfortable using it for more than 2 hours at night. 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 (2) Acute on chronic heart failure with preserved ejection fraction (HFpEF): Status: Acute (3) Interstitial pneumonia with autoimmune features: Status: Ruled-out (4) Type 2 diabetes mellitus with diabetic neuropathy: Status: Chronic Assessment and plan: Management as per PCP. 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 Second page is missing. I reviewed CODE STATUS with patient. She is firmly against having CPR done or having any intubation. Regarding other limitations, she would like to be transferred to the hospital, evaluated and treated. She would like to have IV fluids and would like to have antibiotics if indicated. She does not want a feeding tube. New COLST was drawn up and verbal consent used. Regarding healthcare agent: Her sister Maria Elena Gilbert is listed as emergency contact. However Madison definitely does not want to have her be healthcare agent. She describes a recent conflict they have that we are healing from . She also does not want her to be her healthcare agent, they have been for the last 3 years and she says they have had little contact. She asked to have the staff at the [facility] be her healthcare agent; explained that people who are being paid to care for her cannot function in this capacity, with statute explained. I asked her to think about friends, family members, coworkers that she is known in the past who she would trust to take on this role. She cannot think of anyone right now. I explained to her that if she did not she is a healthcare agent, if there is some time in the future when she was unable to make decisions for herself, anybody who requested to be surrogate could possibly be able to make decisions for her. I have asked her to think about this and we can revisit it next time she is seen by the palliative care team. [facility] All Active Problems (Updated 10/12/22 @ 12:49 by Isabella Krishna MD) Advanced care planning/counseling discussion (Acute) Respiratory failure (Acute) Acute on chronic heart failure with preserved ejection fraction (HFpEF) (Acute) Acute febrile illness (Acute) Chronic kidney disease (Chronic) CHF (congestive heart failure) (Chronic) Total avulsion of nail plate (Acute) Onycholysis (Acute) Fall (Acute) Contusion of left hip (Acute) Abrasion of right knee (Acute) 2+ pitting edema (Acute) Fluid overload, unspecified (Acute) Mixed conductive and sensorineural hearing loss, unspecified (Acute) Otosclerosis of both ears (Acute) Diaphoresis (Acute) Pneumonia (Acute) CAP (community acquired pneumonia) (Acute) Encounter for competency evaluation (Acute) Periprosthetic hip fracture (Acute) Left hip Acute pain of left hip (Acute) Hypokalemia (Acute) Atherosclerotic peripheral vascular disease of extremity (Acute) UTI (urinary tract infection) (Acute) Charcot's joint, left ankle and foot (Acute ~04/2019) Hypomagnesemia (Acute) DVT prophylaxis (Acute) Discharge planning issues (Acute) Uncontrolled diabetes mellitus (Acute) Fungal dermatitis (Acute) Cellulitis of breast (Acute) Cataract (Acute) Cellulitis of lower extremity (Acute 10/31/14) Closed fracture of ankle (Acute) History of Achilles tendon repair (Acute) History of surgical procedure (Acute) Hypothyroidism (Chronic 01/09/13) Perforation of intestine (Acute) Vitamin D deficiency (Chronic 05/07/15) Type 2 diabetes mellitus with diabetic neuropathy (Chronic 05/13/15) SEEN ENDOCRINE AT [facility] Transient ischemic attack (Chronic) Sensorineural hearing loss, bilateral (Chronic 05/24/17) Sciatica (Chronic) right; xray from 02/10 showed scattered spondylosis ant L4-5 on the left and mid lumbar scoliosis convex to the right Pulmonary hypertension (Chronic 04/13/17) Polycythemia (Chronic 03/08/17) Otosclerosis (Chronic 10/14/14) Osteoarthritis (Chronic) right shoulder AC-DJD, Glenohumoral jt. 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 right worse than left Morbid obesity (Chronic) Hyperlipidemia (Chronic) Hypertension (Chronic) Depression (Chronic) Hypothyroidism (Chronic) Restless legs syndrome (Chronic) Sleep apnea with use of continuous positive airway pressure (CPAP) (Chronic) Venous stasis (Chronic) History of tobacco use (Chronic) a. quit in 1995 after approximately 30 pack years H/O fracture of ankle (Chronic) s. Left ankle 2011 Insomnia (Chronic) Hearing loss (Chronic) Left knee DJD (Chronic) DJD of shoulder (Chronic) a. on right Arthritis (Chronic) Toe gangrene (Chronic) Atrial fibrillation (Chronic) Pulmonary hypertension due to sleep-disordered breathing (Chronic) Amputated toe of right foot (Chronic) Medical History Palliative care encounter Pulmonary fibrosis Surgical History Amputation RIGHT SECOND AND THIRD TOES DUE TO DIABETIC ULCERS WITH CELLULITIS;11/14/17 DR. MAI Colonoscopy - MAC (~2003) Extraction of cataract 04/15/17 DR. ARRIETA; LEFT EYE 04/29/17 DR. ARRIETA; RIGHT EYE PROCEDURES REPAIR OF INTESTINE NEC puncture during colonoscopy ACHILLOTENOTOMY L Achilles tendon repair Family History Mother Neoplasm LUNG Father Heart disease Brother Heart disease Sister No problems noted. Grandfather Heart disease Grandfather Heart disease Grandmother Diabetes Grandmother Diabetes Sister No problems noted. Sister No problems noted. Sister Diabetes Sister No problems noted. Brother No problems noted. Brother No problems noted. Social History Smoking/Tobacco Use Status: Former Tobacco Use Smoking risk assessment performed?: Yes Alcohol Intake: never Drug use: Never Substance use type: does not use current occupation: [employer] Current gender identity: female Do you feel safe at home: Yes Do you feel safe in your relationship?: Yes Exam Narrative Exam Narrative: Pleasant morbidly obese woman laying back in a recliner. No oxygen on. Able to talk in complete sentences without taking a breath. Does not cough once during my exam. Color is good. Results Last Vital Signs Temp 36.2 C L 10/12/22 11:27 Pulse 76 10/12/22 11:27 Resp 18 10/12/22 11:27 BP 124/81 10/12/22 11:27 Pulse Ox 95 10/12/22 11:27 Labs 10/12/22 05:25 10/12/22 05:25 Labs: Laboratory Results - last 24 hr 10/08/22 10/11/22 10/12/22 21:45 12:25 05:25 WBC RBC Hgb Hct MCV MCH MCHC RDW Plt Count MPV Immature Gran % Neutrophils % Lymphocytes % Monocytes % Eosinophils % Basophils % Nucleated RBC % Absolute Neutrophils Absolute Lymphocytes Absolute Monocytes Absolute Eosinophils Absolute Basophils Sodium 138 Potassium 3.4 L Chloride 100 Carbon Dioxide 28.4 Anion Gap 9.6 BUN 58 H Creatinine 1.3 H Est GFR (CKD-EPI 2020) 44.24 Glucose 191 H 94 Calcium 9.9 Magnesium 2.0 Ur Strep pneumoniae Ag Negative 10/12/22 05:25 WBC 13.09 H RBC 4.76 Hgb 14.6 Hct 43.9 MCV 92 MCH 30.7 MCHC 33.3 RDW 14.3 Plt Count 192 MPV 11.2 H Immature Gran % 0.7 Neutrophils % 66.7 Lymphocytes % 24.5 Monocytes % 7.8 Eosinophils % 0.0 Basophils % 0.3 Nucleated RBC % 0.0 Absolute Neutrophils 8.73 H Absolute Lymphocytes 3.21 Absolute Monocytes 1.02 H Absolute Eosinophils 0.00 Absolute Basophils 0.04 Sodium Potassium Chloride Carbon Dioxide Anion Gap BUN Creatinine Est GFR (CKD-EPI 2020) Glucose Calcium Magnesium Ur Strep pneumoniae Ag
[2022-10-12] MEDS: Benzonatate 100 MG CAP 200 MG PO ×2 (14:23→19:57)
--- NOTE | 2022-10-12 16:03 | CHAPLAIN ---
Madison and I know each other from previous admissions. She previously lived at home with her , Sascha. She's now lived in the [facility] for three years and according to Care Management notes is a . Madison said she likes living at the [facility], and especially likes her roommate and told me they have become sisters. She and her roommate both got pneumonia recently and Madison said her roommate is in a hospital in [facility] because she also needs dialysis. Madison has been her for six days. She said she's lost track of the days and didn't realize she'd been here that long, but is beginning to feel better.
[2022-10-12 16:14] LABS: Fungitell Qualitative Negative (Negative); Fungitell Quantitative Value <31 pg/mL (<60 pg/mL)
--- NOTE | 2022-10-12 17:31 | IN_ITS ---
Date of service: 10/12/22 Time of Service: 15:08 PT Notes Visit Reasons: Acute On Chronic Diastolic Heart Failure Physical Therapy Inpatient Initial Evaluation Date: 10/12/2022 Referring Doctor: Juliann Mack MD PT Orders: PT CONSULT: Limited ability Precautions: Fall. Standard. Activity as tolerated. Orthopedic shoes on when OOB. Patient Profile/Admitting Diagnosis: Madison is a 72-year-old female with multiple comorbid conditions listed below admitted to the ED on 10/08/2022 due to worsening shortness of breath and was moved to the MedSurg unit for management of HFrEF, interstitial pneumonia with autoimmune features, pulmonary hypertension, BP lower leg cellulitis, type II DM, CKD, AF, essential hypertension, and depression. PMHX: All Active Problems?(Updated 10/08/22 @ 19:44 by Willem Stone MD) Acute on chronic heart failure with preserved ejection fraction (HFpEF) (Acute) Acute febrile illness (Acute) Chronic kidney disease (Chronic) CHF (congestive heart failure) (Chronic) Interstitial pneumonia with autoimmune features (Acute) Total avulsion of nail plate (Acute) Onycholysis (Acute) Fall (Acute) Contusion of left hip (Acute) Abrasion of right knee (Acute) 2+ pitting edema (Acute) Fluid overload, unspecified (Acute) Mixed conductive and sensorineural hearing loss, unspecified (Acute) Otosclerosis of both ears (Acute) Diaphoresis (Acute) Pneumonia (Acute) CAP (community acquired pneumonia) (Acute) Encounter for competency evaluation (Acute) Periprosthetic hip fracture (Acute) Left hip Acute pain of left hip (Acute) Hypokalemia (Acute) Atherosclerotic peripheral vascular disease of extremity (Acute) UTI (urinary tract infection) (Acute) Charcot's joint, left ankle and foot (Acute ~04/2019) Hypomagnesemia (Acute) DVT prophylaxis (Acute) Discharge planning issues (Acute) Uncontrolled diabetes mellitus (Acute) Fungal dermatitis (Acute) Cellulitis of breast (Acute) Cataract (Acute) Cellulitis of lower extremity (Acute 10/31/14) Closed fracture of ankle (Acute) History of Achilles tendon repair (Acute) History of surgical procedure (Acute) Hypothyroidism (Chronic 01/09/13) Perforation of intestine (Acute) Vitamin D deficiency (Chronic 05/07/15) Type 2 diabetes mellitus with diabetic neuropathy (Chronic 05/13/15) [place] [facility] [place]ient ischemic attack (Chronic) Sensorineural hearing loss, bilateral (Chronic 05/24/17) Sciatica (Chronic) right; xray from 02/10 showed scattered spondylosis ant L4-5 on the left and mid lumbar scoliosis convex to the right Pulmonary hypertension (Chronic 04/13/17) Polycythemia (Chronic 03/08/17) Otosclerosis (Chronic 10/14/14) Osteoarthritis (Chronic) right shoulder AC-DJD, Glenohumoral jt. 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 right worse than left Morbid obesity (Chronic) Hyperlipidemia (Chronic) Hypertension (Chronic) Depression (Chronic) Hypothyroidism (Chronic) Restless legs syndrome (Chronic) Sleep apnea with use of continuous positive airway pressure (CPAP) (Chronic) Venous stasis (Chronic) History of tobacco use (Chronic) a.? quit in 1995 after approximately 30 pack years H/O fracture of ankle (Chronic) s.? Left ankle 2012Insomnia (Chronic) Hearing loss (Chronic) Left knee DJD (Chronic) DJD of shoulder (Chronic) a.? on rightArthritis (Chronic) Toe gangrene (Chronic) Atrial fibrillation (Chronic) Pulmonary hypertension due to sleep-disordered breathing (Chronic) Amputated toe of right foot (Chronic) Medical History? Palliative care encounter Pulmonary fibrosis Surgical History? Amputation RIGHT SECOND AND THIRD TOES DUE TO DIABETIC ULCERS WITH CELLULITIS;11/14/17 DR. MAI Colonoscopy - MAC (~2003) Extraction of cataract 04/15/17 DR. ARRIETA; LEFT EYE 04/29/17 DR. ARRIETA; RIGHT EYEPROCEDURES REPAIR OF INTESTINE NEC puncture during colonoscopy ACHILLOTENOTOMY L Achilles tendon repair Social History/Home Situation: Resident of the [facility] for over 3 years now. Wheelchair is her main mode of mobility in the following. Independent with all transfers using stand-pivot technique but does not use FWW -- places wheelchair directly in front of her so she can hold onto both armrests as she turns 180 degrees slowly from bedside chair. Equipment Owned/DME: Wheelchair, FWW at the [facility] Subjective: Feels so much better compared to when she first came in. Hoping to go back to the [facility] where she is a resident of. Hopeful that her hearing aid battery can be replaced soon. Objective: General Observation: Seated on bedside chair. High BMI. On continuous monitoring of oxygen saturation. IV through L UE. B distal legs reddish but no skin opening. Mental Status: Alert and oriented as to person, place, time, and purpose. Able to pay attention, focus, and respond appropriately. Pain: Denies Vital Signs: WNL as closely monitored by nursing staff ROM: Right Upper Extremity: Shoulder Flexion WFL. Shoulder abduction WFL. Elbow flexion WFL. Wrist flexion WFL. Functional opening and closing of hand WFL. Left Upper Extremity: Shoulder Flexion WFL. Shoulder abduction WFL. Elbow flexion WFL. Wrist flexion WFL. Functional opening and closing of hand WFL. Right Lower Extremity: Hip flexion lacks the last 50% of available range due to body habitus. Hip abduction WFL. Knee flexion WFL. Ankle dorsiflexion to neutral only. Ankle plantarflexion WFL. Left Lower Extremity: Hip flexion lacks the last 50% of available range due to body habitus. Hip abduction WFL. Knee flexion WFL. Ankle dorsiflexion to neutral only. Ankle plantarflexion WFL. Strength: Right Upper Extremity: Shoulder flexors 4-/5. Shoulder abductors 4-/5. Elbow flexors 4-/5. Elbow extensors 4-/5. Direct Support Staff Member strong. Left Upper Extremity: Shoulder flexors 4-/5. Shoulder abductors 4-/5. Elbow flexors 4-/5. Elbow extensors 4-/5. Direct Support Staff Member strong. Right Lower Extremity: Hip flexors 3-/5. Hip abductors 4-/5. Knee flexors 4-/5. Knee extensors 4-/5. Ankle dorsiflexors 3-/5. Ankle plantarflexors 4-/5. Left Lower Extremity: Hip flexors 3-/5. Hip abductors 4-/5. Knee flexors 4-/5. Knee extensors 4-/5. Ankle dorsiflexors 3-/5. Ankle plantarflexors 4-/5. Bed Mobility/Transfers: Sit to stand contact-guard assist with FWW Stand to sit contact-guard assist with FWW Bed to reclining chair contact-guard assist with FWW Reclining chair to bed contact-guard assist with FWW Gait: 6 steps from wheelchair to bedside chair using FWW with contact guard assist but with moderate SOB that subsided with rest. No LOB. Denies lightheadedness, chest pain, and headache throughut. Gait appeared stable. Balance: Static Sitting: Normal Dynamic Sitting: Normal Static Standing: Fair Dynamic Standing: Fair Special Tests: Mobility Limitations Standardized Measure [facility] AM-PAC 6 clicks Basic Mobility Inpatient Short Form: Raw Score: 18 CMS Score: 47% deficit Informed Consent/Education: Patient was instructed in purpose of PT consult and plan of care. Agreeable to proceed with established PT POC to achieve personal goals. Assessment: Needs to wear orthopedic shoes when OOB due to previous toe amputation. Moderately short of breath with in-room ambulation but no desaturation to below 90% on room air. Able to do more than what she had been relegated to doing at the SNF. Prognosis for in-room ambulation progression in terms of distance is good using the front-wheeled walker. Will need education and training on safe transfer technique using FWW to reduce fall risk at SNF. Patient presents with clinical signs and symptoms consistent with current/admitting diagnoses that have resulted to mobility limitations, gait instability, generalized weakness, and overall ADL decline as demonstrated by the following impairment level findings: 1. Decreased strength to B UE/LE major muscle groups 2. Impaired sitting/standing balance 3. Impaired activity tolerance 4. Shortness of breath Impairments are contributing to the following functional limitations: 1. Difficulty with ambulation without assistive device and physical assistance 2. Increased completion time for mobility ADL performance 3. Increased risk for falls Patient is assessed as a 71825 mderate complexity based on the following: History: 72-year-old female with past medical history as indicated above Examination: Demonstrable impairment in strength, balance, and mobility level with underlying impairments and functional limitations as exhibited above as w ell as deficit score of 47% utilizing the [facility] Mobility Inpatient Short Form Presentation: Evolving Decision Makin moderate complexity Goals: Goals X1 week 1. Supine-Sit independent 2. Sit-Supine independent 3. Sit-Stand independent 4. Stand-Sit independent with FWW 5. Bed-Chair independent with FWW 6. Chair-Bed independent with FWW 7. Independent gait on level surface with use of FWW for at least 30 feet without report of pain nor dyspnea 8. Good static and dynamic standing balance/tolerance Plan of Care/Treatment Plan: 1-2x/day, 7 days/week x 1 week. Plan of care has been reviewed with the BOOK SALESMAN providing the service under Physical Therapy direction. Initiate Physical Therapy intervention for pain management as needed, strengthening, bed mobility, transfers, gait, stairs, balance training, and use of assistive device. DISCHARGE RECOMMENDATIONS: [] Home with no services [] [] Home with services [specify] [] Home with outpatient PT [] [X] Return to SNF for continued rehabilitation. Patient will benefit from ch[facility] facility placement for continued skilled physical therapy services in order to progress mobility level, strength, and balance. Has good prognosis for independent in-room ambulation using FWW. [] [facility] [] [] SNF versus LTC based on ability to participate and progress [] TREATMENT CODE/TIME: 27297 x 20 minutes, 50621 x 26 minutes beginning at 15:08 PM. Thank you for the opportunity to participate in the care of this patient. Cindy Aaron PT, DPT, CLT [facility] [place], [place]
--- NOTE | 2022-10-12 18:49 | W.PM.PROGNOT ---
Date of Service Date of service: 10/12/22 Time of Service: 18:50 Assessment and Plan Assessment and plan (1) Acute febrile illness: Status: Acute Assessment and plan: Defervesced. Blood cultures negative. Suspect acute bronchitis. Cellulitis could also be contributing. Continue PO keflex. C.Diff negative. (2) Acute on chronic heart failure with preserved ejection fraction (HFpEF): Status: Acute Assessment and plan: Continue furosemide gtt 5 mg/hr. (3) Interstitial pneumonia with autoimmune features: Status: Ruled-out Assessment and plan: Prednisone d/c'ed. (4) Pulmonary hypertension: Status: Chronic Assessment and plan: Agree this is related to KELLEY. Continue BiPAP. Diurese. (5) Bilateral lower leg cellulitis: Status: Chronic Assessment and plan: Continue keflex. . (6) Type 2 diabetes mellitus with diabetic neuropathy: Status: Chronic Assessment and plan: Hypoglycemic this am. Decrease long acting insulin. Continue resistant SSI. Continue Carb counting prandial insulin. Qualifiers: Diabetes mellitus long-term insulin use: with long-term use Qualified Code(s): E11.40 - Type 2 diabetes mellitus with diabetic neuropathy, unspecified; Z79.4 - senior care (current) use of insulin (7) Chronic kidney disease: Status: Chronic Assessment and plan: Cr relatively stable. Monitor on furosemide gtt rate. (8) Atrial fibrillation: Status: Chronic Assessment and plan: Rate controlled. Continue apixaban, toprol XL. (9) Essential hypertension: Status: Chronic Assessment and plan: Continue metoprolol. (10) Depressive disorder: Status: Chronic Assessment and plan: Continue home prozac. (11) DVT prophylaxis: Status: Acute Assessment and plan: Continue apixaban (12) Discharge planning issues: Status: Acute Assessment and plan: DNR/DNI code status; Plan to return to [facility] when better Subjective Subjective Interval history since last seen: Ms Hoyos feels better today. She is on RA and even walked. She denies dizziness, chest pain, shortness of breath at rest, nausea. She is still coughing - nonproductive. Didn't sleep last night. Would like to go home soon. Exam Narrative Exam Narrative: General: Pleasant obese female, A&Ox3, [place], coughing HEENT: EOMI, MMM Heart: RRR, no m/r/g Lungs: wheezing on expiration B, improved Abdomen: soft, nontender, nondistended Extremities: trace BLE edema, wrinkles on BLEs, wearing SCDS over her chronic venous stasis dermatitis, which actually does look less erythematous Objective Last Vital Signs Temp 36.9 C 10/12/22 15:24 Pulse 84 10/12/22 16:03 Resp 16 10/12/22 15:54 BP 122/66 10/12/22 15:24 Pulse Ox 98 10/12/22 16:03 Laboratory Results - last 24 hr 10/09/22 10/12/22 10/12/22 06:30 05:25 05:25 WBC 13.09 H RBC 4.76 Hgb 14.6 Hct 43.9 MCV 92 MCH 30.7 MCHC 33.3 RDW 14.3 Plt Count 192 MPV 11.2 H Immature Gran % 0.7 Neutrophils % 66.7 Lymphocytes % 24.5 Monocytes % 7.8 Eosinophils % 0.0 Basophils % 0.3 Nucleated RBC % 0.0 Absolute Neutrophils 8.73 H Absolute Lymphocytes 3.21 Absolute Monocytes 1.02 H Absolute Eosinophils 0.00 Absolute Basophils 0.04 Sodium 138 Potassium 3.4 L Chloride 100 Carbon Dioxide 28.4 Anion Gap 9.6 BUN 58 H Creatinine 1.3 H Est GFR (CKD-EPI 2020) 44.24 Glucose 94 Calcium 9.9 Magnesium 2.0 B-(1,3)-D-Glucan Quant <31 B-(1,3)-D-Glucan Qual Negative Time Spent with Patient Time Spent with Patient: 25-34 minutes Time was spent: preparing to see the patient(eg.review tests), obtaining and/or reviewing separately otained hiistory, ordering medications,tests, procedures, referring, communicating with other health care transition manager, indepentently interpreting results, counseling the patient and care coordination
[2022-10-12] MEDS: Insulin Glargine 300 UNITS/3 ML PEN 77 UNITS SC (19:57)
[2022-10-12] MEDS: Docusate Sodium 100 MG CAP PO (21:52)
[2022-10-12] MEDS: rOPINIRole 1 MG TAB 4 MG PO (21:52)
[2022-10-12] MEDS: Levothyroxine 75 MCG TAB PO (21:52)
[2022-10-12] MEDS: Melatonin 3 MG TAB 6 MG PO (21:55)
[2022-10-12 23:21] LABS: Blastomyces Ag Result Not Detected; Blastomyces Ag Value Not Detected
[2022-10-13] VITALS (16 sets, daily range): BP systolic 100–126; BP diastolic 65–80; PULSE 60–87; RESP 1–20; TEMP 35.9–36.9; O2SAT 90–100
[2022-10-13 06:39] LABS: Abs Immature Grans 0.11 10^3/uL (0.0-0.06); Absolute Lymphocyte Count 3.53 10^3/uL (1.2-3.4); Absolute Neutrophil Count 7.22 10^3/uL (1.2-6.7); Basophils % 0.8; Eosinophils % 0.8; HCT 46.6 % (36.0-46.0); HGB 15.4 g/dL (11.2-15.7); Immature Grans % 0.9; Lymphocytes % 29.7; MCH 30.5 pg (27.0-33.0); MCV 92 fL (80-95); MPV 10.7 fL (8.0-11.0); Monocytes % 7.1; Neutrophils % 60.7; Platelet Count 202 10^3/uL (130-400); RBC 5.05 10^6/uL (3.93-5.22); RDW 14.5 % (11.7-14.6); RDW-SD 48.5 fL; WBC 11.89 10^3/uL (4.4-10.8)
[2022-10-13 06:48] LABS: Absolute Monocyte Count 0.84 10^3/uL (0.1-0.8)
[2022-10-13] MEDS: guaiFENesin/D-METHORPHAN HB 5 ML CUP 10 ML PO (06:58)
[2022-10-13 07:09] LABS: Anion Gap 11.9 mmol/L (3-11); BUN 61 mg/dL (7-18); CO2 27.1 mmol/L (21.0-32.0); CREATININE 1.5 mg/dL (0.55-1.02); Calcium 9.6 mg/dL (8.5-10.1); Chloride 99 mmol/L (98-107); Estimated GFR 37.26 (mL/min/1.73m2); Glucose 87 mg/dL (74-106); Potassium 3.5 mmol/L (3.5-5.1); Sodium 138 mmol/L (136-145)
[2022-10-13 07:32] LABS: Procalcitonin 0.2 ng/mL
[2022-10-13] MEDS: Tiotropium Bromide-Respimat 10 PUFF INH 2 PUFF IH (07:40)
[2022-10-13] MEDS: Budesonide/Formoterol 80/4.5 6.9 GM 60 PUFF INH IH ×2 (07:40→19:36)
[2022-10-13] MEDS: Albuterol/Ipratropium 3 ML UPD VIAL UPD ×3 (07:45→19:35)
[2022-10-13] MEDS: Magnesium Oxide 400 MG TAB PO (08:35)
[2022-10-13] MEDS: Lactobacillus Acidophilus CAP 1 CAP PO (08:35)
[2022-10-13] MEDS: Potassium Chloride 20 MEQ TABCR 40 MEQ PO (08:35)
[2022-10-13] MEDS: Vitamins B Comp w/C TAB 1 TAB PO (08:35)
[2022-10-13] MEDS: Cephalexin 250 MG CAP PO ×3 (08:35→19:35)
[2022-10-13] MEDS: Calcium 600mg/Vit D 200U TAB 1 TAB PO ×2 (08:35→19:35)
[2022-10-13] MEDS: Apixaban 5 MG TAB PO ×2 (08:35→19:36)
[2022-10-13] MEDS: Benzonatate 100 MG CAP 200 MG PO ×3 (08:35→19:35)
[2022-10-13] MEDS: Omeprazole 20 MG CAPCR PO (08:35)
[2022-10-13] MEDS: Metoprolol CR 50 MG TABCR PO (08:35)
[2022-10-13] MEDS: Montelukast 10 MG TAB PO (08:35)
[2022-10-13] MEDS: Atorvastatin 40 MG TAB PO (08:35)
[2022-10-13] MEDS: FLUoxetine 10 MG TAB PO (08:35)
[2022-10-13] MEDS: guaiFENesin 600 MG TABCR PO (08:35)
[2022-10-13] MEDS: Insulin Glargine 300 UNITS/3 ML PEN 77 UNITS SC ×2 (08:36→19:35)
[2022-10-13] MEDS: Nystatin POWDER 60 GM JAR TP ×3 (08:37→19:34)
[2022-10-13] MEDS: Fluticasone NASAL SPRAY 16 GM BTL NS ×2 (08:37→19:36)
[2022-10-13] MEDS: Insulin Aspart 300 UNITS/3 ML PEN SC ×2 (08:37→17:31)
--- NOTE | 2022-10-13 08:38 | PDOC.CMPRO ---
- If Service Date Differs Date of service: 10/13/22 Time of Service: 08:38 Care Management Progress Note S/O: Madison was sitting up in a chair when CM met with her. She stated that she was having a rough morning. She explained that she was more short of breath and did not sleep well. Additional cough medicine was ordered to address this. Madison has lost 11 kg since admission with the use of diuretics and her vital signs are stable. SANDY received a call from [facility] today and during the conversation was asked to inform Madison that her roommate Sunita is back. CM relayed the message and Madison smiled broadly and stated that she was really happy to have her back. Apparently she had been in another hospital for a couple of weeks. Madison shared that she hopes to be able to return to her home at the [facility] soon as well. A: 72 year old female admitted to [facility] 10/09/22 for acute on chronic diastolic heart failure P: Madison will return to the [facility] when medically cleared by provider. She will follow up with her community providers, pulmonology and her plan of care as directed. She will be transported back to the [facility] via RCT w/c van when ready. SANDY will continue to follow.
--- NOTE | 2022-10-13 09:47 | W.PM.PROGNOT ---
Date of Service Date of service: 10/13/22 Time of Service: 09:47 Assessment and Plan Assessment and plan (1) Acute febrile illness: Status: Acute Assessment and plan: Defervesced. Blood cultures negative. Suspect acute bronchitis. Cellulitis could also be contributing. Continue PO keflex. C.Diff negative. Professional time spent interviewing and examining patient, discussion of goals of care with hospital team (care management, nursing and consulting professionals) was 30 minutes. (2) Acute on chronic heart failure with preserved ejection fraction (HFpEF): Status: Acute Assessment and plan: dc furosemide drip. resume po torsemide and add spironolactone. May need zaroxolyn once or twice a week to boost effect of her torsemide (3) Interstitial pneumonia with autoimmune features: Status: Ruled-out Assessment and plan: Prednisone d/c'ed. Patient has ILD but per Dr. Jones, she is not suffering from flare up. (4) Pulmonary hypertension: Status: Chronic Assessment and plan: Agree this is related to KELLEY. Patient refuses to use BIPAP/CPAP continue diuretics for HFPEF as noted above (5) Bilateral lower leg cellulitis: Status: Chronic Assessment and plan: Continue keflex. . (6) Type 2 diabetes mellitus with diabetic neuropathy: Status: Chronic Assessment and plan: not hypoglycemic this morning but her morning glucose remains on the lower side at 91. She is currently on Lantus 77 units bid (decr from 95 units bid). I will decrease her evening dose of Lantus but continue the current morning dose. I will decrease her evening by 10%. continue CHO coverage at 2:10 ratio and novolog insulin resistant sliding scale Qualifiers: Diabetes mellitus detention insulin use: with meterman use Qualified Code(s): E11.40 - Type 2 diabetes mellitus with diabetic neuropathy, unspecified; Z79.4 - shelter (current) use of insulin (7) Chronic kidney disease: Status: Chronic Assessment and plan: Cr relatively stable. continue daily BMP (8) Atrial fibrillation: Status: Chronic Assessment and plan: Rate controlled. Continue apixaban, toprol XL. (9) Essential hypertension: Status: Chronic Assessment and plan: Continue metoprolol. (10) Depressive disorder: Status: Chronic Assessment and plan: Continue home prozac. (11) DVT prophylaxis: Status: Acute Assessment and plan: Continue apixaban (12) Discharge planning issues: Status: Acute Assessment and plan: DNR/DNI code status; Plan to return to [facility] when stable on oral diuretics. probably in the next 24 to 48 hr Subjective Subjective Interval history since last seen: Patient complaining of nonproductive cough despite being on Tessalon and multiple forms of guaifenesin. I have added some Tussionex to her cough medications. She is not hypoxemic. Leg edema and erythema are markedly improved. He wt is down to 106.2 kg (over 11 kg drop since admission). She remains on lasix drip at 5 mg/hr. I will change her to oral torsemide and spironolactone but give her a dose of zaroxolyn. She had been on quite a high dose of torsemide 100 mg bid. Based on her current lasix useage, she is going through 120 mg of iv lasix per day. Torsemide is twice as potent as lasix thus 100 mg torsemide is similar to 200 mg lasix. I will start her back on torsemide 100 mg daily. Continue to monitor her BMP. Adding spironolactone should help w/ preventing hypokalemia. I think if she is tolerating this regimen, then she could return to SNF in the next 24 to 48hr. She will remain on Keflex for her cellulitis of her legs. Exam Narrative Exam Narrative: Madison is alert, she tends to doze off during the day but she awakens readily, she is not hypoxic. SPO2 96% on room air. She should wear CPAP at night or during naps during the day but refuses to do so Lungs: clear anteriorly; faint rales at bases posteriorly Heart: irregularly irregular at controllled rate; no murmur or rub Abdomen: obese, soft, nontender Legs: no pitting edema now; erythema has improved remarkable, just more a salmon color and fading Objective Last Vital Signs Temp 36.0 C L 10/13/22 08:04 Pulse 84 10/13/22 08:04 Resp 16 10/13/22 08:04 BP 113/76 10/13/22 08:04 Pulse Ox 96 10/13/22 08:04 Laboratory Results - last 24 hr 10/09/22 10/09/22 10/09/22 06:30 11:10 11:10 WBC RBC Hgb Hct MCV MCH MCHC RDW Plt Count MPV Immature Gran % Neutrophils % Lymphocytes % Monocytes % Eosinophils % Basophils % Nucleated RBC % Absolute Neutrophils Absolute Lymphocytes Absolute Monocytes Absolute Eosinophils Absolute Basophils Sodium Potassium Chloride Carbon Dioxide Anion Gap BUN Creatinine Est GFR (CKD-EPI 2020) Glucose Calcium Magnesium Procalcitonin Blastomyces Ag Result Not Detected Blastomyces Ag Comment Not Detected Urine Histoplasma Ag Not Detected U Histoplasma Ag Index Not Detected B-(1,3)-D-Glucan Quant <31 B-(1,3)-D-Glucan Qual Negative 10/13/22 10/13/22 10/13/22 06:05 06:05 06:05 WBC 11.89 H RBC 5.05 Hgb 15.4 Hct 46.6 H MCV 92 MCH 30.5 MCHC 33.0 RDW 14.5 Plt Count 202 MPV 10.7 Immature Gran % 0.9 Neutrophils % 60.7 Lymphocytes % 29.7 Monocytes % 7.1 Eosinophils % 0.8 Basophils % 0.8 Nucleated RBC % 0.0 Absolute Neutrophils 7.22 H Absolute Lymphocytes 3.53 H Absolute Monocytes 0.84 H Absolute Eosinophils 0.10 Absolute Basophils 0.10 Sodium 138 Potassium 3.5 Chloride 99 Carbon Dioxide 27.1 Anion Gap 11.9 H BUN 61 H Creatinine 1.5 H Est GFR (CKD-EPI 2020) 37.26 Glucose 87 Calcium 9.6 Magnesium 2.0 Procalcitonin 0.2 Blastomyces Ag Result Blastomyces Ag Comment Urine Histoplasma Ag U Histoplasma Ag Index B-(1,3)-D-Glucan Quant B-(1,3)-D-Glucan Qual Time Spent with Patient Time Spent with Patient: 25-34 minutes Time was spent: preparing to see the patient(eg.review tests), ordering medications,tests, procedures, referring, communicating with other health inspector health care facilities (Discussion w/ primary nurse), indepentently interpreting results, counseling the patient and care coordination
[2022-10-13] MEDS: Spironolactone 25 MG TAB 12.5 MG PO (10:56)
[2022-10-13] MEDS: metOLazone 2.5 MG TAB PO (10:56)
[2022-10-13] MEDS: Torsemide 100 MG TAB PO (10:57)
[2022-10-13 12:09] LABS: Lab Add On Test DONE
[2022-10-13 12:31] LABS: NT-proBNP 1322 pg/mL (<300)
--- NOTE | 2022-10-13 13:55 | PT.INTREAT ---
Date of service: 10/13/22 Time of Service: 11:45 PT Notes Visit Reasons: Acute On Chronic Diastolic Heart Failure Inpatient Physical Therapy Treatment Note [facility] Date: 10/13/2022 SUBJECTIVE: Madison is pleasant and agreeable to participating in PT. She reports that she has been feeling dizzy intermittently today. She believes this is caused by her blood sugars, which are low compared to her normal blood sugars. OBJECTIVE: Pain: No c/o pain BED MOBILITY/TRANSFERS Sit-stand: Min A Stand-sit: CGA with cueing for safety GAIT Assistive Device: FWW Weight bearing: Full Assist: CGA Distance: 5' Deviation: Standing rest, c/o increased fatigue, some SOB THEREX: Patient was instructed in a LE strengthening program, completed in a long-sitting position, to include: ankle pumps, quad sets, glute sets, heel slides and hip abduction. Patient requires assist with hip abduction and heel slides on the left due to stiffness and weakness. ASSESSMENT: Patient tolerated session with complaint of increased fatigue and SOB with gait training. She was able to tolerate a slight progression in gait distance with FWW support and CGA. PLAN: Continue with global strengthening and general conditioning for improved activity tolerance. TREATMENT CODE/TIME: 25 minutes; 72299, [id number] (11:45)
[2022-10-13] MEDS: Docusate Sodium 100 MG CAP PO (21:03)
[2022-10-13] MEDS: rOPINIRole 1 MG TAB 4 MG PO (21:03)
[2022-10-13] MEDS: Levothyroxine 75 MCG TAB PO (21:03)
[2022-10-13] MEDS: Acetaminophen 500 MG TAB 1000 MG PO (21:03)
[2022-10-13] MEDS: Melatonin 3 MG TAB 6 MG PO (21:03)
[2022-10-13] MEDS: guaiFENesin/CODEINE PHOSPHATE 10 ML CUP PO (21:31)
[2022-10-14] VITALS (22 sets, daily range): BP systolic 108–132; BP diastolic 72–78; PULSE 63–104; RESP 7–22; TEMP 36–36.8; O2SAT 86–100
--- NOTE | 2022-10-14 | DI.RAD_ITS ---
Exam(s) XR ABDOMEN FLAT UPRIGHT EXAM: XR ABDOMEN FLAT UPRIGHT CLINICAL HISTORY: nausea, dyspnea, constipation. TECHNIQUE: 2D digital imaging was performed. COMPARISON: No exams were available for comparison FINDINGS: Supine and decubitus views: Bowel gas is nonspecific. No obvious bowel obstruction. No obvious free intraperitoneal air. Visua lized lung bases are clear. Left hip prosthesis is noted. IMPRESSION: Nonspecific bowel gas pattern. No free air. No obvious bowel obstruction. DATA REPOSITORY: RADIATION DOSE DELIVERED:
[2022-10-14 07:04] LABS: Anion Gap 12.7 mmol/L (3-11); BUN 72 mg/dL (7-18); CO2 28.3 mmol/L (21.0-32.0); CREATININE 1.8 mg/dL (0.55-1.02); Calcium 10.1 mg/dL (8.5-10.1); Chloride 95 mmol/L (98-107); Estimated GFR 29.94 (mL/min/1.73m2); Glucose 67 mg/dL (74-106); Potassium 3.2 mmol/L (3.5-5.1); Sodium 136 mmol/L (136-145)
[2022-10-14] MEDS: Potassium Chloride 20 MEQ TABCR 40 MEQ PO (08:13)
[2022-10-14] MEDS: Torsemide 100 MG TAB PO (08:14)
[2022-10-14] MEDS: Spironolactone 25 MG TAB 12.5 MG PO (08:14)
[2022-10-14] MEDS: Calcium 600mg/Vit D 200U TAB 1 TAB PO ×2 (08:14→20:29)
[2022-10-14] MEDS: Benzonatate 100 MG CAP 200 MG PO (08:14)
[2022-10-14] MEDS: Montelukast 10 MG TAB PO (08:14)
[2022-10-14] MEDS: FLUoxetine 10 MG TAB PO (08:15)
[2022-10-14] MEDS: Vitamins B Comp w/C TAB 1 TAB PO (08:15)
[2022-10-14] MEDS: Magnesium Oxide 400 MG TAB PO (08:15)
[2022-10-14] MEDS: Omeprazole 20 MG CAPCR PO (08:15)
[2022-10-14] MEDS: Atorvastatin 40 MG TAB PO (08:15)
[2022-10-14] MEDS: Lactobacillus Acidophilus CAP 1 CAP PO (08:16)
[2022-10-14] MEDS: Apixaban 5 MG TAB PO ×2 (08:16→20:29)
[2022-10-14] MEDS: Metoprolol CR 50 MG TABCR PO (08:16)
[2022-10-14] MEDS: Cephalexin 250 MG CAP PO ×3 (08:16→20:29)
[2022-10-14] MEDS: Fluticasone NASAL SPRAY 16 GM BTL NS ×2 (08:17→20:25)
[2022-10-14] MEDS: Acetaminophen 500 MG TAB 1000 MG PO ×2 (08:27→15:31)
--- NOTE | 2022-10-14 08:36 | NUR.NOTE ---
Nursing Note: asked charge nurse faisal tobar if she could speak with provider regarding pt new nausea. she will f/u with new orders. charge nurse also made aware of low k level and affected kidney levels.
[2022-10-14] MEDS: Budesonide/Formoterol 80/4.5 6.9 GM 60 PUFF INH IH ×2 (08:42→20:04)
[2022-10-14] MEDS: Albuterol/Ipratropium 3 ML UPD VIAL UPD ×4 (08:42→20:05)
[2022-10-14] MEDS: Tiotropium Bromide-Respimat 10 PUFF INH 2 PUFF IH (08:42)
[2022-10-14] MEDS: Ondansetron 4 MG/2 ML VIAL IVP (09:16)
[2022-10-14] MEDS: Insulin Glargine 300 UNITS/3 ML PEN 77 UNITS SC (09:51)
[2022-10-14] MEDS: Nystatin POWDER 60 GM JAR TP ×3 (09:52→20:25)
[2022-10-14] MEDS: Insulin Aspart 300 UNITS/3 ML PEN SC ×2 (12:07→12:09)
--- NOTE | 2022-10-14 12:15 | CMPROGNOTE_ITS ---
- If Service Date Differs Date of service: 10/14/22 Time of Service: 12:15 Care Management Progress Note S/O: Madison remains inpatient, per MD she may be ready to return to the [facility] as soon as tomorrow; CM notified the [facility] and provided updated clinicals. CM continues to follow. A: 72 year old female admitted to [facility] 10/09/22 for acute on chronic diastolic heart failure P: Madison will return to the [facility] when medically cleared by provider. She will follow up with her community providers, pulmonology and her plan of care as directed. She will be transported back to the [facility] via RCT w/c van when ready. CM will continue to follow.
--- NOTE | 2022-10-14 12:54 | PT.INTREAT ---
Date of service: 10/14/22 Time of Service: 10:30 PT Notes Visit Reasons: Acute On Chronic Diastolic Heart Failure Inpatient Physical Therapy Treatment Note [facility] Date: 10/14/2022 SUBJECTIVE: Madison is pleasant and agreeable to participating in PT. She reports that she has been feeling nauseous today. OBJECTIVE: Pain: No c/o pain BED MOBILITY/TRANSFERS Sit-stand: Min A Stand-sit: CGA with cueing for safety GAIT: Held gait training THEREX: Patient was instructed in a LE strengthening program, completed in both standing and seated positions, to include: ankle pumps, standing marches, LAQ, hip flexion and hip abduction. ASSESSMENT: Patient tolerated session with complaint of increased fatigue and SOB with gait training. She continues to demonstrate limited activity tolerance and SOB with all activity. PLAN: Continue with global strengthening and general conditioning for improved activity tolerance. TREATMENT CODE/TIME: 15 minutes; 46769 (10:30)
[2022-10-14] MEDS: POTASSIUM CHLORIDE 10 MEQ/100 ML BAG 100 MEQ IVPB ×2 (13:15→15:33)
[2022-10-14] MEDS: Potassium Chloride 10 MEQ CAPCR 20 MEQ PO ×2 (13:15→20:29)
[2022-10-14] MEDS: Benzonatate 200 MG CAP PO ×2 (13:16→20:29)
--- NOTE | 2022-10-14 14:26 | PGE_ITS ---
Date of Service Date of service: 10/14/22 Time of Service: 14:26 Assessment and Plan Assessment and plan (1) Bilateral lower leg cellulitis: Status: Chronic Assessment and plan: patient presented w/ acute febrile illness; CXR did not show any lobar consolidation but demonstrates diffuse interstitial changes and cardiomegaly. She has chronic bilateral leg edema and was felt to have acute cellulitis. She has chronic ILD but was not deemed to be in an acute exacerbation per Dr. Jones hence steroids were stopped. Patient's cellulitis has responded nicely to iv antibiotics and now is on keflex her intersitial changes and bilateral leg edema were associated w/ acute on chronic exacerbation of HFPEF and she underwent iv lasix drip and yesterday was changed to oral torsemide along w/ spironolactone. However she is now pre-renal azotemia and having nausea and constipation. I have put her diuretics on hold (spironolactone and torsemide; iv lasix drip was put on hold prior to the po torsemide but has since been discontinued). She is not on ARB or JESSIE-I. . (2) Acute on chronic heart failure with preserved ejection fraction (HFpEF): Status: Acute Assessment and plan: diuretics currently on hold d/t prerenal azotemia. Patient now being given NS at 50 mL/hr x 500 mL to correct over-diuresis (3) Prerenal azotemia: Status: Acute Assessment and plan: as above. monitor urine output (4) Constipation: Status: Acute Assessment and plan: will give dulcolax suppository, oral polyethylene glycocol and make sure she is on stool softeners; may need Relistor; check KUB to r/o obstruction (5) Interstitial pneumonia with autoimmune features: Status: Ruled-out Assessment and plan: Prednisone d/c'ed. Patient has ILD but per Dr. Jones, she is not suffering from flare up. (6) Pulmonary hypertension: Status: Chronic Assessment and plan: Agree this is related to KELLEY. Patient refuses to use BIPAP/CPAP diuretics for HFPEF on hold d/t azotemia (7) Type 2 diabetes mellitus with diabetic neuropathy: Status: Chronic Assessment and plan: patient had hypoglycemia this morning glucose of 67. I have decreased her dose of Lantus from 77 to 67 units at night and 77 untis during the day. She remains on novolog sliding scale insulin resistant levels along w/ CHO coverage at 2 units per 10 gm CHO. Qualifiers: Diabetes mellitus watermelon inspector insulin use: with senior care use Qualified Code(s): E11.40 - Type 2 diabetes mellitus with diabetic neuropathy, unspecified; Z79.4 - predatory animal exterminator (current) use of insulin (8) Chronic kidney disease: Status: Chronic Assessment and plan: woresening azotemia w/ rising BUN and creatinine BUN 61>72 and creatinine 1.3>1.5>1.8; diuretics on hold but were already given this morning therefore I have ordered small fluid bolus NS 500 mL over 10 hrs. will monitor her urine output; repeat BMP in the a.m. (9) Atrial fibrillation: Status: Chronic Assessment and plan: Rate controlled. She is actually in atrial flutter Continue apixaban, toprol XL. (10) Essential hypertension: Status: Chronic Assessment and plan: Continue metoprolol. (11) Depressive disorder: Status: Chronic Assessment and plan: Continue home prozac. (12) DVT prophylaxis: Status: Acute Assessment and plan: Continue apixaban (13) Discharge planning issues: Status: Acute Assessment and plan: DNR/DNI code status; Plan to return to [facility] when stable on oral diuretics. probably in the next 24 to 48 hr Subjective Subjective Interval history since last seen: patient c/o nausea, no abdominal pain but also no BM since admission. she is passing flatus. No dyspnea although her nurse noting that while sleeping her SPO2 dropped to 86% but came up w/ 2 lpm to 95%. Exam Narrative Exam Narrative: Morbidly obese female lying in bed in upright position. she is alert/oriented in NAD other than her nausea Lungs: clear anteriorly; but some basilar rales on the right posteriorly; none on the left Heart; irregularly irregular (telemetry demonstrates aflutter at controlled rate in the 70's to 80's) Abdomen: obeses, soft, nontender w/ active bowel sounds Legs: the erythema has markedly improved; no edema Objective Last Vital Signs Temp 36.1 C L 10/14/22 11:29 Pulse 74 10/14/22 12:54 Resp 19 10/14/22 13:25 BP 116/78 10/14/22 11:29 Pulse Ox 92 10/14/22 13:27 Laboratory Results - last 24 hr 10/14/22 05:51 Sodium 136 Potassium 3.2 L Chloride 95 L Carbon Dioxide 28.3 Anion Gap 12.7 H BUN 72 H Creatinine 1.8 H Est GFR (CKD-EPI 2020) 29.94 Glucose 67 L Calcium 10.1 Time Spent with Patient Time Spent with Patient: 35-49 minutes Time was spent: preparing to see the patient(eg.review tests), ordering medications,tests, procedures, referring, communicating with other health health care law specialist, indepentently interpreting results, counseling the patient and care coordination
[2022-10-14] MEDS: Prochlorperazine 10 MG/2 ML VIAL 5 MG IVP (15:31)
[2022-10-14] MEDS: Senna TAB 1 TAB PO (15:32)
[2022-10-14] MEDS: Polyethylene Glycol 3350 17 GM PACKET PO (15:32)
[2022-10-14] MEDS: Bisacodyl 10 MG SUPP PR (15:50)
[2022-10-14] MEDS: Glucose Oral Gel 15 GM/37.5 GM TUBE PO ×2 (21:18→21:45)
[2022-10-14] MEDS: Levothyroxine 75 MCG TAB PO (22:13)
[2022-10-14] MEDS: rOPINIRole 1 MG TAB 4 MG PO (22:13)
[2022-10-14] MEDS: Docusate Sodium 100 MG CAP PO (22:13)
[2022-10-15] VITALS (14 sets, daily range): BP systolic 103–127; BP diastolic 64–74; PULSE 75–94; RESP 8–24; TEMP 36.3–37.2; O2SAT 90–97
[2022-10-15 06:51] LABS: Abs Immature Grans 0.13 10^3/uL (0.0-0.06); Absolute Basophil Count 0.08 10^3/uL (0.0-0.2); Absolute Eosinophil Count 0.14 10^3/uL (0.0-0.7); Absolute Monocyte Count 1.09 10^3/uL (0.1-0.8); Basophils % 0.7; Eosinophils % 1.2; HCT 45.3 % (36.0-46.0); HGB 15.2 g/dL (11.2-15.7); Immature Grans % 1.1; MCH 30.8 pg (27.0-33.0); MCHC 33.6 % (32.0-36.0); MCV 92 fL (80-95); MPV 11.2 fL (8.0-11.0); Monocytes % 9.4; Neutrophils % 71.6; Platelet Count 216 10^3/uL (130-400); RBC 4.93 10^6/uL (3.93-5.22); RDW 14.5 % (11.7-14.6); RDW-SD 48.9 fL; WBC 11.59 10^3/uL (4.4-10.8)
[2022-10-15 06:52] LABS: Absolute Lymphocyte Count 1.85 10^3/uL (1.2-3.4)
[2022-10-15 07:14] LABS: Anion Gap 10.5 mmol/L (3-11); BUN 76 mg/dL (7-18); CO2 26.5 mmol/L (21.0-32.0); CREATININE 2.1 mg/dL (0.55-1.02); Calcium 9.4 mg/dL (8.5-10.1); Chloride 94 mmol/L (98-107); Estimated GFR 24.88 (mL/min/1.73m2); Glucose 242 mg/dL (74-106); NT-proBNP 973 pg/mL (<300); Potassium 4.3 mmol/L (3.5-5.1); Sodium 131 mmol/L (136-145)
[2022-10-15] MEDS: Potassium Chloride 20 MEQ TABCR 40 MEQ PO (08:18)
[2022-10-15] MEDS: FLUoxetine 10 MG TAB PO (08:18)
[2022-10-15] MEDS: Potassium Chloride 10 MEQ CAPCR 20 MEQ PO (08:18)
[2022-10-15] MEDS: Omeprazole 20 MG CAPCR PO (08:18)
[2022-10-15] MEDS: Benzonatate 200 MG CAP PO ×3 (08:19→22:17)
[2022-10-15] MEDS: Vitamins B Comp w/C TAB 1 TAB PO (08:19)
[2022-10-15] MEDS: Atorvastatin 40 MG TAB PO (08:19)
[2022-10-15] MEDS: Metoprolol CR 50 MG TABCR PO (08:19)
[2022-10-15] MEDS: Montelukast 10 MG TAB PO (08:19)
[2022-10-15] MEDS: Apixaban 5 MG TAB PO ×2 (08:19→22:17)
[2022-10-15] MEDS: Nystatin POWDER 60 GM JAR TP ×3 (08:19→22:20)
[2022-10-15] MEDS: Lactobacillus Acidophilus CAP 1 CAP PO (08:19)
[2022-10-15] MEDS: Magnesium Oxide 400 MG TAB PO (08:19)
[2022-10-15] MEDS: Cephalexin 250 MG CAP PO ×3 (08:19→22:16)
[2022-10-15] MEDS: Fluticasone NASAL SPRAY 16 GM BTL NS ×2 (08:19→22:18)
[2022-10-15] MEDS: Calcium 600mg/Vit D 200U TAB 1 TAB PO ×2 (08:19→22:17)
[2022-10-15] MEDS: Polyethylene Glycol 3350 17 GM PACKET PO (08:19)
[2022-10-15] MEDS: Insulin Glargine 300 UNITS/3 ML PEN 60 UNITS SC ×2 (08:20→22:18)
[2022-10-15] MEDS: Insulin Aspart 300 UNITS/3 ML PEN SC ×6 (08:20→17:09)
[2022-10-15] MEDS: Budesonide/Formoterol 80/4.5 6.9 GM 60 PUFF INH IH ×2 (08:37→20:58)
[2022-10-15] MEDS: Tiotropium Bromide-Respimat 10 PUFF INH 2 PUFF IH (08:37)
[2022-10-15] MEDS: Albuterol/Ipratropium 3 ML UPD VIAL UPD ×3 (08:38→15:53)
--- NOTE | 2022-10-15 09:21 | CMPROGNOTE_ITS ---
- If Service Date Differs Date of service: 10/15/22 Time of Service: 09:21 Care Management Progress Note S/O: Madison remains inpatient, per MD she is not yet ready to return to the [facility] due to hypoglycemia; CM notified the [facility] and provided updated clinicals. CM continues to follow. A: 72 year old female admitted to [facility] 10/09/22 for acute on chronic diastolic heart failure P: Madison will return to the [facility] when medically cleared by provider. She will follow up with her community providers, pulmonology and her plan of care as directed. She will be transported back to the [facility] via RCT w/c van when ready. CM will continue to follow.
[2022-10-15] MEDS: Acetaminophen 500 MG TAB 1000 MG PO ×3 (10:27→22:15)
--- NOTE | 2022-10-15 15:04 | PT.INTREAT ---
Date of service: 10/15/22 Time of Service: 14:10 PT Notes Visit Reasons: Acute On Chronic Diastolic Heart Failure Inpatient Physical Therapy Treatment Note [facility] Date: 10/15/2022 SUBJECTIVE: Madison is pleasant and agreeable to participating in PT. She reports that she is feeling a little better today. She would like to try to get up and walk. OBJECTIVE: Pain: No c/o pain BED MOBILITY/TRANSFERS Sit-stand: Min A - Mod A Stand-sit: CGA with cueing for safety Chair-bed: CGA Performed functional [id number] x5. GAIT: Assistive Device: FWW Weight bearing: Full Assist: CGA Distance: 5 steps x2 Deviation: Slow pacing, increased fatigue TOILETING: Patient toileted with assist. ASSESSMENT: Patient tolerated session with complaint of increased fatigue and SOB with gait training. She continues to demonstrate limited activity tolerance and SOB with all activity. PLAN: Continue with global strengthening and general conditioning for improved activity tolerance. TREATMENT CODE/TIME: 40 minutes; 29362 x3 (14:10)
--- NOTE | 2022-10-15 16:12 | W.PM.PROGNOT ---
Date of Service Date of service: 10/15/22 Time of Service: 16:12 Assessment and Plan Assessment and plan (1) Bilateral lower leg cellulitis: Status: Chronic Assessment and plan: continue keflex. day #5 ; had 4 days of iv antibiotics including cefepime and doxycycline. will continue through the weekend on the keflex but probably can dc at discharge or will only need a couple more days. Will repeat her inflammatory markers in the morning. (2) Acute on chronic heart failure with preserved ejection fraction (HFpEF): Status: Acute Assessment and plan: diuretics on hold d/t azotemia. Actually could use a little iv fluids overnight. repeat her BMP in the morning (3) Prerenal azotemia: Status: Acute Assessment and plan: as above. monitor urine output (4) Constipation: Status: Acute (5) Interstitial pneumonia with autoimmune features: Status: Ruled-out Assessment and plan: Prednisone d/c'ed. Patient has ILD but per Dr. Jones, she is not suffering from flare up. (6) Pulmonary hypertension: Status: Chronic Assessment and plan: Agree this is related to KELLEY. Patient refuses to use BIPAP/CPAP diuretics for HFPEF on hold d/t azotemia (7) Type 2 diabetes mellitus with diabetic neuropathy: Status: Chronic Assessment and plan: had some problems w/ hypoglycemia yesterday but was not eating d/t nausea and constipation; now she is eating I expect her low glucose levels to not be a problems. nevertheless, her lantus has been decreased. Qualifiers: Diabetes mellitus weed sprayer insulin use: with residential use Qualified Code(s): E11.40 - Type 2 diabetes mellitus with diabetic neuropathy, unspecified; Z79.4 - house registry rn (current) use of insulin (8) Chronic kidney disease: Status: Chronic Assessment and plan: baseline creatinine is around 1.5 and BUN around 35 to 40. holding diuretics for now. not using JESSIE-I nor ARB nor Entresto until her renal fxn recovers (9) Atrial fibrillation: Status: Chronic Assessment and plan: Rate controlled. She is actually in atrial flutter Continue apixaban, toprol XL. (10) Essential hypertension: Status: Chronic Assessment and plan: Continue metoprolol. (11) Depressive disorder: Status: Chronic Assessment and plan: Continue home prozac. (12) DVT prophylaxis: Status: Acute Assessment and plan: Continue apixaban (13) Discharge planning issues: Status: Acute Assessment and plan: DNR/DNI code status; Plan to return to [facility] when stable on oral diuretics. probably in the next 24 to 48 hr Subjective Subjective Interval history since last seen: Madison is feeling better since she had a good BM. No nausea or abdominal pains today. However her glucose was running low and her renal function remains impaired. Her insulin was adjusted and her night time Lantus was held last night. BUN and creatinine remain elevated at 76 and 2.1. Her diuretics are on hold. Exam Narrative Exam Narrative: Yenny is alert and oriented. She states that she just wants to go home to the [facility]. NAD Neck: obese, no overt JVD Lungs: clear Heart: irregularly irregular, controlled rate Abdomen: obese, but soft and nontender, normal bowel sounds Legs: no edema, erythema is resolving, now pink over lower tibia and ankles; she is complaing of her left leg hurts all the way to her hip Objective Last Vital Signs Temp 36.9 C 10/15/22 11:15 Pulse 92 H 10/15/22 15:53 Resp 24 10/15/22 11:15 BP 122/65 10/15/22 11:15 Pulse Ox 94 10/15/22 15:53 Laboratory Results - last 24 hr 10/15/22 10/15/22 06:30 06:30 WBC 11.59 H RBC 4.93 Hgb 15.2 Hct 45.3 MCV 92 MCH 30.8 MCHC 33.6 RDW 14.5 Plt Count 216 MPV 11.2 H Immature Gran % 1.1 Neutrophils % 71.6 Lymphocytes % 16.0 Monocytes % 9.4 Eosinophils % 1.2 Basophils % 0.7 Nucleated RBC % 0.0 Absolute Neutrophils 8.30 H Absolute Lymphocytes 1.85 Absolute Monocytes 1.09 H Absolute Eosinophils 0.14 Absolute Basophils 0.08 Sodium 131 L Potassium 4.3 D Chloride 94 L Carbon Dioxide 26.5 Anion Gap 10.5 BUN 76 H Creatinine 2.1 H Est GFR (CKD-EPI 2020) 24.88 Glucose 242 H Calcium 9.4 NT-Pro-B Natriuret Pep 973 H Time Spent with Patient Time Spent with Patient: 25-34 minutes (30 minutes) Time was spent: preparing to see the patient(eg.review tests), ordering medications,tests, procedures, indepentently interpreting results, counseling the patient and care coordination
[2022-10-15] MEDS: Lactated Ringers 500 ML 75 ML IV (17:18)
[2022-10-15] MEDS: Ipratropium/Albuterol 4 GM 120 PUFF INH IH (21:40)
[2022-10-15] MEDS: Melatonin 3 MG TAB 6 MG PO (22:15)
[2022-10-15] MEDS: rOPINIRole 1 MG TAB 4 MG PO (22:15)
[2022-10-15] MEDS: Levothyroxine 75 MCG TAB PO (22:16)
[2022-10-15] MEDS: Docusate Sodium 100 MG CAP PO (22:16)
[2022-10-15] MEDS: oxyCODONE 5 MG TAB PO (22:16)
[2022-10-15] MEDS: Diclofenac 1% Gel 100 GM TUBE TP (22:19)
[2022-10-16] VITALS (8 sets, daily range): BP systolic 103–125; BP diastolic 64–78; PULSE 64–96; RESP 12–22; TEMP 35.8–37.2; O2SAT 92–96
[2022-10-16] MEDS: Acetaminophen 500 MG TAB 1000 MG PO ×3 (05:18→21:35)
[2022-10-16 07:00] LABS: Abs Immature Grans 0.15 10^3/uL (0.0-0.06); Absolute Basophil Count 0.07 10^3/uL (0.0-0.2); Absolute Eosinophil Count 0.19 10^3/uL (0.0-0.7); Absolute Lymphocyte Count 2.38 10^3/uL (1.2-3.4); Absolute Neutrophil Count 7.67 10^3/uL (1.2-6.7); Basophils % 0.6; Eosinophils % 1.6; HCT 43.7 % (36.0-46.0); HGB 14.4 g/dL (11.2-15.7); Immature Grans % 1.3; Lymphocytes % 20.2; MCH 30.4 pg (27.0-33.0); MCV 92 fL (80-95); MPV 11.4 fL (8.0-11.0); Monocytes % 11.1; Neutrophils % 65.2; Platelet Count 225 10^3/uL (130-400); RBC 4.73 10^6/uL (3.93-5.22); RDW 14.6 % (11.7-14.6); RDW-SD 49.1 fL; WBC 11.76 10^3/uL (4.4-10.8)
[2022-10-16 07:03] LABS: Absolute Monocyte Count 1.31 10^3/uL (0.1-0.8)
[2022-10-16 07:26] LABS: Anion Gap 9.1 mmol/L (3-11); BUN 69 mg/dL (7-18); CO2 27.9 mmol/L (21.0-32.0); CREATININE 1.8 mg/dL (0.55-1.02); Calcium 9.8 mg/dL (8.5-10.1); Chloride 95 mmol/L (98-107); Estimated GFR 29.94 (mL/min/1.73m2); Glucose 131 mg/dL (74-106); Magnesium 2.5 mg/dL (1.8-2.4); Potassium 4.7 mmol/L (3.5-5.1); Sodium 132 mmol/L (136-145)
[2022-10-16 07:37] LABS: C-Reactive Protein 2.27 mg/dL (0.0-0.3)
[2022-10-16 08:24] LABS: Procalcitonin 0.2 ng/mL
[2022-10-16] MEDS: Budesonide/Formoterol 80/4.5 6.9 GM 60 PUFF INH IH ×2 (08:25→20:41)
[2022-10-16] MEDS: Ipratropium/Albuterol 4 GM 120 PUFF INH IH ×4 (08:26→20:42)
[2022-10-16] MEDS: Tiotropium Bromide-Respimat 10 PUFF INH 2 PUFF IH (08:26)
[2022-10-16] MEDS: Insulin Aspart 300 UNITS/3 ML PEN SC ×6 (08:39→17:41)
[2022-10-16] MEDS: Atorvastatin 40 MG TAB PO (09:45)
[2022-10-16] MEDS: Calcium 600mg/Vit D 200U TAB 1 TAB PO ×2 (09:45→21:37)
[2022-10-16] MEDS: Apixaban 5 MG TAB PO ×2 (09:45→21:37)
[2022-10-16] MEDS: Benzonatate 200 MG CAP PO ×3 (09:45→21:36)
[2022-10-16] MEDS: Fluticasone NASAL SPRAY 16 GM BTL NS ×2 (09:46→21:39)
[2022-10-16] MEDS: FLUoxetine 10 MG TAB PO (09:46)
[2022-10-16] MEDS: Cephalexin 500 MG CAP PO ×2 (09:46→21:36)
[2022-10-16] MEDS: Diclofenac 1% Gel 100 GM TUBE TP ×4 (09:47→21:39)
[2022-10-16] MEDS: Lactobacillus Acidophilus CAP 1 CAP PO (09:48)
[2022-10-16] MEDS: Metoprolol CR 50 MG TABCR PO (09:49)
[2022-10-16] MEDS: Montelukast 10 MG TAB PO (09:49)
[2022-10-16] MEDS: Ondansetron 4 MG/2 ML VIAL IVP (09:50)
[2022-10-16] MEDS: Nystatin POWDER 60 GM JAR TP ×3 (09:50→21:40)
[2022-10-16] MEDS: Omeprazole 20 MG CAPCR PO (09:50)
[2022-10-16] MEDS: Vitamins B Comp w/C TAB 1 TAB PO (09:53)
--- NOTE | 2022-10-16 09:53 | PT.INTREAT ---
Date of service: 10/16/22 Time of Service: 08:40 PT Notes Visit Reasons: Acute On Chronic Diastolic Heart Failure Inpatient Physical Therapy Treatment Note [facility] Date: 10/16/2022 SUBJECTIVE: Madison is pleasant and agreeable to participating in PT. She reports that she has been feeling nauseous today. OBJECTIVE: Pain: No c/o pain BED MOBILITY/TRANSFERS/GAIT: Held due to not feeling well THEREX: Patient was instructed in an UE and LE strengthening program, completed in a long-sitting position, to include: ankle pumps, LAQ, heel slides, hip abduction, quad sets, glute sets, shoulder flexion and bicep curls. ASSESSMENT: Patient tolerated session with complaint of increased fatigue and nausea. Nursing aware. She continues to demonstrate limited activity tolerance and increased fatigue with all activity. PLAN: Continue with global strengthening and general conditioning for improved activity tolerance. TREATMENT CODE/TIME: 15 minutes; [id number] (08:40)
[2022-10-16] MEDS: Insulin Glargine 300 UNITS/3 ML PEN 60 UNITS SC ×2 (10:01→21:42)
[2022-10-16 11:52] LABS: Bilirubin Negative (Negative); Blood Large (Negative); Clarity Clear (Clear); Glucose Negative (Negative); Ketones Negative (Negative); Leukocyte Esterase Trace (Negative); Nitrite Negative (Negative); Urobilinogen 0.2 mg/dL (Up to 0.2); pH 6.5 (5-8)
[2022-10-16 11:57] LABS: Bacteria Few HPF (Negative); C & S Indicated? Yes; Casts 0-2 Coarse Granular LPF (Negative); Crystals Negative HPF (Negative); Epithelial Cells Rare HPF (Negative); Mucus Negative (Negative); RBC >50 HPF (0-2)
--- NOTE | 2022-10-16 17:13 | PGE_ITS ---
Date of Service Date of service: 10/16/22 Time of Service: 17:13 Assessment and Plan Assessment and plan (1) Bilateral lower leg cellulitis: Status: Chronic Assessment and plan: continue keflex. day #6 ; had 4 days of iv antibiotics including cefepime and doxycycline. will continue through the weekend on the keflex but probably can dc at discharge or will only need a couple more days. CRP is still elevated at 2.27 but procalcitonin is normal at 0.2. WBC remains slightly elevated at 11,000. cont. Keflex for a couple more days. I increased the dose and interval i.e. keflex 250 mg tid > 500 mg q12h (2) Acute on chronic heart failure with preserved ejection fraction (HFpEF): Status: Acute Assessment and plan: diuretics on hold d/t azotemia. Azotemia is improving. BUN down to 69 and creatinine down to 1.8. continue to hold diuretics but no more iv fluids (3) Prerenal azotemia: Status: Acute Assessment and plan: as above. monitor urine output (4) Constipation: Status: Acute Assessment and plan: patient now on good bowel regimen. will give Relistor and enema. increase senna and miralax to bid. (5) Interstitial pneumonia with autoimmune features: Status: Ruled-out Assessment and plan: Prednisone d/c'ed. Patient has ILD but per Dr. Jones, she is not suffering from flare up. (6) Pulmonary hypertension: Status: Chronic Assessment and plan: Agree this is related to KELLEY. Patient refuses to use BIPAP/CPAP diuretics for HFPEF on hold d/t azotemia (7) Type 2 diabetes mellitus with diabetic neuropathy: Status: Chronic Assessment and plan: glucose running 128 to 232 today. Qualifiers: Diabetes mellitus custodial insulin use: with terminal operator use Qualified Code(s): E11.40 - Type 2 diabetes mellitus with diabetic neuropathy, unspecified; Z79.4 - marine oil terminal superintendent (current) use of insulin (8) Chronic kidney disease: Status: Chronic Assessment and plan: baseline creatinine is around 1.5 and BUN around 35 to 40. holding diuretics for now. not using JESSIE-I nor ARB nor Entresto until her renal fxn recovers (9) Atrial fibrillation: Status: Chronic Assessment and plan: Rate controlled. She is actually in atrial flutter. telemetry dc'ed Continue apixaban, toprol XL. (10) Essential hypertension: Status: Chronic Assessment and plan: Continue metoprolol. (11) Depressive disorder: Status: Chronic Assessment and plan: Continue home prozac. (12) DVT prophylaxis: Status: Acute Assessment and plan: Continue apixaban (13) Discharge planning issues: Status: Acute Assessment and plan: DNR/DNI code status; Plan to return to [facility] when stable on oral diuretics. probably in the next 24 to 48 hr Subjective Subjective Patient reports: no bowel movement Interval history since last seen: Patient nauseated again. No vomiting but not eating well d/t food does not appeal to her. No BM today, nurse confirmed this. She has had flatus. I told her that we would give her an enema to try to get her bowels to empty out which I think is why she is nauseated. I suspect she has gastroparesis. Exam Narrative Exam Narrative: Pleasant, obese female, alert/oriented, sitting up in the chair picking at her dinner Lungs: clear Heart: irregularly irregular but controlled rate Abdomen: obese, firm but not hard, normal bowel sound; nontender to palpation Legs: erythema is gone, just some residual pinkness to the lower tibia and ankles; skin is not hot Objective Last Vital Signs Temp 35.8 C L 10/16/22 15:25 Pulse 67 10/16/22 15:25 Resp 12 10/16/22 15:25 BP 110/71 10/16/22 15:25 Pulse Ox 93 10/16/22 15:25 Laboratory Results - last 24 hr 10/16/22 10/16/22 10/16/22 06:10 06:10 06:10 WBC 11.76 H RBC 4.73 Hgb 14.4 Hct 43.7 MCV 92 MCH 30.4 MCHC 33.0 RDW 14.6 Plt Count 225 MPV 11.4 H Immature Gran % 1.3 Neutrophils % 65.2 Lymphocytes % 20.2 Monocytes % 11.1 Eosinophils % 1.6 Basophils % 0.6 Nucleated RBC % 0.0 Absolute Neutrophils 7.67 H Absolute Lymphocytes 2.38 Absolute Monocytes 1.31 H Absolute Eosinophils 0.19 Absolute Basophils 0.07 Sodium Potassium Chloride Carbon Dioxide Anion Gap BUN Creatinine Est GFR (CKD-EPI 2020) Glucose Calcium Magnesium C-Reactive Protein 2.27 H Procalcitonin 0.2 Urine Color Urine Clarity Urine pH Ur Specific [place] Urine Protein Urine Ketones Urine Blood Urine Nitrite Urine Bilirubin Urine Urobilinogen Ur Leukocyte Esterase Urine RBC Urine WBC Ur Epithelial Cells Urine Crystals Urine Bacteria Urine Casts Urine Mucus Ur Culture Indicated? Urine Glucose 10/16/22 10/16/22 06:10 11:35 WBC RBC Hgb Hct MCV MCH MCHC RDW Plt Count MPV Immature Gran % Neutrophils % Lymphocytes % Monocytes % Eosinophils % Basophils % Nucleated RBC % Absolute Neutrophils Absolute Lymphocytes Absolute Monocytes Absolute Eosinophils Absolute Basophils Sodium 132 L Potassium 4.7 Chloride 95 L Carbon Dioxide 27.9 Anion Gap 9.1 BUN 69 H Creatinine 1.8 H Est GFR (CKD-EPI 2020) 29.94 Glucose 131 H Calcium 9.8 Magnesium 2.5 H C-Reactive Protein Procalcitonin Urine Color Yellow Urine Clarity Clear Urine pH 6.5 Ur Specific [place] 1.020 Urine Protein 30 H Urine Ketones Negative Urine Blood Large H Urine Nitrite Negative Urine Bilirubin Negative Urine Urobilinogen 0.2 Ur Leukocyte Esterase Trace H Urine RBC >50 H Urine WBC 3-5 Ur Epithelial Cells Rare Urine Crystals Negative Urine Bacteria Few Urine Casts 0-2 Coarse Granular Urine Mucus Negative Ur Culture Indicated? Yes Urine Glucose Negative Time Spent with Patient Time Spent with Patient: 25-34 minutes Time was spent: preparing to see the patient(eg.review tests), ordering medications,tests, procedures, indepentently interpreting results, counseling the patient and care coordination
[2022-10-16] MEDS: Methylnaltrexone 12 MG/0.6 ML VIAL SC (17:41)
[2022-10-16] MEDS: Mineral Oil-Enema 133 ML BTL PR (18:11)
[2022-10-16] MEDS: Polyethylene Glycol 3350 17 GM PACKET PO (21:35)
[2022-10-16] MEDS: Docusate Sodium 100 MG CAP PO (21:36)
[2022-10-16] MEDS: rOPINIRole 1 MG TAB 4 MG PO (21:36)
[2022-10-16] MEDS: Levothyroxine 75 MCG TAB PO (21:37)
[2022-10-16] MEDS: Melatonin 3 MG TAB 6 MG PO (21:37)
[2022-10-16] MEDS: Senna TAB 1 TAB PO (21:39)
[2022-10-17] MEDS: oxyCODONE 5 MG TAB PO ×2 (02:19→16:28)
[2022-10-17] MEDS: Acetaminophen 500 MG TAB 1000 MG PO ×3 (05:59→20:27)
[2022-10-17 06:35] VITALS: BP 122/82; PULSE 70; RESP 16; TEMP 36.8; O2SAT 93
[2022-10-17 07:09] LABS: Anion Gap 6.6 mmol/L (3-11); BUN 64 mg/dL (7-18); CO2 28.4 mmol/L (21.0-32.0); CREATININE 1.6 mg/dL (0.55-1.02); Calcium 9.8 mg/dL (8.5-10.1); Chloride 95 mmol/L (98-107); Estimated GFR 34.48 (mL/min/1.73m2); Glucose 115 mg/dL (74-106); Potassium 4.4 mmol/L (3.5-5.1); Sodium 130 mmol/L (136-145)
[2022-10-17] MEDS: Tiotropium Bromide-Respimat 10 PUFF INH 2 PUFF IH (08:28)
[2022-10-17] MEDS: Ipratropium/Albuterol 4 GM 120 PUFF INH IH ×4 (08:28→20:22)
[2022-10-17] MEDS: Budesonide/Formoterol 80/4.5 6.9 GM 60 PUFF INH IH ×2 (08:28→20:22)
[2022-10-17] MEDS: Lactobacillus Acidophilus CAP 1 CAP PO (08:34)
[2022-10-17] MEDS: Omeprazole 20 MG CAPCR PO (08:34)
[2022-10-17] MEDS: Montelukast 10 MG TAB PO (08:34)
[2022-10-17] MEDS: Atorvastatin 40 MG TAB PO (08:34)
[2022-10-17] MEDS: FLUoxetine 10 MG TAB PO (08:34)
[2022-10-17] MEDS: Metoprolol CR 50 MG TABCR PO (08:35)
[2022-10-17] MEDS: Magnesium Oxide 400 MG TAB PO (08:35)
[2022-10-17] MEDS: Calcium 600mg/Vit D 200U TAB 1 TAB PO ×2 (08:35→20:28)
[2022-10-17] MEDS: Apixaban 5 MG TAB PO ×2 (08:35→20:28)
[2022-10-17] MEDS: Vitamins B Comp w/C TAB 1 TAB PO (08:35)
[2022-10-17] MEDS: Benzonatate 200 MG CAP PO ×3 (08:35→20:28)
[2022-10-17] MEDS: Nystatin POWDER 60 GM JAR TP ×3 (08:36→20:28)
[2022-10-17] MEDS: Fluticasone NASAL SPRAY 16 GM BTL NS (08:36)
[2022-10-17] MEDS: Cephalexin 500 MG CAP PO (08:36)
[2022-10-17] MEDS: Senna TAB 1 TAB PO ×2 (08:36→20:27)
[2022-10-17] MEDS: Polyethylene Glycol 3350 17 GM PACKET PO ×2 (08:38→20:30)
[2022-10-17] MEDS: Insulin Glargine 300 UNITS/3 ML PEN 60 UNITS SC (08:40)
[2022-10-17] MEDS: Insulin Aspart 300 UNITS/3 ML PEN SC ×3 (08:46→16:55)
[2022-10-17] MEDS: Diclofenac 1% Gel 100 GM TUBE TP ×3 (12:45→20:30)
[2022-10-17 14:16] LABS: Source Nasal/Nares
--- NOTE | 2022-10-17 14:47 | W.PM.PROGNOT ---
Date of Service Date of service: 10/17/22 Time of Service: 14:48 Assessment and Plan Assessment and plan (1) Bilateral lower leg cellulitis: Status: Chronic Assessment and plan: continue keflex. day #7 ; had 4 days of iv antibiotics including cefepime and doxycycline. She has now completed adequate coverage for her cellulitis and her legs look much better. I am stopping her keflex Professional time spent interviewing and examining patient, discussion of goals of care with hospital team (care management, nursing and consulting professionals) was 30 minutes. (2) Acute on chronic heart failure with preserved ejection fraction (HFpEF): Status: Acute Assessment and plan: diuretics are still on hold d/t her azotemia and she seems to be euvolemic. When I restart her diuretics for at the care home I will reduce the frequency and the strength. She may only need diuretics couple times per week. (3) Prerenal azotemia: Status: Acute Assessment and plan: bun 64 and creatinine 1.6. continue to hold any JESSIE-I or ARB and any diuretics. she should be on Jardiance for her heart failure as well as to slow progressin of her renal disease (4) Constipation: Status: Acute Assessment and plan: patient now on good bowel regimen. will give Relistor and enema. increase senna and miralax to bid. (5) Interstitial pneumonia with autoimmune features: Status: Ruled-out Assessment and plan: Prednisone d/c'ed. Patient has ILD but per Dr. Jones, she is not suffering from flare up. (6) Pulmonary hypertension: Status: Chronic Assessment and plan: Agree this is related to KELLEY. Patient refuses to use BIPAP/CPAP diuretics for HFPEF on hold d/t azotemia (7) Type 2 diabetes mellitus with diabetic neuropathy: Status: Chronic Assessment and plan: glucose running 119 to 156 today. I will reduce her dose of her lantus. add Jardiance for her CKD and CHF Qualifiers: Diabetes mellitus [facility] insulin use: with [facility] use Qualified Code(s): E11.40 - Type 2 diabetes mellitus with diabetic neuropathy, unspecified; Z79.4 - buttermaker helper (current) use of insulin (8) Chronic kidney disease: Status: Chronic Assessment and plan: baseline creatinine is around 1.5 and BUN around 35 to 40. holding diuretics for now. not using JESSIE-I nor ARB nor Entresto until her renal fxn recovers (9) Atrial fibrillation: Status: Chronic Assessment and plan: Rate controlled. She is actually in atrial flutter. telemetry dc'ed Continue apixaban, toprol XL. (10) Essential hypertension: Status: Chronic Assessment and plan: Continue metoprolol. (11) Depressive disorder: Status: Chronic Assessment and plan: Continue home prozac. (12) DVT prophylaxis: Status: Acute Assessment and plan: Continue apixaban (13) Discharge planning issues: Status: Acute Assessment and plan: DNR/DNI code status; dc to [facility] tomorrow Subjective Subjective Interval history since last seen: Patient states she still has not had a bowel movement despite the fact she had an enema and Relistor yesterday. We are going to give her magnesium citrate and another enema or soapsuds. She is now completed on her antibiotics for her cellulitis. Exam Narrative Exam Narrative: Madison is lying in bed no acute distress she is alert and oriented person place time circumstance. Lungs are clear to auscultation Heart is irregularly irregular controlled rate Abdomen is obese soft nondistended normal bowel sounds nontender to palpation. Lower extremities without peripheral cyanosis or edema she has chronic venous stasis skin changes with a faint salmon discoloration to the pretibial surfaces but no increased warmth and no redness. Objective Last Vital Signs Temp 36.8 C 10/17/22 06:35 Pulse 70 10/17/22 06:35 Resp 16 10/17/22 06:35 BP 122/82 10/17/22 06:35 Pulse Ox 93 10/17/22 06:35 Laboratory Results - last 24 hr 10/17/22 10/17/22 06:00 14:00 Sodium 130 L Potassium 4.4 Chloride 95 L Carbon Dioxide 28.4 Anion Gap 6.6 BUN 64 H Creatinine 1.6 H Est GFR (CKD-EPI 2020) 34.48 Glucose 115 H Calcium 9.8 COVID-19 Source Nasal/Nares Time Spent with Patient Time Spent with Patient: 25-34 minutes Time was spent: preparing to see the patient(eg.review tests), ordering medications,tests, procedures, indepentently interpreting results, counseling the patient and care coordination
[2022-10-17 15:05] LABS: COVID-19 PCR Negative (Negative)
[2022-10-17] MEDS: Methylnaltrexone 12 MG/0.6 ML VIAL SC (15:18)
[2022-10-17 15:20] VITALS: BP 109/73; PULSE 73; RESP 18; TEMP 36; O2SAT 95
[2022-10-17] MEDS: Bisacodyl 10 MG SUPP PR (15:35)
[2022-10-17] MEDS: Magnesium Citrate 300 ML BTL PO (15:35)
[2022-10-17] MEDS: Docusate Sodium 100 MG CAP PO (20:27)
[2022-10-17] MEDS: Levothyroxine 75 MCG TAB PO (20:27)
[2022-10-17] MEDS: rOPINIRole 1 MG TAB 4 MG PO (20:27)
[2022-10-17] MEDS: Melatonin 3 MG TAB 6 MG PO (20:28)
[2022-10-17] MEDS: Insulin Glargine 300 UNITS/3 ML PEN 55 UNITS SC (20:32)
[2022-10-18 00:23] VITALS: BP 110/74; PULSE 65; RESP 18; TEMP 36.2; O2SAT 95
[2022-10-18 04:26] VITALS: BP 122/73; PULSE 71; RESP 20; TEMP 36.5; O2SAT 95
[2022-10-18] MEDS: Acetaminophen 500 MG TAB 1000 MG PO (05:06)
[2022-10-18 06:32] VITALS: BP 114/76; PULSE 75; RESP 18; TEMP 36.2; O2SAT 96
[2022-10-18 06:46] LABS: Anion Gap 7.2 mmol/L (3-11); BUN 57 mg/dL (7-18); CO2 28.8 mmol/L (21.0-32.0); CREATININE 1.4 mg/dL (0.55-1.02); Calcium 10.1 mg/dL (8.5-10.1); Chloride 96 mmol/L (98-107); Estimated GFR 40.47 (mL/min/1.73m2); Glucose 109 mg/dL (74-106); Potassium 4.1 mmol/L (3.5-5.1); Sodium 132 mmol/L (136-145)
[2022-10-18 06:49] LABS: Magnesium 2.9 mg/dL (1.8-2.4)
[2022-10-18 07:30] VITALS: BP 118/74; PULSE 71; RESP 16; TEMP 36.2; O2SAT 98
[2022-10-18] MEDS: Magnesium Oxide 400 MG TAB PO (08:00)
[2022-10-18] MEDS: Apixaban 5 MG TAB PO (08:02)
[2022-10-18] MEDS: FLUoxetine 10 MG TAB PO (08:02)
[2022-10-18] MEDS: Lactobacillus Acidophilus CAP 1 CAP PO (08:02)
[2022-10-18] MEDS: Empaglifozin 10 MG TAB PO (08:03)
[2022-10-18] MEDS: Metoprolol CR 50 MG TABCR PO (08:03)
[2022-10-18] MEDS: Montelukast 10 MG TAB PO (08:03)
[2022-10-18] MEDS: Vitamins B Comp w/C TAB 1 TAB PO (08:03)
[2022-10-18] MEDS: Benzonatate 200 MG CAP PO (08:03)
[2022-10-18] MEDS: Atorvastatin 40 MG TAB PO (08:04)
[2022-10-18] MEDS: Omeprazole 20 MG CAPCR PO (08:04)
[2022-10-18] MEDS: Diclofenac 1% Gel 100 GM TUBE TP ×2 (08:05→11:05)
[2022-10-18] MEDS: Nystatin POWDER 60 GM JAR TP (08:05)
[2022-10-18] MEDS: Insulin Aspart 300 UNITS/3 ML PEN SC ×2 (08:08→12:08)
[2022-10-18] MEDS: Insulin Glargine 300 UNITS/3 ML PEN 55 UNITS SC (08:09)
[2022-10-18] MEDS: Tiotropium Bromide-Respimat 10 PUFF INH 2 PUFF IH (08:38)
[2022-10-18] MEDS: Budesonide/Formoterol 80/4.5 6.9 GM 60 PUFF INH IH (08:38)
[2022-10-18] MEDS: Ipratropium/Albuterol 4 GM 120 PUFF INH IH ×2 (08:39→12:17)
[2022-10-18] MEDS: Calcium 600mg/Vit D 200U TAB 1 TAB PO (09:15)
--- NOTE | 2022-10-18 12:13 | DSE_ITS ---
Date of service: 10/18/22 Time of Service: 12:14 DS: Diagnosis Discharge Diagnosis (1) Bilateral lower leg cellulitis: Status: Chronic Asessment and Plan: patient presented w/ fever, leg edema and leg erythema. Blood cultures showed no growth. patient was treated w/ doxycycline and cefepime x 4 days then another 7 days of Kefelex. Cellulitis has resolved. leg edema improved w/ iv lasix for her HFPEF. No further antibiotics needed at this time (2) Acute on chronic heart failure with preserved ejection fraction (HFpEF): Status: Acute Asessment and Plan: On admission she was in acute exacerbation of her chronic HFPEF. She was treated w/ iv lasix drip for a few days then put on oral diuretics which had to be held d/t worsening azotemia. She is now back to her baseline dry weight of 111.5 kg and her baseline creatinine of 1.4. Her BUN remains above her baseline at 57 (baseline is 35 to 40), however she will need resumption of diuretics to remain out of acute CHF. However, close/daily monitor of her weight and weekly monitoring of her BMP should help w/ prevention of over correction. (3) Prerenal azotemia: Status: Resolved Asessment and Plan: patient presented w/ BUN of 36 and creatinine of 1.4 and daily BMP was monitored while she was on lasix drip and creatinine remained stable at 1.5 to 1.6 until 10/14/22 when her BUN shirley to 76 and creatinine shirley to 2.1. Diuretics were witheld, she was given couple of boluses of 500 mL of LR and her BUN and creatinine declined to 57 and 1.4. (4) Constipation: Status: Acute Asessment and Plan: patient developed constipation associated w/ sx of nausea/vomiting, this resolved w/ treatment of her constipation. KUB was checked and no bowel obstruction was seen (5) Interstitial pneumonia with autoimmune features: Status: Ruled-out Asessment and Plan: deon initially was put on high dose prednisone which was weaned off. Dr. Jones feels that she does not need further steroids at this point. Deon to follow up w/ Dr. Jones in the next 4 weeks. (6) Pulmonary hypertension: Status: Chronic Asessment and Plan: echocardiogram was not done this admission but prior one from 07/14/22 was reviewed. She echevarria normal LV size and function w/ LVEF 55% and no RWMA. RV size and function is normal but she has elevated RVSP of 45 mm. (7) Type 2 diabetes mellitus with diabetic neuropathy: Status: Chronic Asessment and Plan: patients DM was treated w/ basal/bolus insulin includiing Lantus and novolog including meal coverage and she was started on Jardiance for her CHF (8) Chronic kidney disease: Status: Chronic Asessment and Plan: patient is back to her baseline creatinine of 1.4. Please monitor BMP weekly while on diuretics, until certain of stability, then periodic monitoring at frequency at PCP discretion (9) Atrial fibrillation: Status: Chronic Asessment and Plan: stable chronic afib. she remains on her home dose of Toprol XL and anticoagulated w/ Eliquis (10) Essential hypertension: Status: Chronic Asessment and Plan: BP well controlled on her current regimen (11) Depressive disorder: Status: Chronic Asessment and Plan: no clinical change. depression controlled on her current regimen (12) Discharge planning issues: Status: Resolved Asessment and Plan: patient returned to the [facility] in improved condition Discharge Plan Disposition Patient Disposition: [facility](SNF) Condition: Good Discharge Details Reason For Visit: Acute On Chronic Diastolic Heart Failure Admit Date/Time: 10/09/22 11:10 Admit Provider: Willem Stone Attending Provider: Willem Stone Primary Care Provider: Tamika Frias [facility] Hospital Course Hospital Course: Patient is a 72-year-old female with a past medical history of type 2 diabetes mellitus complicated by PAD, CKD, diabetic peripheral neuropathy, Charcot arthropathy, chronic atrial fibrillation (on Eliquis), HFpEF, hypertension, KELLEY (on CPAP) and ILD. Patient had been coming off a slow taper of prednisone prescribed by her ip litigation associate for her ILD when she developed progressive dyspnea and weakness over the last few weeks that became severe last few days prior to admission associated with nonproductive cough but no fever or rigors. She has chronic bilateral leg edema. Evaluation in the emergency department demonstrated elevated proBNP of 1515 EKG showed a stable chronic atrial fibrillation at 78 bpm. EKG showed LVH. CBC was normal CMP showed elevated BUN and creatinine of 36 and 1.4 which are pretty much her baseline. Chest x-ray demonstrated mild cardiomegaly along with chronic interstitial lung changes. Legs show erythematous legs suggestive of a acute cellulitis. She was afebrile in the emergency department but spiked a temperature 38.6 on admission. CRP came back elevated 3.35 procalcitonin was elevated 0.2. Blood cultures sputum cultures urine Legionella and urine strep antigen were all ordered. She was started on cefepime and doxycycline for possible pneumonia as well as treatment of her cellulitis. Patient was treated for 4 days of IV antibiotics and then changed to Keflex which she receive for 7 days. Her cellulitis improved markedly and her inflammatory markers improved. Keflex was discontinued the day prior to discharge. Her acute on chronic heart failure with preserved ejection fraction was treated with Lasix drip from 10/08/2022 through 10/13/2022 at which point her Lasix drip was stopped and she was put back on torsemide 100 mg once a day. However the patient developed worsening azotemia. Her BUN climbed to as high as 76 and her creatinine shirley to as high as 2.1 as of 10/15/2022 at which point diuretics were withheld. Patient did require couple of boluses of fluid to correct her azotemia. Over the next couple days BUN and creatinine decline to a level of 57 and 1.4 respectively on the day of discharge. Patient had transient hypokalemia during her hospitalization which was corrected with supplementation. Potassium level was 4.1 on discharge. Magnesium level was 2.9 on discharge. Acute coronary syndrome was ruled out on admission with negative troponin levels. And a proBNP which was elevated On admission at 1515 decline to a level of 973 as of 10/15/2022. Patient will be discharged back to the [facility] with the resumption of her d iuretics on a reduced dose with close monitoring with repeat BMP in 3 days. [facility] be [facility] on spironolactone 12.5 mg daily along with torsemide 60 mg daily. Patient was also started on Jardiance 10 mg daily. For atrial fibrillation she was kept on her apixaban 5 mg twice a day and Toprol-XL 50 mg daily. For her ILD her steroids were discontinued per the advice of Dr. Capps. Patient will be maintained on her Trelegy with as needed albuterol. Patient should follow-up in the pulmonary clinic with Dr. Jones. Home Meds and New Rx's Prescriptions: New Jardiance 10 mg Tablet 10 mg PO QAM Qty: 0 0RF spironolactone 25 mg Tablet 12.5 mg PO DAILY Qty: 0 0RF torsemide 20 mg tablet 60 mg PO DAILY Qty: 1 0RF Continued (DME) blood-glucose meter misc See Dose Instructions .ROUTE .MEDSUPPLY Qty: 1 0RF Dose Instruction: As directed Rx Instructions: As directed. AC and HS E11.9 Accucheck isi (DME) lancets 28 gauge misc 1 ea Miscellaneous TID & PRN Qty: 400 12RF Rx Instructions: FOR accucheck Isi METER. PT USES INSULIN. Ac andhs E11.65/Z79.4 (DME) Blood Glucose Test strip See Dose Instructions .ROUTE .MEDSUPPLY Qty: 400 5RF Dose Instruction: AC and HS Rx Instructions: AC and HS E11.21 Dermagran (aluminum hydroxide) 0.275 % ointment 1 applic topical BID hydrocortisone 2.5 % cream 1 applic topical DAILY PRN diclofenac sodium 1 % gel 2 g topical BID PRN vitamin B complex [Vitamins B Complex] Tablet 1 tab PO DAILY nitroglycerin 0.4 mg tablet, sublingual 0.4 mg sublingual Q5M PRN Rx Instructions: do not exceed 3 doses per episode montelukast 10 mg tablet 10 mg PO DAILY polyethylene glycol 3350 [Miralax] 17 gram/dose powder 17 g PO .every other day PRN (DME) insulin syringe needleless [BD Insulin Syringe Slip Tip] 1 mL syringe 1 ea Miscellaneous BID Qty: 120 12RF Rx Instructions: E11.65 (DME) pen needle, diabetic [Pen Needle] 30 gauge x 5/16 needle 1 ea Miscellaneous QID Qty: 300 6RF Rx Instructions: ultra fine [id number]; E11.65 AC and HS ipratropium-albuterol 0.5 mg-3 mg(2.5 mg base)/3 mL solution for nebulization 3 ml inhalation BID PRN docusate sodium 100 mg capsule 100 mg PO QHS levothyroxine 75 mcg capsule 75 mcg PO HS ropinirole 3 mg tablet 3 mg PO QHS Patient Comments: No taking 4 mg Rx Instructions: administer 1-3 hours before bedtime dextromethorphan-guaifenesin [Diabetic Tussin DM] 10-100 mg/5 mL liquid 10 ml PO .4xday PRN [place] Cough Drops 7.6 mg lozenge 7.6 mg mucous membrane Q2H PRN loperamide 2 mg Capsule See Rx Instructions .ROUTE .COMPLEX Rx Instructions: 4mg PO after first loose stool, then 2mg PO after each loose stool metoprolol succinate 50 mg Tablet Extended Release 24 Hr 50 mg PO DAILY bisacodyl [Dulcolax (bisacodyl)] 10 mg Suppository 10 mg [place] PRN PRN fluticasone propionate [Flonase Allergy Relief] 50 mcg/actuation [place],Suspension 2 spray INTRANASAL BID insulin lispro [Humalog U-100 Insulin] 100 unit/mL solution 23 unit subcut AC Patient Comments: hold if BS < 100 acetaminophen-codeine 300-30 mg Tablet 1 tab PO Q8H PRN Trelegy Ellipta 100-62.5-25 mcg Blister With Device 1 inh INHALATION DAILY magnesium oxide 400 mg magnesium Tablet 400 mg PO DAILY ropinirole 2 mg Tablet 4 mg PO HS calcium carbonate-vitamin D3 [Calcium 600 + D(3)] 600 mg(1,500mg) -400 unit Tablet 1 tab PO BID acetaminophen [Tylenol] 325 MG tablet 650 mg PO BID PRN Eliquis 5 mg tablet 5 mg PO BID benzonatate 100 mg Capsule 100 mg PO BID omeprazole 20 mg Capsule,Delayed Release(Dr/Ec) 20 mg PO DAILY atorvastatin 40 mg Tablet 40 mg PO DAILY Lactobacillus acidophilus Tablet 1 tab PO DAILY fluoxetine 10 mg Capsule 10 mg PO DAILY Changed albuterol sulfate 90 mcg/actuation Hfa Aerosol Inhaler 2 puff INHALATION QID PRN PRNQty: 0 0RF insulin glargine [Lantus Solostar U-100 Insulin] 100 unit/mL (3 mL) insulin pen 55 unit SUBCUT BID Qty: 0 0RF Discontinued torsemide 100 mg tablet 100 mg PO BID prednisone 10 mg tablet 10 mg PO DIRECTED Qty: 64 0RF Rx Instructions: Take 4 tabs daily for 5 days, 3 tabs for 5 days, 2 tabs for 5 days, 1.5 tabs for 7 days, 1 tab for 7 days, 0.5 tabs for 7 days prednisone 10 mg tablet 10 mg PO DIRECTED Qty: 39 0RF Patient Comments: no longer taking Rx Instructions: Take 2 tabs daily for 14 days, then 1 tab daily for 7 days, then 0.5 tabs for 7 days Discharge Instructions Instructions: Heart Failure (DC) Additional Instructions: Get repeat BMP in 3 to 5 days to follow up on her CKD, electrolytes. Weigh patient daily. Report wt gain of more than 2 lbs Referrals: Mariluz Jones MD [ [facility] STAFF PHYSICIAN] - (call the office for follow up in the next 2 to 4 weeks) Activity:: Activity as Tolerated Equipment/Supplies:: No Equipment Needed Diet:: Carb Counting Discharge Orders Discharge Orders: Discharge Order (Routine); Ordered 10/18/22 Ordered By: Willem Stone DS: Summary Time Spent with Patient providing and/or coordinating discharge services: Greater than 30 minutes Status at Discharge Functional status at discharge: wheelchair bound Overall status at discharge: patient is back to baseline Mental Status: mental status grossly normal Speech and Movement: speech and movement normal Mood: congruent mood Affect: normal affect Exam Psych Mental Status: mental status grossly normal Speech and Movement: speech and movement normal Mood: congruent mood Affect: normal affect DS: Data Vitals/I&O Vitals and I&O: Vital Signs Temperature 36.2 C L 10/18/22 06:32 Temperature Source Tympanic 10/18/22 06:32 Pulse 75 10/18/22 06:32 Pulse Rhythm Regular 10/18/22 07:30 Pulse 83 10/08/22 16:01 Respiratory Rate 18 10/18/22 06:32 Respiratory Effort Normal 10/18/22 07:30 Respiratory Depth Normal 10/18/22 07:30 Respiratory Pattern Normal 10/18/22 07:30 Blood Pressure 114/76 10/18/22 06:32 Blood Pressure Mean 73 10/08/22 16:01 Blood Pressure Position Sitting 10/08/22 09:32 Pulse Oximetry 96 10/18/22 06:32 Oxygen Delivery Method Room Air 10/18/22 06:32 Oxygen Flow Rate 0 10/18/22 06:32 Fraction of Inspired Oxygen (FIO2) 30 10/14/22 08:44 Pain Level 7 10/18/22 05:06 Comment RN informed of temp 10/09/22 15:12 Intake & Output 10/17/22 10/18/22 10/18/22 23:59 11:59 23:59 Intake Total 870 / 880 250 / 250 Balance 870 / 880 250 / 250 Weight 111.5 kg Intake: Oral 870 / 870 250 / 250 Other: Urine Color Yellow Yellow Urine Appearance Clear Stool Size Moderate Moderate Stool Characteristics Formed Soft Hard Brown Liquid Brown Voiding Methods Bedside Commode Diaper Incontinent Data Completed and Pending Labs on day of discharge: Labs from last 24 hours 10/18/22 10/18/22 10/17/22 05:38 05:35 14:00 Sodium 132 L Potassium 4.1 Chloride 96 L Carbon Dioxide 28.8 Anion Gap 7.2 BUN 57 H Creatinine 1.4 H Est GFR (CKD-EPI 2020) 40.47 Glucose 109 H Calcium 10.1 Magnesium 2.9 H COVID-19 Source Nasal/Nares SARS-CoV-2 (PCR) Negative PFSH All Active Problems (Updated 10/18/22 @ 13:11 by Willem Stone MD) Constipation (Acute) Advanced care planning/counseling discussion (Acute) Respiratory failure (Acute) Acute on chronic heart failure with preserved ejection fraction (HFpEF) (Acute) Acute febrile illness (Acute) Chronic kidney disease (Chronic) CHF (congestive heart failure) (Chronic) Total avulsion of nail plate (Acute) Onycholysis (Acute) Fall (Acute) Contusion of left hip (Acute) Abrasion of right knee (Acute) 2+ pitting edema (Acute) Fluid overload, unspecified (Acute) Mixed conductive and sensorineural hearing loss, unspecified (Acute) Otosclerosis of both ears (Acute) Diaphoresis (Acute) Pneumonia (Acute) CAP (community acquired pneumonia) (Acute) Encounter for competency evaluation (Acute) Periprosthetic hip fracture (Acute) Left hip Acute pain of left hip (Acute) Hypokalemia (Acute) Atherosclerotic peripheral vascular disease of extremity (Acute) UTI (urinary tract infection) (Acute) Charcot's joint, left ankle and foot (Acute ~04/2019) Hypomagnesemia (Acute) DVT prophylaxis (Acute) Uncontrolled diabetes mellitus (Acute) Fungal dermatitis (Acute) Cellulitis of breast (Acute) Cataract (Acute) Cellulitis of lower extremity (Acute 10/31/14) Closed fracture of ankle (Acute) History of Achilles tendon repair (Acute) History of surgical procedure (Acute) Hypothyroidism (Chronic 01/09/13) Perforation of intestine (Acute) Vitamin D deficiency (Chronic 05/07/15) Type 2 diabetes mellitus with diabetic neuropathy (Chronic 05/13/15) SEEN ENDOCRINE AT [facility] [place] Transient ischemic attack (Chronic) Sensorineural hearing loss, bilateral (Chronic 05/24/17) Sciatica (Chronic) right; xray from 02/10 showed scattered spondylosis ant L4-5 on the left and mid lumbar scoliosis convex to the right Pulmonary hypertension (Chronic 04/13/17) Polycythemia (Chronic 03/08/17) Otosclerosis (Chronic 10/14/14) Osteoarthritis (Chronic) right shoulder AC-DJD, Glenohumoral jt. 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 right worse than left Morbid obesity (Chronic) Hyperlipidemia (Chronic) Hypertension (Chronic) Depression (Chronic) Hypothyroidism (Chronic) Restless legs syndrome (Chronic) Sleep apnea with use of continuous positive airway pressure (CPAP) (Chronic) Venous stasis (Chronic) History of tobacco use (Chronic) a. quit in 1995 after approximately 30 pack years H/O fracture of ankle (Chronic) s. Left ankle 2011 Insomnia (Chronic) Hearing loss (Chronic) Left knee DJD (Chronic) DJD of shoulder (Chronic) a. on right Arthritis (Chronic) Toe gangrene (Chronic) Atrial fibrillation (Chronic) Pulmonary hypertension due to sleep-disordered breathing (Chronic) Amputated toe of right foot (Chronic) Medical History Palliative care encounter Pulmonary fibrosis Surgical History Amputation RIGHT SECOND AND THIRD TOES DUE TO DIABETIC ULCERS WITH CELLULITIS;11/14/17 DR. MAI Colonoscopy - MAC (~2003) Extraction of cataract 04/15/17 DR. ARRIETA; LEFT EYE 04/29/17 DR. ARRIETA; RIGHT EYE PROCEDURES REPAIR OF INTESTINE NEC puncture during colonoscopy ACHILLOTENOTOMY L Achilles tendon repair Family History Mother Neoplasm LUNG Father Heart disease Brother Heart disease Sister No problems noted. Grandfather Heart disease Grandfather Heart disease Grandmother Diabetes Grandmother Diabetes Sister No problems noted. Sister No problems noted. Sister Diabetes Sister No problems noted. Brother No problems noted. Brother No problems noted. Social History Smoking/Tobacco Use Status: Former Tobacco Use Smoking risk assessment performed?: Yes Alcohol Intake: never Drug use: Never Substance use type: does not use current occupation: L[employer] @ [employer] Current gender identity: female Do you feel safe at home: Yes Do you feel safe in your relationship?: Yes Time Spent with Patient Time Spent with Patient: 45-69 minutes Time was spent: preparing to see the patient(eg.review tests), ordering medications,tests, procedures, referring, communicating with other health care coordinator (preparing discharge instructions, discharge summary), indepentently interpreting results, counseling the patient and care coordination
--- NOTE | 2022-10-18 16:30 | CMDISCH_ITS ---
- If Service Date Differs Date of service: 10/18/22 Time of Service: 16:30 LACE Index Scoring Tool - Questions: Length of Stay (in days): 7 - 13 Acuity (Admit via E.D.?): Yes Comorbidities: Diabetes w/o Complication E.D. Visits: 3 - Answers: Total Score: 12 Risk of Readmission: High Risk Care Management Discharge Reason for Hospitalization: Acute on Chronic Diastolic Heart Failure. Discharge Plan: Madison will return to [facility] when ready per MD. She will transport via [facility] W/C van coordinated by this editorial writer. Patient/Family Education Needs: Review discharge instructions, discuss Ask Me Three. Services Needed at Discharge: Transportation (W/C Van )
--- NOTE | 2022-10-20 17:27 | PT.INDS ---
Date of service: 10/18/22 PT Notes Visit Reasons: Acute On Chronic Diastolic Heart Failure Physical Therapy Inpatient Discharge Summary Date: 10/18/2022 Date of service: 10/12/2022 through 10/16/2022 This is a clinical summary of care provided for the duration of dates listed above. No charge was made in the completion of this documentation. Referring Doctor: Juliann Mack MD PT Orders: PT CONSULT: Limited ability Precautions: Fall. Standard. Activity as tolerated. ? Orthopedic shoes on when OOB. Patient Profile/Admitting Diagnosis:? Madison is a 72-year-old female with multiple comorbid conditions listed below admitted to the ED on 10/08/2022 due to worsening shortness of breath and was moved to the MedSurg unit for management of HFrEF, interstitial pneumonia with autoimmune features, pulmonary hypertension, BP lower leg cellulitis, type II DM, CKD, AF, essential hypertension, and depression. PMHX: All Active Problems?(Updated 10/08/22 @ 19:44 by Willem Stone MD) Acute on chronic heart failure with preserved ejection fraction (HFpEF) (Acute) Acute febrile illness (Acute) Chronic kidney disease (Chronic) CHF (congestive heart failure) (Chronic) Interstitial pneumonia with autoimmune features (Acute) Total avulsion of nail plate (Acute) Onycholysis (Acute) Fall (Acute) Contusion of left hip (Acute) Abrasion of right knee (Acute) 2+ pitting edema (Acute) Fluid overload, unspecified (Acute) Mixed conductive and sensorineural hearing loss, unspecified (Acute) Otosclerosis of both ears (Acute) Diaphoresis (Acute) Pneumonia (Acute) CAP (community acquired pneumonia) (Acute) Encounter for competency evaluation (Acute) Periprosthetic hip fracture (Acute) Left hip Acute pain of left hip (Acute) Hypokalemia (Acute) Atherosclerotic peripheral vascular disease of extremity (Acute) UTI (urinary tract infection) (Acute) Charcot's joint, left ankle and foot (Acute ~04/2019) Hypomagnesemia (Acute) DVT prophylaxis (Acute) Discharge planning issues (Acute) Uncontrolled diabetes mellitus (Acute) Fungal dermatitis (Acute) Cellulitis of breast (Acute) Cataract (Acute) Cellulitis of lower extremity (Acute 10/31/14) Closed fracture of ankle (Acute) History of Achilles tendon repair (Acute) History of surgical procedure (Acute) Hypothyroidism (Chronic 01/09/13) Perforation of intestine (Acute) Vitamin D deficiency (Chronic 05/07/15) Type 2 diabetes mellitus with diabetic neuropathy (Chronic 05/13/15) [place] [facility] [place] [place]ient ischemic attack (Chronic) Sensorineural hearing loss, bilateral (Chronic 05/24/17) Sciatica (Chronic) right; xray from 02/10 showed scattered spondylosis ant L4-5 on the left and mid lumbar scoliosis convex to the right Pulmonary hypertension (Chronic 04/13/17) Polycythemia (Chronic 03/08/17) Otosclerosis (Chronic 10/14/14) Osteoarthritis (Chronic) right shoulder AC-DJD, Glenohumoral jt. 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 right worse than left Morbid obesity (Chronic) Hyperlipidemia (Chronic) Hypertension (Chronic) Depression (Chronic) Hypothyroidism (Chronic) Restless legs syndrome (Chronic) Sleep apnea with use of continuous positive airway pressure (CPAP) (Chronic) Venous stasis (Chronic) History of tobacco use (Chronic) a.? quit in 1995 after approximately 30 pack years H/O fracture of ankle (Chronic) s.? Left ankle 2012Insomnia (Chronic) Hearing loss (Chronic) Left knee DJD (Chronic) DJD of shoulder (Chronic) a.? on rightArthritis (Chronic) Toe gangrene (Chronic) Atrial fibrillation (Chronic) Pulmonary hypertension due to sleep-disordered breathing (Chronic) Amputated toe of right foot (Chronic) Medical History? Palliative care encounter Pulmonary fibrosis Surgical History? Amputation RIGHT SECOND AND THIRD TOES DUE TO DIABETIC ULCERS WITH CELLULITIS;11/14/17 DR. MAI Colonoscopy - MAC (~2003) Extraction of cataract 04/15/17 DR. ARRIETA; LEFT EYE 04/29/17 DR. ARRIETA; RIGHT EYEPROCEDURES REPAIR OF INTESTINE NEC puncture during colonoscopy ACHILLOTENOTOMY L Achilles tendon repair Social History/Home Situation: Resident of the [facility] for over 3 years now.? Wheelchair is her main mode of mobility in the following.? Independent with all transfers using stand-pivot technique but does not use FWW -- places wheelchair directly in front of her so she can hold onto both armrests as she turns 180 degrees slowly from bedside chair. Equipment Owned/DME: Wheelchair, FWW at the SNF Subjective: NT. See most recent [employer] notes. Objective: General Observation: NT. See most recent [employer] notes. Mental Status: NT. See most recent [employer] notes. Pain: NT. See most recent [employer] notes. Vital Signs: NT. See most recent [employer] notes. ROM: Right Upper Extremity: ? Shoulder Flexion WFL. Shoulder abduction WFL. Elbow flexion WFL. Wrist flexion WFL. Functional opening and closing of hand WFL. Left Upper Extremity:? Shoulder Flexion WFL. Shoulder abduction WFL. Elbow flexion WFL. Wrist flexion WFL. Functional opening and closing of hand WFL. Right Lower Extremity: Hip flexion lacks the last 50% of available range due to body habitus. Hip abduction WFL. Knee flexion WFL. Ankle dorsiflexion to neutral only. Ankle plantarflexion WFL. Left Lower Extremity: Hip flexion lacks the last 50% of available range due to body habitus. Hip abduction WFL. Knee flexion WFL. Ankle dorsiflexion to neutral only. Ankle plantarflexion WFL. Strength: Right Upper Extremity: Shoulder flexors 4-/5. Shoulder abductors 4-/5. Elbow flexors 4-/5. Elbow extensors 4-/5. Front Loader Residential Driver strong. Left Upper Extremity: Shoulder flexors 4-/5. Shoulder abductors 4-/5. Elbow flexors 4-/5. Elbow extensors 4-/5. Front Loader Residential Driver strong. Right Lower Extremity: Hip flexors 3-/5. Hip abductors 4-/5. Knee flexors 4-/5. Knee extensors 4-/5. Ankle dorsiflexors 3-/5. Ankle plantarflexors 4-/5. Left Lower Extremity: Hip flexors 3-/5. Hip abductors 4-/5. Knee flexors 4-/5. Knee extensors 4-/5. Ankle dorsiflexors 3-/5. Ankle plantarflexors 4-/5. BED MOBILITY/TRANSFERS? Sit-stand: Min A - Mod A ? Stand-sit: CGA with cueing for safety Chair-bed: CGA ? GAIT: Assistive Device: FWW Weight bearing: Full Assist: CGA Distance: 5 steps x2 Deviation: Slow pacing, increased fatigue ? Balance: Static Sitting: Normal Dynamic Sitting: Normal Static Standing: Fair Dynamic Standing: Fair Special Tests: Mobility Limitations Standardized Measure [facility] 6 clicks Basic Mobility Inpatient Short Form: Raw Score: 18? CMS Score: 47% deficit? ? ? Assessment: Needs to wear orthopedic shoes when OOB due to previous toe amputation.? Moderately short of breath with in-room ambulation but no desaturation to below 90% on room air.? Able to do more than what she had been relegated to doing at the SNF.? Prognosis for in-room ambulation progression? in terms of distance is good using the front-wheeled walker.? Will need education and training on safe transfer technique using FWW to reduce fall risk at SNF. Patient presents with clinical signs and symptoms consistent with current/admitting diagnoses that have resulted to mobility limitations, gait instability, generalized weakness, and overall ADL decline as demonstrated by the following impairment level findings: 1.? Decreased strength to B UE/LE major muscle groups 2.? Impaired sitting/standing balance 3.? Impaired activity tolerance 4.? Shortness of breath Impairments are contributing to the following functional limitations: 1.? Difficulty with ambulation without assistive device and physical assistance 2.? Increased completion time for mobility ADL performance 3.? Increased risk for falls Goals: Goals X1 week 1. Supine-Sit independent NOT MET 2. Sit-Supine independent NOT MET 3. Sit-Stand independent NOT MET 4. Stand-Sit independent with FWW NOT MET 5. Bed-Chair independent with FWW NOT MET 6. Chair-Bed independent with FWW NOT MET 7. Independent gait on level surface with use of FWW for at least 30 feet without report of pain nor dyspnea NOT MET 8. Good static and dynamic standing balance/tolerance NOT MET DISCHARGE RECOMMENDATIONS: [] ? Home with no services [] [] ? Home with services [specify] [] ? Home with outpatient PT [] [X] ? Return to SNF for continued rehabilitation.? Patient will benefit from retirement facility placement for continued skilled physical therapy services in order to progress mobility level, strength, and balance.? Has good prognosis for independent in-room ambulation using FWW. [] ? [employer] Care [] [] ? SNF versus LTC based on ability to participate and progress [] TREATMENT CODE/TIME: ROMINA Thank you for the opportunity to participate in the care of this patient. Cindy Aaron PT, DPT, CLT [facility] [place], [place]
== END 2022-10-18 13:08 | disposition skilled nursing facility (03) | DRG 602 ==
LOC: ER 15:09 → MS 16:19
PROVIDERS: Internal Medicine; Admitting Provider Internal Medicine; Emergency Provider Nurse Practitioner Family; PCP Family Medicine; Visit Provider Internal Medicine
DX: L03.115 Cellulitis of right lower limb; I50.33 Acute on chronic diastolic (congestive) heart failure; I13.0 Hypertensive heart and chronic kidney disease with heart failure and stage 1 through stage 4 chronic kidney disease, or unspecified chronic kidney disease; I48.20 Chronic atrial fibrillation, unspecified; Z68.42 Body mass index [BMI] 45.0-49.9, adult; L03.116 Cellulitis of left lower limb; I27.20 Pulmonary hypertension, unspecified; Z79.4 Long term (current) use of insulin; E11.22 Type 2 diabetes mellitus with diabetic chronic kidney disease; N18.9 Chronic kidney disease, unspecified; F32.A Depression, unspecified; H80.93 Unspecified otosclerosis, bilateral; H90.6 Mixed conductive and sensorineural hearing loss, bilateral; J84.89 Other specified interstitial pulmonary diseases; G47.33 Obstructive sleep apnea (adult) (pediatric); E11.42 Type 2 diabetes mellitus with diabetic polyneuropathy; E11.51 Type 2 diabetes mellitus with diabetic peripheral angiopathy without gangrene; E11.610 Type 2 diabetes mellitus with diabetic neuropathic arthropathy; Z79.01 Long term (current) use of anticoagulants; E11.65 Type 2 diabetes mellitus with hyperglycemia; E03.9 Hypothyroidism, unspecified; E55.9 Vitamin D deficiency, unspecified; Z86.73 Personal history of transient ischemic attack (TIA), and cerebral infarction without residual deficits; M54.31 Sciatica, right side; D75.1 Secondary polycythemia; M15.9 Polyosteoarthritis, unspecified; M10.9 Gout, unspecified; E78.5 Hyperlipidemia, unspecified; E66.01 Morbid (severe) obesity due to excess calories; Z89.421 Acquired absence of other right toe(s); I70.209 Unspecified atherosclerosis of native arteries of extremities, unspecified extremity; Z87.891 Personal history of nicotine dependence; Z66 Do not resuscitate; J20.9 Acute bronchitis, unspecified; R09.02 Hypoxemia; K59.00 Constipation, unspecified; N28.9 Disorder of kidney and ureter, unspecified
CPT/HCPCS: 36410; 36415; 80048; 80053; 82805; 82947; 84145; 87040; 87449; 87493; 87635; 87637; 93005; 93308; 94640; 96374; 96375; 97110; 97162; 97530; 99285; J3490; 71045; 74019; 81003; 81015; 83735; 83880; 84484; 85025; 86140; 87070; 87086; 87205; 87385; 87899; 93010; 94660; 94664; 94667; 94668; 94760; 99223; 99232; 99233; 99239; J0780; J1940; J2405; J3480; J7512; J7613; J7620; J7644

== ENCOUNTER 2022-10-20 18:06 | Outpatient (REF) | payer MEDICARE, MEDICAID, SELFPAY ==
[2022-10-20 17:28] LABS: Abs Immature Grans 0.09 10^3/uL (0.0-0.06); Absolute Basophil Count 0.07 10^3/uL (0.0-0.2); Absolute Eosinophil Count 0.05 10^3/uL (0.0-0.7); Absolute Lymphocyte Count 2.19 10^3/uL (1.2-3.4); Absolute Neutrophil Count 7.98 10^3/uL (1.2-6.7); Basophils % 0.6; Eosinophils % 0.4; HCT 39.1 % (36.0-46.0); Immature Grans % 0.8; Lymphocytes % 18.9; MCH 31.6 pg (27.0-33.0); MCHC 33.2 % (32.0-36.0); MCV 95 fL (80-95); MPV 10.9 fL (8.0-11.0); Monocytes % 10.4; Neutrophils % 68.9; Platelet Count 294 10^3/uL (130-400); RBC 4.12 10^6/uL (3.93-5.22); RDW 15.4 % (11.7-14.6); RDW-SD 51.6 fL; WBC 11.58 10^3/uL (4.4-10.8)
[2022-10-20 17:40] LABS: Iron 63 ug/dL (50-170); Total Iron Binding Capacity 295 ug/dL (250-450); Transferrin Sat 21 % (15-50)
[2022-10-20 17:42] LABS: Hemoglobin A1C 8.5 % (<5.7)
[2022-10-20 18:02] LABS: Vitamin D 25 Total 28.6 ng/mL (30-100)
[2022-10-20 18:19] LABS: ALT 49 U/L (14-59); AST 45 U/L (15-37); Albumin 3.5 g/dL (3.4-5.0); Alkaline Phosphatase 102 U/L (46-116); Anion Gap 10.6 mmol/L (3-11); BUN 48 mg/dL (7-18); Bilirubin, Total 2.4 mg/dL (0.2-1.0); CO2 29.4 mmol/L (21.0-32.0); CREATININE 2.2 mg/dL (0.55-1.02); Calcium 8.8 mg/dL (8.5-10.1); Chloride 93 mmol/L (98-107); Estimated GFR 23.53 (mL/min/1.73m2); Ferritin 270 ng/mL (8-252); Glucose 138 mg/dL (74-106); Magnesium 2.4 mg/dL (1.8-2.4); Potassium 4.3 mmol/L (3.5-5.1); Sodium 133 mmol/L (136-145); TSH (W/Ref FT4) 3.53 uIU/mL (0.36-3.74); Vitamin B12 1792 pg/mL (193-986)
[2022-10-20 18:20] LABS: Folate > 20.0 ng/mL (8.6-20.0)
[2022-10-20 18:45] LABS: NT-proBNP 1706 pg/mL (<300)
== END 2022-10-20 18:07 | disposition home or self-care (01) ==
LOC: LBN 18:06
PROVIDERS: PCP Family Medicine; Visit Provider Nurse Practitioner Gerontology
DX: R68.89 Other general symptoms and signs (principal); I50.33 Acute on chronic diastolic (congestive) heart failure; E11.22 Type 2 diabetes mellitus with diabetic chronic kidney disease; N18.9 Chronic kidney disease, unspecified; D64.9 Anemia, unspecified; E78.5 Hyperlipidemia, unspecified; D75.1 Secondary polycythemia; I10 Essential (primary) hypertension; E03.9 Hypothyroidism, unspecified; Z79.899 Other long term (current) drug therapy; E55.9 Vitamin D deficiency, unspecified
CPT/HCPCS: 80053; 82306; 82607; 82728; 82746; 83036; 83540; 83550; 83735; 83880; 84443; 85025

== ENCOUNTER 2022-10-26 16:33 | Outpatient (REF) | payer MEDICARE, MEDICAID, SELFPAY ==
[2022-10-26 17:50] LABS: Abs Immature Grans 0.04 10^3/uL (0.0-0.06); Absolute Basophil Count 0.09 10^3/uL (0.0-0.2); Absolute Lymphocyte Count 1.92 10^3/uL (1.2-3.4); Absolute Monocyte Count 1.08 10^3/uL (0.1-0.8); Basophils % 0.8; Eosinophils % 1.9; HCT 42.7 % (36.0-46.0); HGB 13.8 g/dL (11.2-15.7); Immature Grans % 0.4; MCH 30.9 pg (27.0-33.0); MCHC 32.3 % (32.0-36.0); MCV 96 fL (80-95); MPV 9.9 fL (8.0-11.0); Monocytes % 9.6; Neutrophils % 70.3; Platelet Count 329 10^3/uL (130-400); RBC 4.47 10^6/uL (3.93-5.22); RDW 17.1 % (11.7-14.6); RDW-SD 59.5 fL
[2022-10-26 17:52] LABS: Absolute Eosinophil Count 0.21 10^3/uL (0.0-0.7); Absolute Neutrophil Count 7.94 10^3/uL (1.2-6.7)
[2022-10-26 17:59] LABS: ALT 46 U/L (14-59); AST 48 U/L (15-37); Albumin 3.7 g/dL (3.4-5.0); Alkaline Phosphatase 113 U/L (46-116); Anion Gap 11.2 mmol/L (3-11); BUN 24 mg/dL (7-18); Bilirubin, Total 1.9 mg/dL (0.2-1.0); CO2 25.8 mmol/L (21.0-32.0); CREATININE 1.5 mg/dL (0.55-1.02); Calcium 9.1 mg/dL (8.5-10.1); Chloride 100 mmol/L (98-107); Estimated GFR 37.26 (mL/min/1.73m2); Glucose 187 mg/dL (74-106); NT-proBNP 1608 pg/mL (<300); Potassium 4.2 mmol/L (3.5-5.1); Sodium 137 mmol/L (136-145); Total Protein 7.3 g/dL (6.4-8.2)
== END 2022-10-26 16:34 | disposition home or self-care (01) ==
LOC: LBN 16:33
PROVIDERS: PCP Family Medicine; Visit Provider Nurse Practitioner Gerontology
DX: I50.32 Chronic diastolic (congestive) heart failure (principal); E11.22 Type 2 diabetes mellitus with diabetic chronic kidney disease; N18.9 Chronic kidney disease, unspecified; R68.89 Other general symptoms and signs; D64.9 Anemia, unspecified
CPT/HCPCS: 80053; 83880; 85025

== ENCOUNTER 2022-10-28 02:37 | Outpatient (CLI) | payer MEDICARE, MEDICAID, SELFPAY ==
--- NOTE | 2022-10-28 07:45 | DI.CT_ITS ---
Exam(s) CT CHEST WO EXAM: CT CHEST WO CLINICAL HISTORY: f/u ground glass infiltrates after prednisone,j84.9 TECHNIQUE: Imaging Protocol: Axial computed tomography images with coronal and sagittal reformatted images were created and reviewed CONTRAST MATERIAL: Noncontrast COMPARISON: CT CHEST WITH CONTRAST from 05/20/2017 CR,XR XR CHEST 2V PA LATERAL from 08/03/[address] CHEST PE ABD PELVIS W from 09/30/[address] CHEST W from 04/19/2022 CR XR PORTABLE CHEST AP from 04/22/2022 CR,XR XR CHEST 2V PA LATERAL from 06/13/[address] CHEST HIGH RESOLUTION from 07/02/2022 CR XR PORTABLE CHEST AP from 10/08/2022 RF RF MODIFIED SPEECH BA SWALLOW from 10/27/2022 FINDINGS: The exam is limited by respiratory motion particularly at the lung bases. Pulmonary parenchyma: No consolidation. No dominant measurable mass. Areas of bilateral upper lobe s carring interstitial thickening, similar to prior. Ground-glass opacities do persist. Lower lobes d ifficult to evaluate due to motion. Tracheobronchial tree: No bronchiectasis or mucous plugging. Mediastinum and Jody: No dominant adenopathy or fluid collection. Pleura: No effusion or pneumothorax. Heart: The heart is [id number] dilated. Mild coronary artery calcifications are seen. Aorta: Thoracic aorta non-dilated. Upper abdomen: Respiratory motion. Bones: Degenerative changes. Soft tissues: Unremarkable. IMPRESSION: Exam limited by respiratory motion. Stable area of upper lobe scarring and interstitial thickening with surrounding ground-glass opacitie s. No findings to suggest malignancy. RADIATION DOSE DELIVERED: 839.62mGy.cm Total DLP DATA REPOSITORY: All CT scans at this facility are submitted to the National Radiology Data Registry (NRDR) Dose Index Registry (DIR) with the [employer] (A[employer]). RADIATION OPTIMIZATION: All CT scans at this facility use at least one of these dose optimization te chniques: automated exposure control; mA and/or kV adjustment per patient size (includes targeted exa ms where dose is matched to clinical indication); or iterative reconstruction.
== END 2022-10-28 02:57 ==
LOC: DI 02:37
PROVIDERS: PCP Family Medicine; Visit Provider Student in an Organized Health Care Education/Training Program
DX: J84.9 Interstitial pulmonary disease, unspecified (principal)
CPT/HCPCS: 71250

== ENCOUNTER 2022-12-20 19:46 | Outpatient (REF) | payer MEDICARE, MEDICAID, SELFPAY ==
[2022-12-20 19:53] LABS: Abs Immature Grans 0.03 10^3/uL (0.0-0.06); Absolute Basophil Count 0.07 10^3/uL (0.0-0.2); Absolute Eosinophil Count 0.15 10^3/uL (0.0-0.7); Absolute Lymphocyte Count 1.71 10^3/uL (1.2-3.4); Absolute Monocyte Count 0.98 10^3/uL (0.1-0.8); Absolute Neutrophil Count 6.75 10^3/uL (1.2-6.7); Basophils % 0.7; Eosinophils % 1.5; HCT 49.1 % (36.0-46.0); HGB 15.1 g/dL (11.2-15.7); Immature Grans % 0.3; Lymphocytes % 17.6; MCH 29.4 pg (27.0-33.0); MCHC 30.8 % (32.0-36.0); MCV 96 fL (80-95); MPV 10.6 fL (8.0-11.0); Monocytes % 10.1; Neutrophils % 69.8; Platelet Count 269 10^3/uL (130-400); RBC 5.13 10^6/uL (3.93-5.22); RDW 15.2 % (11.7-14.6); RDW-SD 53.4 fL; WBC 9.69 10^3/uL (4.4-10.8)
[2022-12-20 19:59] LABS: ESR 77 mm/hr (0-30)
[2022-12-20 20:40] LABS: ALT 37 U/L (14-59); AST 32 U/L (15-37); Albumin 3.8 g/dL (3.4-5.0); Alkaline Phosphatase 131 U/L (46-116); Anion Gap 9.8 mmol/L (3-11); BUN 31 mg/dL (7-18); Bilirubin, Total 0.8 mg/dL (0.2-1.0); CO2 30.2 mmol/L (21.0-32.0); CREATININE 1.4 mg/dL (0.55-1.02); Calcium 9.2 mg/dL (8.5-10.1); Chloride 98 mmol/L (98-107); Estimated GFR 40.47 (mL/min/1.73m2); Glucose 209 mg/dL (74-106); Sodium 138 mmol/L (136-145); Total Protein 7.9 g/dL (6.4-8.2)
[2022-12-20 20:42] LABS: Hemoglobin A1C 8.2 % (<5.7)
== END 2022-12-20 19:47 | disposition home or self-care (01) ==
LOC: LBN 19:46
PROVIDERS: Visit Provider Nurse Practitioner Gerontology
DX: E11.65 Type 2 diabetes mellitus with hyperglycemia (principal); E83.42 Hypomagnesemia; D51.9 Vitamin B12 deficiency anemia, unspecified; R70.0 Elevated erythrocyte sedimentation rate
CPT/HCPCS: 80053; 85652; 83036; 85025

== ENCOUNTER 2023-01-04 13:43 | Outpatient (REF) | payer MEDICARE, MEDICAID, SELFPAY ==
[2023-01-04 14:39] LABS: Abs Immature Grans 0.02 10^3/uL (0.0-0.06); Absolute Basophil Count 0.05 10^3/uL (0.0-0.2); Absolute Eosinophil Count 0.17 10^3/uL (0.0-0.7); Absolute Lymphocyte Count 1.92 10^3/uL (1.2-3.4); Absolute Neutrophil Count 5.63 10^3/uL (1.2-6.7); Basophils % 0.6; HCT 47.7 % (36.0-46.0); HGB 15.6 g/dL (11.2-15.7); Immature Grans % 0.2; Lymphocytes % 22.1; MCHC 32.7 % (32.0-36.0); MCV 92 fL (80-95); MPV 10.6 fL (8.0-11.0); Monocytes % 10.4; Neutrophils % 64.7; Platelet Count 277 10^3/uL (130-400); RDW 15.2 % (11.7-14.6); RDW-SD 50.9 fL; WBC 8.69 10^3/uL (4.4-10.8)
[2023-01-04 15:25] LABS: ALT 44 U/L (14-59); AST 50 U/L (15-37); Albumin 3.8 g/dL (3.4-5.0); Alkaline Phosphatase 127 U/L (46-116); Anion Gap 10.2 mmol/L (3-11); BUN 49 mg/dL (7-18); CO2 26.8 mmol/L (21.0-32.0); CREATININE 1.6 mg/dL (0.55-1.02); Calcium 9.2 mg/dL (8.5-10.1); Chloride 95 mmol/L (98-107); Estimated GFR 34.48 (mL/min/1.73m2); Glucose 168 mg/dL (74-106); NT-proBNP 1141 pg/mL (<300); Potassium 4.2 mmol/L (3.5-5.1); Sodium 132 mmol/L (136-145); Total Protein 8.1 g/dL (6.4-8.2)
== END 2023-01-04 13:44 | disposition home or self-care (01) ==
LOC: LBN 13:43
PROVIDERS: Visit Provider Nurse Practitioner Gerontology
DX: R06.00 Dyspnea, unspecified (principal); R05.9 Cough, unspecified
CPT/HCPCS: 80053; 83880; 85025

== ENCOUNTER → 2023-01-28 13:17 | Outpatient (BNVA) | payer MEDICARE, MEDICAID, SELFPAY | PROVIDERS: Visit Provider Internal Medicine Cardiovascular Disease | DX: I48.20 Chronic atrial fibrillation, unspecified (principal); Z79.01 Long term (current) use of anticoagulants; I27.29 Other secondary pulmonary hypertension; G47.8 Other sleep disorders; I50.32 Chronic diastolic (congestive) heart failure | CPT/HCPCS: 99213 ==

== ENCOUNTER → 2023-03-01 02:16 | Outpatient (CLI) | payer MEDICARE, MEDICAID, SELFPAY ==
--- NOTE | 2023-03-01 | DI.MAMMO_ITS ---
Exam(s) MAMMO SCREENING EXAM: MAMMO SCREENING CLINICAL HISTORY: SCREENING, HEALTH WELLNESS CHECK. TECHNIQUE: Bilateral full field digital CC and MLO mammographic images were obtained with 3D tomosyn thesis and utilizing computer aided detection (CAD). COMPARISON: Prior mammograms were reviewed. FINDINGS: There has been no significant change in the appearance and distribution of the fibroglandular tissue which is again noted be mostly fatty.. There are no new spiculated masses nor malignant appearing microcalcification groups. There is no significant architectural distortion nor skin thickening-retraction. IMPRESSION: No radiographic evidence of malignancy. BI-RADS Category 1 - Negative Breast Density - Category A - Almost entirely fatty Breast density Category C or D implies that the patient has dense breast tissue. Dense breast tissue can make it harder to find cancer on a mammogram. Dense breast tissue is also associated with an incr eased risk of breast cancer. This information about the result of the mammogram report was provided to the patient to raise their awareness. Use this report when you speak with the patient about their risks for breast cancer, which includes their family history. At that time, you may recommend additional screening tests (Ultrasoun d or MRI) as these tests may add significant information. A negative radiographic report should not delay biopsy if a dominant or clinically suspicious mass is present. Up to ten percent of cancers are not identified on mammography. A negative report may reinforce clinical impression. Adenosis and dense breasts may obscure an underlying neoplasm. False positive reports average 6 to 10%. Patient will receive a letter notifying them of these results.
== END ==
PROVIDERS: Visit Provider Nurse Practitioner Gerontology
DX: Z12.31 Encounter for screening mammogram for malignant neoplasm of breast (principal)
CPT/HCPCS: 77063; 77067

== ENCOUNTER 2023-03-22 17:48 | Outpatient (REF) | payer MEDICARE, MEDICAID, SELFPAY ==
[2023-03-22 18:01] LABS: Abs Immature Grans 0.03 10^3/uL (0.0-0.06); Absolute Basophil Count 0.07 10^3/uL (0.0-0.2); Absolute Eosinophil Count 0.17 10^3/uL (0.0-0.7); Absolute Lymphocyte Count 1.61 10^3/uL (1.2-3.4); Absolute Monocyte Count 0.81 10^3/uL (0.1-0.8); Absolute Neutrophil Count 7.18 10^3/uL (1.2-6.7); Basophils % 0.7; Eosinophils % 1.7; HCT 50.8 % (36.0-46.0); HGB 15.9 g/dL (11.2-15.7); Immature Grans % 0.3; Lymphocytes % 16.3; MCH 28.9 pg (27.0-33.0); MCHC 31.3 % (32.0-36.0); MCV 92 fL (80-95); MPV 10.6 fL (8.0-11.0); Monocytes % 8.2; Neutrophils % 72.8; Platelet Count 229 10^3/uL (130-400); RBC 5.51 10^6/uL (3.93-5.22); RDW 16.2 % (11.7-14.6); RDW-SD 55.2 fL; WBC 9.87 10^3/uL (4.4-10.8)
[2023-03-22 18:45] LABS: ALT 29 U/L (14-59); AST 28 U/L (15-37); Albumin 3.7 g/dL (3.4-5.0); Alkaline Phosphatase 140 U/L (46-116); Anion Gap 12.6 mmol/L (3-11); BUN 31 mg/dL (7-18); Bilirubin, Total 1.2 mg/dL (0.2-1.0); CO2 25.4 mmol/L (21.0-32.0); CREATININE 1.4 mg/dL (0.55-1.02); Calcium 9.1 mg/dL (8.5-10.1); Chloride 98 mmol/L (98-107); Estimated GFR 40.47 (mL/min/1.73m2); Glucose 166 mg/dL (74-106); NT-proBNP 1354 pg/mL (<300); Potassium 4.2 mmol/L (3.5-5.1); Sodium 136 mmol/L (136-145)
[2023-03-22 19:59] LABS: Total Protein 7.6 g/dL (6.4-8.2)
== END 2023-03-22 17:49 | disposition home or self-care (01) ==
LOC: LBN 17:48
PROVIDERS: Visit Provider Nurse Practitioner Gerontology
DX: I50.32 Chronic diastolic (congestive) heart failure; J21.0 Acute bronchiolitis due to respiratory syncytial virus; G89.4 Chronic pain syndrome
CPT/HCPCS: 80053; 83880; 85025

== ENCOUNTER 2023-04-12 01:57 | Outpatient (CLI) | payer MEDICARE, MEDICAID, SELFPAY ==
[2023-04-12 08:45] LABS: Abs Immature Grans 0.04 10^3/uL (0.0-0.06); Absolute Basophil Count 0.08 10^3/uL (0.0-0.2); Absolute Eosinophil Count 0.13 10^3/uL (0.0-0.7); Absolute Lymphocyte Count 1.87 10^3/uL (1.2-3.4); Absolute Monocyte Count 0.91 10^3/uL (0.1-0.8); Absolute Neutrophil Count 8.59 10^3/uL (1.2-6.7); Basophils % 0.7; Eosinophils % 1.1; HCT 48.9 % (36.0-46.0); HGB 15.9 g/dL (11.2-15.7); Immature Grans % 0.3; Lymphocytes % 16.1; MCH 30.3 pg (27.0-33.0); MCHC 32.5 % (32.0-36.0); MCV 93 fL (80-95); MPV 10.6 fL (8.0-11.0); Monocytes % 7.8; Platelet Count 292 10^3/uL (130-400); RBC 5.24 10^6/uL (3.93-5.22); RDW 15.9 % (11.7-14.6); RDW-SD 54.1 fL; WBC 11.61 10^3/uL (4.4-10.8)
[2023-04-12 09:14] LABS: Bilirubin Negative (Negative); Blood Negative (Negative); Clarity Clear (Clear); Glucose >=1000 mg/dL (Negative); Ketones Negative (Negative); Leukocyte Esterase Negative (Negative); Nitrite Negative (Negative); Urobilinogen 0.2 mg/dL (Up to 0.2)
[2023-04-12 09:19] LABS: Albumin 3.5 g/dL (3.4-5.0); BUN 41 mg/dL (7-18); CREATININE 1.7 mg/dL (0.55-1.02); Calcium 9.7 mg/dL (8.5-10.1); Chloride 97 mmol/L (98-107); Estimated GFR 32.06 (mL/min/1.73m2); Glucose 314 mg/dL (74-106); PHOSPHORUS 4.1 mg/dL (2.6-4.7); Potassium 4.6 mmol/L (3.5-5.1); Sodium 132 mmol/L (136-145); Uric Acid 9.5 mg/dL (2.6-6.0)
[2023-04-12 09:21] LABS: Hemoglobin A1C 7.7 % (<5.7)
[2023-04-12 09:38] LABS: Vitamin D 25 Total 30.5 ng/mL (30-100)
[2023-04-12 09:43] LABS: Ferritin 102 ng/mL (8-252)
[2023-04-12 10:29] LABS: COMMENT (LAB VIEW ONLY) 72.39 mg/dL; Prot/Crea Ur Ratio 0.19
[2023-04-12 10:30] LABS: Iron 69 ug/dL (50-170); Microalb ug/mg Crea 94.1 ug/mg Cr; Total Iron Binding Capacity 321 ug/dL (250-450); Transferrin Sat 21 % (15-50)
[2023-04-12 20:04] LABS: Parathyroid Hormone,Intact 121 pg/mL (19-88)
[2023-04-13 14:44] LABS: Albumin, Urine % 58.9 %; Albumin, Urine mg/dL 12 mg/dL; Globulins, Urine % 41.1 %; Globulins, Urine mg/dL 8 mg/dL; Immunotyping, Urine (See Note); Total Protein Urine 20 mg/dL (See Note)
[2023-04-13 14:49] LABS: Albumin g/dL 3.4 g/dL (3.6-5.2); Total Protein 7.2 g/dL (6.3-8.2)
== END 2023-04-12 01:58 | disposition home or self-care (01) ==
DX: N18.9 Chronic kidney disease, unspecified (principal); E11.65 Type 2 diabetes mellitus with hyperglycemia; E83.50 Unspecified disorder of calcium metabolism
CPT/HCPCS: 36415; 80048; 82043; 82306; 82570; 84156; 84166; 86335; 81003; 82040; 82565; 82728; 83036; 83540; 83550; 83970; 84100; 84165; 84550; 85025

== ENCOUNTER 2023-04-27 17:34 | Outpatient (REF) | payer MEDICARE, MEDICAID, SELFPAY ==
[2023-04-27 17:49] LABS: Abs Immature Grans 0.06 10^3/uL (0.0-0.06); Absolute Basophil Count 0.07 10^3/uL (0.0-0.2); Absolute Lymphocyte Count 1.79 10^3/uL (1.2-3.4); Absolute Neutrophil Count 8.63 10^3/uL (1.2-6.7); Basophils % 0.6; Eosinophils % 1.7; HCT 52.9 % (36.0-46.0); HGB 16.8 g/dL (11.2-15.7); Immature Grans % 0.5; Lymphocytes % 15.6; MCH 29.6 pg (27.0-33.0); MCHC 31.8 % (32.0-36.0); MCV 93 fL (80-95); MPV 10.7 fL (8.0-11.0); Monocytes % 6.4; Neutrophils % 75.2; Platelet Count 252 10^3/uL (130-400); RBC 5.68 10^6/uL (3.93-5.22); RDW 15.4 % (11.7-14.6); RDW-SD 52.9 fL; WBC 11.48 10^3/uL (4.4-10.8)
[2023-04-27 17:55] LABS: Absolute Monocyte Count 0.73 10^3/uL (0.1-0.8)
[2023-04-27 18:19] LABS: ALT 44 U/L (14-59); AST 35 U/L (15-37); Alkaline Phosphatase 171 U/L (46-116); Anion Gap 11.1 mmol/L (3-11); CO2 23.9 mmol/L (21.0-32.0); Chloride 97 mmol/L (98-107); Glucose 282 mg/dL (74-106); Potassium 3.9 mmol/L (3.5-5.1); Sodium 132 mmol/L (136-145); Total Protein 8.5 g/dL (6.4-8.2)
[2023-04-27 18:24] LABS: Hemoglobin A1C 7.7 % (<5.7)
[2023-04-27 18:26] LABS: Albumin 3.9 g/dL (3.4-5.0); BUN 48 mg/dL (7-18); CREATININE 1.4 mg/dL (0.55-1.02); Calcium 9.7 mg/dL (8.5-10.1); Estimated GFR 40.47 (mL/min/1.73m2)
== END 2023-04-27 17:35 | disposition home or self-care (01) ==
LOC: LBN 17:34
PROVIDERS: Visit Provider Nurse Practitioner Gerontology
DX: I50.33 Acute on chronic diastolic (congestive) heart failure (principal); I48.20 Chronic atrial fibrillation, unspecified; J81.1 Chronic pulmonary edema; J21.0 Acute bronchiolitis due to respiratory syncytial virus; E83.42 Hypomagnesemia; E11.65 Type 2 diabetes mellitus with hyperglycemia
CPT/HCPCS: 80053; 83036; 85025

== ENCOUNTER 2023-06-08 20:08 | Outpatient (REF) | payer MEDICARE, MEDICAID, SELFPAY ==
[2023-06-08 19:06] LABS: ALT 31 U/L (14-59); AST 28 U/L (15-37); Albumin 3.8 g/dL (3.4-5.0); Alkaline Phosphatase 173 U/L (46-116); Anion Gap 11.5 mmol/L (3-11); BUN 37 mg/dL (7-18); Bilirubin, Total 0.9 mg/dL (0.2-1.0); CO2 26.5 mmol/L (21.0-32.0); CREATININE 1.4 mg/dL (0.55-1.02); Calcium 9.3 mg/dL (8.5-10.1); Chloride 99 mmol/L (98-107); Estimated GFR 40.47 (mL/min/1.73m2); Glucose 216 mg/dL (74-106); NT-proBNP 1840 pg/mL (<300); Potassium 4.3 mmol/L (3.5-5.1); Sodium 137 mmol/L (136-145); Total Protein 7.9 g/dL (6.4-8.2)
== END 2023-06-08 20:09 | disposition home or self-care (01) ==
LOC: LBN 20:08
PROVIDERS: Visit Provider Nurse Practitioner Gerontology
DX: J81.1 Chronic pulmonary edema (principal); E78.49 Other hyperlipidemia; E83.42 Hypomagnesemia; I50.33 Acute on chronic diastolic (congestive) heart failure
CPT/HCPCS: 80053; 83880

== ENCOUNTER 2023-06-15 09:43 | Emergency (ER) | payer MEDICARE, MEDICAID, SELFPAY ==
[2023-06-15] VITALS (12 sets, daily range): BP systolic 106–138; BP diastolic 32–67; PULSE 52–63; RESP 20; TEMP 36.8; O2SAT 92–97
--- NOTE | 2023-06-15 10:15 | RT.EKG_ITS ---
APPROVED REPORT Exam: Resting ECG Reason for Exam: back pain Patient Location: E HR:67 bpm ECG Measurements Heart Rate 67 AXIS ND [id number] P [id number] QRSd 87 QRS 27 QT 427 T 144 QTc 453 Conclusion Atrial fibrillation...V-rate 50- 78, irreg A-activity Repol abnrm suggests ischemia, anterolateral...ST dep, T neg, I aVL V2-V6 afib, normal rate, normal axis, t wave inversions st depression I aL, mild st elevation aVR, lateral t wave inverions, all largely unchanged from recent ecg in september of this year
[2023-06-15 10:19] LABS: Bilirubin Negative (Negative); Blood Trace-intact (Negative); Clarity Clear (Clear); Glucose >=1000 mg/dL (Negative); Ketones Negative (Negative); Leukocyte Esterase Small (Negative); Nitrite Negative (Negative); Urobilinogen 0.2 mg/dL (Up to 0.2)
[2023-06-15 10:26] LABS: Bacteria Many HPF (Negative); C & S Indicated? Yes; Casts Negative LPF (Negative); Crystals Negative HPF (Negative); Epithelial Cells Few HPF (Negative); Mucus Negative (Negative)
[2023-06-15 10:33] LABS: Abs Immature Grans 0.06 10^3/uL (0.0-0.06); Absolute Basophil Count 0.08 10^3/uL (0.0-0.2); Absolute Eosinophil Count 0.09 10^3/uL (0.0-0.7); Absolute Lymphocyte Count 1.81 10^3/uL (1.2-3.4); Absolute Monocyte Count 0.84 10^3/uL (0.1-0.8); Basophils % 0.7; Eosinophils % 0.8; HCT 48.4 % (36.0-46.0); HGB 15.5 g/dL (11.2-15.7); Immature Grans % 0.5; Lymphocytes % 15.7; MCH 29.5 pg (27.0-33.0); MCV 92 fL (80-95); MPV 10.3 fL (8.0-11.0); Monocytes % 7.3; Platelet Count 245 10^3/uL (130-400); RBC 5.26 10^6/uL (3.93-5.22); RDW 15.2 % (11.7-14.6); RDW-SD 51.7 fL; WBC 11.55 10^3/uL (4.4-10.8)
[2023-06-15 10:35] LABS: Absolute Neutrophil Count 8.66 10^3/uL (1.2-6.7)
[2023-06-15 10:56] LABS: ALT 22 U/L (14-59); AST 31 U/L (15-37); Albumin 3.5 g/dL (3.4-5.0); Alkaline Phosphatase 141 U/L (46-116); Anion Gap 10.2 mmol/L (3-11); BUN 32 mg/dL (7-18); CO2 27.8 mmol/L (21.0-32.0); CREATININE 1.4 mg/dL (0.55-1.02); Calcium 9.2 mg/dL (8.5-10.1); Chloride 99 mmol/L (98-107); Estimated GFR 40.47 (mL/min/1.73m2); Glucose 153 mg/dL (74-106); Lipase 13 U/L (16-77); Potassium 4.3 mmol/L (3.5-5.1); Sodium 137 mmol/L (136-145); Troponin I < 50 ng/L (<or=60)
--- NOTE | 2023-06-15 11:05 | ED.GENADUL_ITS ---
Discharge Plan Disposition Patient Disposition: Home Discharge Details Clinical Impression: Acute UTI Primary Care Provider: DIGNA BRUNO ED Provider: Clotilde Riggins Home Meds and New Rx's Prescriptions: New cephalexin 500 mg capsule 500 mg PO Q8H 7 Days Qty: 21 0RF Continued (DME) blood-glucose meter misc See Dose Instructions .ROUTE .MEDSUPPLY Qty: 1 0RF Dose Instruction: As directed Rx Instructions: As directed. AC and HS E11.9 Accucheck isi (DME) lancets 28 gauge misc 1 ea Miscellaneous TID & PRN Qty: 400 12RF Rx Instructions: FOR accucheck Isi METER. PT USES INSULIN. Ac andhs E11.65/Z79.4 (DME) Blood Glucose Test strip See Dose Instructions .ROUTE .MEDSUPPLY Qty: 400 5RF Dose Instruction: AC and HS Rx Instructions: AC and HS E11.21 vitamin B complex [Vitamins B Complex] Tablet 1 tab PO DAILY nitroglycerin 0.4 mg tablet, sublingual 0.4 mg sublingual Q5M PRN Rx Instructions: do not exceed 3 doses per episode polyethylene glycol 3350 [Miralax] 17 gram/dose powder 17 g PO .every other day PRN duloxetine 20 mg capsule, delayed rel sprinkle 20 mg PO DAILY torsemide 20 mg tablet 80 mg PO DAILY spironolactone 25 mg tablet 25 mg PO DAILY ipratropium-albuterol 0.5 mg-3 mg(2.5 mg base)/3 mL solution for nebulization 3 ml inhalation Q8H PRN insulin glargine [Lantus Solostar U-100 Insulin] 100 unit/mL (3 mL) insulin pen 68 unit SUBCUT BID Qty: 60 5RF empagliflozin 25 mg tablet 25 mg PO QAM Qty: 90 4RF (DME) insulin syringe needleless [BD Insulin Syringe Slip Tip] 1 mL syringe 1 ea Miscellaneous BID Qty: 120 12RF Rx Instructions: E11.65 (DME) pen needle, diabetic [Pen Needle] 30 gauge x 5/16 needle 1 ea Miscellaneous QID Qty: 300 6RF Rx Instructions: ultra fine [id number]; E11.65 AC and HS docusate sodium 100 mg capsule 100 mg PO QHS levothyroxine 75 mcg capsule 75 mcg PO HS ropinirole 3 mg tablet 2 mg PO QHS Patient Comments: Now taking 4 mg Rx Instructions: administer 1-3 hours before bedtime metoprolol succinate 50 mg Tablet Extended Release 24 Hr 50 mg PO DAILY bisacodyl [Dulcolax (bisacodyl)] 10 mg Suppository 10 mg ME PRN PRN fluticasone propionate [Flonase Allergy Relief] 50 mcg/actuation [place],Suspension 2 spray INTRANASAL BID insulin lispro [Humalog U-100 Insulin] 100 unit/mL solution 25 unit subcut AC Patient Comments: hold if BS < 100 Trelegy Ellipta 100-62.5-25 mcg Blister With Device 1 inh INHALATION DAILY magnesium oxide 400 mg magnesium Tablet 400 mg PO DAILY Trelegy Ellipta 100-62.5-25 mcg blister with device 1 inh inhalation DAILY lidocaine [Lidocaine Pain Relief] 4 % adhesive patch,medicated 1 patch topical DAILY Rx Instructions: may leave on for up to 12 hrs calcium carbonate-vitamin D3 [Calcium 600 + D(3)] 600 mg(1,500mg) -400 unit Tablet 1 tab PO BID acetaminophen [Tylenol] 325 MG tablet 650 mg PO BID PRN Eliquis 5 mg tablet 5 mg PO BID benzonatate 100 mg Capsule 100 mg PO BID omeprazole 20 mg Capsule,Delayed Release(Dr/Ec) 20 mg PO DAILY atorvastatin 40 mg Tablet 40 mg PO DAILY Lactobacillus acidophilus Tablet 1 tab PO DAILY Discharge Instructions Instructions: Urinary Tract Infection in Women (ED) Additional Instructions: Yogurt daily while on antibiotic Antibiotics until completed Recheck in 48 hours Please return with fever with any new or worsening complaints Tylenol 650 every 6 hours, do not exceed 3 g daily Discharge Data Discharge Date/Time-TO BE ENTERED AT DEPARTURE: 06/15/23 13:05 Medical Decision Making 72-year-old female presenting with left flank pain and urinary frequency suprapubic pressure, appears well, vitals stable Given age and comorbidities, CT of abdomen and pelvis was ordered, mild dilation of left ureter noted without hydronephrosis and evidence of cystitis per radiology discussion with Dr. Greer and my review, urinalysis is reassuring, will send for culture as patient is symptomatic for UTI Case discussed with Beverly Monteiro, nurse practitioner in urology given the dilated ureter and she recommends treating with antibiotics empirically at this time, pending urine culture, she will be placed on the referral list for outpatient reassessment given the dilation of her ureter Keflex was ordered empirically after reviewing prior urinalysis with sensitivity to this medication Patient has some mild left flank tenderness, mild suprapubic tenderness without rebound or guarding, no ecchymosis, alert and oriented x 4, lungs clear to auscultation, cardiac rate rhythm regular, distal pulses intact, no abdominal bruit or pulsatile mass Return precautions reviewed in detail patient expressed understanding HPI General Date/Time Provider Initiated Documentation: 06/15/23 10:04 . HPI Narrative: This 72-year-old female with history of CHF, atrial fibrillation, chronic anticoagulation, chronic kidney disease, chronic pain presents with report of left pleuritic pain and flank pain. Present for the past 4 days. Denies any hemoptysis. Worsen with breathing. Constant pain at this time. Denies any abdominal pain, nausea, vomiting. Denies dysuria or frequency. Denies any falls or injuries. Related Data Home Medications Medication Instructions Recorded Confirmed insulin syringe needleless 1 mL #120 SYRGS 04/10/18 03/02/23 (BD Insulin Syringe Slip Tip) pen needle, diabetic 30 gauge x ##300 04/10/18 03/02/2311/23 (Pen Needle) blood-glucose meter #1 ea 11/14/18 03/02/23 blood sugar diagnostic (Blood #400 ea 11/29/18 03/02/23 Glucose Test strips) lancets 28 gauge #400 ea 11/29/18 03/02/23 acetaminophen 325 mg tablet 650 mg PO BID PRN 08/26/20 06/15/23 (Tylenol) calcium carbonate 600 mg-vitamin 1 tab PO BID 08/26/20 06/15/23 D3 10 mcg (400 unit) tablet (Calcium 600 + D(3)) apixaban 5 mg tablet (Eliquis) 5 mg PO BID 10/07/20 06/15/23 benzonatate 100 mg capsule 100 mg PO BID 10/07/20 06/15/23 bisacodyl 10 mg rectal suppository 10 mg ME PRN PRN 03/06/21 06/15/23 (Dulcolax (bisacodyl)) fluticasone propionate 50 2 spray intranasal BID 03/06/21 06/15/23 mcg/actuation nasal spray,suspension (Flonase Allergy Relief) metoprolol succinate 50 mg 50 mg PO DAILY 03/06/21 06/15/23 tablet,extended release 24 hr nitroglycerin 0.4 mg sublingual 0.4 mg sublingual Q5M PRN 02/23/22 06/15/23 tablet polyethylene glycol 3350 17 17 g PO .every other day PRN 02/23/22 06/15/23 gram/dose oral powder (Miralax) Lactobacillus acidophilus 1 tab PO DAILY 04/22/22 06/15/23 atorvastatin 40 mg tablet 40 mg PO DAILY 04/22/22 06/15/23 omeprazole 20 mg capsule,delayed 20 mg PO DAILY 04/22/22 06/15/23 release vitamin B complex (Vitamins B 1 tab PO DAILY 05/25/22 06/15/23 Complex tablet) fluticasone fur. 100 mcg-umeclid 1 inh inhalation DAILY 06/13/22 06/15/23 62.5 mcg-vilant 25 mcg inhalat.powder (Trelegy Ellipta) magnesium oxide 400 mg PO DAILY 06/13/22 06/15/23 docusate sodium 100 mg capsule 100 mg PO QHS 08/23/22 06/15/23 levothyroxine 75 mcg capsule 75 mcg PO HS 08/23/22 06/15/23 duloxetine 20 mg capsule,delayed 20 mg PO DAILY 11/09/22 06/15/23 release sprinkle insulin lispro 100 unit/mL 25 unit subcut AC 11/09/22 06/15/23 subcutaneous solution (Humalog U-100 Insulin) ropinirole 3 mg tablet 2 mg PO QHS 11/09/22 06/15/23 spironolactone 25 mg tablet 25 mg PO DAILY 11/09/22 06/15/23 torsemide 20 mg tablet 80 mg PO DAILY 11/09/22 06/15/23 ipratropium 0.5 mg-albuterol 3 mg 3 ml inhalation Q8H PRN 01/19/23 06/15/23 (2.5 mg base)/3 mL nebulization soln empagliflozin 25 mg tablet 25 mg PO QAM #90 tabs 01/21/23 06/15/23 insulin glargine 100 unit/mL (3 68 unit (0.68 mL) subcut BID #60 mL 01/21/23 06/15/23 mL) subcutaneous pen (Lantus Solostar U-100 Insulin) cephalexin 500 mg capsule 500 mg PO Q8H 7 days #21 caps 06/15/23 fluticasone fur. 100 mcg-umeclid 1 inh inhalation DAILY 06/15/23 06/15/23 62.5 mcg-vilant 25 mcg inhalat.powder (Trelegy Ellipta) lidocaine 4 % topical patch 1 patch topical DAILY 06/15/23 06/15/23 (Lidocaine Pain Relief) Previous Rx's Medication Instructions Recorded insulin syringe needleless 1 mL #120 SYRGS 04/10/18 (BD Insulin Syringe Slip Tip) pen needle, diabetic 30 gauge x ##300 04/10/1811/23 (Pen Needle) blood-glucose meter #1 ea 11/14/18 blood sugar diagnostic (Blood #400 ea 11/29/18 Glucose Test strips) lancets 28 gauge #400 ea 11/29/18 empagliflozin 25 mg tablet 25 mg PO QAM #90 tabs 01/21/23 insulin glargine 100 unit/mL (3 68 unit (0.68 mL) subcut BID #60 mL 01/21/23 mL) subcutaneous pen (Lantus Solostar U-100 Insulin) cephalexin 500 mg capsule 500 mg PO Q8H 7 days #21 caps 06/15/23 Allergies Allergy/AdvReac Type Severity Reaction Status Date / Time No Known Allergies Allergy Verified 06/15/23 09:48 General Stated Complaint: FlankPain JOLEEN: 3 PFSH All Active Problems (Updated 06/15/23 @ 12:43 by SHERI Tesfaye) Acute UTI (Acute) Chronic heart failure with preserved ejection fraction (Acute) Chronic pain (Chronic) Leg edema (Acute) Advanced care planning/counseling discussion (Acute) Acute on chronic heart failure with preserved ejection fraction (HFpEF) (Acute) Chronic kidney disease (Chronic) Total avulsion of nail plate (Acute) Onycholysis (Acute) Fall (Acute) Contusion of left hip (Acute) Abrasion of right knee (Acute) 2+ pitting edema (Acute) Fluid overload, unspecified (Acute) Mixed conductive and sensorineural hearing loss, unspecified (Acute) Otosclerosis of both ears (Acute) Diaphoresis (Acute) Pneumonia (Acute) CAP (community acquired pneumonia) (Acute) Encounter for competency evaluation (Acute) Periprosthetic hip fracture (Acute) Left hip Acute pain of left hip (Acute) Hypokalemia (Acute) Atherosclerotic peripheral vascular disease of extremity (Acute) UTI (urinary tract infection) (Acute) Charcot's joint, left ankle and foot (Acute ~04/2019) Hypomagnesemia (Acute) Uncontrolled diabetes mellitus (Acute) Fungal dermatitis (Acute) Cellulitis of breast (Acute) Cataract (Acute) Cellulitis of lower extremity (Acute 10/31/14) Closed fracture of ankle (Acute) History of Achilles tendon repair (Acute) History of surgical procedure (Acute) Hypothyroidism (Chronic 01/09/13) Perforation of intestine (Acute) Vitamin D deficiency (Chronic 05/07/15) Type 2 diabetes mellitus with diabetic neuropathy (Chronic 05/13/15) [place] [facility] [place]ient ischemic attack (Chronic) Sensorineural hearing loss, bilateral (Chronic 05/24/17) Sciatica (Chronic) right; xray from 02/10 showed scattered spondylosis ant L4-5 on the left and mid lumbar scoliosis convex to the right Pulmonary hypertension (Chronic 04/13/17) Polycythemia (Chronic 03/08/17) Otosclerosis (Chronic 10/14/14) Osteoarthritis (Chronic) right shoulder AC-DJD, Glenohumoral jt. 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) Essential hypertension (Chronic 06/22/13) Elev transaminase/LDH (Chronic 01/09/13) Depressive disorder (Chronic) Cellulitis of leg (Chronic 10/31/14) Cataract (Chronic) mild; Fine [place] in macula-OD S/P SURGERY Amputated toe (Chronic) GANGRENOUS 2ND AND 3RD RIGHT TOES 11/14/17 Displaced bimalleolar fracture of right ankle (Chronic 05/29/14) Morbid obesity (Chronic) Hyperlipidemia (Chronic) Hypertension (Chronic) Depression (Chronic) Hypothyroidism (Chronic) Restless legs syndrome (Chronic) Sleep apnea with use of continuous positive airway pressure (CPAP) (Chronic) Venous stasis (Chronic) History of tobacco use (Chronic) a. quit in 1995 after approximately 30 pack years H/O fracture of ankle (Chronic) s. Left ankle 2011 Insomnia (Chronic) Hearing loss (Chronic) Left knee DJD (Chronic) DJD of shoulder (Chronic) a. on right Arthritis (Chronic) Toe gangrene (Chronic) Atrial fibrillation (Chronic) Pulmonary hypertension due to sleep-disordered breathing (Chronic) Amputated toe of right foot (Chronic) Medical History Abnormal PFTs Amputated toe of right foot Bilateral lower leg cellulitis (05/29/14) a. right worse than left Contusion Facial paralysis Fluid overload Palliative care encounter Pulmonary fibrosis Surgical History Amputation RIGHT SECOND AND THIRD TOES DUE TO DIABETIC ULCERS WITH CELLULITIS;11/14/17 DR. MAI Colonoscopy - MAC (~2003) Extraction of cataract 04/15/17 DR. ARRIETA; LEFT EYE 04/29/17 DR. ARRIETA; RIGHT EYE PROCEDURES REPAIR OF INTESTINE NEC puncture during colonoscopy ACHILLOTENOTOMY L Achilles tendon repair Family History Mother Neoplasm LUNG Father Heart disease Brother Heart disease Sister No problems noted. Grandfather Heart disease Grandfather Heart disease Grandmother Diabetes Grandmother Diabetes Sister No problems noted. Sister No problems noted. Sister Diabetes Sister No problems noted. Brother No problems noted. Brother No problems noted. Social History Smoking/Tobacco Use Status: Former Tobacco Use Smoking risk assessment performed?: Yes Alcohol Intake: never Drug use: Never Substance use type: does not use current occupation: [employer] @ [employer] Current gender identity: female Do you feel safe at home: Yes Do you feel safe in your relationship?: Yes Course Vital Signs Vital signs: Vital Signs Temperature 36.8 C 06/15/23 09:48 Pulse 60 06/15/23 09:48 Respiratory Rate 20 06/15/23 09:48 Blood Pressure 136/46 L 06/15/23 09:48 Pulse Oximetry 97 06/15/23 09:48 Temperature 36.8 C 06/15/23 09:48 Pulse 55 L 06/15/23 10:31 Respiratory Rate 20 06/15/23 09:48 Respiratory Effort Normal 06/15/23 10:02 Blood Pressure 117/67 06/15/23 10:31 Blood Pressure Mean 82 06/15/23 10:31 Pulse Oximetry 92 06/15/23 10:20 Oxygen Delivery Method Room Air 06/15/23 09:48 Oxygen Flow Rate 0 06/15/23 09:48 Pain Level 4 06/15/23 10:33 Lab/Test Results Lab/Test Results: 06/15/23 10:03 Urine - Reflex from Ua Urine Culture - Pending Laboratory Tests Range/Units 06/15/23 06/15/23 06/15/23 10:03 10:20 10:20 WBC (4.4-10.8) 10^3/uL 11.55 H RBC (3.93-5.22) 10^6/uL 5.26 H Hgb (11.2-15.7) g/dL 15.5 Hct (36.0-46.0) % 48.4 H MCV (80-95) fL 92 MCH (27.0-33.0) pg 29.5 MCHC (32.0-36.0) % 32.0 RDW (11.7-14.6) % 15.2 H Plt Count (130-400) 10^3/uL 245 MPV (8.0-11.0) fL 10.3 Immature Gran % 0.5 Neutrophils % 75.0 Lymphocytes % 15.7 Monocytes % 7.3 Eosinophils % 0.8 Basophils % 0.7 Nucleated RBC % (0.0-0.3) % 0.0 Absolute Neutrophils (1.2-6.7) 10^3/uL 8.66 H Absolute Lymphocytes (1.2-3.4) 10^3/uL 1.81 Absolute Monocytes (0.1-0.8) 10^3/uL 0.84 H Absolute Eosinophils (0.0-0.7) 10^3/uL 0.09 Absolute Basophils (0.0-0.2) 10^3/uL 0.08 Sodium (136-145) mmol/L 137 Potassium (3.5-5.1) mmol/L 4.3 Chloride (98-107) mmol/L 99 Carbon Dioxide (21.0-32.0) mmol/L 27.8 Anion Gap (3-11) mmol/L 10.2 BUN (7-18) mg/dL 32 H Creatinine (0.55-1.02) mg/dL 1.4 H Est GFR (CKD-EPI 2020) (mL/min/1.73m2) 40.47 Glucose (74-106) mg/dL 153 H Calcium (8.5-10.1) mg/dL 9.2 Total Bilirubin (0.2-1.0) mg/dL 1.0 AST (15-37) U/L 31 ALT (14-59) U/L 22 Alkaline Phosphatase (46-116) U/L 141 H Troponin I (<or=60) ng/L < 50 Total Protein (6.4-8.2) g/dL 8.0 Albumin (3.4-5.0) g/dL 3.5 Lipase (16-77) U/L 13 L Cancelled Urine Color (Yellow) Yellow Urine Clarity (Clear) Clear Urine pH (5-8) 6.0 Ur Specific [place] (1.005-1.025) 1.010 Urine Protein (Negative) mg/dL Negative Urine Ketones (Negative) mg/dL Negative Urine Blood (Negative) Trace-intact H Urine Nitrite (Negative) Negative Urine Bilirubin (Negative) Negative Urine Urobilinogen (Up to 0.2) mg/dL 0.2 Ur Leukocyte Esterase (Negative) Small H Urine RBC (0-2) HPF 5-10 H Urine WBC (0-5) HPF 10-20 H Ur Epithelial Cells (Negative) HPF Few Urine Crystals (Negative) HPF Negative Urine Bacteria (Negative) HPF Many Urine Casts (Negative) LPF Negative Urine Mucus (Negative) Negative Ur Culture Indicated? Yes Urine Glucose (Negative) mg/dL >=1000 H
[2023-06-15 11:09] LABS: D-Dimer 508 ng/mlFEU (<500)
--- NOTE | 2023-06-15 11:15 | DI.RAD_ITS ---
Exam(s) XR CHEST 2V PA LATERAL EXAM: XR CHEST 2V PA LATERAL CLINICAL HISTORY: left chest pain and shortness of breath. TECHNIQUE: 2D digital imaging was performed. COMPARISON: CR XR PORTABLE CHEST AP from 10/08/[address] CHEST WO from 10/28/2022 FINDINGS: 2 views: Again noted is cardiomegaly. Mediastinum not widened. Appearance of the lung gaming is unchanged with increased markings throughout both lung gaming, not a ssociated with pleural effusions. No pneumothorax. IMPRESSION: Increased markings throughout both lung gaming but without significant change compared to 10/08/2022. No new confluent infiltrates. No obvious pleural effusions. DATA REPOSITORY: RADIATION DOSE DELIVERED:
[2023-06-15] MEDS: Cephalexin 500 MG CAP PO (12:59)
--- NOTE | 2023-06-20 16:17 | NUR.NOTE ---
Accessed Pt chart to reprint a label for notes. Pt was transferred back to the [facility]
== END 2023-06-15 13:05 | disposition home or self-care (01) ==
PROVIDERS: Emergency Provider Physician Assistant
DX: R10.9 Unspecified abdominal pain; N39.0 Urinary tract infection, site not specified; E11.22 Type 2 diabetes mellitus with diabetic chronic kidney disease; I13.0 Hypertensive heart and chronic kidney disease with heart failure and stage 1 through stage 4 chronic kidney disease, or unspecified chronic kidney disease; N18.9 Chronic kidney disease, unspecified; I50.32 Chronic diastolic (congestive) heart failure; Z79.899 Other long term (current) drug therapy; Z79.4 Long term (current) use of insulin; Z79.01 Long term (current) use of anticoagulants
CPT/HCPCS: 36415; 80053; 83690; 93005; 99285; 71046; 81003; 81015; 84484; 85025; 85379; 87086; 93010; 99284

== ENCOUNTER 2023-07-21 10:53 | Emergency (ER) | payer MEDICARE, MEDICAID, SELFPAY ==
[2023-07-21] VITALS (32 sets, daily range): BP systolic 120–162; BP diastolic 39–103; PULSE 52–72; RESP 14–23; TEMP 37; O2SAT 90–100
--- NOTE | 2023-07-21 10:45 | RT.EKG_ITS ---
APPROVED REPORT Exam: Resting ECG Reason for Exam: low O2 sat Patient Location: E HR:65 bpm ECG Measurements Heart Rate 65 AXIS UT [id number] P [id number] QRSd 82 QRS 31 QT 451 T 170 QTc 471 Conclusion Atrial fibrillation...V-rate 54- 79, irreg A-activity Repol abnrm suggests ischemia, diffuse leads...ST-T neg, ant/lat/inf
--- NOTE | 2023-07-21 11:00 | DI.RAD_ITS ---
Exam(s) XR CHEST 2V PA LATERAL EXAM: XR CHEST 2V PA LATERAL CLINICAL HISTORY: shortness of breath. TECHNIQUE: 2D digital imaging was performed. COMPARISON: CR XR PORTABLE CHEST AP from 10/08/[address] CHEST WO from 10/28/2022 CR XR CHEST 2V PA LATERAL from 06/15/2023 FINDINGS: 2 views: Heart size is normal. The mediastinum is not widened. Increased interstitial patchy markings noted throughout both lung gaming but with minimal if any sign ificant change compared to prior chest radiographs of September 2022 and 06/15/2023. No pleural effusion s. No pneumothorax. No obvious fractures. IMPRESSION: As above. If clinically indicated CT scan may be performed for added sensitivity/specificity. DATA REPOSITORY: RADIATION DOSE DELIVERED:
--- NOTE | 2023-07-21 11:20 | ED.GENADUL_ITS ---
HPI General Stated Complaint: RespSymp JOLEEN: 3 Date/Time Provider Initiated Documentation: 07/21/23 11:00. HPI Narrative: 72 year-old female presents to ED today by EMS with a chief complaint of shortness of breath, cough for one week. Quality described as generalized cough, feels stuffed up, no radiation to chest pain, abdominal pain, numbness/tingling, syncope, nausea/vomiting, fever/chills, bowel/urinary chages. Severity is described as moderate. Palliating factors include nothing specific attempted- placed on 2L O2 by [place] by EMS. Provoking factors include nothing specific. Events leading up to the incident/Associated Symptoms: Patient has history of CHF. Patient is anticoagulated on Eliquis. Related Data Home Medications Medication Instructions Recorded Confirmed insulin syringe needleless 1 mL #120 SYRGS 04/10/18 07/14/23 (BD Insulin Syringe Slip Tip) pen needle, diabetic 30 gauge x ##300 04/10/18 07/14/2311/23 (Pen Needle) blood-glucose meter #1 ea 11/14/18 07/14/23 blood sugar diagnostic (Blood #400 ea 11/29/18 07/14/23 Glucose Test strips) lancets 28 gauge #400 ea 11/29/18 07/14/23 acetaminophen 325 mg tablet 650 mg PO BID PRN 08/26/20 07/14/23 (Tylenol) calcium carbonate 600 mg-vitamin 1 tab PO BID 08/26/20 07/14/23 D3 10 mcg (400 unit) tablet (Calcium 600 + D(3)) apixaban 5 mg tablet (Eliquis) 5 mg PO BID 10/07/20 07/14/23 benzonatate 100 mg capsule 100 mg PO BID 10/07/20 07/14/23 bisacodyl 10 mg rectal suppository 10 mg NM PRN PRN 03/06/21 07/14/23 (Dulcolax (bisacodyl)) fluticasone propionate 50 2 spray intranasal BID 03/06/21 07/14/23 mcg/actuation nasal spray,suspension (Flonase Allergy Relief) metoprolol succinate 50 mg 50 mg PO DAILY 03/06/21 07/14/23 tablet,extended release 24 hr nitroglycerin 0.4 mg sublingual 0.4 mg sublingual Q5M PRN 02/23/22 07/14/23 tablet polyethylene glycol 3350 17 17 g PO .every other day PRN 02/23/22 07/14/23 gram/dose oral powder (Miralax) Lactobacillus acidophilus 1 tab PO DAILY 04/22/22 07/14/23 atorvastatin 40 mg tablet 40 mg PO DAILY 04/22/22 07/14/23 omeprazole 20 mg capsule,delayed 20 mg PO DAILY 04/22/22 07/14/23 release vitamin B complex (Vitamins B 1 tab PO DAILY 05/25/22 07/14/23 Complex tablet) fluticasone fur. 100 mcg-umeclid 1 inh inhalation DAILY 06/13/22 07/14/23 62.5 mcg-vilant 25 mcg inhalat.powder (Trelegy Ellipta) magnesium oxide 400 mg PO DAILY 06/13/22 07/14/23 docusate sodium 100 mg capsule 100 mg PO QHS 08/23/22 07/14/23 levothyroxine 75 mcg capsule 75 mcg PO HS 08/23/22 07/14/23 duloxetine 20 mg capsule,delayed 20 mg PO DAILY 11/09/22 07/14/23 release sprinkle insulin lispro 100 unit/mL 25 unit subcut AC 11/09/22 07/14/23 subcutaneous solution (Humalog U-100 Insulin) ropinirole 3 mg tablet 2 mg PO QHS 11/09/22 07/14/23 spironolactone 25 mg tablet 25 mg PO DAILY 11/09/22 07/14/23 torsemide 20 mg tablet 80 mg PO DAILY 11/09/22 07/14/23 ipratropium 0.5 mg-albuterol 3 mg 3 ml inhalation Q8H PRN 01/19/23 07/14/23 (2.5 mg base)/3 mL nebulization soln empagliflozin 25 mg tablet 25 mg PO QAM #90 tabs 01/21/23 07/14/23 insulin glargine 100 unit/mL (3 68 unit (0.68 mL) subcut BID #60 mL 01/21/23 07/14/23 mL) subcutaneous pen (Lantus Solostar U-100 Insulin) fluticasone fur. 100 mcg-umeclid 1 inh inhalation DAILY 06/15/23 07/14/23 62.5 mcg-vilant 25 mcg inhalat.powder (Trelegy Ellipta) lidocaine 4 % topical patch 1 patch topical DAILY 06/15/23 07/14/23 (Lidocaine Pain Relief) Previous Rx's Medication Instructions Recorded insulin syringe needleless 1 mL #120 SYRGS 04/10/18 (BD Insulin Syringe Slip Tip) pen needle, diabetic 30 gauge x ##300 04/10/18 5/ (Pen Needle) blood-glucose meter #1 ea 11/14/18 blood sugar diagnostic (Blood #400 ea 11/29/18 Glucose Test strips) lancets 28 gauge #400 ea 11/29/18 empagliflozin 25 mg tablet 25 mg PO QAM #90 tabs 01/21/23 insulin glargine 100 unit/mL (3 68 unit (0.68 mL) subcut BID #60 mL 01/21/23 mL) subcutaneous pen (Lantus Solostar U-100 Insulin) Allergies Allergy/AdvReac Type Severity Reaction Status Date / Time No Known Allergies Allergy Verified 06/15/23 09:48 Review of Systems All systems reviewed & are unremarkable except as noted in HPI and below PFSH All Active Problems (Updated 07/21/23 @ 16:03 by SHERI Forte) Acute hypoxemic respiratory failure (Acute) Chronic heart failure with preserved ejection fraction (Acute) Chronic pain (Chronic) Leg edema (Acute) Advanced care planning/counseling discussion (Acute) Acute on chronic heart failure with preserved ejection fraction (HFpEF) (Acute) Chronic kidney disease (Chronic) Total avulsion of nail plate (Acute) Onycholysis (Acute) Fall (Acute) Contusion of left hip (Acute) Abrasion of right knee (Acute) 2+ pitting edema (Acute) Fluid overload, unspecified (Acute) Mixed conductive and sensorineural hearing loss, unspecified (Acute) Otosclerosis of both ears (Acute) Diaphoresis (Acute) Pneumonia (Acute) CAP (community acquired pneumonia) (Acute) Encounter for competency evaluation (Acute) Periprosthetic hip fracture (Acute) Left hip Acute pain of left hip (Acute) Hypokalemia (Acute) Atherosclerotic peripheral vascular disease of extremity (Acute) UTI (urinary tract infection) (Acute) Charcot's joint, left ankle and foot (Acute ~04/2019) Hypomagnesemia (Acute) Uncontrolled diabetes mellitus (Acute) Fungal dermatitis (Acute) Cellulitis of breast (Acute) Cataract (Acute) Cellulitis of lower extremity (Acute 10/31/14) Closed fracture of ankle (Acute) History of Achilles tendon repair (Acute) History of surgical procedure (Acute) Hypothyroidism (Chronic 01/09/13) Perforation of intestine (Acute) Vitamin D deficiency (Chronic 05/07/15) Type 2 diabetes mellitus with diabetic neuropathy (Chronic 05/13/15) SEEN ENDOCRINE AT [facility] [place] Transient ischemic attack (Chronic) Sensorineural hearing loss, bilateral (Chronic 05/24/17) Sciatica (Chronic) right; xray from 02/10 showed scattered spondylosis ant L4-5 on the left and mid lumbar scoliosis convex to the right Pulmonary hypertension (Chronic 04/13/17) Polycythemia (Chronic 03/08/17) Otosclerosis (Chronic 10/14/14) Osteoarthritis (Chronic) right shoulder AC-DJD, Glenohumoral jt. 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) Essential hypertension (Chronic 06/22/13) Elev transaminase/LDH (Chronic 01/09/13) Depressive disorder (Chronic) Cellulitis of leg (Chronic 10/31/14) Cataract (Chronic) mild; Fine [place] in macula-OD S/P SURGERY Amputated toe (Chronic) GANGRENOUS 2ND AND 3RD RIGHT TOES 11/14/17 Displaced bimalleolar fracture of right ankle (Chronic 05/29/14) Morbid obesity (Chronic) Hyperlipidemia (Chronic) Hypertension (Chronic) Depression (Chronic) Hypothyroidism (Chronic) Restless legs syndrome (Chronic) Sleep apnea with use of continuous positive airway pressure (CPAP) (Chronic) Venous stasis (Chronic) History of tobacco use (Chronic) a. quit in 1995 after approximately 30 pack years H/O fracture of ankle (Chronic) s. Left ankle 2011 Insomnia (Chronic) Hearing loss (Chronic) Left knee DJD (Chronic) DJD of shoulder (Chronic) a. on right Arthritis (Chronic) Toe gangrene (Chronic) Atrial fibrillation (Chronic) Pulmonary hypertension due to sleep-disordered breathing (Chronic) Amputated toe of right foot (Chronic) Medical History Abnormal PFTs Amputated toe of right foot Bilateral lower leg cellulitis (05/29/14) a. right worse than left Contusion Facial paralysis Fluid overload Palliative care encounter Pulmonary fibrosis Surgical History Amputation RIGHT SECOND AND THIRD TOES DUE TO DIABETIC ULCERS WITH CELLULITIS;11/14/17 DR. MAI Colonoscopy - MAC (~2003) Extraction of cataract 04/15/17 DR. ARRIETA; LEFT EYE 04/29/17 DR. ARRIETA; RIGHT EYE PROCEDURES REPAIR OF INTESTINE NEC puncture during colonoscopy ACHILLOTENOTOMY L Achilles tendon repair Family History Mother Neoplasm LUNG Father Heart disease Brother Heart disease Sister No problems noted. Grandfather Heart disease Grandfather Heart disease Grandmother Diabetes Grandmother Diabetes Sister No problems noted. Sister No problems noted. Sister Diabetes Sister No problems noted. Brother No problems noted. Brother No problems noted. Social History Smoking/Tobacco Use Status: Former Tobacco Use Smoking risk assessment performed?: Yes Alcohol Intake: never Drug use: Never Substance use type: does not use current occupation: [employer] Current gender identity: female Do you feel safe at home: Yes Do you feel safe in your relationship?: Yes Exam Narrative Exam Narrative: GENERAL APPEARANCE: Well-nourished, non-toxic, awake and alert, atraumatic, no acute distress. SKIN: Warm, pink, dry, intact, without rashes/lesions/ulcerations. HEAD: Normocephalic, atraumatic, normal hair distribution for gender/age. EYES: Pupils PERRLA, EOMs intact without nystagmus, normal conjunctiva, no exudates on lids/lashes. ENT: Nares patent, no circumoral cyanosis, no facial swelling NECK: Supple, trachea midline, painless cervical ROM. LUNGS/CHEST: Lungs - rales at bases, labored respirations, normal A/P diameter, symmetrical expansion, no chest wall deformity HEART (CV/PV): Regular rate and rhythm without murmur, no peripheral edema, no JVD. ABDOMEN: Soft, non-distended, no guarding, no tenderness. MSK: Normal ROM, no swelling/deformity to bilateral UEs or LEs, moving all extremities without weakness, no cyanosis, spine midline without tenderness, normal curvature. NEURO: Mental Status AAOx4 - alert to person, place, time, events No facial droop, no forehead involvement. Motor: No focal weakness - strength 5/5 in bilateral UEs and LEs, proximal and distal, symmetric. Sensory: sensation intact to light touch globally. Gait NT. PSYCH: euthymic, cooperative, pleasant, appropriate speech Course Vital Signs Vital signs: Vital Signs Temperature 37 C 07/21/23 10:55 Pulse 67 07/21/23 10:55 Respiratory Rate 20 07/21/23 10:55 Blood Pressure 142/61 H 07/21/23 10:55 Pulse Oximetry 96 07/21/23 10:55 Temperature 37 C 07/21/23 10:55 Temperature Source Temporal Artery Scan 07/21/23 10:55 Pulse 67 07/21/23 10:55 Respiratory Rate 20 07/21/23 10:55 Blood Pressure 142/61 H 07/21/23 10:55 Blood Pressure Position Sitting 07/21/23 10:55 Pulse Oximetry 96 07/21/23 10:55 Oxygen Delivery Method Room Air 07/21/23 10:55 Oxygen Flow Rate 0 07/21/23 10:55 Medical Decision Making This dictation utilizes [id number] dictation software and may contain unedited grammatical errors. 72 y/o F presents to ED today with a chief complaint of shortness of breath, was hypoxic at facility 88% RA, states has a head cold/congested, history of CHF, and feels weak with any standing- had a fall while here in ED. [ ]. Patients' medical history: Amputated toe of right foot, fibrosis, CHF, CKD, acquired pneumonia, t2DM, TIA. Family and social history: lives at [facility]. Pertinent exam findings / vital signs include L knee and lumbar back pain after fall here in ED, coarse lungs with rales at bases, labored respirations, afebrile, neuro baseline. Differential / pathologies of concern include CHF, pneumonia, knee fracture, vertebral fracture back from fall here in the department, debility, viral syndrome, acute hypoxemic respiratory failure. Diagnostic studies of: -CBC, CMP, Lipase, Mg++, BNP, Trop I, CRP, EKG, XR Chest - *Added XR L knee, XR Lumbar spine. -CBC shows WBCs 10.8 -VBG pH - 7.45, compensated -mild hyponatremia 134 -baseline SCr, BUN -BNP 1200, possible CHF -XR Chest shows no pulmonary edema Interventions of: -1 DuoNeb. ED Course/Assessment/Plan: Patient with history of significant CHF not on home O2, no history of COPD presents with hypoxia at home, has been weak on her feet and did suffer a fall while transitioning to commode in department with negative x-ray of her lumbar back and knee which she possibly injured in the fall. She has no severe increase in pitting edema of lower extremities and a fairly benign chest x-ray consistent with priors, mild elevation of BNP otherwise no sign of severe CHF. She is signed out to oncoming provider Oksana Lopez with ambulatory road test pending, if she desaturates during ambulation she likely needs admission for acute hypoxemic respiratory failure but otherwise may be discharged home with her upper respiratory viral syndrome. Findings not consistent with severe CHF. Disposition of Acute Hypoxemic Respiratory Failure. Patient verbalized understanding of the plan and return to ED criteria and engaged in shared decision making. Medical Records Medical records reviewed: Yes I reviewed the patient's medical records. Imaging Data Radiologic Study: Imaging: X-Ray Radiologist's impression: EXAM: XR CHEST 2V PA LATERAL CLINICAL HISTORY: shortness of breath. TECHNIQUE: 2D digital imaging was performed. COMPARISON: CR XR PORTABLE CHEST AP from 10/08/[address] CHEST WO from 10/28/2022 CR XR CHEST 2V PA LATERAL from 06/15/2023 FINDINGS: 2 views: Heart size is normal. The mediastinum is not widened. Increased interstitial patchy markings noted throughout both lung gaming but with minimal if any significant change compared to prior chest radiographs of September 2022 and 06/15/2023. No pleural effusions. No pneumothorax. No obvious fractures. IMPRESSION: As above. If clinically indicated CT scan may be performed for added sensitivity/specificity. Radiologic Study #2: Imaging: X-Ray Radiologist's impression: EXAM: XR KNEE LT 3V AP,LAT,SAIDA CLINICAL HISTORY: fall in ED, L knee pain. TECHNIQUE: 2D digital imaging was performed. COMPARISON: CR XR KNEE RT 4V AP,LAT,SAIDA,PAT from 03/06/2021 FINDINGS: 3 views No evidence of acute fracture. Small joint effusion noted. No joint space narrowing. Mild degenerative changes but no joint space narrowing in the medial lateral compartments. No osseous lesions. IMPRESSION: No acute fractures evident. Small joint effusion. Radiologic Study #3: Radiologist's impression: EXAM: XR LUMBAR SPINE AP, LAT CLINICAL HISTORY: fall in ED, LBP. TECHNIQUE: 2D digital imaging was performed. COMPARISON: CR XR LUMBAR SPINE COMPLETE from 03/06/2021 CR XR ABDOMEN FLAT UPRIGHT from 10/14/2022 FINDINGS: 3 views Again noted is scoliosis convex right, unchanged. Also multilevel disc space narrowing. Wedge compression fracture of L3 is unchanged from 2020. Mild wedging of L1 noted which was also previously present. Left hip prosthesis noted. Healed fracture of the right 10th rib noted IMPRESSION: As above but no obvious new fractures of the lumbar vertebrae.. Lab Data Lab results reviewed: Yes I reviewed the patient's lab results. Labs: Laboratory Tests Range/Units 07/21/23 07/21/23 07/21/23 11:15 11:30 14:17 WBC (4.4-10.8) 10^3/uL 10.89 H RBC (3.93-5.22) 10^6/uL 5.44 H Hgb (11.2-15.7) g/dL 15.8 H Hct (36.0-46.0) % 49.3 H MCV (80-95) fL 91 MCH (27.0-33.0) pg 29.0 MCHC (32.0-36.0) % 32.0 RDW (11.7-14.6) % 15.5 H Plt Count (130-400) 10^3/uL 228 MPV (8.0-11.0) fL 10.5 Immature Gran % 0.6 Neutrophils % 69.1 Lymphocytes % 20.7 Monocytes % 7.8 Eosinophils % 1.2 Basophils % 0.6 Nucleated RBC % (0.0-0.3) % 0.0 Absolute Neutrophils (1.2-6.7) 10^3/uL 7.52 H Absolute Lymphocytes (1.2-3.4) 10^3/uL 2.25 Absolute Monocytes (0.1-0.8) 10^3/uL 0.85 H Absolute Eosinophils (0.0-0.7) 10^3/uL 0.13 Absolute Basophils (0.0-0.2) 10^3/uL 0.07 VBG pH (7.31-7.41) 7.45 H VBG pCO2 (41-51) mmHg 41 VBG pO2 mmHg 49 VBG HCO3 (23-28) mmol/L 28 VBG Total CO2 (24-29) mmol/L 25 VBG O2 Saturation % 84 VBG Base Excess (-2-3) mmol/L 4 H Sodium (136-145) mmol/L 134 L Potassium (3.5-5.1) mmol/L 3.8 Chloride (98-107) mmol/L 98 Carbon Dioxide (21.0-32.0) mmol/L 27.8 Anion Gap (3-11) mmol/L 8.2 BUN (7-18) mg/dL 37 H Creatinine (0.55-1.02) mg/dL 1.5 H Est GFR (CKD-EPI 2020) (mL/min/1.73m2) 37.26 Glucose (74-106) mg/dL 272 H Calcium (8.5-10.1) mg/dL 9.3 Magnesium (1.8-2.4) mg/dL 2.0 Total Bilirubin (0.2-1.0) mg/dL 0.8 AST (15-37) U/L 25 ALT (14-59) U/L 25 Alkaline Phosphatase (46-116) U/L 140 H Troponin I (< or =60) ng/L < 50 < 50 C-Reactive Protein (0.0-0.3) mg/dL 1.12 H NT-Pro-B Natriuret Pep (<300) pg/mL 1268 H Total Protein (6.4-8.2) g/dL 7.9 Albumin (3.4-5.0) g/dL 3.5 Lipase (16-77) U/L 21 Urine Color (Yellow) Yellow Urine Clarity (Clear) Clear Urine pH (5-8) 7.0 Ur Specific [place] (1.005-1.025) 1.015 Urine Protein (Negative) mg/dL Negative Urine Ketones (Negative) mg/dL Negative Urine Blood (Negative) Negative Urine Nitrite (Negative) Negative Urine Bilirubin (Negative) Negative Urine Urobilinogen (Up to 0.2) mg/dL 0.2 Ur Leukocyte Esterase (Negative) Negative Urine Glucose (Negative) mg/dL >=1000 H COVID-19 Source Nasopharynx SARS-CoV-2 (PCR) (Negative) Negative Influenza Type A (PCR) (Negative) Negative Influenza Type B (PCR) (Negative) Negative RSV (PCR) (Negative) Negative Quality:SDOH Health Related Social Needs: No Data to Display Discharge Plan Discharge Details Chief Complaint: RespSymp Clinical Impression: Acute hypoxemic respiratory failure Primary Care Provider: Unknown,Unknown ED Provider: Remy Webber Home Meds and New Rx's Prescriptions: No Action (DME) blood-glucose meter misc See Dose Instructions .ROUTE .MEDSUPPLY Qty: 1 0RF Dose Instruction: As directed Rx Instructions: As directed. AC and HS E11.9 Accucheck isi (DME) lancets 28 gauge misc 1 ea Miscellaneous TID & PRN Qty: 400 12RF Rx Instructions: FOR accucheck Isi METER. PT USES INSULIN. Ac andhs E11.65/Z79.4 (DME) Blood Glucose Test strip See Dose Instructions .ROUTE .MEDSUPPLY Qty: 400 5RF Dose Instruction: AC and HS Rx Instructions: AC and HS E11.21 vitamin B complex [Vitamins B Complex] Tablet 1 tab PO DAILY nitroglycerin 0.4 mg tablet, sublingual 0.4 mg sublingual Q5M PRN Rx Instructions: do not exceed 3 doses per episode polyethylene glycol 3350 [Miralax] 17 gram/dose powder 17 g PO .every other day PRN duloxetine 20 mg capsule, delayed rel sprinkle 20 mg PO DAILY torsemide 20 mg tablet 80 mg PO DAILY spironolactone 25 mg tablet 25 mg PO DAILY ipratropium-albuterol 0.5 mg-3 mg(2.5 mg base)/3 mL solution for nebulization 3 ml inhalation Q8H PRN insulin glargine [Lantus Solostar U-100 Insulin] 100 unit/mL (3 mL) insulin pen 68 unit SUBCUT BID Qty: 60 5RF empagliflozin 25 mg tablet 25 mg PO QAM Qty: 90 4RF (DME) insulin syringe needleless [BD Insulin Syringe Slip Tip] 1 mL syringe 1 ea Miscellaneous BID Qty: 120 12RF Rx Instructions: E11.65 (DME) pen needle, diabetic [Pen Needle] 30 gauge x 5/16 needle 1 ea Miscellaneous QID Qty: 300 6RF Rx Instructions: ultra fine [id number]; E11.65 AC and HS docusate sodium 100 mg capsule 100 mg PO QHS levothyroxine 75 mcg capsule 75 mcg PO HS ropinirole 3 mg tablet 2 mg PO QHS Patient Comments: Now taking 4 mg Rx Instructions: administer 1-3 hours before bedtime metoprolol succinate 50 mg Tablet Extended Release 24 Hr 50 mg PO DAILY bisacodyl [Dulcolax (bisacodyl)] 10 mg Suppository 10 mg NM PRN PRN fluticasone propionate [Flonase Allergy Relief] 50 mcg/actuation [place],Suspension 2 spray INTRANASAL BID insulin lispro [Humalog U-100 Insulin] 100 unit/mL solution 25 unit subcut AC Patient Comments: hold if BS < 100 Trelegy Ellipta 100-62.5-25 mcg Blister With Device 1 inh INHALATION DAILY magnesium oxide 400 mg magnesium Tablet 400 mg PO DAILY Trelegy Ellipta 100-62.5-25 mcg blister with device 1 inh inhalation DAILY lidocaine [Lidocaine Pain Relief] 4 % adhesive patch,medicated 1 patch topical DAILY Rx Instructions: may leave on for up to 12 hrs calcium carbonate-vitamin D3 [Calcium 600 + D(3)] 600 mg(1,500mg) -400 unit Tablet 1 tab PO BID acetaminophen [Tylenol] 325 MG tablet 650 mg PO BID PRN Eliquis 5 mg tablet 5 mg PO BID benzonatate 100 mg Capsule 100 mg PO BID omeprazole 20 mg Capsule,Delayed Release(Dr/Ec) 20 mg PO DAILY atorvastatin 40 mg Tablet 40 mg PO DAILY Lactobacillus acidophilus Tablet 1 tab PO DAILY
[2023-07-21 11:21] LABS: BE (Venous) 4 mmol/L (-2-3); HCO3 (Venous) 28 mmol/L (23-28); O2 Sat (Venous) 84 %; TCO2 (Venous) 25 mmol/L (24-29); pCO2 (Venous) 41 mmHg (41-51); pH (Venous) 7.45 (7.31-7.41); pO2 (Venous) 49 mmHg
[2023-07-21 11:22] LABS: Abs Immature Grans 0.06 10^3/uL (0.0-0.06); Absolute Eosinophil Count 0.13 10^3/uL (0.0-0.7); Absolute Lymphocyte Count 2.25 10^3/uL (1.2-3.4); Absolute Monocyte Count 0.85 10^3/uL (0.1-0.8); Basophils % 0.6; Eosinophils % 1.2; HCT 49.3 % (36.0-46.0); HGB 15.8 g/dL (11.2-15.7); Immature Grans % 0.6; Lymphocytes % 20.7; MCV 91 fL (80-95); MPV 10.5 fL (8.0-11.0); Monocytes % 7.8; Neutrophils % 69.1; Platelet Count 228 10^3/uL (130-400); RBC 5.44 10^6/uL (3.93-5.22); RDW 15.5 % (11.7-14.6); RDW-SD 50.5 fL; WBC 10.89 10^3/uL (4.4-10.8)
[2023-07-21 11:23] LABS: Absolute Basophil Count 0.07 10^3/uL (0.0-0.2); Absolute Neutrophil Count 7.52 10^3/uL (1.2-6.7)
[2023-07-21] MEDS: Albuterol/Ipratropium 3 ML UPD VIAL UPD (11:28)
[2023-07-21 11:42] LABS: Bilirubin Negative (Negative); Blood Negative (Negative); Clarity Clear (Clear); Glucose >=1000 mg/dL (Negative); Ketones Negative (Negative); Leukocyte Esterase Negative (Negative); Nitrite Negative (Negative); Specific Gravity 1.015 (1.005-1.025); Urobilinogen 0.2 mg/dL (Up to 0.2)
[2023-07-21 11:49] LABS: ALT 25 U/L (14-59); AST 25 U/L (15-37); Albumin 3.5 g/dL (3.4-5.0); Alkaline Phosphatase 140 U/L (46-116); Anion Gap 8.2 mmol/L (3-11); BUN 37 mg/dL (7-18); Bilirubin, Total 0.8 mg/dL (0.2-1.0); C-Reactive Protein 1.12 mg/dL (0.0-0.3); CO2 27.8 mmol/L (21.0-32.0); CREATININE 1.5 mg/dL (0.55-1.02); Calcium 9.3 mg/dL (8.5-10.1); Chloride 98 mmol/L (98-107); Estimated GFR 37.26 (mL/min/1.73m2); Glucose 272 mg/dL (74-106); Lipase 21 U/L (16-77); NT-proBNP 1268 pg/mL (<300); Potassium 3.8 mmol/L (3.5-5.1); Sodium 134 mmol/L (136-145); Total Protein 7.9 g/dL (6.4-8.2); Troponin I < 50 ng/L (< or =60)
[2023-07-21 12:04] LABS: COVID-19 PCR Negative (Negative); Influenza A PCR Negative (Negative); Influenza B PCR Negative (Negative); RSV PCR Negative (Negative)
[2023-07-21 12:17] LABS: Source Nasopharynx
--- NOTE | 2023-07-21 13:00 | DI.RAD_ITS ---
Exam(s) XR LUMBAR SPINE AP, LAT EXAM: XR LUMBAR SPINE AP, LAT CLINICAL HISTORY: fall in ED, LBP. TECHNIQUE: 2D digital imaging was performed. COMPARISON: CR XR LUMBAR SPINE COMPLETE from 03/06/2021 CR XR ABDOMEN FLAT UPRIGHT from 10/14/2022 FINDINGS: 3 views Again noted is scoliosis convex right, unchanged. Also multilevel disc space narrowing. Wedge compr ession fracture of L3 is unchanged from 2020. Mild wedging of L1 noted which was also previously pre sent. Left hip prosthesis noted. Healed fracture of the right 10th rib noted IMPRESSION: As above but no obvious new fractures of the lumbar vertebrae.. DATA REPOSITORY: RADIATION DOSE DELIVERED:
--- NOTE | 2023-07-21 13:00 | DI.RAD_ITS ---
Exam(s) XR KNEE LT 3V AP,LAT,SAIDA EXAM: XR KNEE LT 3V AP,LAT,SAIDA CLINICAL HISTORY: fall in ED, L knee pain. TECHNIQUE: 2D digital imaging was performed. COMPARISON: CR XR KNEE RT 4V AP,LAT,SAIDA,PAT from 03/06/2021 FINDINGS: 3 views No evidence of acute fracture. Small joint effusion noted. No joint space narrowing. Mild degenera tive changes but no joint space narrowing in the medial lateral compartments. No osseous lesions. IMPRESSION: No acute fractures evident. Small joint effusion. DATA REPOSITORY: RADIATION DOSE DELIVERED:
[2023-07-21 14:40] LABS: Troponin I < 50 ng/L (< or =60)
--- NOTE | 2023-07-21 16:11 | ED.PROG_ITS ---
Date of service: 07/21/23 Time of Service: 16:12 Medical Decision Making Care assumed from provider (SHERI Umaña) Please see their initial HPI, PE, and documentation. Discussed patient details and case and pending workup and disposition. At the time of signout awaiting road test and room air trial and possible admission if failed road test on room air patient was brought in by EMS for productive cough for the last week does have a history of CHF bronchitis with chronic cough. O2 sat was 88% on room air per triage note was placed on 2 L nasal cannula. She was given a DuoNeb here in the department. 1633: On patient reevaluation she is pleasant alert and oriented x 4, states that her shortness of breath is at her baseline, speaking in full sentences. Informed by technical staff engineer that she is 94% on room air. They are trialing ambulation. Patient reports that she mostly gets around via wheelchair due to the diuretics that she is on and or a walker. She normally can walk around 70 steps with a walker. 1642: Patient maintaining O2 sat of 94% with ambulation. Will plan on transporting patient back to the [facility] and discharging. Patient discharged with EMS back to the [facility]. This text was generated using [employer] dictation system, please disregard any oddities of phrase or misspellings. Medical Records Medical records reviewed: Yes I reviewed the patient's medical records. Lab Data Lab results reviewed: Yes I reviewed the patient's lab results. Labs: Laboratory Tests Range/Units 07/21/23 07/21/23 07/21/23 11:15 11:30 14:17 WBC (4.4-10.8) 10^3/uL 10.89 H RBC (3.93-5.22) 10^6/uL 5.44 H Hgb (11.2-15.7) g/dL 15.8 H Hct (36.0-46.0) % 49.3 H MCV (80-95) fL 91 MCH (27.0-33.0) pg 29.0 MCHC (32.0-36.0) % 32.0 RDW (11.7-14.6) % 15.5 H Plt Count (130-400) 10^3/uL 228 MPV (8.0-11.0) fL 10.5 Immature Gran % 0.6 Neutrophils % 69.1 Lymphocytes % 20.7 Monocytes % 7.8 Eosinophils % 1.2 Basophils % 0.6 Nucleated RBC % (0.0-0.3) % 0.0 Absolute Neutrophils (1.2-6.7) 10^3/uL 7.52 H Absolute Lymphocytes (1.2-3.4) 10^3/uL 2.25 Absolute Monocytes (0.1-0.8) 10^3/uL 0.85 H Absolute Eosinophils (0.0-0.7) 10^3/uL 0.13 Absolute Basophils (0.0-0.2) 10^3/uL 0.07 VBG pH (7.31-7.41) 7.45 H VBG pCO2 (41-51) mmHg 41 VBG pO2 mmHg 49 VBG HCO3 (23-28) mmol/L 28 VBG Total CO2 (24-29) mmol/L 25 VBG O2 Saturation % 84 VBG Base Excess (-2-3) mmol/L 4 H Sodium (136-145) mmol/L 134 L Potassium (3.5-5.1) mmol/L 3.8 Chloride (98-107) mmol/L 98 Carbon Dioxide (21.0-32.0) mmol/L 27.8 Anion Gap (3-11) mmol/L 8.2 BUN (7-18) mg/dL 37 H Creatinine (0.55-1.02) mg/dL 1.5 H Est GFR (CKD-EPI 2020) (mL/min/1.73m2) 37.26 Glucose (74-106) mg/dL 272 H Calcium (8.5-10.1) mg/dL 9.3 Magnesium (1.8-2.4) mg/dL 2.0 Total Bilirubin (0.2-1.0) mg/dL 0.8 AST (15-37) U/L 25 ALT (14-59) U/L 25 Alkaline Phosphatase (46-116) U/L 140 H Troponin I (< or =60) ng/L < 50 < 50 C-Reactive Protein (0.0-0.3) mg/dL 1.12 H NT-Pro-B Natriuret Pep (<300) pg/mL 1268 H Total Protein (6.4-8.2) g/dL 7.9 Albumin (3.4-5.0) g/dL 3.5 Lipase (16-77) U/L 21 Urine Color (Yellow) Yellow Urine Clarity (Clear) Clear Urine pH (5-8) 7.0 Ur Specific Lockhart (1.005-1.025) 1.015 Urine Protein (Negative) mg/dL Negative Urine Ketones (Negative) mg/dL Negative Urine Blood (Negative) Negative Urine Nitrite (Negative) Negative Urine Bilirubin (Negative) Negative Urine Urobilinogen (Up to 0.2) mg/dL 0.2 Ur Leukocyte Esterase (Negative) Negative Urine Glucose (Negative) mg/dL >=1000 H COVID-19 Source Nasopharynx SARS-CoV-2 (PCR) (Negative) Negative Influenza Type A (PCR) (Negative) Negative Influenza Type B (PCR) (Negative) Negative RSV (PCR) (Negative) Negative Quality:SDOH Health Related Social Needs: No Data to Display Exam Const General: cooperative Nutritional Appearance: obese Orientation: alert, awake and oriented x3 Sign Out Sign Out Data: Sign Out Comment: pending ambulatory SpO2 for acute hypoxemic respiratory failure. neg covid/flu. no focal PNA history of CHF without significant pulmonary edema- patient did fall in department with negative knee and lumbar XRs Last updated by Remy Webber PA at 07/21/23 16:04 Discharge Plan Disposition Patient Disposition: Home Condition: Improving Discharge Details Clinical Impression: Acute hypoxemic respiratory failure Primary Care Provider: Unknown,Unknown ED Provider: Jia Read Meds and New Rx's Prescriptions: No Action (DME) blood-glucose meter misc See Dose Instructions .ROUTE .MEDSUPPLY Qty: 1 0RF Dose Instruction: As directed Rx Instructions: As directed. AC and HS E11.9 Accucheck isi (DME) lancets 28 gauge misc 1 ea Miscellaneous TID & PRN Qty: 400 12RF Rx Instructions: FOR accucheck Isi METER. PT USES INSULIN. Ac andhs E11.65/Z79.4 (DME) Blood Glucose Test strip See Dose Instructions .ROUTE .MEDSUPPLY Qty: 400 5RF Dose Instruction: AC and HS Rx Instructions: AC and HS E11.21 vitamin B complex [Vitamins B Complex] Tablet 1 tab PO DAILY nitroglycerin 0.4 mg tablet, sublingual 0.4 mg sublingual Q5M PRN Rx Instructions: do not exceed 3 doses per episode polyethylene glycol 3350 [Miralax] 17 gram/dose powder 17 g PO .every other day PRN duloxetine 20 mg capsule, delayed rel sprinkle 20 mg PO DAILY torsemide 20 mg tablet 80 mg PO DAILY spironolactone 25 mg tablet 25 mg PO DAILY ipratropium-albuterol 0.5 mg-3 mg(2.5 mg base)/3 mL solution for nebulization 3 ml inhalation Q8H PRN insulin glargine [Lantus Solostar U-100 Insulin] 100 unit/mL (3 mL) insulin pen 68 unit SUBCUT BID Qty: 60 5RF empagliflozin 25 mg tablet 25 mg PO QAM Qty: 90 4RF (DME) insulin syringe needleless [BD Insulin Syringe Slip Tip] 1 mL syringe 1 ea Miscellaneous BID Qty: 120 12RF Rx Instructions: E11.65 (DME) pen needle, diabetic [Pen Needle] 30 gauge x 5/16 needle 1 ea Miscellaneous QID Qty: 300 6RF Rx Instructions: ultra fine [id number]; E11.65 AC and HS docusate sodium 100 mg capsule 100 mg PO QHS levothyroxine 75 mcg capsule 75 mcg PO HS ropinirole 3 mg tablet 2 mg PO QHS Patient Comments: Now taking 4 mg Rx Instructions: administer 1-3 hours before bedtime metoprolol succinate 50 mg Tablet Extended Release 24 Hr 50 mg PO DAILY bisacodyl [Dulcolax (bisacodyl)] 10 mg Suppository 10 mg AR PRN PRN fluticasone propionate [Flonase Allergy Relief] 50 mcg/actuation Beggs,Suspension 2 spray INTRANASAL BID insulin lispro [Humalog U-100 Insulin] 100 unit/mL solution 25 unit subcut AC Patient Comments: hold if BS < 100 Trelegy Ellipta 100-62.5-25 mcg Blister With Device 1 inh INHALATION DAILY magnesium oxide 400 mg magnesium Tablet 400 mg PO DAILY Trelegy Ellipta 100-62.5-25 mcg blister with device 1 inh inhalation DAILY lidocaine [Lidocaine Pain Relief] 4 % adhesive patch,medicated 1 patch topical DAILY Rx Instructions: may leave on for up to 12 hrs calcium carbonate-vitamin D3 [Calcium 600 + D(3)] 600 mg(1,500mg) -400 unit Tablet 1 tab PO BID acetaminophen [Tylenol] 325 MG tablet 650 mg PO BID PRN Eliquis 5 mg tablet 5 mg PO BID benzonatate 100 mg Capsule 100 mg PO BID omeprazole 20 mg Capsule,Delayed Release(Dr/Ec) 20 mg PO DAILY atorvastatin 40 mg Tablet 40 mg PO DAILY Lactobacillus acidophilus Tablet 1 tab PO DAILY Discharge Instructions Instructions: Dyspnea (ED) Additional Instructions: After 1 DuoNeb your oxygen is now maintaining at 94% on room air even with exertion. You did require supplemental oxygen for short period of time. Please take your medications as previously prescribed and as scheduled. Your lab work was largely at baseline for you. No evidence of acute fractures or pneumonia on x-ray. Follow up with primary care provider in 3-5 days. Return to ED sooner if any worsening or concerns. Please take Tylenol with food every 4-6 hours as needed for pain and swelling. Referrals: [facility] [Outside] - 1 day Discharge Data Discharge Date/Time-TO BE ENTERED AT DEPARTURE: 07/21/23 17:28
== END 2023-07-21 17:28 | disposition home or self-care (01) ==
PROVIDERS: Physician Assistant; Emergency Provider Registered Nurse Emergency
DX: J96.01 Acute respiratory failure with hypoxia (principal); I48.91 Unspecified atrial fibrillation; I11.0 Hypertensive heart disease with heart failure; I50.33 Acute on chronic diastolic (congestive) heart failure; E11.40 Type 2 diabetes mellitus with diabetic neuropathy, unspecified; Z79.01 Long term (current) use of anticoagulants; Z79.4 Long term (current) use of insulin; Z87.891 Personal history of nicotine dependence
CPT/HCPCS: 00123; 36415; 73562; 80053; 82805; 83690; 87637; 93005; 94640; 99284; 71046; 72100; 81003; 83735; 83880; 84484; 85025; 86140; 93010; J7620

== ENCOUNTER 2023-08-08 17:37 | Outpatient (REF) | payer MEDICARE, MEDICAID, SELFPAY ==
[2023-08-08 19:29] LABS: ALT 22 U/L (14-59); AST 21 U/L (15-37); Albumin 3.2 g/dL (3.4-5.0); Alkaline Phosphatase 146 U/L (46-116); Anion Gap 11.9 mmol/L (3-11); BUN 31 mg/dL (7-18); Bilirubin, Total 0.8 mg/dL (0.2-1.0); CO2 27.1 mmol/L (21.0-32.0); CREATININE 1.5 mg/dL (0.55-1.02); Calcium 8.9 mg/dL (8.5-10.1); Chloride 102 mmol/L (98-107); Estimated GFR 37.26 (mL/min/1.73m2); Glucose 263 mg/dL (74-106); NT-proBNP 2371 pg/mL (<300); Potassium 3.7 mmol/L (3.5-5.1); Sodium 141 mmol/L (136-145); Total Protein 6.7 g/dL (6.4-8.2)
== END 2023-08-08 17:38 | disposition home or self-care (01) ==
LOC: LBO 17:37
PROVIDERS: Visit Provider Nurse Practitioner Gerontology
DX: I11.0 Hypertensive heart disease with heart failure (principal)
CPT/HCPCS: 80053; 83880

== ENCOUNTER → 2023-08-22 12:40 | Outpatient (BNVA) | payer MEDICARE, MEDICAID, SELFPAY | PROVIDERS: Visit Provider Physician Assistant Surgical | DX: J84.9 Interstitial pulmonary disease, unspecified (principal); I27.20 Pulmonary hypertension, unspecified; G47.30 Sleep apnea, unspecified; Z87.891 Personal history of nicotine dependence | CPT/HCPCS: 99214 ==

== ENCOUNTER 2023-08-22 14:56 | Outpatient (REF) | payer MEDICARE, MEDICAID, SELFPAY ==
[2023-08-22 16:35] LABS: ALT 26 U/L (14-59); AST 23 U/L (15-37); Albumin 3.5 g/dL (3.4-5.0); Alkaline Phosphatase 182 U/L (46-116); Anion Gap 9.4 mmol/L (3-11); BUN 43 mg/dL (7-18); Bilirubin, Total 0.7 mg/dL (0.2-1.0); CO2 26.6 mmol/L (21.0-32.0); CREATININE 1.9 mg/dL (0.55-1.02); Calcium 9.3 mg/dL (8.5-10.1); Chloride 98 mmol/L (98-107); Estimated GFR 28.06 (mL/min/1.73m2); Glucose 231 mg/dL (74-106); NT-proBNP 1942 pg/mL (<300); Potassium 4.8 mmol/L (3.5-5.1); Sodium 134 mmol/L (136-145); Total Protein 7.6 g/dL (6.4-8.2)
== END 2023-08-22 14:57 | disposition home or self-care (01) ==
LOC: LBN 14:56
PROVIDERS: Visit Provider Nurse Practitioner Gerontology
DX: I50.89 Other heart failure (principal); E83.42 Hypomagnesemia; G89.4 Chronic pain syndrome
CPT/HCPCS: 80053; 83880

== ENCOUNTER 2023-09-27 17:58 | Outpatient (REF) | payer MEDICARE, MEDICAID, SELFPAY ==
[2023-09-27 17:04] LABS: Abs Immature Grans 0.02 10^3/uL (0.0-0.06); Absolute Basophil Count 0.09 10^3/uL (0.0-0.2); Absolute Eosinophil Count 0.15 10^3/uL (0.0-0.7); Absolute Lymphocyte Count 2.26 10^3/uL (1.2-3.4); Absolute Monocyte Count 0.91 10^3/uL (0.1-0.8); Absolute Neutrophil Count 6.43 10^3/uL (1.2-6.7); Basophils % 0.9; Eosinophils % 1.5; HCT 51.3 % (36.0-46.0); HGB 16.5 g/dL (11.2-15.7); Immature Grans % 0.2; Lymphocytes % 22.9; MCH 29.9 pg (27.0-33.0); MCHC 32.2 % (32.0-36.0); MCV 93 fL (80-95); MPV 10.8 fL (8.0-11.0); Monocytes % 9.2; Neutrophils % 65.3; Platelet Count 249 10^3/uL (130-400); RBC 5.51 10^6/uL (3.93-5.22); RDW 14.6 % (11.7-14.6); RDW-SD 50.6 fL; WBC 9.86 10^3/uL (4.4-10.8)
[2023-09-27 17:20] LABS: ALT 30 U/L (14-59); AST 28 U/L (15-37); Albumin 3.7 g/dL (3.4-5.0); Alkaline Phosphatase 160 U/L (46-116); Anion Gap 11.3 mmol/L (3-11); BUN 53 mg/dL (7-18); Bilirubin, Total 0.7 mg/dL (0.2-1.0); CO2 26.7 mmol/L (21.0-32.0); CREATININE 1.8 mg/dL (0.55-1.02); Chloride 98 mmol/L (98-107); Estimated GFR 29.75 (mL/min/1.73m2); Glucose 158 mg/dL (74-106); Magnesium 2.4 mg/dL (1.8-2.4); PHOSPHORUS 4.3 mg/dL (2.6-4.7); Potassium 4.4 mmol/L (3.5-5.1); Sodium 136 mmol/L (136-145); Total Protein 7.4 g/dL (6.4-8.2); Uric Acid 10.9 mg/dL (2.6-6.0)
[2023-09-27 17:33] LABS: Vitamin D 25 Total 27.5 ng/mL (30-100)
[2023-09-27 17:49] LABS: Hemoglobin A1C 8.2 % (<5.7)
[2023-09-27 18:34] LABS: C & S Indicated? Yes; WBC >50 HPF (0-5)
[2023-09-27 18:35] LABS: COMMENT (LAB VIEW ONLY) 17.77 mg/dL; PROTEIN 9.3 mg/dL (0.0-11.9); Prot/Crea Ur Ratio 0.45
[2023-09-27 18:38] LABS: COMMENT (LAB VIEW ONLY) 16.73 mg/dL; Microalb ug/mg Crea 141.1 ug/mg Cr
[2023-09-27 19:21] LABS: Bilirubin Negative (Negative); Blood Trace-intact (Negative); Clarity Sl Cloudy (Clear); Glucose 500 mg/dL (Negative); Ketones Negative (Negative); Leukocyte Esterase Large (Negative); Nitrite Negative (Negative); Specific Gravity 1.015 (1.005-1.025); Urobilinogen 0.2 mg/dL (Up to 0.2); pH 6.5 (5-8)
[2023-09-28 18:13] LABS: Parathyroid Hormone,Intact 133 pg/mL (19-88)
== END 2023-09-27 17:59 | disposition home or self-care (01) ==
LOC: LBN 17:58
PROVIDERS: Visit Provider Nurse Practitioner Gerontology
DX: E11.65 Type 2 diabetes mellitus with hyperglycemia (principal); E03.8 Other specified hypothyroidism; E83.42 Hypomagnesemia; D51.9 Vitamin B12 deficiency anemia, unspecified; N18.30 Chronic kidney disease, stage 3 unspecified; E78.49 Other hyperlipidemia; R82.998 Other abnormal findings in urine; I50.33 Acute on chronic diastolic (congestive) heart failure
CPT/HCPCS: 80053; 82306; 87077; 81003; 81015; 82043; 82565; 82570; 83036; 83735; 83970; 84100; 84156; 84443; 84550; 85025; 87086; 87186

== ENCOUNTER 2023-10-18 17:53 | Outpatient (REF) | payer MEDICARE, MEDICAID, SELFPAY ==
[2023-10-18 18:21] LABS: ALT 29 U/L (14-59); AST 24 U/L (15-37); Albumin 3.6 g/dL (3.4-5.0); Alkaline Phosphatase 157 U/L (46-116); Anion Gap 10.8 mmol/L (3-11); BUN 53 mg/dL (7-18); Bilirubin, Total 0.6 mg/dL (0.2-1.0); CO2 26.2 mmol/L (21.0-32.0); CREATININE 1.8 mg/dL (0.55-1.02); Chloride 100 mmol/L (98-107); Estimated GFR 29.75 (mL/min/1.73m2); Glucose 215 mg/dL (74-106); Potassium 4.9 mmol/L (3.5-5.1); Sodium 137 mmol/L (136-145); Total Protein 7.2 g/dL (6.4-8.2)
== END 2023-10-18 17:54 | disposition home or self-care (01) ==
LOC: LBN 17:53
PROVIDERS: Visit Provider Nurse Practitioner Gerontology
DX: N18.4 Chronic kidney disease, stage 4 (severe) (principal); I50.33 Acute on chronic diastolic (congestive) heart failure
CPT/HCPCS: 80053

== ENCOUNTER → 2023-11-18 09:35 | Outpatient (BNVA) | payer MEDICARE, MEDICAID, SELFPAY | PROVIDERS: Visit Provider Internal Medicine Cardiovascular Disease | DX: I48.20 Chronic atrial fibrillation, unspecified (principal); I27.29 Other secondary pulmonary hypertension; G47.8 Other sleep disorders; I50.32 Chronic diastolic (congestive) heart failure | CPT/HCPCS: 99213 ==

== ENCOUNTER 2023-11-21 17:43 | Outpatient (REF) | payer MEDICARE, MEDICAID, SELFPAY ==
[2023-11-21 17:32] LABS: Abs Immature Grans 0.04 10^3/uL (0.0-0.06); Absolute Basophil Count 0.07 10^3/uL (0.0-0.2); Absolute Eosinophil Count 0.18 10^3/uL (0.0-0.7); Absolute Lymphocyte Count 1.66 10^3/uL (1.2-3.4); Absolute Monocyte Count 0.83 10^3/uL (0.1-0.8); Absolute Neutrophil Count 7.86 10^3/uL (1.2-6.7); Basophils % 0.7 %; Eosinophils % 1.7 %; HCT 50.6 % (36.0-46.0); HGB 16.1 g/dL (11.2-15.7); Immature Grans % 0.4 %; Lymphocytes % 15.6 %; MCH 30.1 pg (27.0-33.0); MCHC 31.8 % (32.0-36.0); MCV 95 fL (80-95); MPV 10.4 fL (8.0-11.0); Monocytes % 7.8 %; Neutrophils % 73.8 %; Platelet Count 261 10^3/uL (130-400); RBC 5.34 10^6/uL (3.93-5.22); RDW-SD 51.8 fL; WBC 10.64 10^3/uL (4.4-10.8)
[2023-11-21 18:00] LABS: ALT 35 U/L (14-59); AST 25 U/L (15-37); Albumin 3.7 g/dL (3.4-5.0); Alkaline Phosphatase 131 U/L (46-116); Anion Gap 13.2 mmol/L (3-11); BUN 63 mg/dL (7-18); Bilirubin, Total 0.8 mg/dL (0.2-1.0); CO2 25.8 mmol/L (21.0-32.0); CREATININE 1.8 mg/dL (0.55-1.02); Calcium 8.9 mg/dL (8.5-10.1); Chloride 96 mmol/L (98-107); Estimated GFR 29.75 (mL/min/1.73m2); Glucose 253 mg/dL (74-106); NT-proBNP 1899 pg/mL (<300); Potassium 4.7 mmol/L (3.5-5.1); Sodium 135 mmol/L (136-145); Total Protein 7.6 g/dL (6.4-8.2)
== END 2023-11-21 17:44 | disposition home or self-care (01) ==
LOC: LBN 17:43
PROVIDERS: Visit Provider Nurse Practitioner Gerontology
DX: I50.33 Acute on chronic diastolic (congestive) heart failure (principal); D64.9 Anemia, unspecified; N18.4 Chronic kidney disease, stage 4 (severe); I48.20 Chronic atrial fibrillation, unspecified
CPT/HCPCS: 80053; 83880; 85025

== ENCOUNTER → 2023-11-22 12:59 | Outpatient (BNVA) | payer MEDICARE, MEDICAID, SELFPAY | PROVIDERS: Visit Provider Physician Assistant Surgical | DX: J84.9 Interstitial pulmonary disease, unspecified (principal); I27.20 Pulmonary hypertension, unspecified; G47.30 Sleep apnea, unspecified; Z87.891 Personal history of nicotine dependence | CPT/HCPCS: 99214 ==

== ENCOUNTER → 2023-12-20 03:23 | Outpatient (CLI) | payer MEDICARE, MEDICAID, SELFPAY ==
--- NOTE | 2023-12-20 07:00 | DI.US_ITS ---
APPROVED REPORT EXAM: Comprehensive 2D, Doppler, and color-flow Echocardiogram Patient Location: Out-Patient Outpatient Coding Specialist: Nguyen López RDCS (AE) Indications: Pulmonary HTN Other Information Study Quality: Fair. Technically limited study due to body habitus, inability to position patient exa m done supine. Conclusion Technically very difficult study Mild concentric left ventricular hypertrophy. Ejection fraction is 55%. Wall motion appears normal Normal right ventricular size and function Both atria are borderline dilated There are no structural valvular abnormalities Right ventricular systolic pressure could not be estimated Wall motion Left Ventricle The left ventricle is normal size. The overall left ventricular systolic function appears normal. Mil d concentric left ventricular hypertrophy. Regional wall motion is grossly normal. LVEF is 55%. Right Ventricle Right ventricle is grossly normal in size. Right ventricular systolic function is grossly normal. Atria Left atrium is borderline dilated. Right atrium is borderline dilated. Aortic Valve The aortic valve is normal in structure. Aortic valve is trileaflet. There is no aortic valvular sten osis. No aortic regurgitation is present. Mitral Valve The mitral valve is normal in structure. No evidence of mitral valve stenosis. Mild mitral regurgita tion. Tricuspid Valve The tricuspid valve is normal in structure. There is no tricuspid valve stenosis. Trace tricuspid reg urgitation. Unable to assess PA pressure. Pulmonic Valve The pulmonary valve is normal in structure. There is no pulmonic valvular stenosis. Trace pulmonic re gurgitation. Great Vessels The aortic root is normal in size. The ascending aorta is normal Technically limited subcostal imagin g. IVC not visualized. Pericardium Technically limited subcostal imaging. 2D Dimensions IVSD d PLAX 1.22 cm F: 0.6-1.0 Ao Root d 3.00 cm F: 2.7 - 3.3 LVPW d PLAX 1.21 cm F: 0.6 - 1.0 Ao Asc Diam d 3.24 cm F: 2.3 - 3.1 LVID d PLAX 4.48 cm F: 3.8 - 5.2 LVDs 3.20 cm F: 2.2 - 3.5 LV EF Teichholz 55.0 % FS 28.43 % LV EDV (Teich) 91.3 mL LV ESV (Teich) 41.1 mL LA Volume LA Length A4C 6.0 cm LA Length A2C 6.3 cm LA Area A4C s 21.04 cm2 LA Area A2C s 22.29 cm2 LA Vol A4C A-L 62.29 mL LA Vol A2C A-L 66.80 mL LA Vol Biplane A-L 66.0 mL LA Vol/BSA A4C A-L LA Vol/BSA A2C A-L LA Vol/BSA BP A-L 34.7 mL/m2 LA Vol A4C MOD 59.4 mL LA Vol A2C MOD 63.1 mL LA Vol BP MOD 62.6 mL RA Volume RA Area A4C 17.9 cm2 RA ESV A4C (A-L) 46.0mL RA Vol/BSA A4C A-L RA Length A4C 5.9 cm RA ESV A4C (MOD) 43.8mL LV Diastology MV E' lateral 0.102 (>0.1 m/s) MV E Vmax 0.84 (0.4-1.3 m/s) MV E/E' LAT 8.23 (<14) Aortic Valve AoV Vmax 1.15 m/s LVOT Vmax 0.71 m/s AoV Peak Grad 5.3 mmHg LVOT Peak Grad 2.0 mmHg AoV Area (Vmax) 1.86 cm2 LVOT VTI 0.112 m AoV VTI 0.242 m LVOT Mean Grad 1.2 mmHg AoV Mean Castillo. 0.78 m/s LVOT SV 33.83 mL AoV Mean Grad 2.7 mmHg LVOT Diam s 1.95 cm AoV Area (VTI) 1.40 cm2 Velocity Ratio 0.62 Mitral Valve MV DT 235 (160-240 msec) MV Vmax TIPS 0.85 m/s MV Mean Grad 0.8 (<2mmHg) MV VTI 0.186 m Pulmonary Valve PV Vmax 1.15 (0.5-1.5 m/s) RVOT Vmax 1.00 m/s PV Peak Grad 5.3 mmHg RVOT Peak Gr. 4.0 mmHg PV Mean Castillo 0.80 m/s RVOT VTI 0.207 m PV Mean Grad 2.9 mmHg RVOT Mean Gr. 2.0 mmHg
== END ==
PROVIDERS: Visit Provider Physician Assistant Surgical
DX: I27.20 Pulmonary hypertension, unspecified (principal)
CPT/HCPCS: 93306

== ENCOUNTER 2024-01-09 18:04 | Outpatient (REF) | payer MEDICARE, MEDICAID, SELFPAY ==
[2024-01-09 19:10] LABS: ALT 28 U/L (14-59); AST 29 U/L (15-37); Albumin 3.8 g/dL (3.4-5.0); Alkaline Phosphatase 132 U/L (46-116); Anion Gap 11.4 mmol/L (3-11); BUN 65 mg/dL (7-18); Bilirubin, Total 0.84 mg/dL (0.2-1.0); CO2 25.6 mmol/L (21.0-32.0); CREATININE 2.1 mg/dL (0.55-1.02); Calcium 9.5 mg/dL (8.5-10.1); Chloride 94 mmol/L (98-107); Estimated GFR 24.73 (mL/min/1.73m2); Glucose 292 mg/dL (74-106); Potassium 4.8 mmol/L (3.5-5.1); Sodium 131 mmol/L (136-145); Total Protein 7.7 g/dL (6.4-8.2)
== END 2024-01-09 18:05 | disposition home or self-care (01) ==
LOC: LBN 18:04
PROVIDERS: Visit Provider Nurse Practitioner Gerontology
DX: Z51.81 Encounter for therapeutic drug level monitoring (principal); D45 Polycythemia vera; H28 Cataract in diseases classified elsewhere; R68.89 Other general symptoms and signs
CPT/HCPCS: 80053

== ENCOUNTER 2024-01-23 17:52 | Outpatient (REF) | payer MEDICARE, MEDICAID, SELFPAY ==
[2024-01-23 17:57] LABS: Iron 79 ug/dL (50-170); Total Iron Binding Capacity 364 ug/dL (250-450); Transferrin Sat 22 % (15-50)
[2024-01-23 18:10] LABS: PROTEIN 9.7 mg/dL; Prot/Crea Ur Ratio 0.34
[2024-01-23 18:13] LABS: COMMENT (LAB VIEW ONLY) 28.32 mg/dL; Microalb ug/mg Crea 74.5 ug/mg Cr
[2024-01-23 18:18] LABS: Bilirubin Negative (Negative); Blood Trace-intact (Negative); Clarity Sl Cloudy (Clear); Glucose 500 mg/dL (Negative); Ketones Negative (Negative); Leukocyte Esterase Moderate (Negative); Nitrite Negative (Negative); Specific Gravity 1.015 (1.005-1.025); Urobilinogen 0.2 mg/dL (Up to 0.2)
[2024-01-23 18:19] LABS: Anion Gap 11.8 mmol/L (3-11); BUN 65 mg/dL (7-18); CO2 25.2 mmol/L (21.0-32.0); Chloride 96 mmol/L (98-107); Estimated GFR 26.22 (mL/min/1.73m2); Glucose 230 mg/dL (74-106); Potassium 5.2 mmol/L (3.5-5.1); Sodium 133 mmol/L (136-145); Vitamin D 25 Total 40.4 ng/mL (30-100)
[2024-01-23 18:21] LABS: Ferritin 61 ng/mL (8-252)
[2024-01-23 18:29] LABS: Bacteria Many HPF (Negative); C & S Indicated? Yes; Crystals Negative HPF (Negative); Epithelial Cells Rare HPF (Negative); Mucus Negative (Negative); RBC 0-2 HPF (0-2); WBC 20-50 HPF (0-5)
[2024-01-23 18:30] LABS: Uric Acid 10.3 mg/dL (2.6-6.0)
== END 2024-01-23 17:53 | disposition home or self-care (01) ==
LOC: LBN 17:52
PROVIDERS: Visit Provider Nurse Practitioner Family
DX: E11.69 Type 2 diabetes mellitus with other specified complication (principal); I10 Essential (primary) hypertension; N18.32 Chronic kidney disease, stage 3b
CPT/HCPCS: 80048; 82306; 87077; 81003; 81015; 82043; 82565; 82570; 82728; 83540; 83550; 84156; 84550; 87086; 87186

== ENCOUNTER → 2024-01-26 11:41 | Outpatient (BNVA) | payer MEDICARE, MEDICAID, SELFPAY | PROVIDERS: Visit Provider Podiatrist | DX: I70.203 Unspecified atherosclerosis of native arteries of extremities, bilateral legs (principal); I87.2 Venous insufficiency (chronic) (peripheral); R60.9 Edema, unspecified; E11.42 Type 2 diabetes mellitus with diabetic polyneuropathy; Z79.4 Long term (current) use of insulin; Z89.421 Acquired absence of other right toe(s); B35.1 Tinea unguium | CPT/HCPCS: 11721 ==

== ENCOUNTER 2024-02-27 19:55 | Outpatient (REF) | payer MEDICARE, MEDICAID, SELFPAY ==
[2024-02-27 18:39] LABS: ALT 26 U/L (14-59); AST 25 U/L (15-37); Albumin 3.6 g/dL (3.4-5.0); Alkaline Phosphatase 114 U/L (46-116); Anion Gap 13.5 mmol/L (3-11); BUN 50 mg/dL (7-18); Bilirubin, Total 0.89 mg/dL (0.2-1.0); CO2 22.5 mmol/L (21.0-32.0); Calcium 9.2 mg/dL (8.5-10.1); Chloride 96 mmol/L (98-107); Estimated GFR 26.22 (mL/min/1.73m2); Glucose 233 mg/dL (74-106); Potassium 4.8 mmol/L (3.5-5.1); Sodium 132 mmol/L (136-145); Total Protein 7.4 g/dL (6.4-8.2)
[2024-02-27 19:08] LABS: Hemoglobin A1C 7.5 % (<5.7)
== END 2024-02-27 19:56 | disposition home or self-care (01) ==
LOC: LBN 19:55
PROVIDERS: Referring Provider Nurse Practitioner Gerontology; Visit Provider Nurse Practitioner Gerontology
DX: E08.3 Diabetes mellitus due to underlying condition with ophthalmic complications (principal); I50.33 Acute on chronic diastolic (congestive) heart failure
CPT/HCPCS: 80053; 83036

== ENCOUNTER → 2024-02-29 13:17 | Outpatient (BNVA) | payer MEDICARE, MEDICAID, SELFPAY | PROVIDERS: Visit Provider Podiatrist | DX: I70.203 Unspecified atherosclerosis of native arteries of extremities, bilateral legs (principal); E11.40 Type 2 diabetes mellitus with diabetic neuropathy, unspecified; Z79.4 Long term (current) use of insulin; I87.2 Venous insufficiency (chronic) (peripheral); R60.9 Edema, unspecified; Z89.421 Acquired absence of other right toe(s); B35.1 Tinea unguium; N18.9 Chronic kidney disease, unspecified | CPT/HCPCS: 11721 ==

== ENCOUNTER 2024-03-13 04:26 | Emergency (ER) | payer MEDICARE, MEDICAID, SELFPAY ==
[2024-03-13] VITALS (17 sets, daily range): BP systolic 99–117; BP diastolic 57–72; PULSE 59–74; RESP 11–19; TEMP 36.8; O2SAT 93–98
--- NOTE | 2024-03-13 04:15 | RT.EKG_ITS ---
APPROVED REPORT Exam: Resting ECG Reason for Exam: chest pain Patient Location: E HR:52 bpm ECG Measurements Heart Rate 52 AXIS ME [id number] P [id number] QRSd 102 QRS 32 QT 479 T 186 QTc 475 Conclusion Atrial fibrillation...? atrial activity Repol abnrm suggests ischemia, diffuse leads...ST-T neg, ant/lat/inf There are no significant changes compared to prior EKG performed on 07/21/2023 at 11:05.
--- NOTE | 2024-03-13 04:29 | ED.GENADUL_ITS ---
Discharge Plan Disposition Patient Disposition: Long Term Facility(SNF) Condition: Stable Discharge Details Clinical Impression: Chest pain Primary Care Provider: Unknown,Unknown ED Provider: Romel Murphy and Orlin Rx's Prescriptions: Continued (DME) blood-glucose meter misc See Dose Instructions .ROUTE .MEDSUPPLY Qty: 1 0RF Dose Instruction: As directed Rx Instructions: As directed. AC and HS E11.9 Accucheck isi (DME) lancets 28 gauge misc 1 ea Miscellaneous TID & PRN Qty: 400 12RF Rx Instructions: FOR accucheck Isi METER. PT USES INSULIN. Ac andhs E11.65/Z79.4 (DME) Blood Glucose Test strip See Dose Instructions .ROUTE .MEDSUPPLY Qty: 400 5RF Dose Instruction: AC and HS Rx Instructions: AC and HS E11.21 vitamin B complex [Vitamins B Complex] Tablet 1 tab PO Q OTHER DAY Jardiance 25 mg tablet 25 mg PO DAILY dextromethorphan-guaifenesin [Guaiasorb DM] 10-100 mg/5 mL liquid 10 ml PO Q4H PRN urea 40 % cream 1 applic topical DAILY Qty: 28.35 3RF Ozempic 0.25 mg or 0.5 mg (2 mg/3 mL) pen injector 0.5 mg subcut QWEEK Patient Comments: not on retirement list nitroglycerin 0.4 mg tablet, sublingual 0.4 mg sublingual Q5M PRN Rx Instructions: do not exceed 3 doses per episode polyethylene glycol 3350 [Miralax] 17 gram/dose powder 17 g PO DAILY duloxetine 20 mg capsule, delayed rel sprinkle 20 mg PO DAILY spironolactone 25 mg tablet 25 mg PO DAILY torsemide 20 mg tablet 60 mg PO DAILY ipratropium-albuterol 0.5 mg-3 mg(2.5 mg base)/3 mL solution for nebulization 3 ml inhalation Q8H PRN (Reason: shortness of breath or wheezing) (DME) insulin syringe needleless [BD Insulin Syringe Slip Tip] 1 mL syringe 1 ea Miscellaneous BID Qty: 120 12RF Rx Instructions: E11.65 (DME) pen needle, diabetic [Pen Needle] 30 gauge x 5/16 needle 1 ea Miscellaneous QID Qty: 300 6RF Rx Instructions: ultra fine [id number]; E11.65 AC and HS docusate sodium 100 mg capsule 100 mg PO QHS levothyroxine 75 mcg capsule 75 mcg PO HS ropinirole 3 mg tablet 2 mg PO BID metoprolol succinate 50 mg Tablet Extended Release 24 Hr 50 mg PO DAILY fluticasone propionate [Flonase Allergy Relief] 50 mcg/actuation [place],Suspension 2 spray INTRANASAL BID insulin lispro [Humalog U-100 Insulin] 100 unit/mL solution 2 - 12 unit subcut TID Patient Comments: hold if BS < 100 Rx Instructions: 201-250 = 2 units 251-300 = 4 units 301-350 = 6 units 351-400 = 8 units 401-450 = 10 units 451-500 = 12 units Trelegy Ellipta 100-62.5-25 mcg Blister With Device 1 inh INHALATION DAILY magnesium oxide 400 mg magnesium Tablet 400 mg PO DAILY calcium carbonate 300 mg (750 mg) tablet,chewable 300 mg PO QID PRN albuterol sulfate 90 mcg/actuation HFA aerosol inhaler 2 puff INHALATION Q6H PRN (Reason: shortness of breath or wheezing) Artificial Tears (PF) Dropperette 1 drp ophthalmic (eye) Q2H PRN lactulose 10 gram/15 mL solution 30 ml PO DAILY PRN (Reason: constipation) lidocaine [Lidoderm] 5 % adhesive patch,medicated 1 patch topical DAILY Rx Instructions: leave on most painful area for up to 12 hrs meclizine 25 mg tablet 25 mg PO DAILY PRN (Reason: dizziness) insulin glargine [Lantus Solostar U-100 Insulin] 100 unit/mL (3 mL) insulin pen 64 unit SUBCUT BID calcium carbonate-vitamin D3 [Calcium 600 + D(3)] 600 mg(1,500mg) -400 unit Tablet 1 tab PO BID acetaminophen [Tylenol] 325 mg tablet 1,000 mg PO TID Eliquis 5 mg tablet 5 mg PO BID benzonatate 100 mg Capsule 100 mg PO BID omeprazole 20 mg Capsule,Delayed Release(Dr/Ec) 20 mg PO DAILY Lactobacillus acidophilus Tablet 1 tab PO DAILY Discharge Instructions Instructions: Chest Pain, Adult ED Additional Instructions: You were seen for an episode of chest pain. Your ED evaluation including x-ray, EKG, laboratory studies are reassuring. Resume your previous medications and management. Follow-up with primary care. Return to ED for any new or worsening pain, shortness of breath, neurologic change, other concerns. HPI General Mode of arrival: EMS . Date/Time Provider Initiated Documentation: 03/13/24 04:29 . Limitations to Documentation: no limitations . Information obtained by: patient, EMS and RN notes reviewed . HPI Narrative: Patient presents to ED from [facility] by ambulance with chest pain. Patient reporting that she woke up to go use the bathroom. Noted at that time that she was having chest pain. She also felt short of breath. She received a DuoNeb treatment and a nitroglycerin while at the [facility]. EMS was activated. Patient received aspirin en route to the hospital. Patient reports that pain is minimal at this point. She also feels that her breathing is improved. She denies any recent fever. She has a chronic cough which she feels is unchanged. She denies any abdominal pain, nausea, vomiting, diarrhea. She has multiple medical problems including diabetes, hypertension, hyperlipidemia, congestive heart failure, pulmonary hypertension. Related Data Home Medications ?Medication ?Instructions ?Recorded ?Confirmed insulin syringe needleless 1 mL #120 SYRGS 04/10/18 02/29/24 (BD Insulin Syringe Slip Tip) pen needle, diabetic 30 gauge x ##300 04/10/18 02/29/2411/23 (Pen Needle) blood-glucose meter #1 ea 11/14/18 02/29/24 blood sugar diagnostic (Blood #400 ea 11/29/18 02/29/24 Glucose Test strips) lancets 28 gauge #400 ea 11/29/18 02/29/24 calcium carbonate 600 mg-vitamin 1 tab PO BID 08/26/20 03/13/24 D3 10 mcg (400 unit) tablet (Calcium 600 + D(3)) apixaban 5 mg tablet (Eliquis) 5 mg PO BID 10/07/20 03/13/24 benzonatate 100 mg capsule 100 mg PO BID 10/07/20 03/13/24 fluticasone propionate 50 2 spray intranasal BID 03/06/21 03/13/24 mcg/actuation nasal spray,suspension (Flonase Allergy Relief) metoprolol succinate 50 mg 50 mg PO DAILY 03/06/21 03/13/24 tablet,extended release 24 hr nitroglycerin 0.4 mg sublingual 0.4 mg sublingual Q5M PRN 02/23/22 03/13/24 tablet polyethylene glycol 3350 17 17 g PO DAILY 02/23/22 03/13/24 gram/dose oral powder (Miralax) Lactobacillus acidophilus 1 tab PO DAILY 04/22/22 03/13/24 omeprazole 20 mg capsule,delayed 20 mg PO DAILY 04/22/22 03/13/24 release vitamin B complex (Vitamins B 1 tab PO Q OTHER DAY 05/25/22 03/13/24 Complex tablet) fluticasone fur. 100 mcg-umeclid 1 inh inhalation DAILY 06/13/22 03/13/24 62.5 mcg-vilant 25 mcg inhalat.powder (Trelegy Ellipta) magnesium oxide 400 mg PO DAILY 06/13/22 03/13/24 docusate sodium 100 mg capsule 100 mg PO QHS 08/23/22 03/13/24 levothyroxine 75 mcg capsule 75 mcg PO HS 08/23/22 03/13/24 duloxetine 20 mg capsule,delayed 20 mg PO DAILY 11/09/22 03/13/24 release sprinkle insulin lispro 100 unit/mL 2 - 12 unit subcut TID 11/09/22 03/13/24 subcutaneous solution (Humalog U-100 Insulin) ropinirole 3 mg tablet 2 mg PO BID 11/09/22 03/13/24 spironolactone 25 mg tablet 25 mg PO DAILY 11/09/22 03/13/24 acetaminophen 325 mg tablet 1,000 mg PO TID 08/22/23 03/13/24 (Tylenol) dextromethorphan-guaifenesin 10 10 ml PO Q4H PRN 08/22/23 03/13/24 mg-100 mg/5 mL oral liquid (Guaiasorb DM) empagliflozin 25 mg tablet 25 mg PO DAILY 08/22/23 03/13/24 (Jardiance) ipratropium 0.5 mg-albuterol 3 mg 3 ml inhalation Q8H PRN shortness 08/22/23 03/13/24 (2.5 mg base)/3 mL nebulization of breath or wheezing soln torsemide 20 mg tablet 60 mg PO DAILY 08/22/23 03/13/24 urea 40 % topical cream 1 applic topical DAILY #28.35 grams 01/26/24 03/13/24 semaglutide 0.25 mg or 0.5 mg (2 0.5 mg subcut QWEEK 02/29/24 03/13/24 mg/3 mL) subcutaneous pen injector (Ozempic) albuterol sulfate 90 mcg/actuation 2 puff inhalation Q6H PRN 03/13/24 03/13/24 aerosol inhaler shortness of breath or wheezing calcium carbonate 300 mg PO QID PRN 03/13/24 03/13/24 dextran 70-hypromellose eye drops 1 drp ophthalmic (eye) Q2H PRN 03/13/24 03/13/24 in a dropperette (Artificial Tears (PF) drops in a dropperette) insulin glargine 100 unit/mL (3 64 unit subcut BID 03/13/24 03/13/24 mL) subcutaneous pen (Lantus Solostar U-100 Insulin) lactulose 10 gram/15 mL oral 30 ml PO DAILY PRN constipation 03/13/24 03/13/24 solution lidocaine 5 % topical patch 1 patch topical DAILY 03/13/24 03/13/24 (Lidoderm) meclizine 25 mg tablet 25 mg PO DAILY PRN dizziness 03/13/24 03/13/24 Previous Rx's ?Medication ?Instructions ?Recorded insulin syringe needleless 1 mL #120 SYRGS 04/10/18 (BD Insulin Syringe Slip Tip) pen needle, diabetic 30 gauge x ##300 04/10/1811/23 (Pen Needle) blood-glucose meter #1 ea 11/14/18 blood sugar diagnostic (Blood #400 ea 11/29/18 Glucose Test strips) lancets 28 gauge #400 ea 11/29/18 urea 40 % topical cream 1 applic topical DAILY #28.35 grams 01/26/24 Allergies Allergy/AdvReac Type Severity Reaction Status Date / Time No Known Allergies Allergy Verified 03/13/24 04:30 General Stated Complaint: Chest Pain JOLEEN: 3 Review of Systems Narrative: Per HPI Exam Narrative Exam Narrative: Const: Morbidly obese elderly female in NAD. VS per triage. HEENT: NC/AT. Normal facial exam. Neck: Supple. Trachea midline. Lungs: Normal respiratory effort. Lungs are clear. Cor: Irr/irr w/o murmur. Good radial pulses. GI: Soft/ND/NT. Neuro: A+O x 3. Cranial nerves II - XII grossly intact. No gross motor or sensory deficit. Ext: No C/C. Bilateral lower extremity edema. Course Vital Signs Vital signs: Vital Signs Temperature 98.2 F 03/13/24 04:24 Pulse 61 03/13/24 04:24 Respiratory Rate 16 03/13/24 04:24 Blood Pressure 99/57 L 03/13/24 04:24 Pulse Oximetry 96 03/13/24 04:24 Temperature 98.2 F 03/13/24 04:24 Temperature Source Temporal Artery Scan 03/13/24 04:24 Pulse 61 03/13/24 04:24 Respiratory Rate 16 03/13/24 04:24 Blood Pressure 99/57 L 03/13/24 04:24 Pulse Oximetry 96 03/13/24 04:24 Pain Level 5 03/13/24 04:24 Medical Decision Making Morbidly obese elderly female with multiple medical problems presenting to ED with complaint of chest pain and shortness of breath when she woke to go to the bathroom. Received DuoNeb and nitro at ECF and aspirin en route by EMS. Currently with no shortness of breath and minimal chest pain. Denies any recent illnesses. Denies any abdominal pain, nausea, vomiting. Has chronic lower extremity edema which is unchanged. Her EKG is a rate controlled A-fib with diffuse ST changes but unchanged from previous. IV is in place. Laboratory studies sent. Chest imaging per D-dimer result. Patient's laboratory studies with elevated hemoglobin consistent with her history of polycythemia. It is stable. White count is normal. Kidney function is also stable. D-dimer is negative. Initial troponin is negative. Chest x- ray was obtained and per my read shows chronic changes only no acute process. Patient without complaint of at this point and continues to do well. Will plan repeat troponin at 7:30 AM and likely discharge back to [facility]CF if negative. Medical Records Medical records reviewed: Yes I reviewed the patient's medical records. Medical records narrative: Palliative care and pulmonary notes Imaging Data Radiologic Study: Attestation: I personally reviewed and interpreted this imaging study as follows: Imaging: X-Ray My impression: Stable chest x-ray Lab Data Lab results reviewed: Yes I reviewed the patient's lab results. ECG Data Attestation: I personally reviewed and interpreted this ECG (s) as follows: Prior ECG tracings: available for review Interpretation: Unchanged from previous [facility] All Active Problems (Updated 03/13/24 @ 07:07 by Romel Murphy MD) Chest pain (Acute) Abnormal PFTs (Acute) Palliative care encounter (Acute) Onychomycosis (Acute) Venous insufficiency (Acute) Chronic pain (Chronic) Leg edema (Acute) Advanced care planning/counseling discussion (Acute) Onycholysis (Acute) Mixed conductive and sensorineural hearing loss, unspecified (Acute) Otosclerosis of both ears (Acute) Encounter for competency evaluation (Acute) Periprosthetic hip fracture (Acute) Left hip Charcot's joint, left ankle and foot (Acute ~04/2019) Closed fracture of ankle (Acute) Vitamin D deficiency (Chronic 05/07/15) Sciatica (Chronic) right; xray from 02/10 showed scattered spondylosis ant L4-5 on the left and mid lumbar scoliosis convex to the right Polycythemia (Chronic 03/08/17) Otosclerosis (Chronic 10/14/14) Osteoarthritis (Chronic) right shoulder AC-DJD, Glenohumoral jt. 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 quit in 1995 after approximately 30 pack years Insomnia (Chronic) Left knee DJD (Chronic) DJD of shoulder (Chronic) a. on right Arthritis (Chronic) Medical History Depression Atrial fibrillation Hyperlipidemia Morbid obesity Essential hypertension (06/22/13) Pulmonary hypertension (04/13/17) Transient ischemic attack Hypothyroidism (01/09/13) Type 2 diabetes mellitus with diabetic neuropathy (05/13/15) [place] [facility] [place] disease Chronic heart failure with preserved ejection fraction Atherosclerosis of artery of both lower extremities Pulmonary fibrosis Surgical History History of Achilles tendon repair Amputated toe of right foot PROCEDURES REPAIR OF INTESTINE NEC puncture during colonoscopy Colonoscopy - MAC (~2003) Extraction of cataract 04/15/17 DR. ARRIETA; LEFT EYE 04/29/17 DR. ARRIETA; RIGHT EYE Amputation RIGHT SECOND AND THIRD TOES DUE TO DIABETIC ULCERS WITH CELLULITIS;11/14/17 DR. MAI Family History Mother Neoplasm LUNG Father Heart disease Brother Heart disease Sister No problems noted. Grandfather Heart disease Grandfather Heart disease Grandmother Diabetes Grandmother Diabetes Sister No problems noted. Sister No problems noted. Sister Diabetes Sister No problems noted. Brother No problems noted. Brother No problems noted. 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
[2024-03-13 04:59] LABS: Abs Immature Grans 0.04 10^3/uL (0.0-0.06); Absolute Basophil Count 0.09 10^3/uL (0.0-0.2); Absolute Eosinophil Count 0.15 10^3/uL (0.0-0.7); Absolute Lymphocyte Count 2.17 10^3/uL (1.2-3.4); Absolute Monocyte Count 0.94 10^3/uL (0.1-0.8); Absolute Neutrophil Count 5.42 10^3/uL (1.2-6.7); Eosinophils % 1.7 %; Immature Grans % 0.5 %; Lymphocytes % 24.6 %; MCH 31.3 pg (27.0-33.0); MCHC 32.7 % (32.0-36.0); MCV 96 fL (80-95); MPV 10.4 fL (8.0-11.0); Monocytes % 10.7 %; Neutrophils % 61.5 %; Platelet Count 229 10^3/uL (130-400); RBC 5.72 10^6/uL (3.93-5.22); RDW 14.6 % (11.7-14.6); RDW-SD 52.3 fL; WBC 8.81 10^3/uL (4.4-10.8)
[2024-03-13 05:01] LABS: HCT 54.7 % (36.0-46.0); HGB 17.9 g/dL (11.2-15.7)
[2024-03-13 05:20] LABS: ALT 26 U/L (14-59); AST 28 U/L (15-37); Albumin 3.9 g/dL (3.4-5.0); Alkaline Phosphatase 133 U/L (46-116); Anion Gap 9.5 mmol/L (3-11); BUN 46 mg/dL (7-18); Bilirubin, Total 0.82 mg/dL (0.2-1.0); CO2 28.5 mmol/L (21.0-32.0); CREATININE 1.8 mg/dL (0.55-1.02); Calcium 9.8 mg/dL (8.5-10.1); Chloride 94 mmol/L (98-107); Estimated GFR 29.75 (mL/min/1.73m2); Glucose 185 mg/dL (74-106); Magnesium 2.5 mg/dL (1.8-2.4); Potassium 4.5 mmol/L (3.5-5.1); Sodium 132 mmol/L (136-145); Total Protein 8.5 g/dL (6.4-8.2); Troponin I < 50 ng/L (< or =60)
--- NOTE | 2024-03-13 05:30 | DI.RAD_ITS ---
Exam(s) XR CHEST 2V PA LATERAL EXAM: XR CHEST 2V PA LATERAL CLINICAL HISTORY: CP TECHNIQUE: 2D digital imaging was performed of the chest. Two images were obtained. PA and lateral views were obtained. COMPARISON: CR XR PORTABLE CHEST AP from 10/08/2022 CR XR CHEST 2V PA LATERAL from 07/21/2023 FINDINGS: MEDIASTINUM: Normal. HEART: Normal. PULMONARY VASCULATURE: Normal. LUNGS: No focal consolidating infiltrates are seen. There again seen scarring in the mid lungs bilat erally. There is increased density seen posteriorly on the lateral view overlying the 10th and 11th vertebral bodies. No correlate is seen on the frontal view. PLEURAL SPACE: No pleural effusion or pneumothorax. BONE:Within normal limits for the patient's age. There are marked degenerative changes seen in the s houlders, right greater than left. OTHER FINDINGS:Normal. IMPRESSION: Question increased opacity over the posterior lungs on the lateral view. This may represent an infil trate/mass or osseous abnormality. A CT scan of the chest is recommended for further evaluation. Unexpected findings DATA REPOSITORY: RADIATION DOSE DELIVERED:
[2024-03-13 05:35] LABS: D-Dimer 488 ng/mlFEU (<500)
--- NOTE | 2024-03-13 06:03 | TELEP.MEDR_ITS ---
Date of service: 03/13/24 Time of Service: 06:03 Telepharmacy Home Med Rec Allergies Allergies: No Known Allergies Allergy (Verified 03/13/24 04:30) Interview Person Interviewed: * [facility] med list Quality Quality of Interview/Accuracy of Medication List: Good Changes made to Home Medication List: ADDITIONS: * Artificial tears DELETIONS: * none CHANGES: * Ropinirole 2mg PO BID * Lantus insulin 64 Units SC BID Additional Notes Additional Notes: * Ozempic is not listed in [facility] med list Recommended Changes Recommended Changes(reason for recommendation): * none Attestation: The home medication list is now updated to the best of my knowledge and is ready to be reconciled by the provider. Please contact the [facility] Medication Reconciliation Pharmacist at for any questions.
--- NOTE | 2024-03-13 06:03 | TELEP.MEDREC ---
Date of service: 03/13/24 Time of Service: 06:03 Telepharmacy Home Med Rec Allergies Allergies: No Known Allergies Allergy (Verified 03/13/24 04:30) Interview Person Interviewed: [facility] med list Quality Quality of Interview/Accuracy of Medication List: Good Changes made to Home Medication List: ADDITIONS: Artificial tears DELETIONS: none CHANGES: Ropinirole 2mg PO BID Lantus insulin 64 Units SC BID Additional Notes Additional Notes: Ozempic is not listed in [facility] med list Recommended Changes Recommended Changes(reason for recommendation): none Attestation: The home medication list is now updated to the best of my knowledge and is ready to be reconciled by the provider. Please contact the Tele[facility]armacy Medication Reconciliation Pharmacist at for any questions.
--- NOTE | 2024-03-13 06:28 | DI.VRAD_ITS ---
PROCEDURE INFORMATION: Exam: XR Chest Exam date and time: 03/13/2024 5:55 AM Age: 73 years old Clinical indication: Other: Chest pain TECHNIQUE: Imaging protocol: Radiologic exam of the chest. Views: 2 views. COMPARISON: CR XR CHEST 2V PA LATERAL 07/21/2023 12:30 PM FINDINGS: Lungs: Chronic underlying interstitial lung disease. No lobar consolidation. No pleural effusion Pleural spaces: See Lungs finding. Heart/Mediastinum: Unremarkable. No cardiomegaly. Bones/joints: Unremarkable. IMPRESSION: Chronic changes. No acute process Dictated and Authenticated by: Donna Chaidez MD. Ordering:PARVIN Urena MD
[2024-03-13 08:02] LABS: Troponin I < 50 ng/L (< or =60)
== END 2024-03-13 08:46 | disposition skilled nursing facility (03) ==
PROVIDERS: Emergency Provider Emergency Medicine
DX: R07.9 Chest pain, unspecified (principal); R06.02 Shortness of breath; R94.2 Abnormal results of pulmonary function studies
CPT/HCPCS: 36415; 80053; 93005; 99283; 99284; 71046; 83735; 84484; 85025; 85379; 93010

== ENCOUNTER → 2024-03-19 11:01 | Outpatient (BNVA) | payer MEDICARE, MEDICAID, SELFPAY | PROVIDERS: Visit Provider Physician Assistant Surgical | DX: J84.9 Interstitial pulmonary disease, unspecified (principal); I27.20 Pulmonary hypertension, unspecified; G47.30 Sleep apnea, unspecified; Z87.891 Personal history of nicotine dependence | CPT/HCPCS: 99214 ==

== ENCOUNTER 2024-03-27 03:33 | Outpatient (CLI) | payer MEDICARE, MEDICAID, SELFPAY ==
[2024-03-27] MEDS: Levalbuterol HFA 15 GM INH 4 PUFF IH (08:58)
[2024-03-27] MEDS: Inhaler, Assist Device 1 EACH MC (08:59)
--- NOTE | 2024-03-27 12:09 | PFT_ITS ---
Date of service: 03/27/24 Time of Service: 07:57 Pulmonary Function Test Result Requesting Provider SHERI Zavala Indications: Autoimmune interstitial pneumonia, increased dyspnea, non-smoker x 40 years Interpretation Spirometry: Spirometry pre and postbronchodilator show: 1. No evidence of airway obstruction. The FEV1 was 87% predicted. 2. No response to bronchodilator 3. No evidence of restriction. 4. The mechanical manufacturing technician comments indicated a good patient effort. The test met ATS standards for spirometry. Lung Volumes: Lung volume studies by plethysmography showed: 1. Normal total lung capacity of 82% predicted. 2. No evidence of restriction or hyperinflation. IC, SVC, ERV were missing. Diffusion Capacity: Diffusing capacity by single breath carbon monoxide technique showed: 1. Moderately decreased gas exchange, which did not normalize when adjusted for lung volumes. DLCO was 58% (corrected) and DL/VA was 78% predicted. Impression Normal spirometry and lung volumes, but with mild to moderate gas exchange abnormality. Clinical and radiographic correlation are recommended. Follow-up in 6 months or if dyspnea worsens is recommended.
== END 2024-03-27 03:34 | disposition home or self-care (01) ==
LOC: RT 03:33
PROVIDERS: Visit Provider Physician Assistant Surgical
DX: J84.9 Interstitial pulmonary disease, unspecified (principal); R06.09 Other forms of dyspnea
CPT/HCPCS: 00123; 94060; 94726; 94729

== ENCOUNTER 2024-04-16 17:36 | Outpatient (REF) | payer MEDICARE, MEDICAID, SELFPAY ==
[2024-04-16 19:25] LABS: ALT 29 U/L (14-59); AST 26 U/L (15-37); Albumin 3.8 g/dL (3.4-5.0); Alkaline Phosphatase 129 U/L (46-116); Anion Gap 11.8 mmol/L (3-11); BUN 52 mg/dL (7-18); Bilirubin, Total 0.98 mg/dL (0.2-1.0); CO2 26.2 mmol/L (21.0-32.0); Calcium 9.6 mg/dL (8.5-10.1); Chloride 96 mmol/L (98-107); Estimated GFR 26.22 (mL/min/1.73m2); Glucose 291 mg/dL (74-106); Potassium 4.9 mmol/L (3.5-5.1); Sodium 134 mmol/L (136-145); Total Protein 7.8 g/dL (6.4-8.2)
== END 2024-04-16 17:37 | disposition home or self-care (01) ==
LOC: LBN 17:36
PROVIDERS: Visit Provider Internal Medicine
DX: I50.33 Acute on chronic diastolic (congestive) heart failure (principal); N18.4 Chronic kidney disease, stage 4 (severe); E83.42 Hypomagnesemia
CPT/HCPCS: 80053

== ENCOUNTER 2024-04-30 20:04 | Outpatient (REF) | payer MEDICARE, MEDICAID, SELFPAY ==
[2024-04-30 20:30] LABS: CREATININE 2.1 mg/dL (0.55-1.02); Estimated GFR 24.73 (mL/min/1.73m2)
== END 2024-04-30 20:05 | disposition home or self-care (01) ==
LOC: LBN 20:04
PROVIDERS: Visit Provider Physician Assistant Surgical
DX: R93.89 Abnormal findings on diagnostic imaging of other specified body structures (principal)
CPT/HCPCS: 82565

== ENCOUNTER 2024-05-01 01:01 | Outpatient (CLI) | payer MEDICARE, MEDICAID, SELFPAY ==
--- NOTE | 2024-05-01 08:00 | DI.CT_ITS ---
Exam(s) CT CHEST WO EXAM: CT CHEST WO CLINICAL HISTORY: mass ?, abnormal chest xray, R93.89. TECHNIQUE: Multi planar reconstructions were performed. CONTRAST MATERIAL: None COMPARISON: CT CT CHEST HIGH RESOLUTION from 07/02/[address] CHEST WO from 10/28/2022 CR,XR XR CHEST 2V PA LATERAL from 03/13/2024 FINDINGS: CHEST: LUNGS: There is persistent and slightly increased infiltrates in the right upper lobe left upper lobe as well as superior segment left lower. There is ground-glass infiltrate again noted bilaterally, s lightly increased. There are no pleural effusions. There is no distinct lung mass posteriorly to co rrespond to what is seen on recent lateral chest x-ray. MEDIASTINUM: There is no obvious hilar nor mediastinal adenopathy. No supraclavicular adenopathy. N o axillary adenopathy. CARDIAC: There is cardiomegaly again noted. No pericardial effusion. Coronary artery calcifications noted. The diameter of the ascending thoracic aorta is upper normal. VISUALIZED UPPER ABDOMEN:Calcification is again noted in the partially included adrenal glands. OSSEOUS: There is an AP orientated gap in the T10 vertebral body extending from the anterior cortex obliquely to the posterior cortex. This was previously present on CT scan of October 2022 and has slightly decre ased in size from that time. This is probably a partially healed fracture site. It was also evident on the CT scan of 07/02/2022 Healed posterior right 10th rib fracture noted as well as healed posterior fractures of left 9th and 10th ribs. No acute rib fractures identified.. IMPRESSION: 1. Increasing bilateral infiltrates, both patchy and ground-glass. No pleural effusions. No intrath oracic adenopathy. 2. Cardiomegaly again noted. No pericardial effusion. 3. Findings at T10 level which appears to be an incompletely healed posttraumatic T10 vertebral fract ure and a healed posterior fracture of the right 10th rib. There also healed fractures of the bobbin drier ior left 9th and 10th ribs. RADIATION DOSE DELIVERED: 579.62mGy.cm Total DLP DATA REPOSITORY: All CT scans at this facility are submitted to the National Radiology Data Registry (NRDR) Dose Index Registry (DIR) with the [employer] (A[employer]). RADIATION OPTIMIZATION: All CT scans at this facility use at least one of these dose optimization te chniques: automated exposure control; mA and/or kV adjustment per patient size (includes targeted exa ms where dose is matched to clinical indication); or iterative reconstruction.
== END 2024-05-01 01:21 ==
PROVIDERS: Visit Provider Physician Assistant Surgical
DX: S22.078A Other fracture of T9-T10 vertebra, initial encounter for closed fracture (principal); X58.XXXA Exposure to other specified factors, initial encounter
CPT/HCPCS: 71250

== ENCOUNTER 2024-06-14 10:10 | Outpatient (REF) | payer MEDICARE, MEDICAID, SELFPAY ==
[2024-06-14 13:30] LABS: ALT 36 U/L (14-59); AST 33 U/L (15-37); Albumin 3.8 g/dL (3.4-5.0); Alkaline Phosphatase 104 U/L (46-116); Anion Gap 12.2 mmol/L (3-11); BUN 44 mg/dL (7-18); Bilirubin, Total 1.33 mg/dL (0.2-1.0); CO2 26.8 mmol/L (21.0-32.0); CREATININE 1.8 mg/dL (0.55-1.02); Calcium 9.3 mg/dL (8.5-10.1); Chloride 99 mmol/L (98-107); Estimated GFR 29.75 (mL/min/1.73m2); Glucose 104 mg/dL (74-106); Potassium 4.1 mmol/L (3.5-5.1); Sodium 138 mmol/L (136-145); Total Protein 7.7 g/dL (6.4-8.2)
== END 2024-06-14 10:11 | disposition home or self-care (01) ==
LOC: LBN 10:10
PROVIDERS: Visit Provider Nurse Practitioner Gerontology
DX: D83.8 Other common variable immunodeficiencies (principal)
CPT/HCPCS: 80053

== ENCOUNTER 2024-06-18 16:22 | Outpatient (REF) | payer MEDICARE, MEDICAID, SELFPAY ==
[2024-06-18 19:37] LABS: Abs Immature Grans 0.06 10^3/uL (0.0-0.06); Absolute Basophil Count 0.07 10^3/uL (0.0-0.2); Absolute Eosinophil Count 0.08 10^3/uL (0.0-0.7); Absolute Lymphocyte Count 1.82 10^3/uL (1.2-3.4); Absolute Monocyte Count 0.86 10^3/uL (0.1-0.8); Absolute Neutrophil Count 8.92 10^3/uL (1.2-6.7); Basophils % 0.6 %; Eosinophils % 0.7 %; HCT 51.8 % (36.0-46.0); HGB 16.3 g/dL (11.2-15.7); Immature Grans % 0.5 %; Lymphocytes % 15.4 %; MCH 31.7 pg (27.0-33.0); MCHC 31.5 % (32.0-36.0); MCV 101 fL (80-95); MPV 10.9 fL (8.0-11.0); Monocytes % 7.3 %; Neutrophils % 75.5 %; Platelet Count 206 10^3/uL (130-400); RBC 5.14 10^6/uL (3.93-5.22); RDW 14.2 % (11.7-14.6); RDW-SD 53.5 fL; WBC 11.81 10^3/uL (4.4-10.8)
[2024-06-18 20:37] LABS: ALT 20 U/L (14-59); AST 24 U/L (15-37); Albumin 3.2 g/dL (3.4-5.0); Alkaline Phosphatase 95 U/L (46-116); Anion Gap 12.2 mmol/L (3-11); BUN 24 mg/dL (7-18); Bilirubin, Total 1.19 mg/dL (0.2-1.0); CO2 26.8 mmol/L (21.0-32.0); CREATININE 1.4 mg/dL (0.55-1.02); Calcium 8.7 mg/dL (8.5-10.1); Chloride 99 mmol/L (98-107); Estimated GFR 40.22 (mL/min/1.73m2); Glucose 197 mg/dL (74-106); Magnesium 2.1 mg/dL (1.8-2.4); Sodium 138 mmol/L (136-145); TSH (W/Ref FT4) 0.86 uIU/mL (0.36-3.74); Vitamin B12 1538 pg/mL (193-986)
[2024-06-21 11:37] LABS: Erythropoietin 17.9 mIU/mL (2.6 - 18.5)
== END 2024-06-18 16:23 | disposition home or self-care (01) ==
LOC: LBN 16:22
PROVIDERS: Visit Provider Nurse Practitioner Gerontology
DX: E03.8 Other specified hypothyroidism (principal); E83.42 Hypomagnesemia
CPT/HCPCS: 80053; 82668; 82607; 83735; 84443; 85025

== ENCOUNTER → 2024-06-20 10:58 | Outpatient (BNVA) | payer MEDICARE, MEDICAID, SELFPAY | PROVIDERS: Visit Provider Physician Assistant Surgical | DX: G47.30 Sleep apnea, unspecified (principal); Z87.891 Personal history of nicotine dependence | CPT/HCPCS: 36415; 99214 ==

== ENCOUNTER 2024-06-20 13:15 | Outpatient (REF) | payer MEDICARE, MEDICAID, SELFPAY ==
[2024-06-20 13:55] LABS: NT-proBNP 5675 pg/mL (<300)
== END 2024-06-20 13:16 | disposition home or self-care (01) ==
LOC: LBN 13:15
PROVIDERS: Visit Provider Physician Assistant Surgical
DX: I50.9 Heart failure, unspecified (principal)
CPT/HCPCS: 83880

== ENCOUNTER 2024-06-25 18:46 | Outpatient (REF) | payer MEDICARE, MEDICAID, SELFPAY ==
[2024-06-25 20:45] LABS: ALT 38 U/L (14-59); AST 24 U/L (15-37); Albumin 3.3 g/dL (3.4-5.0); Alkaline Phosphatase 105 U/L (46-116); Anion Gap 15.3 mmol/L (3-11); BUN 43 mg/dL (7-18); Bilirubin, Total 0.74 mg/dL (0.2-1.0); CO2 23.7 mmol/L (21.0-32.0); CREATININE 1.7 mg/dL (0.55-1.02); Calcium 8.9 mg/dL (8.5-10.1); Chloride 95 mmol/L (98-107); Estimated GFR 31.86 (mL/min/1.73m2); Glucose 291 mg/dL (74-106); NT-proBNP 4978 pg/mL (<300); Sodium 134 mmol/L (136-145); Total Protein 6.8 g/dL (6.4-8.2)
== END 2024-06-25 18:47 | disposition home or self-care (01) ==
LOC: LBN 18:46
PROVIDERS: Visit Provider Nurse Practitioner Gerontology
DX: N18.4 Chronic kidney disease, stage 4 (severe) (principal)
CPT/HCPCS: 80053; 83880

== ENCOUNTER → 2024-06-27 13:20 | Outpatient (BNVA) | payer MEDICARE, MEDICAID, SELFPAY | PROVIDERS: Visit Provider Podiatrist | DX: E11.8 Type 2 diabetes mellitus with unspecified complications (principal); I70.203 Unspecified atherosclerosis of native arteries of extremities, bilateral legs; I87.2 Venous insufficiency (chronic) (peripheral); R60.0 Localized edema; E11.40 Type 2 diabetes mellitus with diabetic neuropathy, unspecified; Z79.4 Long term (current) use of insulin; B35.1 Tinea unguium; L60.3 Nail dystrophy; Z89.421 Acquired absence of other right toe(s) | CPT/HCPCS: 11721 ==

== ENCOUNTER 2024-07-02 16:49 | Outpatient (REF) | payer MEDICARE, MEDICAID, SELFPAY ==
[2024-07-02 19:13] LABS: Abs Immature Grans 0.09 10^3/uL (0.0-0.06); Absolute Basophil Count 0.09 10^3/uL (0.0-0.2); Absolute Eosinophil Count 0.13 10^3/uL (0.0-0.7); Absolute Lymphocyte Count 1.65 10^3/uL (1.2-3.4); Absolute Monocyte Count 0.95 10^3/uL (0.1-0.8); Absolute Neutrophil Count 7.31 10^3/uL (1.2-6.7); Basophils % 0.9 %; Eosinophils % 1.3 %; HCT 50.6 % (36.0-46.0); HGB 17.1 g/dL (11.2-15.7); Immature Grans % 0.9 %; Lymphocytes % 16.1 %; MCH 32.1 pg (27.0-33.0); MCHC 33.8 % (32.0-36.0); MCV 95 fL (80-95); MPV 11.1 fL (8.0-11.0); Monocytes % 9.3 %; Neutrophils % 71.5 %; Platelet Count 253 10^3/uL (130-400); RBC 5.32 10^6/uL (3.93-5.22); RDW 14.2 % (11.7-14.6); RDW-SD 48.7 fL; WBC 10.22 10^3/uL (4.4-10.8)
[2024-07-02 19:39] LABS: ALT 32 U/L (14-59); AST 25 U/L (15-37); Albumin 3.8 g/dL (3.4-5.0); Alkaline Phosphatase 124 U/L (46-116); Anion Gap 9.9 mmol/L (3-11); BUN 50 mg/dL (7-18); CO2 28.1 mmol/L (21.0-32.0); Calcium 9.1 mg/dL (8.5-10.1); Chloride 96 mmol/L (98-107); Estimated GFR 26.22 (mL/min/1.73m2); Glucose 293 mg/dL (74-106); NT-proBNP 2682 pg/mL (<300); Potassium 4.7 mmol/L (3.5-5.1); Sodium 134 mmol/L (136-145); Total Protein 7.5 g/dL (6.4-8.2)
== END 2024-07-02 16:50 | disposition home or self-care (01) ==
LOC: LBN 16:49
PROVIDERS: Visit Provider Nurse Practitioner Gerontology
DX: I50.1 Left ventricular failure, unspecified (principal); E87.1 Hypo-osmolality and hyponatremia; D53.9 Nutritional anemia, unspecified
CPT/HCPCS: 80053; 83880; 85025

== ENCOUNTER 2024-07-23 17:38 | Outpatient (REF) | payer MEDICARE, MEDICAID, SELFPAY ==
[2024-07-23 18:36] LABS: ALT 15 U/L (14-59); AST 19 U/L (15-37); Albumin 3.8 g/dL (3.4-5.0); Alkaline Phosphatase 125 U/L (46-116); Anion Gap 13.5 mmol/L (3-11); BUN 69 mg/dL (7-18); Bilirubin, Total 0.94 mg/dL (0.2-1.0); CO2 23.5 mmol/L (21.0-32.0); CREATININE 2.1 mg/dL (0.55-1.02); Calcium 8.9 mg/dL (8.5-10.1); Chloride 91 mmol/L (98-107); Estimated GFR 24.73 (mL/min/1.73m2); Glucose 383 mg/dL (74-106); Potassium 4.7 mmol/L (3.5-5.1); Sodium 128 mmol/L (136-145); Total Protein 7.4 g/dL (6.4-8.2)
[2024-07-23 18:50] LABS: Hemoglobin A1C 8.9 % (<5.7)
== END 2024-07-23 17:39 | disposition home or self-care (01) ==
LOC: LBN 17:38
PROVIDERS: Visit Provider Nurse Practitioner Gerontology
DX: E11.65 Type 2 diabetes mellitus with hyperglycemia (principal); N18.4 Chronic kidney disease, stage 4 (severe)
CPT/HCPCS: 80053; 83036

== ENCOUNTER 2024-08-27 01:10 | Outpatient (CLI) | payer MEDICARE, MEDICAID, SELFPAY ==
--- NOTE | 2024-08-31 10:23 | DI.RAD_ITS ---
Exam(s) XR FOOT RT COMPLETE EXAM: XR FOOT RT COMPLETE CLINICAL HISTORY: RT FOOT PAIN M79.674 OSTEOMYELITIS M86.171. TECHNIQUE: 2D digital imaging was performed of the right foot. Three images were obtained. AP, obl ique and lateral views were obtained. COMPARISON: CR RIGHT FOOT COMPLETE from 11/30/2017 FINDINGS: BONES: No acute fracture is present. No bony destructive lesion is seen. There again seen findings of amputations of the 2nd and 3rd toes. Orthopedic screws are again seen in the medial lateral malleol i. The bones are osteopenic. There is a large plantar calcaneal spur. JOINTS: No dislocation present. There are degenerative changes seen in the foot. SOFT TISSUE: Normal. IMPRESSION: No radiographic findings to suggest osteomyelitis. If symptoms persist, MRI should be considered for further evaluation. DATA REPOSITORY: RADIATION DOSE DELIVERED:
== END 2024-08-27 01:30 ==
PROVIDERS: Visit Provider Nurse Practitioner Gerontology
DX: M86.171 Other acute osteomyelitis, right ankle and foot (principal)
CPT/HCPCS: 73630

== ENCOUNTER → 2024-09-19 11:20 | Outpatient (BNVA) | payer MEDICARE, MEDICAID, SELFPAY | PROVIDERS: Visit Provider Physician Assistant Surgical | DX: G47.30 Sleep apnea, unspecified (principal); Z87.891 Personal history of nicotine dependence; R06.2 Wheezing; I50.9 Heart failure, unspecified | CPT/HCPCS: 99214 ==

== ENCOUNTER 2024-09-24 18:11 | Outpatient (REF) | payer MEDICARE, MEDICAID, SELFPAY ==
[2024-09-24 19:38] LABS: Abs Immature Grans 0.12 10^3/uL (0.0-0.06); HGB 16.5 g/dL (11.2-15.7); MCH 32.5 pg (27.0-33.0); MCV 98 fL (80-95); MPV 10.7 fL (8.0-11.0); Platelet Count 288 10^3/uL (130-400); RBC 5.08 10^6/uL (3.93-5.22); RDW-SD 51.6 fL; WBC 13.77 10^3/uL (4.4-10.8)
[2024-09-24 19:49] LABS: Albumin 3.8 g/dL (3.4-5.0); Anion Gap 10.9 mmol/L (3-11); BUN 59 mg/dL (7-18); CO2 24.1 mmol/L (21.0-32.0); CREATININE 2.4 mg/dL (0.55-1.02); Calcium 9.7 mg/dL (8.5-10.1); Chloride 88 mmol/L (98-107); Estimated GFR 20.93 (mL/min/1.73m2); Glucose 470 mg/dL (74-106); PHOSPHORUS 4.6 mg/dL (2.6-4.7); Potassium 5.7 mmol/L (3.5-5.1); Uric Acid 10.7 mg/dL (2.6-6.0)
[2024-09-24 19:54] LABS: Hemoglobin A1C 8.5 % (<5.7)
[2024-09-24 20:01] LABS: Diff Comment Manual Differential
[2024-09-24 20:02] LABS: Absolute Lymphocyte Count 0.41 10^3/uL (1.2-3.4); Absolute Monocyte Count 0.28 10^3/uL (0.1-0.8); Absolute Neutrophil Count 13.08 10^3/uL (1.2-6.7); Bands % 1 %; RBC Morphology Normal; Sodium 123 mmol/L (136-145)
[2024-09-24 21:41] LABS: Vitamin D 25 Total 42 ng/mL (30-100)
[2024-09-25 19:36] LABS: Parathyroid Hormone,Intact 144.4 pg/mL (19.0-88.0)
[2024-09-25 20:00] LABS: Osmolality Serum 291 mOsm/kg (275-295)
== END 2024-09-24 18:12 | disposition home or self-care (01) ==
LOC: LBN 18:11
PROVIDERS: Visit Provider Nurse Practitioner Family
DX: E11.69 Type 2 diabetes mellitus with other specified complication (principal); N18.4 Chronic kidney disease, stage 4 (severe)
CPT/HCPCS: 80048; 82306; 83935; 81015; 82040; 82043; 82565; 82570; 83036; 83930; 83970; 84100; 84156; 84300; 84550; 85025

== ENCOUNTER 2024-09-25 18:03 | Outpatient (REF) | payer MEDICARE, MEDICAID, SELFPAY ==
[2024-09-25 18:15] LABS: Bilirubin Negative (Negative); Blood Trace-intact (Negative); Clarity Cloudy (Clear); Glucose 500 mg/dL (Negative); Ketones Negative (Negative); Leukocyte Esterase Moderate (Negative); Nitrite Negative (Negative); Urobilinogen 0.2 mg/dL (Up to 0.2); pH 5.5 (5-8)
[2024-09-25 18:27] LABS: Bacteria Moderate HPF (Negative); C & S Indicated? Yes; Crystals Negative HPF (Negative); Epithelial Cells Negative HPF (Negative); Mucus Negative (Negative); RBC 0-2 HPF (0-2); WBC >50 HPF (0-5)
[2024-09-25 18:33] LABS: COMMENT (LAB VIEW ONLY) < 13.00 mg/dL
[2024-09-25 18:38] LABS: PROTEIN < 6.0 mg/dL
[2024-09-25 18:41] LABS: COMMENT (LAB VIEW ONLY) 9.19 mg/dL
[2024-09-25 18:43] LABS: Sodium, Urine 76 mmol/L
[2024-09-26 17:10] LABS: Osmolality, Urine 296 mOsm/kg (150-1150)
== END 2024-09-25 18:04 | disposition home or self-care (01) ==
LOC: LBN 18:03
PROVIDERS: Visit Provider Nurse Practitioner Family
DX: N18.4 Chronic kidney disease, stage 4 (severe) (principal); I10 Essential (primary) hypertension; E11.69 Type 2 diabetes mellitus with other specified complication; E87.1 Hypo-osmolality and hyponatremia
CPT/HCPCS: 83935; 87077; 81003; 81015; 82043; 82565; 82570; 84156; 84300; 87086; 87186

== ENCOUNTER 2024-09-26 16:50 | Emergency (ER) | payer MEDICARE, MEDICAID, SELFPAY ==
[2024-09-26] VITALS (47 sets, daily range): BP systolic 99–124; BP diastolic 43–73; PULSE 48–75; RESP 12–22; TEMP 36.5–36.7; O2SAT 90–97
--- NOTE | 2024-09-26 16:45 | RT.EKG_ITS ---
APPROVED REPORT Exam: Resting ECG Reason for Exam: CHEST PAIN Patient Location: E HR:56 bpm ECG Measurements Heart Rate 56 AXIS CA [id number] P [id number] QRSd 95 QRS 32 QT 449 T 156 QTc 435 Conclusion Atrial fibrillation [address] depression no stemi
--- NOTE | 2024-09-26 16:57 | W.ED.GENAD ---
Discharge Plan Disposition Patient Disposition: Home Condition: Stable Discharge Details Clinical Impression: Chest pain Primary Care Provider: Unknown,Unknown ED Provider: Jia Read Meds and New Rx's Prescriptions: No Action (DME) blood-glucose meter misc See Dose Instructions .ROUTE .MEDSUPPLY Qty: 1 0RF Dose Instruction: As directed Rx Instructions: As directed. AC and HS E11.9 Accucheck isi (DME) lancets 28 gauge misc 1 ea Miscellaneous TID & PRN Qty: 400 12RF Rx Instructions: FOR accucheck Isi METER. PT USES INSULIN. Ac andhs E11.65/Z79.4 (DME) Blood Glucose Test strip See Dose Instructions .ROUTE .MEDSUPPLY Qty: 400 5RF Dose Instruction: AC and HS Rx Instructions: AC and HS E11.21 Jardiance 25 mg tablet 25 mg PO DAILY dextromethorphan-guaifenesin [Guaiasorb DM] 10-100 mg/5 mL liquid 10 ml PO Q4H PRN cholecalciferol (vitamin D3) 50 mcg (2,000 unit) tablet 50 mcg PO DAILY guaifenesin [Mucus Relief ER] 600 mg tablet extended release 12hr 600 mg PO BID bisacodyl 10 mg suppository 10 mg AL PRN urea 40 % cream 1 applic topical DAILY Qty: 28.35 3RF Ozempic 0.25 mg or 0.5 mg (2 mg/3 mL) pen injector 0.5 mg subcut QWEEK Patient Comments: not on detention list calcium carbonate 500 mg calcium (1,250 mg) tablet,chewable 1,000 mg PO Q3-5H PRN metoprolol succinate 50 mg tablet extended release 24 hr 50 mg PO DAILY nitroglycerin 0.4 mg tablet, sublingual 0.4 mg sublingual Q5M PRN Rx Instructions: do not exceed 3 doses per episode polyethylene glycol 3350 [Miralax] 17 gram/dose powder 17 g PO DAILY duloxetine 20 mg capsule, delayed rel sprinkle 20 mg PO BID torsemide 20 mg tablet 80 mg PO DAILY ipratropium-albuterol 0.5 mg-3 mg(2.5 mg base)/3 mL solution for nebulization 3 ml inhalation BID PRN (Reason: shortness of breath or wheezing) bisacodyl 5 mg tablet 10 mg PO DAILY PRN albuterol sulfate 90 mcg/actuation HFA aerosol inhaler 2 puff INHALATION Q4H PRN (Reason: shortness of breath or wheezing) Qty: 8.5 12RF prednisone 10 mg tablet 10 mg PO DAILY Qty: 34 0RF Rx Instructions: Take 40mg (4 tablets) one a day for 4 days, 30mg (3 tablets) once a day for 3 days, 20mg (2 tablets) once a day for 3 days , 10mg (1 tablet) for 2 days, 5mg (0.5 tablets) for 2 days azithromycin 250 mg tablet See Rx Instructions PO .COMPLEX Qty: 6 0RF Rx Instructions: For 250 mg dose pack: take 500 mg today (day 1), then 250 mg for 4 days (days 2-5) PO (DME) insulin syringe needleless [BD Insulin Syringe Slip Tip] 1 mL syringe 1 ea Miscellaneous BID Qty: 120 12RF Rx Instructions: E11.65 (DME) pen needle, diabetic [Pen Needle] 30 gauge x 5/16 needle 1 ea Miscellaneous QID Qty: 300 6RF Rx Instructions: ultra fine [id number]; E11.65 AC and HS docusate sodium 100 mg capsule 100 mg PO QHS levothyroxine 75 mcg capsule 75 mcg PO HS ropinirole 3 mg tablet 2 mg PO BID fluticasone propionate [Flonase Allergy Relief] 50 mcg/actuation [place],Suspension 2 spray INTRANASAL BID insulin lispro [Humalog U-100 Insulin] 100 unit/mL solution 2 - 12 unit subcut TID Patient Comments: hold if BS < 100 Rx Instructions: 201-250 = 2 units 251-300 = 4 units 301-350 = 6 units 351-400 = 8 units 401-450 = 10 units 451-500 = 12 units Trelegy Ellipta 100-62.5-25 mcg Blister With Device 1 inh INHALATION DAILY magnesium oxide 400 mg magnesium Tablet 500 mg PO DAILY Artificial Tears (PF) Dropperette 1 drp ophthalmic (eye) Q2H PRN insulin glargine [Lantus Solostar U-100 Insulin] 100 unit/mL (3 mL) insulin pen 65 unit SUBCUT BID melatonin 3 mg capsule 6 mg PO HS PRN spironolactone 25 mg tablet 50 mg PO BID calcium carbonate-vitamin D3 [Calcium 600 + D(3)] 600 mg(1,500mg) -400 unit Tablet 1 tab PO BID acetaminophen [Tylenol] 325 mg tablet 1,000 mg PO TID Eliquis 5 mg tablet 5 mg PO BID benzonatate 100 mg Capsule 100 mg PO BID omeprazole 20 mg Capsule,Delayed Release(Dr/Ec) 20 mg PO DAILY Discharge Instructions Instructions: Chest Pain, Adult ED Additional Instructions: No evidence for acute heart attack at this time. You have negative troponins. Your white blood cell count is 14.8 however understanding you are on prednisone which can increase her white blood cell count. Sodium was 126 potassium 5.1, your proBNP was 4125. And I do understand they are holding your diuretic. Please discuss this with your provider back at the [facility]. Follow up with primary care provider in 3-5 days. Return to ED sooner if any worsening or concerns. Thank you for allowing us to care for you today Referrals: [facility] [Outside] - 1 day HPI General Mode of arrival: EMS. Date/Time Provider Initiated Documentation: 09/26/24 16:56. Limitations to Documentation: no limitations. Information obtained by: patient, RN/MD (Ella at [facility]), RN notes reviewed and old records reviewed. 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 Hx of atrial fibrillation, Type 2 DM, CHF, Pulmonary fibrosis, Chronic kidney disease, Hypothyroidism, TIA, HTN, HLD, Call taken from RN from [facility] who reports patient has had some elevated potassium and Hyponatremia (K 5.7 and Na 127) they have been giving her 2 extra units on top of her Sliding scale to keep her BGL less than 300. Currently holding spironlactalone. Related Data Home Medications ?Medication ?Instructions ?Recorded ?Confirmed insulin syringe needleless 1 mL #120 SYRGS 04/10/18 09/26/24 (BD Insulin Syringe Slip Tip) pen needle, diabetic 30 gauge x ##300 04/10/18 09/26/2411/23 (Pen Needle) blood-glucose meter #1 ea 11/14/18 09/26/24 blood sugar diagnostic (Blood #400 ea 11/29/18 09/26/24 Glucose Test strips) lancets 28 gauge #400 ea 11/29/18 09/26/24 calcium 600 mg (as 1 tab PO BID 08/26/20 09/26/24 carbonate)-vitamin D3 10 mcg (400 unit) tablet (Calcium 600 + D(3)) apixaban 5 mg tablet (Eliquis) 5 mg PO BID 10/07/20 09/26/24 benzonatate 100 mg capsule 100 mg PO BID 10/07/20 09/26/24 fluticasone propionate 50 2 spray intranasal BID 03/06/21 09/26/24 mcg/actuation nasal spray,suspension (Flonase Allergy Relief) nitroglycerin 0.4 mg sublingual 0.4 mg sublingual Q5M PRN 02/23/22 09/26/24 tablet polyethylene glycol 3350 17 17 g PO DAILY 02/23/22 09/26/24 gram/dose oral powder (Miralax) omeprazole 20 mg capsule,delayed 20 mg PO DAILY 04/22/22 09/26/24 release fluticasone fur. 100 mcg-umeclid 1 inh inhalation DAILY 06/13/22 09/26/24 62.5 mcg-vilant 25 mcg inhalat.powder (Trelegy Ellipta) magnesium oxide 500 mg PO DAILY 06/13/22 09/26/24 docusate sodium 100 mg capsule 100 mg PO QHS 08/23/22 09/26/24 levothyroxine 75 mcg capsule 75 mcg PO HS 08/23/22 09/26/24 insulin lispro 100 unit/mL 2 - 12 unit subcut TID 11/09/22 09/26/24 subcutaneous solution (Humalog U-100 Insulin) ropinirole 3 mg tablet 2 mg PO BID 11/09/22 09/26/24 acetaminophen 325 mg tablet 1,000 mg PO TID 08/22/23 09/26/24 (Tylenol) dextromethorphan-guaifenesin 10 10 ml PO Q4H PRN 08/22/23 09/26/24 mg-100 mg/5 mL oral liquid (Guaiasorb DM) empagliflozin 25 mg tablet 25 mg PO DAILY 08/22/23 09/26/24 (Jardiance) ipratropium 0.5 mg-albuterol 3 mg 3 ml inhalation BID PRN shortness 08/22/23 09/26/24 (2.5 mg base)/3 mL nebulization of breath or wheezing soln urea 40 % topical cream 1 applic topical DAILY #28.35 grams 01/26/24 09/26/24 semaglutide 0.25 mg or 0.5 mg (2 0.5 mg subcut QWEEK 02/29/24 09/26/24 mg/3 mL) subcutaneous pen injector (Ozempic) dextran 70-hypromellose eye drops 1 drp ophthalmic (eye) Q2H PRN 03/13/24 09/26/24 in a dropperette (Artificial Tears (PF) drops in a dropperette) bisacodyl 10 mg rectal suppository 10 mg AL PRN 03/19/24 09/26/24 cholecalciferol (vitamin D3) 50 50 mcg PO DAILY 03/19/24 09/26/24 mcg (2,000 unit) tablet guaifenesin 600 mg tablet, 600 mg PO BID 03/19/24 09/26/24 extended release 12 hr (Mucus Relief ER) calcium carbonate 1,000 mg PO Q3-5H PRN 05/23/24 09/26/24 metoprolol succinate 50 mg 50 mg PO DAILY 05/23/24 09/26/24 tablet,extended release 24 hr albuterol sulfate 90 mcg/actuation 2 puff inhalation Q4H PRN 06/20/24 09/26/24 aerosol inhaler shortness of breath or wheezing #8.5 grams bisacodyl 5 mg tablet 10 mg PO DAILY PRN 06/20/24 09/26/24 azithromycin 250 mg tablet See Rx Instructions PO .COMPLEX #6 09/19/24 09/26/24 tabs duloxetine 20 mg capsule,delayed 20 mg PO BID 09/19/24 09/26/24 release sprinkle insulin glargine 100 unit/mL (3 65 unit subcut BID 09/19/24 09/26/24 mL) subcutaneous pen (Lantus Solostar U-100 Insulin) prednisone 10 mg tablet 10 mg PO DAILY #34 tabs 09/19/24 09/26/24 torsemide 20 mg tablet 80 mg PO DAILY 09/19/24 09/26/24 melatonin 3 mg capsule 6 mg PO HS PRN 09/26/24 09/26/24 spironolactone 25 mg tablet 50 mg PO BID 09/26/24 09/26/24 Previous Rx's ?Medication ?Instructions ?Recorded insulin syringe needleless 1 mL #120 SYRGS 04/10/18 (BD Insulin Syringe Slip Tip) pen needle, diabetic 30 gauge x ##300 04/10/1811/23 (Pen Needle) blood-glucose meter #1 ea 11/14/18 blood sugar diagnostic (Blood #400 ea 11/29/18 Glucose Test strips) lancets 28 gauge #400 ea 11/29/18 urea 40 % topical cream 1 applic topical DAILY #28.35 grams 01/26/24 albuterol sulfate 90 mcg/actuation 2 puff inhalation Q4H PRN 06/20/24 aerosol inhaler shortness of breath or wheezing #8.5 grams azithromycin 250 mg tablet See Rx Instructions PO .COMPLEX #6 09/19/24 tabs prednisone 10 mg tablet 10 mg PO DAILY #34 tabs 09/19/24 Allergies Allergy/AdvReac Type Severity Reaction Status Date / Time No Known Allergies Allergy Verified 09/26/24 17:01 General JOLEEN: 3 Review of Systems All systems reviewed & are unremarkable except as noted in HPI and below Constitutional Constitutional: Denies fever(s) Cardiovascular Cardiovascular: Reports chest pain and Reports dyspnea (Reports at baseline) Respiratory Respiratory: Reports dyspnea (Reports at baseline) Gastrointestinal Gastrointestinal: Denies abdominal pain, Denies diarrhea, Denies nausea and Denies vomiting Exam Narrative Exam Narrative: Constitutional: Alert and oriented x3. Appears stated age. Obese body habitus. Head: Normocephalic, no trauma. Eyes: Pupils PERRL, Red reflex noted, EOM's intact. Eyelids symmetrical without lesions, discharge, or swelling. ENT: Bilateral TM's WNL, External ear normal to inspection, no mastoid TTP, swelling, or erythema, Nasal turbinates WNL, no nasal discharge. Normal dentition, Posterior pharynx WNL, no exudate. Chest: RRR, Normal S1, S2, distal pulses intact. Resp: Lungs clear to auscultation bilaterally, no wheezes, rales, or rhonchi. Abdomen: Soft, non-distended, Normoactive bowel sounds all 4 quads. Musculoskeletal: Normal gait, Moves all 4 extremities without difficulty. Skin: No suspicious rashes or lesions. Capillary refill less than 2 sec. Neurologic: Cranial nerves II-XII intact. Alert and oriented x 3. Motor: No deficits noted. Sensory: Intact bilaterally all 4 extremities. Hematologic/Lymphatic: No ecchymosis, no lymphadenopathy. Medical Decision Making 74 year old female presents via EMS from 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 Hx of atrial fibrillation, Type 2 DM, CHF, Pulmonary fibrosis, Chronic kidney disease, Hypothyroidism, TIA, HTN, HLD, Call taken from RN from [facility] who reports patient has had some elevated potassium and Hyponatremia (K 5.7 and Na 127) they have been giving her 2 extra units on top of her Sliding scale to keep her BGL less than 300. Currently holding spironlactalone. EKG was reviewed by Dr. Yao and myself ER attending, old EKG available for review, no significant changes noted. Patient has no complaints of chest pain at this time. She reports that this has subsided. Workup CBC CMP, proBNP due to the history of CHF, chest x-ray 182: Informed by staff physician that patient states that her chest pain has returned 0.4 sublingual nitro x 1 ordered. CBC shows a white blood cell count of 14.8, absolute neutrophils 12.6 however patient has been on a stable dose of prednisone, sodium is 126 potassium 5.1 BUN 66 creatinine 2.4 GFR 20.9 glucose 281 bilirubin 1.1 initial troponin 28, proBNP is elevated at 4125, they have been holding her spironolactone for low sodium. Patient refused third nitroglycerin, 2 mg of morphine ordered. Patient has no pain after morphine 2 mg. Third troponin within normal limits. Patient has not complained of chest pain since the morphine. No evidence of pneumonia on chest x-ray. Will discharge back to the [facility]. EMS here for transport back to the [facility]. This text was generated using [employer] system, please disregard any oddities of phrase or misspellings. Medical Records Medical records reviewed: Yes I reviewed the patient's medical records. Lab Data Lab results reviewed: Yes I reviewed the patient's lab results. Labs: Laboratory Tests Range/Units 09/26/24 09/26/24 09/26/24 17:10 18:21 20:08 WBC (4.4-10.8) 10^3/uL 14.87 H RBC (3.93-5.22) 10^6/uL 4.97 Hgb (11.2-15.7) g/dL 16.1 H Hct (36.0-46.0) % 47.1 H MCV (80-95) fL 95 MCH (27.0-33.0) pg 32.4 MCHC (32.0-36.0) % 34.2 RDW (11.7-14.6) % 13.6 Plt Count (130-400) 10^3/uL 300 MPV (8.0-11.0) fL 10.0 Immature Gran % % 0.8 Neutrophils % % 85.0 Lymphocytes % % 6.2 Monocytes % % 3.6 Eosinophils % % 4.0 Basophils % % 0.4 Nucleated RBC % (0.0-0.3) % 0.0 Absolute Neutrophils (1.2-6.7) 10^3/uL 12.64 H Absolute Lymphocytes (1.2-3.4) 10^3/uL 0.92 L Absolute Monocytes (0.1-0.8) 10^3/uL 0.54 Absolute Eosinophils (0.0-0.7) 10^3/uL 0.59 Absolute Basophils (0.0-0.2) 10^3/uL 0.06 PT (9.1-11.1) sec 12.6 H INR (0.9-1.1) 1.3 H APTT (20.6-30.2) sec 31.2 H Sodium (136-145) mmol/L 126 L Potassium (3.5-5.1) mmol/L 5.1 Chloride (98-107) mmol/L 89 L Carbon Dioxide (21.0-32.0) mmol/L 27.9 Anion Gap (3-11) mmol/L 9.1 BUN (7-18) mg/dL 66 H Creatinine (0.55-1.02) mg/dL 2.4 H Est GFR (CKD-EPI 2020) (mL/min/1.73m2) 20.93 Glucose (74-106) mg/dL 281 H Calcium (8.5-10.1) mg/dL 9.6 Magnesium (1.8-2.4) mg/dL 2.3 Total Bilirubin (0.2-1.0) mg/dL 1.1 H AST (15-37) U/L 20 ALT (14-59) U/L 26 Alkaline Phosphatase (46-116) U/L 108 Troponin I (<or=51) ng/L 28 26 27 NT-Pro-B Natriuret Pep (<300) pg/mL 4125 H Total Protein (6.4-8.2) g/dL 8.3 H Albumin (3.4-5.0) g/dL 3.6 Quality:SDOH Health Related Social Needs: No Data to Display PFSH All Active Problems (Updated 09/26/24 @ 21:05 by Jia Read NP) Chest pain (Acute) Abnormal chest x-ray (Acute) Abnormal PFTs (Acute) Onychomycosis (Acute) Venous insufficiency (Acute) Chronic pain (Chronic) Leg edema (Acute) Advanced care planning/counseling discussion (Acute) Onycholysis (Acute) Mixed conductive and sensorineural hearing loss, unspecified (Acute) Otosclerosis of both ears (Acute) Encounter for competency evaluation (Acute) Periprosthetic hip fracture (Acute) Left hip Charcot's joint, left ankle and foot (Acute ~04/2019) Closed fracture of ankle (Acute) Vitamin D deficiency (Chronic 05/07/15) Sciatica (Chronic) right; xray from 02/10 showed scattered spondylosis ant L4-5 on the left and mid lumbar scoliosis convex to the right Polycythemia (Chronic 03/08/17) Otosclerosis (Chronic 10/14/14) Osteoarthritis (Chronic) right shoulder AC-DJD, Glenohumoral jt. 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 quit in 1995 after approximately 30 pack years Insomnia (Chronic) Left knee DJD (Chronic) DJD of shoulder (Chronic) a. on right Arthritis (Chronic) Medical History Atherosclerosis of artery of both lower extremities Chronic heart failure with preserved ejection fraction Chronic kidney disease Hypothyroidism (01/09/13) Type 2 diabetes mellitus with diabetic neuropathy (05/13/15) SEEN ENDOCRINE AT [facility] [facility] Transient ischemic attack Pulmonary hypertension (04/13/17) Essential hypertension (06/22/13) Atrial fibrillation Depression Hyperlipidemia Morbid obesity Pulmonary fibrosis Palliative care encounter Surgical History Amputated toe of right foot History of Achilles tendon repair PROCEDURES REPAIR OF INTESTINE NEC puncture during colonoscopy Colonoscopy - MAC (~2003) Extraction of cataract 04/15/17 DR. ARRIETA; LEFT EYE 04/29/17 DR. ARRIETA; RIGHT EYE Amputation RIGHT SECOND AND THIRD TOES DUE TO DIABETIC ULCERS WITH CELLULITIS;11/14/17 DR. MAI Family History Mother Neoplasm LUNG Father Heart disease Brother Heart disease Sister No problems noted. Grandfather Heart disease Grandfather Heart disease Grandmother Diabetes Grandmother Diabetes Sister No problems noted. Sister No problems noted. Sister Diabetes Sister No problems noted. Brother No problems noted. Brother No problems noted. Social History Smoking/Tobacco Use Status: Former Tobacco Use Quit Date: 09/26/93 Smoking risk assessment performed?: Yes Alcohol Intake: never Drug use: Rarely Substance use type: does not use Housing: detention current occupation: lives @ [employer] Current gender identity: female Do you feel safe at home: Yes Do you feel safe in your relationship?: Yes
[2024-09-26 17:30] LABS: Abs Immature Grans 0.12 10^3/uL (0.0-0.06); Absolute Basophil Count 0.06 10^3/uL (0.0-0.2); Absolute Eosinophil Count 0.59 10^3/uL (0.0-0.7); Absolute Lymphocyte Count 0.92 10^3/uL (1.2-3.4); Basophils % 0.4 %; HCT 47.1 % (36.0-46.0); HGB 16.1 g/dL (11.2-15.7); Immature Grans % 0.8 %; Lymphocytes % 6.2 %; MCH 32.4 pg (27.0-33.0); MCHC 34.2 % (32.0-36.0); MCV 95 fL (80-95); Monocytes % 3.6 %; Platelet Count 300 10^3/uL (130-400); RBC 4.97 10^6/uL (3.93-5.22); RDW 13.6 % (11.7-14.6); RDW-SD 46.8 fL; WBC 14.87 10^3/uL (4.4-10.8)
[2024-09-26 17:46] LABS: ALT 26 U/L (14-59); AST 20 U/L (15-37); Absolute Monocyte Count 0.54 10^3/uL (0.1-0.8); Absolute Neutrophil Count 12.64 10^3/uL (1.2-6.7); Albumin 3.6 g/dL (3.4-5.0); Alkaline Phosphatase 108 U/L (46-116); Anion Gap 9.1 mmol/L (3-11); BUN 66 mg/dL (7-18); Bilirubin, Total 1.1 mg/dL (0.2-1.0); CO2 27.9 mmol/L (21.0-32.0); CREATININE 2.4 mg/dL (0.55-1.02); Calcium 9.6 mg/dL (8.5-10.1); Chloride 89 mmol/L (98-107); Estimated GFR 20.93 (mL/min/1.73m2); Glucose 281 mg/dL (74-106); Magnesium 2.3 mg/dL (1.8-2.4); NT-proBNP 4125 pg/mL (<300); Potassium 5.1 mmol/L (3.5-5.1); Sodium 126 mmol/L (136-145); Total Protein 8.3 g/dL (6.4-8.2); Troponin I 28 ng/L (<or=51)
[2024-09-26 18:12] LABS: INR 1.3 (0.9-1.1); PTT Activated 31.2 sec (20.6-30.2); Prothrombin Time 12.6 sec (9.1-11.1)
[2024-09-26] MEDS: MORPHine 10 MG/ML VIAL 2 MG IVP (18:32)
--- NOTE | 2024-09-26 18:51 | DI.RAD_ITS ---
Exam(s) XR PORTABLE CHEST AP EXAM: XR PORTABLE CHEST AP CLINICAL HISTORY: Chest pain TECHNIQUE: 2D digital imaging was performed of the chest. One image was obtained. An AP view was ob tained. COMPARISON: CR,XR XR CHEST 2V PA LATERAL from 03/13/2024 FINDINGS: MEDIASTINUM: Normal. HEART: Normal. PULMONARY VASCULATURE: Normal. LUNGS: There is scarring seen in the left lung which is stable. No focal consolidating infiltrates. PLEURAL SPACE: No pleural effusion or pneumothorax. BONE:Within normal limits for the patient's age. OTHER FINDINGS:Normal. IMPRESSION: No acute pulmonary findings. DATA REPOSITORY: RADIATION DOSE DELIVERED:
[2024-09-26 19:06] LABS: Troponin I 26 ng/L (<or=51)
[2024-09-26 20:55] LABS: Troponin I 27 ng/L (<or=51)
== END 2024-09-26 21:20 | disposition home or self-care (01) ==
PROVIDERS: Emergency Provider Registered Nurse Emergency
DX: R07.9 Chest pain, unspecified (principal); Z86.79 Personal history of other diseases of the circulatory system
CPT/HCPCS: 80053; 93005; 96374; 99284; 71045; 83735; 83880; 84484; 85025; 85610; 85730; 93010; 99283; J2270

== ENCOUNTER 2024-10-01 19:56 | Outpatient (REF) | payer MEDICARE, MEDICAID, SELFPAY ==
[2024-10-01 20:02] LABS: BUN 78 mg/dL (7-18); CREATININE 2.3 mg/dL (0.55-1.02); Calcium 9.5 mg/dL (8.5-10.1); Chloride 92 mmol/L (98-107); Estimated GFR 22.03 (mL/min/1.73m2); Glucose 313 mg/dL (74-106); NT-proBNP 3909 pg/mL (<300); Potassium 5.4 mmol/L (3.5-5.1); Sodium 129 mmol/L (136-145)
== END 2024-10-01 19:57 | disposition home or self-care (01) ==
LOC: LBN 19:56
PROVIDERS: Visit Provider Nurse Practitioner Gerontology
DX: E50.3 Vitamin A deficiency with corneal ulceration and xerosis (principal); E87.3 Alkalosis; N18.4 Chronic kidney disease, stage 4 (severe)
CPT/HCPCS: 80048; 83880

== ENCOUNTER 2024-10-08 17:37 | Outpatient (REF) | payer MEDICARE, MEDICAID, SELFPAY ==
[2024-10-08 18:12] LABS: Abs Immature Grans 0.09 10^3/uL (0.0-0.06); Absolute Basophil Count 0.07 10^3/uL (0.0-0.2); Absolute Eosinophil Count 0.05 10^3/uL (0.0-0.7); Absolute Lymphocyte Count 1.63 10^3/uL (1.2-3.4); Absolute Monocyte Count 1.05 10^3/uL (0.1-0.8); Basophils % 0.5 %; Eosinophils % 0.4 %; HCT 50.7 % (36.0-46.0); HGB 16.9 g/dL (11.2-15.7); Immature Grans % 0.7 %; Lymphocytes % 11.9 %; MCH 32.4 pg (27.0-33.0); MCHC 33.3 % (32.0-36.0); MCV 97 fL (80-95); MPV 10.6 fL (8.0-11.0); Monocytes % 7.7 %; Neutrophils % 78.8 %; Platelet Count 260 10^3/uL (130-400); RBC 5.22 10^6/uL (3.93-5.22); RDW-SD 49.7 fL
[2024-10-08 18:25] LABS: ALT 29 U/L (14-59); AST 21 U/L (15-37); Albumin 3.8 g/dL (3.4-5.0); Alkaline Phosphatase 98 U/L (46-116); Anion Gap 11.9 mmol/L (3-11); BUN 58 mg/dL (7-18); Bilirubin, Total 1.3 mg/dL (0.2-1.0); CO2 26.1 mmol/L (21.0-32.0); CREATININE 2.1 mg/dL (0.55-1.02); Calcium 9.6 mg/dL (8.5-10.1); Chloride 92 mmol/L (98-107); Estimated GFR 24.57 (mL/min/1.73m2); Glucose 161 mg/dL (74-106); Magnesium 2.9 mg/dL (1.8-2.4); Potassium 5.2 mmol/L (3.5-5.1); Sodium 130 mmol/L (136-145); Total Protein 7.2 g/dL (6.4-8.2)
[2024-10-09 18:59] LABS: NT-proBNP 5861 pg/mL (<300)
== END 2024-10-08 17:38 | disposition home or self-care (01) ==
LOC: LBN 17:37
PROVIDERS: Visit Provider Nurse Practitioner Gerontology
DX: E87.8 Other disorders of electrolyte and fluid balance, not elsewhere classified (principal); D63.1 Anemia in chronic kidney disease; E83.42 Hypomagnesemia
CPT/HCPCS: 80053; 83735; 83880; 85025

== ENCOUNTER 2024-10-29 18:00 | Outpatient (REF) | payer MEDICARE, MEDICAID, SELFPAY ==
[2024-10-29 18:03] LABS: Anion Gap 12.5 mmol/L (3-11); BUN 31 mg/dL (7-18); CO2 24.5 mmol/L (21.0-32.0); CREATININE 1.6 mg/dL (0.55-1.02); Calcium 9.3 mg/dL (8.5-10.1); Chloride 100 mmol/L (98-107); Estimated GFR 34.05 (mL/min/1.73m2); Glucose 189 mg/dL (74-106); Magnesium 2.1 mg/dL (1.8-2.4); Sodium 137 mmol/L (136-145)
[2024-10-30 14:15] LABS: NT-proBNP 4391 pg/mL (<300)
== END 2024-10-29 18:01 | disposition home or self-care (01) ==
LOC: LBN 18:00
PROVIDERS: Visit Provider Nurse Practitioner Gerontology
DX: I11.0 Hypertensive heart disease with heart failure (principal); E83.42 Hypomagnesemia
CPT/HCPCS: 80048; 83735; 83880

== ENCOUNTER → 2024-11-07 13:18 | Outpatient (BNVA) | payer MEDICARE, MEDICAID, SELFPAY | PROVIDERS: Visit Provider Podiatrist | DX: B35.1 Tinea unguium (principal); E11.40 Type 2 diabetes mellitus with diabetic neuropathy, unspecified; Z79.4 Long term (current) use of insulin; I70.203 Unspecified atherosclerosis of native arteries of extremities, bilateral legs; E11.8 Type 2 diabetes mellitus with unspecified complications; I87.2 Venous insufficiency (chronic) (peripheral); R60.0 Localized edema; Z89.421 Acquired absence of other right toe(s); R09.89 Other specified symptoms and signs involving the circulatory and respiratory systems; R20.8 Other disturbances of skin sensation; I83.93 Asymptomatic varicose veins of bilateral lower extremities; R23.8 Other skin changes; M79.674 Pain in right toe(s); M79.672 Pain in left foot; L60.2 Onychogryphosis; L60.8 Other nail disorders | CPT/HCPCS: 11055; 11721 ==

== ENCOUNTER 2024-11-08 19:14 | Outpatient (REF) | payer MEDICARE, MEDICAID, SELFPAY ==
[2024-11-08 20:05] LABS: Anion Gap 16.6 mmol/L (3-11); BUN 72 mg/dL (7-18); CO2 19.4 mmol/L (21.0-32.0); CREATININE 1.9 mg/dL (0.55-1.02); Calcium 9.7 mg/dL (8.5-10.1); Chloride 93 mmol/L (98-107); Estimated GFR 27.71 (mL/min/1.73m2); Glucose 301 mg/dL (74-106); Potassium 4.8 mmol/L (3.5-5.1); Sodium 129 mmol/L (136-145)
== END 2024-11-08 19:15 | disposition home or self-care (01) ==
LOC: LBN 19:14
PROVIDERS: Visit Provider Nurse Practitioner Gerontology
DX: E87.8 Other disorders of electrolyte and fluid balance, not elsewhere classified (principal)
CPT/HCPCS: 80048

== ENCOUNTER 2024-11-12 18:44 | Outpatient (REF) | payer MEDICARE, MEDICAID, SELFPAY ==
[2024-11-12 20:22] LABS: Anion Gap 11.3 mmol/L (3-11); CO2 23.7 mmol/L (21.0-32.0); CREATININE 2.2 mg/dL (0.55-1.02); Calcium 10.7 mg/dL (8.5-10.1); Chloride 92 mmol/L (98-107); Estimated GFR 23.24 (mL/min/1.73m2); Glucose 155 mg/dL (74-106); Potassium 5.2 mmol/L (3.5-5.1); Sodium 127 mmol/L (136-145)
[2024-11-12 20:25] LABS: BUN 84 mg/dL (7-18)
== END 2024-11-12 18:45 | disposition home or self-care (01) ==
LOC: LBN 18:44
PROVIDERS: Visit Provider Nurse Practitioner Gerontology
DX: E87.8 Other disorders of electrolyte and fluid balance, not elsewhere classified (principal)
CPT/HCPCS: 80048

== ENCOUNTER → 2024-11-16 09:58 | Outpatient (BNVA) | payer MEDICARE, MEDICAID, SELFPAY | PROVIDERS: Visit Provider Internal Medicine Cardiovascular Disease | DX: I48.20 Chronic atrial fibrillation, unspecified (principal); I50.32 Chronic diastolic (congestive) heart failure; R07.89 Other chest pain | CPT/HCPCS: 99214 ==

== ENCOUNTER 2024-11-19 18:05 | Outpatient (REF) | payer MEDICARE, MEDICAID, SELFPAY ==
[2024-11-19 18:10] LABS: Anion Gap 7.9 mmol/L (3-11); BUN 71 mg/dL (7-18); CO2 25.1 mmol/L (21.0-32.0); CREATININE 1.9 mg/dL (0.55-1.02); Calcium 9.4 mg/dL (8.5-10.1); Chloride 95 mmol/L (98-107); Estimated GFR 27.71 (mL/min/1.73m2); Glucose 218 mg/dL (74-106); Potassium 5.4 mmol/L (3.5-5.1); Sodium 128 mmol/L (136-145)
== END 2024-11-19 18:06 | disposition home or self-care (01) ==
LOC: LBN 18:05
PROVIDERS: Visit Provider Nurse Practitioner Gerontology
DX: E87.6 Hypokalemia (principal)
CPT/HCPCS: 80048

== ENCOUNTER 2024-11-27 09:43 | Emergency (ER) | payer MEDICARE, MEDICAID, SELFPAY ==
--- NOTE | 2024-11-27 09:45 | DI.US_ITS ---
Exam(s) US SOFT TISSUE EXTREMITY EXAM: US SOFT TISSUE EXTREMITY CLINICAL HISTORY: mass left medial lower leg. TECHNIQUE: Ultrasound was performed using standard protocol. COMPARISON: US US LOWER EXTREMITY VENOUS LT from 11/27/2024 CR XR HIP LT COMPLETE AP PELVIS from 11/27/2024 FINDINGS: Sonographic assessment utilizing grayscale and color Doppler imaging was performed and targeted to th e area of clinical concern. Area of the palpable abnormality in the posterior left calf corresponds to the a smoothly marginated hypoechoic nodule measuring 2.1 x 1.0 x 1.4 cm. There is minimal or no associated vascularity. Ther e is edema in the adjacent fat. Findings could represent abnormally enlarged lymph node versus other soft tissue mass. IMPRESSION: 2.1 centimeter solid appearing nodule corresponding to the palpable abnormality in the calf. Soft ti ssue mass versus enlarged lymph node. DATA REPOSITORY:
--- NOTE | 2024-11-27 09:45 | DI.RAD_ITS ---
Exam(s) XR HIP LT COMPLETE AP PELVIS EXAM: XR HIP LT COMPLETE AP PELVIS CLINICAL HISTORY: left hip pain post fall 3 wks ago. TECHNIQUE: 2D digital imaging was performed. Three views. COMPARISON: CR XR PELVIS AP from 03/06/2021 FINDINGS: BONES: The sacrum is mainly obscured by overlying stool and bowel gas. No acute fracture is present. No bony destructive lesion is seen. JOINTS: No dislocation present. Stable alignment of the left total hip prosthesis. SI joints and pubic symphysis are unremarkable. SOFT TISSUE: Normal. IMPRESSION: Stable appearance of left total hip prosthesis. DATA REPOSITORY: RADIATION DOSE DELIVERED:
--- NOTE | 2024-11-27 09:45 | DI.US_ITS ---
Exam(s) US LOWER EXTREMITY VENOUS LT EXAM: US LOWER EXTREMITY VENOUS LT CLINICAL HISTORY: mass, swelling left calf. TECHNIQUE: Lower extremity venous ultrasound performed using grayscale, color-flow, and spectral Do ppler analysis. COMPARISON: No exams were available for comparison FINDINGS: The common femoral, femoral and popliteal veins demonstrate normal compressibility, augmentation, and color Doppler. The posterior tibial and peroneal veins are patent. No saphenous vein thrombosis or other superficial venous thrombosis is seen. A small Nichols's cyst is seen, measuring 2.7 x 0.8 x 1.8 cm. IMPRESSION: Small Nichols's cyst. No evidence of DVT. DATA REPOSITORY:
[2024-11-27 09:50] VITALS: BP 108/42; PULSE 50; RESP 20; TEMP 36.6; O2SAT 96
[2024-11-27 10:30] LABS: Abs Immature Grans 0.06 10^3/uL (0.0-0.06); Absolute Basophil Count 0.06 10^3/uL (0.0-0.2); Absolute Lymphocyte Count 1.32 10^3/uL (1.2-3.4); Absolute Monocyte Count 0.86 10^3/uL (0.1-0.8); Absolute Neutrophil Count 9.72 10^3/uL (1.2-6.7); Basophils % 0.5 %; Eosinophils % 0.7 %; Immature Grans % 0.5 %; Lymphocytes % 10.9 %; MCH 31.9 pg (27.0-33.0); MCHC 33.3 % (32.0-36.0); MCV 96 fL (80-95); MPV 10.3 fL (8.0-11.0); Monocytes % 7.1 %; Neutrophils % 80.3 %; Platelet Count 223 10^3/uL (130-400); RBC 5.01 10^6/uL (3.93-5.22); RDW 14.1 % (11.7-14.6); RDW-SD 49.4 fL; WBC 12.11 10^3/uL (4.4-10.8)
[2024-11-27 10:31] LABS: Absolute Eosinophil Count 0.08 10^3/uL (0.0-0.7)
[2024-11-27 10:36] LABS: ESR 14 mm/hr (0-30)
[2024-11-27 10:42] VITALS: BP 118/52; PULSE 50; RESP 16; TEMP 36.4; O2SAT 95
[2024-11-27 10:47] VITALS: BP 113/48; PULSE 54; RESP 16; TEMP 36.4; O2SAT 95
--- NOTE | 2024-11-27 10:48 | NUR.NOTE ---
attempt redraw by LNANursing Note:
[2024-11-27 11:17] LABS: ALT 22 U/L (14-59); AST 19 U/L (15-37); Albumin 3.9 g/dL (3.4-5.0); Alkaline Phosphatase 141 U/L (46-116); Anion Gap 11.2 mmol/L (3-11); BUN 69 mg/dL (7-18); Bilirubin, Total 0.7 mg/dL (0.2-1.0); C-Reactive Protein 0.62 mg/dL (<or=0.5); CO2 24.8 mmol/L (21.0-32.0); CREATININE 1.8 mg/dL (0.55-1.02); Calcium 9.9 mg/dL (8.5-10.1); Chloride 95 mmol/L (98-107); Estimated GFR 29.57 (mL/min/1.73m2); Glucose 268 mg/dL (74-106); Potassium 4.6 mmol/L (3.5-5.1); Sodium 131 mmol/L (136-145); Total Protein 8.2 g/dL (6.4-8.2)
[2024-11-27 11:36] VITALS: BP 113/32; PULSE 48; RESP 15; TEMP 36.6; O2SAT 97
[2024-11-27] MEDS: Cephalexin 500 MG CAP, 4 CAPS/BTL PO (12:39)
[2024-11-27 12:42] VITALS: BP 106/43; PULSE 46; RESP 18; TEMP 36.5; O2SAT 99
--- NOTE | 2024-11-27 13:33 | NUR.NOTE ---
Patient returned to the [facility] and report given to Nurse Krueger
--- NOTE | 2024-11-27 15:19 | W.ED.GENAD ---
Discharge Plan Disposition Patient Disposition: Home Condition: Stable Discharge Details Clinical Impression: Mass of leg, Acute hip pain Primary Care Provider: Unknown,Unknown ED Provider: Clotilde Riggins Home Meds and New Rx's Prescriptions: New cephalexin 500 mg capsule 500 mg PO BID 7 Days Qty: 14 0RF Continued dextromethorphan-guaifenesin [Guaiasorb DM] 10-100 mg/5 mL liquid 10 ml PO Q4H PRN ropinirole 2 mg tablet 2 mg PO DAILY cholecalciferol (vitamin D3) 50 mcg (2,000 unit) tablet 50 mcg PO DAILY guaifenesin [Mucus Relief ER] 600 mg tablet extended release 12hr 600 mg PO BID urea 40 % cream 1 applic topical DAILY Qty: 28.35 3RF Ozempic 0.25 mg or 0.5 mg (2 mg/3 mL) pen injector 0.5 mg subcut QWEEK calcium carbonate 500 mg calcium (1,250 mg) tablet,chewable 1,000 mg PO Q3-5H PRN nitroglycerin 0.4 mg tablet, sublingual 0.4 mg sublingual Q5M PRN Rx Instructions: do not exceed 3 doses per episode polyethylene glycol 3350 [Miralax] 17 gram/dose powder 17 g PO DAILY ipratropium-albuterol 0.5 mg-3 mg(2.5 mg base)/3 mL solution for nebulization 3 ml inhalation BID PRN (Reason: shortness of breath or wheezing) bisacodyl 5 mg tablet 10 mg PO DAILY PRN albuterol sulfate 90 mcg/actuation HFA aerosol inhaler 2 puff INHALATION Q4H PRN (Reason: shortness of breath or wheezing) Qty: 8.5 12RF docusate sodium 100 mg capsule 100 mg PO QHS levothyroxine 75 mcg capsule 75 mcg PO HS insulin glargine [Lantus Solostar U-100 Insulin] 100 unit/mL (3 mL) insulin pen 55 unit SUBCUT BID Patient Comments: 55 units at bedtime as well Jardiance 10 mg tablet 10 mg PO DAILY torsemide 20 mg tablet See Rx Instructions PO .COMPLEX Rx Instructions: orally; Med list from [facility] states 80mg BID. duloxetine 20 mg capsule, delayed rel sprinkle 20 mg PO QDAY fluticasone propionate [Flonase Allergy Relief] 50 mcg/actuation [place],Suspension 2 spray INTRANASAL BID insulin lispro [Humalog U-100 Insulin] 100 unit/mL solution 2 - 12 unit subcut TID Patient Comments: hold if BS < 100 Rx Instructions: 201-250 = 2 units 251-300 = 4 units 301-350 = 6 units 351-400 = 8 units 401-450 = 10 units 451-500 = 12 units Trelegy Ellipta 100-62.5-25 mcg Blister With Device 1 inh INHALATION DAILY magnesium oxide 400 mg magnesium Tablet 500 mg PO DAILY Artificial Tears (PF) Dropperette 1 drp ophthalmic (eye) Q2H PRN melatonin 3 mg capsule 6 mg PO HS PRN spironolactone 25 mg tablet 50 mg PO .daily' calcium carbonate-vitamin D3 [Calcium 600 + D(3)] 600 mg(1,500mg) -400 unit Tablet 1 tab PO BID acetaminophen [Tylenol] 325 mg tablet 1,000 mg PO TID Eliquis 5 mg tablet 5 mg PO BID omeprazole 20 mg Capsule,Delayed Release(Dr/Ec) 20 mg PO DAILY benzonatate 100 mg capsule 100 mg PO DAILY metoprolol succinate 50 mg tablet extended release 24 hr 50 mg PO DAILY Discharge Instructions Instructions: Hip Pain ED Additional Instructions: Take the Keflex as prescribed, warm compresses and wash left calf with soap and water twice daily if mass persists in 1 week recommendation to follow-up with surgery in the outpatient setting for possible biopsy. Tylenol as needed for pain to hip, no obvious fracture Please return with spreading redness, fever, worsening pain, recheck in 48 hours with primary care doctor HPI General Date/Time Provider Initiated Documentation: 11/27/24 09:53. HPI Narrative: 74-year-old female from local shelter with left hip pain and possible cellulitis or abscess on left inner calf. Fell 2 weeks ago, resulting in left hip pain, previously replaced. No additional falls, head injury, or abdominal pain. On anticoagulation therapy, no blood in urine or stool. care home staff observed painful mass on left inner calf on Tuesday. No new trauma. Alert and oriented, significantly hearing impaired, not in acute distress. Related Data Home Medications ?Medication ?Instructions ?Recorded ?Confirmed calcium 600 mg (as 1 tab PO BID 08/26/20 11/27/24 carbonate)-vitamin D3 10 mcg (400 unit) tablet (Calcium 600 + D(3)) apixaban 5 mg tablet (Eliquis) 5 mg PO BID 10/07/20 11/27/24 fluticasone propionate 50 2 spray intranasal BID 03/06/21 11/27/24 mcg/actuation nasal spray,suspension (Flonase Allergy Relief) nitroglycerin 0.4 mg sublingual 0.4 mg sublingual Q5M PRN 02/23/22 11/27/24 tablet polyethylene glycol 3350 17 17 g PO DAILY 02/23/22 11/27/24 gram/dose oral powder (Miralax) omeprazole 20 mg capsule,delayed 20 mg PO DAILY 04/22/22 11/27/24 release fluticasone fur. 100 mcg-umeclid 1 inh inhalation DAILY 06/13/22 11/27/24 62.5 mcg-vilant 25 mcg inhalat.powder (Trelegy Ellipta) magnesium oxide 500 mg PO DAILY 06/13/22 11/27/24 docusate sodium 100 mg capsule 100 mg PO QHS 08/23/22 11/27/24 levothyroxine 75 mcg capsule 75 mcg PO HS 08/23/22 11/27/24 insulin lispro 100 unit/mL 2 - 12 unit subcut TID 11/09/22 11/27/24 subcutaneous solution (Humalog U-100 Insulin) acetaminophen 325 mg tablet 1,000 mg PO TID 08/22/23 11/27/24 (Tylenol) dextromethorphan-guaifenesin 10 10 ml PO Q4H PRN 08/22/23 11/27/24 mg-100 mg/5 mL oral liquid (Guaiasorb DM) ipratropium 0.5 mg-albuterol 3 mg 3 ml inhalation BID PRN shortness 08/22/23 11/27/24 (2.5 mg base)/3 mL nebulization of breath or wheezing soln urea 40 % topical cream 1 applic topical DAILY #28.35 grams 01/26/24 11/27/24 semaglutide 0.25 mg or 0.5 mg (2 0.5 mg subcut QWEEK 02/29/24 11/27/24 mg/3 mL) subcutaneous pen injector (Ozempic) dextran 70-hypromellose eye drops 1 drp ophthalmic (eye) Q2H PRN 03/13/24 11/27/24 in a dropperette (Artificial Tears (PF) drops in a dropperette) cholecalciferol (vitamin D3) 50 50 mcg PO DAILY 03/19/24 11/27/24 mcg (2,000 unit) tablet guaifenesin 600 mg tablet, 600 mg PO BID 03/19/24 11/27/24 extended release 12 hr (Mucus Relief ER) calcium carbonate 1,000 mg PO Q3-5H PRN 05/23/24 11/27/24 albuterol sulfate 90 mcg/actuation 2 puff inhalation Q4H PRN 06/20/24 11/27/24 aerosol inhaler shortness of breath or wheezing #8.5 grams bisacodyl 5 mg tablet 10 mg PO DAILY PRN 06/20/24 11/27/24 melatonin 3 mg capsule 6 mg PO HS PRN 09/26/24 11/27/24 spironolactone 25 mg tablet 50 mg PO .daily' 09/26/24 11/27/24 duloxetine 20 mg capsule,delayed 20 mg PO QDAY 11/12/24 11/27/24 release sprinkle empagliflozin 10 mg tablet 10 mg PO DAILY 11/12/24 11/27/24 (Jardiance) insulin glargine 100 unit/mL (3 55 unit subcut BID 11/12/24 11/27/24 mL) subcutaneous pen (Lantus Solostar U-100 Insulin) torsemide 20 mg tablet See Rx Instructions PO .COMPLEX 11/12/24 11/27/24 ropinirole 2 mg tablet 2 mg PO DAILY 11/16/24 11/27/24 benzonatate 100 mg capsule 100 mg PO DAILY 11/27/24 11/27/24 cephalexin 500 mg capsule 500 mg PO BID 7 days #14 caps 11/27/24 metoprolol succinate 50 mg 50 mg PO DAILY 11/27/24 11/27/24 tablet,extended release 24 hr Previous Rx's ?Medication ?Instructions ?Recorded urea 40 % topical cream 1 applic topical DAILY #28.35 grams 01/26/24 albuterol sulfate 90 mcg/actuation 2 puff inhalation Q4H PRN 06/20/24 aerosol inhaler shortness of breath or wheezing #8.5 grams cephalexin 500 mg capsule 500 mg PO BID 7 days #14 caps 11/27/24 Allergies Allergy/AdvReac Type Severity Reaction Status Date / Time No Known Allergies Allergy Verified 11/07/24 09:38 General Stated Complaint: Cellulitis JOLEEN: 3 Exam Narrative Exam Narrative: General Appearance: Alert and oriented. Vital signs: Within normal limits. HEENT: No CVA tenderness, bruising, or head trauma. Respiratory: Within normal limits. Gastrointestinal: No anterior abdominal bruising, tenderness, rebound, or guarding. Back, Musculoskeletal: Left hip: mild tenderness, no crepitus. Extremities: Left inner thigh: 2x2 inch mass, suspected hematoma, no crepitus. Distal pulses intact in all extremities, no significant tenderness to foot or ankle. Skin: Warm and dry, no rash. Neurological: Normal. Course Vital Signs Vital signs: Vital Signs Temperature 36.6 C 11/27/24 09:50 Pulse 50 L 11/27/24 09:50 Respiratory Rate 20 11/27/24 09:50 Blood Pressure 108/42 L 11/27/24 09:50 Pulse Oximetry 96 11/27/24 09:50 Temperature 36.5 C 11/27/24 12:42 Temperature Source Tympanic 11/27/24 12:42 Pulse 46 L 11/27/24 12:42 Pulse Rhythm Regular 11/27/24 11:36 Respiratory Rate 18 11/27/24 12:42 Respiratory Effort Normal 11/27/24 10:42 Respiratory Depth Normal 11/27/24 11:36 Respiratory Pattern Normal 11/27/24 11:36 Blood Pressure 106/43 L 11/27/24 12:42 Blood Pressure Mean 64 11/27/24 12:42 Blood Pressure Position Supine 11/27/24 09:50 Pulse Oximetry 99 11/27/24 12:42 Oxygen Delivery Method Room Air 11/27/24 12:42 Oxygen Flow Rate 0 11/27/24 12:42 Pain Level 8 11/27/24 10:47 Comment pt reports Pain just below the left knee 11/27/24 09:50 Lab/Test Results Lab/Test Results: Laboratory Tests Range/Units 11/27/24 11/27/24 10:20 10:51 WBC (4.4-10.8) 10^3/uL 12.11 H RBC (3.93-5.22) 10^6/uL 5.01 Hgb (11.2-15.7) g/dL 16.0 H Hct (36.0-46.0) % 48.0 H MCV (80-95) fL 96 H MCH (27.0-33.0) pg 31.9 MCHC (32.0-36.0) % 33.3 RDW (11.7-14.6) % 14.1 Plt Count (130-400) 10^3/uL 223 MPV (8.0-11.0) fL 10.3 Immature Gran % % 0.5 Neutrophils % % 80.3 Lymphocytes % % 10.9 Monocytes % % 7.1 Eosinophils % % 0.7 Basophils % % 0.5 Nucleated RBC % (0.0-0.3) % 0.0 Absolute Neutrophils (1.2-6.7) 10^3/uL 9.72 H Absolute Lymphocytes (1.2-3.4) 10^3/uL 1.32 Absolute Monocytes (0.1-0.8) 10^3/uL 0.86 H Absolute Eosinophils (0.0-0.7) 10^3/uL 0.08 Absolute Basophils (0.0-0.2) 10^3/uL 0.06 ESR (0-30) mm/hr 14 Sodium Cancelled 131 L Potassium Cancelled 4.6 Chloride Cancelled 95 L Carbon Dioxide Cancelled 24.8 Anion Gap Cancelled 11.2 H BUN Cancelled 69 H Creatinine Cancelled 1.8 H Est GFR (CKD-EPI 2020) Cancelled 29.57 Glucose Cancelled 268 H Calcium Cancelled 9.9 Total Bilirubin Cancelled 0.7 AST Cancelled 19 ALT Cancelled 22 Alkaline Phosphatase Cancelled 141 H C-Reactive Protein Cancelled 0.62 H Total Protein Cancelled 8.2 Albumin Cancelled 3.9 Medical Decision Making Imaging Ultrasound of left lower extremity showed no evidence of acute DVT. X-ray of left hip and pelvis did not show acute fracture. Initial Assessment: 74-year-old female from local shelter with left hip pain and possible cellulitis versus abscess. Fell 2 weeks ago, pain in previously replaced left hip, and mass on left inner calf noticed by staff. Differential Diagnosis: - Left hip pain: Fell 2 weeks ago, pain in previously replaced left hip. X-ray showed no acute fracture. Anticoagulated. Advised Tylenol for pain. - Possible cellulitis vs. abscess on left inner calf: Painful mass noted by staff, increased erythema. Ultrasound showed no acute DVT. Aspiration revealed hematoma, no abscess. Initiate Keflex. If pain persists, refer to surgery. Possible biopsy if condition persists. ED Course: - Ultrasound ordered and reviewed without evidence of acute DVT in left lower extremity. - X-ray of left hip and pelvis reviewed, no acute fracture. - Aspirated mass on left inner calf, filled with blood, suspected hematoma. - Initiated Keflex. - Encouraged Tylenol. - Return precautions reviewed. Final Assessment: Patient stable for discharge home. Pain in left hip managed with Tylenol. Hematoma in left inner calf, no abscess, treated with Keflex. Clinical Impression: - Left hip pain. - Hematoma on left inner calf. Disposition: - Discharge: Stable for discharge home. MDM Components Evaluation: - Number of Differential Diagnoses or Management Options: Left hip pain, possible cellulitis vs. abscess on left inner calf. - Amount and Complexity of Data Reviewed: Ultrasound, X-ray, aspiration results. - Risk of Complication and Morbidity or Mortality: Anticoagulated patient, risk of hematoma complications. Quality:SDOH Health Related Social Needs: No Data to Display PFSH All Active Problems (Updated 11/27/24 @ 12:05 by SHERI Tesfaye) Acute hip pain (Acute) Mass of leg (Acute) Abnormal chest x-ray (Acute) Abnormal PFTs (Acute) Onychomycosis (Acute) Venous insufficiency (Acute) Chronic pain (Chronic) Leg edema (Acute) Advanced care planning/counseling discussion (Acute) Onycholysis (Acute) Mixed conductive and sensorineural hearing loss, unspecified (Acute) Otosclerosis of both ears (Acute) Encounter for competency evaluation (Acute) Periprosthetic hip fracture (Acute) Left hip Charcot's joint, left ankle and foot (Acute ~04/2019) Closed fracture of ankle (Acute) Vitamin D deficiency (Chronic 05/07/15) Sciatica (Chronic) right; xray from 02/10 showed scattered spondylosis ant L4-5 on the left and mid lumbar scoliosis convex to the right Polycythemia (Chronic 03/08/17) Otosclerosis (Chronic 10/14/14) Osteoarthritis (Chronic) right shoulder AC-DJD, Glenohumoral jt. 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 quit in 1995 after approximately 30 pack years Insomnia (Chronic) Left knee DJD (Chronic) DJD of shoulder (Chronic) a. on right Arthritis (Chronic) Medical History (Updated 11/27/24 @ 12:05 by SHERI Tesfaye) Chest pain Palliative care encounter Depression Atrial fibrillation Hyperlipidemia Morbid obesity Essential hypertension (06/22/13) Pulmonary hypertension (04/13/17) Transient ischemic attack Hypothyroidism (01/09/13) Type 2 diabetes mellitus with diabetic neuropathy (05/13/15) SEEN ENDOCRINE AT [facility] [place] Chronic kidney disease Chronic heart failure with preserved ejection fraction Atherosclerosis of artery of both lower extremities Pulmonary fibrosis Surgical History History of Achilles tendon repair Amputated toe of right foot PROCEDURES REPAIR OF INTESTINE NEC puncture during colonoscopy Colonoscopy - MAC (~2003) Extraction of cataract 04/15/17 DR. ARRIETA; LEFT EYE 04/29/17 DR. ARRIETA; RIGHT EYE Amputation RIGHT SECOND AND THIRD TOES DUE TO DIABETIC ULCERS WITH CELLULITIS;11/14/17 DR. MAI Family History Mother Neoplasm LUNG Father Heart disease Brother Heart disease Sister No problems noted. Grandfather Heart disease Grandfather Heart disease Grandmother Diabetes Grandmother Diabetes Sister No problems noted. Sister No problems noted. Sister Diabetes Sister No problems noted. Brother No problems noted. Brother No problems noted. Social History Smoking/Tobacco Use Status: Former Tobacco Use Quit Date: 09/26/93 Smoking risk assessment performed?: Yes Alcohol Intake: never Drug use: Rarely Substance use type: does not use Housing: shelter current occupation: lives @ [employer] Current gender identity: female Do you feel safe at home: Yes Do you feel safe in your relationship?: Yes
== END 2024-11-27 13:27 | disposition home or self-care (01) ==
PROVIDERS: Emergency Provider Physician Assistant
DX: M25.552 Pain in left hip (principal); M71.22 Synovial cyst of popliteal space [Baker], left knee; M22.42 Chondromalacia patellae, left knee; R22.42 Localized swelling, mass and lump, left lower limb; E11.22 Type 2 diabetes mellitus with diabetic chronic kidney disease; I13.0 Hypertensive heart and chronic kidney disease with heart failure and stage 1 through stage 4 chronic kidney disease, or unspecified chronic kidney disease; N18.9 Chronic kidney disease, unspecified; I50.9 Heart failure, unspecified; E78.5 Hyperlipidemia, unspecified; E03.9 Hypothyroidism, unspecified; Z86.73 Personal history of transient ischemic attack (TIA), and cerebral infarction without residual deficits; Z79.4 Long term (current) use of insulin; Z79.84 Long term (current) use of oral hypoglycemic drugs; Z79.85 Long-term (current) use of injectable non-insulin antidiabetic drugs; Z79.01 Long term (current) use of anticoagulants; Z87.891 Personal history of nicotine dependence; Z96.642 Presence of left artificial hip joint; W18.39XA Other fall on same level, initial encounter; Y92.098 Other place in other non-institutional residence as the place of occurrence of the external cause
CPT/HCPCS: 36415; 76881; 80053; 85652; 99285; 73502; 85025; 86140; 93971; 99284

== ENCOUNTER → 2024-12-06 12:58 | Outpatient (BNVA) | payer MEDICARE, MEDICAID, SELFPAY | PROVIDERS: PCP Nurse Practitioner Gerontology; Referring Provider Nurse Practitioner Gerontology; Visit Provider Podiatrist | DX: E11.8 Type 2 diabetes mellitus with unspecified complications (principal); I70.203 Unspecified atherosclerosis of native arteries of extremities, bilateral legs; I87.2 Venous insufficiency (chronic) (peripheral); R60.0 Localized edema; E11.40 Type 2 diabetes mellitus with diabetic neuropathy, unspecified; Z79.4 Long term (current) use of insulin; B35.1 Tinea unguium; I73.89 Other specified peripheral vascular diseases; S80.12XA Contusion of left lower leg, initial encounter; X58.XXXA Exposure to other specified factors, initial encounter; Z89.421 Acquired absence of other right toe(s); Z79.01 Long term (current) use of anticoagulants | CPT/HCPCS: 99213 ==

== ENCOUNTER → 2024-12-14 10:29 | Outpatient (BNVA) | payer MEDICARE, MEDICAID, SELFPAY | PROVIDERS: PCP Nurse Practitioner Gerontology; Referring Provider Nurse Practitioner Gerontology; Visit Provider Physical Therapy Assistant | DX: S80.12XA Contusion of left lower leg, initial encounter (principal); E11.8 Type 2 diabetes mellitus with unspecified complications; I70.203 Unspecified atherosclerosis of native arteries of extremities, bilateral legs; I87.2 Venous insufficiency (chronic) (peripheral); R60.9 Edema, unspecified; E11.40 Type 2 diabetes mellitus with diabetic neuropathy, unspecified; Z79.4 Long term (current) use of insulin; Z89.429 Acquired absence of other toe(s), unspecified side; X58.XXXA Exposure to other specified factors, initial encounter | CPT/HCPCS: 99213 ==

== ENCOUNTER → 2025-01-07 12:53 | Outpatient (BNVA) | payer MEDICARE, MEDICAID, SELFPAY | PROVIDERS: PCP Nurse Practitioner Gerontology; Referring Provider Nurse Practitioner Gerontology; Visit Provider Podiatrist | DX: M79.671 Pain in right foot (principal); M79.672 Pain in left foot; E11.40 Type 2 diabetes mellitus with diabetic neuropathy, unspecified; I70.203 Unspecified atherosclerosis of native arteries of extremities, bilateral legs; I87.2 Venous insufficiency (chronic) (peripheral); R60.0 Localized edema; Z79.4 Long term (current) use of insulin; Z89.429 Acquired absence of other toe(s), unspecified side; I73.89 Other specified peripheral vascular diseases; S80.12XA Contusion of left lower leg, initial encounter; B35.1 Tinea unguium; X58.XXXA Exposure to other specified factors, initial encounter | CPT/HCPCS: 99213 ==

== ENCOUNTER 2025-01-15 12:34 | Emergency (ER) | payer MEDICARE, MEDICAID, SELFPAY ==
[2025-01-15 12:20] VITALS: BP 118/62; PULSE 46; RESP 16; TEMP 36.6; O2SAT 96
[2025-01-15 13:06] VITALS: BP 113/51; PULSE 44; RESP 18; O2SAT 97
[2025-01-15 13:37] LABS: Abs Immature Grans 0.12 10^3/uL (0.0-0.06); HCT 49.1 % (36.0-46.0); HGB 15.9 g/dL (11.2-15.7); Immature Grans % 1.0 %; MCH 31.0 pg (27.0-33.0); MCHC 32.4 % (32.0-36.0); MCV 96 fL (80-95); MPV 9.8 fL (8.0-11.0); Platelet Count 264 10^3/uL (130-400); RBC 5.13 10^6/uL (3.93-5.22); RDW 13.8 % (11.7-14.6); RDW-SD 48.4 fL; WBC 12.05 10^3/uL (4.4-10.8)
[2025-01-15 13:41] LABS: ESR 11 mm/hr (0-30)
[2025-01-15 13:54] LABS: ALT 27 U/L (14-59); AST 20 U/L (15-37); Albumin 3.8 g/dL (3.4-5.0); Alkaline Phosphatase 125 U/L (46-116); Anion Gap 9.1 mmol/L (3-11); BUN 54 mg/dL (7-18); Bilirubin, Total 0.8 mg/dL (0.2-1.0); CO2 31.9 mmol/L (21.0-32.0); Calcium 9.1 mg/dL (8.5-10.1); Chloride 95 mmol/L (98-107); Estimated GFR 34.05 (mL/min/1.73m2); Glucose 168 mg/dL (74-106); Magnesium 2.6 mg/dL (1.8-2.4); Potassium 4.1 mmol/L (3.5-5.1); Sodium 136 mmol/L (136-145); Total Protein 8.0 g/dL (6.4-8.2)
[2025-01-15 13:58] LABS: C-Reactive Protein < 0.50 mg/dL (<or=0.5)
--- NOTE | 2025-01-15 14:03 | W.ED.GENAD ---
Discharge Plan Discharge Details Chief Complaint: Cellulitis Primary Care Provider: Vanessa Beverly ED Provider: Luci Cheung Home Meds and New Rx's Prescriptions: No Action ropinirole 2 mg tablet 2 mg PO DAILY cholecalciferol (vitamin D3) 50 mcg (2,000 unit) tablet 50 mcg PO DAILY guaifenesin [Mucus Relief ER] 600 mg tablet extended release 12hr 600 mg PO BID Ozempic 0.25 mg or 0.5 mg (2 mg/3 mL) pen injector 0.5 mg subcut QWEEK polyethylene glycol 3350 [Miralax] 17 gram/dose powder 17 g PO DAILY bisacodyl 5 mg tablet 10 mg PO DAILY PRN albuterol sulfate 90 mcg/actuation HFA aerosol inhaler 2 puff INHALATION Q4H PRN (Reason: shortness of breath or wheezing) Qty: 8.5 12RF docusate sodium 100 mg capsule 100 mg PO QHS levothyroxine 75 mcg capsule 75 mcg PO HS insulin glargine [Lantus Solostar U-100 Insulin] 100 unit/mL (3 mL) insulin pen 55 unit SUBCUT BID Patient Comments: 55 units at bedtime as well Jardiance 10 mg tablet 10 mg PO DAILY torsemide 20 mg tablet See Rx Instructions PO .COMPLEX Rx Instructions: orally; Med list from [facility] 80mg BID. duloxetine 20 mg capsule, delayed rel sprinkle 20 mg PO QDAY fluticasone propionate [Flonase Allergy Relief] 50 mcg/actuation [place],Suspension 2 spray INTRANASAL BID insulin lispro [Humalog U-100 Insulin] 100 unit/mL solution 2 - 12 unit subcut TID Patient Comments: hold if BS < 100 Rx Instructions: 201-250 = 2 units 251-300 = 4 units 301-350 = 6 units 351-400 = 8 units 401-450 = 10 units 451-500 = 12 units Trelegy Ellipta 100-62.5-25 mcg Blister With Device 1 inh INHALATION DAILY magnesium oxide 400 mg magnesium Tablet 500 mg PO DAILY Artificial Tears (PF) Dropperette 1 drp ophthalmic (eye) Q2H PRN melatonin 3 mg capsule 6 mg PO HS PRN spironolactone 25 mg tablet 50 mg PO .daily' methocarbamol 500 mg tablet 500 mg PO TID calcium carbonate-vitamin D3 [Calcium 600 + D(3)] 600 mg(1,500mg) -400 unit Tablet 1 tab PO BID acetaminophen [Tylenol] 325 mg tablet 1,000 mg PO TID Eliquis 5 mg tablet 5 mg PO BID omeprazole 20 mg Capsule,Delayed Release(Dr/Ec) 20 mg PO DAILY benzonatate 100 mg capsule 100 mg PO BID metoprolol succinate 50 mg tablet extended release 24 hr 50 mg PO DAILY HPI General Date/Time Provider Initiated Documentation: 01/15/25 13:05. HPI Narrative: Madison is a 74-year-old female who presents to the emergency department from the for evaluation of right lower leg cellulitis. Symptoms initially began 12/07/2024 with pain in the right leg after sustaining a skin tear while transferring herself from chair to table at the doctor's office. She reports sudden change in symptoms recently with drainage of bloody fluid from the skin opening and constant intense pain and swelling worsening over the past few days, and leaking. Injured leg at doctor's office on a metal bar. Denies systemic symptoms such as fever/chills, change in baseline low energy, change in appetite, change in baseline dizziness, change in baseline shortness of breath, nausea/vomiting, change in bowel or bladder function. PMH significant for chronic atrial fibrillation, chronic pulmonary edema, type 2 diabetes mellitus, and pulmonary hypertension. She is DNR and DNI Related Data Home Medications ?Medication ?Instructions ?Recorded ?Confirmed calcium 600 mg (as 1 tab PO BID 08/26/20 01/15/25 carbonate)-vitamin D3 10 mcg (400 unit) tablet (Calcium 600 + D(3)) apixaban 5 mg tablet (Eliquis) 5 mg PO BID 10/07/20 01/15/25 fluticasone propionate 50 2 spray intranasal BID 03/06/21 01/15/25 mcg/actuation nasal spray,suspension (Flonase Allergy Relief) polyethylene glycol 3350 17 17 g PO DAILY 02/23/22 01/15/25 gram/dose oral powder (Miralax) omeprazole 20 mg capsule,delayed 20 mg PO DAILY 04/22/22 01/15/25 release fluticasone fur. 100 mcg-umeclid 1 inh inhalation DAILY 06/13/22 01/15/25 62.5 mcg-vilant 25 mcg inhalat.powder (Trelegy Ellipta) magnesium oxide 500 mg PO DAILY 06/13/22 01/15/25 docusate sodium 100 mg capsule 100 mg PO QHS 08/23/22 01/15/25 levothyroxine 75 mcg capsule 75 mcg PO HS 08/23/22 01/15/25 insulin lispro 100 unit/mL 2 - 12 unit subcut TID 11/09/22 01/15/25 subcutaneous solution (Humalog U-100 Insulin) acetaminophen 325 mg tablet 1,000 mg PO TID 08/22/23 01/15/25 (Tylenol) semaglutide 0.25 mg or 0.5 mg (2 0.5 mg subcut QWEEK 02/29/24 01/15/25 mg/3 mL) subcutaneous pen injector (Ozempic) dextran 70-hypromellose eye drops 1 drp ophthalmic (eye) Q2H PRN 03/13/24 01/15/25 in a dropperette (Artificial Tears (PF) drops in a dropperette) cholecalciferol (vitamin D3) 50 50 mcg PO DAILY 03/19/24 01/15/25 mcg (2,000 unit) tablet guaifenesin 600 mg tablet, 600 mg PO BID 03/19/24 01/15/25 extended release 12 hr (Mucus Relief ER) albuterol sulfate 90 mcg/actuation 2 puff inhalation Q4H PRN 06/20/24 01/15/25 aerosol inhaler shortness of breath or wheezing #8.5 grams bisacodyl 5 mg tablet 10 mg PO DAILY PRN 06/20/24 01/15/25 melatonin 3 mg capsule 6 mg PO HS PRN 09/26/24 01/15/25 spironolactone 25 mg tablet 50 mg PO .daily' 09/26/24 01/15/25 duloxetine 20 mg capsule,delayed 20 mg PO QDAY 11/12/24 01/15/25 release sprinkle empagliflozin 10 mg tablet 10 mg PO DAILY 11/12/24 01/15/25 (Jardiance) insulin glargine 100 unit/mL (3 55 unit subcut BID 11/12/24 01/15/25 mL) subcutaneous pen (Lantus Solostar U-100 Insulin) torsemide 20 mg tablet See Rx Instructions PO .COMPLEX 11/12/24 01/15/25 ropinirole 2 mg tablet 2 mg PO DAILY 11/16/24 01/15/25 benzonatate 100 mg capsule 100 mg PO BID 11/27/24 01/15/25 metoprolol succinate 50 mg 50 mg PO DAILY 11/27/24 01/15/25 tablet,extended release 24 hr methocarbamol 500 mg tablet 500 mg PO TID 01/15/25 01/15/25 Previous Rx's ?Medication ?Instructions ?Recorded albuterol sulfate 90 mcg/actuation 2 puff inhalation Q4H PRN 06/20/24 aerosol inhaler shortness of breath or wheezing #8.5 grams Allergies Allergy/AdvReac Type Severity Reaction Status Date / Time No Known Allergies Allergy Verified 01/15/25 12:27 General Stated Complaint: Cellulitis JOLEEN: 3 Exam Narrative Exam Narrative: General Appearance: Alert and oriented, in no acute distress. Easily conversational. Vital signs: Within normal limits, patient has bradycardia per baseline Respiratory: No change in breathing, able to speak in full sentences. Skin: 3 cm x 3 cm area of ecchymosis to right calf, mild surrounding redness, swelling, and pain on palpation. Patient does have bilateral venous stasis skin changes Psychiatric: Normal. Course Vital Signs Vital signs: Vital Signs Temperature 36.6 C 01/15/25 12:20 Pulse 46 L 01/15/25 12:20 Respiratory Rate 16 01/15/25 12:20 Blood Pressure 118/62 01/15/25 12:20 Pulse Oximetry 96 01/15/25 12:20 Temperature 36.6 C 01/15/25 12:20 Temperature Source Tympanic 01/15/25 12:20 Pulse 44 L 01/15/25 13:06 Respiratory Rate 18 01/15/25 13:06 Blood Pressure 113/51 L 01/15/25 13:06 Blood Pressure Mean 71 01/15/25 13:06 Blood Pressure Position Sitting 01/15/25 12:20 Pulse Oximetry 97 01/15/25 13:06 Oxygen Delivery Method Room Air 01/15/25 13:06 Oxygen Flow Rate 0 01/15/25 13:06 Pain Level 10 01/15/25 12:20 Lab/Test Results Lab/Test Results: Laboratory Tests Range/Units 01/15/25 13:25 WBC (4.4-10.8) 10^3/uL 12.05 H RBC (3.93-5.22) 10^6/uL 5.13 Hgb (11.2-15.7) g/dL 15.9 H Hct (36.0-46.0) % 49.1 H MCV (80-95) fL 96 H MCH (27.0-33.0) pg 31.0 MCHC (32.0-36.0) % 32.4 RDW (11.7-14.6) % 13.8 Plt Count (130-400) 10^3/uL 264 MPV (8.0-11.0) fL 9.8 Immature Gran % % 1.0 Neutrophils % % 67.9 Lymphocytes % % 20.8 Monocytes % % 8.5 Eosinophils % % 1.2 Basophils % % 0.6 Nucleated RBC % (0.0-0.3) % 0.0 Absolute Neutrophils (1.2-6.7) 10^3/uL 8.18 H Absolute Lymphocytes (1.2-3.4) 10^3/uL 2.51 Absolute Monocytes (0.1-0.8) 10^3/uL 1.02 H Absolute Eosinophils (0.0-0.7) 10^3/uL 0.14 Absolute Basophils (0.0-0.2) 10^3/uL 0.07 ESR (0-30) mm/hr 11 Sodium (136-145) mmol/L 136 Potassium (3.5-5.1) mmol/L 4.1 Chloride (98-107) mmol/L 95 L Carbon Dioxide (21.0-32.0) mmol/L 31.9 Anion Gap (3-11) mmol/L 9.1 BUN (7-18) mg/dL 54 H Creatinine (0.55-1.02) mg/dL 1.6 H Est GFR (CKD-EPI 2020) (mL/min/1.73m2) 34.05 Glucose (74-106) mg/dL 168 H Calcium (8.5-10.1) mg/dL 9.1 Magnesium (1.8-2.4) mg/dL 2.6 H Total Bilirubin (0.2-1.0) mg/dL 0.8 AST (15-37) U/L 20 ALT (14-59) U/L 27 Alkaline Phosphatase (46-116) U/L 125 H C-Reactive Protein (<or=0.5) mg/dL < 0.50 Total Protein (6.4-8.2) g/dL 8.0 Albumin (3.4-5.0) g/dL 3.8 Medical Decision Making Initial Assessment: 74-year-old female with chronic A-fib, chronic pulmonary edema, T2DM, and pulmonary hypertension presents with cellulitis on the right leg. Lesion is 3 cm x 3 cm, swollen, red, and leaking. Constant pain since injury on 12/07/2024. ED Course: - Blood work to assess systemic response to infection - Leg scan to determine extent of cellulitis/presence of fluid collection I independently interpreted the following tests: CBC notable for mild leukocytosis, white cell count 12.05. This is relatively unchanged from previous. Mild hypomagnesemia, magnesium 2.6. CMP shows no change in baseline kidney function. Sed rate and CRP both unremarkable. I did review paperwork sent by the [facility], patient was recently treated for radiculopathy with prednisone 40 mg daily from 74-7 12/28/2024. Handoff report given to Jia Read [employer] ATMOSPHERIC FURNACE, evening ELSA. CT pending Patient consented to the use of NKIKI PFSH All Active Problems Hematoma of left lower leg (Acute) PAD (peripheral artery disease) (Acute) Abnormal chest x-ray (Acute) Abnormal PFTs (Acute) Onychomycosis (Acute) Venous insufficiency (Acute) Chronic pain (Chronic) Leg edema (Acute) Advanced care planning/counseling discussion (Acute) Onycholysis (Acute) Mixed conductive and sensorineural hearing loss, unspecified (Acute) Otosclerosis of both ears (Acute) Encounter for competency evaluation (Acute) Periprosthetic hip fracture (Acute) Left hip Charcot's joint, left ankle and foot (Acute ~04/2019) Closed fracture of ankle (Acute) Vitamin D deficiency (Chronic 05/07/15) Sciatica (Chronic) right; xray from 02/10 showed scattered spondylosis ant L4-5 on the left and mid lumbar scoliosis convex to the right Polycythemia (Chronic 03/08/17) Otosclerosis (Chronic 10/14/14) Osteoarthritis (Chronic) right shoulder AC-DJD, Glenohumoral jt. 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 quit in 1995 after approximately 30 pack years Insomnia (Chronic) Left knee DJD (Chronic) DJD of shoulder (Chronic) a. on right Arthritis (Chronic) Medical History Atherosclerosis of artery of both lower extremities Chronic heart failure with preserved ejection fraction Chronic kidney disease Chest pain Hypothyroidism (01/09/13) Type 2 diabetes mellitus with diabetic neuropathy (05/13/15) SEEN ENDOCRINE AT [facility] Transient ischemic attack Pulmonary hypertension (04/13/17) Essential hypertension (06/22/13) Atrial fibrillation Depression Hyperlipidemia Morbid obesity Pulmonary fibrosis Palliative care encounter Surgical History Amputated toe of right foot History of Achilles tendon repair PROCEDURES REPAIR OF INTESTINE NEC puncture during colonoscopy Colonoscopy - MAC (~2003) Extraction of cataract 04/15/17 DR. ARRIETA; LEFT EYE 04/29/17 DR. ARRIETA; RIGHT EYE Amputation RIGHT SECOND AND THIRD TOES DUE TO DIABETIC ULCERS WITH CELLULITIS;11/14/17 DR. MAI Family History Mother Neoplasm LUNG Father Heart disease Brother Heart disease Sister No problems noted. Grandfather Heart disease Grandfather Heart disease Grandmother Diabetes Grandmother Diabetes Sister No problems noted. Sister No problems noted. Sister Diabetes Sister No problems noted. Brother No problems noted. Brother No problems noted. Social History Smoking/Tobacco Use Status: Former Tobacco Use Quit Date: 09/26/93 Smoking risk assessment performed?: Yes Alcohol Intake: never Drug use: Rarely Substance use type: does not use Housing: long-term current occupation: lives @ [facility] [employer] Current gender identity: female Do you feel safe at home: Yes Do you feel safe in your relationship?: Yes
[2025-01-15] MEDS: Omnipaque 350 MG/ML 100 ML BTL IJ (15:10)
[2025-01-15] MEDS: Normal Saline - Diluent 50 ML VIAL IJ (15:10)
--- NOTE | 2025-01-15 15:16 | DI.CT_ITS ---
Exam(s) CT LOWER EXTREMITY RT W EXAM: CT LOWER EXTREMITY RT W CLINICAL HISTORY: cellulitis, acutely worsening. TECHNIQUE: Imaging Protocol: Axial computed tomography images with coronal and sagittal reformatted images were created and reviewed. CONTRAST MATERIAL: Intravenous contrast: Omnipaque 350 Contrast volume:100. COMPARISON: No exams were available for comparison FINDINGS: OSSEOUS: There are 2 screws across healed fracture of the medial malleolus and a single longtitudinally orientated screw in the distal fibula. There is no evidence of fracture and no evidence of osteomyelitis. SOFT TISSUES: There is minimal amount of increased fluid in the suprapatellar bursa medial aspect. There is also a small Nichols cyst in the medial popliteal fossa. There is no prominent knee joint effusion. There is no radiopaque foreign body and there is no gas in the soft tissues of the calf. There is a cellulitis pattern which is most prominent on the medial/posterior medial aspect of the calf in 1 area on the posterior medial aspect of the mid calf there is an area of thickened this subcutaneous density which measures approximately 3.4 cm AP by 1 cm wide by 3 cm craniocaudal. This may be epicenter of the infectious process. Cannot exclude this being a possible abscess despite the fact that there is no ring enhancement. There is no radiopaque foreign body at this level. There is generalized are muscle atrophy . IMPRESSION: Cellulitis-type pattern. However, most prominent focus of induration his in the posteromedial aspect of the cord of the mid calf. This measures approximately 3.4 x 1.0 x 3.0 cm. There is no radiopaque foreign body at this level and no gas in the soft tissues. Correlation with clinical findings recommended. Cannot exclude the possibly that this is an area of abscess despite absence of peripheral enhancement. RADIATION DOSE DELIVERED: 305.1mGy.cm Total DLP DATA REPOSITORY: All CT scans at this facility are submitted to the National Radiology Data Registry (NRDR) Dose Index Registry (DIR) with the [employer] (ACR). RADIATION OPTIMIZATION: All CT scans at this facility use at least one of these dose optimization techniques: automated exposure control; mA and/or kV adjustment per patient size (includes targeted exams where dose is matched to clinical indication); or iterative reconstruction.
--- NOTE | 2025-01-15 17:20 | W.EDPROG ---
Date of service: 01/15/25 Time of Service: 17:20 Medical Decision Making Care assumed from provider (Luci Seay NP) Please see their initial HPI, PE, and documentation. Discussed patient details and case and pending workup and disposition. Information relayed to me at signout was that patient needs further evaluation for possible abscess versus hematoma and cellulitis to the right lower extremity. Patient is hemodynamically stable, and alert and oriented and at baseline. CT right lower extremity with contrast shows a cellulitis type pattern with a prominent focus of induration in the posterior medial aspect of the cord of the mid calf. This measures approximately 3 x 1 x 3 cm please see official report. No peripheral enhancement noted on the CT. On exam she does have some erythema noted to her right lower extremity, erythema was marked. There is a bulging ecchymotic area with outer indurated area with some purulent drainage and serosanguineous drainage noted. Appears consistent with hematoma. Bedside ultrasound probe was placed to eval subcutaneous area. There is no swirl sign to indicate that this is infected or abscess like-fluid, however there is a hypoechoic fluid collection just under the skin, patient is on Eliquis so I am hesitant to I&D the area. Patient is a diabetic. I suspect hematoma. She has been on multiple other antibiotics in the last 5 months including azithromycin and ciprofloxacin and cephalexin. Will consider small needle aspiration to evaluate if this is fluid or purulent drainage. Verbally discussed risks and benefits with patient who understands and and is in agreement with the plan. Please see procedure note, no purulent drainage noted with needle aspiration, patient tolerated well. Compression bandage applied by ED staff post procedure. Nonadherent dressing applied by me. Dl wrap and ice pack ordered and will instruct staff to arrange transport back to the [facility]. Will order levofloxacin x 7 days. Patient remained hemodynamically stable, at baseline throughout the remainder of her stay. Patient discharged from department and transferred back to the [facility]. This text was generated using [employer] system, please disregard any oddities of phrase or misspellings. Medical Records Medical records reviewed: Yes I reviewed the patient's medical records. Lab Data Lab results reviewed: Yes I reviewed the patient's lab results. Labs: Laboratory Tests Range/Units 01/15/25 13:25 WBC (4.4-10.8) 10^3/uL 12.05 H RBC (3.93-5.22) 10^6/uL 5.13 Hgb (11.2-15.7) g/dL 15.9 H Hct (36.0-46.0) % 49.1 H MCV (80-95) fL 96 H MCH (27.0-33.0) pg 31.0 MCHC (32.0-36.0) % 32.4 RDW (11.7-14.6) % 13.8 Plt Count (130-400) 10^3/uL 264 MPV (8.0-11.0) fL 9.8 Immature Gran % % 1.0 Neutrophils % % 67.9 Lymphocytes % % 20.8 Monocytes % % 8.5 Eosinophils % % 1.2 Basophils % % 0.6 Nucleated RBC % (0.0-0.3) % 0.0 Absolute Neutrophils (1.2-6.7) 10^3/uL 8.18 H Absolute Lymphocytes (1.2-3.4) 10^3/uL 2.51 Absolute Monocytes (0.1-0.8) 10^3/uL 1.02 H Absolute Eosinophils (0.0-0.7) 10^3/uL 0.14 Absolute Basophils (0.0-0.2) 10^3/uL 0.07 ESR (0-30) mm/hr 11 Sodium (136-145) mmol/L 136 Potassium (3.5-5.1) mmol/L 4.1 Chloride (98-107) mmol/L 95 L Carbon Dioxide (21.0-32.0) mmol/L 31.9 Anion Gap (3-11) mmol/L 9.1 BUN (7-18) mg/dL 54 H Creatinine (0.55-1.02) mg/dL 1.6 H Est GFR (CKD-EPI 2020) (mL/min/1.73m2) 34.05 Glucose (74-106) mg/dL 168 H Calcium (8.5-10.1) mg/dL 9.1 Magnesium (1.8-2.4) mg/dL 2.6 H Total Bilirubin (0.2-1.0) mg/dL 0.8 AST (15-37) U/L 20 ALT (14-59) U/L 27 Alkaline Phosphatase (46-116) U/L 125 H C-Reactive Protein (<or=0.5) mg/dL < 0.50 Total Protein (6.4-8.2) g/dL 8.0 Albumin (3.4-5.0) g/dL 3.8 Exam Const General: cooperative and frail appearing Nutritional Appearance: average body habitus and well nourished Orientation: alert, awake and oriented x3 Resp Effort & Inspection: normal respiratory effort and able to speak in complete sentences Extrem Upper/lower leg/hip images:  1. Erythema, appears acute on chronic PVD. 2. Ecchymosis noted with central swelling consistent with hematoma. Procedure Abscess Drainage Date of Procedure: 01/15/25 Time of Procedure: 17:34 Provider that performed the procedure: Jia Read Standard Time Out Performed: Yes Patient Consented: Emergent Case Location of Exam: Lower extremity/right Indication: Pain, Redness, Swelling and Other (Ecchymosis). Sterility: Non Sterile. Procedure Prep: Hand hygiene and Chlohexidine. Technique used, needle aspiration (Needle aspiration attempted, bloody drainage noted, no purulent drainage noted 25-gauge needle. Nonadherent dressing and Dl wrap applied postprocedure. Patient tolerated well.). Irrigation: no irrigation Packing: None. Outcome: Unsuccessful Procedure Description/Note: I do suspect that this is a hematoma.. Discharge Plan Disposition Patient Disposition: [facility](SNF) Condition: Stable Discharge Details Clinical Impression: Hematoma of right lower leg, Cellulitis of right lower extremity, Venous insufficiency Primary Care Provider: Vanessa Beverly ED Provider: Jia Read Home Meds and New Rx's Prescriptions: New levofloxacin 750 mg tablet 750 mg PO DAILY 10 Days Qty: 10 0RF Rx Instructions: Take 1 tablet daily for the next 10 days No Action ropinirole 2 mg tablet 2 mg PO DAILY cholecalciferol (vitamin D3) 50 mcg (2,000 unit) tablet 50 mcg PO DAILY guaifenesin [Mucus Relief ER] 600 mg tablet extended release 12hr 600 mg PO BID Ozempic 0.25 mg or 0.5 mg (2 mg/3 mL) pen injector 0.5 mg subcut QWEEK polyethylene glycol 3350 [Miralax] 17 gram/dose powder 17 g PO DAILY bisacodyl 5 mg tablet 10 mg PO DAILY PRN albuterol sulfate 90 mcg/actuation HFA aerosol inhaler 2 puff INHALATION Q4H PRN (Reason: shortness of breath or wheezing) Qty: 8.5 12RF docusate sodium 100 mg capsule 100 mg PO QHS levothyroxine 75 mcg capsule 75 mcg PO HS insulin glargine [Lantus Solostar U-100 Insulin] 100 unit/mL (3 mL) insulin pen 55 unit SUBCUT BID Patient Comments: 55 units at bedtime as well Jardiance 10 mg tablet 10 mg PO DAILY torsemide 20 mg tablet See Rx Instructions PO .COMPLEX Rx Instructions: orally; Med list from [facility] 80mg BID. duloxetine 20 mg capsule, delayed rel sprinkle 20 mg PO QDAY fluticasone propionate [Flonase Allergy Relief] 50 mcg/actuation [place],Suspension 2 spray INTRANASAL BID insulin lispro [Humalog U-100 Insulin] 100 unit/mL solution 2 - 12 unit subcut TID Patient Comments: hold if BS < 100 Rx Instructions: 201-250 = 2 units 251-300 = 4 units 301-350 = 6 units 351-400 = 8 units 401-450 = 10 units 451-500 = 12 units Trelegy Ellipta 100-62.5-25 mcg Blister With Device 1 inh INHALATION DAILY magnesium oxide 400 mg magnesium Tablet 500 mg PO DAILY Artificial Tears (PF) Dropperette 1 drp ophthalmic (eye) Q2H PRN melatonin 3 mg capsule 6 mg PO HS PRN spironolactone 25 mg tablet 50 mg PO .daily' methocarbamol 500 mg tablet 500 mg PO TID calcium carbonate-vitamin D3 [Calcium 600 + D(3)] 600 mg(1,500mg) -400 unit Tablet 1 tab PO BID acetaminophen [Tylenol] 325 mg tablet 1,000 mg PO TID Eliquis 5 mg tablet 5 mg PO BID omeprazole 20 mg Capsule,Delayed Release(Dr/Ec) 20 mg PO DAILY benzonatate 100 mg capsule 100 mg PO BID metoprolol succinate 50 mg tablet extended release 24 hr 50 mg PO DAILY Discharge Instructions Instructions: Taking care of bruises, Cellulitis (Skin Infection), Adult ED Additional Instructions: At this time it does appear that you have a cellulitis or infection of your right lower extremity along with a hematoma to the middle of your calf. A needle aspiration was attempted with bloody discharge. Please apply Dl wrap and ice to the extremity for the next 3 to 5 days. Please take the levofloxacin daily as prescribed. You were given the first dose here in the emergency department. Please return to the ER for any worsening redness, fever, feeling sicker at any time, bleeding that is not controlled with pressure for 15 minutes or greater. Follow up with primary care provider in 3-5 days. Return to ED sooner if any worsening or concerns. Referrals: Vanessa Beverly NP [Primary Care Provider, Medicine] - 1 day Referral Note: ER cellulitis follow-up POCUS Exam (ED) Limited Soft Tissue Exam PROVIDER THAT PERFORMED THE STUDY: Jia Read
[2025-01-15] MEDS: levoFLOXacin 500 MG TAB PO (17:42)
[2025-01-15] MEDS: Silver Nitrate Stick 1 EACH (17:42)
[2025-01-15 18:20] VITALS: BP 126/92; PULSE 87; RESP 16; O2SAT 100
== END 2025-01-15 19:11 | disposition skilled nursing facility (03) ==
PROVIDERS: Nurse Practitioner Family; Emergency Provider Registered Nurse Emergency; PCP Nurse Practitioner Gerontology
DX: S80.11XA Contusion of right lower leg, initial encounter (principal); L03.115 Cellulitis of right lower limb; Z79.01 Long term (current) use of anticoagulants; X58.XXXA Exposure to other specified factors, initial encounter
CPT/HCPCS: 99284; 99285; 10160; 36415; 00123; 80053; 85652; 73701; 83735; 85025; 86140; J3490

== ENCOUNTER 2025-01-20 11:25 | Emergency (ER) | payer MEDICARE, MEDICAID, SELFPAY ==
[2025-01-20] VITALS (35 sets, daily range): BP systolic 84–124; BP diastolic 40–97; PULSE 48–71; RESP 13–22; TEMP 37; O2SAT 85–100
--- NOTE | 2025-01-20 11:15 | RT.EKG_ITS ---
APPROVED REPORT Exam: Resting ECG Reason for Exam: CP Patient Location: E HR:61 bpm ECG Measurements Heart Rate 61 AXIS TN [id number] P [id number] QRSd 82 QRS 47 QT 452 T 192 QTc 455 Conclusion Atrial fibrillation, rate 61 ST depression leads I, aVL, V4-V6 unchanged from priors No STEMI
--- NOTE | 2025-01-20 11:30 | DI.RAD_ITS ---
Exam(s) XR CHEST 2V PA LATERAL EXAM: XR CHEST 2V PA LATERAL CLINICAL HISTORY: Chest pain TECHNIQUE: 2D digital imaging was performed. Two views. COMPARISON: CR XR CHEST 2V PA LATERAL from 06/15/2023 CR,XR XR CHEST 2V PA LATERAL from 03/13/[address] CHEST WO from 05/01/2024 CR XR PORTABLE CHEST AP from 09/26/2024 FINDINGS: The exam is limited by under penetration. Monitoring leads overlie the chest. The lungs are poorly inflated on the lateral view. HEART: Normal size. Aorta: Not dilated. PULMONARY VASCULATURE: Normal. MEDIASTINUM: Unremarkable. LUNGS: No gross evidence of a focal consolidation. Chronic interstitial changes. PLEURAL SPACE: No pleural effusion or pneumothorax. BONE:Degenerative changes in the spine and shoulders. SOFT TISSUES: Unremarkable. IMPRESSION: Limited exam. No acute abnormality. The preliminary [facility] report was reviewed. DATA REPOSITORY: RADIATION DOSE DELIVERED:
[2025-01-20 11:53] LABS: Abs Immature Grans 0.11 10^3/uL (0.0-0.06); HCT 44.9 % (36.0-46.0); HGB 15.1 g/dL (11.2-15.7); Immature Grans % 0.8 %; MCH 31.3 pg (27.0-33.0); MCHC 33.6 % (32.0-36.0); MCV 93 fL (80-95); MPV 10.5 fL (8.0-11.0); Platelet Count 269 10^3/uL (130-400); RBC 4.83 10^6/uL (3.93-5.22); RDW 13.5 % (11.7-14.6); RDW-SD 46.4 fL; WBC 13.95 10^3/uL (4.4-10.8)
--- NOTE | 2025-01-20 12:02 | W.ED.GENAD ---
Discharge Plan Disposition Patient Disposition: Home Condition: Stable Discharge Details Clinical Impression: Chest pain, Atrial fibrillation with slow ventricular response Primary Care Provider: Vanessa Beverly ED Provider: Melina Waldrop Home Meds and New Rx's Prescriptions: No Action ropinirole 2 mg tablet 2 mg PO DAILY cholecalciferol (vitamin D3) 50 mcg (2,000 unit) tablet 50 mcg PO DAILY guaifenesin [Mucus Relief ER] 600 mg tablet extended release 12hr 600 mg PO BID Ozempic 0.25 mg or 0.5 mg (2 mg/3 mL) pen injector 0.5 mg subcut QWEEK polyethylene glycol 3350 [Miralax] 17 gram/dose powder 17 g PO DAILY bisacodyl 5 mg tablet 10 mg PO DAILY PRN albuterol sulfate 90 mcg/actuation HFA aerosol inhaler 2 puff INHALATION Q4H PRN (Reason: shortness of breath or wheezing) Qty: 8.5 12RF docusate sodium 100 mg capsule 100 mg PO QHS levothyroxine 75 mcg capsule 75 mcg PO HS insulin glargine [Lantus Solostar U-100 Insulin] 100 unit/mL (3 mL) insulin pen 55 unit SUBCUT BID Patient Comments: 55 units at bedtime as well Jardiance 10 mg tablet 10 mg PO DAILY torsemide 20 mg tablet See Rx Instructions PO .COMPLEX Rx Instructions: orally; Med list from [facility]&R states 80mg BID. duloxetine 20 mg capsule, delayed rel sprinkle 20 mg PO QDAY fluticasone propionate [Flonase Allergy Relief] 50 mcg/actuation [place],Suspension 2 spray INTRANASAL BID insulin lispro [Humalog U-100 Insulin] 100 unit/mL solution 2 - 12 unit subcut TID Patient Comments: hold if BS < 100 Rx Instructions: 201-250 = 2 units 251-300 = 4 units 301-350 = 6 units 351-400 = 8 units 401-450 = 10 units 451-500 = 12 units Trelegy Ellipta 100-62.5-25 mcg Blister With Device 1 inh INHALATION DAILY magnesium oxide 400 mg magnesium Tablet 500 mg PO DAILY Artificial Tears (PF) Dropperette 1 drp ophthalmic (eye) Q2H PRN melatonin 3 mg capsule 6 mg PO HS PRN spironolactone 25 mg tablet 50 mg PO .daily' methocarbamol 500 mg tablet 500 mg PO TID levofloxacin 750 mg tablet 750 mg PO DAILY 10 Days Qty: 10 0RF Rx Instructions: Take 1 tablet daily for the next 10 days calcium carbonate-vitamin D3 [Calcium 600 + D(3)] 600 mg(1,500mg) -400 unit Tablet 1 tab PO BID acetaminophen [Tylenol] 325 mg tablet 1,000 mg PO TID Eliquis 5 mg tablet 5 mg PO BID omeprazole 20 mg Capsule,Delayed Release(Dr/Ec) 20 mg PO DAILY benzonatate 100 mg capsule 100 mg PO BID metoprolol succinate 50 mg tablet extended release 24 hr 50 mg PO DAILY Discharge Instructions Instructions: Chest Pain, Adult ED Additional Instructions: You were seen in the emergency department today for evaluation of chest pain. In our department you had a full physical examination performed, had an EKG that did not show any signs of active damage to your heart or heart attack. Your laboratory studies including your cardiac enzymes were reassuring. Your blood pressure was on the low side even for your normal, and you received a small bolus of fluids to good effect. Your chest pain has resolved entirely and I do feel that it is reasonable for you to follow-up with your outpatient employment director, who may recommend repeat stress testing, ultrasound, or other assessments. Please continue to take all medications as prescribed, and return to the emergency department if your chest pain returns, you have shortness of breath, change in responsiveness, or any other symptoms that cause you concern. Thank you for allowing us to be part of your care. HPI General Mode of arrival: EMS. Date/Time Provider Initiated Documentation: 01/20/25 11:31. Limitations to Documentation: no limitations. Information obtained by: patient and old records reviewed. HPI Narrative: This is a 74-year-old female patient with a past medical history significant for atrial fibrillation, not on anticoagulation, history of arthritis, sleep apnea, pulmonary fibrosis, CHF, pulmonary hypertension, and a recent visit to the emergency department for cellulitis in the setting of a lower extremity injury, who is brought in by EMS with a complaint of chest pain since this morning. She reports that her pain is located in the center of her chest and does not radiate, she received aspirin and 3 doses of nitroglycerin with total resolution of her pain. She does endorse some ongoing pain in her lower extremities and has had nausea since initiation of antibiotics. She states that she is not experiencing any shortness of breath or cough, abdominal pain. Related Data Home Medications ?Medication ?Instructions ?Recorded ?Confirmed calcium 600 mg (as 1 tab PO BID 08/26/20 01/20/25 carbonate)-vitamin D3 10 mcg (400 unit) tablet (Calcium 600 + D(3)) apixaban 5 mg tablet (Eliquis) 5 mg PO BID 10/07/20 01/20/25 fluticasone propionate 50 2 spray intranasal BID 03/06/21 01/20/25 mcg/actuation nasal spray,suspension (Flonase Allergy Relief) polyethylene glycol 3350 17 17 g PO DAILY 02/23/22 01/20/25 gram/dose oral powder (Miralax) omeprazole 20 mg capsule,delayed 20 mg PO DAILY 04/22/22 01/20/25 release fluticasone fur. 100 mcg-umeclid 1 inh inhalation DAILY 06/13/22 01/20/25 62.5 mcg-vilant 25 mcg inhalat.powder (Trelegy Ellipta) magnesium oxide 500 mg PO DAILY 06/13/22 01/20/25 docusate sodium 100 mg capsule 100 mg PO QHS 08/23/22 01/20/25 levothyroxine 75 mcg capsule 75 mcg PO HS 08/23/22 01/20/25 insulin lispro 100 unit/mL 2 - 12 unit subcut TID 11/09/22 01/20/25 subcutaneous solution (Humalog U-100 Insulin) acetaminophen 325 mg tablet 1,000 mg PO TID 08/22/23 01/20/25 (Tylenol) semaglutide 0.25 mg or 0.5 mg (2 0.5 mg subcut QWEEK 02/29/24 01/20/25 mg/3 mL) subcutaneous pen injector (Ozempic) dextran 70-hypromellose eye drops 1 drp ophthalmic (eye) Q2H PRN 03/13/24 01/20/25 in a dropperette (Artificial Tears (PF) drops in a dropperette) cholecalciferol (vitamin D3) 50 50 mcg PO DAILY 03/19/24 01/20/25 mcg (2,000 unit) tablet guaifenesin 600 mg tablet, 600 mg PO BID 03/19/24 01/20/25 extended release 12 hr (Mucus Relief ER) albuterol sulfate 90 mcg/actuation 2 puff inhalation Q4H PRN 06/20/24 01/20/25 aerosol inhaler shortness of breath or wheezing #8.5 grams bisacodyl 5 mg tablet 10 mg PO DAILY PRN 06/20/24 01/20/25 melatonin 3 mg capsule 6 mg PO HS PRN 09/26/24 01/20/25 spironolactone 25 mg tablet 50 mg PO .daily' 09/26/24 01/20/25 duloxetine 20 mg capsule,delayed 20 mg PO QDAY 11/12/24 01/20/25 release sprinkle empagliflozin 10 mg tablet 10 mg PO DAILY 11/12/24 01/20/25 (Jardiance) insulin glargine 100 unit/mL (3 55 unit subcut BID 11/12/24 01/20/25 mL) subcutaneous pen (Lantus Solostar U-100 Insulin) torsemide 20 mg tablet See Rx Instructions PO .COMPLEX 11/12/24 01/20/25 ropinirole 2 mg tablet 2 mg PO DAILY 11/16/24 01/20/25 benzonatate 100 mg capsule 100 mg PO BID 11/27/24 01/20/25 metoprolol succinate 50 mg 50 mg PO DAILY 11/27/24 01/20/25 tablet,extended release 24 hr levofloxacin 750 mg tablet 750 mg PO DAILY Cellulitis 10 days 01/15/25 01/20/25 #10 tabs methocarbamol 500 mg tablet 500 mg PO TID 01/15/25 01/20/25 Previous Rx's ?Medication ?Instructions ?Recorded albuterol sulfate 90 mcg/actuation 2 puff inhalation Q4H PRN 06/20/24 aerosol inhaler shortness of breath or wheezing #8.5 grams levofloxacin 750 mg tablet 750 mg PO DAILY Cellulitis 10 days 01/15/25 #10 tabs Allergies Allergy/AdvReac Type Severity Reaction Status Date / Time No Known Allergies Allergy Verified 01/15/25 12:27 General Stated Complaint: Chest Pain JOLEEN: 3 Exam Narrative Exam Narrative: Gen: Awake and alert, in no apparent distress HEENT: Non-icteric sclera Neck: Supple Lungs: No apparent respiratory distress, normal respiratory effort. Lung sounds clear and equal bilaterally CV: Appears well perfused, heart with regular rate and irregularly irregular rhythm consistent with her diagnosis of atrial fibrillation. Chest wall is not tender to palpation and there are no overlying skin changes Abdomen: Non-distended, soft, nontender MSK: Moves 4 extremities without apparent limitation in ROM. The patient does have some chronic skin discoloration of the bilateral lower extremities consistent with her history of venous insufficiency. No significant swelling, redness, or tenderness to palpation. Skin: Visualized skin without rashes, cyanosis. Neuro: No obvious focal deficits or facial asymmetry. Speaks in full, clear sentences. Psych: Appropriate for situation. Course Vital Signs Vital signs: Vital Signs Temperature 37 C 01/20/25 11:50 Pulse 60 01/20/25 11:50 Respiratory Rate 21 01/20/25 11:50 Blood Pressure 124/69 01/20/25 11:50 Pulse Oximetry 96 01/20/25 11:50 Temperature 37 C 01/20/25 11:50 Temperature Source Tympanic 01/20/25 11:50 Pulse 60 01/20/25 11:50 Respiratory Rate 21 01/20/25 11:54 Respiratory Effort Normal 01/20/25 11:54 Respiratory Depth Normal 01/20/25 11:54 Respiratory Pattern Normal 01/20/25 11:54 Blood Pressure 124/69 01/20/25 11:50 Blood Pressure Position Supine 01/20/25 11:50 Pulse Oximetry 96 01/20/25 11:50 Oxygen Delivery Method Room Air 01/20/25 11:50 Oxygen Flow Rate 0 01/20/25 11:50 Pain Level 0 01/20/25 11:50 Lab/Test Results Lab/Test Results: Laboratory Tests Range/Units 01/20/25 11:40 WBC (4.4-10.8) 10^3/uL 13.95 H RBC (3.93-5.22) 10^6/uL 4.83 Hgb (11.2-15.7) g/dL 15.1 Hct (36.0-46.0) % 44.9 MCV (80-95) fL 93 MCH (27.0-33.0) pg 31.3 MCHC (32.0-36.0) % 33.6 RDW (11.7-14.6) % 13.5 Plt Count (130-400) 10^3/uL 269 MPV (8.0-11.0) fL 10.5 Immature Gran % % 0.8 Neutrophils % % 78.1 Lymphocytes % % 11.0 Monocytes % % 8.2 Eosinophils % % 1.5 Basophils % % 0.4 Nucleated RBC % (0.0-0.3) % 0.0 Absolute Neutrophils (1.2-6.7) 10^3/uL 10.89 H Absolute Lymphocytes (1.2-3.4) 10^3/uL 1.53 Absolute Monocytes (0.1-0.8) 10^3/uL 1.14 H Absolute Eosinophils (0.0-0.7) 10^3/uL 0.21 Absolute Basophils (0.0-0.2) 10^3/uL 0.06 Medical Decision Making This is a 74-year-old female patient presenting for evaluation of chest pain. My differential includes but is not limited to ACS including STEMI, NSTEMI, unstable angina, certainly considered arrhythmia, pericarditis/myocarditis, aortic pathology. Considered pulmonary abnormalities including pneumonia, bronchitis, pleural effusion, pulmonary edema, reactive airway disease, pneumothorax. The patient is without tachycardia, hypoxia, or a pleuritic component to his pain to significantly increase my concern for pulmonary embolism. No GI symptoms or vomiting to suggest Boerhaave's, esophagitis, peptic ulcer disease, pancreatitis. Considered musculoskeletal pathologies including costochondritis, chest wall pain. I am reassured the patient is currently chest pain-free. I obtained an EKG which shows an atrial fibrillation with a controlled ventricular response, baseline ST segment depression and T wave changes are noted and unchanged compared to priors, no evidence for active ischemia. We will obtain laboratory studies to include CBC, CMP, magnesium, troponin, BNP, and a chest x-ray. I will provide the patient with a dose of Zofran for her nausea. -I reviewed the patient's laboratory studies, which show a mild leukocytosis to 13.9, no anemia, or thrombocytopenia. The patient's chemistry panel shows a mild hyponatremia to 128, stable BUN at 53 but a slightly increased creatinine from baseline to 2.3. No evidence for liver dysfunction, troponin was negative and without delta increase on 1 hour recheck. BNP is within the patient's baseline. Chest x-ray reviewed and shows no acute abnormalities to explain the patient's symptoms. She remained chest pain-free though her blood pressure was slightly soft, and in the setting of a kidney function elevation I provided her with a small fluid bolus. She had improvement in her blood pressure and remained asymptomatic, tolerating oral intake, and is greatly desiring of discharge to home. I feel that this is reasonable given her reassuring workup, her ability to continue to take oral meds, and as she is able to follow-up with her outpatient employment director for reassessment. The patient was counseled extensively on return precautions, and at this time, the patient has had a full medical evaluation and is safe for discharge to home. They are hemodynamically stable, ambulatory, and tolerating PO. They are understanding of the follow-up plan and return precautions. They left our facility without incident. Melina Waldrop MD [facility] All Active Problems (Updated 01/20/25 @ 14:37 by Melina Waldrop MD) Atrial fibrillation with slow ventricular response (Acute) Chest pain (Acute) Cellulitis of right lower extremity (Acute) Hematoma of right lower leg (Acute) Hematoma of left lower leg (Acute) PAD (peripheral artery disease) (Acute) Abnormal chest x-ray (Acute) Abnormal PFTs (Acute) Onychomycosis (Acute) Venous insufficiency (Acute) Chronic pain (Chronic) Leg edema (Acute) Advanced care planning/counseling discussion (Acute) Onycholysis (Acute) Mixed conductive and sensorineural hearing loss, unspecified (Acute) Otosclerosis of both ears (Acute) Encounter for competency evaluation (Acute) Periprosthetic hip fracture (Acute) Left hip Charcot's joint, left ankle and foot (Acute ~04/2019) Closed fracture of ankle (Acute) Vitamin D deficiency (Chronic 05/07/15) Sciatica (Chronic) right; xray from 02/10 showed scattered spondylosis ant L4-5 on the left and mid lumbar scoliosis convex to the right Polycythemia (Chronic 03/08/17) Otosclerosis (Chronic 10/14/14) Osteoarthritis (Chronic) right shoulder AC-DJD, Glenohumoral jt. 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 quit in 1995 after approximately 30 pack years Insomnia (Chronic) Left knee DJD (Chronic) DJD of shoulder (Chronic) a. on right Arthritis (Chronic) Medical History Atherosclerosis of artery of both lower extremities Chronic heart failure with preserved ejection fraction Chronic kidney disease Chest pain Hypothyroidism (01/09/13) Type 2 diabetes mellitus with diabetic neuropathy (05/13/15) [place] [facility] [place]ient ischemic attack Pulmonary hypertension (04/13/17) Essential hypertension (06/22/13) Atrial fibrillation Depression Hyperlipidemia Morbid obesity Pulmonary fibrosis Palliative care encounter Surgical History Amputated toe of right foot History of Achilles tendon repair PROCEDURES REPAIR OF INTESTINE NEC puncture during colonoscopy Colonoscopy - MAC (~2003) Extraction of cataract 04/15/17 DR. ARRIETA; LEFT EYE 04/29/17 DR. ARRIETA; RIGHT EYE Amputation RIGHT SECOND AND THIRD TOES DUE TO DIABETIC ULCERS WITH CELLULITIS;11/14/17 DR. MAI Family History Mother Neoplasm LUNG Father Heart disease Brother Heart disease Sister No problems noted. Grandfather Heart disease Grandfather Heart disease Grandmother Diabetes Grandmother Diabetes Sister No problems noted. Sister No problems noted. Sister Diabetes Sister No problems noted. Brother No problems noted. Brother No problems noted. Social History Smoking/Tobacco Use Status: Former Tobacco Use Quit Date: 09/26/93 Smoking risk assessment performed?: Yes Alcohol Intake: never Drug use: Rarely Substance use type: does not use Housing: skilled nursing current occupation: [employer] @ [employer] Current gender identity: female Do you feel safe at home: Yes Do you feel safe in your relationship?: Yes
[2025-01-20] MEDS: Ondansetron 4 MG/2 ML VIAL IVP (12:13)
[2025-01-20 12:24] LABS: ALT 14 U/L (14-59); AST 19 U/L (15-37); Albumin 3.2 g/dL (3.4-5.0); Alkaline Phosphatase 106 U/L (46-116); Anion Gap 11.9 mmol/L (3-11); BUN 53 mg/dL (7-18); Bilirubin, Total 1.2 mg/dL (0.2-1.0); CO2 24.1 mmol/L (21.0-32.0); Calcium 10.2 mg/dL (8.5-10.1); Chloride 92 mmol/L (98-107); Estimated GFR 22.03 (mL/min/1.73m2); Glucose 224 mg/dL (74-106); Magnesium 2.1 mg/dL (1.8-2.4); NT-proBNP 4349 pg/mL (<300); Potassium 4.2 mmol/L (3.5-5.1); Sodium 128 mmol/L (136-145); Total Protein 7.6 g/dL (6.4-8.2); Troponin I 31 ng/L (<or=51)
[2025-01-20 13:24] LABS: Troponin I 31 ng/L (<or=51)
--- NOTE | 2025-01-20 13:36 | DI.[facility]_ITS ---
PROCEDURE INFORMATION: Exam: XR Chest Exam date and time: 01/20/2025 11:52 AM Age: 74 years old Clinical indication: Other: Chest pain TECHNIQUE: Imaging protocol: Radiologic exam of the chest. Views: 2 views. COMPARISON: CR XR PORTABLE CHEST AP 09/26/2024 6:43 PM FINDINGS: Lungs: Unremarkable. No consolidation. Pleural spaces: Unremarkable. No pleural effusion. No pneumothorax. Heart/Mediastinum: Unremarkable. No cardiomegaly. Bones/joints: Unremarkable. IMPRESSION: No acute findings. Dictated and Authenticated by: Garfield Allan MD. Orderin [facility]. Dwight Summers MD
[2025-01-20] MEDS: Lactated Ringers 500 ML IV (13:53)
== END 2025-01-20 14:11 | disposition home or self-care (01) ==
PROVIDERS: Emergency Provider Emergency Medicine; PCP Nurse Practitioner Gerontology
DX: R07.9 Chest pain, unspecified (principal); E11.22 Type 2 diabetes mellitus with diabetic chronic kidney disease; I13.0 Hypertensive heart and chronic kidney disease with heart failure and stage 1 through stage 4 chronic kidney disease, or unspecified chronic kidney disease; N18.9 Chronic kidney disease, unspecified; I50.32 Chronic diastolic (congestive) heart failure; E11.40 Type 2 diabetes mellitus with diabetic neuropathy, unspecified; I48.91 Unspecified atrial fibrillation; E78.5 Hyperlipidemia, unspecified; Z79.4 Long term (current) use of insulin; Z79.85 Long-term (current) use of injectable non-insulin antidiabetic drugs; Z79.01 Long term (current) use of anticoagulants
CPT/HCPCS: 80053; 82962; 93005; 96361; 96374; 99285; 71046; 83735; 83880; 84484; 85025; 93010; 99284; J2405

== ENCOUNTER 2025-02-11 18:40 | Outpatient (REF) | payer MEDICARE, MEDICAID, SELFPAY ==
[2025-02-11 18:19] LABS: Abs Immature Grans 0.05 10^3/uL (0.0-0.06); HCT 48.0 % (36.0-46.0); HGB 15.4 g/dL (11.2-15.7); Immature Grans % 0.5 %; MCH 31.2 pg (27.0-33.0); MCHC 32.1 % (32.0-36.0); MCV 97 fL (80-95); MPV 10.5 fL (8.0-11.0); Platelet Count 298 10^3/uL (130-400); RBC 4.93 10^6/uL (3.93-5.22); RDW 14.6 % (11.7-14.6); RDW-SD 52.1 fL; WBC 10.66 10^3/uL (4.4-10.8)
[2025-02-11 18:38] LABS: ALT 22 U/L (14-59); AST 21 U/L (15-37); Albumin 3.7 g/dL (3.4-5.0); Alkaline Phosphatase 142 U/L (46-116); Anion Gap 8.1 mmol/L (3-11); BUN 54 mg/dL (7-18); Bilirubin, Total 1.0 mg/dL (0.2-1.0); CO2 30.9 mmol/L (21.0-32.0); Calcium 9.1 mg/dL (8.5-10.1); Chloride 93 mmol/L (98-107); Estimated GFR 34.05 (mL/min/1.73m2); Glucose 232 mg/dL (74-106); Magnesium 2.4 mg/dL (1.8-2.4); Potassium 4.3 mmol/L (3.5-5.1); Sodium 132 mmol/L (136-145); Total Protein 7.5 g/dL (6.4-8.2)
[2025-02-11 18:53] LABS: Hemoglobin A1C 7.5 % (<5.7)
== END 2025-02-11 18:41 | disposition home or self-care (01) ==
LOC: LBN 18:40
PROVIDERS: PCP Nurse Practitioner Gerontology; Visit Provider Nurse Practitioner Gerontology
DX: R73.03 Prediabetes (principal)
CPT/HCPCS: 80053; 83036; 83735; 85025

== ENCOUNTER → 2025-03-05 13:20 | Outpatient (BNVA) | payer MEDICARE, MEDICAID, SELFPAY | PROVIDERS: PCP Nurse Practitioner Gerontology; Visit Provider Podiatrist | DX: L60.3 Nail dystrophy (principal); B35.1 Tinea unguium; L84 Corns and callosities; E11.42 Type 2 diabetes mellitus with diabetic polyneuropathy; Z79.4 Long term (current) use of insulin; I70.203 Unspecified atherosclerosis of native arteries of extremities, bilateral legs; I87.2 Venous insufficiency (chronic) (peripheral); R60.0 Localized edema; L85.8 Other specified epidermal thickening; M79.674 Pain in right toe(s); R09.89 Other specified symptoms and signs involving the circulatory and respiratory systems; R20.8 Other disturbances of skin sensation; I83.93 Asymptomatic varicose veins of bilateral lower extremities; R23.8 Other skin changes; L53.8 Other specified erythematous conditions; L60.2 Onychogryphosis; L60.8 Other nail disorders | CPT/HCPCS: 11055; 11721 ==

== ENCOUNTER → 2025-03-20 09:40 | Outpatient (BNVA) | payer MEDICARE, MEDICAID, SELFPAY | PROVIDERS: PCP Nurse Practitioner Gerontology; Visit Provider Physician Assistant Surgical | DX: G47.30 Sleep apnea, unspecified (principal); J84.9 Interstitial pulmonary disease, unspecified; Z87.891 Personal history of nicotine dependence | CPT/HCPCS: 36415; 99214 ==

== ENCOUNTER 2025-03-20 15:10 | Outpatient (REF) | payer MEDICARE, MEDICAID, SELFPAY ==
[2025-03-20 13:24] LABS: NT-proBNP 2605 pg/mL (<300)
== END 2025-03-20 15:11 | disposition home or self-care (01) ==
LOC: LBN 15:10
PROVIDERS: PCP Nurse Practitioner Gerontology; Visit Provider Physician Assistant Surgical
DX: I50.32 Chronic diastolic (congestive) heart failure (principal); R60.0 Localized edema
CPT/HCPCS: 83880

== ENCOUNTER 2025-03-28 00:39 | Outpatient (CLI) | payer MEDICARE, MEDICAID, SELFPAY ==
[2025-03-28] MEDS: Levalbuterol HFA 15 GM INH 4 PUFF IH (11:13)
[2025-03-28] MEDS: Inhaler, Assist Device 1 EACH MC (11:13)
--- NOTE | 2025-04-01 08:44 | W.PFT ---
Date of service: 03/28/25 Time of Service: 10:03 Pulmonary Function Test Result Indications: ILD Impression 1. Good patient effort was noted. ATS standards spirometry were met. Only 2/5 trials with plethysmography were completed. 2. Spirometry did not show any obstructive lung disease. FVC was reduced at 64% predicted 3. Following the administration of a bronchodilator there was not a significant response 4. TLC was normal at 87% predicted. No evidence of restrictive lung disease 5. DLCO was reduced at 67% predicted, consistent with a mild defect in alveolar gas exchange
== END 2025-03-28 00:40 | disposition home or self-care (01) ==
LOC: RT 00:39
PROVIDERS: PCP Nurse Practitioner Gerontology; Visit Provider Physician Assistant Surgical
DX: J84.9 Interstitial pulmonary disease, unspecified (principal)
CPT/HCPCS: 94060; 94726; 94729

== ENCOUNTER 2025-04-22 21:06 | Outpatient (REF) | payer MEDICARE, MEDICAID, SELFPAY ==
[2025-04-22 18:38] LABS: Abs Immature Grans 0.03 10^3/uL (0.0-0.06); HCT 47.2 % (36.0-46.0); HGB 15.3 g/dL (11.2-15.7); Immature Grans % 0.4 %; MCH 29.8 pg (27.0-33.0); MCHC 32.4 % (32.0-36.0); MCV 92 fL (80-95); MPV 10.5 fL (8.0-11.0); Platelet Count 269 10^3/uL (130-400); RBC 5.13 10^6/uL (3.93-5.22); RDW 14.8 % (11.7-14.6); RDW-SD 50.4 fL; WBC 8.39 10^3/uL (4.4-10.8)
[2025-04-22 18:40] LABS: Glucose 500 mg/dL (Negative)
[2025-04-22 19:00] LABS: C & S Indicated? Yes; RBC 0-2 HPF (0-2); WBC >50 HPF (0-5)
[2025-04-22 19:12] LABS: Hemoglobin A1C 8.9 % (<5.7)
[2025-04-22 19:17] LABS: Albumin 3.7 g/dL (3.4-5.0); Anion Gap 14.2 mmol/L (3-11); BUN 72 mg/dL (7-18); CO2 24.8 mmol/L (21.0-32.0); Calcium 9.5 mg/dL (8.5-10.1); Chloride 91 mmol/L (98-107); Estimated GFR 24.57 (mL/min/1.73m2); Glucose 214 mg/dL (74-106); Potassium 4.5 mmol/L (3.5-5.1); Sodium 130 mmol/L (136-145); Vitamin D 25 Total 52 ng/mL (30-100)
[2025-04-22 19:29] LABS: Uric Acid 8.3 mg/dL (2.6-6.0)
[2025-04-22 19:39] LABS: COMMENT (LAB VIEW ONLY) 23.30 mg/dL; Microalb ug/mg Crea 62.2 ug/mg Cr
== END 2025-04-22 21:07 | disposition home or self-care (01) ==
LOC: LBN 21:06
PROVIDERS: PCP Nurse Practitioner Gerontology; Visit Provider Nurse Practitioner Gerontology
DX: E11.69 Type 2 diabetes mellitus with other specified complication (principal); N18.4 Chronic kidney disease, stage 4 (severe)
CPT/HCPCS: 80048; 82306; 81003; 81015; 82040; 82043; 82570; 83036; 83970; 84550; 85025; 87086

== ENCOUNTER 2025-05-03 03:11 | Outpatient (CLI) | payer MEDICARE, MEDICAID, SELFPAY ==
--- NOTE | 2025-05-03 13:14 | DI.RAD_ITS ---
Exam(s) XR ELBOW LT COMPLETE EXAM: XR ELBOW LT COMPLETE CLINICAL HISTORY: PAIN, R52,M70.22,BURSITIS. TECHNIQUE: 2D digital imaging was performed. Three views. COMPARISON: No exams were available for comparison FINDINGS: BONES: No acute fracture is present. No bony destructive lesion is seen. Olecranon spur. JOINTS: The elbow is normally aligned. No joint effusion is seen. Degenerative changes at the elbow joint. SOFT TISSUE: Severe swelling at the olecranon consistent with olecranon bursitis. Chronic appearing soft tissue calcifications. IMPRESSION: Severe posterior soft tissue swelling consistent with olecranon bursitis. Prominent olecranon spur. DATA REPOSITORY: RADIATION DOSE DELIVERED:
== END 2025-05-03 03:31 ==
LOC: DI 03:11
PROVIDERS: PCP Legal Medicine; Visit Provider Nurse Practitioner Gerontology
DX: M70.22 Olecranon bursitis, left elbow (principal); R52 Pain, unspecified
CPT/HCPCS: 73080

== ENCOUNTER 2025-05-06 03:30 | Outpatient (CLI) | payer MEDICARE, MEDICAID, SELFPAY ==
--- NOTE | 2025-05-06 06:45 | DI.CT_ITS ---
Exam(s) CT CHEST WO EXAM: CT CHEST WO CLINICAL HISTORY: pain with deep breaths,INTERSTITIAL LUNG DISEASE,J84.9. TECHNIQUE: Imaging protocol: Axial computed tomography images were obtained and coronal and sagittal reformatted images were created and reviewed. Lung Computer Aided Detection (CAD) was utilized. COMPARISON: CT CT CHEST WO from 05/01/2024 CR,XR XR CHEST 2V PA LATERAL from 01/20/2025 FINDINGS: The examination is limited due to patient motion artifact. Tracheobronchial tree: Patent where visualized. No bronchiectasis is present. Pulmonary parenchyma: There are multiple calcified granuloma present. There are no suspicious pulmonary nodules. There is persistent diffuse septal thickening which is unchanged. There again seen ground-glass opacities which have significantly improved compared to the prior examination. There are no focal consolidating infiltrates present. Mediastinum and Jody: No dominant adenopathy or fluid collection. The esophagus is unremarkable. Thyroid gland: Unremarkable. Pleura: No effusion or pneumothorax. Heart: Cardiomegaly. Prominent three-vessel coronary artery calcification is present. No pericardial effusion. Aorta: Thoracic aorta non-dilated. Atherosclerotic calcification is present Upper abdomen: Unremarkable. Lymph nodes: Within normal limits. Soft tissues: Unremarkable. Bones:Within normal limits for the patient's age. There are old healed rib fractures. IMPRESSION: 1. Persistent stable diffuse septal thickening. This may represent chronic interstitial fibrosis or other causes of UIP. 2. Interval significant improvement in the ground-glass opacities. 3. Multiple calcified pulmonary nodules consistent with prior granulomatous disease. 4. There are no focal consolidating infiltrates. RADIATION DOSE DELIVERED: 254.54mGy.cm Total DLP 254.54mGy.cm Total DLP DATA REPOSITORY: All CT scans at this facility are submitted to the National Radiology Data Registry (NRDR) Dose Index Registry (DIR) with the [employer] ([employer]). RADIATION OPTIMIZATION: All CT scans at this facility use at least one of these dose optimization techniques: automated exposure control; mA and/or kV adjustment per patient size (includes targeted exams where dose is matched to clinical indication); or iterative reconstruction.
== END 2025-05-06 03:50 ==
LOC: DI 03:30
PROVIDERS: PCP Legal Medicine; Visit Provider Physician Assistant Surgical
DX: J84.9 Interstitial pulmonary disease, unspecified (principal)
CPT/HCPCS: 71250

== ENCOUNTER → 2025-05-27 10:11 | Outpatient (BNVA) | payer MEDICARE, MEDICAID, SELFPAY | PROVIDERS: PCP Legal Medicine; Visit Provider Physician Assistant Surgical | DX: J84.9 Interstitial pulmonary disease, unspecified (principal); G47.30 Sleep apnea, unspecified; Z87.891 Personal history of nicotine dependence | CPT/HCPCS: 99214 ==

== ENCOUNTER → 2025-06-18 08:28 | Outpatient (BNVA) | payer MEDICARE, MEDICAID, SELFPAY | PROVIDERS: PCP Legal Medicine; Referring Provider Legal Medicine; Visit Provider Podiatrist | DX: M79.671 Pain in right foot (principal); M79.672 Pain in left foot; E11.42 Type 2 diabetes mellitus with diabetic polyneuropathy; Z79.4 Long term (current) use of insulin; B35.1 Tinea unguium; I70.203 Unspecified atherosclerosis of native arteries of extremities, bilateral legs; I87.2 Venous insufficiency (chronic) (peripheral); R60.0 Localized edema; E11.65 Type 2 diabetes mellitus with hyperglycemia; L60.2 Onychogryphosis; L60.3 Nail dystrophy; R09.89 Other specified symptoms and signs involving the circulatory and respiratory systems; R20.8 Other disturbances of skin sensation; I83.813 Varicose veins of bilateral lower extremities with pain; Z89.421 Acquired absence of other right toe(s); R23.8 Other skin changes; L60.8 Other nail disorders | CPT/HCPCS: 11719 ==

== ENCOUNTER → 2025-06-20 00:50 | Outpatient (CLI) | payer MEDICARE, MEDICAID, SELFPAY ==
--- NOTE | 2025-06-20 07:15 | DI.RAD_ITS ---
Exam(s) XR FOOT RT COMPLETE EXAM: XR FOOT RT COMPLETE CLINICAL HISTORY: Pain lt foot,m79.672. TECHNIQUE: 2D digital imaging was performed. Three views. COMPARISON: CR XR FOOT RT COMPLETE from 08/31/2024 FINDINGS: BONES: No acute fracture is present. No bony destructive lesion is seen. Amputation of the 2nd and 3rd toes are again noted. There is hardware in the medial and lateral malleoli. There are large heel spurs. The bones appear osteoporotic. JOINTS: No dislocation present. Degenerative changes are present throughout the tarsal region. SOFT TISSUE: Normal. IMPRESSION: Stable appearance of the foot. No new abnormalities. DATA REPOSITORY: RADIATION DOSE DELIVERED:
--- NOTE | 2025-06-20 07:15 | DI.RAD_ITS ---
Exam(s) XR FOOT LT COMPLETE EXAM: XR FOOT LT COMPLETE CLINICAL HISTORY: Pain rt foot,m79.671. TECHNIQUE: 2D digital imaging was performed. Three views. COMPARISON: CR LEFT FOOT COMPLETE from 11/14/2017 CR XR ANKLE LT COMPLETE from 05/23/2019 FINDINGS: BONES: No acute fracture is present. No bony destructive lesion is seen. Bones appear osteoporotic. There are prominent heel spurs. JOINTS: No dislocation present. There are degenerative changes in the intertarsal region. SOFT TISSUE: Focal calcification in the posterior soft tissues which may be within the Achilles tendon. Soft tissue swelling around the foot. IMPRESSION: Heel spurs and degenerative changes. DATA REPOSITORY: RADIATION DOSE DELIVERED:
== END ==
LOC: DI 00:50
PROVIDERS: PCP Legal Medicine; Visit Provider Podiatrist
DX: M19.072 Primary osteoarthritis, left ankle and foot (principal); M77.32 Calcaneal spur, left foot; S98.22 Partial traumatic amputation of two or more lesser toes; X58.XXXD Exposure to other specified factors, subsequent encounter
CPT/HCPCS: 73630

== ENCOUNTER 2025-06-20 01:40 | Outpatient (CLI) | payer MEDICARE, MEDICAID, SELFPAY ==
[2025-06-20 11:39] LABS: Abs Immature Grans 0.04 10^3/uL (0.0-0.06); HCT 46.2 % (36.0-46.0); HGB 15.5 g/dL (11.2-15.7); Immature Grans % 0.4 %; MCH 31.0 pg (27.0-33.0); MCHC 33.5 % (32.0-36.0); MCV 92 fL (80-95); MPV 10.3 fL (8.0-11.0); Platelet Count 274 10^3/uL (130-400); RBC 5.00 10^6/uL (3.93-5.22); RDW 15.0 % (11.7-14.6); RDW-SD 50.5 fL; WBC 9.70 10^3/uL (4.4-10.8)
[2025-06-20 12:16] LABS: Glucose >=1000 mg/dL (Negative)
[2025-06-20 12:25] LABS: Creatine Kinase 167 U/L (34-145)
[2025-06-20 12:26] LABS: ALT 17 U/L (10-49); AST 24 U/L (<34); Albumin 4.1 g/dL (3.2-5.0); Alkaline Phosphatase 102 U/L (46-116); Anion Gap 9.7 mmol/L (3-11); BUN 54 mg/dL (9-23); Bilirubin, Total 0.8 mg/dL (0.2-1.2); CO2 24.4 mmol/L (20.0-31.0); Calcium 9.5 mg/dL (8.3-10.6); Chloride 95 mmol/L (98-107); Glucose 199 mg/dL (74-106); Potassium 4.5 mmol/L (3.5-5.1); Sodium 129 mmol/L (136-145); Total Protein 7.7 g/dL (5.7-8.2)
[2025-06-20 12:27] LABS: C & S Indicated? Yes; WBC >50 HPF (0-5)
[2025-06-20 12:29] LABS: Ferritin 42 ng/mL (7-271)
[2025-06-20 18:42] LABS: HBs Antibody, Quant <3.1 mIU/mL (See Note); Hepatitis B Surface Ab Negative (See Note)
[2025-06-20 19:22] LABS: Hep B Core Antibody Negative (Negative)
[2025-06-20 21:05] LABS: Hepatitis C Ab w Rflx HCV PCR Negative (Negative)
[2025-06-21 09:19] LABS: RNP Ab, IgG <6.0 CU (<20.0); Ro60 Ab, IgG <7.0 CU (<20.0); SS-A/Ro, IgG <2.3 CU (<20.0)
[2025-06-21 10:34] LABS: Kappa Free Light Chain 6.17 mg/dL (0.33-1.94); Lambda Free Light Chain 5.28 mg/dL (0.57-2.63)
[2025-06-21 15:26] LABS: Albumin 48.4 % (55.8-66.1); Albumin g/dL 3.5 g/dL (3.6-5.2); Alpha 1 g/dL 0.30 g/dL (0.15-0.40); Alpha 2 g/dL 0.90 g/dL (0.50-1.00); Beta g/dL 1.10 g/dL (0.60-1.20); Gamma g/dL 1.40 g/dL (0.60-1.60); Total Protein 7.3 g/dL (6.3-8.2)
[2025-06-24 11:22] LABS: Myeloperoxidase Ab IgG <0.2 U (>=0.4); Scl 70 Antibodies, IgG <0.2 U; Sm (Smith) Ab, IgG <0.2 U
== END 2025-06-20 01:41 | disposition home or self-care (01) ==
LOC: LBO 01:40
PROVIDERS: PCP Legal Medicine; Visit Provider Student in an Organized Health Care Education/Training Program
DX: J84.9 Interstitial pulmonary disease, unspecified (principal); Z11.59 Encounter for screening for other viral diseases
CPT/HCPCS: 36415; 80053; 82550; 83516; 83520; 86200; 86235; 86704; 86706; 86803; 87077; 87340; 81003; 81015; 82728; 83883; 84155; 84156; 84165; 85025; 86160; 86225; 86320; 86431; 86480; 87086; 87186

== ENCOUNTER → 2025-06-27 13:00 | Outpatient (BNVA) | payer MEDICARE, MEDICAID, SELFPAY | PROVIDERS: PCP Legal Medicine; Referring Provider Legal Medicine; Visit Provider Podiatrist | DX: M79.671 Pain in right foot (principal); M79.672 Pain in left foot; E11.42 Type 2 diabetes mellitus with diabetic polyneuropathy; E11.65 Type 2 diabetes mellitus with hyperglycemia; I70.203 Unspecified atherosclerosis of native arteries of extremities, bilateral legs; I87.2 Venous insufficiency (chronic) (peripheral); R60.0 Localized edema; Z79.4 Long term (current) use of insulin; B35.1 Tinea unguium | CPT/HCPCS: 99214 ==